=== PATIENT | male | born 1950 | race Caucasian/White ===

== ENCOUNTER → 2020-10-16 11:58 | Outpatient (BNVA) | payer OTHER, MEDICARE, SELFPAY | PROVIDERS: Visit Provider Surgery | DX: Z20.822 Contact with and (suspected) exposure to COVID-19 (principal) | CPT/HCPCS: 87635 ==

== ENCOUNTER 2020-10-21 16:47 | Observation (INO) | payer OTHER, MEDICARE, SELFPAY ==
[2020-10-20 09:45] VITALS: BMI 26.5
[2020-10-21] VITALS (13 sets, daily range): BP systolic 125–149; BP diastolic 86–98; PULSE 49–80; RESP 15–19; TEMP 36.6–36.7; O2SAT 2–100
--- NOTE | 2020-10-21 11:08 | W.PM.OPSUD ---
Surgery/Procedure H&P Update DATE OF PROCEDURE: October 21, 2020 DATE H&P PERFORMED: 10/09/20 H&P UPDATE INFORMATION: I have reviewed H&P completed within last 30 days, I have examined patient prior to procedure and No changes to prior documentation PREOP DIAGNOSIS: Incisional hernia PLANNED PROCEDURE: Operation Date: 10/21/20 12:05 Proposed Procedures p Laparoscopic possible open Incisional Hernia Repair w/mesh 08607 k43.2(Not Applicable) - Dewey Wan MD
[2020-10-21] MEDS: sodium chloride 0.9% 1,000 ML 30 ML IV (11:18)
--- NOTE | 2020-10-21 11:20 | P.ANESASSM_ITS ---
Pre-Anesthetic Assessment Pre-Anesthetic Assessment: Height/Weight: Height 1.78 m Weight 83.915 kg Temp Pulse Resp BP Pulse Ox 98 F 78 16 125/86 95 10/21/20 11:01 10/21/20 11:01 10/21/20 11:01 10/21/20 11:01 10/21/20 11:01 Preop Diagnosis: Incisional hernia Proposed Procedure: Operation Date: 10/21/20 12:05 Proposed Procedures p Laparoscopic possible open Incisional Hernia Repair w/mesh 74287 k43.2(Not Applicable) - Dewey Wan MD Was Beta Dinora taken within 24 hours: Yes Was Clonidine taken within 24 hours: N/A Last intake: Intake Last Liquid Date 10/20/20 Last Liquid Time 22:30 Last Solid Date 10/20/20 Last Solid Time 20:00 Social: Social History: Tobacco (h/o smoking quit 2 months ago) and No alcohol Exam: Pre-Anes Outpt Exam: alert and oriented x 3 Additional Exam Findings (including area of procedure): BBS decreased, irreg Airway: Submandibular: WNL Cervical ROM: WNL MP: 2 Dentition: Full Additional comments: [place] [facility]: Pulmonary: COPD and Sleep apnea CV/HEM: CV/HEM: Afib and HTN Neuropsych: Neuropsych: Seizure Anesthetic Plan: ASA status: 3 Anesthesia: General Risk of > 500 ml b lood loss (7ml/kg in children): No Meds/Allergies Current Medications: Current Medications Generic Name Dose Route Start Last Admin Trade Name Freq PRN Reason Stop Dose Admin Sodium Chloride 1,000 mls @ 30 ml s/hr 10/21/20 11:00 10/21/20 11:18 Sodium Chloride 0.9% IV 10/22/20 10:59 30 mls/hr .Q24H JANE Administration PFSH Anesthesia PFSH: Medical History (Updated 10/09/20 @ 11:55 by Dewey Wan MD) A-fib COPD (chronic obstructive pulmonary disease) Hypertension Sleep apnea in adult Surgical History (Updated 10/09/20 @ 11:55 by Dewey Wan MD) History of AAA (abdominal aortic aneurysm) repair 2009 History of colonoscopy with polypectomy 2018 History of left inguinal hernia repair 2016 History of vascular surgery rt and left leg 2019 Family History (Updated 10/09/20 @ 11:01 by Ananya Mishra RN) Denies family history of Anesthesia complication Bleeding disorder Social History (Updated 10/09/20 @ 11:01 by Ananya Mishra RN) Smoking and tobacco status: current every day smoker cigarettes and cigars Data Anesthesia Cardiac Studies: No Data to Display
--- NOTE | 2020-10-21 12:26 | PM.OP ---
Operative Report Date of procedure: October 21, 2020 Pre-op Diagnosis: Incisional hernia Post-op Diagnosis: Reducible incisional hernia Procedure Done: Laparoscopic repair of incisional hernia with Proceed mesh measuring 20 x 20 cm Pathology: none sent Surgeon: Dewey Wan Anesthesia: General Condition: stable Disposition: PACU Procedure: The patient was taken to the Operating Room and was intubated under general anesthesia after the antibiotic had been administered. The abdomen was prepped and draped in a sterile manner. Using a 15 blade, a 2-cm incision was made in the right upper quadrant in the anterior axillary line and pneumoperitoneum was created using Verres needle. A 10 mm Ricky port was placed and 15 mm of pneumoperitoneum was created after a 10 mm 30? scope had been introduced. 5 mm ports were placed in the left lower quadrant under direct visualization. A spinal needle was introduced through the abdominal wall and the edges of the hernial defect were marked and measured 10 x 10 cm. A 5 cm margin was marked on the abdominal wall on the outer edge of the hernial defect. 20 x 20 cm Proceed mesh was then cut and 4 separate 2-0 [place]Julian sutures were placed at the 4 corners of the mesh. Grannie needle was passed through the stab incisions and used to grasp the free ends of the [place]Jul[place] sutures which were then used to pull the mesh up against the abdominal wall; 5 mm SecurStraps were placed 1 cm apart along the edge of the mesh to hold it against the abdominal wall. At the end of this, it was noted that the mesh was well positioned over the hernial defect. 40 cc of saline, Exparel and 0.5% Marcaine was infiltrated under laparoscopic visualization bilaterally for a TAP block. All ports were removed under direct visualization and there was no bleeding noted from the port sites. The external oblique aponeurosis was approximated at this port site using figure of eight 0 Vicryl suture. The subcutaneous tissue was approximated using 3-0 Vicryl sutures. The skin at port sites was closed using subcuticular 4-0 Monocryl suture. The stab incisions and the port sites were covered with Dermabond. Abdominal binder was placed at the end of the procedure. The patient was extubated and transferred to recovery room in stable condition.
--- NOTE | 2020-10-21 12:42 | SUR.PHASEI ---
1240- ORAL AIRWAY OUT, SIMPLE MASK AT 6LPM. SAT 100%
[2020-10-21] MEDS: HYDROcodone-acetaminophen 5-325 mg Tablet 1 TAB PO ×2 (12:59→15:50)
--- NOTE | 2020-10-21 13:48 | ANE.PACU2 ---
Inpatient post-anesthesia follow up: Airway intact: Yes Vital signs: Temperature 98 F Pulse Rate 53 Respiratory Rate 16 Blood Pressure 142/92 Pulse Oximetry 95 Oxygen Delivery Me thod Room Air Oxygen Flow Rate 6 Fraction of Inspir ed Oxygen Hydration adequate: Yes Nausea and vomiting: No Pain level: 2 Mental status: Baseline
[2020-10-21] MEDS: morphine 4 mg/mL SDV 1 mL IVP (14:21)
--- NOTE | 2020-10-21 15:53 | SUR.PHASEII ---
1545 dr canchola here and new orders noted,order for another pain rx and incentive spirometer to go home with this,respiratory here and instructed on this and demonstrated understanding
--- NOTE | 2020-10-21 16:18 | SUR.PHASEII ---
1600 pt sitting up on side of bed and stood up for about 1 minute and stated he wants back to bed to lie down,informed dr canchola about this and will call for ops bed,pt and daughter informed of this
--- NOTE | 2020-10-21 16:47 | SUR.PHASEII ---
1635 report to Judith Ludwig LPN on 2nd floor and brought pt via stretcher with daughter Johana at bedside
[2020-10-21] MEDS: ketorolac 30 mg/mL INJ 15 MG IVP ×2 (17:22→23:06)
[2020-10-21] MEDS: levETIRAcetam 500 mg Tablet PO (17:41)
[2020-10-21] MEDS: sennosides-docusate Tablet 1 TAB PO (17:41)
[2020-10-21] MEDS: D5-NS 0.45% + KCL 20 mEq 20 MEQ/1,000 ML BAG 50 MEQ IV (17:41)
[2020-10-21] MEDS: metoprolol tartrate 25 mg Tablet PO (17:41)
[2020-10-22] VITALS (9 sets, daily range): BP systolic 133–148; BP diastolic 75–93; PULSE 57–67; RESP 16–18; TEMP 36.4–36.9; O2SAT 88–100
[2020-10-22] MEDS: ketorolac 30 mg/mL INJ 15 MG IVP ×2 (05:21→10:24)
[2020-10-22] MEDS: albuterol 8 gm MDI 1 PUFF INHALATION ×2 (08:05→11:24)
--- NOTE | 2020-10-22 08:33 | PC.NURSE ---
Abdominal wounds inspected. No drainage noted three stabs dermabond intact. Patient wearing abdominal binder and only complaints of bloated feeling. Has burped but not passed any gas or had any bowel movements thus far in the shift. Will continue to monitor.
[2020-10-22] MEDS: sennosides-docusate Tablet 1 TAB PO (08:34)
[2020-10-22] MEDS: metoprolol tartrate 25 mg Tablet PO (08:34)
[2020-10-22] MEDS: levETIRAcetam 500 mg Tablet PO (08:34)
--- NOTE | 2020-10-22 11:25 | PC.CHAP ---
Pastoral Care Encounter/Spiritual Assessment Type of Contact [] Declined senior clerk visit [] Patient/Family/Request visit [] Outpatient visit [] Follow-up visit [] Physician referral [] Code/Alert [x] Routine visit [] Staff referral [] Actively dying [] Patient sleeping [] Family support [] [] Out of room [] Palliative care [] [x] Receiving care in room [] Pre-surgical visit [] Trauma [] Long length of stay [] ICU visit [] Other: Relational/Emotional Strength [x] Patient feels connected with others/family/visitors/staff [] Distress [] Loneliness/isolation [] Abandonment Spirituality of Patient [x] Person of Jessie [] Attends Anabaptist of their Jessie [x] Believes in Prayer [] Reads Bible or Worship materials [] There are Spiritual issues to be addressed Pharmacy Teacher Interventions [x] Prayer [x] Active listening [x] Non-anxious presence [x] Spiritual/emotional support [] Crisis/trauma care [x] Spiritual counseling [] Bereavement support [] Provided bereavement packet [] Provided Bible/devotional materials [] Provided toy/stuffed animal, coloring book to patient or family member [] Provided Communion [] Anointing/[place] [] Salvation [x] Completed spiritual assessment [] Other: Impact on Illness or Injury [] Angry [] Fearful [x] Anxious [] Often cries [] Exhaustion [] Unable to work [] Unable to attend methodist [] Unable to walk/stand [] Unable to read [] Unable to drive [] Unable to eat/drink [] Unable to sleep [] Unable to be with family [] Patient intubated [] Other: Summary has had surgery on herna feels good going home. Time spent with patient 10 mins
--- NOTE | 2020-10-22 12:33 | PM.DCS ---
Discharge Providers Date of Admission: 10/21/20 16:47 Date of Discharge: October 22, 2020 Attending Provider at Admission: Dewey Wan MD Attending Provider at Discharge: Dewey Wan MD Reason for Visit Reason for Visit: lap poss open incisional hernia Hospital Course Hospital Course This is a 70-year-old male who underwent laparoscopic repair of incisional hernia on 10/21/2020. Patient had issues with pain control and hypoxia postop and was admitted overnight for observation. At time of discharge he was tolerating a regular diet, ambulating and his pain was well controlled with oral pain medications. His vital signs were stable. Physical Exam Narrative: EXAM NARRATIVE: Abdomen: Soft, tender, Aftab distended Discharge Data Data Completed and Pending: Pending at discharge Category Date Time Status ES surgery / GI i mages Routine Exams 10/21/20 11:01 Taken Vitals: Last Vital Signs Temp 97.9 F 10/22/20 12:00 Pulse 62 10/22/20 12:00 Resp 18 10/22/20 12:00 BP 133/75 10/22/20 12:00 Pulse Ox 88 L 10/22/20 12:00 Discharge Plan Discharge Patient Disposition: Home Condition: Stable Prescriptions: New hydrocodone-acetaminophen 5-325 mg tablet 1 tab PO Q6H PRN (Reason: pain) Qty: 20 RF: 0 Zofran 4 mg tablet 4 mg PO Q6H PRN (Reason: nausea and vomiting) Qty: 20 RF: 0 Colace 100 mg capsule 100 mg PO BID Qty: 30 RF: 0 Continued apixaban 5 mg tablet 5 mg PO BID RF: 0 dofetilide 500 mcg capsule 500 mcg PO Q12H RF: 0 levalbuterol tartrate 45 mcg/actuation HFA aerosol inhaler 2 inh inhalation Q6H RF: 0 levetiracetam 500 mg tablet 500 mg PO BID RF: 0 tiotropium bromide 18 mcg capsule, w/inhalation device 1 cap inhalation DAILY RF: 0 metoprolol tartrate 25 mg tablet 25 mg PO BID RF: 0 albuterol sulfate [ProAir HFA] 90 mcg/actuation HFA aerosol inhaler 1 inh inhalation QID RF: 0 Discharge Orders: Discharge Order (Routine); Ordered 10/22/20 Ordered By: Dewey Wan Referrals: Dewey Wan MD [Physician] - 11/06/20 10:15 am Patient Instructions: Hydrocodone/Acetaminophen (By mouth), Laxative, Stool Softeners (By mouth), Ondansetron (By mouth), Ventral Hernia (GEN), Post Anesthesia Care Activity Restrictions/Additional Instructions: Diet Advance to normal diet as tolerated, increase fluid intake as much as possible. Activity Avoid strenuous activity for 2 weeks but continue with daily activities including walking as tolerated. Do not lift more than 10 pounds for 2 weeks Return to work/school You can return to work/ school whenever you feel ready as long as you don?t have to lift more than 10 pounds at work. If you have paperwork that needs to be completed for time off from work, please contact my office Driving You can resume driving once you stop using narcotic pain medications, and transition to non-opioid pain medications like Tylenol, Motrin, Aleve, etc. Medications Pain Take opioid pain medications as prescribed and transition to non-opioid pain medications like Tylenol, Motrin, Aleve etc. over the next few days. The goal of the pain medications is to make the pain bearable and not to be pain free since you recently had surgery. Resume all home medications after surgery as per the medication reconciliation list Nausea Nausea is common after surgery, take nausea medications as needed and stay on a liquid bland diet until nausea resolves. Constipation The combination of surgery, anesthesia and pain medications can result in constipation. Take stool softeners as prescribed. If you do not have a bowel movement in 3 days, please take an pypv-eom-kufkigy laxative like MiraLAX to address the constipation. Shower It is ok to shower but avoid getting the wound wet for 48 hours after surgery. Do not soak in bathtub, swimming pool or hot tub for 2 weeks. Wound care Wear abdominal binder at all times while ambulating, you to can take it off when you are in bed The glue applied to the incision will peel slowly over the next two weeks. The stitches used are dissolvable and will not need to be removed. Do not apply antibiotics or other medications on the incision Problems with the wound You can develop some redness around the incision from bruising after surgery. If there is increasing pain, redness, tenderness around the incision with or without drainage, please contact my office to rule out an infection. Sometimes the skin at the incisions can separate, resulting in reopening of the wound. Cover the wound with antibiotic cream and sterile dressings and contact my office. Contact physician Call the office at [phone] during office hours or go the Emergency Room after hours for - ?Fever to 100.4 or greater ?Shaking chills ?Pain that increases over time ?Redness, warmth, or pus draining from incision sites ?Persistent nausea or inability to take in liquids Discharge Attestations Time Spent in Discharge Care*: less than 30 min Quality Metrics Clinical Quality Measures During this hospital stay, did patient experience: None Coding Level of Care Code [facility] VITOR note
--- NOTE | 2020-10-23 11:22 | PC.RESP ---
Smoking Cessation and Pulmonary Rehab information sent to patient
== END 2020-10-22 16:15 | disposition home or self-care (01) ==
LOC: MEDSURG 16:48
PROVIDERS: Admitting Provider Surgery; Visit Provider Surgery
PROC: 0WQF4ZZ Repair Abdominal Wall, Percutaneous Endoscopic Approach (ICD-10-PCS; CPT 49654; principal; 2020-10-21 11:55)
DX: K43.2 Incisional hernia without obstruction or gangrene (principal); I48.91 Unspecified atrial fibrillation; J44.9 Chronic obstructive pulmonary disease, unspecified; I10 Essential (primary) hypertension; G47.30 Sleep apnea, unspecified; F17.210 Nicotine dependence, cigarettes, uncomplicated
CPT/HCPCS: 49654; 94640; 96374; C9290; G0378; J0690; J1100; J1885; J2250; J2270; J2405; J2704; J2710; J3010; J3490; J3535; J7030

== ENCOUNTER 2020-10-26 16:47 | Inpatient (IN) | payer OTHER, MEDICARE, SELFPAY ==
[2020-10-26] VITALS (10 sets, daily range): BP systolic 109–131; BP diastolic 77–98; PULSE 60–100; RESP 16–24; TEMP 36.7–37.2; O2SAT 93–100; BMI 26.1
--- NOTE | 2020-10-26 | XRR_ITS ---
[facility] Final Radiology Report Call: [phone] Name: CHICHO FIGUEREDO Age: 70Years U Date: 10/26/2020 SSN: -- : 1950 Study: XR ABDOMEN COMPLETE W A SNGL VIEW CXR Requesting Physician: FRIEDA WALDRON PROCEDURE INFORMATION: Exam: XR Complete Acute Abdomen Series Exam date and time: 10/26/2020 6:24 PM Age: 70 years old Clinical indication: Bloating and other: Cough; Prior surgery; Surgery type: Hernia, aaa TECHNIQUE: Imaging protocol: XR complete acute abdomen series, including 2 or more views of the abdomen and a single view chest. COMPARISON: ES surgery / GI images 10/21/2020 8:01 AM FINDINGS: Lungs: Normal. No consolidation. Pleural spaces: Normal. No pleural effusions. No pneumothorax. Heart/Mediastinum: Normal. No cardiomegaly. Gastrointestinal tract: Dilated small bowel loops with air-fluid levels. Moderate fecal volume. Intraperitoneal space: No free air. Surgical clips in the left abdomen and the left groin. Vasculature: Scattered atherosclerosis. Bones/joints: Normal. No acute fracture. Soft tissues: Normal. Other findings: EVAR noted in the abdomen and pelvis. IMPRESSION: 1. Dilated bowel loops with air-fluid levels suspicious for small bowel obstruction. 2. Negative chest. Thank you for allowing us to participate in the care of your patient. Dictated and Authenticated by: Grzegorz Goddard MD 10/26/2020 7:15 PM Central Time ([place] & [place]) MARY
[2020-10-26 17:34] LABS: Basophils % 0.3 %; Eosinophils # 0.2 10^3/uL (0.0-0.8); Eosinophils % 1.6 %; Hematocrit 45.5 % (42.0-52.0); Hemoglobin 15.1 g/dL (11.7-16.6); Lymphocytes # 0.9 10^3/uL (0.8-4.8); Lymphocytes % 6.9 %; Mean Corpuscular HGB Conc 33.2 g/dL (30.0-36.0); Mean Corpuscular Hemoglobin 29.4 pg (28.0-34.0); Mean Corpuscular Volume 88.5 fL (80-94); Mean Platelet Volume 10.2 fL (7.4-10.4); Monocytes # 1.5 10^3/uL (0.2-0.9); Monocytes % 12.2 %; Neutrophils # 9.77 10^3/uL (1.8-7.7); Neutrophils % 78.7 %; Nucleated Red Blood Cells % 0 %; Platelet Count 251 10^3/cmm (130-400); Red Blood Count 5.14 10^6/uL (4.1-5.3); Red Cell Distribution Width 13.4 % (12.1-15.1); White Blood Count 12.4 10^3/uL (4.0-10.0)
--- NOTE | 2020-10-26 17:37 | ECG_ITS ---
[facility] Test Date: 2020-10-26 Pat Name: Kimo Hernandez Department: Room: Gender: Male Tobacco Educator: : 1950 Requested By: Rosey Cooper Order Number: [id number] Ben MD: Samina Brewster M.D. Measurements Intervals [place] Rate: 92 P: NV: QRS: 58 QRSD: 110 T: 29 QT: 383 QTc: 476 Interpretive Statements ATRIAL FIBRILLATION NONSPECIFIC T-WAVE ABNORMALITY ABNORMAL RHYTHM ECG No previous ECG available for comparison Electronically Signed On 10-27-2020 12:11:06 CDT by Samina Brewster M.D. [email or web address]
[2020-10-26] MEDS: sodium chloride 0.9% 1,000 ML 999 ML IV (17:47)
[2020-10-26 17:52] LABS: Lactate (Lactic Acid level) 1.4 mmol/L (0.5-2.2)
[2020-10-26 17:53] LABS: Alanine Aminotransferase 16 U/L (0-41); Albumin Level 3.6 g/dL (3.5-5.2); Alkaline Phosphatase 51 IU/L (40-130); Anion Gap 13.3 (5-19); Aspartate Amino Transferase 18 U/L (0-40); Blood Urea Nitrogen 26 mg/dL (8-23); Calcium 8.6 mg/dL (8.5-10.5); Carbon Dioxide 28 mmol/L (22-29); Chloride 99 mmol/L (98-107); Globulin 2.5 g/dL (1.3-4.6); Glomerular Filtration Rate 133.2 mL/min (90-130); Glucose 115 mg/dL (65-115); Lipase 23 U/L (13-60); Osmolality Calculated 288 mOsm/kg (285-295); Potassium 4.3 mmol/L (3.5-5.1); Sodium 136 mmol/L (136-145); Total Bilirubin 1.2 mg/dL (0.15-1.2); Total Protein 6.1 g/dL (6.6-8.7)
--- NOTE | 2020-10-26 17:53 | W.ED.ABDPA2 ---
HPI - Abdominal Pain General: Chief Complaint: Abdominal Pain Stated Complaint: bloating, post surgery () Time Seen by Provider: 10/26/20 17:13 Source: patient and family (daughter) Mode of arrival: ambulatory Limitations: no limitations History of Present Illness: HPI narrative: Pleasant 70-year-old male patient presents to the emergency department with his daughter who is at bedside. He reports hernia surgery by Dr. Wan on Wednesday, October 21, 2020. He states did not feel well after surgery and was kept overnight. He reports was discharged the following day, states was still not feeling well, describes not feeling well as nausea vomiting and weakness. He states went home. His daughter reports he continued to decline over the weekend. She took him to [place] to the MA who then referred him to [facility] last night. CT scan of the chest abdomen pelvis completed, patient states he was negative for blood clot, denies bowel obstruction, received fleets enema with passage of gas and bowel movement. He states was feeling better after receiving IV fluids and went home. His daughter states today, he is continued to decline again. He was sent to the ED for evaluation by Dr. Wan. I have inquired from [place] CT scans and serology results from yesterday's visit. He reports increased shortness of breath, history of atrial fibrillation, resumed his Eliquis last night. He reports thickened sputum, has history of COPD. Oxygen was initiated last night for home use while at [place]. He denies chest pain. He states his shortness of breath is due to progressive weakness from the surgery. He reports is not passing gas nor has he had a bowel movement today. He reports not able to drink very much as he his belly feels full. He denies nausea vomiting fever or chills. Quality: other (Complains of bloating, denies abdominal pain) Context: recent surgery/procedure Associated Symptoms: Reports anorexia, bloating, change in bowel habits and constipation; Denies chills, dysuria and fever(s) Review of Systems General: Reports: 10 or more systems reviewed and unremarkable except in HPI and below Const: Denies: fever(s), chills or diaphoresis Eyes: Denies: blurry vision or eye redness ENMT: Denies: throat pain, dental pain or disequilibrium Card: Denies: chest pain, palpitations or irregular heart rhythm Resp: Denies: dyspnea, productive cough, non-productive cough or wheezing GI: Reports: constipation, bloating and change in bowel habits : Denies: dysuria Musc: Denies: neck pain, back pain, joint pain or joint warmth Skin/Breast: Denies: rash or pruritus Neuro: Denies: headache(s), weakness in extremities or behavioral changes Psych: Denies: anxiety, depression, sleeping more or change in appetite Alpesh/Lymph: Denies: easy bruising PFSH ED PFSH: Medical History A-fib COPD (chronic obstructive pulmonary disease) Hypertension Sleep apnea in adult Surgical History History of AAA (abdominal aortic aneurysm) repair 2009 History of colonoscopy with polypectomy 2018 History of left inguinal hernia repair 2016 History of vascular surgery rt and left leg 2019 S/P hernia repair incisional Family History Denies family history of Anesthesia complication Bleeding disorder Social History Smoking and tobacco status: current every day smoker cigarettes and cigars Physical Exam Const: COMMON NORMALS: no acute distress, patient oriented x3 and alert GENERAL APPEARANCE: cooperative, well kempt, well developed and frail appearing; not anxious and not ill appearing NUTRITIONAL APPEARANCE: overweight ORIENTATION/CONSCIOUSNESS: Yes awake, Yes oriented to person, Yes oriented to place and Yes oriented to time HENMT: COMMON NORMALS: normocephalic, atraumatic, EAC's normal, Normal external nose present and moist oral mucous membranes HEAD & SCALP: normal to inspection, normocephalic and atraumatic FACE & SINUS: normal facial exam and face symmetric NOSE: Normal external nose present and Normal nares present EXTERNAL AUDITORY CANAL: EAC's normal MOUTH: lip normal, tongue normal and moist mucous membranes abnormal (dry) Eye: COMMON NORMALS: Equal, round and reactive pupils present and EOMs intact bilaterally GENERAL EYE: appearance normal, both eyes and all related structures PUPIL: Yes Equal, round and reactive pupils present Neck/C-Spine: COMMON NORMALS: full ROM and no lymphadenopathy GENERAL: Yes normal visual inspection and Yes trachea midline CERVICAL SPINE: Yes cervical ROM normal Lymph: LYMPHATIC: no lymphadenopathy noted Chest: COMMONS NORMALS: normal inspection of the chest, normal palpation of entire chest wall and normal palpation of the breasts BREAST/AXILLA PALPATION: Yes normal palpation of the breasts Resp: COMMON NORMALS: normal respiratory effort, No retractions, No use of accessory muscles and clear to auscultation bilaterally EFFORT & INSPECTION: Yes able to speak in complete sentences AUSCULTATION: clear to auscultation bilaterally Cardio: COMMON NORMALS: regular rate, regular rhythm, S1 normal heart sound present, S2 normal heart sound present and Peripheral pulses 2+ throughout RATE: regular rate RHYTHM: regular rhythm HEART SOUNDS: S1 normal heart sound present and S2 normal heart sound present PERIPHERAL PULSES: Peripheral pulses 2+ throughout GI: COMMON NORMALS: Soft to palpation INSPECTION: Yes abdominal wall ecchymosis (From surgery), No Abdominal wall edema, Yes abdominal distension, Yes incision Inspection of incision: healing well, Yes central obesity and Yes scar AUSCULTATION: Yes Hypoactive bowel sounds present PALPATION: Yes Soft to palpation : COMMON NORMALS: Yes no CVA tenderness BLADDER/KIDNEY EXAM: Yes no CVA tenderness Back/Pelvis: COMMON NORMALS: no CVA tenderness and thoracic and lumbar spine normal to inspection Extremity: COMMON NORMALS: normal to inspection, full ROM, capillary refill normal, no clubbing, cyanosis or edema, no calf tenderness and no pedal edema GENERAL: Yes normal exam except as noted Neuro: COMMON NORMALS: patient oriented x3 and no focal motor deficits SENSORIUM/ORIENTATION: Yes alert, Yes oriented to person, Yes oriented to place and Yes oriented to time Psych: COMMON NORMALS: mental status grossly normal, Normal thought process present, cooperative, normal affect, speech normal and activity/motor behavior normal APPEARANCE: Yes well kempt ACTIVITY/MOTOR BEHAVIOR: Yes appropriate eye contact SPEECH: Yes normal speech THOUGHT PROCESS: Normal thought process present Skin: COMMON NORMALS: no rashes or lesions noted and turgor normal GENERAL SKIN EXAM: no rashes or lesions noted and turgor normal Course Consultations: Consultation #1: Dr Wan, discussed with Dr. Wan history of present illness along with patient's visit to [place] yesterday. CT scan from today, x-ray abdominal series and serology findings discussed. Advised to admit under his services with consulting hospitalist in regards to atrial fibrillation and elevated troponin. Advised NG tube at this time with Pepcid 20 mg twice daily, advised CBC and BMP in the morning. Consultation #2: Dr. Martines, hospitalist, history of present illness, clinical findings as well as radiology and serological findings discussed. Also discussed my conversation with Dr. Wan. Advised Lovenox 1 mg/kg subcu twice daily, advised to admit to telemetry on MedSurg. Time: 20:15 Vital Signs: Vital signs: Vital Signs Temperature 98.0 F 10/26/20 22:32 Pulse Rate 81 10/26/20 23:11 Respiratory Rate 17 10/26/20 23:05 Blood Pressure 131/77 10/26/20 22:32 Pulse Oximetry 93 10/26/20 23:05 MDM - Abdominal Pain MDM Narrative: Medical decision making narrative: 70-year-old male patient presents to the emergency department with continued weakness and abdominal distention following hernia surgery approximately 1 week ago. Lactic acid 1.4, CBC with slight elevation 12.4 thousand. He is not anemic. Platelets normal. Creatinine 0.6. Heart rhythm noted to be atrial fibrillation upon exam. He has complained of shortness of breath, was provided oxygen for home use by [facility] last night. Cardizem administered here in the ED due to rate increasing to 110-115. He converted to sinus rhythm with occasional supraventricular premature complexes. Ventricular rate 70-80. Blood pressure has remained normal. Serial troponins with negative delta -1.02. Acute abdominal series findings with normal chest but presumed small bowel obstruction, CT abdomen pelvis with IV contrast revealed nonspecific dilated loops of the small bowel with scattered air-filled levels most likely representing ileus pattern. Spoke with Dr. Wan regarding findings, advised to consult hospitalist in regards to atrial fibrillation and elevated troponin. Oxygen saturation remained 92 to 98% during his stay on 2 L nasal cannula. I have requested CT scans from [place], scan results are still pending at this time. Daughter informed me he did not have a blood clot, CTA of chest abdomen pelvis remain requested from [place]. They are not available for my review. I discussed this with hospitalist Dr. Martines. Differential Diagnosis: Differential diagnosis abdominal pain: Likely abdominal pain, acute appendicitis, constipation and small bowel obstruction Lab Data: Labs: Lab Results 10/26/20 10/26/20 10/26/20 Range/Units 17:25 17:25 17:25 WBC 12.4 H (4.0-10.0) 10^3/ uL RBC 5.14 (4.1-5.3) 10^6/u L Hgb 15.1 (11.7-16.6) g/dL Hct 45.5 (42.0-52.0) % MCV 88.5 (80-94) fL MCH 29.4 (28.0-34.0) pg MCHC 33.2 (30.0-36.0) g/dL RDW 13.4 (12.1-15.1) % Plt Count 251 (130-400) 10^3/c mm MPV 10.2 (7.4-10.4) fL Neut % (Auto) 78.7 % Lymph % (Auto) 6.9 % [place] % (Auto) 12.2 % Eos % (Auto) 1.6 % Baso % (Auto) 0.3 % Neut # (Auto) 9.77 H (1.8-7.7) 10^3/u L Lymph # (Auto) 0.9 (0.8-4.8) 10^3/u L [place] # (Auto) 1.5 H (0.2-0.9) 10^3/u L Eos # (Auto) 0.2 (0.0-0.8) 10^3/u L Baso # (Auto) 0.0 (0.0-0.1) 10^3/u L Nucleated RBC % (a uto) 0 % Nucleated RBCs # 0.0 /100WBC Sodium 136 (136-145) mmol/L Potassium 4.3 (3.5-5.1) mmol/L Chloride 99 (98-107) mmol/L Carbon Dioxide 28 (22-29) mmol/L Anion Gap 13.3 (5-19) BUN 26 H (8-23) mg/dL Creatinine 0.6 L (0.7-1.2) mg/dL GFR Calculation 133.2 H (90-130) mL/min Glucose 115 (65-115) mg/dL Calculated Osmolal ity 288 (285-295) mOsm/k g Lactate 1.4 (0.5-2.2) mmol/L Calcium 8.6 (8.5-10.5) mg/dL Total Bilirubin 1.2 (0.15-1.2) mg/dL AST 18 (0-40) U/L ALT 16 (0-41) U/L Alkaline Phosphata se 51 (40-130) IU/L Troponin T Baselin e (0-15) ng/L Troponin T 120 Min kosta (0-15) ng/L Delta Troponin T (0-10) ABS# NT-Pro-B Natriuret Pep (0-125) pg/mL Total Protein 6.1 L (6.6-8.7) g/dL Albumin 3.6 (3.5-5.2) g/dL Globulin 2.5 (1.3-4.6) g/dL Lipase 23 (13-60) U/L 10/26/20 10/26/20 10/26/20 Range/Units 17:25 17:25 19:38 WBC (4.0-10.0) 10^3/ uL RBC (4.1-5.3) 10^6/u L Hgb (11.7-16.6) g/dL Hct (42.0-52.0) % MCV (80-94) fL MCH (28.0-34.0) pg MCHC (30.0-36.0) g/dL RDW (12.1-15.1) % Plt Count (130-400) 10^3/c mm MPV (7.4-10.4) fL Neut % (Auto) % Lymph % (Auto) % [place] % (Auto) % Eos % (Auto) % Baso % (Auto) % Neut # (Auto) (1.8-7.7) 10^3/u L Lymph # (Auto) (0.8-4.8) 10^3/u L [place] # (Auto) (0.2-0.9) 10^3/u L Eos # (Auto) (0.0-0.8) 10^3/u L Baso # (Auto) (0.0-0.1) 10^3/u L Nucleated RBC % (a uto) % Nucleated RBCs # /100WBC Sodium (136-145) mmol/L Potassium (3.5-5.1) mmol/L Chloride (98-107) mmol/L Carbon Dioxide (22-29) mmol/L Anion Gap (5-19) BUN (8-23) mg/dL Creatinine (0.7-1.2) mg/dL GFR Calculation (90-130) mL/min Glucose (65-115) mg/dL Calculated Osmolal ity (285-295) mOsm/k g Lactate (0.5-2.2) mmol/L Calcium (8.5-10.5) mg/dL Total Bilirubin (0.15-1.2) mg/dL AST (0-40) U/L ALT (0-41) U/L Alkaline Phosphata se (40-130) IU/L Troponin T Baselin e 17 H (0-15) ng/L Troponin T 120 Min kosta 15.98 H (0-15) ng/L Delta Troponin T -1.02 L (0-10) ABS# NT-Pro-B Natriuret Pep 1209 H (0-125) pg/mL Total Protein (6.6-8.7) g/dL Albumin (3.5-5.2) g/dL Globulin (1.3-4.6) g/dL Lipase (13-60) U/L Imaging Data ^: KUB: Radiologist's impression: Acute abdomen series; Impression; dilated bowel loops with air-filled level suspicious for small bowel obstruction. Negative chest CT Abd/Pel: Radiologist's impression: [address] [address] [address] Scan Report Signed Patient: Lora Hernandez #: [id number] : 1950Acct#:[id number] Age/Sex: 70 / MADM Date: 10/26/20 Loc: ERRoom/Bed: Attending Dr: Ordering Provider/Ordering MD: Rosey Raygoza Date of Service: 10/26/20 Procedure(s): CT abdomen pelvis w con* [id number] Accession Number(s): [id number] Report Number: [id number] PROCEDURE INFORMATION: Exam: CT Abdomen And Pelvis With Contrast Exam date and time: 10/26/2020 7:10 PM Age: 70 years old Clinical indication: Bloating; Abdominal pain; Localized; Upper; Prior surgery; Surgery type: Aaa, hernia SX on Monday; Additional info: Hernia surgery, abd bloating TECHNIQUE: Imaging protocol: Computed tomography of the abdomen and pelvis with contrast. Radiation optimization: All CT scans at this facility use at least one of these dose optimization techniques: automated exposure control; mA and/or kV adjustment per patient size (includes targeted exams where dose is matched to clinical indication); or iterative reconstruction. Contrast material: OMNI 300; Contrast volume: 95 ml; Contrast route: INTRAVENOUS (IV); COMPARISON: ES surgery / GI images 10/21/2020 8:01 AM RADIATION DOSE METRICS: Total DLP (mGy-cm): 1697.96 FINDINGS: Lungs: Emphysematous lung change. Pleural spaces: Small bilateral pleural effusions. Liver: Normal. No mass. Gallbladder and bile ducts: Normal. No calcified stones. No ductal dilation. Pancreas: Normal. No ductal dilation. Spleen: Normal. No splenomegaly. Adrenal glands: Normal. No mass. Kidneys and ureters: Normal. No hydronephrosis. Stomach and bowel: Moderately dilated small bowel loops with scattered air-fluid levels. No focal inflammatory wall thickening of the bowel. Scattered diverticulosis coli. Large bowel decompressed. No focal transition point is identified. Appendix: No evidence of appendicitis. Intraperitoneal space: No free air. Trace ascites. Retroperitoneal space: No retroperitoneal soft tissue hematoma. Vasculature: Abdominal aortic aneurysm treated with EVAR. Decompressed aneurysm sac. The proximal right internal iliac artery is stented, but occluded. 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 Fusiform aneurysmal dilation of the proximal right deep femoral artery. Surgical clips around the left common femoral artery with mildly ectatic appearance. Lymph nodes: Unremarkable. No enlarged lymph nodes. Urinary bladder: Unremarkable as visualized. Reproductive: Unremarkable as visualized. Bones/joints: Exaggerated lordosis of the lumbar spine. The lumbar spine demonstrates moderate discogenic and apophyseal joint degenerative changes at multiple levels. Anterior vertebral body wedge compression deformities of T9 and T10. Schmorl's nodes along the superior vertebral end plates of T11 and T12 with mild superior endplate concavity. Soft tissues: Small fluid collection in the left lower quadrant ventral abdominal wall. Scattered small foci of gas in the ventral abdominal wall. CT/CT abdomen pelvis w con* [id number] IMPRESSION: Nonspecific dilated small bowel loops with scattered air-fluid levels most likely representing ileus pattern. Radiation Dose CTDIVOL = (mGy): DLP = 1697.96 (mGy-cm) EKG Data ^: EKG 1: EKG interpretation date: 10/26/20 EKG interpretation time: 18:15 Computer generated interpretation: Atrial fibrillation, nonspecific T wave abnormality, atrial fibrillation with ventricular rate 92 EKG 2: EKG interpretation date: 10/26/20 EKG interpretation time: 21:00 Prior EKG tracings: available for review Computer generated interpretation: Sinus rhythm with occasional supraventricular premature complexes, prolonged QT interval, ventricular rate 70 atrial fibrillation no longer present Discharge Plan Discharge Patient Disposition: Admitted As Inpatient Admit Provider: Dewey Wan Clinical Impression: SBO (small bowel obstruction) Condition: Stable Coding Level of Care Code ED Salesforce Developer for Chg Fwd Exam Comprehensive
[2020-10-26 17:57] LABS: Creatinine Clr Calc Pharmacy 93.3596
[2020-10-26 18:11] LABS: Troponin(5th) Baseline 17 ng/L (0-15)
--- NOTE | 2020-10-26 18:57 | CTR_ITS ---
PROCEDURE INFORMATION: Exam: CT Abdomen And Pelvis With Contrast Exam date and time: 10/26/2020 7:10 PM Age: 70 years old Clinical indication: Bloating; Abdominal pain; Localized; Upper; Prior surgery; Surgery type: Aaa, hernia SX on Monday; Additional info: Hernia surgery, abd bloating TECHNIQUE: Imaging protocol: Computed tomography of the abdomen and pelvis with contrast. Radiation optimization: All CT scans at this facility use at least one of these dose optimization techniques: automated exposure control; mA and/or kV adjustment per patient size (includes targeted exams where dose is matched to clinical indication); or iterative reconstruction. Contrast material: OMNI 300; Contrast volume: 95 ml; Contrast route: INTRAVENOUS (IV); COMPARISON: ES surgery / GI images 10/21/2020 8:01 AM RADIATION DOSE METRICS: Total DLP (mGy-cm): 1697.96 FINDINGS: Lungs: Emphysematous lung change. Pleural spaces: Small bilateral pleural effusions. Liver: Normal. No mass. Gallbladder and bile ducts: Normal. No calcified stones. No ductal dilation. Pancreas: Normal. No ductal dilation. Spleen: Normal. No splenomegaly. Adrenal glands: Normal. No mass. Kidneys and ureters: Normal. No hydronephrosis. Stomach and bowel: Moderately dilated small bowel loops with scattered air-fluid levels. No focal inflammatory wall thickening of the bowel. Scattered diverticulosis coli. Large bowel decompressed. No focal transition point is identified. Appendix: No evidence of appendicitis. Intraperitoneal space: No free air. Trace ascites. Retroperitoneal space: No retroperitoneal soft tissue hematoma. Vasculature: Abdominal aortic aneurysm treated with EVAR. Decompressed aneurysm sac. The proximal right internal iliac artery is stented, but occluded. 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 Fusiform aneurysmal dilation of the proximal right deep femoral artery. Surgical clips around the left common femoral artery with mildly ectatic appearance. Lymph nodes: Unremarkable. No enlarged lymph nodes. Urinary bladder: Unremarkable as visualized. Reproductive: Unremarkable as visualized. Bones/joints: Exaggerated lordosis of the lumbar spine. The lumbar spine demonstrates moderate discogenic and apophyseal joint degenerative changes at multiple levels. Anterior vertebral body wedge compression deformities of T9 and T10. Schmorl's nodes along the superior vertebral end plates of T11 and T12 with mild superior endplate concavity. Soft tissues: Small fluid collection in the left lower quadrant ventral abdominal wall. Scattered small foci of gas in the ventral abdominal wall. CT/CT abdomen pelvis w con* [id number] IMPRESSION: Nonspecific dilated small bowel loops with scattered air-fluid levels most likely representing ileus pattern. Radiation Dose CTDIVOL = (mGy): DLP = 1697.96 (mGy-cm)
[2020-10-26 19:14] LABS: NT Pro B Type Natriuretic Pept 1209 pg/mL (0-125)
[2020-10-26] MEDS: iohexol 300 mg/mL 100 mL Btl IV (19:26)
--- NOTE | 2020-10-26 19:37 | ECG_ITS ---
[facility] Test Date: 2020-10-26 Pat Name: Kimo Hernandez Department: Room: 252 Gender: Male Assistive Technology Specialist: : 1950 Requested By: Rosey Cooper Order Number: [id number] Ben MD: Samina Brewster M.D. Measurements Intervals Emerson Rate: 70 P: 62 UT: 184 QRS: 56 QRSD: 101 T: 54 QT: 443 QTc: 480 Interpretive Statements SINUS RHYTHM WITH OCCASIONAL SUPRAVENTRICULAR PREMATURE COMPLEXES PROLONGED QT INTERVAL Compared to ECG 10/26/2020 18:11:30 Prolonged QT interval now present Atrial fibrillation no longer present T-wave abnormality no longer present Electronically Signed On 10-27-2020 12:34:24 CDT by Samina Brewster M.D. [id number]
[2020-10-26 20:05] LABS: Troponin 5 2HR 15.98 ng/L (0-15)
[2020-10-26 20:06] LABS: Troponin 5 2HR Delta -1.02 ABS# (0-10)
[2020-10-26] MEDS: famotidine 20 mg/2 mL INJ IVP ×2 (20:11→23:13)
[2020-10-26] MEDS: ipratropium-albuterol 3 mL Neb INHALATION (20:25)
--- NOTE | 2020-10-26 21:13 | PM.CONSULT ---
Providers/Reason For Consult Consulting Physican/Specialty*: Dr. Wan Reason for Consult*: Based on my assessment of his current condition I expect that the patient will spend more than 2 midnights in the hospital. Attending Physician: Dewey Wan MD History of Present Illness History of Present Illness Kimo Hernandez is a 70 year old male with past medical history of COPD, atrial fibrillation, seizure disorder, hypertension, laparoscopic hernia repair last week by Dr. Wan who presents to emergency room due to generalized weakness, abdominal distention, nausea and not being able to eat or drink. This started 2 to 3 days ago and progressively got worse. He denies any associated abdominal pain. He did not require a lot of pain medications after the surgery. No vomiting but he reports dry heaving. He had 1 bowel movement without blood. In the emergency room he was found to have ileus. The patient reports some shortness of breath. Telemetry revealed atrial fibrillation with RVR. He was given 10 mg of diltiazem and his heart rate normalized in mid 60s to mid 70s. THe shortness of breath is currently better. His troponin was slightly elevated. BNP was elevated as well. He denies any chest pain or palpitations. No dizziness or lightheadedness. He feels that his generalized weakness is better after treatments provided to the emergency room. He denies similar episodes in the past Review of Systems General: Reports: 10 or more systems reviewed and unremarkable except in HPI and below Meds/Allergies Home Medications and Allergies Home Medications Medication Instructions Recorded Confirmed Last Taken Type albuterol sulfate 90 mcg/actuation 1 inh INHALATION QID 10/09/20 10/26/20 10/25/20 History aerosol inhaler apixaban 5 mg tablet 5 mg PO BID@0800,199910/09/20 10/26/20 10/26/20 History dofetilide 500 mcg capsule 500 mcg PO Q12H 10/09/20 10/26/20 10/26/20 History levetiracetam 500 mg tablet 500 mg PO BID@0800,199910/09/20 10/26/20 10/26/20 History metoprolol tartrate 25 mg tablet 25 mg PO BID@0800,199910/09/20 10/26/20 10/26/20 History tiotropium bromide 18 mcg capsule 1 cap INHALATION DAILY@0800 10/09/20 10/26/2010/26/21 History with inhalation device hydrocodone-acetaminophen 1 tab PO Q6H PRN #20 tab 10/21/20 10/26/20 Unknown Rx ondansetron HCl [Zofran] 4 mg PO Q6H PRN #20 tab 10/21/20 10/26/20 Unknown Rx Vitamin D3 1 tab PO DAILY@0800 10/26/20 10/26/20 10/25/20 History budesonide-formoterol [Symbicort] 2 puff INHALATION Q12H 10/26/20 10/26/20 10/26/20 History docusate sodium [Colace] 100 mg PO BID@0800,2000 10/26/20 10/26/20 10/26/20 History Allergies Allergy/AdvReac Type Severity Reaction Status Date / Time No Known Allergies Allergy Verified 10/26/20 15:52 PFSH Acute PFSH: Medical History A-fib COPD (chronic obstructive pulmonary disease) Hypertension Sleep apnea in adult Surgical History History of AAA (abdominal aortic aneurysm) repair 2009 History of colonoscopy with polypectomy 2018 History of left inguinal hernia repair 2016 History of vascular surgery rt and left leg 2019 S/P hernia repair incisional Family History Denies family history of Anesthesia complication Bleeding disorder Social History Smoking and tobacco status: current every day smoker cigarettes and cigars Vitals/I&O/Wt Last Vital Signs Temp 98.9 F 10/26/20 16:51 Pulse 66 10/26/20 20:31 Resp 18 10/26/20 20:25 BP 109/81 10/26/20 17:30 Pulse Ox 98 10/26/20 20:25 10/26/20 10/26/20 10/26/20 06:59 14:59 22:59 Intake Total 1000 / 1000 Balance 1000 / 1000 Weight last 48 hrs Weight 82.554 kg Physical Exam Narrative: EXAM NARRATIVE: The patient is awake alert oriented. No acute distress. Mood and affect are appropriate. Responses are adequate. Normal speech Skin is warm and dry. Dry mucous membranes Neck supple. No JVD Lungs clear. No wheezes or crackles. Abdomen is distended, soft, nontender, bowel sounds are very weak. No rebound or guarding. Extremities trace edema. No cyanosis or calf tenderness bilaterally Neuro examination is nonfocal. Eyes PERRL, extraocular muscles are intact. Data Labs: Other Labs: Laboratory Results WBC 12.4 10^3/uL (4.0 -10.0) H 10/26/20 17:25 RBC 5.14 10^6/uL (4.1 -5.3) 10/26/20 17:25 Hgb 15.1 g/dL (11.7-1 6.6) 10/26/20 17:25 Hct 45.5 % (42.0-52.0 ) 10/26/20 17:25 MCV 88.5 fL (80-94) 10/26/20 17:25 MCH 29.4 pg (28.0-34. 0) 10/26/20 17:25 MCHC 33.2 g/dL (30.0-3 6.0) 10/26/20 17:25 RDW 13.4 % (12.1-15.1 ) 10/26/20 17:25 Plt Count 251 10^3/cmm (130 -400) 10/26/20 17:25 MPV 10.2 fL (7.4-10.4 ) 10/26/20 17:25 Neut % (Auto) 78.7 % 10/26/20 17:25 Lymph % (Auto) 6.9 % 10/26/20 17:25 Pierce % (Auto) 12.2 % 10/26/20 17:25 Eos % (Auto) 1.6 % 10/26/20 17:25 Baso % (Auto) 0.3 % 10/26/20 17:25 Neut # (Auto) 9.77 10^3/uL (1.8 -7.7) H 10/26/20 17:25 Lymph # (Auto) 0.9 10^3/uL (0.8- 4.8) 10/26/20 17:25 Pierce # (Auto) 1.5 10^3/uL (0.2- 0.9) H 10/26/20 17:25 Eos # (Auto) 0.2 10^3/uL (0.0- 0.8) 10/26/20 17:25 Baso # (Auto) 0.0 10^3/uL (0.0- 0.1) 10/26/20 17:25 Nucleated RBC % (a uto) 0 % 10/26/20 17:25 Nucleated RBCs # 0.0 /100WBC 10/26/20 17:25 Sodium 136 mmol/L (136-1 45) 10/26/20 17:25 Potassium 4.3 mmol/L (3.5-5 .1) 10/26/20 17:25 Chloride 99 mmol/L (98-107 ) 10/26/20 17:25 Carbon Dioxide 28 mmol/L (22-29) 10/26/20 17:25 Anion Gap 13.3 (5-19) 10/26/20 17:25 BUN 26 mg/dL (8-23) H 10/26/20 17:25 Creatinine 0.6 mg/dL (0.7-1. 2) L 10/26/20 17:25 GFR Calculation 133.2 mL/min (90- 130) H 10/26/20 17:25 Glucose 115 mg/dL (65-115 ) 10/26/20 17:25 Calculated Osmolal ity 288 mOsm/kg (285- 295) 10/26/20 17:25 Lactate 1.4 mmol/L (0.5-2 .2) 10/26/20 17:25 Calcium 8.6 mg/dL (8.5-10 .5) 10/26/20 17:25 Total Bilirubin 1.2 mg/dL (0.15-1 .2) 10/26/20 17:25 AST 18 U/L (0-40) 10/26/20 17:25 ALT 16 U/L (0-41) 10/26/20 17:25 Alkaline Phosphata se 51 IU/L (40-130) 10/26/20 17:25 Troponin T Baselin e 17 ng/L (0-15) H 10/26/20 17:25 Troponin T 120 Min [place] 15.98 ng/L (0-15) H 10/26/20 19:38 Delta Troponin T -1.02 ABS# (0-10) L 10/26/20 19:38 NT-Pro-B Natriuret Pep 1209 pg/mL (0-125 ) H 10/26/20 17:25 Total Protein 6.1 g/dL (6.6-8.7 ) L 10/26/20 17:25 Albumin 3.6 g/dL (3.5-5.2 ) 10/26/20 17:25 Globulin 2.5 g/dL (1.3-4.6 ) 10/26/20 17:25 Lipase 23 U/L (13-60) 10/26/20 17:25 Impressions Abdomen/Pelvis CT 10/26/20 18:57 IMPRESSION: Nonspecific dilated small bowel loops with scattered air-fluid levels most likely representing ileus pattern. Radiation Dose CTDIVOL = (mGy): DLP = 1697.96 (mGy-cm) A&P Additional A&P Information 70-year-old male with past medical history of atrial fibrillation, hypertension, seizures, COPD, and recent laparoscopic hernia repair who is presenting with complaints of generalized weakness, nausea, decreased oral intake, abdominal distention. The patient has ileus. He is also found to have A. fib with RVR which responded quickly to IV fluids and IV diltiazem. BNP is elevated. Troponin is mildly elevated. No chest pain. Hospitalist service was kindly asked by Dr. Wan to manage medical conditions during this hospitalization. Ileus. Management per Dr. Wna. Bowel rest and hydration. We will monitor and replace electrolytes. A. fib with RVR. Responded well to IV fluids and IV diltiazem. Currently rate controlled. Will hold Eliquis and start him on Lovenox full dose subcu. Last dose of Eliquis was this morning. Also will give him metoprolol IV while he is n.p.o. We will monitor him on telemetry. Mildly abnormal troponin probably due to A. fib with RVR. No evidence of acute coronary syndrome. We will recheck his troponin in the morning. Elevated BNP probably due to RVR. No evidence of CHF at this time. We will closely monitor hydration status and try to avoid fluid overload. COPD. No evidence of bronchospasm at this time. We will continue his home medications. Hypertension. Well-controlled. DVT prophylaxis. He is on full anticoagulation. CODE STATUS. He wants to be full code. The plan of care was discussed with the patient and his family at the bedside. They verbalized understanding and agreement Thank you very much for allowing us to participate in treatment of this patient. 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
[2020-10-26 21:19] LABS: Add Urine Microscopic? NO; Charge for UA Resulting for Rev
--- NOTE | 2020-10-26 21:34 | XRR_ITS ---
PROCEDURE INFORMATION: Exam: XR Chest Exam date and time: 10/26/2020 9:37 PM Age: 70 years old Clinical indication: Device placement; Ng tube; Additional info: Ngt placement TECHNIQUE: Imaging protocol: XR of the chest. Views: 1 view. COMPARISON: No relevant prior studies available. FINDINGS: Tubes, catheters and devices: NG tube in the proximal stomach. Lungs: Unremarkable. No consolidation. Pleural spaces: Unremarkable. No pleural effusion. No pneumothorax. Heart/Mediastinum: Unremarkable. No cardiomegaly. Bones/joints: Unremarkable. XR/XR chest 1V portable [id number] IMPRESSION: NG tube in the gastric fundus. Distal side hole near GE junction. Recommend advancement of additional 10 cm.
[2020-10-26 21:44] LABS: Specific Gravity, Urine 1.005 (1.005-1.030); Urine Appearance Clear (CLEAR); Urine Color Dark Yellow (Yellow); pH Urine 6.5 (5-7)
[2020-10-26 21:45] LABS: Bilirubin Urine Neg (Negative); Blood Urine Neg (Negative); Glucose Urine UA Norm (Normal); Ketones Urine Negative (Negative); Leukocyte Esterase Urine Negative (Negative); Nitrate Urine Negative (Negative); Protein Urine Neg (Negative); Urobilinogen Urine 1 mg/dL (Negative)
[2020-10-26] MEDS: albuterol 8 gm MDI 1 PUFF INHALATION (23:06)
[2020-10-26] MEDS: metoprolol tartrate 1 mg/1 mL SDV 5 mL 2.5 MG IV (23:12)
[2020-10-26] MEDS: sodium chloride 0.9% 1,000 ML 75 ML IV (23:14)
[2020-10-26] MEDS: enoxaparin 80 mg/0.8 mL Syringe SUBCUT (23:14)
[2020-10-26 23:29] LABS: Troponin 5 6HR 13.17 ng/L (0-15)
[2020-10-26 23:31] LABS: Troponin 5 6HR Delta -3.83 ng/L (0-12)
--- NOTE | 2020-10-26 23:37 | ECG_ITS ---
[facility] ED Test Date: 2020-10-26 Pat Name: Kimo Hernandez Department: Room: 252 Gender: Male Data Entry Specialist: : 1950 Requested By: Rosey Cooper Order Number: [id number] Ben MD: Samina Brewster M.D. Measurements Intervals [place] Rate: 74 P: 60 [place]: 186 QRS: 57 QRSD: 104 T: 61 QT: 443 QTc: 494 Interpretive Statements SINUS RHYTHM WITH FREQUENT VENTRICULAR PREMATURE COMPLEXES WITH OCCASIONAL SUPRAVENTRICULAR PREMATURE COMPLEXES PROLONGED QT INTERVAL Compared to ECG 10/26/2020 20:51:42 Ventricular premature complex(es) now present Electronically Signed On 11-03-2020 21:35:06 CDT by Samina Brewster M.D. [id number]
[2020-10-27] VITALS (15 sets, daily range): BP systolic 120–144; BP diastolic 63–94; PULSE 78–118; RESP 16–20; TEMP 36.4–36.9; O2SAT 94–98
[2020-10-27] MEDS: metoprolol tartrate 1 mg/1 mL SDV 5 mL 2.5 MG IV ×2 (05:23→11:11)
[2020-10-27 06:19] LABS: Basophils % 0.4 %; Eosinophils # 0.4 10^3/uL (0.0-0.8); Eosinophils % 4.3 %; Hematocrit 41.8 % (42.0-52.0); Hemoglobin 13.4 g/dL (11.7-16.6); Lymphocytes # 0.8 10^3/uL (0.8-4.8); Lymphocytes % 7.9 %; Mean Corpuscular HGB Conc 32.1 g/dL (30.0-36.0); Mean Corpuscular Hemoglobin 29.6 pg (28.0-34.0); Mean Corpuscular Volume 92.5 fL (80-94); Mean Platelet Volume 10.2 fL (7.4-10.4); Monocytes # 1.3 10^3/uL (0.2-0.9); Monocytes % 12.9 %; Neutrophils # 7.17 10^3/uL (1.8-7.7); Nucleated Red Blood Cells % 0 %; Platelet Count 217 10^3/cmm (130-400); Red Blood Count 4.52 10^6/uL (4.1-5.3); Red Cell Distribution Width 13.9 % (12.1-15.1); White Blood Count 9.7 10^3/uL (4.0-10.0)
[2020-10-27 06:43] LABS: Alanine Aminotransferase 16 U/L (0-41); Alkaline Phosphatase 44 IU/L (40-130); Anion Gap 9.1 (5-19); Aspartate Amino Transferase 17 U/L (0-40); Blood Urea Nitrogen 23 mg/dL (8-23); Calcium 7.8 mg/dL (8.5-10.5); Carbon Dioxide 31 mmol/L (22-29); Chloride 100 mmol/L (98-107); Creatinine Clr Calc Pharmacy 93.3596; Globulin 2.1 g/dL (1.3-4.6); Glomerular Filtration Rate 111.5 mL/min (90-130); Glucose 90 mg/dL (65-115); Osmolality Calculated 285 mOsm/kg (285-295); Potassium 4.1 mmol/L (3.5-5.1); Sodium 136 mmol/L (136-145); Total Bilirubin 1.4 mg/dL (0.15-1.2); Total Protein 5.1 g/dL (6.6-8.7)
[2020-10-27 06:46] LABS: Troponin T (5th) Once 14 ng/L (0-15)
[2020-10-27 06:48] LABS: NT Pro B Type Natriuretic Pept 803 pg/mL (0-125)
[2020-10-27] MEDS: albuterol 8 gm MDI 1 PUFF INHALATION ×4 (07:49→20:20)
[2020-10-27] MEDS: levETIRAcetam 500 mg Tablet PO ×2 (09:23→20:21)
--- NOTE | 2020-10-27 10:11 | PC.CHAP ---
Pastoral Care Encounter/Spiritual Assessment Type of Contact [] Declined process engineering technician visit [] Patient/Family/Request visit [] Outpatient visit [] Follow-up visit [] Physician referral [] Code/Alert [x] Routine visit [] Staff referral [] Actively dying [] Patient sleeping [] Family support [] [] Out of room [] Palliative care [] [] Receiving care in room [] Pre-surgical visit [] Trauma [] Long length of stay [] ICU visit [] Other: Relational/Emotional Strength [x] Patient feels connected with others/family/visitors/staff [] Distress [] Loneliness/isolation [] Abandonment Spirituality of Patient [x] Person of Jessie [x] Attends Anglican of their Jessie [x] Believes in Prayer [x] Reads Bible or Islam materials [] There are Spiritual issues to be addressed Flight Operations Coordinator Interventions [x] Prayer [x] Active listening [x] Non-anxious presence [x] Spiritual/emotional support [] Crisis/trauma care [] Spiritual counseling [] Bereavement support [] Provided bereavement packet [] Provided Bible/devotional materials [] Provided toy/stuffed animal, coloring book to patient or family member [] Provided Communion [] Anointing/[place] [] Salvation [x] Completed spiritual assessment [] Other: Impact on Illness or Injury [] Angry [] Fearful [] Anxious [] Often cries [] Exhaustion [] Unable to work [] Unable to attend anabaptist [] Unable to walk/stand [] Unable to read [] Unable to drive [] Unable to eat/drink [] Unable to sleep [] Unable to be with family [] Patient intubated [] Other: Summary patient feeling much better Time spent with patient 15 min
[2020-10-27] MEDS: sodium chloride 0.9% 1,000 ML 75 ML IV (11:11)
--- NOTE | 2020-10-27 15:03 | PM.HP ---
Providers/Chief Complaint Admitting Physician: Dewey Wan MD Chief Complaint: bloating, post surgery () History of Present Illness Kimo Hernandez is a 70 year old male who had undergone laparoscopic repair of incisional hernia with mesh on 10/21/2020. Patient subsequently discharged on 10/22/2020 since he was admitted overnight for pain control and hypoxia. Patient was seen at the [facility] on 10/25/2020 due to abdominal distention and an episode of emesis. Patient was given a laxative and subsequently discharged home. Yesterday patient presented to the ER with persistent abdominal distention, nausea. He denies any significant pain. He has been passing flatus but no significant BMs. He has not been able to eat for the last 4 to 5 days and has been weak. Denies any fevers or chills. Review of Systems General: Reports: 10 or more systems reviewed and unremarkable except in HPI and below Medications/Allergies Home Medications Medication Instructions Recorded Confirmed Last Taken Type albuterol sulfate 90 mcg/actuation 1 inh INHALATION QID 10/09/20 10/26/20 10/25/20 History aerosol inhaler apixaban 5 mg tablet 5 mg PO BID@0800,199910/09/20 10/26/20 10/26/20 History dofetilide 500 mcg capsule 500 mcg PO Q12H 10/09/20 10/26/20 10/26/20 History levetiracetam 500 mg tablet 500 mg PO BID@0800,199910/09/20 10/26/20 10/26/20 History metoprolol tartrate 25 mg tablet 25 mg PO BID@0800,199910/09/20 10/26/20 10/26/20 History tiotropium bromide 18 mcg capsule 1 cap INHALATION DAILY@0800 10/09/20 10/26/20 10/26/20 History with inhalation device hydrocodone-acetaminophen 1 tab PO Q6H PRN #20 tab 10/21/20 10/26/20 Unknown Rx ondansetron HCl [Zofran] 4 mg PO Q6H PRN #20 tab 10/21/20 10/26/20 Unknown Rx Vitamin D3 1 tab PO DAILY@0800 10/26/20 10/26/20 10/25/20 History budesonide-formoterol [Symbicort] 2 puff INHALATION Q12H 10/26/20 10/26/20 10/26/20 History docusate sodium [Colace] 100 mg PO BID@0800,199910/26/20 10/26/20 10/26/20 History Allergies Allergy/AdvReac Type Severity Reaction Status Date / Time No Known Allergies Allergy Verified 10/26/20 15:52 PFSH Acute PFSH: Medical History A-fib COPD (chronic obstructive pulmonary disease) Hypertension Sleep apnea in adult Surgical History History of AAA (abdominal aortic aneurysm) repair 2009 History of colonoscopy with polypectomy 2018 History of left inguinal hernia repair 2016 History of vascular surgery rt and left leg 2019 S/P hernia repair incisional Family History Denies family history of Anesthesia complication Bleeding disorder Social History Smoking and tobacco status: current every day smoker cigarettes and cigars Vitals/I&O/Wt Last Vital Signs Temp 98.2 F 10/27/20 11:32 Pulse 99 10/27/20 11:32 Resp 18 10/27/20 11:32 BP 124/63 10/27/20 11:32 Pulse Ox 98 10/27/20 11:32 10/27/20 10/27/20 10/27/20 06:59 14:59 22:59 Intake Total 250 / 1250 896.25 / 896.25 Balance 250 / 1250 896.25 / 896.25 Weight last 48 hrs Weight 182 lb Physical Exam Narrative: EXAM NARRATIVE: HEENT: Normocephalic, NG to LIS Eye: Sclera /conjunctiva normal Respiratory and chest: Bilateral clear breath sounds on auscultation Cardiovascular: Normal S1 and S2 heart sounds Abdomen: Soft to palpation, distended, incisions healing well, mildly tender Neurological: Oriented to place person and time Skin: Intact, no lesions appreciated on gross exam Data : 10/27/20 05:35 10/27/20 05:35 A&P Assessment and plan (1) Postoperative ileus: 70-year-old male who presents 5 days after laparoscopic incisional hernia repair with abdominal distention. Patient is hemodynamically stable with no evidence of peritonitis. His WBC was 9.[address] abdomen pelvis showed distended small bowel loops with moderate amount of stools within the right colon. Patient was noted to have elevated troponin and is undergoing cardiac work-up NG tube to low insertion Lovenox at therapeutic dose for atrial fibrillation, hold Eliquis Pepcid for GI prophylaxis Abdominal series in the morning IV fluids Appreciate input from Dr. Victor Daily CBC and BMP Okay to have ice chips Status: Acute Attestations Medical Necessity Statement*: Patient related in 2 nights of inpatient stay to ensure resolution of obstruction/ileus Coding Level of Care Code Acute Radiocommunications Technician for [facility] Diagnoses Postoperative ileus K91.89; K56.7
--- NOTE | 2020-10-27 17:27 | PM.PN ---
Subjective Subjective: Interval history: Overnight labs and H&P reviewed. Heart rate 96-111 this morning. Patient reports feeling asymptomatic. Medications: Reviewed: Yes Vitals/I&O/Wt Last Vital Signs Temp 97.7 F 10/27/20 16:00 Pulse 104 H 10/27/20 16:00 Resp 18 10/27/20 16:00 BP 130/86 10/27/20 16:00 Pulse Ox 98 10/27/20 16:00 10/27/20 10/27/20 10/27/20 06:59 14:59 22:59 Intake Total 250 / 1250 896.25 / 896.25 Balance 250 / 1250 896.25 / 896.25 Weight last 48 hrs Weight 82.554 kg Physical Exam Narrative: EXAM NARRATIVE: GEN: Awake, alert and oriented, no acute distress HEENT: NGT in place to suction CVS: S1S2 N RS: CTA B/L Abd: Soft, nt/nd , bs+ DATA WAREHOUSING SPECIALIST: no focal neuro deficits Data : 10/27/20 05:35 10/27/20 05:35 A&P Additional A&P Information 70-year-old male with past medical history of atrial fibrillation, hypertension, seizures, COPD, and recent laparoscopic hernia repair who is presenting with complaints of generalized weakness, nausea, decreased oral intake, abdominal distention. The patient has ileus. Ileus. Management per Dr. Wan. Bowel rest and hydration. We will monitor and replace electrolytes.NGT to suction. A. fib with RVR. HR ranging 90--10. Increase metoprolol to 5mg iv q4h a/c changed from eliquis to full dose lovenox in case any surgical procedures are needed Mildly abnormal troponin probably due to A. fib with RVR. No evidence of acute coronary syndrome. Elevated BNP probably due to RVR. No evidence of CHF at this time. Clinically euvolemic. No recent echo on chart COPD. No evidence of bronchospasm at this time. We will continue his home medications. Hypertension. Well-controlled. DVT prophylaxis. He is on full anticoagulation. CODE STATUS. full code. 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
[2020-10-27] MEDS: metoprolol tartrate 1 mg/1 mL SDV 5 mL 5 MG IV ×2 (18:10→23:57)
[2020-10-27] MEDS: enoxaparin 80 mg/0.8 mL Syringe SUBCUT (18:10)
[2020-10-27] MEDS: magnesium citrate Btl 296 mL PO (20:21)
[2020-10-28] VITALS (15 sets, daily range): BP systolic 103–135; BP diastolic 52–92; PULSE 68–102; RESP 15–18; TEMP 36.4–36.8; O2SAT 91–98
[2020-10-28] MEDS: sodium chloride 0.9% 1,000 ML 75 ML IV ×2 (00:02→14:21)
[2020-10-28] MEDS: metoprolol tartrate 1 mg/1 mL SDV 5 mL 5 MG IV ×5 (05:00→21:29)
--- NOTE | 2020-10-28 06:00 | XR_ITS ---
WS: [id number] Abdomen series, Flat and upright 10/28/2020 Clinical Data: sbo Comparison: Acute abdomen series, 10/26/2020. Findings: No free air is seen beneath the diaphragms. There are multiple air-fluid levels throughout the small bowel unchanged. The small bowel loops are dilated. There is a nasogastric tube which appea rs to be curled in the fundus. There is an endovascular stent graft extending from the mid abdominal aorta into the iliac arteries. There are clips in the left inguinal region from surgery. XR/XR abdomen min 2V [id number] Impression: 1. Multiple air-fluid levels and dilated small bowel consistent with small ty l obstruction. 2. Endovascular stent graft unchanged.
[2020-10-28 06:17] LABS: Basophils % 0.4 %; Eosinophils # 0.2 10^3/uL (0.0-0.8); Eosinophils % 2.4 %; Hematocrit 42.8 % (42.0-52.0); Hemoglobin 13.7 g/dL (11.7-16.6); Lymphocytes # 0.7 10^3/uL (0.8-4.8); Lymphocytes % 8.6 %; Mean Corpuscular Volume 90.7 fL (80-94); Mean Platelet Volume 10.6 fL (7.4-10.4); Monocytes % 13.1 %; Neutrophils # 5.97 10^3/uL (1.8-7.7); Neutrophils % 75.2 %; Nucleated Red Blood Cells % 0 %; Platelet Count 234 10^3/cmm (130-400); Red Blood Count 4.72 10^6/uL (4.1-5.3); Red Cell Distribution Width 13.5 % (12.1-15.1); White Blood Count 7.9 10^3/uL (4.0-10.0)
[2020-10-28 06:37] LABS: Anion Gap 13.1 (5-19); Blood Urea Nitrogen 23 mg/dL (8-23); Calcium 7.7 mg/dL (8.5-10.5); Carbon Dioxide 25 mmol/L (22-29); Chloride 100 mmol/L (98-107); Glomerular Filtration Rate 133.2 mL/min (90-130); Glucose 81 mg/dL (65-115); Osmolality Calculated 281 mOsm/kg (285-295); Potassium 4.1 mmol/L (3.5-5.1); Sodium 134 mmol/L (136-145)
[2020-10-28 06:38] LABS: Creatinine Clr Calc Pharmacy 93.3596
[2020-10-28] MEDS: enoxaparin 80 mg/0.8 mL Syringe SUBCUT ×2 (07:27→18:34)
[2020-10-28] MEDS: albuterol 8 gm MDI 1 PUFF INHALATION ×3 (07:41→19:48)
--- NOTE | 2020-10-28 09:56 | PM.PN ---
Subjective Subjective: Interval history: He has had 4 bowel movements so far all loose, denies any nausea or vomiting. No abdominal pain Vitals/I&O/Wt Last Vital Signs Temp 97.5 F L 10/28/20 08:00 Pulse 98 10/28/20 08:00 Resp 18 10/28/20 08:00 BP 119/80 10/28/20 08:00 Pulse Ox 96 10/28/20 08:00 10/27/20 10/28/20 10/28/20 22:59 06:59 14:59 Intake Total 300 / 2160.00 963.75 / 2160.00 240 / 240 Output Total 300 / 1000 650 / 1000 Balance 0 / 1160.00 313.75 / 1160.00 240 / 240 Weight last 48 hrs Weight 182 lb Physical Exam Narrative: EXAM NARRATIVE: Abdomen: Soft, nondistended, minimally tender incisions healing well Data : 10/28/20 05:40 10/28/20 05:40 A&P Assessment and plan (1) Postoperative ileus: 70-year-old male who presents 5 days after laparoscopic incisional hernia repair with abdominal distention. Patient is hemodynamically stable with no evidence of peritonitis. His WBC was 9.[address] abdomen pelvis showed distended small bowel loops with moderate amount of stools within the right colon. Patient was noted to have elevated troponin and is undergoing cardiac work-up Clamp NG tube, start clear liquid diet Lovenox at therapeutic dose for atrial fibrillation, hold Eliquis Pepcid for GI prophylaxis Abdominal series in the morning IV fluids Appreciate input from Dr. Victor Daily CBC and BMP Status: Acute Attestations Medical Necessity Statement*: Postop ileus requiring continued inpatient stay to ensure resolution Coding Level of Care Code Acute Dispatcher Service for [facility] Diagnoses Postoperative ileus K91.89; K56.7
[2020-10-28] MEDS: levETIRAcetam 500 mg Tablet PO (10:17)
--- NOTE | 2020-10-28 10:22 | PC.CHAP ---
Pastoral Care Encounter/Spiritual Assessment Type of Contact [] Declined coke still cleaner visit [] Patient/Family/Request visit [] Outpatient visit [] Follow-up visit [] Physician referral [] Code/Alert [x] Routine visit [] Staff referral [] Actively dying [] Patient sleeping [] Family support [] [] Out of room [] Palliative care [] [] Receiving care in room [] Pre-surgical visit [] Trauma [] Long length of stay [] ICU visit [] Other: Relational/Emotional Strength [x] Patient feels connected with others/family/visitors/staff [] Distress [] Loneliness/isolation [] Abandonment Spirituality of Patient xx[x] Person of Jessie [x] Attends Adventism of their Jessie [x] Believes in Prayer [] Reads Bible or Alevism materials [] There are Spiritual issues to be addressed Staffing Specialist Interventions [x] Prayer [x] Active listening [x] Non-anxious presence [x] Spiritual/emotional support [] Crisis/trauma care [] Spiritual counseling [] Bereavement support [] Provided bereavement packet [] Provided Bible/devotional materials [] Provided toy/stuffed animal, coloring book to patient or family member [] Provided Communion [] Anointing/[place] [] Salvation [] Completed spiritual assessment [] Other: Impact on Illness or Injury [] Angry [] Fearful [] Anxious [] Often cries [] Exhaustion [] Unable to work [] Unable to attend restorationist [] Unable to walk/stand [] Unable to read [] Unable to drive [] Unable to eat/drink [] Unable to sleep [] Unable to be with family [] Patient intubated [] Other: Summary Time spent with patient 20 min
--- NOTE | 2020-10-28 18:09 | PM.PN ---
Subjective Subjective: Interval history: No new complaints today. Intermittent heart rate up to 150s, patient reports shortness of breath during episodes of high heart rate. Denies any chest pain. Has had multiple bowel movements at this time, no vomiting, currently on trial of clear liquid diet with possibility of removing NGT later today Medications: Reviewed: Yes Vitals/I&O/Wt Last Vital Signs Temp 97.7 F 10/28/20 16:00 Pulse 100 10/28/20 16:00 Resp 18 10/28/20 16:00 BP 135/92 10/28/20 16:00 Pulse Ox 91 10/28/20 16:00 10/28/20 10/28/20 10/28/20 06:59 14:59 22:59 Intake Total 963.75 / 2160.00 1600 / 1600 Output Total 650 / 1000 850 / 850 Balance 313.75 / 1160.00 750 / 750 Physical Exam Narrative: EXAM NARRATIVE: GEN: Awake, alert and oriented, no acute distress HEENT: NGT in place to suction CVS: S1S2 N RS: CTA B/L Abd: Soft, nt/nd , bs+ REJECTED ITEMS CLERK: no focal neuro deficits Data : 10/28/20 05:40 10/28/20 05:40 A&P Additional A&P Information 70-year-old male with past medical history of atrial fibrillation, hypertension, seizures, COPD, and recent laparoscopic hernia repair who is presenting with complaints of generalized weakness, nausea, decreased oral intake, abdominal distention. The patient has ileus. Ileus. Management per Dr. Wan. Bowel rest and hydration. We will monitor and replace electrolytes.NGT to suction. A. fib with RVR. HR ranging 90--110. Intermittent increase to 150-160. Resume home dose ofpo metoprolol at 25BID, continue iv overlap a/c changed from Eliquis to full dose lovenox in case any surgical procedures are needed Mildly abnormal troponin probably due to A. fib with RVR. No evidence of acute coronary syndrome. Elevated BNP probably due to RVR. No evidence of CHF at this time. Clinically euvolemic. No recent echo on chart COPD. No evidence of bronchospasm at this time. We will continue his home medications. Hypertension. Well-controlled. DVT prophylaxis. He is on full anticoagulation. CODE STATUS. full code. 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
[2020-10-28] MEDS: metoprolol tartrate 25 mg Tablet PO (21:28)
[2020-10-29] VITALS (10 sets, daily range): BP systolic 111–122; BP diastolic 74–84; PULSE 90–107; RESP 17–18; TEMP 36.4–37; O2SAT 92–96
[2020-10-29] MEDS: metoprolol tartrate 1 mg/1 mL SDV 5 mL 5 MG IV ×4 (01:15→13:18)
[2020-10-29] MEDS: sodium chloride 0.9% 1,000 ML 75 ML IV (01:50)
[2020-10-29 05:08] LABS: Basophils % 0.3 %; Eosinophils # 0.3 10^3/uL (0.0-0.8); Eosinophils % 3.7 %; Hemoglobin 13.2 g/dL (11.7-16.6); Lymphocytes # 0.6 10^3/uL (0.8-4.8); Mean Corpuscular Hemoglobin 29.5 pg (28.0-34.0); Mean Corpuscular Volume 89.5 fL (80-94); Mean Platelet Volume 10.4 fL (7.4-10.4); Monocytes # 1.1 10^3/uL (0.2-0.9); Monocytes % 12.2 %; Neutrophils # 6.61 10^3/uL (1.8-7.7); Neutrophils % 76.6 %; Nucleated Red Blood Cells % 0 %; Platelet Count 227 10^3/cmm (130-400); Red Blood Count 4.47 10^6/uL (4.1-5.3); Red Cell Distribution Width 13.4 % (12.1-15.1); White Blood Count 8.6 10^3/uL (4.0-10.0)
[2020-10-29 05:27] LABS: Anion Gap 12.8 (5-19); Blood Urea Nitrogen 17 mg/dL (8-23); Calcium 7.5 mg/dL (8.5-10.5); Carbon Dioxide 25 mmol/L (22-29); Chloride 98 mmol/L (98-107); Glomerular Filtration Rate 212.7 mL/min (90-130); Glucose 78 mg/dL (65-115); Osmolality Calculated 274 mOsm/kg (285-295); Potassium 3.8 mmol/L (3.5-5.1); Sodium 132 mmol/L (136-145)
[2020-10-29 05:33] LABS: Magnesium 1.9 mg/dL (1.7-2.3)
[2020-10-29 05:34] LABS: Creatinine Clr Calc Pharmacy 93.3596
[2020-10-29] MEDS: enoxaparin 80 mg/0.8 mL Syringe SUBCUT (06:10)
[2020-10-29] MEDS: albuterol 8 gm MDI 1 PUFF INHALATION ×2 (07:50→11:27)
[2020-10-29] MEDS: metoprolol tartrate 25 mg Tablet PO (08:59)
[2020-10-29] MEDS: levETIRAcetam 500 mg Tablet PO (08:59)
--- NOTE | 2020-10-29 09:25 | PC.SOCIAL ---
Pg 2 IMM. Explained to pt Pg 2 IMM. No questions voiced. Signed, dated, & timed a copy & placed in chart.
--- NOTE | 2020-10-29 10:02 | P.PN_ITS ---
Subjective Subjective: Interval history: Patient denies any abdominal pain, nausea or vomiting with NG tube clamped yesterday, tolerating clear liquid diet Vitals/I&O/Wt Last Vital Signs Temp 97.7 F 10/29/20 07:54 Pulse 90 10/29/20 07:54 Resp 18 10/29/20 07:54 BP 122/84 10/29/20 07:54 Pulse Ox 95 10/29/20 07:54 10/28/20 10/29/20 10/29/20 22:59 06:59 14:59 Intake Total 240 / 2701.25 861.25 / 2701.25 300 / 300 Output Total 0 / 850 Balance 240 / 1851.25 861.25 / 1851.25 300 / 300 Physical Exam Narrative: EXAM NARRATIVE: Abdomen: Soft, nondistended, nontender Data : 10/29/20 04:34 10/29/20 04:34 A&P Assessment and plan (1) Postoperative ileus: 70-year-old male who presents 5 days after laparoscopic incisional hernia repair with abdominal distention. Patient is hemodynamically stable with no evidence of peritonitis. His WBC was 9.[address] abdomen pelvis showed distended small bowel loops with moderate amount of stools within the right colon. Patient was noted to have elevated troponin and is undergoing cardiac work-up Lovenox at therapeutic dose for atrial fibrillation Pepcid for GI prophylaxis Abdominal series in the morning IV fluids Appreciate input from Dr. Victor Advance to full liquid diet, if tolerating he could potentially go home later today. He can restart his Eliquis. 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
--- NOTE | 2020-10-29 10:06 | P.DS_ITS ---
Discharge Providers Date of Admission: 10/26/20 20:25 Date of Discharge: October 29, 2020 Attending Provider at Admission: Dewey Wan MD Attending Provider at Discharge: Dewey Wan MD Diagnoses at Discharge Discharge Diagnosis (1) Postoperative ileus: Status: Acute Reason for Visit Reason for Visit: bloating, post surgery () Hospital Course Hospital Course Kimo Hernandez is a 70 year old male who had undergone laparoscopic repair of incisional hernia with mesh on 10/21/2020. Patient subsequently discharged on 10/22/2020 since he was admitted overnight for pain control and hypoxia. Patient was seen at the [facility] on 10/25/2020 due to abdominal distention and an episode of emesis. Patient was given a laxative and subsequently discharged home. Yesterday patient presented to the ER with persistent abdominal distention, nausea. He denies any significant pain. He has been passing flatus but no significant BMs. He has not been able to eat for the last 4 to 5 days and has been weak. Denies any fevers or chills. Patient had an NG tube placed and put on bowel rest for postoperative ileus. The following day patient was given a bottle of magnesium citrate and he had multiple loose bowel movement and his abdominal distention resolved. His NG tube was removed and at time of discharge he was tolerating full liquid diet, his abdominal distention had resolved, his vital signs are stable and he is having multiple bowel movements. T Discharge Data Data Completed and Pending: Completed Studies During Hospitalization Category Date Time Status CT abdomen pelvis w con* [id number] Urge nt Cat Scan 10/26/20 18:57 Completed XR abdomen min 2V [id number] Routine Exams 10/28/20 06:00 Completed XR acute abdomen series [id number] Stat Exams 10/26/20 17:36 Completed XR chest 1V reese ble [id number] Routine Exams 10/26/20 21:34 Completed Pending at discharge Category Date Time Status Basic Metabolic P christy AM LABS Lab 10/30/20 04:00 Ordered Complete Blood Co unt w/Auto AM LABS Lab 10/30/20 04:00 Ordered Labs from last 24 hours 10/29/20 10/29/20 10/29/20 04:34 04:34 04:34 WBC 8.6 RBC 4.47 Hgb 13.2 Hct 40.0 L MCV 89.5 MCH 29.5 MCHC 33.0 RDW 13.4 Plt Count 227 MPV 10.4 Neut % (Auto) 76.6 Lymph % (Auto) 7.0 Mcpherson % (Auto) 12.2 Eos % (Auto) 3.7 Baso % (Auto) 0.3 Neut # (Auto) 6.61 Lymph # (Auto) 0.6 L Mcpherson # (Auto) 1.1 H Eos # (Auto) 0.3 Baso # (Auto) 0.0 Nucleated RBC % (a uto) 0 Nucleated RBCs # 0.0 Sodium 132 L Potassium 3.8 Chloride 98 Carbon Dioxide 25 Anion Gap 12.8 BUN 17 Creatinine 0.4 L GFR Calculation 212.7 H Glucose 78 Calculated Osmolal ity 274 L Calcium 7.5 L Magnesium 1.9 Vitals: Last Vital Signs Temp 97.7 F 10/29/20 07:54 Pulse 90 10/29/20 07:54 Resp 18 10/29/20 07:54 BP 122/84 10/29/20 07:54 Pulse Ox 95 10/29/20 07:54 Discharge Plan Discharge Patient Disposition: Home Condition: Stable Prescriptions: New Senna with Docusate Sodium 8.6-50 mg tablet 1 tab-cap PO BID Qty: 30 RF: 0 lactulose 10 gram/15 mL solution 15 ml PO BID Qty: 237 RF: 2 Continued apixaban 5 mg tablet 5 mg PO BID@799,1999 RF: 0 dofetilide 500 mcg capsule 500 mcg PO Q12H RF: 0 levetiracetam 500 mg tablet 500 mg PO BID@ RF: 0 tiotropium bromide 18 mcg capsule, w/inhalation device 1 cap inhalation DAILY@799 RF: 0 metoprolol tartrate 25 mg tablet 25 mg PO BID@ RF: 0 albuterol sulfate [ProAir HFA] 90 mcg/actuation HFA aerosol inhaler 1 inh inhalation QID RF: 0 Symbicort 160-4.5 mcg/actuation Hfa Aerosol Inhaler 2 puff INHALATION Q12H RF: 0 Vitamin D3 1 tab PO DAILY@0800 RF: 0 hydrocodone-acetaminophen 5-325 mg tablet 1 tab PO Q6H PRN (Reason: pain) Qty: 20 RF: 0 ondansetron HCl [Zofran] 4 mg tablet 4 mg PO Q6H PRN (Reason: nausea and vomiting) Qty: 20 RF: 0 Discontinued docusate sodium [Colace] 100 mg capsule 100 mg PO BID@0800,2000 RF: 0 Discharge Orders: Discharge Order (Routine); Ordered 10/29/20 Ordered By: Dewey Wan Referrals: Dewey Wan MD [Physician] - 11/13/20 10:50 am (change to the new date from previous appt) Patient Instructions: Laxative, Stool Softeners (By mouth), Lactulose (By mouth), Ileus (GEN), Opioid Safety Activity Restrictions/Additional Instructions: Diet Advance to normal diet as tolerated, increase fluid intake as much as possible. Activity Avoid strenuous activity for 2 weeks but continue with daily activities including walking as tolerated. Do not lift more than 10 pounds for 2 weeks Return to work/school You can return to work/ school whenever you feel ready as long as you don?t have to lift more than 10 pounds at work. If you have paperwork that needs to be completed for time off from work, please contact my office Driving You can resume driving once you stop using narcotic pain medications, and transition to non-opioid pain medications like Tylenol, Motrin, Aleve, etc. Medications Pain Take opioid pain medications as prescribed and transition to non-opioid pain medications like Tylenol, Motrin, Aleve etc. over the next few days. The goal of the pain medications is to make the pain bearable and not to be pain free since you recently had surgery. Resume all home medications after surgery as per the medication reconciliation list Nausea Nausea is common after surgery, take nausea medications as needed and stay on a liquid bland diet until nausea resolves. Constipation Adjust the dose of stool softener and laxative that I have prescribed to have couple of soft to loose bowel movements a day. Shower It is ok to shower. Do not soak in bathtub, swimming pool or hot tub for 2 weeks. Wound care The glue applied to the incision will peel slowly over the next two weeks. The stitches used are dissolvable and will not need to be removed. Do not apply antibiotics or other medications on the incision Problems with the wound You can develop some redness around the incision from bruising after surgery. If there is increasing pain, redness, tenderness around the incision with or without drainage, please contact my office to rule out an infection. Sometimes the skin at the incisions can separate, resulting in reopening of the wound. Cover the wound with antibiotic cream and sterile dressings and contact my office. Contact physician Call the office at [phone] during office hours or go the Emergency Room after hours for - ?Fever to 100.4 or greater ?Shaking chills ?Pain that increases over time ?Redness, warmth, or pus draining from incision sites ?Persistent nausea or inability to take in liquids Discharge Attestations Time Spent in Discharge Care*: less than 30 min Quality Metrics Clinical Quality Measures During this hospital stay, did patient experience: None Coding Level of Care Code Acute g [facility] note Diagnoses Postoperative ileus K91.89; K56.7
--- NOTE | 2020-10-29 17:14 | PM.PN ---
Subjective Subjective: Interval history: Clinically improved today, NGT removed, tolerating oral intake at this present time. Heart rate ranging between 96-1 02, patient's dofetilide has been on hold during course of admission Medications: Reviewed: Yes Vitals/I&O/Wt Last Vital Signs Temp 97.6 F 10/29/20 15:07 Pulse 107 H 10/29/20 15:07 Resp 17 10/29/20 15:07 BP 111/77 10/29/20 15:07 Pulse Ox 92 10/29/20 15:07 10/29/20 10/29/20 10/29/20 06:59 14:59 22:59 Intake Total 861.25 / 2701.25 800 / 800 Output Total 0 / 850 Balance 861.25 / 1851.25 800 / 800 Data : 10/29/20 04:34 10/29/20 04:34 A&P Additional A&P Information 70-year-old male with past medical history of atrial fibrillation, hypertension, seizures, COPD, and recent laparoscopic hernia repair who is presenting with complaints of generalized weakness, nausea, decreased oral intake, abdominal distention. The patient has ileus. Ileus. Resolved plan for discharge today. Tolerating A. fib with RVR. HR ranging 90--110. From medicine standpoint. Resume dofetilide and home doses of metoprolol upon discharge. Back to [facility] once home. Mildly abnormal troponin probably due to A. fib with RVR. No evidence of acute coronary syndrome. Elevated BNP probably due to RVR. No evidence of CHF at this time. Clinically euvolemic. No recent echo on chart COPD. No evidence of bronchospasm at this time. We will continue his home medications. Hypertension. Well-controlled. 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
--- NOTE | 2020-10-30 16:47 | PC.RESP ---
Smoking Cessation and Pulmonary Rehab information sent to patient.
== END 2020-10-29 14:50 | disposition home or self-care (01) | DRG 389 ==
LOC: ER 19:45 → MEDSURG 21:02
PROVIDERS: Internal Medicine; Student in an Organized Health Care Education/Training Program; Admitting Provider Surgery; Emergency Provider Nurse Practitioner Family; Visit Provider Surgery
DX: K56.7 Ileus, unspecified (principal); J90 Pleural effusion, not elsewhere classified; J44.9 Chronic obstructive pulmonary disease, unspecified; I48.91 Unspecified atrial fibrillation; G40.909 Epilepsy, unspecified, not intractable, without status epilepticus; I10 Essential (primary) hypertension; Z98.890 Other specified postprocedural states; G47.30 Sleep apnea, unspecified; F17.210 Nicotine dependence, cigarettes, uncomplicated; Z79.51 Long term (current) use of inhaled steroids; Z79.891 Long term (current) use of opiate analgesic
CPT/HCPCS: 36415; 71045; 74019; 74022; 74177; 80048; 80053; 81003; 83605; 83690; 83735; 83880; 84484; 85025; 93005; 94640; 96361; 96372; 96374; 96375; 99285; J1650; J3490; J3535; J7030; Q9967

== ENCOUNTER 2020-11-26 12:14 | Outpatient (CLI) | payer OTHER, SELFPAY ==
--- NOTE | 2020-11-26 12:24 | USCV_ITS ---
Kimo Hernandez Age: 70 Gender: M : 1950 Exam Date: 11/26/2020 13:09 Ordering Phys: Jackie Kulkarni MD Technologist: Exam Location: [facility] [place]_ Indication: recent fem/pop surg Risk Factors: Previous Vascular Surgery: MULTIPLE VASCULAR SURGERIES RIGHT LEFT BP: 135.0 / 70.00 BP: 130.0/ 70.00 0 0 Waveform Velocity (cm/s) Velocity (cm/s) Waveform Biphasic 18.7 Iliac Prox 22.9 Biphasic Biphasic 13.9 Iliac Mid 19.6 Biphasic Biphasic 15.7 Iliac Distal 34.5 Biphasic Biphasic 23.2 BEAD PICKER 21.2 Biphasic Biphasic 28.6 SFA Prox 43.2 Biphasic Biphasic 28.6 SFA Mid 78.9 Biphasic Biphasic 68.9 SFA Dist 65.2 Biphasic Biphasic 34.4 POP Biphasic Biphasic 43.5 EDGER AUTOMATIC 34.3 Biphasic Biphasic 43.0 DPA 20.6 Biphasic LUCRECIA 0.8 1.0 FINDINGS RT IL ANUERYSM NO FLOW IN THE LT POP GOOD COLLATERAL FLOW IN LT LOWER LEG Aneurysmal dilatation of the mid iliac artery on the right side measuring 3.15 x 4.9 cm. Moderate diffuse plaque in the femoral and popliteal arteries. This arterial segments were found to be diffusely ectatic. Moderate diffuse plaques in the left iliac and femoral arteries. These arterial segments were found to be diffusely ectatic. The left distal superficial femoral artery was found to have mild aneurysmal 1.7 cm in diameter. The left popliteal artery appeared to be dilated with no flow. Slightly echogenic material were found to be filling of the lumen of the popliteal artery. CONCLUSIONS 1. 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 The aneurysm appears to be 4.9 cm in length 2. Diffusely ectatic external iliac ,femoral and popliteal artery on the right side with moderate diffuse plaques. The infrapopliteal vessels were found to be patent. Resting LUCRECIA of 1.0 3. Moderate diffuse plaques in the left iliac and femoral arteries with diffuse ectasia. 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 Sluggish flow was detected in the posterior tibial and dorsalis pedis arteries on the left side. Resting LUCRECIA of 0.8 on the left side. No previous studies available for comparison Dr Andrew Petersen MD [facility] (Electronically Signed) Final Date: 26 Nov 2020 19:25 S
== END 2020-11-26 12:15 | disposition home or self-care (01) ==
LOC: RAD 12:19
PROVIDERS: PCP Family Medicine; Visit Provider Family Medicine
DX: Z01.89 Encounter for other specified special examinations (principal); I72.3 Aneurysm of iliac artery
CPT/HCPCS: 93925

== ENCOUNTER 2021-02-08 07:48 | Outpatient (CLI) | payer OTHER, SELFPAY ==
--- NOTE | 2021-02-08 08:00 | CT_ITS ---
WS: [id number] CT scan of the abdominal aorta and distal runoff into the lower extremities. Additional two-dimension al coronal and sagittal reconstruction was performed. MIP images were also performed. 02/08/2021 Clinical Data: I72.3 - Aneurysm of iliac artery Comparison: CT abdomen and pelvis, 10/26/2020. DLP: 3590.[address] scans at [facility] use at least one of these dose optimization techniques: automat ed exposure control; mA and/or kV adjustment per patient size (includes targeted exams where dose is matched to clinical indication); or iterative reconstruction. Findings: Vascular findings: There is an aortic stent graft extending into the common iliac arteries. The graft is intact without any leakage. The right internal iliac artery stent is occluded. The left internal iliac artery is андрей nted. The left internal iliac artery shows a 3.3 cm aneurysm. There is a 3.7 cm right common femoral artery aneurysm which extends into the right deep femoral artery with partial occlusion. There is a l eft common femoral artery aneurysm measuring 3.3 cm with adjacent surgical clips. There are aneurysms of the distal left superficial femoral artery and distal right superficial femoral artery each measu ring 2.3 cm. The blood flow in the arteries of the thighs is extremely poor. The arteries of the trif urcation show minimal flow into the ankles. Abdominal findings: The distal thoracic aorta is tortuous. No nodules, masses or effusions are seen. There is coronary ar shaka calcification. Liver, gallbladder, spleen, pancreas and adrenal glands are normal. The kidneys s how excellent bilateral contrast excretion with no cysts, masses, hydronephrosis or renal calculi. Th e stomach, small bowel and colon are not remarkable. No abscess, adenopathy, ascites, mass, obstructi on or free air is seen. No appendicitis or diverticulitis is seen. The bladder is unremarkable. The p rostate is minimally enlarged. Osteoarthritis of the lower thoracic and lumbar vertebral bodies is no stef. The minimal compression fractures of T10-T12 again are seen. CT/CT angio abd aorta runof [id number] Impression: 1. Aortic stent graft with no leakage or occlusion. 2. Multiple aneurysms including the iliac arteries, common femoral arteries and distal superficial femoral arteries. 3. Poor circulation in the arteries of the thighs and legs.
[2021-02-08 08:38] LABS: Blood Urea Nitrogen 26 mg/dL (8-23); Glomerular Filtration Rate 83.4 mL/min (90-130)
[2021-02-08] MEDS: iohexol 350 mg/mL 100 mL Btl IV (08:58)
== END 2021-02-08 07:49 | disposition home or self-care (01) ==
PROVIDERS: PCP Family Medicine; Visit Provider Internal Medicine Cardiovascular Disease
DX: Z01.812 Encounter for preprocedural laboratory examination (principal); I72.3 Aneurysm of iliac artery
CPT/HCPCS: 75635; 82565; 84520; Q9967

== ENCOUNTER 2021-02-25 07:56 | Outpatient (CLI) | payer OTHER, MEDICARE, SELFPAY ==
--- NOTE | 2021-02-25 08:00 | USCV_ITS ---
Kimo Hernandez Age: 70 Gender: M : 1950 Exam Date: 02/25/2021 08:15 Ordering Phys: Andrew Petersen MD ([email or web address]) Technologist: [place] [facility] [place]: SOB COPD CHEST PAIN BP: 118 / 70 HR: 55 Rhythm: Sinus Technical Quality: Adequate MEASUREMENTS (Male / Female) Normal Values 2D ECHO LV Diastolic Diameter PLAX 4.2 cm 4.2 - 5.9 / 3.9 - 5.3 cm LV Systolic Diameter PLAX 2.9 cm IVS Diastolic Thickness 1.1 cm 0.6 - 1.0 / 0.6 - 0.9 cm IVS Systolic Thickness 1.4 cm LVPW Diastolic Thickness 1.3 cm 0.6 - 1.0 / 0.6 - 0.9 cm LVPW Systolic Thickness 1.7 cm LVOT Diameter 2.1 cm LV Ejection Fraction 2D Teich 58.0 % LV Ejection Fraction MOD 2C 74.4 % LV Ejection Fraction 2C AL 74.3 % LA Diameter 4.2 cm LA Width 4.4 cm LA Height 5.6 cm RA Width 4.2 cm RA Height 6.3 cm M-MODE LV Diastolic Diameter MM 5.2 cm 4.2 - 5.9 / 3.9 - 5.3 cm LV Systolic Diameter MM 3.5 cm LV Ejection Fraction MM Teich 62.3 % IVS Diastolic Thickness MM 1.3 cm 0.6 - 1.0 / 0.6 - 0.9 cm IVS Systolic Thickness MM 1.5 cm LVPW Diastolic Thickness MM 1.4 cm 0.6 - 1.0 / 0.6 - 0.9 cm LVPW Systolic Thickness MM 2.2 cm RV Diastolic Diameter MM 2.9 cm Aortic Annulus Diameter 3.6 cm LA Ao Ratio MM 1.3 MV E Point Septal Separation 0.6 cm DOPPLER MV Area PHT 5.1 cm squared Mitral E to A Ratio 1.3 MV E' Velocity 33.5 cm/s Mitral E to MV E' Ratio 4.9 Mitral E to LV E' Lateral Ratio 3.6 Mitral E to LV E' Septal Ratio 7.6 TR Peak Velocity 271.0 cm/s TR Peak Gradient 29.4 mmHg TV Peak E Velocity 58.0 cm/s Right Atrial Pressure 3.0 mmHg Pulmonary Artery Systolic Pressu 32.4 mmHg FINDINGS Left Ventricle Normal left ventricular size and systolic function, EF 76 %. Mild diffuse hypokinesia of the septum. Right Ventricle The right auricle appears to be mildly dilated. Mild diffuse hypokinesia of the right ventricle was noted. Right Atrium The right atrium is normal in size. Left Atrium The left atrium is normal in size. Mitral Valve Thickened mitral valve. Aortic Valve Thickened aortic valve. Tricuspid Valve Mild tricuspid valve regurgitation. Pulmonic Valve Mild pulmonary valve regurgitation. Pericardium Normal pericardium without effusion. Aorta Normal ascending aorta dimension. CONCLUSIONS Normal left ventricular size and systolic function, EF 76 %. Mild diffuse hypokinesia of the septum. Thickened mitral valve. Thickened aortic valve. Mild tricuspid valve regurgitation. Mild pulmonary valve regurgitation. The PA pressure could not be calculated because of the poor Doppler signals. No similar previous studies are available for comparison Dr Andrew Petersen MD [facility] (Electronically Signed) Final Date: 25 February 2021 13:42 S
[2021-02-25 08:32] VITALS: BMI 25.8
--- NOTE | 2021-02-25 08:33 | ECG_ITS ---
[facility] Test Date: 2021-02-25 Pat Name: Kimo Hernandez Department: Room: Gender: Male Assistant Principal: : 1950 Requested By: Andrew Petersen Order Number: [id number] Ben MD: Andrew Petersen M.D. Interpretive Statements NAME OF STUDY: LEXISCAN SESTAMIBI STRESS TEST INDICATION: LV DYSFUNCTION PROCEDURE: At the baseline, the EKG revealed normal sinus rhythm with a normal ST Ts. The baseline blood pressure was 121/76 mm Hg with a heart rate of 52 beats/min. Lexiscan was infused over a period of 20 seconds. A total of 0.4 milligrams of Lexiscan was infused. The stress phase was continued for a total of 5 minutes. Heart rate at the end of the stress phase was 70 with a blood pressure 116/75. The EKG at the peak infusion revealed no significant changes. Sestamibi was injected 20 seconds after the Lexiscan infusion. Blood pressure at the end of the recovery phase was 121/83 with a heart rate of 68 per minute. CONCLUSION: 1. No significant EKG changes with the LexiScan infusion 2. No LexiScan induced chest pain or cardiac arrhythmia 3. Normal blood pressure and heart rate response 4. Sestamibi/sestamibi perfusion scan pending; see separate report. Electronically Signed On 02-26-2021 19:03:27 CDT by Andrew Petersen M.D. [email or web address]
--- NOTE | 2021-02-25 08:33 | NMCV_ITS ---
NM shun perf SPECT r/s* [id number] Kimo Hernandez Age: 70 Gender: M : 1950 Exam Date: 02/25/2021 09:46 Ordering Phys: Andrew Petersen MD ([email or web address]) Technologist: LILLIE Ricketts Exam Location: [facility] Indications: SHORTNESS OF BREATH STRESS TEST Please see separate stress [facility] for full findings IMAGE PROTOCOL Rest/Stress 1 Lexiscan Day Radiopharmaceutical Dose (mCi) Administration Site Administered by Rest: Tc-99m 10.7 IV LILLIE Ricketts Sestamibi Stress:Tc-99m 32.3 IV Slime Alston, LILLIE Sestamibi Rest: 25-Feb-2021 60 Discovery 630 Stress: 25-Feb-2021 30 Discovery 630 0.4mg Lexiscan. Images obtained in supine and prone position. SPECT RESULTS Technical Quality: Excellent Raw Data Analysis: Normal Image Corrections: No attenuation or motion correction applied Summed Stress Score: 2 Summed Rest Score: 3 Summed Difference Score: 1 PERFUSION FINDINGS Small to moderate area of decreased aseptic in the mid and apical inferior and LV apical region. Some reversibility was noted in the mid inferior region with the supine imaging. However the prone imaging, no significant reversibility was noted FUNCTIONAL RESULTS (calculated via Gated SPECT) Stress Image LV EF (%): 63 Stress EDV (mL):131 TID: 1.21 Stress ESV (mL):49 FUNCTIONAL FINDINGS: Segmental wall motion analysis revealed mild diffuse hypokinesia of the septum IMPRESSIONS 1. Myocardial perfusion imaging revealing small to moderate area of persistent decreased tracer uptake in the mid and apical inferior and LV apical regions with some reversibility in the mid inferior region, suggestive of myocardial scarring with ischemia in distribution of the right coronary artery. Elevated transient ischemic dilatation ratio of 1.21 also may suggest endocardial ischemia. However in view of the inconsistency with the prone imaging, the reliability is somewhat questionable. 2. Normal LV ejection fraction of 63%. 3. LV wall motion analysis revealing mild diffuse hypokinesia of the septum. 4. LV volume, upper limit of normal. No similar previous studies are available for comparison Dr Andrew Petersen MD [facility] (Electronically Signed) Final Date: 25 February 2021 18:21 S
[2021-02-25] MEDS: regadenoson 0.4 Mg/5 ml Syringe IVP (11:03)
[2021-02-25 11:28] VITALS: BP 146/73; PULSE 63
== END 2021-02-25 07:57 | disposition home or self-care (01) ==
LOC: CDL 08:03
PROVIDERS: PCP Family Medicine; Visit Provider Internal Medicine Cardiovascular Disease
DX: R06.02 Shortness of breath (principal); J44.9 Chronic obstructive pulmonary disease, unspecified; R07.9 Chest pain, unspecified; I08.3 Combined rheumatic disorders of mitral, aortic and tricuspid valves
CPT/HCPCS: 78452; 93017; 93306; A9500; J2785

== ENCOUNTER 2021-06-02 11:16 | Emergency (ER) | payer OTHER, MEDICARE, SELFPAY ==
[2021-06-02 11:23] VITALS: BP 131/82; PULSE 79; RESP 16; TEMP 36.3; O2SAT 100
--- NOTE | 2021-06-02 11:28 | XRR_ITS ---
PROCEDURE INFORMATION: Exam: XR Chest Exam date and time: 06/02/2021 11:28 AM Age: 70 years old Clinical indication: Dyspnea and shortness of breath; Patient HX: RT leg artery x 1 wk ago; Additional info: Dyspnea post op TECHNIQUE: Imaging protocol: XR of the chest. Views: 1 view. COMPARISON: CR XR chest 1V portable [id number] 10/26/2020 9:35 PM FINDINGS: Lungs: Emphysema. Lungs are well aerated without a focal area of consolidation. Pleural spaces: Unremarkable. No pleural effusion. No pneumothorax. Heart/Mediastinum: Unremarkable. No cardiomegaly. Bones/joints: Unremarkable. XR/XR chest 1V portable [id number] IMPRESSION: Lungs are well aerated without a focal area of consolidation. Radiation Dose CTDIVOL = (mGy): DLP = (mGy-cm)
--- NOTE | 2021-06-02 11:28 | CT_ITS ---
WS: [id number] CT CHEST ANGIOGRAPHY WITH REFORMATS HISTORY: Short of breath. Recent surgery. TECHNIQUE: Contiguous axial images are obtained through the chest during arterial injection of intrav enous contrast. Images are reconstructed to evaluate the pulmonary arteries. MIP imaging also reviewe d. All CT scans at [facility] use at least one of these dose optimization techniques: automat ed exposure control; mA and/or kV adjustment per patient size (includes targeted exams where dose is matched to clinical indication); or iterative reconstruction. CONTRAST: Omnipaque 350; 76 mL IV. DLP: 614.15 mGy.cm COMPARISON: None available. Very good opacification of the pulmonary arteries. No filling defects are identified. Mildly enlarged pulmonary artery. Mild atherosclerosis aorta. No aneurysm. Mild enlargement of the RIGHT heart chamb ers. There is very slight RIGHT heart strain. Minimal tricuspid regurgitation into hepatic veins. Increasing opacifications at the lung bases but greatest at the RIGHT lung base. Focal nodular opacif ications. This probably an endobronchial pneumonia or aspiration pneumonia. Atelectasis more likely a t the RIGHT lung base. There is an additional 6 mm nodule in the LEFT upper lobe, image 22 of series 3 which will need further evaluation and follow-up. Small mediastinal and hilar lymph nodes. Mildly e ctatic thoracic aorta. In the upper abdomen the origin of an aortoiliac bypass graft is noted. No adrenal mass. Increase in the thoracic kyphosis. Multiple anterior compression fractures in the thoracic spine incl uding T3, T7, T8, T9, T10, and T12. Similar to the prior study. CT/CT angio chest PE protcl [id number] IMPRESSION: 1. No pulmonary embolism. 2. There is mild RIGHT heart strain. 3. RIGHT basilar opacification is likely pneumonia/pneumonitis. Opacification at the LEFT lung base is more likely atelectasis. 4. LEFT upper lobe nodule measures 6 mm. Recommend follow-up chest CT with IV contrast in 6 months.
[2021-06-02 11:56] VITALS: BP 140/87; PULSE 91; RESP 24; O2SAT 94
[2021-06-02 11:57] LABS: Basophils # 0.1 10^3/uL (0.0-0.1); Basophils % 0.5 %; Eosinophils # 0.1 10^3/uL (0.0-0.8); Hematocrit 34.5 % (42.0-52.0); Hemoglobin 11.1 g/dL (11.7-16.6); Lymphocytes % 8.6 %; Mean Corpuscular HGB Conc 32.2 g/dL (30.0-36.0); Mean Corpuscular Hemoglobin 29.2 pg (28.0-34.0); Mean Corpuscular Volume 90.8 fl (80-94); Monocytes # 0.8 10^3/uL (0.2-0.9); Monocytes % 6.6 %; Neutrophils # 9.85 10^3/uL (1.8-7.7); Neutrophils % 82.5 %; Nucleated Red Blood Cells % 0 %; Platelet Count 390 10^3/cmm (130-400); Red Cell Distribution Width 13.7 % (12.1-15.1)
[2021-06-02 12:22] LABS: Anion Gap 14.7 (5-19); Blood Urea Nitrogen 13 mg/dL (8-23); Calcium 9.3 mg/dL (8.5-10.5); Carbon Dioxide 28 mmol/L (22-29); Chloride 93 mmol/L (98-107); Creatinine Clr Calc Pharmacy 97.3282; Glomerular Filtration Rate 111.5 mL/min (90-130); Glucose 102 mg/dL (65-115); Osmolality Calculated 272 mOsm/kg (285-295); Potassium 4.7 mmol/L (3.5-5.1); Sodium 131 mmol/L (136-145)
--- NOTE | 2021-06-02 12:45 | W.ED.GENADLT ---
HPI - General Adult General: Chief complaint: Shortness of Breath/Dyspnea Stated complaint: SURGERY 21:SOB NOW/[facility] Time Seen by Provider: 06/02/21 11:28 History of Present Illness: HPI narrative: Patient is a 70-year-old female with history of COPD, recent right sided femoral bypass from 8 days ago presenting to the emergency room with new onset of dyspnea since surgery. Patient was told to come to the emergency room from the [facility] for evaluation of blood clots. Patient denies any fever/chills, chest pain, palpitation or lightheadedness. Patient has no nausea/vomiting, diarrhea, melena hematochezia or abdominal complaints. Patient says that he has been using his albuterol for the cough and shortness of breath. Onset: 8 days ago Duration:8 days Location:home Severity:moderate Review of Systems Narrative: Constitutional: No fever, no chills. HEENT: No vision changes CV: No chest pain, no palpitations PULM: +cough, +dyspnea. GI: No abdominal pain, no N/V/D. : No dysuria MSKEL: No muscle pain SKIN: No new rashes, no lesions. NEURO: No headache, no focal weakness. HEME: No visible bruises PSYCH: Normal mood PFSH ED PFSH: Medical History A-fib COPD (chronic obstructive pulmonary disease) Depression Dyspnea on exertion Hx of seizure disorder Hypertension Iliac artery aneurysm, bilateral DA (obstructive sleep apnea) Popliteal artery aneurysm Sleep apnea in adult Spinal stenosis Tinnitus Surgical History History of AAA (abdominal aortic aneurysm) repair 2010 History of colonoscopy with polypectomy 2018 History of left inguinal hernia repair 2016 History of PTCA History of vascular surgery rt and left leg 2019 S/P hernia repair incisional Family History Mother Cancer Diabetes Father CAD (coronary artery disease) Cancer Chronic kidney disease (CKD) Diabetes Brother No problems noted. Sister No problems noted. Grandfather Lung disease Denies family history of Clotting disorder Dementia Suicide Anesthesia complication Bleeding disorder Stroke Social History Alcohol intake: never Physical Exam Narrative: EXAM NARRATIVE: Head: Atraumatic Eyes: PERRL, conjunctiva without injection ENT: Mucous membrane moist NECK: Supple, ROM intact LUNGS: LCTAB, no crackles/rhonchi CV: RRR ABDOMEN: Soft, nontender in all quadrants EXTREMITY: Normal ROM SKIN: No rash or erythema NEURO: Awake and alert, no focal motor deficits PSYCH: Normal mood and affect Course Vital Signs: Vital signs: Vital Signs Temperature 97.4 F L 06/02/21 11:23 Pulse Rate 78 06/02/21 14:36 Respiratory Rate 16 06/02/21 14:36 Blood Pressure 104/78 06/02/21 14:36 Pulse Oximetry 93 06/02/21 14:36 MDM - General Adult MDM Narrative: Medical decision making narrative: Patient is a 7-year-old male with a history of recent right-sided femoral bypass presenting to the emergency room with dyspnea and cough x8 days since procedure. On exam, patient is hemodynamically stable with no signs of increased work of breathing. Patient continues to be satting greater than 95% on room air. Patient has no wheezing on lung exam. Lab work-up showed white count 12.0 likely reactive. H&H appears to be stable. Sodium is noted to be 131. XR chest not show any signs of pneumonia. CTA chest negative for PE. Mild heart strain likely secondary to chronic COPD. At the present time, I have offered patient breathing treatment, at this time, patient declined offer for breathing treatment. Incidental findings of pulmonary nodule discussed extensively with patient. Patient received a copy of the CT report with the documented findings. Patient is instructed to follow up urgently with specialists. Doubt ACS/PE or other emergent causes of chest pain. No suspicion for aortic dissection given no widened mediastinum, 2+ upper extremity pulses, or tearing pain. No suspicion for PE given no pleuritic chest pain, recent immobilization or surgery hemoptysis, or other VTE risk factors. EKG is non-ischemic. XR normal. Given WBC of 12 and possible PNA, will treat as outpatient PNA. Patient is in no respiratory distress, tolerating p.o., no signs of hypoxemia, patient is a candidate for outpatient treatment. Rx doxycycline BID x 14 days and augmentin BID x 10 days Disposition: Discharge. Patient counseled regarding diagnostic impression, treatment plan. Patient given ED strict return precautions to return for continuation, worsening, or development of new symptoms. Instructed to f/u w/ PCP regarding symptoms today. Patient verbalized understanding. Lab Data: Labs: Lab Results 06/02/21 06/02/21 11:48 11:48 WBC 12.0 10^3/uL H 10 ^3/uL (4.0-10.0) RBC 3.80 10^6/uL L 10 ^6/uL (4.1-5.3) Hgb 11.1 g/dL L g/dL (11.7-16.6) Hct 34.5 % L % (42.0-52.0) MCV 90.8 fl fl (80-94) MCH 29.2 pg pg (28.0-34.0) MCHC 32.2 g/dL g/dL (30.0-36.0) RDW 13.7 % % (12.1-15.1) Plt Count 390 10^3/cmm 10^3 /cmm (130-400) MPV 10.0 fL fL (7.4-10.4) Neut % (Auto) 82.5 % % Lymph % (Auto) 8.6 % % [place] % (Auto) 6.6 % % Eos % (Auto) 1.0 % % Baso % (Auto) 0.5 % % Neut # (Auto) 9.85 10^3/uL H 10 ^3/uL (1.8-7.7) Lymph # (Auto) 1.0 10^3/uL 10^3/ uL (0.8-4.8) [place] # (Auto) 0.8 10^3/uL 10^3/ uL (0.2-0.9) Eos # (Auto) 0.1 10^3/uL 10^3/ uL (0.0-0.8) Baso # (Auto) 0.1 10^3/uL 10^3/ uL (0.0-0.1) Nucleated RBC % (a uto) 0 % % Nucleated RBCs # 0.0 /100WBC /100W BC Sodium 131 mmol/L L mmol /L (136-145) Potassium 4.7 mmol/L mmol/L (3.5-5.1) Chloride 93 mmol/L L mmol/ L (98-107) Carbon Dioxide 28 mmol/L mmol/L (22-29) Anion Gap 14.7 (5-19) BUN 13 mg/dL mg/dL (8-23) Creatinine 0.7 mg/dL mg/dL (0.7-1.2) GFR Calculation 111.5 mL/min mL/m in (90-130) Glucose 102 mg/dL mg/dL (65-115) Calculated Osmolal ity 272 mOsm/kg L mOs m/kg (285-295) Calcium 9.3 mg/dL mg/dL (8.5-10.5) Imaging Data^: Other Imaging: Radiologist's impression: [facility] [place] [id number] ReportSigned Patient: Lora Hernandez #: [id number]: 1950Acct#:[id number]/Sex: 70 / MADM Date: 06/02/21Loc: ERRoom/Bed:Attending Dr: Ordering Provider/Ordering MD: Mark Parra MD Date of Service: 06/02/21 Procedure(s): XR chest 1V portable [id number] Accession Number(s): [id number] Report Number: [id number] PROCEDURE INFORMATION: Exam: XR Chest Exam date and time: 06/02/2021 11:28 AM Age: 70 years old Clinical indication: Dyspnea and shortness of breath; Patient HX: RT leg artery x 1 wk ago; Additional info: Dyspnea post op TECHNIQUE: Imaging protocol: XR of the chest. Views: 1 view. COMPARISON: CR XR chest 1V portable [id number] 10/26/2020 9:35 PM FINDINGS: Lungs: Emphysema. Lungs are well aerated without a focal area of consolidation. Pleural spaces: Unremarkable. No pleural effusion. No pneumothorax. Heart/Mediastinum: Unremarkable. No cardiomegaly. Bones/joints: Unremarkable. XR/XR chest 1V portable [id number] IMPRESSION: Lungs are well aerated without a focal area of consolidation. Radiation Dose CTDIVOL = (mGy): DLP = (mGy-cm) Dictated By:Grzegorz Schaeffer MDSigned By:Grzegorz Schaeffer MDSigned Date/Time:06/02/21 1213DD/ [address] [facility], [place] [address]RE Scan ReportSigned Patient: Lora Hernandez #: [id number]: 1950Acct#:[id number]/Sex: 70 / MADM Date: 06/02/21Loc: ERRoom/Bed:Attending Dr: Ordering Provider/Ordering MD: Mark Parar MD Date of Service: 06/02/21 Procedure(s): CT angio chest PE protcl [id number] Accession Number(s): [id number] Report Number: [id number] WS: [id number] CT CHEST ANGIOGRAPHY WITH REFORMATS HISTORY: Short of breath. Recent surgery. TECHNIQUE: Contiguous axial images are obtained through the chest during arterial injection of intravenous contrast. Images are reconstructed to evaluate the pulmonary arteries. MIP imaging also reviewed. All CT scans at [facility] use at least one of these dose optimization techniques: automated exposure control; mA and/or kV adjustment per patient size (includes targeted exams where dose is matched to clinical indication); or iterative reconstruction. CONTRAST: Omnipaque 350; 76 mL IV. DLP: 614.15 mGy.cm COMPARISON: None available. Very good opacification of the pulmonary arteries. No filling defects are identified. Mildly enlarged pulmonary artery. Mild atherosclerosis aorta. No aneurysm. Mild enlargement of the RIGHT heart chambers. There is very slight RIGHT heart strain. Minimal tricuspid regurgitation into hepatic veins. Increasing opacifications at the lung bases but greatest at the RIGHT lung base. Focal nodular opacifications. This probably an endobronchial pneumonia or aspiration pneumonia. Atelectasis more likely at the RIGHT lung base. There is an additional 6 mm nodule in the LEFT upper lobe, image 22 of series 3 which will need further evaluation and follow-up. Small mediastinal and hilar lymph nodes. Mildly ectatic thoracic aorta. In the upper abdomen the origin of an aortoiliac bypass graft is noted. No adrenal mass. Increase in the thoracic kyphosis. Multiple anterior compression fractures in the thoracic spine including T3, T7, T8, T9, T10, and T12. Similar to the prior study. CT/CT angio chest PE protcl [id number] IMPRESSION: 1. No pulmonary embolism. 2. There is mild RIGHT heart strain. 3. RIGHT basilar opacification is likely pneumonia/pneumonitis. Opacification at the LEFT lung base is more likely atelectasis. 4. LEFT upper lobe nodule measures 6 mm. Recommend follow-up chest CT with IV contrast in 6 months. Dictated By:Ingrid Ca DOSigned By:Ingrid Ca DOSigned Date/Time:06/02/21 1315DD/ 1300 Discharge Plan Discharge Patient Disposition: Home Clinical Impression: Dyspnea, Pneumonia Condition: Stable Prescriptions: New doxycycline hyclate 100 mg capsule 100 mg PO Q12H 10 Days Qty: 20 RF: 0 Augmentin 875-125 mg tablet 1 tab PO Q12H 10 Days Qty: 20 RF: 0 No Action apixaban 5 mg tablet 5 mg PO BID@0800,1999 RF: 0 dofetilide 500 mcg capsule 500 mcg PO Q12H RF: 0 levetiracetam 500 mg tablet 500 mg PO BID@0800,1999 RF: 0 tiotropium bromide 18 mcg capsule, w/inhalation device 1 cap inhalation DAILY@0800 RF: 0 metoprolol tartrate 25 mg tablet 25 mg PO BID@0800,1999 RF: 0 albuterol sulfate [ProAir HFA] 90 mcg/actuation HFA aerosol inhaler 1 inh inhalation QID RF: 0 lisinopril 2.5 mg tablet 2.5 mg PO DAILY Qty: 90 RF: 3 Symbicort 160-4.5 mcg/actuation Hfa Aerosol Inhaler 2 puff INHALATION Q12H RF: 0 Vitamin D3 1 tab PO DAILY@0800 RF: 0 Discharge Orders: Discharge ED (Routine); Ordered 06/02/21 Ordered By: Mark Parra Referrals: Jackie Kulkarni MD [Primary Care Provider] - Discharge Diet: Advance as tolerated Discharge Activity: Resume usual activity Patient Instructions: Pulmonary Nodules (ED), Pneumonia (ED) Activity Restrictions/Additional Instructions: Please follow up with your PCP for the following lung nodule: [employer] [facility] [place] [id number] [place], [place] [address]YI Scan ReportSigned Patient: Lora Hernandez #: [id number]: 1950Acct#:[id number]/Sex: 70 / MADM Date: 06/02/21Loc: ERRoom/Bed:Attending Dr: Ordering Provider/Ordering MD: Mark Parra MD Date of Service: 06/02/21 Procedure(s): CT angio chest PE protcl [id number] Accession Number(s): [id number] Report Number: [id number] WS: [id number] CT CHEST ANGIOGRAPHY WITH REFORMATS HISTORY: Short of breath. Recent surgery. TECHNIQUE: Contiguous axial images are obtained through the chest during arterial injection of intravenous contrast. Images are reconstructed to evaluate the pulmonary arteries. MIP imaging also reviewed. All CT scans at [facility] use at least one of these dose optimization techniques: automated exposure control; mA and/or kV adjustment per patient size (includes targeted exams where dose is matched to clinical indication); or iterative reconstruction. CONTRAST: Omnipaque 350; 76 mL IV. DLP: 614.15 mGy.cm COMPARISON: None available. Very good opacification of the pulmonary arteries. No filling defects are identified. Mildly enlarged pulmonary artery. Mild atherosclerosis aorta. No aneurysm. Mild enlargement of the RIGHT heart chambers. There is very slight RIGHT heart strain. Minimal tricuspid regurgitation into hepatic veins. Increasing opacifications at the lung bases but greatest at the RIGHT lung base. Focal nodular opacifications. This probably an endobronchial pneumonia or aspiration pneumonia. Atelectasis more likely at the RIGHT lung base. There is an additional 6 mm nodule in the LEFT upper lobe, image 22 of series 3 which will need further evaluation and follow-up. Small mediastinal and hilar lymph nodes. Mildly ectatic thoracic aorta. In the upper abdomen the origin of an aortoiliac bypass graft is noted. No adrenal mass. Increase in the thoracic kyphosis. Multiple anterior compression fractures in the thoracic spine including T3, T7, T8, T9, T10, and T12. Similar to the prior study. CT/CT angio chest PE protcl [id number] IMPRESSION: 1. No pulmonary embolism. 2. There is mild RIGHT heart strain. 3. RIGHT basilar opacification is likely pneumonia/pneumonitis. Opacification at the LEFT lung base is more likely atelectasis. 4. LEFT upper lobe nodule measures 6 mm. Recommend follow-up chest CT with IV contrast in 6 months. Dictated By:Ingrid Ca DOSigned By:Ingrid Ca DOSigned Date/Time:06/02/21 1315DD/ 1300 Coding Level of Care Code ED Investigator Internal Affairs for [facility]
[2021-06-02] MEDS: iohexol 350 mg/mL 100 mL Btl IV (12:52)
[2021-06-02 13:28] VITALS: PULSE 77; RESP 20; O2SAT 94
[2021-06-02] MEDS: ipratropium-albuterol 3 mL Neb INHALATION ×3 (13:28→13:36)
[2021-06-02 13:39] VITALS: PULSE 74; RESP 20; O2SAT 94
[2021-06-02 14:36] VITALS: BP 104/78; PULSE 78; RESP 16; O2SAT 93
== END 2021-06-02 14:27 | disposition home or self-care (01) ==
PROVIDERS: Emergency Provider Emergency Medicine; PCP Family Medicine
DX: R06.00 Dyspnea, unspecified (principal); I11.9 Hypertensive heart disease without heart failure; R91.1 Solitary pulmonary nodule; Z79.01 Long term (current) use of anticoagulants
CPT/HCPCS: 71045; 71275; 80048; 85025; 94640; 99284; Q9967

== ENCOUNTER 2021-09-21 13:05 | Outpatient (CLI) | payer OTHER, SELFPAY ==
--- NOTE | 2021-09-21 13:00 | CTR_ITS ---
PROCEDURE INFORMATION: Exam: CT Chest Without Contrast; Diagnostic Exam date and time: 09/21/2021 1:00 PM Age: 71 years old Clinical indication: Condition or disease; Lung condition and disease; Other: Lung nodule; Additional info: F/u lung nodule TECHNIQUE: Imaging protocol: Diagnostic computed tomography of the chest without contrast. Radiation optimization: All CT scans at this facility use at least one of these dose optimization techniques: automated exposure control; mA and/or kV adjustment per patient size (includes targeted exams where dose is matched to clinical indication); or iterative reconstruction. COMPARISON: CT angio chest PE protcl [id number] 06/02/2021 12:48 PM RADIATION DOSE METRICS: Total DLP (mGy-cm): 749.56 FINDINGS: Lungs: 2 mm nodule in the right upper lobe which is new (series 3, image 30). 6 mm nodule at the right lung base. 4 mm nodule at the left lung base is new (series 3, image 32). Atelectasis at the bilateral lung bases. Stable 7 mm nodule in the left upper lobe (series 3, image 23). Pleural spaces: Unremarkable. No pneumothorax. No pleural effusion. Heart: Coronary vasculature calcifications. Aorta: Atherosclerotic calcification of the aortic arch. Lymph nodes: Unremarkable. No enlarged lymph nodes. Bones/joints: Multilevel chronic compression fractures of the thoracic spine. Soft tissues: Unremarkable. CT/CT chest [facility] [id number] IMPRESSION: Multiple nodules in bilateral lungs with the largest measuring 7 mm in the left upper lobe.For patients at low risk (minimal or absent history of smoking and of other known risk factors), recommend CT Chest at 3-6 months, then consider CT Chest at 18-24 months. For patients at high risk (history of smoking or of other known risk factors), recommend CT Chest at 3-6 months, then CT Chest at 18-24 months. (Reference: [place]) References: [place] Vergara et al. Guidelines for Management of Incidental Pulmonary Nodules Detected on CT Images: From the Fleischner Society 2017. Radiology. 2017;284(1):228-243.
== END 2021-09-21 13:06 | disposition home or self-care (01) ==
LOC: RAD 13:06
PROVIDERS: PCP Family Medicine; Visit Provider Internal Medicine Pulmonary Disease
DX: R91.8 Other nonspecific abnormal finding of lung field (principal)
CPT/HCPCS: 71250

== ENCOUNTER → 2021-10-06 12:20 | Outpatient (BNVA) | payer OTHER, SELFPAY | PROVIDERS: PCP Family Medicine; Visit Provider Internal Medicine Cardiovascular Disease | DX: R06.02 Shortness of breath (principal); I71.2 Thoracic aortic aneurysm, without rupture; I48.19 Other persistent atrial fibrillation; F17.210 Nicotine dependence, cigarettes, uncomplicated | CPT/HCPCS: 99214 ==

== ENCOUNTER 2021-10-19 09:09 | Outpatient (CLI) | payer OTHER, SELFPAY ==
--- NOTE | 2021-10-19 13:25 | PFTS_ITS ---
Date of Study:10/19/21 Date of Dictation: MECHANICS: Forced vital capacity (FVC) is reduced. Forced expiratory volume in one second (FEV1) is reduced. FEV1/FVC is reduced. FLOW VOLUME LOOP: Reduced flow at all lung volumes with significant scooping. LUNG VOLUMES: Total lung capacity (TLC) is normal. Residual volume (RV) is increased. DIFFUSING CAPACITY FOR CARBON MONOXIDE: Moderately reduced. INTERPRETATION: The postbronchodilator spirometry is consistent with severe obstruction. There is no significant postbronchodilator response. The lung volumes are consistent with air trapping. Gas exchange (DLCO) is moderately reduced. MTDD
== END 2021-10-19 09:10 | disposition home or self-care (01) ==
LOC: RT 09:10
PROVIDERS: PCP Family Medicine; Visit Provider Internal Medicine Pulmonary Disease
DX: J43.2 Centrilobular emphysema (principal)
CPT/HCPCS: 94060; 94618; 94726; 94729; J7611

== ENCOUNTER 2021-11-09 10:58 | Emergency (ER) | payer OTHER, MEDICARE, SELFPAY ==
[2021-11-09 11:23] VITALS: BP 145/79; PULSE 96; RESP 18; TEMP 36.5; O2SAT 95; BMI 31.6
[2021-11-09 11:37] VITALS: BP 120/83; PULSE 91; RESP 17; O2SAT 94
--- NOTE | 2021-11-09 12:10 | W.ED.EXTPRO ---
HPI - Extremity Problem General: Chief complaint: Extremity Problem,Nontraumatic Stated complaint: Swelling and pain in Rt Leg Time Seen by Provider: 11/09/21 12:10 History of Present Illness: Mr. Hernandez is a 71-year-old gentleman with complex past medical history including multiple vascular surgeries secondary to aneurysms left lower extremity approximately 2 and half years ago and right lower extremity 6 months ago now presenting with concern over increased pain and sensory changes. He reports being at his baseline health the past few days and no associated trauma or known provoking events. Last night he experienced profound itchy in the calf and foot without clear explanation or skin changes. This resolved and he subsequently developed a severe pain in the right anterior tinoco laterally. At worst intensity was 9/10 and currently improved spontaneously to be about 2-3 out of 10. Quality is burning/aching. He reports compliance with his medication regimen including apixaban, it does sound like previous events requiring intervention for acute thrombotic in combination with known vascular disease. Care is primarily been at [facility]. No other specific changes in health, exacerbating, or alleviating factors identified. Onset (ago): hour(s) Pain Consistency: constant Location: right and lower extremity Severity scale (1-10): 2 Quality: burning and aching Relieving factors: nothing Exacerbating factors: nothing Review of Systems General: Reports: 10 or more systems reviewed and unremarkable except in HPI and below PFSH ED PFSH: Medical History A-fib Benign essential HTN COPD (chronic obstructive pulmonary disease) Depression Dyspnea on exertion Hx of seizure disorder Iliac artery aneurysm, bilateral DA (obstructive sleep apnea) Popliteal artery aneurysm Sleep apnea in adult Spinal stenosis Tinnitus Surgical History History of AAA (abdominal aortic aneurysm) repair 2010 History of colonoscopy with polypectomy 2018 History of left inguinal hernia repair 2016 History of PTCA History of vascular surgery rt and left leg 2019 S/P hernia repair incisional Family History Mother Cancer Diabetes Father CAD (coronary artery disease) Cancer Chronic kidney disease (CKD) Diabetes Brother No problems noted. Sister No problems noted. Grandfather Lung disease Denies family history of Clotting disorder Dementia Suicide Anesthesia complication Bleeding disorder Stroke Social History Smoking and tobacco status: current some day smoker cigarettes and cigars Alcohol intake: never Physical Exam Const: COMMON NORMALS: alert GENERAL APPEARANCE: cooperative and well developed HENMT: COMMON NORMALS: normocephalic and atraumatic HEAD & SCALP: normocephalic and atraumatic Eye: COMMON NORMALS: conjunctivae normal CONJUNCTIVA: Yes conjunctivae normal SCLERA: sclerae normal Neck/C-Spine: COMMON NORMALS: supple GENERAL: Yes trachea midline Resp: COMMON NORMALS: normal respiratory effort EFFORT & INSPECTION: Yes able to speak in complete sentences Cardio: COMMON NORMALS: regular rate and regular rhythm RATE: regular rate RHYTHM: regular rhythm OTHER: Mild asymmetry in warmth level of lower extremities. Doppler monophasic/biphasic waveforms PT/DP on left and unobtainable on right. GI: COMMON NORMALS: Soft to palpation PALPATION: Yes Soft to palpation and No Tenderness to palpation present (GI) PERCUSSION: normal to percussion Extremity: GENERAL: Yes normal exam except as noted and No edema Neuro: COMMON NORMALS: moves all extremities SENSORIUM/ORIENTATION: Yes alert and No Orientation impaired OTHER: Motor intact/sensory intact right lower extremity Psych: COMMON NORMALS: mental status grossly normal and Normal thought process present THOUGHT PROCESS: Normal thought process present Course ED course: - Patient was seen and evaluated by me at bedside - Patient placed on cardiac monitors, IV access obtained - Initial evaluation notable for exam as above - Ultrasound ordered stat - Labs notable for no leukocytosis, lactate normal. - Imaging notable for total occlusion of graft and ak chin vessels resulting in limb ischemia. Unfortunately there was a delay in me receiving this result as apparently space and [employer] spacelift told the ED physician however he could not tell me and I did not learn the results until I follow-up for formal read and was subsequently contacted by Dr. Petersen. - Upon serial reexamination after treatment the patient was similar - Based on patient history, evaluation, and testing as interpreted the most likely cause of the patient's condition is limb ischemia secondary to graft occlusion - The results of ED evaluation were discussed with the patient including plan for transfer for vascular surgery. - I discussed the case with Dr. Hyman at [facility] in [place], who performed his original surgery, who accepted the patient as a transfer for vascular intervention. The patient took his Eliquis this morning and Dr. Hyman did not wish for me to initiate heparin at this time. - Patient was transferred from the emergency department by EMS without further deterioration or significant events. Note: Click bubbles or prepopulated anderson in note writing are used for assistance with data collection and billing and are inherently more limited than narrative and other text portions of this note. Please use narrative for additional clinical history and defer to narrative/free test for any case of contradictory information. If information appears in only free text or click bubble it should be considered present or absent as reported. Please contact note script writer for clarifications of clinical information or contradictory information. MDM is a brief summary, contradictory or erroneous seeming information should be clarified and full note should be reviewed. Vital Signs: Vital signs: Vital Signs Temperature 98.1 F 11/09/21 13:07 Pulse Rate 88 11/09/21 17:29 Respiratory Rate 16 11/09/21 17:29 Blood Pressure 151/76 11/09/21 17:29 Pulse Oximetry 92 11/09/21 17:29 MDM - Extremity (Nontraumatic) Medical Decision Making 71-year-old gentleman with history femoropopliteal bypass presenting with onset of symptoms starting last night including paresthesias and initially severe pain though this is subsequently improved. Motor function intact on exam though no dopplerable signals unified and is subtle warmth difference noted on physical exam. Ultrasound notable for limb ischemia. Transferred emergently for further evaluation and treatment by vascular surgery at performing facility. Medical Records I reviewed the patient's medical records. Lab Data I reviewed the patient's lab results. : 11/09/21 12:50 11/09/21 12:50 Laboratory Results WBC 8.8 10^3/uL (4.0-10.0) 11/09/21 12:50 RBC 4.36 10^6/uL (4.1-5.3) 11/09/21 12:50 Hgb 12.7 g/dL (11.7-16.6) 11/09/21 12:50 Hct 39.2 % (42.0-52.0) L 11/09/21 12:50 MCV 89.9 fl (80-94) 11/09/21 12:50 MCH 29.1 pg (28.0-34.0) 11/09/21 12:50 MCHC 32.4 g/dL (30.0-36.0) 11/09/21 12:50 RDW 15.3 % (12.1-15.1) H 11/09/21 12:50 Plt Count 162 10^3/cmm (130-400) 11/09/21 12:50 MPV 10.2 fL (7.4-10.4) 11/09/21 12:50 Neut % (Auto) 79.2 % 11/09/21 12:50 Lymph % (Auto) 9.9 % 11/09/21 12:50 [place] % (Auto) 8.3 % 11/09/21 12:50 Eos % (Auto) 1.8 % 11/09/21 12:50 Baso % (Auto) 0.3 % 11/09/21 12:50 Neut # (Auto) 6.99 10^3/uL (1.8-7.7) 11/09/21 12:50 Lymph # (Auto) 0.9 10^3/uL (0.8-4.8) 11/09/21 12:50 [place] # (Auto) 0.7 10^3/uL (0.2-0.9) 11/09/21 12:50 Eos # (Auto) 0.2 10^3/uL (0.0-0.8) 11/09/21 12:50 Baso # (Auto) 0.0 10^3/uL (0.0-0.1) 11/09/21 12:50 Nucleated RBC % (auto) 0 % 11/09/21 12:50 Nucleated RBCs # 0.0 /100WBC 11/09/21 12:50 PT 15.70 SECONDS (12.1-14.9) H 11/09/21 12:50 INR 1.21 (0.8-1.2) H 11/09/21 12:50 APTT 29.5 SECONDS (23.9-36.7) 11/09/21 12:50 Sodium 139 mmol/L (136-145) 11/09/21 12:50 Potassium 4.4 mmol/L (3.5-5.1) 11/09/21 12:50 Chloride 104 mmol/L (98-107) 11/09/21 12:50 Carbon Dioxide 28 mmol/L (22-29) 11/09/21 12:50 Anion Gap 11.4 (5-19) 11/09/21 12:50 BUN 18 mg/dL (8-23) 11/09/21 12:50 Creatinine 0.9 mg/dL (0.7-1.2) 11/09/21 12:50 GFR Calculation Not Reportable 11/09/21 12:50 Glucose 98 mg/dL (65-115) 11/09/21 12:50 Calculated Osmolality 290 mOsm/kg (285-295) 11/09/21 12:50 Lactic Acid 1.2 mmol/L (0.5-2.2) 11/09/21 12:50 Calcium 8.4 mg/dL (8.5-10.5) L 11/09/21 12:50 Total Bilirubin 0.7 mg/dL (0.15-1.2) 11/09/21 12:50 AST 14 U/L (0-40) 11/09/21 12:50 ALT 9 U/L (0-41) 11/09/21 12:50 Alkaline Phosphatase 72 IU/L (40-130) 11/09/21 12:50 Total Protein 6.6 g/dL (6.6-8.7) 11/09/21 12:50 Albumin 4.2 g/dL (3.5-5.2) 11/09/21 12:50 Globulin 2.4 g/dL (1.3-4.6) 11/09/21 12:50 Critical Care Time Critical Care Time: Critical Care Time: Yes Total Critical Care Time: 40 Attestation: Due to a high probability of clinically significant, possibly life threatening deterioration, the patient required my highest level of attention and preparedness to intervene emergently and I personally spent this critical care time directly and personally managing the patient. This critical care time included obtaining a history; examining the patient; pulse oximetry; ordering and review of laboratory and imaging studies; arranging urgent treatment with development of a management plan; evaluation of patient's response to treatment; frequent reassessment; and, discussions with other providers as applicable. It was exclusive of separately billable procedures. Primary system involved is vascular Discharge Plan Discharge Patient Disposition: Xfer Short-Term Hosp Clinical Impression: Critical limb ischemia of right lower extremity with bypass graft Condition: Stable Prescriptions: No Action apixaban 5 mg tablet 5 mg PO BID@0800,2000 0RF levetiracetam 500 mg tablet 500 mg PO BID@ 0RF albuterol sulfate [ProAir HFA] 90 mcg/actuation HFA aerosol inhaler 1 inh inhalation QID PRN (Reason: Shortness Of Breath) 0RF diltiazem HCl 120 mg capsule,extended release 12 hr 120 mg PO Q12H 0RF Breztri Aerosphere 160-9-4.8 mcg/actuation HFA aerosol inhaler 2 inh inhalation BID Qty: 10.7 3RF cholecalciferol (vitamin D3) [Vitamin D3] 25 mcg (1,000 unit) Capsule 25 mcg PO DAILY Qty: 0 0RF Referrals: Jackie Kulkarni MD [Primary Care Provider] - Coding Level of Care Code ED Dust Control Engineer for Chg Fwd Exam Comprehensive
--- NOTE | 2021-11-09 12:35 | USCV_ITS ---
Kimo Hernandez Age: 71 Gender: M : 1950 Exam Date: 11/09/2021 12:52 Ordering Phys: Ant Gutierrez MD Technologist: TOMMIE [place] [facility] [place] Indication: RLE PAIN AND SWELLING H/O RIGHT BYPASS GRAFT [id number] AGO Risk Factors: Previous Vascular Surgery: RIGHT LEFT BP: 120.0 / BP: / 0 Waveform Velocity (cm/s) Velocity (cm/s) Waveform Monophasic 37.5 Iliac Prox Monophasic 29.4 Iliac Mid Monophasic 24.4 Iliac Distal Monophasic 26.9 LEATHER REPAIRER N/A SFA Prox N/A SFA Mid N/A SFA Dist N/A POP N/A LEATHER SEASONER N/A DPA FINDINGS NO FLOW SEEN FROM SPA PROX-DPA. NO FLOW SEEN IN FEM-POP GRAFT Low velocity monophasic Doppler waveform in the iliac and common femoral artery on the right side Normal Doppler flow signals in the superficial femoral, popliteal and infrapopliteal vessels on the right side Low velocity monophasic Doppler waveform at the proximal end of the femoral-popliteal bypass graft No Doppler flow signals in the body of the bypass graft CONCLUSIONS 1. Features of total occlusion at the level of the proximal superficial femoral artery on the right side with a no flow signals distally in the femoral, popliteal or infrapopliteal vessels. 2. Features of sluggish flow at the proximal anastomotic site of the femoropopliteal bypass graft on the right side with no flow signals in the rest of the bypass graft. Compared to the study from 11/26/2020, occlusion of the superficial femoral artery appears to be new. The bypass graft also appears to be new. No aneurysm is noted in the iliac artery at this time. Dr Andrew Petersen MD [facility] (Electronically Signed) Final Date: 09 Nov 2021 15:07 S
[2021-11-09 13:04] LABS: Basophils % 0.3 %; Eosinophils # 0.2 10^3/uL (0.0-0.8); Eosinophils % 1.8 %; Hematocrit 39.2 % (42.0-52.0); Hemoglobin 12.7 g/dL (11.7-16.6); Lymphocytes # 0.9 10^3/uL (0.8-4.8); Lymphocytes % 9.9 %; Mean Corpuscular HGB Conc 32.4 g/dL (30.0-36.0); Mean Corpuscular Hemoglobin 29.1 pg (28.0-34.0); Mean Corpuscular Volume 89.9 fl (80-94); Mean Platelet Volume 10.2 fL (7.4-10.4); Monocytes # 0.7 10^3/uL (0.2-0.9); Monocytes % 8.3 %; Neutrophils # 6.99 10^3/uL (1.8-7.7); Neutrophils % 79.2 %; Nucleated Red Blood Cells % 0 %; Platelet Count 162 10^3/cmm (130-400); Red Blood Count 4.36 10^6/uL (4.1-5.3); Red Cell Distribution Width 15.3 % (12.1-15.1); White Blood Count 8.8 10^3/uL (4.0-10.0)
[2021-11-09 13:07] VITALS: BP 136/81; PULSE 68; RESP 18; TEMP 36.7; O2SAT 94
[2021-11-09 13:18] LABS: INR 1.21 (0.8-1.2)
[2021-11-09 13:19] LABS: Partial Thromboplastin Time 29.5 SECONDS (23.9-36.7)
[2021-11-09 13:25] LABS: Alanine Aminotransferase 9 U/L (0-41); Albumin Level 4.2 g/dL (3.5-5.2); Alkaline Phosphatase 72 IU/L (40-130); Anion Gap 11.4 (5-19); Aspartate Amino Transferase 14 U/L (0-40); Blood Urea Nitrogen 18 mg/dL (8-23); Calcium 8.4 mg/dL (8.5-10.5); Carbon Dioxide 28 mmol/L (22-29); Chloride 104 mmol/L (98-107); Globulin 2.4 g/dL (1.3-4.6); Glucose 98 mg/dL (65-115); Osmolality Calculated 290 mOsm/kg (285-295); Potassium 4.4 mmol/L (3.5-5.1); Sodium 139 mmol/L (136-145); Total Bilirubin 0.7 mg/dL (0.15-1.2); Total Protein 6.6 g/dL (6.6-8.7)
[2021-11-09 13:26] LABS: Lactic Sepsis W/Reflex 1.2 mmol/L (0.5-2.2)
[2021-11-09 15:37] VITALS: BP 161/59; PULSE 88; RESP 16; O2SAT 92
--- NOTE | 2021-11-09 16:01 | PC.NURSE ---
Report called to Radha Olsen in [place].
[2021-11-09] MEDS: morphine 4 mg/mL SDV 1 mL IVP (17:23)
[2021-11-09 17:29] VITALS: BP 151/76; PULSE 88; RESP 16; O2SAT 92
== END 2021-11-09 17:30 | disposition short-term general hospital (02) ==
PROVIDERS: Emergency Provider Emergency Medicine; PCP Family Medicine
DX: I70.321 Atherosclerosis of unspecified type of bypass graft(s) of the extremities with rest pain, right leg (principal); F17.210 Nicotine dependence, cigarettes, uncomplicated; Z98.890 Other specified postprocedural states
CPT/HCPCS: 80053; 83605; 85025; 85610; 85730; 93926; 96374; 99284; J2270

== ENCOUNTER → 2022-01-06 09:31 | Outpatient (BNVA) | payer OTHER, SELFPAY | PROVIDERS: PCP Family Medicine; Visit Provider Internal Medicine Pulmonary Disease | DX: R91.1 Solitary pulmonary nodule (principal); J43.2 Centrilobular emphysema; R06.02 Shortness of breath; G47.33 Obstructive sleep apnea (adult) (pediatric); Z71.6 Tobacco abuse counseling; Z78.9 Other specified health status; I10 Essential (primary) hypertension | CPT/HCPCS: 99214 ==

== ENCOUNTER 2022-01-07 08:00 | Outpatient (RCR) | payer OTHER, SELFPAY | END 2022-02-06 23:59 | disposition home or self-care (01) | LOC: PULRHB 08:00 | PROVIDERS: PCP Family Medicine; Visit Provider Internal Medicine Pulmonary Disease | DX: J44.9 Chronic obstructive pulmonary disease, unspecified (principal) | CPT/HCPCS: 94626 ==

== ENCOUNTER 2022-01-19 15:47 | Outpatient (CLI) | payer OTHER, SELFPAY ==
--- NOTE | 2022-01-19 16:00 | CT_ITS ---
WS: [id number] CT CHEST WITHOUT INTRAVENOUS CONTRAST HISTORY: f/u lung nodule TECHNIQUE: Contiguous 5 mm axial imaging performed on the thorax. Coronal and sagittal reformats are submitted. All CT scans at [facility] use at least one of these dose optimization techniques: automated exposure control; mA and/or kV adjustment per patient size (includes targeted exams where dose is matched to clinical indication); or iterative reconstruction. CONTRAST: None DLP: 816.32 mGy.cm COMPARISON: 06/02/2021 and 09/21/2021 Lungs and central airway: Chronic centrilobular emphysema. Mild pulmonary hyperexpansion. 7 mm nodule previously described in the LEFT upper lobe centrally is reidentified measuring approximately 8 mm. No change since 06/02/2021. There are a few additional scattered nodules were some 1 to 2 mm. The LEF T lower lobe nodules seen on the prior study is no longer present. No new nodule. No mass. There is s ignificant motion artifact from breathing identified. Pleura: Normal. No pleural effusion. Heart and pericardium: Mild cardiomegaly with moderate coronary artery atherosclerosis. Mediastinum and jesus: No new or enlarging lymph nodes are identified. Hilar regions are prominent but this is probably due to enlarged pulmonary arteries. Without IV contrast subtle changes in lymphaden opathy would be difficult to visualize. Vessels: Moderate atherosclerotic change within the thoracic aorta. Pulmonary artery is dilated to 3. 9 cm. Chest wall and lower neck: No soft tissue masses. Upper abdomen: Fluid and food distended stomach. No adrenal mass identified. Superior aspect of the e ndovascular graft is identified. Osseous structures: Moderate increase in the thoracic kyphosis. Multiple anterior osteoporotic type w edge shaped compression fractures are identified including T3, T4, T7, T8, T9, T10, T11 and T12. CT/CT chest wo con [id number] IMPRESSION: 1. No change in the largest nodule in the LEFT upper lobe measuring 8 mm. Stab le since 06/02/2021. Recommend continued 6-12 month follow-up for stability. Th e remaining very small nodules have either remained stable or resolved. 2. Pulmonary hypertension. 3. Chronic emphysema. 4. Moderate atherosclerosis aorta with moderate coronary artery calcifications . 5. Numerous thoracic spine compression fractures.
== END 2022-01-19 15:48 | disposition home or self-care (01) ==
LOC: RAD 15:49
PROVIDERS: PCP Family Medicine; Visit Provider Internal Medicine Pulmonary Disease
DX: R91.1 Solitary pulmonary nodule (principal)
CPT/HCPCS: 71250

== ENCOUNTER 2022-02-07 06:00 | Outpatient (RCR) | payer OTHER, SELFPAY | END 2022-03-09 23:59 | disposition home or self-care (01) | LOC: PULRHB 06:00 | PROVIDERS: PCP Family Medicine; Visit Provider Internal Medicine Pulmonary Disease | DX: J44.9 Chronic obstructive pulmonary disease, unspecified (principal) | CPT/HCPCS: 94626 ==

== ENCOUNTER 2022-03-10 06:00 | Outpatient (RCR) | payer OTHER, SELFPAY | END 2022-04-08 23:59 | disposition home or self-care (01) | LOC: PULRHB 06:00 | PROVIDERS: PCP Family Medicine; Visit Provider Internal Medicine Pulmonary Disease | DX: J44.9 Chronic obstructive pulmonary disease, unspecified (principal) | CPT/HCPCS: 94626 ==

== ENCOUNTER → 2022-04-04 10:38 | Outpatient (BNVA) | payer OTHER, SELFPAY | PROVIDERS: PCP Family Medicine; Visit Provider Nurse Practitioner Family | DX: I72.4 Aneurysm of artery of lower extremity (principal); I10 Essential (primary) hypertension; I48.19 Other persistent atrial fibrillation; Z87.891 Personal history of nicotine dependence; Z95.828 Presence of other vascular implants and grafts | CPT/HCPCS: 99214 ==

== ENCOUNTER → 2022-04-06 08:09 | Outpatient (BNVA) | payer OTHER, SELFPAY | PROVIDERS: PCP Family Medicine; Visit Provider Internal Medicine Pulmonary Disease | DX: R06.02 Shortness of breath (principal); R91.1 Solitary pulmonary nodule; J43.2 Centrilobular emphysema; G47.33 Obstructive sleep apnea (adult) (pediatric); Z87.891 Personal history of nicotine dependence; I48.91 Unspecified atrial fibrillation; I10 Essential (primary) hypertension; I73.9 Peripheral vascular disease, unspecified; E66.3 Overweight; Z68.31 Body mass index [BMI] 31.0-31.9, adult; Z87.898 Personal history of other specified conditions | CPT/HCPCS: 99214 ==

== ENCOUNTER 2022-04-09 06:00 | Outpatient (RCR) | payer OTHER, SELFPAY | END 2022-05-09 23:59 | disposition home or self-care (01) | LOC: PULRHB 06:00 | PROVIDERS: PCP Family Medicine; Visit Provider Internal Medicine Pulmonary Disease | DX: J44.9 Chronic obstructive pulmonary disease, unspecified (principal) | CPT/HCPCS: 94626 ==

== ENCOUNTER 2022-04-18 12:02 | Outpatient (CLI) | payer OTHER, SELFPAY ==
--- NOTE | 2022-04-18 12:15 | USCV_ITS ---
David Kimo Age: 71 Gender: M : 1950 Exam Date: 04/18/2022 12:25 Ordering Phys: Catherine Hurley Technologist: Lilibeth Pruett [place] [facility] [place]: slow capillary refill, mottling of legs Risk Factors: diabetes, smoker Previous Vascular Surgery: multiple arterial flow procedures- type and extremity unknown by patient RIGHT LEFT BP: 140.0 / 98.00 BP: 141.0/ 100.00 0 0 Waveform Velocity (cm/s) Velocity (cm/s) Waveform Biphasic 36.2 Iliac Prox 25.2 Biphasic Biphasic 32.6 Iliac Mid 24.4 Biphasic Monophasic 29.4 Iliac Distal 28.2 Biphasic Biphasic 28.8 HAMMER RUNNER 22.1 Biphasic Biphasic 47.5 SFA Prox 23.7 Monophasic Monophasic SFA Mid Monophasic 15.8 18.3 Monophasic 22.3 SFA Dist 66.5 N/A POP 35.7 Monophasic 20.4 SEARCH MANAGER 40.4 Monophasic 28.3 DPA 0.6 LUCRECIA FINDINGS Low flow state from right iliac to distal femoral artery. Right popliteal artery appears occluded with collateral flow in calf and weak pulses in right DPA and SEARCH MANAGER Left side sluggish flow with thrombus noted in popliteal artery. No flow found in left DPA. RT DPA- 148 RT SEARCH MANAGER- 100 Left SEARCH MANAGER > 220 - No LUCRECIA reported due to high pressure SEE TECH NOTES IN CV SYNAPSE Moderate diffuse plaques in the iliac and femoral arteries bilaterally Possible occluded femoropopliteal bypass graft on the left side CONCLUSIONS Abnormal resting LUCRECIA of 0.6 on the right side. Low velocity waveforms bilaterally in the iliac and femoral arteries, suggesting sluggish flow in these vessels The popliteal artery appears to be occluded on the right side with collateral filling of the infrapopliteal vessels Sluggish flow in the left popliteal artery with a possible thrombus. Features of total occlusion of the dorsalis pedis artery on the left side. Noncompressible vessels at the left ankle Possible proximal stump of a femoropopliteal bypass graft was visualized on the left side. The study is technically very limited. Consider peripheral angiogram /CTA of the peripheral arteries to better evaluate the arteries and possible bypass grafts. Comparison with the previous study is difficult because of the differences in technical quality. Dr Andrew Petersen MD [facility] (Electronically Signed) Final Date: 18 April 2022 20:07 S
== END 2022-04-18 12:03 | disposition home or self-care (01) ==
LOC: RAD 12:02
PROVIDERS: PCP Family Medicine; Visit Provider Nurse Practitioner Family
DX: I72.4 Aneurysm of artery of lower extremity (principal); Z95.828 Presence of other vascular implants and grafts
CPT/HCPCS: 93925

== ENCOUNTER → 2022-05-02 10:20 | Outpatient (BNVA) | payer OTHER, SELFPAY | PROVIDERS: PCP Family Medicine; Visit Provider Nurse Practitioner Family | DX: I73.9 Peripheral vascular disease, unspecified (principal) | CPT/HCPCS: 99213 ==

== ENCOUNTER 2022-05-12 11:35 | Outpatient (CLI) | payer OTHER, SELFPAY ==
--- NOTE | 2022-05-12 12:00 | CTR_ITS ---
PROCEDURE INFORMATION: Exam: CTA Abdominal Aorta and Bilateral Lower Extremities (Run-off) With Contrast Exam date and time: 05/12/2022 12:35 PM Age: 71 years old Clinical indication: Condition or disease; Other: Aneurysms; Prior surgery; Surgery type: Surgery--lt ing hernia repair, aneurysm filters; Additional info: Aneurysms. History-- aneurysms in iliacs * contrast stoppped in pelvis- did second delayed scan approx 13 sec later by the time the scanner caught up and repositioned TECHNIQUE: Imaging protocol: Computed tomographic angiography of the of the abdominal aorta, pelvis and bilateral lower extremities with contrast. 3D rendering (Not supervised by radiologist): MIP and/or 3D reconstructed images were created by the technologist. Radiation optimization: All CT scans at this facility use at least one of these dose optimization techniques: automated exposure control; mA and/or kV adjustment per patient size (includes targeted exams where dose is matched to clinical indication); or iterative reconstruction. Contrast material: OMNI 350; Contrast volume: 95 ml; Contrast route: INTRAVENOUS (IV); COMPARISON: CT angio abd aorta runof [id number] 02/08/2021 8:42 AM RADIATION DOSE METRICS: Total DLP (mGy-cm): 2030.52 FINDINGS: Aorta: Continued moderate to marked right convexity of the distal descending thoracic aorta. Continued extensive aortic atherosclerosis. Aortobi-iliac endograft still present. Apparent slow flow within the right limb of the endograft. No interval aortic aneurysm. Celiac trunk and mesenteric arteries: Continued mild stenosis in the proximal celiac artery. Still no significant stenosis in the SMA. Proximal SHANNON still not evident. Renal arteries: 2 left renal arteries again evident. No significant stenosis in the larger left renal artery. Continued [id number] stenosis of the proximal right renal artery. Right iliac arteries: Incomplete opacification of the stents in the right external iliac artery suspected to be technical in nature. Occlusion of the right internal iliac artery stent again apparent. Right femoral/popliteal arteries: Interval repair of the prominent aneurysm of the right common femoral artery and its bifurcation evidenced by interval scarring in the subcutaneous fat in the anterior right inguinal region and appearance of surgical clips along the vessels. Interval appearance of the stent extending from the distal right external iliac artery through the right common femoral artery and into the proximal right profunda femoral artery in addition to branching posterior to the stent previously seen to be patent in the proximal aspect of the [place] right superficial femoral artery. No opacification in the stents in the right inguinal region, most likely due to technical factors. No contrast in the stent in the proximal aspect of the [place] right superficial femoral artery or in the distal aspect of this artery. No contrast in the 2 cm popliteal artery aneurysm and apparent interval minimal decrease in its depth. Opacification of the right bypass graft positioned posterior to the [place] right superficial femoral artery extending from the proximal right thigh on image 1 of the delayed series down to its junction with a shorter patent stent extending to the distal right popliteal artery. Right infrapopliteal arteries: Opacification of the right anterior tibial artery into the distal right lower leg. At least moderate stenoses in the right tibioperoneal trunk. Suspicion of origin of the right posterior tibial artery from the distal right popliteal artery and opacification of this artery into the foot. Calcific plaque in the right peroneal artery, but apparent opacification of this artery into the ankle area. Left iliac arteries: Continued ectasia of the left limb of the endograft in the left common iliac artery. No significant change in the 3.1 cm aneurysm of the bifurcation of the left common iliac artery. Suspicion of synthetic tubes in the proximal left internal and external iliac arteries considering the atherosclerotic [place] parts of these vessels posterior to the patent parts of these arteries. No stenosis in the proximal left internal iliac artery or change in the 2.6 cm aneurysm of the distal left internal iliac artery. Continued surgical clips around the arteries in the left inguinal region. No apparent significant change in the approximately 2.6 cm aneurysm of the left common femoral artery. Patency of the left common femoral and profundal femoral arteries. No contrast in much of the proximal left superficial femoral artery, most likely technical in nature considering the opacification of the proximal aspect of this artery in the upper left thigh on image 1 of the delayed series. Left femoral/popliteal arteries: Continued extension of the bypass graft from the left superficial femoral artery in the mid thigh to the distal left popliteal artery. Patency of this graft evident on the delayed images. No contrast within much of the distal aspect of the [place] left superficial femoral artery, with areas of dilatation of this [place] artery still present. Continued backflow of contrast into the area of a 1.6 cm aneurysm of the distal left popliteal artery having no significant change in diameter. Continued backflow of contrast into the relatively long trilobar aneurysm of the distal left superficial femoral artery still having a depth of 2.3 cm in its proximal aspect and currently measuring 3.4 x 3.3 cm in its midportion representing interval minimal enlargement. No significant change in the distal part of the trilobar aneurysm measuring 2.9 x 2.8 cm. Left infrapopliteal arteries: Opacification of the left anterior tibial artery into the distal lower leg. Mild stenosis in the proximal aspect of the left tibioperoneal trunk. Possible occlusion of the left peroneal artery in the middle to distal left lower leg. Calcific plaque in the left posterior tibial artery with questionable extension of contrast through it into the foot. Lungs: Interval increase in the dependent stranding in the lung bases, likely due to atelectasis. Interval subsegmental atelectasis in each posterior sulcus as well. Liver: No interval liver disease. Gallbladder and bile ducts: Still no calcified gallstones or biliary ductal dilatation. Pancreas: Pancreas still unremarkable. Spleen: Still no splenomegaly. Adrenal glands: Still no adrenal mass. Kidneys and ureters: Still no hydronephrosis or apparent renal mass. Stomach and bowel: Nondistended stomach. Still no obstruction. Elongation of the sigmoid colon into the mid abdomen representing interval slight worsening. Continued moderate to marked sigmoid and distal descending diverticulosis. Appendix: Normal appendix. Tip of the appendix along the anterior margin of the gallbladder. Urinary bladder: No apparent mass. Reproductive: Continued prostatic prominence. Intraperitoneal space: Still no free air. Lymph nodes: No lymphadenopathy. Bones/joints: Developmental variant of 6 lumbar vertebral bodies still present. Old compression fractures again evident. Continued degeneration of multiple discs. No change in the minimal retrolisthesis at L2-L3 and L4-L5. Continued slight retrolisthesis at L5-6. Old right rib fracture again evident. Soft tissues: Continued slight scar in the lower anterior abdominal wall. Other findings detailed above. CT/CT angio abd aorta runof [id number] IMPRESSION: 1. Technically limited study. Numerous abnormalities of and prior interventions on the vascular system detailed above. Interval repair of the right common femoral artery aneurysm and placement of a bypass graft in the right thigh the most significant changes in the vascular system. Suspicion of interval minimal enlargement of the midportion of the trilobar aneurysm of the distal left superficial femoral artery; backflow contrast noted in 2 parts of the bypassed left superficial femoral artery. No significant change in the other aneurysms. 2. Multiple chronic abdominal and pelvic abnormalities and other findings detailed above.
[2022-05-12] MEDS: iohexol 350 mg/mL 100 mL Btl IV (16:44)
[2022-05-12 16:46] LABS: Blood Urea Nitrogen 18 mg/dL (8-23)
== END 2022-05-12 11:36 | disposition home or self-care (01) ==
LOC: RAD 11:36
PROVIDERS: PCP Family Medicine; Visit Provider Internal Medicine Cardiovascular Disease
DX: I72.3 Aneurysm of iliac artery (principal); I72.4 Aneurysm of artery of lower extremity; I71.20 Thoracic aortic aneurysm, without rupture, unspecified; M79.606 Pain in leg, unspecified; Z95.828 Presence of other vascular implants and grafts
CPT/HCPCS: 75635; 82565; 84520

== ENCOUNTER 2022-07-04 06:46 | Outpatient (CLI) | payer OTHER, SELFPAY ==
--- NOTE | 2022-07-04 07:00 | USCV_ITS ---
Kimo Hernandez Age: 72 Gender: M : 1950 Exam Date: 07/04/2022 07:08 Ordering Phys: Alex Moreau MD Technologist: TOMMIE Exam Location: [facility] [place] Indication: BILAT LEG EDEMA BP: 140 / 67 HR: 82 Rhythm: Sinus Technical Quality: Poor secondary to COPD MEASUREMENTS (Male / Female) Normal Values 2D ECHO LVOT Diameter 2.0 cm LV Ejection Fraction MOD 2C 65.9 % LV Ejection Fraction 2C AL 65.6 % LA Diameter 2.6 cm LA Width 3.2 cm LA Height 5.3 cm RA Width 3.0 cm RA Height 4.8 cm Aorta at Sinotubular Diameter 2.9 cm IVC Diameter 1.4 cm M-MODE Aortic Annulus Diameter 3.6 cm LA Ao Ratio MM 0.7 MV E Point Septal Separation 0.6 cm DOPPLER AV Peak Velocity 120.0 cm/s LVOT Peak Velocity 55.0 cm/s AV Area Cont Eq vti 1.4 cm squared AV Area Cont Eq pk 1.5 cm squared MV Peak Velocity 56.0 cm/s MV Area PHT 3.9 cm squared MV E' Velocity 46.0 cm/s Mitral E to MV E' Ratio 5.0 Mitral E to LV E' Lateral Ratio 4.6 Mitral E to LV E' Septal Ratio 5.5 TR Peak Velocity 342.0 cm/s TR Peak Gradient 46.8 mmHg TR Mean Velocity 259.4 cm/s TR Mean Gradient 27.3 mmHg TR Velocity Time Integral 87.5 cm TV Peak E Velocity 51.0 cm/s Right Atrial Pressure 3.0 mmHg Pulmonary Artery Systolic Pressu 49.8 mmHg FINDINGS Left Ventricle Flattened septum in systole consistent with right ventricle pressure overload. Normal left ventricular size and systolic function, EF 62 %. Right Ventricle Mildly increased right ventricular size. Normal right ventricular systolic function. Right Atrium Mildly increased right atrial size. Left Atrium Mildly increased left atrial size. Mitral Valve Thickened mitral valve. Aortic Valve Thickened aortic valve. Tricuspid Valve Mild tricuspid regurgitation. Estimated pulmonary artery peak systolic pressure of 50 mmHg and a mean gradient of 30 mmHg Pulmonic Valve Pulmonic valve not well visualized. Pericardium No pericardial effusion. Aorta Normal aortic annulus size. IVC Normal inferior vena cava. CONCLUSIONS Normal left ventricular size and systolic function, EF 62 %. Wall motion abnormality as mentioned above Mildly dilated right atrium and right ventricle. Mildly dilated left atrium Pulmonary hypertension by TR jet, estimated pulmonary artery peak systolic pressure 50 mmHg with a mean pressure of 30 mmHg. This could be an underestimation because of the poor Doppler signals MiMild tricuspid regurgitation. Minimally thickened aortic and mitral valves.. There is no pericardial effusion. There are no intracardiac masses. Comparison with the previous study is difficult because of the difference in the technical quality. Dr Andrew Petersen MD [facility] (Electronically Signed) Final Date: 05 July 2022 17:51 S
== END 2022-07-04 06:47 | disposition home or self-care (01) ==
PROVIDERS: PCP Family Medicine; Visit Provider Internal Medicine Pulmonary Disease
DX: R60.0 Localized edema (principal); I27.20 Pulmonary hypertension, unspecified; I08.3 Combined rheumatic disorders of mitral, aortic and tricuspid valves
CPT/HCPCS: 93306

== ENCOUNTER 2022-07-21 15:21 | Outpatient (CLI) | payer OTHER, SELFPAY ==
[2022-07-21 16:50] LABS: Anion Gap 14.3 (5-19); Blood Urea Nitrogen 22 mg/dL (8-23); Calcium 10.6 mg/dL (8.5-10.5); Carbon Dioxide 31 mmol/L (22-29); Chloride 101 mmol/L (98-107); Glucose 90 mg/dL (65-115); NT Pro B Type Natriuretic Pept 654 pg/mL (0-125); Osmolality Calculated 297 mOsm/kg (285-295); Potassium 4.3 mmol/L (3.5-5.1); Sodium 142 mmol/L (136-145)
== END 2022-07-21 15:22 | disposition home or self-care (01) ==
LOC: LAB 15:23
PROVIDERS: PCP Family Medicine; Visit Provider Internal Medicine Pulmonary Disease
DX: T88.7XXA Unspecified adverse effect of drug or medicament, initial encounter (principal); T50.2X5A Adverse effect of carbonic-anhydrase inhibitors, benzothiadiazides and other diuretics, initial encounter
CPT/HCPCS: 36415; 80048; 83735; 83880

== ENCOUNTER 2022-08-17 14:08 | Outpatient (CLI) | payer OTHER, SELFPAY ==
--- NOTE | 2022-08-17 14:30 | CT_ITS ---
WS: [id number] CT CHEST TECHNIQUE: Noncontrast CT of the chest with coronal and sagittal reformatted images. CLINICAL INFORMATION: 6 month f/u lung nodules COMPARISON: CT January 19, 2022 DLP: 480.[address] scans at [facility] use at least one of these dose optimization techniques: automated e xposure control; mA and/or kV adjustment per patient size (includes targeted exams where dose is matc hed to clinical indication); or iterative reconstruction. FINDINGS: Previously described 8 mm nodule LEFT upper lobe along the hilum is unchanged in appearance . Additional tiny subcentimeter nodules unchanged. Moderate chronic emphysematous changes. No acute pulmonary infiltrates. Prominent pulmonary arteries can be seen with pulmonary arterial hypertension. Aortic calcification. Normal caliber thoracic aorta. Coronary calcification. No mediastinal or hilar lymphadenopathy. No axillary lymphadenopathy. Multiple chronic compression fractures in the mid and l ower thoracic spine similar in appearance to previous. Small esophageal hiatal hernia. Adrenal glands are normal. CT/CT chest wo con [id number] IMPRESSION: 1. Stable 8 mm LEFT upper lobe pulmonary nodule along the LEFT hilum. Recommen d 12 month follow-up. 2. Scattered tiny subcentimeter nodules are unchanged. 3. Moderate chronic emphysematous changes. 4. Enlarged pulmonary arteries can be seen with pulmonary arterial hypertensio n unchanged. 5. Chronic emphysematous changes. 6. Stable thoracic spine compression fractures in the mid and lower thoracic s pine.
== END 2022-08-17 14:09 | disposition home or self-care (01) ==
LOC: RAD 14:09
PROVIDERS: PCP Family Medicine; Visit Provider Internal Medicine Pulmonary Disease
DX: I48.19 Other persistent atrial fibrillation (principal); R06.02 Shortness of breath; Z95.828 Presence of other vascular implants and grafts; I72.3 Aneurysm of iliac artery; G47.33 Obstructive sleep apnea (adult) (pediatric); Z87.891 Personal history of nicotine dependence
CPT/HCPCS: 71250; 99214

== ENCOUNTER → 2022-09-05 13:15 | Outpatient (BNVA) | payer OTHER, SELFPAY | PROVIDERS: PCP Family Medicine; Visit Provider Internal Medicine Pulmonary Disease | DX: R06.02 Shortness of breath (principal); J43.2 Centrilobular emphysema; G47.33 Obstructive sleep apnea (adult) (pediatric); B37.0 Candidal stomatitis; R91.8 Other nonspecific abnormal finding of lung field; I73.9 Peripheral vascular disease, unspecified; Z87.891 Personal history of nicotine dependence; R06.09 Other forms of dyspnea; I48.91 Unspecified atrial fibrillation; Z79.01 Long term (current) use of anticoagulants; Z87.898 Personal history of other specified conditions; Z99.81 Dependence on supplemental oxygen; Z98.890 Other specified postprocedural states | CPT/HCPCS: 99214 ==

== ENCOUNTER 2022-09-07 02:44 | Emergency (ER) | payer OTHER, SELFPAY ==
[2022-09-07 02:48] VITALS: BP 149/80; PULSE 96; RESP 16; TEMP 36.4; O2SAT 89; BMI 32.5
--- NOTE | 2022-09-07 03:02 | USR_ITS ---
PROCEDURE INFORMATION: Exam: US Duplex Right Lower Extremity Arteries Or Arterial Bypass Grafts Exam date and time: 09/07/2022 3:16 AM Age: 72 years old Clinical indication: Leg, lower; Prior surgery; Surgery date: 6+ months; Surgery type: 2009 inferior aorta + bilateral cias probable graft. Patient is unsure. Calls it aaa repair. 2021 stenting, revascularization at RT hip and RT knee levels. Patient HX: Right leg pain x 2 days TECHNIQUE: Imaging protocol: Right Real-time duplex scan of the arteries or arterial bypass grafts of the right lower extremity with 2-D munguia scale, color Doppler flow and spectral waveform analysis. Images documented and saved. COMPARISON: CT angio abd aorta runof [id number] 05/12/2022 12:35 PM FINDINGS: Right external iliac artery: There is no flow seen in the right external iliac artery. A right common iliac artery graft is present and appears occluded. Right common femoral artery: No flow identified. Right superficial femoral artery: No flow identified. Right popliteal artery: No flow identified. Right calf/foot arteries: No flow identified. Other arteries: Flow is present in the abdominal aorta. The left common iliac artery is patent/stented with dampened monophasic flow. Soft tissues: No hematoma or collection. US/[place] [id number] IMPRESSION: 1. Severe, diffuse right leg arterial occlusions are seen, including the right common and external iliac arteries. Advise emergent vascular consultation. 2. Right common/internal iliac artery stent extensive occlusion. THIS REPORT CONTAINS FINDINGS THAT MAY BE CRITICAL TO PATIENT CARE. The findings were verbally communicated via telephone conference at 5:03 AM [employer] [facility] on 09/07/2022 with ANTIONETTE SPRINGER. The findings were acknowledged and understood.
--- NOTE | 2022-09-07 03:03 | ED_ITS ---
HPI - Extremity Problem General: Chief complaint: Extremity Problem,Nontraumatic Stated complaint: Right leg pain Time Seen by Provider: 09/07/22 02:46 Source: patient Mode of arrival: ambulatory Limitations: no limitations History of Present Illness: 72-year-old male has a history of peripheral vascular disease he has had a bypass graft and stent placed to his right leg in the past. States yesterday he is noticing some calf pain with walking he states he woke up melanite with worsening acute pain and noticed his foot was cold to touch. He rates his pain a 5 out of 10 denies any injury denies any fever denies any improving factors Associated symptoms: Deny chest pain, fever(s) or rash Review of Systems Const: Denies: fever(s), chills, body aches or change in appetite Eyes: Denies: blurry vision or eye discomfort ENMT: Denies: throat pain or dental pain Card: Denies: chest pain Resp: Denies: dyspnea GI: Denies: abdominal pain, nausea, vomiting or diarrhea : Denies: dysuria Musc: Reports: extremity pain Skin/Breast: Denies: rash Neuro: Denies: headache(s) Psych: Denies: depression Alpesh/Lymph: Denies: easy bruising All/Imm: Denies: urticaria PFSH ED PFSH: Medical History A-fib Benign essential HTN COPD (chronic obstructive pulmonary disease) Depression Dyspnea on exertion Hx of seizure disorder Iliac artery aneurysm, bilateral DA (obstructive sleep apnea) Peripheral arterial disease Popliteal artery aneurysm Sleep apnea in adult Spinal stenosis Tinnitus Surgical History History of AAA (abdominal aortic aneurysm) repair 2010 History of colonoscopy with polypectomy 2018 History of left inguinal hernia repair 2016 History of PTCA History of vascular surgery rt and left leg 2019 S/P hernia repair incisional Family History Mother Cancer Diabetes Father CAD (coronary artery disease) Cancer Chronic kidney disease (CKD) Diabetes Brother No problems noted. Sister No problems noted. Grandfather Lung disease Denies family history of Clotting disorder Dementia Suicide Anesthesia complication Bleeding disorder Stroke Social History Smoking and tobacco status: former smoker Alcohol intake: never Physical Exam Const: COMMON NORMALS: patient oriented x3 HENMT: COMMON NORMALS: normocephalic and atraumatic HEAD & SCALP: normocephalic and atraumatic Eye: COMMON NORMALS: Equal, round and reactive pupils present and EOMs intact bilaterally PUPIL: Yes Equal, round and reactive pupils present Neck/C-Spine: COMMON NORMALS: full ROM and supple Chest: COMMONS NORMALS: normal inspection of the chest and normal palpation of entire chest wall Resp: COMMON NORMALS: normal respiratory effort, No retractions, No use of accessory muscles and clear to auscultation bilaterally AUSCULTATION: clear t o auscultation bilaterally Cardio: COMMON NORMALS: regular rate, regular rhythm and No murmurs present (Cardio) RATE: regular rate RHYTHM: regular rhythm GI: COMMON NORMALS: Normal to inspection, nondistended, normoactive bowel sounds present, Soft to palpation, non-tender and no masses PALPATION: Yes Soft to palpation Extremity: NARRATIVE EXTREMITY EXAM: Right foot is cold to touch pulses are not palpable at this time Neuro: COMMON NORMALS: patient oriented x3, moves all extremities and no focal motor deficits Psych: COMMON NORMALS: mental status grossly normal, Normal thought process present and cooperative THOUGHT PROCESS: Normal thought process present Skin: COMMON NORMALS: no rashes or lesions noted and no wounds GENERAL SKIN EXAM: no rashes or lesions noted Course Vital Signs: Vital signs: Vital Signs Temperature 97.6 F 09/07/22 02:48 Pulse Rate 68 09/07/22 04:20 Respiratory Rate 16 09/07/22 04:20 Blood Pressure 111/86 09/07/22 04:20 Pulse Oximetry 98 09/07/22 04:20 Oxygen Delivery Me thod 09/07/22 04:20 Oxygen Flow Rate 2 09/07/22 04:20 MDM - Extremity (Nontraumatic) Medical Decision Making Patient presents here with acute right leg pain his leg is cold to touch ultrasound showed no flow past the common femoral consistent with an ischemic limb I spoke to vascular surgeon at [facility] actually done his graft a year ago and he is excepting patient patient started on heparin we will transfer there for higher level of care with vascular surgery. Lab Data 09/07/22 03:07 09/07/22 03:07 Laboratory Results WBC 8.8 10^3/uL (4.0-10.0) 09/07/22 03:07 RBC 4.89 10^6/uL (4.1-5.3) 09/07/22 03:07 Hgb 14.2 g/dL (11.7-16.6) 09/07/22 03:07 Hct 44.7 % (42.0-52.0) 09/07/22 03:07 MCV 91.4 fl (80-94) 09/07/22 03:07 MCH 29.0 pg (28.0-34.0) 09/07/22 03:07 MCHC 31.8 g/dL (30.0-36.0) 09/07/22 03:07 RDW 14.0 % (12.1-15.1) 09/07/22 03:07 Plt Count 201 10^3/cmm (130-400) 09/07/22 03:07 MPV 10.4 fL (7.4-10.4) 09/07/22 03:07 Neut % (Auto) 67.5 % 09/07/22 03:07 Lymph % (Auto) 19.8 % 09/07/22 03:07 Loving % (Auto) 8.7 % 09/07/22 03:07 Eos % (Auto) 2.7 % 09/07/22 03:07 Baso % (Auto) 0.8 % 09/07/22 03:07 Neut # (Auto) 5.91 10^3/uL (1.8-7.7) 09/07/22 03:07 Lymph # (Auto) 1.7 10^3/uL (0.8-4.8) 09/07/22 03:07 Loving # (Auto) 0.8 10^3/uL (0.2-0.9) 09/07/22 03:07 Eos # (Auto) 0.2 10^3/uL (0.0-0.8) 09/07/22 03:07 Baso # (Auto) 0.1 10^3/uL (0.0-0.1) 09/07/22 03:07 Nucleated RBC % (auto) 0 % 09/07/22 03:07 Nucleated RBCs # 0.0 /100WBC 09/07/22 03:07 PT 17.30 SECONDS (12.1-14.9) H 09/07/22 03:07 INR 1.37 (0.8-1.2) H 09/07/22 03:07 Sodium 139 mmol/L (136-145) 09/07/22 03:07 Potassium 4.1 mmol/L (3.5-5.1) 09/07/22 03:07 Chloride 100 mmol/L (98-107) 09/07/22 03:07 Carbon Dioxide 31 mmol/L (22-29) H 09/07/22 03:07 Anion Gap 12.1 (5-19) 09/07/22 03:07 BUN 15 mg/dL (8-23) 09/07/22 03:07 Creatinine 0.8 mg/dL (0.7-1.2) 09/07/22 03:07 GFR Calculation Not Reportable 09/07/22 03:07 Glucose 102 mg/dL (65-115) 09/07/22 03:07 Calculated Osmolality 289 mOsm/kg (285-295) 09/07/22 03:07 Calcium 9.5 mg/dL (8.5-10.5) 09/07/22 03:07 Total Bilirubin 0.7 mg/dL (0.15-1.2) 09/07/22 03:07 AST 14 U/L (0-40) 09/07/22 03:07 ALT 9 U/L (0-41) 09/07/22 03:07 Alkaline Phosphatase 68 U/L (40-130) 09/07/22 03:07 Total Protein 7.3 g/dL (6.6-8.7) 09/07/22 03:07 Albumin 4.1 g/dL (3.5-5.2) 09/07/22 03:07 Globulin 3.2 g/dL (1.3-4.6) 09/07/22 03:07 Critical Care Time Critical Care Time: Critical Care Time: Yes Total Critical Care Time: 40 Attestation: The high probability of a clinically significant, sudden or life threatening deterioration of the patient's vascular system(s) required my full and direct attention, intervention and personal management. The critical care time is as shown. This time is in addition to time spent performing any reported procedures but includes the following: [x] Data and vital sign review and interpretation [x] Patient assessment, examination and intervention [x] Documentation [x] Medication orders and management Discharge Plan Discharge Patient Disposition: Xfer Short-Term Hosp Clinical Impression: Ischemia of right lower extremity Condition: Stable Referrals: Jackie Kulkarni MD [Primary Care Provider] - Coding Level of Care Code ED Straight Cutter Machine for [facility]
[2022-09-07] MEDS: morphine 4 mg/mL SDV 1 mL IVP (03:15)
[2022-09-07] MEDS: ondansetron 2 mg/ML SDV 2 mL 4 MG IVP (03:15)
[2022-09-07 03:17] LABS: Basophils # 0.1 10^3/uL (0.0-0.1); Basophils % 0.8 %; Eosinophils # 0.2 10^3/uL (0.0-0.8); Eosinophils % 2.7 %; Hematocrit 44.7 % (42.0-52.0); Hemoglobin 14.2 g/dL (11.7-16.6); Lymphocytes # 1.7 10^3/uL (0.8-4.8); Lymphocytes % 19.8 %; Mean Corpuscular HGB Conc 31.8 g/dL (30.0-36.0); Mean Corpuscular Volume 91.4 fl (80-94); Mean Platelet Volume 10.4 fL (7.4-10.4); Monocytes # 0.8 10^3/uL (0.2-0.9); Monocytes % 8.7 %; Neutrophils # 5.91 10^3/uL (1.8-7.7); Neutrophils % 67.5 %; Nucleated Red Blood Cells % 0 %; Platelet Count 201 10^3/cmm (130-400); Red Blood Count 4.89 10^6/uL (4.1-5.3); White Blood Count 8.8 10^3/uL (4.0-10.0)
[2022-09-07 03:32] LABS: INR 1.37 (0.8-1.2)
[2022-09-07 03:44] LABS: Alanine Aminotransferase 9 U/L (0-41); Albumin Level 4.1 g/dL (3.5-5.2); Alkaline Phosphatase 68 U/L (40-130); Anion Gap 12.1 (5-19); Aspartate Amino Transferase 14 U/L (0-40); Blood Urea Nitrogen 15 mg/dL (8-23); Calcium 9.5 mg/dL (8.5-10.5); Carbon Dioxide 31 mmol/L (22-29); Chloride 100 mmol/L (98-107); Globulin 3.2 g/dL (1.3-4.6); Glucose 102 mg/dL (65-115); Osmolality Calculated 289 mOsm/kg (285-295); Potassium 4.1 mmol/L (3.5-5.1); Sodium 139 mmol/L (136-145); Total Bilirubin 0.7 mg/dL (0.15-1.2); Total Protein 7.3 g/dL (6.6-8.7)
[2022-09-07] MEDS: heparin 5,000 unit/mL INJ 1 mL 4000 UNIT IVP (04:11)
[2022-09-07 04:20] VITALS: BP 111/86; PULSE 68; RESP 16; O2SAT 98
[2022-09-07] MEDS: heparin drip 25,000 UNIT/500 ML PREMIX 23.95 UNIT IV (04:37)
[2022-09-07 05:01] VITALS: BP 125/86; PULSE 74; RESP 21; O2SAT 95
== END 2022-09-07 05:26 | disposition short-term general hospital (02) ==
PROVIDERS: Emergency Provider Emergency Medicine; PCP Family Medicine
DX: I70.221 Atherosclerosis of native arteries of extremities with rest pain, right leg (principal)
CPT/HCPCS: 80053; 85025; 85610; 93926; 96374; 96375; 99285; J1644; J2270; J2405

== ENCOUNTER 2022-09-29 06:43 | Outpatient (CLI) | payer OTHER, SELFPAY ==
--- NOTE | 2022-09-29 | ECG_ITS ---
[facility] Test Date: 2022-09-29 Pat Name: Kimo Hernandez Department: Room: Gender: Male Tallow Maker: Destinee Francisco : 1950 Requested By: Alex Frances Order Number: [id number] Ben MD: Casa Baig M.D. Interpretive Statements NAME OF STUDY: LEXISCAN SESTAMIBI STRESS TEST INDICATION: [PAD, AAA, ] Procedure: At the baseline, the blood pressure was 111/88 mmHg with a heart rate of 114 bpm. The electrocardiogram showed atrial fibrillation with RVR, normal axis with normal ST and T's. The Lexiscan was infused over a period of 20 seconds. A total of 0.4 mg of Lexiscan was infused. The stress phase was continued for a total of 5 minutes. Heart rate was at the end of stress phase was 123 bpm and a blood pressure of 123/88 mmHg. The EKG at the peak infusion revealed atrial fibrillation with RVR. Sestamibi was injected 20 seconds after the Lexiscan infusion. Blood pressure at the end of recovery phase was 123/87mmHg with a heart rate of 120 bpm. Conclusion: 1. Normal EKG response to Lexiscan infusion 2. No Lexiscan induced chest pain or cardiac arrhythmia. 3. Normal blood pressure and heart rate response. 4. Sestamibi/sestamibi perfusion scan pending; see separate report Electronically Signed On 10-13-2022 12:13:38 CDT by Casa Baig M.D. [email or web address]
[2022-09-29 07:28] VITALS: BMI 31.0
--- NOTE | 2022-09-29 07:31 | NMCV_ITS ---
NM shun perf SPECT r/s* [id number] DavidKimo Age: 72 Gender: M : 1950 Exam Date: 09/29/2022 07:31 Ordering Phys: Alex Moreau MD Technologist: LILLIE Ricketts Exam Location: [facility] Indications: SHORTNESS OF BREATH, PERIPHERAL VASCULAR DISEASE; NICOTINE DEPENDENCE STRESS TEST Please see [facility] for full findings IMAGE PROTOCOL Rest/Stress 1 Lexiscan Day Radiopharmaceutical Dose (mCi) Administration Site Administered by Rest: Tc-99m 10.6 IV LILLIE Ferris Sestamibi Stress:Tc-99m 32.9 IV LILLIE Ferris Sestamibi Rest: 29-Sep-2022 60 Discovery 630 Stress: 29-Sep-2022 30 Discovery 630 0.4mg Lexiscan. Supine position only as patient was unable to lay prone. SPECT RESULTS Technical Quality: Excellent Raw Data Analysis: Normal Image Corrections: No attenuation or motion correction applied Summed Stress Score: 0 Summed Rest Score: 0 Summed Difference Score: 0 PERFUSION FINDINGS SPECT images demonstrate homogeneous tracer distribution throughout the myocardium. FUNCTIONAL RESULTS (calculated via Gated SPECT) Stress Image LV EF (%): 64 Stress EDV (mL):101 TID: 1.12 Stress ESV (mL):36 FUNCTIONAL FINDINGS: There is normal left ventricular systolic function. IMPRESSIONS 1. Normal myocardial perfusion imaging with no evidence of ischemia 2. LV systolic fucntion is normal Casa Baig MD (Electronically Signed) Final Date: 02 October 2022 08:26 S
[2022-09-29] MEDS: regadenoson 0.4 Mg/5 ml Syringe IVP (08:47)
--- NOTE | 2022-09-29 08:52 | PC.NURSE ---
Stress test note Lexiscan stress completed. Pt has Afib, after adminof lexiscan HR is consistent with 115-128. Pt reports not taking cardizem this am. Dr. Baig notified and received verbal orders for 5mg IV metoprolol. BP 125/69.
[2022-09-29] MEDS: metoprolol tartrate 1 mg/1 mL SDV 5 mL 5 MG IVP (08:59)
[2022-09-29 09:01] VITALS: BP 123/87; PULSE 96
== END 2022-09-29 06:44 | disposition home or self-care (01) ==
LOC: CDL 06:45
PROVIDERS: PCP Family Medicine; Visit Provider Internal Medicine Pulmonary Disease
DX: R06.02 Shortness of breath (principal); I73.9 Peripheral vascular disease, unspecified; F17.210 Nicotine dependence, cigarettes, uncomplicated
CPT/HCPCS: 36415; 78452; 93017; 96374; 96375; A9500; J2785; J3490

== ENCOUNTER 2022-10-04 14:24 | Emergency (ER) | payer OTHER, SELFPAY ==
[2022-10-04 14:39] VITALS: BP 139/91; PULSE 62; RESP 17; TEMP 36.4; O2SAT 96; BMI 31.1
--- NOTE | 2022-10-04 15:50 | XRR_ITS ---
PROCEDURE INFORMATION: Exam: XR Chest Exam date and time: 10/04/2022 4:08 PM Age: 72 years old Clinical indication: Shortness of breath; Additional info: SOB TECHNIQUE: Imaging protocol: Radiologic exam of the chest. Views: 1 view. COMPARISON: CT chest con [id number] 08/17/2022 2:19 PM FINDINGS: Lungs: Unremarkable. No consolidation. Pleural spaces: Unremarkable. No pleural effusion. No pneumothorax. Heart/Mediastinum: Unremarkable. No cardiomegaly. Bones/joints: Unremarkable for age. XR/XR chest 1V portable [id number] IMPRESSION: Negative chest
[2022-10-04 16:23] VITALS: BP 120/84; PULSE 98; TEMP 37.3; O2SAT 94
[2022-10-04 16:54] LABS: Basophils # 0.1 10^3/uL (0.0-0.1); Basophils % 0.6 %; Eosinophils # 0.3 10^3/uL (0.0-0.8); Eosinophils % 2.6 %; Hemoglobin 13.2 g/dL (11.7-16.6); Lymphocytes % 10.1 %; Mean Corpuscular HGB Conc 30.7 g/dL (30.0-36.0); Mean Corpuscular Hemoglobin 29.1 pg (28.0-34.0); Mean Corpuscular Volume 94.7 fl (80-94); Mean Platelet Volume 10.5 fL (7.4-10.4); Monocytes # 0.7 10^3/uL (0.2-0.9); Monocytes % 7.4 %; Neutrophils # 7.68 10^3/uL (1.8-7.7); Nucleated Red Blood Cells % 0 %; Platelet Count 209 10^3/cmm (130-400); Red Blood Count 4.54 10^6/uL (4.1-5.3); Red Cell Distribution Width 16.4 % (12.1-15.1); White Blood Count 9.7 10^3/uL (4.0-10.0)
[2022-10-04 17:26] LABS: INR 1.35 (0.8-1.2)
[2022-10-04 17:27] LABS: Partial Thromboplastin Time 28.4 SECONDS (23.9-36.7)
[2022-10-04 17:42] LABS: Alanine Aminotransferase 9 U/L (0-41); Albumin Level 4.5 g/dL (3.5-5.2); Alkaline Phosphatase 74 U/L (40-130); Anion Gap 15.5 (5-19); Aspartate Amino Transferase 14 U/L (0-40); Blood Urea Nitrogen 14 mg/dL (8-23); Calcium 9.4 mg/dL (8.5-10.5); Carbon Dioxide 34 mmol/L (22-29); Chloride 96 mmol/L (98-107); Globulin 2.9 g/dL (1.3-4.6); Glucose 112 mg/dL (65-115); NT Pro B Type Natriuretic Pept 640 pg/mL (0-125); Osmolality Calculated 293 mOsm/kg (285-295); Potassium 4.5 mmol/L (3.5-5.1); Sodium 141 mmol/L (136-145); Total Bilirubin 0.8 mg/dL (0.15-1.2); Total Protein 7.4 g/dL (6.6-8.7)
--- NOTE | 2022-10-04 20:40 | ED_ITS ---
HPI - GI Bleed General: Chief complaint: GI Bleed Stated complaint: Black Stool Time Seen by Provider: 10/04/22 19:50 Source: patient and family Mode of arrival: ambulatory Limitations: no limitations History of Present Illness: This patient presented to the emergency department because he is concerned about having black stools and whether that represents gastrointestinal hemorrhage or what it might represent. He states he was told a couple weeks ago at the [facility] that he had low iron and was started on iron pills. He states that he had a black stool today and that concerned him and therefore he made his way to the emergency department. He denies any other associated symptoms such as presyncope chest pain etc. He states that he takes Eliquis because of atrial fibrillation. He has not had any bright red blood in his stool, blood in his urine, other bleeding related issues. He has had a long standing history of cardiovascular disease. He has had a prior aortic aneurysmal repair, femoral bypass. He denies any history of heart attack or heart failure but does have a history of atrial fibrillation. Associated symptoms: Reports no associated symptoms and easy bruising; Denies abdominal pain, chills, fever(s), headache(s), nausea, rash, syncope or vomiting Review of Systems Const: Denies: fever(s) or chills Eyes: Denies: change in vision ENMT: Denies: throat pain or odynophagia Card: Reports: irregular heart rhythm; Denies: chest pain, palpitations, edema, syncope or pre-syncope Resp: Reports: wheezing (Chronically); Denies: dyspnea, productive cough or non-productive cough GI: Reports: change in bowel habits and melena; Denies: abdominal pain, nausea, vomiting or hematemesis : Denies: flank pain, difficulty urinating or dysuria Musc: Denies: neck pain, back pain, extremity pain or extremity swelling Skin/Breast: Denies: rash or pruritus Neuro: Denies: headache(s), numbness in extremities or weakness in extremities Psych: Denies: anxiety Alpesh/Lymph: Reports: easy bruising; Denies: easy bleeding, petechiae or purpura [facility] ED PFSH: Medical History A-fib Benign essential HTN COPD (chronic obstructive pulmonary disease) Depression Dyspnea on exertion Hx of seizure disorder Iliac artery aneurysm, bilateral DA (obstructive sleep apnea) Peripheral arterial disease Popliteal artery aneurysm Sleep apnea in adult Spinal stenosis Tinnitus Surgical History History of AAA (abdominal aortic aneurysm) repair 2009 History of colonoscopy with polypectomy 2018 History of left inguinal hernia repair 2016 History of PTCA History of vascular surgery rt and left leg 2019 S/P hernia repair incisional Family History Mother Cancer Diabetes Father CAD (coronary artery disease) Cancer Chronic kidney disease (CKD) Diabetes Brother No problems noted. Sister No problems noted. Grandfather Lung disease Denies family history of Clotting disorder Dementia Suicide Anesthesia complication Bleeding disorder Stroke Social History Smoking and tobacco status: former smoker Alcohol intake: never Physical Exam Narrative: EXAM NARRATIVE: The patient appears to be comfortable in no acute distress answers questions in a goal-directed fashion. Const: COMMON NORMALS: no acute distress, patient oriented x3 and alert GENERAL APPEARANCE: cooperative and comfortable NUTRITIONAL APPEARANCE: overweight HENMT: COMMON NORMALS: normocephalic, Normal nasal mucous membranes and turbinates present and moist oral mucous membranes HEAD & SCALP: normocephalic NOSE: Normal nasal mucous membranes and turbinates present Eye: COMMON NORMALS: Equal, round and reactive pupils present, EOMs intact bilaterally and conjunctivae normal CONJUNCTIVA: Yes conjunctivae normal PUPIL: Yes Equal, round and reactive pupils present Neck/C-Spine: COMMON NORMALS: full ROM, no JVD and No carotid bruits Chest: COMMONS NORMALS: normal inspection of the chest Resp: COMMON NORMALS: normal respiratory effort, No retractions and No use of accessory muscles AUSCULTATION: wheezes (Scattered expiratory wheezes) Cardio: COMMON NORMALS: no JVD, regular rate, regular rhythm, No murmurs present (Cardio) and Peripheral pulses 2+ throughout RATE: regular rate RHYTHM: regular rhythm PERIPHERAL PULSES: Peripheral pulses 2+ throughout GI: COMMON NORMALS: Normal to inspection, nondistended, normoactive bowel sounds present, Soft to palpation, non-tender and no masses PALPATION: Yes Soft to palpation RECTAL EXAM: Yes normal sphincter tone and Yes heme negative stool (Control positive) : COMMON NORMALS: Yes no CVA tenderness BLADDER/KIDNEY EXAM: Yes no CVA tenderness Back/Pelvis: COMMON NORMALS: no CVA tenderness, thoracic and lumbar spine normal to inspection, no thoracic nor lumbar tenderness and thoraco-lumbar ROM normal Extremity: COMMON NORMALS: normal to inspection, full ROM, capillary refill normal, no calf tenderness and no pedal edema Neuro: COMMON NORMALS: patient oriented x3, moves all extremities and no focal motor deficits SENSORIUM/ORIENTATION: Yes alert CRANIAL NERVES: Yes CN normal except as noted SPEECH: speech normal Psych: COMMON NORMALS: mental status grossly normal Skin: COMMON NORMALS: no rashes or lesions noted, no wounds and turgor normal GENERAL SKIN EXAM: no rashes or lesions noted and turgor normal Course Reevaluation(s): Reevaluation #1: Patient remains at his baseline with normal vital signs, oxygen saturation 94 to 96% on his usual 2 L of oxygen per nasal cannula. No subsequent stools since his single stool earlier today. Discussed current findings and lack of evidence at this time of any ongoing gastrointestinal bleeding. Recommend reasonable to be discharged for close follow-up. He voiced understanding and was appreciative of care. Time: 21:27 Vital Signs: Vital signs: Vital Signs Temperature 99.2 F 10/04/22 16:23 Pulse Rate 97 10/04/22 21:14 Respiratory Rate 18 10/04/22 21:14 Blood Pressure 150/88 10/04/22 21:14 Pulse Oximetry 100 10/04/22 21:14 Oxygen Delivery Me thod 10/04/22 16:23 Oxygen Flow Rate 4 10/04/22 16:23 MDM - GI Bleed Medical Decision Making This gentleman with history of prior smoking history, systemic vascular disease, atrial fibrillation on Eliquis presented to our emergency department because he was concerned he might be having a change in his stools that may represent some pathologic issue. He states he had an episode of a single dark stool that was painless earlier today. There is no evidence of bleeding or bright blood blood in his stools. He states that he was told he had a low iron at the [facility] some days ago and begun on iron which she has been taking approximately 1 week. His clinical examination is reassuring and that his findings did not suggest a perturbation from his baseline according to the patient and his family. A rectal examination revealed guaiac negative dark stool. Ancillary studies to include hemoglobin and hematocrit were reassuring and essentially unchanged from prior values available within our system. Also notable that his BUN was in the normal range also mitigating against ongoing blood loss. His current clinical picture does not suggest ongoing gastrointestinal bleeding but likely darkening of his stools due to the iron supplementation. This was reviewed with patient and he was admonished to continue all his usual medications and follow his stooling and other clinical parameters closely. He acknowledged our discussion and was stable for discharge at this time. Differential Diagnosis Unlikely hemorrhoids, hematochezia or melena Lab Data I reviewed the patient's lab results. 10/04/22 16:35 10/04/22 16:35 Radiology Impressions Chest X-Ray 10/04/22 15:50 IMPRESSION: Negative chest Laboratory Results WBC 9.7 10^3/uL (4.0-10.0) 10/04/22 16:35 RBC 4.54 10^6/uL (4.1-5.3) 10/04/22 16:35 Hgb 13.2 g/dL (11.7-16.6) 10/04/22 16:35 Hct 43.0 % (42.0-52.0) 10/04/22 16:35 MCV 94.7 fl (80-94) H 10/04/22 16:35 MCH 29.1 pg (28.0-34.0) 10/04/22 16:35 MCHC 30.7 g/dL (30.0-36.0) 10/04/22 16:35 RDW 16.4 % (12.1-15.1) H 10/04/22 16:35 Plt Count 209 10^3/cmm (130-400) 10/04/22 16:35 MPV 10.5 fL (7.4-10.4) H 10/04/22 16:35 Neut % (Auto) 79.0 % 10/04/22 16:35 Lymph % (Auto) 10.1 % 10/04/22 16:35 Lake % (Auto) 7.4 % 10/04/22 16:35 Eos % (Auto) 2.6 % 10/04/22 16:35 Baso % (Auto) 0.6 % 10/04/22 16:35 Neut # (Auto) 7.68 10^3/uL (1.8-7.7) 10/04/22 16:35 Lymph # (Auto) 1.0 10^3/uL (0.8-4.8) 10/04/22 16:35 Lake # (Auto) 0.7 10^3/uL (0.2-0.9) 10/04/22 16:35 Eos # (Auto) 0.3 10^3/uL (0.0-0.8) 10/04/22 16:35 Baso # (Auto) 0.1 10^3/uL (0.0-0.1) 10/04/22 16:35 Nucleated RBC % (auto) 0 % 10/04/22 16:35 Nucleated RBCs # 0.0 /100WBC 10/04/22 16:35 PT 17.20 SECONDS (12.1-14.9) H 10/04/22 16:35 INR 1.35 (0.8-1.2) H 10/04/22 16:35 APTT 28.4 SECONDS (23.9-36.7) 10/04/22 16:35 Sodium 141 mmol/L (136-145) 10/04/22 16:35 Potassium 4.5 mmol/L (3.5-5.1) 10/04/22 16:35 Chloride 96 mmol/L (98-107) L 10/04/22 16:35 Carbon Dioxide 34 mmol/L (22-29) H 10/04/22 16:35 Anion Gap 15.5 (5-19) 10/04/22 16:35 BUN 14 mg/dL (8-23) 10/04/22 16:35 Creatinine 0.7 mg/dL (0.7-1.2) 10/04/22 16:35 GFR Calculation Not Reportable 10/04/22 16:35 Glucose 112 mg/dL (65-115) 10/04/22 16:35 Calculated Osmolality 293 mOsm/kg (285-295) 10/04/22 16:35 Calcium 9.4 mg/dL (8.5-10.5) 10/04/22 16:35 Total Bilirubin 0.8 mg/dL (0.15-1.2) 10/04/22 16:35 AST 14 U/L (0-40) 10/04/22 16:35 ALT 9 U/L (0-41) 10/04/22 16:35 Alkaline Phosphatase 74 U/L (40-130) 10/04/22 16:35 NT-Pro-B Natriuret Pep 640 pg/mL (0-125) H 10/04/22 16:35 Total Protein 7.4 g/dL (6.6-8.7) 10/04/22 16:35 Albumin 4.5 g/dL (3.5-5.2) 10/04/22 16:35 Globulin 2.9 g/dL (1.3-4.6) 10/04/22 16:35 Discharge Plan Discharge Patient Disposition: Home Clinical Impression: COPD (chronic obstructive pulmonary disease), Iron deficiency, Medication side effect Condition: Stable Prescriptions: No Action apixaban 5 mg tablet 5 mg PO BID@0800,1999 levetiracetam 500 mg tablet 500 mg PO BID@0800,1999 albuterol sulfate [ProAir HFA] 90 mcg/actuation HFA aerosol inhaler 1 inh inhalation QID PRN (Reason: Shortness Of Breath) diltiazem HCl 120 mg capsule,extended release 12 hr 120 mg PO Q12H nystatin 100,000 unit/mL suspension 1 ml PO TID PRN (Reason: Oral thrush) Qty: 200 1RF Rx Instructions: swish and swallow guaifenesin [Mucinex] 600 mg tablet extended release 12hr 600 mg PO BID Qty: 60 3RF Breztri Aerosphere 160-9-4.8 mcg/actuation HFA aerosol inhaler 2 inh inhalation BID Qty: 10.7 3RF furosemide [Lasix] 20 mg tablet 20 mg PO DAILY Qty: 30 3RF potassium chloride 10 mEq tablet extended release 10 meq PO DAILY Qty: 30 3RF prednisone 20 mg tablet 20 mg PO DAILY Qty: 5 0RF levofloxacin 500 mg tablet 500 mg PO DAILY Qty: 5 0RF cholecalciferol (vitamin D3) [Vitamin D3] 25 mcg (1,000 unit) Capsule 25 mcg PO DAILY Qty: 0 Discharge Orders: Discharge ED (Routine); Ordered 10/04/22 Ordered By: Bharathi Hernandez Referrals: Jackie Kulkarni MD [Primary Care Provider] - Discharge Diet: Usual diet Discharge Activity: Increase activity as tolerated and Oxygen as instructed Patient Instructions: Opioid Safety, Pain Management Activity Restrictions/Additional Instructions: As we discussed while you are in the emergency department your dark stools appear to be from your iron supplements. Your blood count and other findings tonight did not suggest any ongoing gastrointestinal bleeding. Continue all usual medications and watch for signs of weakness, which change in your usual constitutional shortness of breath etc. or appearance of bright red blood in your stools or urine etc. 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
[2022-10-04 21:14] VITALS: BP 150/88; PULSE 97; RESP 18; O2SAT 100
== END 2022-10-04 21:37 | disposition home or self-care (01) ==
PROVIDERS: Physician Assistant; Emergency Provider Emergency Medicine; PCP Family Medicine
DX: J44.9 Chronic obstructive pulmonary disease, unspecified (principal); E61.1 Iron deficiency; T45.4X5A Adverse effect of iron and its compounds, initial encounter; Z87.891 Personal history of nicotine dependence; I10 Essential (primary) hypertension
CPT/HCPCS: 36415; 71045; 80053; 83880; 85025; 85610; 85730; 99284

== ENCOUNTER → 2023-01-05 12:49 | Outpatient (BNVA) | payer OTHER, SELFPAY | PROVIDERS: PCP Family Medicine; Visit Provider Internal Medicine Pulmonary Disease | DX: J44.9 Chronic obstructive pulmonary disease, unspecified (principal); R06.02 Shortness of breath; R91.1 Solitary pulmonary nodule; G47.33 Obstructive sleep apnea (adult) (pediatric); Z71.6 Tobacco abuse counseling; B37.0 Candidal stomatitis; Z87.891 Personal history of nicotine dependence; Z79.51 Long term (current) use of inhaled steroids; R49.0 Dysphonia; I48.91 Unspecified atrial fibrillation; Z79.01 Long term (current) use of anticoagulants; I73.9 Peripheral vascular disease, unspecified; I10 Essential (primary) hypertension; R91.8 Other nonspecific abnormal finding of lung field; Z87.898 Personal history of other specified conditions | CPT/HCPCS: 99214 ==

== ENCOUNTER 2023-01-25 19:28 | Emergency (ER) | payer OTHER, SELFPAY ==
[2023-01-25] VITALS (8 sets, daily range): BP systolic 119–152; BP diastolic 80–101; PULSE 79–106; RESP 22–28; O2SAT 91–96; BMI 31.0
--- NOTE | 2023-01-25 19:47 | XRR_ITS ---
PROCEDURE INFORMATION: Exam: XR Chest Exam date and time: 01/25/2023 8:04 PM Age: 72 years old Clinical indication: Pain; On breathing; Prior surgery; Surgery date: 6+ months; Surgery type: Triple a; Additional info: SOB TECHNIQUE: Imaging protocol: Radiologic exam of the chest. Views: 1 view. COMPARISON: CR XR chest 1V portable [id number] 10/04/2022 4:08 PM FINDINGS: Lungs: Unremarkable. No consolidation. Pleural spaces: Unremarkable. No pleural effusion. No pneumothorax. Heart/Mediastinum: Unremarkable. No cardiomegaly. Bones/joints: Old posterior right rib fractures. No acute fracture visualized. XR/XR chest 1V portable [id number] IMPRESSION: No acute findings.
--- NOTE | 2023-01-25 19:49 | ED_ITS ---
HPI - SOB/Dyspnea General: Chief Complaint: Shortness of Breath/Dyspnea Stated Complaint: SOB Time Seen by Provider: 01/25/23 19:42 Source: patient Mode of arrival: EMS Limitations: no limitations History of Present Illness: HPI Narrative: Patient is a nice 72-year-old male with a known history of COPD on chronic oxygen here for complaints of dyspnea. Patient states he normally wears 4 L of oxygen continuously although states sometimes at rest he can remove it. He states he was seated in his recliner a few hours ago when he began feeling short of breath. No known provoking factor. He is not having any chest discomfort. Patient has a history of atrial fibrillation anticoagulated with Eliquis. Chief Transfer And Pumphouse Operator is Dr. Templeton. Patient has not been running fevers. Denies lower extremity swelling or calf pain. No recent surgeries. No prolonged periods of inactivity. Upon arrival patient is on 4 L of oxygen and satting at roughly 92%. He states at home his oxygen runs anywhere from 88 to 96%. MD elicited complaint: shortness of breath Pertinent past history: COPD Onset (ago): hour(s) Severity: moderate Relieving factors: nothing Known history of: COPD Associated symptoms: Deny abdominal pain, chest congestion, chest pain, dizziness, extremity pain, fever(s), hemoptysis, lightheadedness, nausea, orthopnea, palpitations, syncope or vomiting Treatment prior to arrival: oxygen Related Data: Home oxygen amount: 4 liters Review of Systems Const: Denies: fever(s), chills, body aches, fatigue or malaise Card: Reports: irregular heart rhythm (hx of a fib ) and dyspnea on exertion (chronic); Denies: chest pain, palpitations, edema, swelling of feet/ankles, lightheadedness, syncope, pre-syncope, orthopnea, leg pain with exertion or acrocyanosis Resp: Reports: dyspnea (acute on chronic) and wheezing; Denies: productive cough, non-productive cough, stridor, pain on inspiration, change in phlegm color, hemoptysis or chest congestion GI: Denies: abdominal pain, nausea, vomiting, diarrhea or change in bowel habits Musc: Denies: neck pain, back pain, extremity pain, extremity swelling, joint pain, joint swelling, joint redness or joint warmth Skin/Breast: Denies: rash Neuro: Denies: headache(s), numbness in extremities, weakness in extremities, sensory changes or dizziness PFSH ED PFSH: Medical History A-fib Benign essential HTN COPD (chronic obstructive pulmonary disease) Depression Dyspnea on exertion Hx of seizure disorder Iliac artery aneurysm, bilateral DA (obstructive sleep apnea) Peripheral arterial disease Popliteal artery aneurysm Sleep apnea in adult Spinal stenosis Tinnitus Surgical History History of AAA (abdominal aortic aneurysm) repair 2009 History of colonoscopy with polypectomy 2018 History of left inguinal hernia repair 2016 History of PTCA History of vascular surgery rt and left leg 2019 S/P hernia repair incisional Family History Mother Cancer Diabetes Father CAD (coronary artery disease) Cancer Chronic kidney disease (CKD) Diabetes Brother No problems noted. Sister No problems noted. Grandfather Lung disease Denies family history of Clotting disorder Dementia Suicide Anesthesia complication Bleeding disorder Stroke Social History Smoking and tobacco status: former smoker Alcohol intake: never Substance/Drug Use: never Physical Exam Const: COMMON NORMALS: patient oriented x3, no limitations, alert and well nourished GENERAL APPEARANCE: cooperative and in distress (appears in respiratory distress with accessory muscle use and tachypnea) NUTRITIONAL APPEARANCE: overweight ORIENTATION/CONSCIOUSNESS: Yes awake, Yes oriented to person, Yes oriented to place and Yes oriented to time HENMT: COMMON NORMALS: normocephalic and atraumatic HEAD & SCALP: normal to inspection, normocephalic and atraumatic Neck/C-Spine: COMMON NORMALS: no JVD Chest: COMMONS NORMALS: normal inspection of the chest and normal palpation of entire chest wall Resp: EFFORT & INSPECTION: Yes able to speak in complete sentences, Yes tachypneic, No pursed lip breathing, Yes labored, No grunting, No stridor, No Actively coughing, No retractions and Yes uses accessory muscles AUSCULTATION: wheezes Cardio: COMMON NORMALS: no JVD and regular rate RATE: regular rate RHYTHM: abnormal rhythm irregularly irregular (hx of atrial fib) GI: COMMON NORMALS: Normal to inspection, nondistended, normoactive bowel sounds present, Soft to palpation and non-tender PALPATION: Yes Soft to palpation Extremity: COMMON NORMALS: full ROM, capillary refill normal, no calf tenderness and no pedal edema NARRATIVE EXTREMITY EXAM: bilateral palpable DP/PT pulses GENERAL: Yes normal exam except as noted Neuro: PARAG COMA SCALE: document GCS findings [place] coma scale eye opening: Spontaneous Par[place] coma scale verbal response: Orientated [place] coma scale motor response: Obey commands Parag coma scale total score: 15 COMMON NORMALS: patient oriented x3, moves all extremities, no focal motor deficits and no sensory deficits noted SENSORIUM/ORIENTATION: Yes alert, Yes oriented to person, Yes oriented to place and Yes oriented to time Skin: COMMON NORMALS: no rashes or lesions noted GENERAL SKIN EXAM: no rashes or lesions noted Course Vital Signs: Vital signs: Vital Signs Pulse Rate 95 01/25/23 20:50 Respiratory Rate 22 H 01/25/23 20:50 Blood Pressure 140/101 01/25/23 20:00 Pulse Oximetry 95 01/25/23 20:50 Oxygen Delivery Me thod Nasal Cannula 01/25/23 20:48 Oxygen Flow Rate 4 01/25/23 20:50 MDM - SOB/Dyspnea Medical Decision Making Patient is a nice 72-year-old male with a known history of COPD here for complaints of dyspnea that began at rest a few hours ago. Upon arrival patient appeared in respiratory distress with accessory muscle use, tachypnea, and diffuse wheezes. Vital signs upon arrival showing tachycardia and tachypnea. O2 sat was 95% on his normal 4L. Patient was given IV Dexamethasone and DuoNeb respiratory treatment. Re-examination reveals a much more comfortable appearing patient. He states he no longer feels short of breath. Tachycardia/tachypnea have resolved. O2 sats are still at 95%. Wheezing is gone. Blood work is non- actionable. His baseline trop is 16 with a non-significant delta. He has no chest pain. EKG showing rate controlled atrial fib. He has been compliant on his anticoagulation. ABG showing compensated hypercapnia-most likely chronic. Patient feels comfortable to go home. Will be treated for COPD exacerbation. Return to ED precautions given. Lab Data 01/25/23 18:50 01/25/23 18:50 Labs/Radiology: Radiology Impressions Chest X-Ray 01/25/23 19:47 IMPRESSION: No acute findings. Laboratory Results WBC 11.5 10^3/uL (4.0-10.0) H 01/25/23 18:50 RBC 5.26 10^6/uL (4.1-5.3) 01/25/23 18:50 Hgb 14.9 g/dL (11.7-16.6) 01/25/23 18:50 Hct 48.8 % (42.0-52.0) 01/25/23 18:50 MCV 92.8 fl (80-94) 01/25/23 18:50 MCH 28.3 pg (28.0-34.0) 01/25/23 18:50 MCHC 30.5 g/dL (30.0-36.0) 01/25/23 18:50 RDW 14.8 % (12.1-15.1) 01/25/23 18:50 Plt Count 181 10^3/cmm (130-400) 01/25/23 18:50 MPV 11.1 fL (7.4-10.4) H 01/25/23 18:50 Neut % (Auto) 75.6 % 01/25/23 18:50 Lymph % (Auto) 12.5 % 01/25/23 18:50 [place] % (Auto) 8.4 % 01/25/23 18:50 Eos % (Auto) 2.6 % 01/25/23 18:50 Baso % (Auto) 0.6 % 01/25/23 18:50 Neut # (Auto) 8.69 10^3/uL (1.8-7.7) H 01/25/23 18:50 Lymph # (Auto) 1.4 10^3/uL (0.8-4.8) 01/25/23 18:50 [place] # (Auto) 1.0 10^3/uL (0.2-0.9) H 01/25/23 18:50 Eos # (Auto) 0.3 10^3/uL (0.0-0.8) 01/25/23 18:50 Baso # (Auto) 0.1 10^3/uL (0.0-0.1) 01/25/23 18:50 Nucleated RBC % (auto) 0 % 01/25/23 18:50 Nucleated RBCs # 0.0 /100WBC 01/25/23 18:50 Specimen Type Arterial 01/25/23 20:50 Sample Site Brachial, right 01/25/23 20:50 ABG pH 7.38 (7.35-7.45) 01/25/23 20:50 ABG pCO2 61.4 mmHg (35-45) H* 01/25/23 20:50 ABG pO2 79.0 mmHg (80.0-100.0) L 01/25/23 20:50 ABG HCO3 36.5 mmol/L (22-26) H 01/25/23 20:50 ABG O2 Saturation 96.5 01/25/23 20:50 ABG Base Excess 9.0 mmol/L (-2.0-2.0) H 01/25/23 20:50 Geremias Test Pos 01/25/23 20:50 A-a O2 Gradient 13.4 mmHg (5-10) H 01/25/23 20:50 Hematocrit 43.8 % (42-52) 01/25/23 20:50 Hgb O2 Saturation 94.3 % (95-100) L 01/25/23 20:50 Carboxyhemoglobin 1.9 %THgb (0.4-20.1) 01/25/23 20:50 Methemoglobin 0.4 % (0.4-1.5) 01/25/23 20:50 Total Hemoglobin 14.3 g/dL (14-18) 01/25/23 20:50 Sodium 143.0 mmol/L (131-143) 01/25/23 20:50 Potassium 4.5 mmol/L (3.5-5.0) 01/25/23 20:50 Glucose 124.0 mg/dL (70-115) H 01/25/23 20:50 Ionized Calcium 1.2 mmol/L (1.1-1.4) 01/25/23 20:50 O2 Delivery Device Nc 01/25/23 20:50 O2 Liters/Min 4.0 % 01/25/23 20:50 FiO2 36.0 % 01/25/23 20:50 Paper Guillotine Operator ID Bd 01/25/23 20:50 Sodium 143 mmol/L (136-145) 01/25/23 18:50 Potassium 4.2 mmol/L (3.5-5.1) 01/25/23 18:50 Chloride 96 mmol/L (98-107) L 01/25/23 18:50 Carbon Dioxide 35 mmol/L (22-29) H 01/25/23 18:50 Anion Gap 16.2 (5-19) 01/25/23 18:50 BUN 16 mg/dL (8-23) 01/25/23 18:50 Creatinine 0.8 mg/dL (0.7-1.2) 01/25/23 18:50 GFR Calculation Not Reportable 01/25/23 18:50 Glucose 108 mg/dL (65-115) 01/25/23 18:50 Calculated Osmolality 298 mOsm/kg (285-295) H 01/25/23 18:50 Calcium 10.0 mg/dL (8.5-10.5) 01/25/23 18:50 Total Bilirubin 0.8 mg/dL (0.15-1.2) 01/25/23 18:50 AST 18 U/L (0-40) 01/25/23 18:50 ALT 12 U/L (0-41) 01/25/23 18:50 Alkaline Phosphatase 75 U/L (40-130) 01/25/23 18:50 Troponin T Baseline 16 ng/L (0-15) H 01/25/23 18:50 Troponin T 120 Minute 19.13 ng/L (0-15) H 01/25/23 20:38 Delta Troponin T 3.13 ABS# (0-10) 01/25/23 20:38 NT-Pro-B Natriuret Pep 744 pg/mL (0-125) H 01/25/23 18:50 Total Protein 7.6 g/dL (6.6-8.7) 01/25/23 18:50 Albumin 4.3 g/dL (3.5-5.2) 01/25/23 18:50 Globulin 3.3 g/dL (1.3-4.6) 01/25/23 18:50 Procalcitonin 0.04 ng/mL (0-0.5) 01/25/23 18:50 Discharge Plan Discharge Patient Disposition: Home Clinical Impression: Acute exacerbation of chronic obstructive pulmonary disease Condition: Stable Prescriptions: New prednisone 10 mg tablet 10 mg PO DAILY 10 Days Qty: 27 0RF Rx Instructions: 6 tabs on days 1-2, 5 tabs on days 3, 4 tabs on day 4, 3 tabs on day 5, 2 tabs on day 6, 1 tab on day 7 doxycycline monohydrate 100 mg capsule 100 mg PO Q12H 10 Days Qty: 20 0RF No Action apixaban 5 mg tablet 5 mg PO BID@0800,2000 levetiracetam 500 mg tablet 500 mg PO BID@0800,2000 albuterol sulfate [ProAir HFA] 90 mcg/actuation HFA aerosol inhaler 1 inh inhalation QID PRN (Reason: Shortness Of Breath) diltiazem HCl 120 mg capsule,extended release 12 hr 120 mg PO Q12H nystatin 100,000 unit/mL suspension 1 ml PO TID PRN (Reason: Oral thrush) Qty: 200 1RF Rx Instructions: swish and swallow guaifenesin [Mucinex] 600 mg tablet extended release 12hr 600 mg PO BID Qty: 60 3RF budesonide 0.5 mg/2 mL suspension for nebulization 0.5 mg inhalation BID Qty: 120 6RF Breztri Aerosphere 160-9-4.8 mcg/actuation HFA aerosol inhaler 2 inh inhalation BID Qty: 10.7 3RF levofloxacin 500 mg tablet 500 mg PO DAILY Qty: 5 0RF prednisone 20 mg tablet 20 mg PO DAILY Qty: 5 0RF prednisone 10 mg tablet 10 mg PO DAILY Qty: 5 0RF furosemide [Lasix] 20 mg tablet 20 mg PO DAILY Qty: 60 3RF potassium chloride 10 mEq tablet extended release 10 meq PO DAILY Qty: 30 3RF arformoterol 15 mcg/2 mL solution for nebulization 2 ml inhalation BID Qty: 120 6RF Spiriva Respimat 1.25 mcg/actuation mist 2 puff inhalation DAILY Qty: 4 6RF cholecalciferol (vitamin D3) [Vitamin D3] 25 mcg (1,000 unit) Capsule 25 mcg PO DAILY Qty: 0 Discharge Orders: Discharge ED (Routine); Ordered 01/25/23 Ordered By: Laury Hunter Referrals: Jackie Kulkarni MD [Primary Care Provider] - Patient Instructions: COPD (Chronic Obstructive Pulmonary Disease) (DC) Coding Level of Care Code ED Pacs Administrator for Love Owusu
--- NOTE | 2023-01-25 19:53 | ECG_ITS ---
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 Measurements Intervals [place] Rate: 86 P: 0 [place]: 0 QRS: 70 QRSD: 96 T: 58 QT: 344 QTc: 412 Interpretive Statements ATRIAL FIBRILLATION SEPTAL MYOCARDIAL INFARCTION , OF INDETERMINATE AGE [40+ ms Q WAVE IN V1/V2] Compared to ECG 10/26/2020 23:15:30 Myocardial infarct finding now present Sinus rhythm no longer present Ventricular premature complex(es) no longer present Prolonged QT interval no longer present Electronically Signed On 01-26-2023 12:30:02 CDT by Samina Brewster M.D. [id number]
[2023-01-25] MEDS: dexamethasone 4 mg/mL INJ 8 MG IVP (19:56)
[2023-01-25 20:03] LABS: Basophils # 0.1 10^3/uL (0.0-0.1); Basophils % 0.6 %; Eosinophils # 0.3 10^3/uL (0.0-0.8); Eosinophils % 2.6 %; Hematocrit 48.8 % (42.0-52.0); Hemoglobin 14.9 g/dL (11.7-16.6); Lymphocytes # 1.4 10^3/uL (0.8-4.8); Lymphocytes % 12.5 %; Mean Corpuscular HGB Conc 30.5 g/dL (30.0-36.0); Mean Corpuscular Hemoglobin 28.3 pg (28.0-34.0); Mean Corpuscular Volume 92.8 fl (80-94); Mean Platelet Volume 11.1 fL (7.4-10.4); Monocytes % 8.4 %; Neutrophils # 8.69 10^3/uL (1.8-7.7); Neutrophils % 75.6 %; Nucleated Red Blood Cells % 0 %; Platelet Count 181 10^3/cmm (130-400); Red Blood Count 5.26 10^6/uL (4.1-5.3); Red Cell Distribution Width 14.8 % (12.1-15.1); White Blood Count 11.5 10^3/uL (4.0-10.0)
[2023-01-25 20:27] LABS: Troponin(5th) Baseline 16 ng/L (0-15)
[2023-01-25 20:34] LABS: NT Pro B Type Natriuretic Pept 744 pg/mL (0-125); Procalcitonin 0.04 ng/mL (0-0.5)
[2023-01-25 20:47] LABS: Alanine Aminotransferase 12 U/L (0-41); Albumin Level 4.3 g/dL (3.5-5.2); Alkaline Phosphatase 75 U/L (40-130); Anion Gap 16.2 (5-19); Aspartate Amino Transferase 18 U/L (0-40); Blood Urea Nitrogen 16 mg/dL (8-23); Carbon Dioxide 35 mmol/L (22-29); Chloride 96 mmol/L (98-107); Globulin 3.3 g/dL (1.3-4.6); Glucose 108 mg/dL (65-115); Osmolality Calculated 298 mOsm/kg (285-295); Potassium 4.2 mmol/L (3.5-5.1); Sodium 143 mmol/L (136-145); Total Bilirubin 0.8 mg/dL (0.15-1.2); Total Protein 7.6 g/dL (6.6-8.7)
[2023-01-25] MEDS: ipratropium-albuterol 3 mL Neb INHALATION (20:47)
[2023-01-25 21:06] LABS: ABG PCO2 61.4 mmHg (35-45); ABG PH Result 7.38 (7.35-7.45); Alveolar-Arterial Oxygen Gradi 13.4 mmHg (5-10); Arterial Blood Gas Hematocrit 43.8 % (42-52); Blood Gas Allen Test Pos; Blood Gas Operator Identificat BD; Blood Gas Sample Site Brachial, right; Blood Gas Sample Type Arterial; Carboxyhemoglobin 1.9 %THgb (0.4-20.1); HCO3 ABG 36.5 mmol/L (22-26); HGB O2 Sat 94.3 % (95-100); Ionized Calcium Level - ABG 1.2 mmol/L (1.1-1.4); Methemoglobin 0.4 % (0.4-1.5); Oxygen Device NC; Oxygen Saturation ABG 96.5; Potassium Level - ABG 4.5 mmol/L (3.5-5.0); Total Hemoglobin 14.3 g/dL (14-18)
[2023-01-25 21:07] LABS: Troponin 5 2HR 19.13 ng/L (0-15)
[2023-01-25 21:08] LABS: Troponin 5 2HR Delta 3.13 ABS# (0-10)
== END 2023-01-25 22:12 | disposition home or self-care (01) ==
PROVIDERS: Emergency Provider Physician Assistant; PCP Family Medicine
DX: J44.1 Chronic obstructive pulmonary disease with (acute) exacerbation (principal); Z87.891 Personal history of nicotine dependence; I10 Essential (primary) hypertension
CPT/HCPCS: 36415; 36600; 71045; 80051; 80053; 82330; 82805; 83880; 84145; 84484; 85025; 93005; 94640; 96374; 99285; J1100

== ENCOUNTER → 2023-02-06 10:05 | Outpatient (BNVA) | payer OTHER, SELFPAY | PROVIDERS: PCP Family Medicine; Referring Provider Family Medicine; Visit Provider Nurse Practitioner Family | DX: D22.5 Melanocytic nevi of trunk (principal); L82.1 Other seborrheic keratosis; D23.4 Other benign neoplasm of skin of scalp and neck; L21.8 Other seborrheic dermatitis; L57.0 Actinic keratosis; L82.0 Inflamed seborrheic keratosis; L81.4 Other melanin hyperpigmentation; L57.8 Other skin changes due to chronic exposure to nonionizing radiation | CPT/HCPCS: 11102; 17000; 17003; 17110; 99203 ==

== ENCOUNTER → 2023-02-15 16:42 | Outpatient (BNVA) | payer OTHER, SELFPAY | PROVIDERS: PCP Family Medicine; Visit Provider Internal Medicine Cardiovascular Disease | DX: R06.02 Shortness of breath (principal); I10 Essential (primary) hypertension | CPT/HCPCS: 80048; 83880; 99214 ==

== ENCOUNTER 2023-02-21 03:52 | Inpatient (IN) | payer OTHER, SELFPAY ==
[2023-02-21] VITALS (59 sets, daily range): BP systolic 95–121; BP diastolic 70–90; PULSE 66–138; RESP 13–35; TEMP 37.1; O2SAT 86–98; BMI 31.0
--- NOTE | 2023-02-21 04:11 | ECG_ITS ---
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 Measurements Intervals [place] Rate: 121 P: 0 [place]: 0 QRS: 73 QRSD: 104 T: -73 QT: 271 QTc: 385 Interpretive Statements ATRIAL FIBRILLATION WITH RAPID VENTRICULAR RESPONSE ST DEVIATION AND MODERATE T-WAVE ABNORMALITY, CONSIDER INFERIOR ISCHEMIA [-0.1+ mV T-WAVE IN II/aVF] Compared to ECG 01/25/2023 19:53:49 T-wave abnormality now present Possible ischemia now present Myocardial infarct finding no longer present Electronically Signed On 02-21-2023 12:00:53 CDT by Samina Brewster M.D. [id number]
--- NOTE | 2023-02-21 04:11 | XRR_ITS ---
PROCEDURE INFORMATION: Exam: XR Chest Exam date and time: 02/21/2023 4:14 AM Age: 72 years old Clinical indication: Shortness of breath; Patient HX: C/O SOB. TECHNIQUE: Imaging protocol: Radiologic exam of the chest. Views: 1 view. COMPARISON: CR (CHEST, ) 01/25/2023 8:04 PM FINDINGS: Lungs: Mild lung base atelectasis or scarring. No consolidation. Pleural spaces: Unremarkable. No pleural effusion. No pneumothorax. Heart/Mediastinum: Mild cardiomegaly. Midline chest monitoring electrode type device. Advise correlation. Bones/joints: Unremarkable. XR/XR chest 1V portable [id number] IMPRESSION: No acute findings.
--- NOTE | 2023-02-21 04:13 | W.ED.SOB ---
HPI - SOB/Dyspnea General: Chief Complaint: Shortness of Breath/Dyspnea Stated Complaint: SOB Time Seen by Provider: 02/21/23 03:56 Source: patient History of Present Illness: HPI Narrative: 72-year-old gentleman with heart failure history and COPD history. He also has a history of atrial fibrillation. He states that his woke him up this morning. He was evidently struggling to breathe with his CPAP. EMS found him to have saturations in the 70s on his CPAP machine. He usually uses 4 L of oxygen at home. He was given Solu-Medrol, DuoNeb and albuterol treatments in route, with improvement in his breathing status. He says that he felt pretty well yesterday, but was really struggling to breathe this morning when waking. He has had some cough, not overly increased, with some yellow sputum production. No fever. He has had some chronic leg swelling that does not appear worse lately. He was placed on a Holter monitor last week by cardiology. He is not having chest pain. MD elicited complaint: shortness of breath and cough Pertinent past history: COPD and congestive heart failure Onset (ago): minute(s) Context: other Timing: constant Exacerbating factors: lying flat and exertion Relieving factors: oxygen, bronchodilators and medication Known history of: COPD and congestive heart failure Associated symptoms: Reports cough and orthopnea; Deny abdominal pain, chest pain, diaphoresis, dizziness, fever(s), syncope or vomiting Treatment prior to arrival: oxygen, bronchodilator and other Related Data: Home oxygen amount: 4 liters Review of Systems Const: Denies: fever(s) or diaphoresis ENMT: Denies: throat pain Card: Reports: orthopnea; Denies: chest pain or syncope Resp: Reports: dyspnea, productive cough and wheezing GI: Denies: abdominal pain or vomiting Skin/Breast: Denies: rash Neuro: Denies: dizziness PFSH ED PFSH: Medical History A-fib Benign essential HTN COPD (chronic obstructive pulmonary disease) Depression Dyspnea on exertion Hx of seizure disorder Iliac artery aneurysm, bilateral DA (obstructive sleep apnea) Peripheral arterial disease Popliteal artery aneurysm Sleep apnea in adult Spinal stenosis Tinnitus Surgical History History of AAA (abdominal aortic aneurysm) repair 2010 History of colonoscopy with polypectomy 2018 History of left inguinal hernia repair 2016 History of PTCA History of vascular surgery rt and left leg 2019 S/P hernia repair incisional Family History Mother Cancer Diabetes Father CAD (coronary artery disease) Cancer Chronic kidney disease (CKD) Diabetes Brother No problems noted. Sister No problems noted. Grandfather Lung disease Denies family history of Clotting disorder Dementia Suicide Anesthesia complication Bleeding disorder Stroke Social History Smoking and tobacco status: former smoker Alcohol intake: never Substance/Drug Use: never Physical Exam HENMT: COMMON NORMALS: normocephalic and atraumatic HEAD & SCALP: normocephalic and atraumatic FACE & SINUS: normal facial exam Eye: COMMON NORMALS: Equal, round and reactive pupils present and EOMs intact bilaterally PUPIL: Yes Equal, round and reactive pupils present Neck/C-Spine: COMMON NORMALS: full ROM Chest: CHEST: Yes Symmetrical chest wall rise Resp: COMMON NORMALS: normal respiratory effort and No use of accessory muscles Cardio: RATE: tachycardic RHYTHM: abnormal rhythm irregularly irregular GI: COMMON NORMALS: Normal to inspection, nondistended, normoactive bowel sounds present Extremity: GENERAL: Yes edema (1-2+) Neuro: PARAG COMA SCALE: document GCS findings [place] coma scale eye opening: Spontaneous Parag coma scale verbal response: Orientated [place] coma scale motor response: Obey commands Parag coma scale total score: 15 Psych: COMMON NORMALS: cooperative Course Vital Signs: Vital signs: Vital Signs Temperature 98.7 F 02/21/23 03:52 Pulse Rate 113 H 02/21/23 05:32 Respiratory Rate 16 02/21/23 05:32 Blood Pressure 100/75 02/21/23 05:32 Pulse Oximetry 97 02/21/23 05:32 Oxygen Delivery Me thod BiPAP 02/21/23 05:32 Oxygen Flow Rate 6 02/21/23 04:45 Fraction of Inspir ed Oxygen 45 02/21/23 04:45 MDM - SOB/Dyspnea Medical Decision Making 72-year-old gentleman with significant shortness of breath. On arrival, he was significantly improved from presentation to EMS at home. White blood cell count is 14. Heart rate is down to 113 from 138. Respirations are down to 16 from 24. Blood gas shows a pH of 7.3, PCO2 of 71, and PO2 of 62 on 48% oxygen/6 L nasal cannula. He was placed on BiPAP. Saturations now 98%. Blood pressure is 102/77. He will require admission. Chest x-ray does not show a definite infiltrate. He is covered with antibiotics regardless. CMP, lactic, and BNP are pending. He will need to go to the ICU. Repeat blood gas testing in an hour or so. Lab Data 02/21/23 05:07 02/21/23 05:07 Labs/Radiology: Laboratory Results WBC 14.2 10^3/uL (4.0-10.0) H 02/21/23 05:07 RBC 5.15 10^6/uL (4.1-5.3) 02/21/23 05:07 Hgb 15.0 g/dL (11.7-16.6) 02/21/23 05:07 Hct 47.8 % (42.0-52.0) 02/21/23 05:07 MCV 92.8 fl (80-94) 02/21/23 05:07 MCH 29.1 pg (28.0-34.0) 02/21/23 05:07 MCHC 31.4 g/dL (30.0-36.0) 02/21/23 05:07 RDW 14.0 % (12.1-15.1) 02/21/23 05:07 Plt Count 191 10^3/cmm (130-400) 02/21/23 05:07 MPV 10.3 fL (7.4-10.4) 02/21/23 05:07 Neut % (Auto) 93.5 % 02/21/23 05:07 Lymph % (Auto) 2.4 % 02/21/23 05:07 [place] % (Auto) 2.7 % 02/21/23 05:07 Eos % (Auto) 0.7 % 02/21/23 05:07 Baso % (Auto) 0.3 % 02/21/23 05:07 Neut # (Auto) 13.27 10^3/uL (1.8-7.7) H 02/21/23 05:07 Lymph # (Auto) 0.3 10^3/uL (0.8-4.8) L 02/21/23 05:07 [place] # (Auto) 0.4 10^3/uL (0.2-0.9) 02/21/23 05:07 Eos # (Auto) 0.1 10^3/uL (0.0-0.8) 02/21/23 05:07 Baso # (Auto) 0.0 10^3/uL (0.0-0.1) 02/21/23 05:07 Nucleated RBC % (auto) 0 % 02/21/23 05:07 Nucleated RBCs # 0.0 /100WBC 02/21/23 05:07 Specimen Type Arterial 02/21/23 04:17 Sample Site Radial, right 02/21/23 04:17 ABG pH 7.30 (7.35-7.45) L 02/21/23 04:17 ABG pCO2 70.6 mmHg (35-45) H* 02/21/23 04:17 ABG pO2 62.0 mmHg (80.0-100.0) L 02/21/23 04:17 ABG HCO3 34.4 mmol/L (22-26) H 02/21/23 04:17 ABG Base Excess 5.3 mmol/L (-2.0-2.0) H 02/21/23 04:17 Geremias Test Pos 02/21/23 04:17 Hematocrit 43.9 % (42-52) 02/21/23 04:17 Hgb O2 Saturation 87.5 % (95-100) L 02/21/23 04:17 Carboxyhemoglobin 1.8 %THgb (0.4-20.1) 02/21/23 04:17 Methemoglobin 0.4 % (0.4-1.5) 02/21/23 04:17 Total Hemoglobin 14.3 g/dL (14-18) 02/21/23 04:17 O2 Delivery Device Nc 02/21/23 04:17 O2 Liters/Min 6.0 % 02/21/23 04:17 FiO2 48.0 % 02/21/23 04:17 Passenger Service Supervisor ID [id number] 02/21/23 04:17 Critical Care Time Critical Care Time: Critical Care Time: Yes Total Critical Care Time: 35 Attestation: This case had a high probability of a clinically significant, sudden, or life threatening deterioration of this patient's condition which required my full and direct attention, intervention and personal management. Discharge Plan Discharge Patient Disposition: Admitted As Inpatient Clinical Impression: Respiratory failure, Acute exacerbation of chronic obstructive pulmonary disease, Atrial fibrillation with RVR Condition: Serious Prescriptions: No Action apixaban 5 mg tablet 5 mg PO BID@0800,2000 levetiracetam 500 mg tablet 500 mg PO BID@0800,2000 albuterol sulfate [ProAir HFA] 90 mcg/actuation HFA aerosol inhaler 1 inh inhalation QID PRN (Reason: Shortness Of Breath) diltiazem HCl 120 mg capsule,extended release 12 hr 120 mg PO Q12H budesonide 0.5 mg/2 mL suspension for nebulization 0.5 mg inhalation BID Qty: 120 6RF levofloxacin 500 mg tablet 500 mg PO DAILY Qty: 5 0RF furosemide [Lasix] 20 mg tablet 20 mg PO DAILY Qty: 60 3RF potassium chloride 10 mEq tablet extended release 10 meq PO DAILY Qty: 30 3RF arformoterol 15 mcg/2 mL solution for nebulization 2 ml inhalation BID Qty: 120 6RF Spiriva Respimat 1.25 mcg/actuation mist 2 puff inhalation DAILY Qty: 4 6RF guaifenesin [Mucinex] 600 mg tablet extended release 12hr 600 mg PO BID Qty: 90 3RF cholecalciferol (vitamin D3) [Vitamin D3] 25 mcg (1,000 unit) Capsule 25 mcg PO DAILY Qty: 0 furosemide 20 mg tablet ferrous sulfate 325 mg PO 1XD levetiracetam 500 mg Tablet 500 mg PO BID rosuvastatin 40 mg Tablet Referrals: Jackie Kulkarni MD [Primary Care Provider] - Coding Level of Care Code ED [place] Supervisor for Love Owusu
[2023-02-21] MEDS: FUROsemide 10 mg/mL SDV 10mL 60 MG IVP (04:16)
[2023-02-21 04:29] LABS: Arterial Blood Gas Hematocrit 43.9 % (42-52); Base Excess ABG 5.3 mmol/L (-2.0-2.0); Blood Gas Allen Test Pos; Blood Gas Operator Identificat glc; Blood Gas Sample Site Radial, right; Blood Gas Sample Type Arterial; Carboxyhemoglobin 1.8 %THgb (0.4-20.1); HCO3 ABG 34.4 mmol/L (22-26); HGB O2 Sat 87.5 % (95-100); Methemoglobin 0.4 % (0.4-1.5); Oxygen Device NC; Total Hemoglobin 14.3 g/dL (14-18)
[2023-02-21 04:31] LABS: ABG PCO2 70.6 mmHg (35-45)
[2023-02-21] MEDS: albuterol 2.5 mg/3 mL Neb INHALATION (04:42)
[2023-02-21 05:15] LABS: Basophils % 0.3 %; Eosinophils # 0.1 10^3/uL (0.0-0.8); Eosinophils % 0.7 %; Hematocrit 47.8 % (42.0-52.0); Lymphocytes # 0.3 10^3/uL (0.8-4.8); Lymphocytes % 2.4 %; Mean Corpuscular HGB Conc 31.4 g/dL (30.0-36.0); Mean Corpuscular Hemoglobin 29.1 pg (28.0-34.0); Mean Corpuscular Volume 92.8 fl (80-94); Mean Platelet Volume 10.3 fL (7.4-10.4); Monocytes # 0.4 10^3/uL (0.2-0.9); Monocytes % 2.7 %; Neutrophils # 13.27 10^3/uL (1.8-7.7); Neutrophils % 93.5 %; Nucleated Red Blood Cells % 0 %; Platelet Count 191 10^3/cmm (130-400); Red Blood Count 5.15 10^6/uL (4.1-5.3); White Blood Count 14.2 10^3/uL (4.0-10.0)
[2023-02-21 05:48] LABS: Lactic Sepsis W/Reflex 3.4 mmol/L (0.5-2.2)
[2023-02-21 05:58] LABS: Alanine Aminotransferase 14 U/L (0-41); Albumin Level 4.1 g/dL (3.5-5.2); Alkaline Phosphatase 79 U/L (40-130); Aspartate Amino Transferase 20 U/L (0-40); Blood Urea Nitrogen 16 mg/dL (8-23); Calcium 9.6 mg/dL (8.5-10.5); Carbon Dioxide 36 mmol/L (22-29); Chloride 96 mmol/L (98-107); Globulin 3.4 g/dL (1.3-4.6); Glucose 164 mg/dL (65-115); NT Pro B Type Natriuretic Pept 802 pg/mL (0-125); Osmolality Calculated 299 mOsm/kg (285-295); Sodium 142 mmol/L (136-145); Total Bilirubin 0.8 mg/dL (0.15-1.2); Total Protein 7.5 g/dL (6.6-8.7)
[2023-02-21] MEDS: piperacillin-tazobactam 4.5 GM in sodium chloride 0.9% (plus) 50 ML IV (05:59)
[2023-02-21 06:03] LABS: Anion Gap 13.9 (5-19); Potassium 3.9 mmol/L (3.5-5.1)
--- NOTE | 2023-02-21 06:52 | P.HP_ITS ---
Providers/Chief Complaint Admitting Physician: Elliot Lorenzo MD Primary Care Provider: Jackie Kulkarni MD Chief Complaint: SOB History of Present Illness Kimo Hernandez is a 72 year old male with history of peripheral arterial disease status post bypass in September at [facility], A-fib, chronic anticoagulation, , diastolic CHF, pulm hypertension, severe COPD, uses inhalers breztri, also has sleep apnea, ex-smoker presented to the hospital for worsening of shortness of breath. At baseline patient is on 4 L of oxygen, patient has been experiencing productive cough with white sputum production without any change of color or increased quantity, fever nausea, vomiting, chest pain. His leg swelling is chronic, he was experiencing shortness of breath on exertion. Patient is sta ting that he was in his usual state of health until this week when he started noticing shortness of breath on exertion with wheezing which was not getting better with his inhaler Patient was saturating in 70s that was found by the EMS, he was put on CPAP, EMS also gave him albuterol and DuoNeb treatment In the ER he was diagnosed with hypoxic hypercapnic acute respiratory failure he was put on BiPAP, he was given dose of Lasix for lower extremity edema, BNP is around 800, blood pressure is slightly dropping, he will be transferred to ICU He was given Zosyn and albuterol however chest x-ray does not show any active consolidation, Review of Systems Const: Denies: chills Eyes: Denies: change in vision ENMT: Denies: throat pain Card: Denies: chest pain Resp: Reports: dyspnea and wheezing GI: Denies: abdominal pain Musc: Reports: extremity pain Skin/Breast: Reports: rash Neuro: Denies: headache(s) Psych: Reports: anxiety Endo: Denies: polyuria Alpesh/Lymph: Denies: easy bruising Medications/Allergies Home Medications Medication Instructions Recorded Confirmed Last Taken Type albuterol sulfate 90 mcg/actuation 1 inh inhalation QID PRN Shortness 10/09/20 01/05/23 10/25/20 History aerosol inhaler (ProAir HFA) Of Breath apixaban 5 mg tablet 5 mg PO BID@0800,199910/09/20 01/05/23 11/09/21 History levetiracetam 500 mg tablet 500 mg PO BID@0800,2000 10/09/20 01/05/23 11/09/21 History cholecalciferol (vitamin D3) 25 25 mcg PO DAILY ##0 10/26/20 01/05/23 11/09/21 History mcg (1,000 unit) capsule (Vitamin D3) diltiazem HCl 120 mg 120 mg PO Q12H 10/06/21 01/05/23 11/09/21 History capsule,extended release 12 hr levofloxacin 500 mg tablet 500 mg PO DAILY #5 tabs 10/03/22 Unknown Rx furosemide 20 mg tablet (Lasix) 20 mg PO DAILY #60 tabs 11/24/22 01/05/23 Unknown Rx potassium chloride 10 mEq 10 meq PO DAILY #30 tabs 12/02/22 01/05/23 Unknown Rx tablet,extended release budesonide 0.5 mg/2 mL suspension 0.5 mg (2 mL) inhalation BID #120 01/05/23 01/05/23 Unknown Rx for nebulization mL arformoterol 15 mcg/2 mL solution 2 ml inhalation BID #120 mL 01/06/23 Unknown Rx for nebulization tiotropium bromide 1.25 2 puff inhalation DAILY #4 grams 01/12/23 Unknown Rx mcg/actuation mist for inhalation (Spiriva Respimat) guaifenesin 600 mg tablet, 600 mg PO BID #90 tabs 02/13/23 Unknown Rx extended release 12 hr (Mucinex) ferrous sulfate 325 mg PO 1XD 02/21/23 02/21/23 Unknown History furosemide 20 mg tablet mg 02/21/23 02/21/23 Unknown History levetiracetam 500 mg tablet 500 mg PO BID 02/21/23 02/21/23 Unknown History rosuvastatin 40 mg tablet mg 02/21/23 Unknown History Allergies Allergy/AdvReac Type Severity Reaction Status Date / Time No Known Allergies Allergy Verified 02/15/23 12:34 PFSH Acute PFSH: Medical History A-fib Benign essential HTN COPD (chronic obstructive pulmonary disease) Depression Dyspnea on exertion Hx of seizure disorder Iliac artery aneurysm, bilateral DA (obstructive sleep apnea) Peripheral arterial disease Popliteal artery aneurysm Sleep apnea in adult Spinal stenosis Tinnitus Surgical History History of AAA (abdominal aortic aneurysm) repair 2009 History of colonoscopy with polypectomy 2018 History of left inguinal hernia repair 2016 History of PTCA History of vascular surgery rt and left leg 2019 S/P hernia repair incisional Family History Mother Cancer Diabetes Father CAD (coronary artery disease) Cancer Chronic kidney disease (CKD) Diabetes Brother No problems noted. Sister No problems noted. Grandfather Lung disease Denies family history of Clotting disorder Dementia Suicide Anesthesia complication Bleeding disorder Stroke Social History Smoking and tobacco status: former smoker Alcohol intake: never Substance/Drug Use: never Vitals/I&O/Wt Last Vital Signs Temp 98.7 F 02/21/23 03:52 Pulse 112 H 02/21/23 06:49 Resp 18 02/21/23 06:49 BP 95/70 02/21/23 06:49 Pulse Ox 96 02/21/23 06:49 O2 Del Method BiPAP 02/21/23 06:49 O2 Flow Rate 6 02/21/23 04:45 FiO2 45 02/21/23 06:17 Weight last 48 hrs Weight 95.254 kg Physical Exam Narrative: Patient is on BiPAP Appears stated age Lower extremity edema No signs of active vascular ischemia S1, S2 variable A-fib RVR Nonfocal neuro exam Pleasant and cooperative Active wheezing identified Anxious appearing Data 02/21/23 05:07 02/21/23 05:07 Micro: Microbiology 02/21/23 05:19 Blood Culture - Preliminary Blood SPECIMEN COLLECTED 02/21/23 05:07 Blood Culture - Preliminary Blood SPECIMEN COLLECTED A&P Assessment and plan (1) Respiratory failure: Qualifiers: Chronicity: acute Respiratory failure complication: hypoxia and hypercapnia Qualified Code(s): J96.01 - Acute respiratory failure with hypoxia; J96.02 - Acute respiratory failure with hypercapnia (2) Atrial fibrillation with RVR: (3) Acute exacerbation of chronic obstructive pulmonary disease: (4) Cough: (5) Oral candidiasis: (6) Peripheral arterial disease: (7) Benign essential HTN: (8) Solitary pulmonary nodule on lung CT: (9) DA (obstructive sleep apnea): (10) Acute on chronic respiratory failure with hypoxia and hypercapnia: (11) CHF exacerbation: (12) Pulmonary hypertension: Plan Acute hypoxic hypercapnic respiratory failure Acute COPD exacerbation: He carries history of severe COPD, 4 L of oxygen at baseline Chest x-ray does not show any active consolidation Patient is not septic Patient has been getting Solu-Medrol by the EMS that would explain leukocytosis Continue BiPAP admit to ICU I will start patient on ceftriaxone considering COPD exacerbation High lactic acid seems to be due to increased work of breathing and hypoxia A-fib RVR Patient is on anticoagulating agent and takes diltiazem Watch blood pressure closely Requested D-dimer Diastolic CHF exacerbation Pulmonary hypertension Follows up with cardiology outpatient Judicious use of diuretics, patient has received IV Lasix 60 mg in the ER, blood pressure is 95/70 mmHg, Peripheral arterial disease status post bypass right leg in September at [place] No active signs of vascular ischemia I will switch patient to Xopenex and ipratropium Put him on steroids for active wheezing Full code Cardiac diet DVT prophylaxis covered due to chronic use of Eliquis Hypokalemia: Continue potassium supplementation Attestations Medical Necessity Statement*: More than 2 midnights anticipated Diagnoses Respiratory failure J96.01; J96.02 Chronicity: acute Respiratory failure complication: hypoxia and hypercapnia Atrial fibrillation with RVR I48.91 Acute exacerbation of chronic obstructive pulmonary disease J44.1 Cough R05.9 Oral candidiasis B37.0 Peripheral arterial disease I73.9 Benign essential HTN I10 Solitary pulmonary nodule on lung CT R91.1 DA (obstructive sleep apnea) G47.33 Acute on chronic respiratory failure with hypoxia and hypercapnia J96.21; J96.2 2 CHF exacerbation I50.9 Pulmonary hypertension I27.20
[2023-02-21 06:58] LABS: Reflex Lactate Order REFLEX LACTIC ORDERD
[2023-02-21 07:28] LABS: Procalcitonin 0.05 ng/mL (0-0.5)
--- NOTE | 2023-02-21 07:43 | USCV_ITS ---
Kimo Hernandez Age: 72 Gender: M : 1950 Exam Date: 02/21/2023 09:20 Ordering Phys: Elliot Lorenzo MD Technologist: William Bradshaw [place] [facility] [place]: chf BP: / HR: Rhythm: Sinus Technical Quality: Very technically difficult study MEASUREMENTS (Male / Female) Normal Values FINDINGS Left Ventricle Right Ventricle Right Atrium Left Atrium Mitral Valve Aortic Valve Tricuspid Valve Pulmonic Valve Pericardium Aorta IVC CONCLUSIONS The examination is uninterpretable Dr. Grzegorz Jean-Baptiste MD (Electronically Signed) Final Date: 22 February 2023 10:04 S
[2023-02-21 07:47] LABS: D Dimer 7.13 ug/mIFEU (0-0.59)
--- NOTE | 2023-02-21 08:12 | USCV_ITS ---
Kimo Hernandez Age: 72 Gender: M : 1950 Exam Date: 02/21/2023 09:24 Ordering Phys: Clay Coleman MD Technologist: William Bradshaw Exam Location: [facility] [place] Indication: ? pe PROCEDURES: The venous duplex Doppler examination of both lower extremities was performed in the standard fashion. The following venous structures were evaluated: common femoral vein, profunda vein, proximal portion of the greater saphenous vein, superficial femoral vein, and the popliteal vein. In addition, the posterior tibial and peroneal trunk were evaluated. FINDINGS: Normal 2-D Doppler and augmentation and compressibility throughout the lower extremity venous structures. Additional imaging through the proximal calf veins also reveals no thrombus. Limited evaluation of the greater saphenous vein is patent with no thrombus. CONCLUSIONS No DVT bilateral lower extremities. Dr. Ingrid Ca DO (Electronically Signed) Final Date: 21 February 2023 10:47 S
[2023-02-21 08:25] LABS: Lactic Acid level (Lactate) 2.3 mmol/L (0.5-2.2); Troponin(5th) Baseline 38 ng/L (0-15)
[2023-02-21] MEDS: apixaban 5 mg Tablet PO (08:29)
[2023-02-21] MEDS: cefTRIAXone 1,000 MG in sodium chloride 0.9% (plus) 50 ML 100 MG IV (08:29)
[2023-02-21] MEDS: levETIRAcetam 500 mg Tablet PO ×2 (08:29→20:08)
[2023-02-21] MEDS: methylPREDNISolone sod succ 60 MG in water for injection-sterile 0.96 ML 11.52 MG IVP ×2 (08:30→20:08)
[2023-02-21] MEDS: dilTIAZem 60 mg Tablet PO ×3 (08:30→20:07)
[2023-02-21] MEDS: potassium chloride ER 10 mEq Tablet PO (08:30)
[2023-02-21] MEDS: ipratropium 0.5 mg/2.5 mL Neb INHALATION ×2 (08:38→19:13)
[2023-02-21] MEDS: levalbuterol 0.63 mg/3 mL Neb INHALATION ×2 (08:38→19:13)
[2023-02-21 08:48] LABS: Thyroid Stimulating Hormone 1.25 uIU/mL (0.27-4.20)
--- NOTE | 2023-02-21 09:39 | ECG_ITS ---
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 Measurements Intervals [place] Rate: 110 P: 0 VT: 0 QRS: 71 QRSD: 108 T: 17 QT: 357 QTc: 485 Interpretive Statements ATRIAL FIBRILLATION WITH RAPID VENTRICULAR RESPONSE LOW QRS VOLTAGE IN EXTREMITY LEADS [QRS DEFLECTION < 0.5 mV IN LIMB LEADS] MINIMAL ST DEPRESSION [0.025+ mV ST DEPRESSION] ABNORMAL RHYTHM ECG Compared to ECG 02/21/2023 04:03:24 Low QRS voltage now present ST (T wave) deviation now present T-wave abnormality no longer present Possible ischemia no longer present Electronically Signed On 02-21-2023 12:03:35 CDT by Samina Brewster M.D. [id number]
[2023-02-21 10:29] LABS: INR 1.27 (0.8-1.2); Partial Thromboplastin Time 27.9 SECONDS (23.9-36.7)
[2023-02-21 10:30] LABS: Fibrinogen 378 mg/dL (174-498)
[2023-02-21 10:38] LABS: Troponin 5 2HR 35.32 ng/L (0-15)
[2023-02-21 10:39] LABS: D Dimer 5.31 ug/mIFEU (0-0.59); Troponin 5 2HR Delta -2.68 ABS# (0-10)
--- NOTE | 2023-02-21 13:14 | ECG_ITS ---
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
[2023-02-21 13:21] LABS: Adenovirus Not Detected (NOT DETECT); Chlamydia Pneumoniae Not Detected (NOT DETECT); Coronavirus 229E,HKU1,NL63,OC4 Not Detected (NOT DETECT); Human Metapneumovirus Not Detected (NOT DETECT); Human Rhinovirus/Enterovirus Not Detected (NOT DETECT); Influenza A Not Detected (NOT DETECT); Influenza A H1 Not Detected (NOT DETECT); Influenza A H1-2009 Not Detected (NOT DETECT); Influenza A H3 Not Detected (NOT DETECT); Influenza B Not Detected (NOT DETECT); Mycoplasma Pneumoniae Not Detected (NOT DETECT); Parainfluenza Virus Type 1 Not Detected (NOT DETECT); Parainfluenza Virus Type 2 Not Detected (NOT DETECT); Parainfluenza Virus Type 3 Not Detected (NOT DETECT); Parainfluenza Virus Type 4 Not Detected (NOT DETECT); Respiratory Syncytial Virus A Not Detected (NOT DETECT); Respiratory Syncytial Virus B Not Detected (NOT DETECT); SARS-COV-2 Not Detected (NOT DETECT)
[2023-02-21 14:52] LABS: Troponin 5 6HR 27.28 ng/L (0-15)
--- NOTE | 2023-02-21 14:52 | P.PN_ITS ---
Subjective Subjective: He reports he is doing slightly better compared to yesterday. He is more alert, yesterday his states he was getting quite lethargic. He denies chest pain or pressure. Vitals/I&O/Wt Last Vital Signs Temp 98.7 F 02/21/23 03:52 Pulse 110 H 02/21/23 08:52 Resp 16 02/21/23 08:00 BP 95/70 02/21/23 06:49 Pulse Ox 93 02/21/23 08:00 O2 Del Method Nasal Cannula 02/21/23 08:00 O2 Flow Rate 3 02/21/23 08:00 FiO2 45 02/21/23 06:17 02/20/23 02/21/23 02/21/23 22:59 06:59 14:59 Intake Total 50 / 50 Balance 50 / 50 Weight last 48 hrs Weight 95.254 kg Physical Exam Narrative: Accompanied by family. Const: COMMON NORMALS: patient oriented x3 and alert GENERAL APPEARANCE: c ooperative ORIENTATION/CONSCIOUSNESS: Yes awake HENMT: COMMON NORMALS: oropharynx normal Neck/C-Spine: COMMON NORMALS: no JVD Resp: COMMON NORMALS: normal respiratory effort AUSCULTATION: diminished lung sounds Cardio: COMMON NORMALS: no JVD, regular rhythm, S1 normal heart sound present, S2 normal heart sound present and No murmurs present (Cardio) RHYTHM: regular rhythm HEART SOUNDS: S1 normal heart sound present and S2 normal heart sound present GI: COMMON NORMALS: Normal to inspection, nondistended, normoactive bowel sounds present, Soft to palpation and non-tender PALPATION: Yes Soft to palpation Extremity: COMMON NORMALS: no joint enlargement and no pedal edema Neuro: COMMON NORMALS: patient oriented x3 and moves all extremities SENSORIUM/ORIENTATION: Yes alert Skin: COMMON NORMALS: no rashes or lesions noted GENERAL SKIN EXAM: no rashes or lesions noted Urinary Catheter Management: Hurd: Cath Placed During This Visit: yes Urinary Catheter Date of Insertion: 02/21/23 Urinary Catheter Time of Insertion: 09:13 Data 02/21/23 05:07 02/21/23 05:07 Micro: Microbiology 02/21/23 05:19 Blood Culture - Preliminary Blood SPECIMEN COLLECTED 02/21/23 05:07 Blood Culture - Preliminary Blood SPECIMEN COLLECTED A&P Assessment and plan (1) Respiratory failure: Qualifiers: Chronicity: acute Respiratory failure complication: hypoxia and hypercapnia Qualified Code(s): J96.01 - Acute respiratory failure with hypoxia; J96.02 - Acute respiratory failure with hypercapnia (2) Atrial fibrillation with RVR: (3) Acute exacerbation of chronic obstructive pulmonary disease: (4) Cough: (5) Oral candidiasis: (6) Peripheral arterial disease: (7) Benign essential HTN: (8) Solitary pulmonary nodule on lung CT: (9) DA (obstructive sleep apnea): (10) Acute on chronic respiratory failure with hypoxia and hypercapnia: (11) CHF exacerbation: (12) Pulmonary hypertension: Plan Acute hypoxic hypercapnic respiratory failure Semiformed, wean down on BiPAP. Down to nasal cannula. Discussed with him and family, entered parameters to target saturation 88-92%. Avoid hyperoxia as he is at risk of weight gain reaccumulating CO2, hypercapnic /respiratory acidosis. He appears to be diuresing well, and negative balance, -980 mL. Continue Lasix. Monitor ALEK, weights, reassess renal function. Continue treatment of COPD exacerbation, CHF exacerbation. With underlying pulmonary hypertension. Currently on 4 L oxygen at home. Add oxygen humidifier. Obtained respiratory viral panel, noted negative. Discussed with him and his consideration of possible PE, although less likely given he has been on anticoagulation. Discussed with them switch anticoa gulation with Lovenox while here. Check lower extremity duplex. lactic acid noted with improvement down from 3.4-2.3. Acute COPD exacerbation: severe exacerbation of COPD, with respiratory failur e,continue ceftriaxone, methylprednisolone. Sputum culture if able to collect. Breathing treatments. He carries history of severe COPD, 4 L of oxygen at baseline Chest x-ray Noted and discussed leukocytosis noted 14.2. Afebrile. Follow-up blood culture. Procalcitonin noted 0.05. Elevated D-dimer: He reported having some bluish/purplish discoloration of kneecaps, feet in ER. Currently with improvement. I do not appreciate any blue discoloration of his LE. Appear perfused, warm To touch. does not appear to have livedo reticularis. Discussed with them obtaining DIC panel. Noted. INR 1.27. D- dimer better at 5.31. Fibrinogen normal at 378. Follow-up DIC panel. States it was quite cold in the ER room, consideration of possible Raynaud's. we will request vascular checks given PVD. Suspected likely secondary to atrial fibrillation. Soft blood pressure: 95/70. Admitting documentation reviewed, noted lower probability of sepsis. WBC noted, afebrile. Chest x-ray clear. Procalcitonin noted 0.05. TSH 1.25. Obtained a random cortisol, 23.5. He is on diltiazem. For now maintain blood pressure, but if worsening, stop diltiazem, consider alternative agent. TTE noted obtained, pending read. He is chest pain-free. discussed with him and his consideration of possible cardiac ischemia.Obtained troponin series, so far with mild elevation of suspected demand ischemia, So far not suggestive of acute OK. Complete series. A-fib RVR Potassium noted to 3.9. Check magnesium. Continue Cardizem for now, so far tolerating switch to 60 mg every 6. Anticipate that atrial fibrillation should improve with improvement in respiratory failure, COPD exacerbation. Continue treatment of underlying problem as above. Patient is on anticoagulating agent and takes diltiazem Switch to Lovenox. Diastolic CHF exacerbation: Continue Lasix. Monitor ALEK. Reassess renal function. Monitor blood pressures. TTE obtained, pending read. Complete troponin series. Pulmonary hypertension Follows up with cardiology outpatient Peripheral arterial disease status post bypass right leg in September at [place] No active signs of vascular ischemia Full code Cardiac diet DVT prophylaxis covered due to chronic use of Eliquis Hypokalemia: Continue potassium supplementation Attestations Medical Necessity Statement*: Continue admission for assessment and management of respiratory failure, serious impression of COPD, CHF decompensation, with soft blood pressure. Coding Level of Care Code Critical Care >/= 30 minutes Critical care time (in minutes): 35 The high probability of a clinically significant, sudden or life threatening deterioration, as referenced in this documentation, required my full and direct attention, intervention and personal management. The critical care time shown is in addition to time spent performing any reported separately billable procedures and includes the following: [x] Data and vital sign review and interpretation [x ] Patient assessment, examination and intervention [x] Medication orders and management [x] Patient/Family updates as able [x] Care Coordination and Docume ntation. Diagnoses Respiratory failure J96.01; J96.02 Chronicity: acute Respiratory failure complication: hypoxia and hypercapnia Atrial fibrillation with RVR I48.91 Acute exacerbation of chronic obstructive pulmonary disease J44.1 Cough R05.9 Oral candidiasis B37.0 Peripheral arterial disease I73.9 Benign essential HTN I10 Solitary pulmonary nodule on lung CT R91.1 DA (obstructive sleep apnea) G47.33 Acute on chronic respiratory failure with hypoxia and hypercapnia J96.21; J96.22 CHF exacerbation I50.9 Pulmonary hypertension I27.20
[2023-02-21] MEDS: enoxaparin 100 mg/mL Syringe SUBCUT (21:05)
[2023-02-22] VITALS (151 sets, daily range): BP systolic 95–132; BP diastolic 65–89; PULSE 54–151; RESP 0–37; TEMP 36.1–37.2; O2SAT 83–97
[2023-02-22] MEDS: dilTIAZem 60 mg Tablet PO ×4 (01:42→18:56)
[2023-02-22 03:10] LABS: ABG PH Result 7.36 (7.35-7.45); Arterial Blood Gas Hematocrit 41.1 % (42-52); Base Excess ABG 10.2 mmol/L (-2.0-2.0); Blood Gas Allen Test Pos; Blood Gas Sample Site Radial, right; Blood Gas Sample Type Arterial; HCO3 ABG 38.5 mmol/L (22-26); Oxygen Device NC
[2023-02-22 04:44] LABS: Basophils % 0.1 %; Hematocrit 41.9 % (42.0-52.0); Hemoglobin 13.1 g/dL (11.7-16.6); Lymphocytes # 0.4 10^3/uL (0.8-4.8); Lymphocytes % 2.8 %; Mean Corpuscular HGB Conc 31.3 g/dL (30.0-36.0); Mean Corpuscular Hemoglobin 29.3 pg (28.0-34.0); Mean Corpuscular Volume 93.7 fl (80-94); Mean Platelet Volume 10.9 fL (7.4-10.4); Monocytes # 0.3 10^3/uL (0.2-0.9); Monocytes % 2.7 %; Neutrophils # 11.61 10^3/uL (1.8-7.7); Neutrophils % 93.9 %; Nucleated Red Blood Cells % 0 %; Platelet Count 181 10^3/cmm (130-400); Red Blood Count 4.47 10^6/uL (4.1-5.3); Red Cell Distribution Width 14.2 % (12.1-15.1); White Blood Count 12.4 10^3/uL (4.0-10.0)
[2023-02-22 05:08] LABS: Anion Gap 10.8 (5-19); Blood Urea Nitrogen 22 mg/dL (8-23); C Reactive Protein 6.6 mg/L (0.0-4.9); Calcium 9.3 mg/dL (8.5-10.5); Carbon Dioxide 37 mmol/L (22-29); Chloride 96 mmol/L (98-107); Glucose 167 mg/dL (65-115); Osmolality Calculated 295 mOsm/kg (285-295); Phosphorus 3.8 mg/dL (2.5-4.5); Potassium 4.8 mmol/L (3.5-5.1); Sodium 139 mmol/L (136-145)
[2023-02-22] MEDS: potassium chloride ER 10 mEq Tablet PO (08:24)
[2023-02-22] MEDS: cefTRIAXone 1,000 MG in sodium chloride 0.9% (plus) 50 ML 100 MG IV (08:25)
[2023-02-22] MEDS: enoxaparin 100 mg/mL Syringe SUBCUT ×2 (08:25→20:10)
[2023-02-22] MEDS: methylPREDNISolone sod succ 60 MG in water for injection-sterile 0.96 ML 11.52 MG IVP ×2 (08:27→18:55)
[2023-02-22] MEDS: FUROsemide 10 mg/mL SDV 4mL 40 MG IVP (08:27)
[2023-02-22] MEDS: levalbuterol 0.63 mg/3 mL Neb INHALATION (08:39)
[2023-02-22] MEDS: ipratropium 0.5 mg/2.5 mL Neb INHALATION (08:39)
[2023-02-22] MEDS: levETIRAcetam 500 mg Tablet PO ×2 (08:51→20:10)
[2023-02-22] MEDS: guaiFENesin 600 mg Tablet 1200 MG PO ×2 (10:52→17:47)
--- NOTE | 2023-02-22 20:13 | PM.PN ---
Subjective Subjective: He feels that he has been improving. He has been coughing. Sometimes cough is productive, but bring up sputum with some difficulty. Vitals/I&O/Wt Last Vital Signs Temp 98.9 F 02/22/23 20:02 Pulse 83 02/22/23 20:02 Resp 17 02/22/23 20:02 BP 125/87 02/22/23 20:02 Pulse Ox 93 02/22/23 20:02 O2 Del Method Nasal Cannula 02/22/23 13:49 O2 Flow Rate 5 02/22/23 13:49 FiO2 45 02/21/23 06:17 02/22/23 02/22/23 02/22/23 06:59 14:59 22:59 Intake Total 0 / 861.92 50.96 / 50.96 0.96 / 51.92 Output Total 250 / 1400 1075 / 1075 Balance -250 / -538.08 -1024.04 / -1024.04 0.96 / -1023.08 Weight last 48 hrs Weight 95.254 kg Physical Exam Narrative: Accompanied by family. Const: COMMON NORMALS: patient oriented x3 and alert GENERAL APPEARANCE: cooperative ORIENTATION/CONSCIOUSNESS: Yes awake HENMT: COMMON NORMALS: oropharynx normal Neck/C-Spine: COMMON NORMALS: no JVD Resp: COMMON NORMALS: normal respiratory effort and clear to auscultation bilaterally AUSCULTATION: clear to auscultation bilaterally and diminished lung sounds Cardio: COMMON NORMALS: no JVD, regular rhythm, S1 normal heart sound present, S2 normal heart sound present and No murmurs present (Cardio) RHYTHM: regular rhythm HEART SOUNDS: S1 normal heart sound present and S2 normal heart sound present GI: COMMON NORMALS: Normal to inspection, nondistended, normoactive bowel sounds present, Soft to palpation and non-tender PALPATION: Yes Soft to palpation Extremity: COMMON NORMALS: no joint enlargement and no pedal edema Neuro: COMMON NORMALS: patient oriented x3 and moves all extremities SENSORIUM/ORIENTATION: Yes alert Skin: COMMON NORMALS: no rashes or lesions noted GENERAL SKIN EXAM: no rashes or lesions noted Urinary Catheter Management: Hurd: Cath Placed During This Visit: yes Reason for Continuing Indwelling Catheter: Accurate Measurement of Urinary Output in Critically Ill Patients Urinary Catheter Date of Insertion: 02/21/23 Urinary Catheter Time of Insertion: 09:13 Data 02/22/23 03:46 02/22/23 03:46 Micro: Microbiology 02/22/23 10:50 Gram Stain - Final Sputum - Expectorated Sputum 02/21/23 05:19 Blood Culture - Preliminary Blood NEGATIVE TO DATE 02/21/23 05:07 Blood Culture - Preliminary Blood NEGATIVE TO DATE A&P Assessment and plan (1) Respiratory failure: Qualifiers: Chronicity: acute Respiratory failure complication: hypoxia and hypercapnia Qualified Code(s): J96.01 - Acute respiratory failure with hypoxia; J96.02 - Acute respiratory failure with hypercapnia (2) Atrial fibrillation with RVR: (3) Acute exacerbation of chronic obstructive pulmonary disease: (4) Cough: (5) Oral candidiasis: (6) Peripheral arterial disease: (7) Benign essential HTN: (8) Solitary pulmonary nodule on lung CT: (9) DA (obstructive sleep apnea): (10) Acute on chronic respiratory failure with hypoxia and hypercapnia: (11) CHF exacerbation: (12) Pulmonary hypertension: Plan Acute hypoxic hypercapnic respiratory failure Improving respiratory failure, weaned off BiPAP. Continues on nasal cannula. Cough, but difficult to bring up phlegm. Added Mucinex. flutter valve. Cough also bothersome Add Tessalon Perles. WBC count down today 12.4. Still primarily neutrophilic, 11.61. Afebrile. No sign of sepsis today. Blood pressure improved. Move out of ICU. Discussed with case management. Continue Lasix, - 870 mL. Continue treatment of COPD exacerbation, CHF exacerbation. With underlying pulmonary hypertension. Currently on 4 L oxygen at home. Noted negative lower extremity duplex, discussed with him. lactic acid noted with improvement down from 3.4-2.3. Acute COPD exacerbation: Weaned off BiPAP. Continue nightly CPAP for DA. Discussed with RT. severe exacerbation of COPD, with respiratory failure,continue ceftriaxone, Continuemethylprednisolone. Sputum culture requested. Breathing treatments. He carries history of severe COPD, 4 L of oxygen at baseline blood culture noted negative to date. Respiratory culture pending. Noted moderate white blood cells. No organisms. Elevated D-dimer: No evidence of DIC. No recurrence of bluish discoloration of his lower extremities. No complaints about his feet. Warm and appear perfused. Continue Lovenox. Soft blood pressure: Resolved. Transfer out of ICU.A TTE noted unfortunately uninterpretable. Troponin withmild elevation of suspected demand ischemia, A-fib RVR Potassium noted to 4.8. Check magnesium. Continue Cardizem. Monitor on telemetry. Anticipate that atrial fibrillation should improve with improvement in respiratory failure, COPD exacerbation. Continue treatment of underlying problem as above. Patient is on anticoagulating agent and takes diltiazem Lovenox. Diastolic CHF exacerbation: Continue Lasix. Monitor ALEK. Noted BUN 22, creatinine 0.7. Potassium 4.8. Reassess chemistry. Magnesium noted normal. Reassess renal function. Monitor blood pressures. TTE obtained, pending read. Complete troponin series. Pulmonary hypertension Follows up with cardiology outpatient Peripheral arterial disease status post bypass right leg in September at [place] No active signs of vascular ischemia Full code Cardiac diet DVT prophylaxis covered due to chronic use of Eliquis Hypokalemia: Continue potassium supplementation Attestations Medical Necessity Statement*: Continue admission for assessment management of severe exacerbation of COPD, improving respiratory failure. Diagnoses Respiratory failure J96.01; J96.02 Chronicity: acute Respiratory failure complication: hypoxia and hypercapnia Atrial fibrillation with RVR I48.91 Acute exacerbation of chronic obstructive pulmonary disease J44.1 Cough R05.9 Oral candidiasis B37.0 Peripheral arterial disease I73.9 Benign essential HTN I10 Solitary pulmonary nodule on lung CT R91.1 DA (obstructive sleep apnea) G47.33 Acute on chronic respiratory failure with hypoxia and hypercapnia J96.21; J96.22 CHF exacerbation I50.9 Pulmonary hypertension I27.20
[2023-02-23] VITALS (19 sets, daily range): BP systolic 115–130; BP diastolic 76–86; PULSE 52–112; RESP 16–24; TEMP 36.3–37.1; O2SAT 84–98
[2023-02-23] MEDS: dilTIAZem 60 mg Tablet PO ×4 (00:58→20:16)
[2023-02-23 05:53] LABS: Basophils % 0.1 %; Hematocrit 41.8 % (42.0-52.0); Hemoglobin 12.8 g/dL (11.7-16.6); Lymphocytes # 0.4 10^3/uL (0.8-4.8); Lymphocytes % 2.8 %; Mean Corpuscular HGB Conc 30.6 g/dL (30.0-36.0); Mean Corpuscular Hemoglobin 28.6 pg (28.0-34.0); Mean Corpuscular Volume 93.5 fl (80-94); Mean Platelet Volume 11.1 fL (7.4-10.4); Monocytes # 0.5 10^3/uL (0.2-0.9); Monocytes % 3.1 %; Neutrophils # 14.62 10^3/uL (1.8-7.7); Neutrophils % 93.6 %; Nucleated Red Blood Cells % 0 %; Platelet Count 216 10^3/cmm (130-400); Red Blood Count 4.47 10^6/uL (4.1-5.3); Red Cell Distribution Width 14.2 % (12.1-15.1); White Blood Count 15.6 10^3/uL (4.0-10.0)
[2023-02-23 06:11] LABS: Alanine Aminotransferase 16 U/L (0-41); Albumin Level 3.8 g/dL (3.5-5.2); Alkaline Phosphatase 61 U/L (40-130); Anion Gap 10.9 (5-19); Aspartate Amino Transferase 17 U/L (0-40); Blood Urea Nitrogen 27 mg/dL (8-23); Calcium 9.4 mg/dL (8.5-10.5); Carbon Dioxide 38 mmol/L (22-29); Chloride 95 mmol/L (98-107); Globulin 2.6 g/dL (1.3-4.6); Glucose 143 mg/dL (65-115); Osmolality Calculated 296 mOsm/kg (285-295); Potassium 4.9 mmol/L (3.5-5.1); Sodium 139 mmol/L (136-145); Total Bilirubin 0.5 mg/dL (0.15-1.2); Total Protein 6.4 g/dL (6.6-8.7)
[2023-02-23] MEDS: methylPREDNISolone sod succ 60 MG in water for injection-sterile 0.96 ML 11.52 MG IVP ×3 (07:38→20:55)
[2023-02-23] MEDS: levETIRAcetam 500 mg Tablet PO ×2 (07:39→20:16)
[2023-02-23] MEDS: guaiFENesin 600 mg Tablet 1200 MG PO ×2 (08:37→17:32)
[2023-02-23] MEDS: benzonatate 100 mg Capsule 200 MG PO (08:37)
[2023-02-23] MEDS: cefTRIAXone 1,000 MG in sodium chloride 0.9% (plus) 50 ML 100 MG IV (08:37)
[2023-02-23] MEDS: levalbuterol 0.63 mg/3 mL Neb INHALATION ×3 (09:18→22:23)
[2023-02-23] MEDS: ipratropium 0.5 mg/2.5 mL Neb INHALATION ×3 (09:18→22:22)
[2023-02-23] MEDS: enoxaparin 100 mg/mL Syringe SUBCUT ×2 (09:46→20:16)
[2023-02-23] MEDS: FUROsemide 10 mg/mL SDV 4mL 40 MG IVP (09:47)
[2023-02-23] MEDS: sennosides-docusate Tablet 1 TAB PO (09:48)
[2023-02-23] MEDS: potassium chloride ER 10 mEq Tablet PO (09:48)
[2023-02-23] MEDS: sodium chloride 3.5% neb 4 mL Neb INHALATION ×2 (10:34→20:05)
--- NOTE | 2023-02-23 10:41 | P.PN_ITS ---
Subjective Subjective: This morning he is coughing more and having somewhat increased work of breathing, bringing up phlegm although with some difficulty. Vitals/I&O/Wt Last Vital Signs Temp 97.4 F L 02/23/23 07:34 Pulse 112 H 02/23/23 09:26 Resp 16 02/23/23 09:26 BP 120/82 02/23/23 07:34 Pulse Ox 91 02/23/23 09:26 O2 Del Method Nasal Cannula 02/23/23 09:26 O2 Flow Rate 5 02/23/23 09:26 FiO2 4 02/23/23 07:47 02/22/23 02/23/23 02/23/23 22:59 06:59 14:59 Intake Total 120.96 / 171.92 290.96 / 290.96 Output Total 300 / 1375 Balance 120.96 / -903.08 -300 / -1203.08 290.96 / 290.96 Physical Exam Const: COMMON NORMALS: patient oriented x3 and alert GENERAL APPEARANCE: cooperative ORIENTATION/CONSCIOUSNESS: Yes awake HENMT: COMMON NORMALS: oropharynx normal Neck/C-Spine: COMMON NORMALS: no JVD Resp: COMMON NORMALS: normal respiratory effort and clear to auscultation bilaterally AUSCULTATION: clear to auscultation bilaterally and diminished lung sounds Cardio: COMMON NORMALS: no JVD, regular rhythm, S1 normal heart sound present, S2 normal heart sound present and No murmurs present (Cardio) RHYTHM: regular rhythm HEART SOUNDS: S1 normal heart sound present and S2 normal heart sound present GI: COMMON NORMALS: Normal to inspection, nondistended, normoactive bowel sounds present, Soft to palpation and non-tender PALPATION: Yes Soft to palpation Extremity: COMMON NORMALS: no joint enlargement and no pedal edema OTHER: Lower extremities are warm and perfused. Neuro: COMMON NORMALS: patient oriented x3 and moves all extremities SEN SORIUM/ORIENTATION: Yes alert Skin: COMMON NORMALS: no rashes or lesions noted GENERAL SKIN EXAM: no rashes or lesions noted Urinary Catheter Management: Hurd: Cath Placed During This Visit: yes Reason for Continuing Indwelling Catheter: Acute Urinary Retention or Obstruction Urinary Catheter Date of Insertion: 02/21/23 Urinary Catheter Time of Insertion: 09:13 Data 02/23/23 05:02 02/23/23 05:02 Micro: Microbiology 02/22/23 10:50 Gram Stain - Final Sputum - Expectorated Sputum A&P Assessment and plan (1) Respiratory failure: Qualifiers: Chronicity: acute Respiratory failure complication: hypoxia and hypercapnia Qualified Code(s): J96.01 - Acute respiratory failure with hypoxia; J96.02 - Acute respiratory failure with hypercapnia (2) Atrial fibrillation with RVR: (3) Acute exacerbation of chronic obstructive pulmonary disease: (4) Cough: (5) Oral candidiasis: (6) Peripheral arterial disease: (7) Benign essential HTN: (8) Solitary pulmonary nodule on lung CT: (9) DA (obstructive sleep apnea): (10) Acute on chronic respiratory failure with hypoxia and hypercapnia: (11) CHF exacerbation: (12) Pulmonary hypertension: Plan Acute hypoxic hypercapnic respiratory failure Somewhat more increased work of breathing today. Producing phlegm and is able to get it up slightly better, feels mucinex and flutter valve are working, but still tenacious secretions and wheezing. Will add hypertonic saline nebs. Hold further Lasix for now. Volume status also appears much better. As he is still wheezing, with diminished air entry, will increase steroid frequency to Q6h. WBC noted 15.6, neutrophilic 14.62. Mild lymphopenia 0.4. He is afebrile. Sputum culture pending, noted no organisms so far. Will empirically broaden antibiotics for now with meropenem and vancomycin empirically. Check MRSA pcr. With all of the above overall with some worsening today, worsening hypoxia, had to go up to 5 L nasal cannula oxygen. Wean down as tolerating Continue CPAP nightly for DA. Continue treatment of COPD exacerbation, CHF exacerbation now diuresed. With underlying pulmonary hypertension. Noted negative lower extremity duplex lactic acid noted with improvement down from 3.4-2.3. Acute COPD exacerbation: As above. Elevated D-dimer: Mild purplish discoloration of kneecaps. LE warm and perfused. No evidence of DIC. No DVT. Continue Lovenox. Soft blood pressure: Resolved. TTE noted unfortunately uninterpretable. Troponin withmild elevation of suspected demand ischemia. A-fib RVR more tachycardic on last vitals check but overall controlled. Potassium noted 4.9. Continue Cardizem. Monitor on telemetry. Anticipate that atrial fibrillation should improve with improvement in respiratory failure, COPD exacerbation. Continue treatment of underlying problem as above. Patient is on anticoagulating agent and takes diltiazem Therapeutic Lovenox. Diastolic CHF exacerbation: Now appears more euvolemic. Hold further Lasix. Reassess volume status, renal function. Noted some elevation of BUN to 27. Creatinine 0.8. With reassessment we will consider whether to hold Lasix further or resume oral diuretic. Reassess renal function. Monitor blood pressures. TTE obtained, unfortunately not a useful study. Pulmonary hypertension Follows up with cardiology outpatient Peripheral arterial disease status post bypass right leg in September at [place]. Monitor extremities. Continue follow-up. Hypokalemia: Continue potassium supplementation Discussed with case management. Attestations Medical Necessity Statement*: Continue admission for assessment management of severe exacerbation of COPD, slow to improve respiratory failure. Diagnoses Respiratory failure J96.01; J96.02 Chronicity: acute Respiratory failure complication: hypoxia and hypercapnia Atrial fibrillation with RVR I48.91 Acute exacerbation of chronic obstructive pulmonary disease J44.1 Cough R05.9 Oral candidiasis B37.0 Peripheral arterial disease I73.9 Benign essential HTN I10 Solitary pulmonary nodule on lung CT R91.1 DA (obstructive sleep apnea) G47.33 Acute on chronic respiratory failure with hypoxia and hypercapnia J96.21; J96.22 CHF exacerbation I50.9 Pulmonary hypertension I27.20
--- NOTE | 2023-02-23 10:43 | PC.CHAP ---
Pastoral Care Encounter/Spiritual Assessment Type of Contact [] Declined head of music visit [] Patient/Family/Request visit [] Outpatient visit [] Follow-up visit [] Physician referral [] Code/Alert [x] Routine visit [] Staff referral [] Actively dying [] Patient sleeping [] Family support [] [] Out of room [] Palliative care [] [x] Receiving care in room [] Pre-surgical visit [] Trauma [] Long length of stay [] ICU visit [] Other: Relational/Emotional Strength [x] Patient feels connected with others/family/visitors/staff [] Distress [] Loneliness/isolation [] Abandonment Spirituality of Patient [x] Person of Jessie [] Attends Pentecostal of their Jessie [x] Believes in Prayer [] Reads Bible or Orthodoxy materials [] There are Spiritual issues to be addressed Greenskeeper Supervisor Interventions [x] Prayer [x] Active listening [x] Non-anxious presence [x] Spiritual/emotional support [] Crisis/trauma care [x] Spiritual counseling [] Bereavement support [] Provided bereavement packet [] Provided Bible/devotional materials [] Provided toy/stuffed animal, coloring book to patient or family member [] Provided Communion [] Anointing/[place] [] Salvation [x] Completed spiritual assessment [] Other: Impact on Illness or Injury [] Angry [] Fearful [] Anxious [] Often cries [] Exhaustion [] Unable to work [] Unable to attend sabianist [] Unable to walk/stand [] Unable to read [] Unable to drive [] Unable to eat/drink [] Unable to sleep [] Unable to be with family [] Patient intubated [] Other: Summary neck in some pain well need some reovery has a good attitude well go home Time spent with patient 10 mins
[2023-02-23] MEDS: meropenem 1,000 MG in sodium chloride 0.9% (plus) 50 ML 100 MG IV ×2 (11:13→17:32)
[2023-02-23] MEDS: vancomycin 1,500 MG/300 ML PIGGYBACK 200 MG IV ×2 (12:02→22:21)
[2023-02-24] VITALS (13 sets, daily range): BP systolic 114–156; BP diastolic 74–86; PULSE 55–114; RESP 16–24; TEMP 36.4–36.9; O2SAT 88–97
[2023-02-24] MEDS: dilTIAZem 60 mg Tablet PO ×4 (01:34→20:58)
[2023-02-24] MEDS: meropenem 1,000 MG in sodium chloride 0.9% (plus) 50 ML 100 MG IV ×3 (01:35→18:04)
[2023-02-24] MEDS: methylPREDNISolone sod succ 60 MG in water for injection-sterile 0.96 ML 11.52 MG IVP ×4 (02:58→21:57)
[2023-02-24 05:49] LABS: Basophils % 0.1 %; Hematocrit 40.9 % (42.0-52.0); Hemoglobin 12.8 g/dL (11.7-16.6); Lymphocytes # 0.3 10^3/uL (0.8-4.8); Lymphocytes % 2.6 %; Mean Corpuscular HGB Conc 31.3 g/dL (30.0-36.0); Mean Corpuscular Hemoglobin 29.2 pg (28.0-34.0); Mean Corpuscular Volume 93.4 fl (80-94); Mean Platelet Volume 10.8 fL (7.4-10.4); Monocytes # 0.3 10^3/uL (0.2-0.9); Monocytes % 2.5 %; Neutrophils # 11.52 10^3/uL (1.8-7.7); Neutrophils % 94.1 %; Nucleated Red Blood Cells % 0 %; Platelet Count 217 10^3/cmm (130-400); Red Blood Count 4.38 10^6/uL (4.1-5.3); Red Cell Distribution Width 14.3 % (12.1-15.1); White Blood Count 12.2 10^3/uL (4.0-10.0)
[2023-02-24 06:06] LABS: Alanine Aminotransferase 58 U/L (0-41); Albumin Level 3.6 g/dL (3.5-5.2); Alkaline Phosphatase 65 U/L (40-130); Anion Gap 10.6 (5-19); Aspartate Amino Transferase 34 U/L (0-40); Blood Urea Nitrogen 25 mg/dL (8-23); Calcium 9.3 mg/dL (8.5-10.5); Carbon Dioxide 39 mmol/L (22-29); Chloride 94 mmol/L (98-107); Globulin 2.6 g/dL (1.3-4.6); Glucose 148 mg/dL (65-115); Osmolality Calculated 295 mOsm/kg (285-295); Potassium 4.6 mmol/L (3.5-5.1); Sodium 139 mmol/L (136-145); Total Bilirubin 0.6 mg/dL (0.15-1.2); Total Protein 6.2 g/dL (6.6-8.7)
[2023-02-24] MEDS: levalbuterol 0.63 mg/3 mL Neb INHALATION ×3 (08:35→20:46)
[2023-02-24] MEDS: ipratropium 0.5 mg/2.5 mL Neb INHALATION ×3 (08:35→20:46)
[2023-02-24] MEDS: sodium chloride 3.5% neb 4 mL Neb INHALATION ×2 (08:35→20:46)
[2023-02-24] MEDS: potassium chloride ER 10 mEq Tablet PO (09:37)
[2023-02-24] MEDS: sennosides-docusate Tablet 1 TAB PO (09:37)
[2023-02-24] MEDS: guaiFENesin 600 mg Tablet 1200 MG PO ×2 (09:37→18:04)
[2023-02-24] MEDS: enoxaparin 100 mg/mL Syringe SUBCUT ×2 (09:40→20:58)
[2023-02-24] MEDS: levETIRAcetam 500 mg Tablet PO ×2 (09:41→21:02)
--- NOTE | 2023-02-24 11:31 | PC.SOCIAL ---
IMM Update: IMM Update. Page 2 of IMM updated/reviewed with pt at 0943. Copy provided and placed in pt file.
[2023-02-24] MEDS: vancomycin 1,500 MG/300 ML PIGGYBACK 200 MG IV ×2 (11:45→22:49)
--- NOTE | 2023-02-24 20:20 | P.PN_ITS ---
Subjective Subjective: Today breathing is slightly better. Sputum subsided somewhat, although he feels it still there, and still difficult to bring up. Still gets short of breath. Flutter valve is helping. Vitals/I&O/Wt Last Vital Signs Temp 97.7 F 02/24/23 19:00 Pulse 80 02/24/23 19:00 Resp 17 02/24/23 19:00 BP 132/86 02/24/23 19:00 Pulse Ox 90 02/24/23 19:00 O2 Del Method Nasal Cannula 02/24/23 19:00 O2 Flow Rate 4 02/24/23 14:00 FiO2 45 02/23/23 22:26 02/24/23 02/24/23 02/24/23 06:59 14:59 22:59 Intake Total 350.96 / 1283.84 890.96 / 890.96 810.96 / 1701.92 Output Total 800 / 800 Balance 350.96 / -141.16 890.96 / 890.96 10.96 / 901.92 Physical Exam Const: COMMON NORMALS: patient oriented x3 and alert GENERAL APPEARANCE: cooperative ORIENTATION/CONSCIOUSNESS: Yes awake HENMT: COMMON NORMALS: oropharynx normal Neck/C-Spine: COMMON NORMALS: no JVD Resp: COMMON NORMALS: normal respiratory effort and clear to auscultation bilaterally AUSCULTATION: clear to auscultation bilaterally and diminished lung sounds Cardio: COMMON NORMALS: no JVD, regular rhythm, S1 normal heart sound present, S2 normal heart sound present and No murmurs present (Cardio) RHYTHM: regular rhythm HEART SOUNDS: S1 normal heart sound present and S2 normal heart sound present GI: COMMON NORMALS: Normal to inspection, nondistended, normoactive bowel soun ds present, Soft to palpation and non-tender PALPATION: Yes Soft to palpation Extremity: COMMON NORMALS: no joint enlargement and no pedal edema OTHER: Lower extremities are warm and perfused. Some chronic purplish discoloration/fluid on kneecaps, he states has been there mostly ever since he had his bypass surgery. Sometimes it gets worse, although he did not pay attention to see if it is related to cold temperature. Neuro: COMMON NORMALS: patient oriented x3 and moves all extremities SENSOR IUM/ORIENTATION: Yes alert Skin: COMMON NORMALS: no rashes or lesions noted GENERAL SKIN EXAM: no rashes or lesions noted Urinary Catheter Management: Hurd: Cath Placed During This Visit: yes Reason for Continuing Indwelling Catheter: Acute Urinary Retention or Obstruction Urinary Catheter Date of Insertion: 02/21/23 Urinary Catheter Time of Insertion: 09:13 Data 02/24/23 05:16 02/24/23 05:16 Micro: Microbiology 02/23/23 11:14 MRSA Culture - Final Nose A&P Assessment and plan (1) Respiratory failure: Qualifiers: Chronicity: acute Respiratory failure complication: hypoxia and hypercapnia Qualified Code(s): J96.01 - Acute respiratory failure with hypoxia; J96.02 - Acute respiratory failure with hypercapnia (2) Atrial fibrillation with RVR: (3) Acute exacerbation of chronic obstructive pulmonary disease: (4) Cough: (5) Oral candidiasis: (6) Peripheral arterial disease: (7) Benign essential HTN: (8) Solitary pulmonary nodule on lung CT: (9) DA (obstructive sleep apnea): (10) Acute on chronic respiratory failure with hypoxia and hypercapnia: (11) CHF exacerbation: (12) Pulmonary hypertension: Plan Acute hypoxic hypercapnic respiratory failure Continued respiratory failure, continues to require 4 L nasal cannula oxygen. Still significant bronchospastic response, severe COPD exacerbation, will add budesonide nebs. Continue hypertonic saline nebs. Continue pulmonary toilet, Mucinex, flutter valve, humidifier added to oxygen. Continue systemic steroids. Discussed with him broaden antibiotic coverage with meropenem, vancomycin. Reviewed sputum culture, mixed ermelinda so far. WBC noted 12.2, mostly neutrophilic 11.52. Noted negative MRSA PCR. Discussed with RT. Discussed with case management. Continue CPAP nightly for DA. Continue treatment of COPD exacerbation, CHF exacerbation now diuresed. With underlying pulmonary hypertension. Noted negative lower extremity duplex lactic acid noted with improvement down from 3.4-2.3. Acute COPD exacerbation: As above. Elevated D-dimer: Mild purplish discoloration of kneecaps. LE warm and perfused. No evidence of DIC. No DVT. Continue Lovenox. Soft blood pressure: Resolved. TTE noted unfortunately uninterpretable. Troponin withmild elevation of suspected demand ischemia. A-fib RVR more tachycardic on last vitals check but overall controlled. Potassium noted 4.9. Continue Cardizem. Monitor on telemetry. Anticipate that atrial fibrillation should improve with improvement in respiratory failure, COPD exacerbation. Continue treatment of underlying problem as above. Patient is on anticoagulating agent and takes diltiazem Therapeutic Lovenox. Diastolic CHF exacerbation: Now appears more euvolemic. Hold further Lasix. Reassess volume status, renal function. Noted some elevation of BUN to 27. Creatinine 0.8. With reassessment we will consider whether to hold Lasix further or resume oral diuretic. Reassess renal function. Monitor blood pressures. TTE obtained, unfortunately not a useful study. Pulmonary hypertension Follows up with cardiology outpatient Peripheral arterial disease status post bypass right leg in September at [place]. Monitor extremities. Continue follow-up. Hypokalemia: Continue potassium supplementation Discussed with case management. Attestations Medical Necessity Statement*: Continue admission for assessment management of respiratory failure. Diagnoses Respiratory failure J96.01; J96.02 Chronicity: acute Respiratory failure complication: hypoxia and hypercapnia Atrial fibrillation with RVR I48.91 Acute exacerbation of chronic obstructive pulmonary disease J44.1 Cough R05.9 Oral candidiasis B37.0 Peripheral arterial disease I73.9 Benign essential HTN I10 Solitary pulmonary nodule on lung CT R91.1 DA (obstructive sleep apnea) G47.33 Acute on chronic respiratory failure with hypoxia and hypercapnia J96.21; J96.22 CHF exacerbation I50.9 Pulmonary hypertension I27.20
[2023-02-24 22:29] LABS: Vancomycin Trough 13.3 ug/mL (10-15)
[2023-02-25] VITALS (12 sets, daily range): BP systolic 107–145; BP diastolic 72–87; PULSE 57–104; RESP 15–20; TEMP 36.3–36.8; O2SAT 89–98
[2023-02-25] MEDS: dilTIAZem 60 mg Tablet PO ×4 (01:43→20:33)
[2023-02-25] MEDS: meropenem 1,000 MG in sodium chloride 0.9% (plus) 50 ML 100 MG IV ×3 (01:43→17:37)
[2023-02-25] MEDS: methylPREDNISolone sod succ 60 MG in water for injection-sterile 0.96 ML 11.52 MG IVP ×4 (01:50→20:08)
[2023-02-25 06:50] LABS: Basophils % 0.1 %; Hematocrit 39.8 % (42.0-52.0); Hemoglobin 12.7 g/dL (11.7-16.6); Lymphocytes # 0.3 10^3/uL (0.8-4.8); Lymphocytes % 2.5 %; Mean Corpuscular HGB Conc 31.9 g/dL (30.0-36.0); Mean Corpuscular Hemoglobin 29.2 pg (28.0-34.0); Mean Corpuscular Volume 91.5 fl (80-94); Mean Platelet Volume 10.6 fL (7.4-10.4); Monocytes # 0.3 10^3/uL (0.2-0.9); Monocytes % 2.4 %; Neutrophils # 10.38 10^3/uL (1.8-7.7); Neutrophils % 94.2 %; Nucleated Red Blood Cells % 0 %; Platelet Count 205 10^3/cmm (130-400); Red Blood Count 4.35 10^6/uL (4.1-5.3); Red Cell Distribution Width 14.1 % (12.1-15.1)
[2023-02-25 07:03] LABS: Alanine Aminotransferase 83 U/L (0-41); Albumin Level 3.4 g/dL (3.5-5.2); Alkaline Phosphatase 53 U/L (40-130); Anion Gap 9.2 (5-19); Aspartate Amino Transferase 29 U/L (0-40); Blood Urea Nitrogen 26 mg/dL (8-23); Carbon Dioxide 39 mmol/L (22-29); Chloride 96 mmol/L (98-107); Globulin 2.3 g/dL (1.3-4.6); Glucose 122 mg/dL (65-115); Osmolality Calculated 296 mOsm/kg (285-295); Potassium 4.2 mmol/L (3.5-5.1); Sodium 140 mmol/L (136-145); Total Bilirubin 0.8 mg/dL (0.15-1.2); Total Protein 5.7 g/dL (6.6-8.7)
[2023-02-25] MEDS: guaiFENesin 600 mg Tablet 1200 MG PO ×2 (08:22→17:36)
[2023-02-25] MEDS: potassium chloride ER 10 mEq Tablet PO (08:22)
[2023-02-25] MEDS: levETIRAcetam 500 mg Tablet PO ×2 (08:25→20:33)
[2023-02-25] MEDS: sennosides-docusate Tablet 1 TAB PO (08:25)
[2023-02-25] MEDS: levalbuterol 0.63 mg/3 mL Neb INHALATION ×3 (08:31→19:45)
[2023-02-25] MEDS: sodium chloride 3.5% neb 4 mL Neb INHALATION ×2 (08:31→19:45)
[2023-02-25] MEDS: enoxaparin 100 mg/mL Syringe SUBCUT ×2 (08:54→20:33)
[2023-02-25] MEDS: vancomycin 1,500 MG/300 ML PIGGYBACK 200 MG IV (11:22)
[2023-02-25] MEDS: benzonatate 100 mg Capsule 200 MG PO (13:17)
[2023-02-25] MEDS: ipratropium 0.5 mg/2.5 mL Neb INHALATION ×2 (14:26→19:45)
--- NOTE | 2023-02-25 21:14 | P.PN_ITS ---
Subjective Subjective: He is doing slightly better today. Still having some wheezing, cough, but with some gradual though slow improvement. Vitals/I&O/Wt Last Vital Signs Temp 97.4 F L 02/25/23 19:00 Pulse 94 02/25/23 19:45 Resp 20 H 02/25/23 19:45 BP 145/76 02/25/23 19:00 Pulse Ox 90 02/25/23 19:45 O2 Del Method Nasal Cannula 02/25/23 19:45 O2 Flow Rate 5 02/25/23 20:37 FiO2 45 02/23/23 22:26 02/25/23 02/25/23 02/25/23 06:59 14:59 22:59 Intake Total 350.96 / 2053.84 591.92 / 591.92 50.96 / 642.88 Output Total 500 / 1800 650 / 650 250 / 900 Balance -149.04 / 253.84 -58.08 / -58.08 -199.04 / -257.12 Physical Exam Const: COMMON NORMALS: patient oriented x3 and alert GENERAL APPEARANCE: cooperative ORIENTATION/CONSCIOUSNESS: Yes awake HENMT: COMMON NORMALS: oropharynx normal Neck/C-Spine: COMMON NORMALS: no JVD Resp: COMMON NORMALS: normal respiratory effort and clear to auscultation bilaterally AUSCULTATION: clear to auscultation bilaterally and diminished lung sounds Cardio: COMMON NORMALS: no JVD, regular rhythm, S1 normal heart sound present, S2 normal heart sound present and No murmurs present (Cardio) RHYTHM: regular rhythm HEART SOUNDS: S1 normal heart sound present and S2 normal heart sound present GI: COMMON NORMALS: Normal to inspection, nondistended, normoactive bowel sounds present, Soft to palpation and non-tender PALPATION: Yes Soft to palpation Extremity: COMMON NORMALS: no joint enlargement and no pedal edema OTHER: Lower extremities are warm and perfused. Some chronic purplish discoloration/fluid on kneecaps, he states has been there mostly ever since he had his bypass surgery. Sometimes it gets worse, although he did not pay attention to see if it is related to cold temperature. Neuro: COMMON NORMALS: patient oriented x3 and moves all extremities SENSORIUM/ORIENTATION: Yes alert Skin: COMMON NORMALS: no rashes or lesions noted GENERAL SKIN EXAM: no rashes or lesions noted Urinary Catheter Management: Hurd: Cath Placed During This Visit: yes Reason for Continuing Indwelling Catheter: Accurate Measurement of Urinary Out put in Critically Ill Patients Urinary Catheter Date of Insertion: 02/21/23 Urinary Catheter Time of Insertion: 09:13 Data 02/25/23 06:00 02/25/23 06:00 Micro: Microbiology 02/22/23 10:50 Gram Stain - Final Sputum - Expectorated Sputum Sputum Culture - Final Strep agalactiae - (group b) A&P Assessment and plan (1) Respiratory failure: Qualifiers: Chronicity: acute Respiratory failure complication: hypoxia and hypercapnia Qualified Code(s): J96.01 - Acute respiratory failure with hypoxia; J96.02 - Acute respiratory failure with hypercapnia (2) Atrial fibrillation with RVR: (3) Acute exacerbation of chronic obstructive pulmonary disease: (4) Cough: (5) Oral candidiasis: (6) Peripheral arterial disease: (7) Benign essential HTN: (8) Solitary pulmonary nodule on lung CT: (9) DA (obstructive sleep apnea): (10) Acute on chronic respiratory failure with hypoxia and hypercapnia: (11) CHF exacerbation: (12) Pulmonary hypertension: Plan Acute hypoxic hypercapnic respiratory failure Still wheezing, although with some slow gradual improvement. Discussed with him, as improvement has been slow, we discussed obtaining a plain CT scan for additional assessment. Requested. Does appear to have improvement in leukocytosis today down to 11,000. Afebrile. Improvement in tachypnea. Overall anticipate should continue to gradually improve. Continue treatment currently with antibiotics, IV steroids, breathing treatments, inhaled steroid, pulmonary toilet. Discussed with case management. Continued respiratory failure, continues to require 4 L nasal cannula oxygen. Still significant bronchospastic response, severe COPD exacerbation, will add budesonide nebs. Continue hypertonic saline nebs. Continue pulmonary toilet, Mucinex, flutter valve, humidifier added to oxygen. Continue systemic steroids. Discussed with him broaden antibiotic coverage with meropenem, vancomycin. Reviewed sputum culture, mixed ermelinda so far. WBC noted 11, mostly neutrophilic Noted negative MRSA PCR. Continue CPAP nightly for DA. Continue treatment of COPD exacerbation, CHF exacerbation now diuresed. With underlying pulmonary hypertension. Noted negative lower extremity duplex lactic acid noted with improvement Acute COPD exacerbation: As above. Elevated D-dimer. Mild purplish discoloration of kneecaps. LE warm and perfused. Reports chronic. No evidence of DIC. No DVT. Continue Lovenox. Soft blood pressure: Resolved. TTE noted unfortunately uninterpretable. Troponin withmild elevation of suspected demand ischemia. A-fib RVR more tachycardic on last vitals check but overall controlled. Potassium noted 4.2. Continue Cardizem. Monitor on telemetry. Anticipate that atrial fibrillation should improve with improvement in respiratory failure, COPD exacerbation. Continue treatment of underlying problem as above. Patient is on anticoagulating agent and takes diltiazem Therapeutic Lovenox. Diastolic CHF exacerbation: Now appears more euvolemic. Hold further Lasix. Reassess volume status, renal function. Noted some elevation of BUN to 26. Creatinine 0.4. Monitor for any worsening renal function. Recheck chemistry. With reassessment we will consider whether to hold Lasix further or resume oral diuretic. Reassess renal function. Monitor blood pressures. TTE obtained, unfortunately not a useful study. Pulmonary hypertension Follows up with cardiology outpatient Peripheral arterial disease status post bypass right leg in September at [place]. Monitor extremities. Continue follow-up. Hypokalemia: Continue potassium supplementation Discussed with discharge planning. Attestations Medical Necessity Statement*: Continue admission for assessment management of respiratory failure. Diagnoses Respiratory failure J96.01; J96.02 Chronicity: acute Respiratory failure complication: hypoxia and hypercapnia Atrial fibrillation with RVR I48.91 Acute exacerbation of chronic obstructive pulmonary disease J44.1 Cough R05.9 Oral candidiasis B37.0 Peripheral arterial disease I73.9 Benign essential HTN I10 Solitary pulmonary nodule on lung CT R91.1 DA (obstructive sleep apnea) G47.33 Acute on chronic respiratory failure with hypoxia and hypercapnia J96.21; J96.22 CHF exacerbation I50.9 Pulmonary hypertension I27.20
[2023-02-26] VITALS (15 sets, daily range): BP systolic 113–127; BP diastolic 73–85; PULSE 34–122; RESP 14–22; TEMP 36.4–36.8; O2SAT 88–100
[2023-02-26] MEDS: vancomycin 1,500 MG/300 ML PIGGYBACK 200 MG IV ×2 (00:03→11:30)
[2023-02-26] MEDS: meropenem 1,000 MG in sodium chloride 0.9% (plus) 50 ML 100 MG IV ×3 (02:02→17:58)
[2023-02-26] MEDS: methylPREDNISolone sod succ 60 MG in water for injection-sterile 0.96 ML 11.52 MG IVP ×3 (02:56→14:41)
[2023-02-26 06:21] LABS: Basophils % 0.2 %; Hematocrit 41.7 % (42.0-52.0); Hemoglobin 12.7 g/dL (11.7-16.6); Lymphocytes # 0.3 10^3/uL (0.8-4.8); Mean Corpuscular HGB Conc 30.5 g/dL (30.0-36.0); Mean Corpuscular Hemoglobin 29.3 pg (28.0-34.0); Mean Corpuscular Volume 96.3 fl (80-94); Mean Platelet Volume 10.8 fL (7.4-10.4); Monocytes # 0.4 10^3/uL (0.2-0.9); Monocytes % 3.3 %; Neutrophils # 9.66 10^3/uL (1.8-7.7); Neutrophils % 92.2 %; Nucleated Red Blood Cells % 0 %; Platelet Count 200 10^3/cmm (130-400); Red Blood Count 4.33 10^6/uL (4.1-5.3); Red Cell Distribution Width 14.1 % (12.1-15.1); White Blood Count 10.5 10^3/uL (4.0-10.0)
[2023-02-26 06:43] LABS: Alanine Aminotransferase 92 U/L (0-41); Alkaline Phosphatase 43 U/L (40-130); Blood Urea Nitrogen 26 mg/dL (8-23); Calcium 8.4 mg/dL (8.5-10.5); Carbon Dioxide 34 mmol/L (22-29); Chloride 97 mmol/L (98-107); Globulin 2.3 g/dL (1.3-4.6); Glucose 115 mg/dL (65-115); Osmolality Calculated 288 mOsm/kg (285-295); Sodium 136 mmol/L (136-145); Total Bilirubin 0.8 mg/dL (0.15-1.2); Total Protein 5.3 g/dL (6.6-8.7)
[2023-02-26 07:05] LABS: Anion Gap 9.6 (5-19); Potassium 4.6 mmol/L (3.5-5.1)
[2023-02-26 07:06] LABS: Aspartate Amino Transferase 30 U/L (0-40)
[2023-02-26] MEDS: ipratropium 0.5 mg/2.5 mL Neb INHALATION ×3 (08:32→19:31)
[2023-02-26] MEDS: levalbuterol 0.63 mg/3 mL Neb INHALATION ×3 (08:32→19:31)
[2023-02-26] MEDS: budesonide 0.5 mg/2 mL Neb 0.25 MG INHALATION ×2 (08:32→19:31)
[2023-02-26] MEDS: levETIRAcetam 500 mg Tablet PO ×2 (09:00→20:51)
[2023-02-26] MEDS: potassium chloride ER 10 mEq Tablet PO (09:00)
[2023-02-26] MEDS: guaiFENesin 600 mg Tablet 1200 MG PO ×2 (09:00→17:57)
[2023-02-26] MEDS: enoxaparin 100 mg/mL Syringe SUBCUT ×2 (09:01→20:52)
[2023-02-26] MEDS: dilTIAZem 60 mg Tablet PO ×2 (10:49→17:58)
--- NOTE | 2023-02-26 13:31 | PC.SOCIAL ---
IMM Update pg 2 of IMM updated and reviewed w/ patient. Copy provided and Copy in chart dated and initialed.
--- NOTE | 2023-02-26 16:36 | P.PN_ITS ---
Subjective Subjective: He reports he is finally improving today. Feels less congested. [place] good getting up to the chair. Vitals/I&O/Wt Last Vital Signs Temp 98.2 F 02/26/23 15:00 Pulse 66 02/26/23 15:00 Resp 17 02/26/23 15:00 BP 120/73 02/26/23 15:00 Pulse Ox 95 02/26/23 15:00 O2 Del Method Nasal Cannula 02/26/23 15:00 O2 Flow Rate 4 02/26/23 14:10 FiO2 45 02/26/23 01:16 02/26/23 02/26/23 02/26/23 06:59 14:59 22:59 Intake Total 350.96 / 993.84 830.96 / 830.96 0.96 / 831.92 Output Total 350 / 1450 200 / 200 Balance 0.96 / -456.16 630.96 / 630.96 0.96 / 631.92 Physical Exam Narrative: Accompanied by family. Const: COMMON NORMALS: patient oriented x3 and alert GENERAL APPEARANCE: cooperative ORIENTATION/CONSCIOUSNESS: Yes awake HENMT: COMMON NORMALS: oropharynx normal Neck/C-Spine: COMMON NORMALS: no JVD Resp: COMMON NORMALS: normal respiratory effort and clear to auscultation bilaterally AUSCULTATION: clear to auscultation bilaterally and diminished lung sounds Cardio: COMMON NORMALS: no JVD, regular rhythm, S1 normal heart sound present, S2 normal heart sound present and No murmurs present (Cardio) RHYTHM: regular rhythm HEART SOUNDS: S1 normal heart sound present and S2 normal heart sound present GI: COMMON NORMALS: Normal to inspection, nondistended, normoactive bowel sounds present, Soft to palpation and non-tender PALPATION: Yes Soft to palpation Extremity: COMMON NORMALS: no joint enlargement and no pedal edema OTHER: Lower extremities are warm and perfused. Some chronic purplish discoloration/fluid on kneecaps, he states has been there mostly ever since he had his bypass surgery. Sometimes it gets worse, although he did not pay attention to see if it is related to cold temperature. Neuro: COMMON NORMALS: patient oriented x3 and moves all extremities SENSORIUM/ORIENTATION: Yes alert Skin: COMMON NORMALS: no rashes or lesions noted GENERAL SKIN EXAM: no juice hes or lesions noted Urinary Catheter Management: Hurd: Cath Placed During This Visit: yes Reason for Continuing Indwelling Catheter: Accurate Measurement of Urinary Output in Critically Ill Patients Urinary Catheter Date of Insertion: 02/21/23 Urinary Catheter Time of Insertion: 09:13 Data 02/26/23 05:58 02/26/23 05:58 Micro: Microbiology 02/21/23 05:19 Blood Culture - Final Blood NO GROWTH AFTER 5 DAYS 02/21/23 05:07 Blood Culture - Final Blood NO GROWTH AFTER 5 DAYS A&P Assessment and plan (1) Respiratory failure: Qualifiers: Chronicity: acute Respiratory failure complication: hypoxia and hypercapnia Qualified Code(s): J96.01 - Acute respiratory failure with hypoxia; J96.02 - Acute respiratory failure with hypercapnia (2) Atrial fibrillation with RVR: (3) Acute exacerbation of chronic obstructive pulmonary disease: (4) Cough: (5) Oral candidiasis: (6) Peripheral arterial disease: (7) Benign essential HTN: (8) Solitary pulmonary nodule on lung CT: (9) DA (obstructive sleep apnea): (10) Acute on chronic respiratory failure with hypoxia and hypercapnia: (11) CHF exacerbation: (12) Pulmonary hypertension: Plan Acute hypoxic hypercapnic respiratory failure He feels he now is finally starting to improve. Feels less congested. Earlier this morning condition worse, requiring 6 L, but now seems to be starting to improve. Wheezing on exam is improving. We will try to de-escalate Solu-Medrol down to 40 mg every 6 hours. Reassess condition. In case of worsening consider pulmonary consultation tomorrow, but anticipate hopefully should continue to improve. CT scan shows no interval lobar consolidation, some chronic air trapping and po stinflammatory appearing scarring. Some nodular areas do appear slightly increased although could also represent some postinflammatory granulomatous or mucoid impacted related changes. As he now showing improvement, MRSA PCR was negative, will stop vancomycin. Check procalcitonin. When returning home, discussed with case management he already has oxygen. Now improving respiratory failure, This morning up to 6 L nasal cannula oxygen requirement. Bronchospastic response, severe COPD exacerbation. budesonide nebs. Continue hypertonic saline nebs. Continue pulmonary toilet, Mucinex, flutter valve, humidifier added to oxygen. Continue systemic steroids. meropenem Reviewed sputum culture, mixed ermelinda so far. WBC noted 11, mostly neutrophilic Noted negative MRSA PCR. Continue CPAP nightly for DA. Continue treatment of COPD exacerbation, CHF exacerbation now diuresed. With underlying pulmonary hypertension. Noted negative lower extremity duplex lactic acid noted with improvement Acute COPD exacerbation, Severe: As above. Elevated D-dimer. Mild purplish discoloration of kneecaps. LE warm and perfused. Reports chronic. No evidence of DIC. No DVT. Continue Lovenox. Follow-up with vascular surgery. Soft blood pressure: Resolved. TTE noted unfortunately uninterpretable. Troponin withmild elevation of suspected demand ischemia. A-fib RVR more tachycardic on last vitals check but overall controlled. Potassium noted 4.2. Continue Cardizem. Monitor on telemetry. Anticipate that atrial fibrillation should improve with improvement in respiratory failure, COPD exacerbation. Continue treatment of underlying problem as above. Patient is on anticoagulating agent and takes diltiazem Therapeutic Lovenox. Diastolic CHF exacerbation: Now appears more euvolemic. Hold further Lasix. Reassess volume status, renal function. Noted some elevation of BUN to 26. Creatinine 0.4. Monitor for any worsening renal function. Recheck chemistry. With reassessment we will consider whether to hold Lasix further or resume oral diuretic. Reassess renal function. Monitor blood pressures. TTE obtained, unfortunately not a useful study. Pulmonary hypertension Follows up with cardiology outpatient Peripheral arterial disease status post bypass right leg in September at [place]. Monitor extremities. Continue follow-up. Hypokalemia: Continue potassium supplementation Discussed with discharge planning. Attestations Medical Necessity Statement*: Continue admission for assessment management of slow to improve respiratory failure, severe exacerbation of COPD. Diagnoses Respiratory failure J96.01; J96.02 Chronicity: acute Respiratory failure complication: hypoxia and hypercapnia Atrial fibrillation with RVR I48.91 Acute exacerbation of chronic obstructive pulmonary disease J44.1 Cough R05.9 Oral candidiasis B37.0 Peripheral arterial disease I73.9 Benign essential HTN I10 Solitary pulmonary nodule on lung CT R91.1 DA (obstructive sleep apnea) G47.33 Acute on chronic respiratory failure with hypoxia and hypercapnia J96.21; J96.22 CHF exacerbation I50.9 Pulmonary hypertension I27.20
--- NOTE | 2023-02-26 21:16 | CTR_ITS ---
PROCEDURE INFORMATION: Exam: CT Chest Without Contrast; Diagnostic Exam date and time: 02/26/2023 8:18 AM Age: 72 years old Clinical indication: Shortness of breath; Prior surgery; Surgery date: 6+ months; Surgery type: Aaa; Additional info: Resp fail, slow improvement.No history of trauma or recent surgery is provided. TECHNIQUE: Imaging protocol: Diagnostic computed tomography of the chest without contrast. 281image(s) are provided. Radiation optimization: All CT scans at this facility use at least one of these dose optimization techniques: automated exposure control; mA and/or kV adjustment per patient size (includes targeted exams where dose is matched to clinical indication); or iterative reconstruction. Other technique: Axial images are available with sagittal and coronal reconstruction views. Automated dose exposure control is utilized. The DLP is 561.91. REPORTING DATA: Count of CT and Cardiac NM exams in prior 12 months: This patient has received 4 known CTs and 0 known cardiac nuclear medicine studies in the 12 months prior to the current study. COMPARISON: 1. CT chest wo con [id number] 08/17/2022 2:19 PM 2. CR (CHEST, ) 02/21/2023 4:14 AM 3. CR (CHEST, ) 01/25/2023 8:04 PM RADIATION DOSE METRICS: Total DLP (mGy-cm): 561.91 FINDINGS: Trachea: The central airways are patent. Lungs: There is some subsegmental atelectasis versus post inflammatory reticulonodular scarring demonstrated. There is some chronic air trapping appearance similar overall. No lobar consolidation is appreciated. There is a right upper lobe calcified granuloma similar overall. There is some ground-glass nodularity present of the parenchyma although could also represent some associated mucoid impaction. Some areas appears somewhat increased in the interval for example including at the posterior basal segment right lower lobe measuring approximately 5 mm series 5, image 49 as well as left medial apex at approximally 3 x 4 mm image 13. There is some lung fissure thickening. There is some increased bandlike scarring type appearance for example at the inferior segment of the lingula. There is some patchy postinflammatory appearing extrapleural proliferation of the left lung base. The previously described ground-glass nodular area about the left hilar lateral margin is similar overall image 23 measuring approximately 5 x 8 mm. For patients at low risk (minimal or absent history of smoking and of other known risk factors), no routine follow-up is indicated. For patients at high risk (history of smoking or of other known risk factors), consider optional CT Chest at 12 months. (Reference: [place]) References: [place] Vergara et al. Guidelines for Management of Incidental Pulmonary Nodules Detected on CT Images: From the Fleischner Society 2017. Radiology. 2017;284(1):228-243. Pleural spaces: No interval pneumothorax or pleural effusion is appreciated. Heart: No significant pericardial fluid collection is appreciated. Coronary arteries: There are coronary arterial calcifications present. Lymph nodes: There are subcentimeter predominant mediastinal and hilar lymph nodes overall present. There are mediastinal and hilar granulomatous hollis calcifications present. Vasculature: There is atherosclerotic and tortuous appearance overall of the thoracic aorta with no interval thoracic level saccular aneurysmal dilatation appreciated. There are post interventional related changes of the abdominal aorta demonstrated. Kidneys and ureters: There appears to be some chronic superior level renal scarring left more so than right although motion obscured. Intraperitoneal space: There is a similar otherwise interval appearance of the included intraperitoneal space, upper abdominal structures. Bones/joints: Osseous alignment is maintained.No interval displaced fracture or dislocation is appreciated. There are chronic multilevel degenerative changes of the spine as well as some multilevel chronic appearing decreased vertebral height with lower and thoracolumbar junctional predominance. Soft tissues: No radiopaque foreign body or subcutaneous emphysema is appreciated. Other findings: There is some motion artifact present. No other significant interval changes are appreciated. CT/CT chest wo con [id number] IMPRESSION: No interval lobar consolidation or cardiac decompensation is appreciated with some chronic air trapping and postinflammatory appearing scarring appearance. Some nodular areas do appears subtly increased although could also represent some postinflammatory granulomatous or mucoid impacted related changes.
[2023-02-27] VITALS (15 sets, daily range): BP systolic 106–117; BP diastolic 73–83; PULSE 50–85; RESP 16–20; TEMP 36.3–36.8; O2SAT 93–100
[2023-02-27] MEDS: levalbuterol 0.63 mg/3 mL Neb INHALATION ×4 (01:13→20:03)
[2023-02-27] MEDS: ipratropium 0.5 mg/2.5 mL Neb INHALATION ×4 (01:13→20:04)
[2023-02-27] MEDS: dilTIAZem 60 mg Tablet PO ×3 (03:04→18:16)
[2023-02-27] MEDS: meropenem 1,000 MG in sodium chloride 0.9% (plus) 50 ML 100 MG IV ×2 (03:04→09:56)
[2023-02-27 05:38] LABS: Basophils % 0.1 %; Hematocrit 41.2 % (42.0-52.0); Hemoglobin 12.8 g/dL (11.7-16.6); Lymphocytes # 0.2 10^3/uL (0.8-4.8); Lymphocytes % 1.6 %; Mean Corpuscular HGB Conc 31.1 g/dL (30.0-36.0); Mean Corpuscular Hemoglobin 29.2 pg (28.0-34.0); Mean Corpuscular Volume 93.8 fl (80-94); Mean Platelet Volume 10.7 fL (7.4-10.4); Monocytes # 0.4 10^3/uL (0.2-0.9); Monocytes % 3.4 %; Neutrophils # 10.65 10^3/uL (1.8-7.7); Neutrophils % 93.6 %; Nucleated Red Blood Cells % 0 %; Platelet Count 190 10^3/cmm (130-400); Red Blood Count 4.39 10^6/uL (4.1-5.3); Red Cell Distribution Width 14.1 % (12.1-15.1); White Blood Count 11.4 10^3/uL (4.0-10.0)
[2023-02-27 06:02] LABS: Alanine Aminotransferase 96 U/L (0-41); Albumin Level 3.1 g/dL (3.5-5.2); Alkaline Phosphatase 40 U/L (40-130); Anion Gap 8.5 (5-19); Aspartate Amino Transferase 23 U/L (0-40); Blood Urea Nitrogen 24 mg/dL (8-23); Calcium 8.4 mg/dL (8.5-10.5); Carbon Dioxide 38 mmol/L (22-29); Chloride 98 mmol/L (98-107); Globulin 1.8 g/dL (1.3-4.6); Glucose 114 mg/dL (65-115); Osmolality Calculated 295 mOsm/kg (285-295); Potassium 4.5 mmol/L (3.5-5.1); Sodium 140 mmol/L (136-145); Total Bilirubin 0.8 mg/dL (0.15-1.2); Total Protein 4.9 g/dL (6.6-8.7)
[2023-02-27 06:04] LABS: Procalcitonin 0.03 ng/mL (0-0.5)
[2023-02-27] MEDS: levETIRAcetam 500 mg Tablet PO ×2 (08:01→21:14)
[2023-02-27] MEDS: potassium chloride ER 10 mEq Tablet PO (08:01)
[2023-02-27] MEDS: enoxaparin 100 mg/mL Syringe SUBCUT ×2 (08:02→21:14)
[2023-02-27] MEDS: guaiFENesin 600 mg Tablet 1200 MG PO ×2 (08:02→18:16)
[2023-02-27] MEDS: budesonide 0.5 mg/2 mL Neb 0.25 MG INHALATION (09:12)
--- NOTE | 2023-02-27 15:06 | P.PN_ITS ---
Subjective Subjective: Continues to have right-sided wheezing. States that he feels a catching his breath when he attempts to take a deep breath. Oxygen requirement is stable at 4 L/min today. Medications: Reviewed: Yes Vitals/I&O/Wt Last Vital Signs Temp 97.5 F L 02/27/23 11:59 Pulse 72 02/27/23 14:16 Resp 18 02/27/23 14:05 BP 106/73 02/27/23 11:59 Pulse Ox 95 02/27/23 14:05 O2 Del Method Nasal Cannula 02/27/23 14:05 O2 Flow Rate 4 02/27/23 14:05 FiO2 45 02/27/23 01:14 02/27/23 02/27/23 02/27/23 06:59 14:59 22:59 Intake Total 51 / 1653.92 530.5 / 530.5 Output Total 850 / 1950 300 / 300 Balance -799 / -296.08 230.5 / 230.5 Physical Exam Narrative: General: No acute distress, AO x3 HEENT: PERRLA, pupils bilaterally equal and reactive, pallors not present Chest: Normal vesicular breath sounds, no added sounds, equal good air entry bilaterally CVS: S1-S2 regular, no murmurs, no tachycardia, no gallops, no rubs Abdomen: Soft, nontender, no organomegaly, bowel sounds present Neuro: No focal deficits, no facial deformity, AO x3, power 5/5 in all limbs Urinary Catheter Management: Hurd: Cath Placed During This Visit: yes Reason for Continuing Indwelling Catheter: Accurate Measurement of Urinary Ou tput in Critically Ill Patients Urinary Catheter Date of Insertion: 02/21/23 Urinary Catheter Time of Insertion: 09:13 Data 02/27/23 04:57 02/27/23 04:57 A&P Assessment and plan (1) Respiratory failure: Qualifiers: Chronicity: acute Respiratory failure complication: hypoxia and hypercapnia Qualified Code(s): J96.01 - Acute respiratory failure with hypoxia; J96.02 - Acute respiratory failure with hypercapnia (2) Atrial fibrillation with RVR: (3) Acute exacerbation of chronic obstructive pulmonary disease: (4) Cough: (5) Oral candidiasis: (6) Peripheral arterial disease: (7) Benign essential HTN: (8) Solitary pulmonary nodule on lung CT: (9) DA (obstructive sleep apnea): (10) Acute on chronic respiratory failure with hypoxia and hypercapnia: (11) CHF exacerbation: (12) Pulmonary hypertension: Plan Acute hypoxic hypercapnic respiratory failure Suspect secondary to acute on chronic COPD exacerbation Wheezing on exam is improving but still present on the right side. Increase budesonide inhalation 2.5 mg twice daily from 0.25 mg twice daily DuoNebs standing every 6 hours instead of as needed, as needed levalbuterol additionally as needed if needed. Trial of magnesium 1 g IV today to assess for improvement Add azithromycin 500 mg p.o. daily for 3 days Resume Lasix 40 mg IV daily for known pulmonary hypertension. Unable to get an echocardiogram due to poor ultrasonic windows. CT scan shows no interval lobar consolidation; DC meropenem Negative COVID PCR Continue CPAP nightly for DA. Continue treatment of COPD exacerbation, CHF exacerbation now diuresed. With underlying pulmonary hypertension. Noted negative lower extremity duplex lactic acid noted with improvement Elevated D-dimer, but unlikely PE as patient is on Eliquis. Currently full dose anticoagulation with Lovenox ongoing Troponin with mild elevation of suspected demand ischemia. Attestations Medical Necessity Statement*: Optimize inhaled medications, still with wheezing, trial of magnesium and azithromycin, change IV steroids to oral and monitor for any change Coding Level of Care Code Acute Code for Chg Fwd Moderate MDM includes number and complexity of problems actively addressed during encounter, amount and/or complexity of data reviewed/ordered and desc ribed risk of complication, morbidity or mortality of management as documented Diagnoses Respiratory failure J96.01; J96.02 Chronicity: acute Respiratory failure complication: hypoxia and hypercapnia Atrial fibrillation with RVR I48.91 Acute exacerbation of chronic obstructive pulmonary disease J44.1 Cough R05.9 Oral candidiasis B37.0 Peripheral arterial disease I73.9 Benign essential HTN I10 Solitary pulmonary nodule on lung CT R91.1 DA (obstructive sleep apnea) G47.33 Acute on chronic respiratory failure with hypoxia and hypercapnia J96.21; J96.22 CHF exacerbation I50.9 Pulmonary hypertension I27.20
[2023-02-27] MEDS: predniSONE 20 mg Tablet 40 MG PO (18:16)
[2023-02-27] MEDS: budesonide 0.5 mg/2 mL Neb INHALATION (20:03)
[2023-02-28] VITALS (15 sets, daily range): BP systolic 107–126; BP diastolic 64–79; PULSE 61–99; RESP 16–20; TEMP 36.3–37; O2SAT 92–99
[2023-02-28] MEDS: levalbuterol 0.63 mg/3 mL Neb INHALATION ×4 (01:36→19:24)
[2023-02-28] MEDS: ipratropium 0.5 mg/2.5 mL Neb INHALATION ×4 (01:36→19:24)
[2023-02-28 05:29] LABS: Basophils % 0.1 %; Hematocrit 40.3 % (42.0-52.0); Hemoglobin 12.8 g/dL (11.7-16.6); Lymphocytes # 0.3 10^3/uL (0.8-4.8); Lymphocytes % 1.9 %; Mean Corpuscular HGB Conc 31.8 g/dL (30.0-36.0); Mean Corpuscular Hemoglobin 29.4 pg (28.0-34.0); Mean Corpuscular Volume 92.6 fl (80-94); Monocytes # 0.6 10^3/uL (0.2-0.9); Monocytes % 4.5 %; Nucleated Red Blood Cells % 0 %; Platelet Count 197 10^3/cmm (130-400); Red Blood Count 4.35 10^6/uL (4.1-5.3); White Blood Count 13.8 10^3/uL (4.0-10.0)
[2023-02-28 05:47] LABS: Alanine Aminotransferase 86 U/L (0-41); Albumin Level 3.1 g/dL (3.5-5.2); Alkaline Phosphatase 38 U/L (40-130); Anion Gap 5.9 (5-19); Aspartate Amino Transferase 21 U/L (0-40); Blood Urea Nitrogen 27 mg/dL (8-23); Calcium 8.4 mg/dL (8.5-10.5); Carbon Dioxide 39 mmol/L (22-29); Chloride 100 mmol/L (98-107); Glucose 111 mg/dL (65-115); Osmolality Calculated 296 mOsm/kg (285-295); Potassium 4.9 mmol/L (3.5-5.1); Sodium 140 mmol/L (136-145); Total Bilirubin 0.7 mg/dL (0.15-1.2); Total Protein 5.1 g/dL (6.6-8.7)
[2023-02-28] MEDS: budesonide 0.5 mg/2 mL Neb INHALATION ×2 (08:00→19:24)
[2023-02-28] MEDS: enoxaparin 100 mg/mL Syringe SUBCUT ×2 (08:42→20:21)
[2023-02-28] MEDS: guaiFENesin 600 mg Tablet 1200 MG PO ×2 (08:43→17:54)
[2023-02-28] MEDS: sennosides-docusate Tablet 1 TAB PO (08:43)
[2023-02-28] MEDS: predniSONE 20 mg Tablet 40 MG PO ×2 (08:43→17:54)
[2023-02-28] MEDS: levETIRAcetam 500 mg Tablet PO ×2 (08:43→20:21)
[2023-02-28] MEDS: potassium chloride ER 10 mEq Tablet PO (08:43)
[2023-02-28] MEDS: azithromycin 250 mg Tablet 500 MG PO (08:43)
[2023-02-28] MEDS: FUROsemide 10 mg/mL SDV 4mL 40 MG IVP (08:51)
[2023-02-28] MEDS: dilTIAZem 60 mg Tablet PO ×2 (10:49→18:13)
--- NOTE | 2023-02-28 11:11 | PC.SOCIAL ---
IMM Update pg 2 of IMM updated and reviewed w/ patient. Copy provided and Copy in chart dated, and initialed.
--- NOTE | 2023-02-28 18:10 | P.PN_ITS ---
Subjective Subjective: Continues to feel subjectively short of breath. Resume Lasix this morning. On 4 L/min supplemental O2 Medications: Reviewed: Yes Vitals/I&O/Wt Last Vital Signs Temp 97.5 F L 02/28/23 16:16 Pulse 82 02/28/23 16:16 Resp 18 02/28/23 16:16 BP 121/73 02/28/23 16:16 Pulse Ox 94 02/28/23 16:16 O2 Del Method Nasal Cannula 02/28/23 16:16 O2 Flow Rate 4 02/28/23 13:07 FiO2 45 02/28/23 01:36 02/28/23 02/28/23 02/28/23 06:59 14:59 22:59 Intake Total 940 / 940 480 / 1420 Output Total 500 / 1100 1550 / 1550 600 / 2150 Balance -500 / 203.0 -610 / -610 -120 / -730 Physical Exam Narrative: General: No acute distress, AO x3 HEENT: PERRLA, pupils bilaterally equal and reactive, pallors not present Chest: Normal vesicular breath sounds, no added sounds, equal good air entry bilaterally CVS: S1-S2 regular, no murmurs, no tachycardia, no gallops, no rubs Abdomen: Soft, nontender, no organomegaly, bowel sounds present Neuro: No focal deficits, no facial deformity, AO x3, power 5/5 in all limbs Urinary Catheter Management: Hurd: Cath Placed During This Visit: yes Reason for Continuing Indwelling Catheter: Accurate Measurement of Urinary Output in Critically Ill Patients Urinary Catheter Date of Insertion: 02/21/23 Urinary Catheter Time of Insertion: 09:13 Data 02/28/23 05:00 02/28/23 05:00 A&P Assessment and plan (1) Respiratory failure: Qualifiers: Chronicity: acute Respiratory failure complication: hypoxia and hypercapnia Qualified Code(s): J96.01 - Acute respiratory failure with hypoxia; J96.02 - Acute respiratory failure with hypercapnia (2) Atrial fibrillation with RVR: (3) Acute exacerbation of chronic obstructive pulmonary disease: (4) Cough: (5) Oral candidiasis: (6) Peripheral arterial disease: (7) Benign essential HTN: (8) Solitary pulmonary nodule on lung CT: (9) AD (obstructive sleep apnea): (10) Acute on chronic respiratory failure with hypoxia and hypercapnia: (11) CHF exacerbation: (12) Pulmonary hypertension: Plan Acute hypoxic hypercapnic respiratory failure Suspect secondary to acute on chronic COPD exacerbation Wheezing on exam continues to improved Patient continues to feel subjectively short of breath and spite of optimizing nebulization with DuoNebs and budesonide. Trial of magnesium 1 g IV yesterday did not appear to have made a significant difference Continue azithromycin 500 mg p.o. daily for 3 days Resumed Lasix 40 mg IV daily for known pulmonary hypertension today. Currently with robust diuresis. Will await for improvement Unable to get an echocardiogram due to poor ultrasonic windows, unable to get heart windows due to hyperinflated chest. CT scan shows no interval lobar consolidation Negative COVID PCR Continue CPAP nightly for DA. Continue prednisone 40 mg twice daily Pulmonology consulted today since patient continues to be subjectively dyspneic in spite of optimization of other care. Cardiac stress test done earlier this year in September 2022 showed normal myocardial perfusion with no evidence of ischemia. LV function was grossly normal. Unlikely that cardiac cause contributing currently. EKG does not show any acute ST-T wave changes. Attestations Medical Necessity Statement*: Pulmonology consult today to assess for any further optimization strategies Coding Level of Care Code Acute Code for Chg Fwd Moderate MDM includes number and complexity of problems actively addressed du darrel encounter, amount and/or complexity of data reviewed/ordered and described risk of complication, morbidity or mortality of management as documented Diagnoses Respiratory failure J96.01; J96.02 Chronicity: acute Respiratory failure complication: hypoxia and hypercapnia Atrial fibrillation with RVR I48.91 Acute exacerbation of chronic obstructive pulmonary disease J44.1 Cough R05.9 Oral candidiasis B37.0 Peripheral arterial disease I73.9 Benign essential HTN I10 Solitary pulmonary nodule on lung CT R91.1 DA (obstructive sleep apnea) G47.33 Acute on chronic respiratory failure with hypoxia and hypercapnia J96.21; J96 .22 CHF exacerbation I50.9 Pulmonary hypertension I27.20
--- NOTE | 2023-02-28 20:58 | P.CONIM_ITS ---
Providers/Reason For Consult Consulting Physician/Specialty*: Alex Moreau MD, [facility] Reason for Consult*: COPD exacerbation Requesting Physician: Ce Victor MD Attending Physician: Ce Victor MD Primary Care Provider: Jackie Kulkarni MD History of Present Illness History of Present Illness Kimo Hernandez is a 72 year old male with a past medical history of A-fib on chronic anticoagulation, diastolic CHF, pulmonary hypertension, severe COPD on home oxygen, sleep apnea who presented to the hospital on February 21, 2023 with worsening shortness of breath.? He was found to be saturating in the 70s upon EMS arrival, needed to be placed on BiPAP.? In the ER he was diagnosed with hypoxic hypercapnic acute respiratory failure failure requiring BiPAP ventilation.? He was also started on diuresis with Lasix for pulmonary hypertension. An echocardiogram was attempted to obtain right-sided pressures, however heart windows were not good enough for interpretation due to hyperinflated chest.? Low suspicion for ischemic cardiac disease given recent stress test back in September 2022 which was negative for any signs of reversible ischemia.? LVEF was grossly normal on ventriculogram. Lower extremity Doppler was negative for DVT.? Low suspicion for PE given that patient is on anticoagulation with Eliquis at a baseline.? During the course of admission he received treatment with high-dose IV steroids, now transition to oral steroids.? Nebulizations were optimized with [id number] DuoNeb and budesonide inhalation.? With the above treatment patient returned to his baseline oxygen requirement of 4 L/min but continued to report subjective dyspnea.? Pulmonology consult was sought. I have known Kimo Hernandez as outpatient in pulmonary clinic.he had PFTs October 2021 which showed severe airflow obstruction with FEV1 32% predicted 1 L, lung volumes showing air trapping hyperinflation and DLCO moderately reduced at 43%. He was using Breztri-I have switched to triple nebulization and Xopenex for as needed during December 2022 clinic visit. His previous echocardiogram June 2022 showed LVEF 62% mildly dilated right atrium, RV, estimated PASP 50. His cardiac stress test in September 2022 did not show any evidence of ischemia. CT chest August 2022 showed stable 8 mm left upper lobe pulmonary nodule along left hilum. There is no significant change on 02/26/2023 CT chest. Patient is back to his baseline and currently on 4 L supplemental oxygen. Patient is currently in a chronically ill but best optimized state with regards to his COPD. Review of Systems General: Reports: 10 or more systems reviewed and unremarkable except in HPI and below Medications/Allergies Home Medications Medication Instructions Recorded Confirmed Last Taken Type albuterol sulfate 90 mcg/actuation 1 inh inhalation QID PRN Shortness 10/09/20 02/21/23 02/20/23 History aerosol inhaler (ProAir HFA) Of Breath apixaban 5 mg tablet 5 mg PO BID@0800,199910/09/20 02/21/23 02/20/23 History cholecalciferol (vitamin D3) 25 25 mcg PO DAILY ##0 10/26/20 02/21/23 02/20/23 History mcg (1,000 unit) capsule (Vitamin D3) furosemide 20 mg tablet (Lasix) 20 mg PO DAILY #60 tabs 11/24/22 02/21/23 02/20/23 Rx potassium chloride 10 mEq 10 meq PO DAILY #30 tabs 12/02/22 02/21/23 02/20/23 Rx tablet,extended release budesonide 0.5 mg/2 mL suspension 0.5 mg (2 mL) inhalation BID #120 01/05/23 02/21/23 Unknown Rx for nebulization mL arformoterol 15 mcg/2 mL solution 2 ml inhalation BID #120 mL 01/06/23 02/21/23 Unknown Rx for nebulization tiotropium bromide 1.25 2 puff inhalation DAILY #4 grams 01/12/23 02/21/23 02/20/23 Rx mcg/actuation mist for inhalation (Spiriva Respimat) ferrous sulfate 325 mg PO BID 02/21/23 02/21/23 02/20/23 History guaifenesin 600 mg tablet, 600 mg PO BID PRN Congestion 02/21/23 02/21/23 02/20/23 History extended release 12 hr (Mucinex) levetiracetam 500 mg tablet 500 mg PO BID 02/21/23 02/21/23 02/20/23 History rosuvastatin 40 mg tablet 40 mg PO .EVENING 02/21/23 02/21/23 02/20/23 History dextromethorphan HBr 5 mg/5 mL 10 mg (10 mL) PO Q8H PRN cough 03/01/23 Unknown Rx oral syrup #354 mL diltiazem HCl 180 mg 180 mg PO Q24H 30 days #30 caps 03/01/23 Unknown Rx capsule,extended release 24 hr pantoprazole 40 mg tablet,delayed 40 mg PO DAILY 4 weeks #30 tabs 03/01/23 Unknown Rx release (Protonix) prednisone 10 mg tablets in a dose See Taper PO DAILY #21 ea 03/01/23 Unknown Rx pack prednisone 5 mg tablet 5 mg PO DAILY 30 days #30 tabs 03/01/23 Unknown Rx Allergies Allergy/AdvReac Type Severity Reaction Status Date / Time No Known Allergies Allergy Verified 02/15/23 12:34 Current Medications Generic Name Dose Route Start Last Admin Trade Name Freq PRN Reason Stop Dose Admin Azithromycin 500 mg 02/28/23 09:00 02/28/23 08:43 Azithromycin 250 Mg Tablet PO 500 mg DAILY JANE Administration Protocol Benzonatate 200 mg 02/22/23 10:34 02/25/23 13:17 Benzonatate 100 Mg Capsule PO 200 mg TID PRN Administration COUGH Budesonide 0.5 mg 02/27/23 20:00 02/28/23 19:24 Budesonide 0.5 Mg/2 Ml Neb INHALATION 0.5 mg BID.RESPIRATORY JANE Administration Diltiazem HCl 60 mg 02/26/23 03:31 02/28/23 18:13 Diltiazem 60 Mg Tablet PO 60 mg Q8H JANE Administration Enoxaparin Sodium 100 mg 02/21/23 21:00 02/28/23 20:21 Enoxaparin 100 Mg/Ml Syringe SUBCUT 100 mg Q12H JANE Administration Furosemide 40 mg 02/22/23 09:00 02/28/23 08:51 Furosemide 10 Mg/Ml Sdv 4ml IVP 40 mg Q24H JANE Administration Guaifenesin 1,200 mg 02/22/23 10:34 02/28/23 17:54 Guaifenesin 600 Mg Tablet PO 1,200 mg BID JANE Administration Ipratropium [place] 0.5 mg 02/27/23 20:00 02/28/23 19:24 Ipratropium 0.5 Mg/2.5 Ml Neb INHALATION 0.5 mg Q6H.RESP JANE Administration Levalbuterol HCl 0.63 mg 02/21/23 07:43 02/28/23 19:24 Levalbuterol 0.63 Mg/3 Ml Neb INHALATION 0.63 mg Q6H.RESP PRN Administration sob Levetiracetam 500 mg 02/21/23 08:00 02/28/23 20:21 Levetiracetam 500 Mg Tablet PO 500 mg BID@0800,2000 JANE Administration Potassium Chloride 10 meq 02/21/23 09:00 02/28/23 08:43 Potassium Chloride Er 10 Meq Tablet PO 10 meq DAILY JANE Administration Prednisone 40 mg 02/27/23 18:00 02/28/23 17:54 Prednisone 20 Mg Tablet PO 40 mg BID JANE Administration Senna/Docusate Sodium 1 tab 02/21/23 09:00 02/28/23 08:43 Sennosides-Docusate Tablet PO 1 tab DAILY JANE Administration PFSH Acute PFSH: Medical History A-fib Benign essential HTN COPD (chronic obstructive pulmonary disease) Depression Dyspnea on exertion Hx of seizure disorder Iliac artery aneurysm, bilateral DA (obstructive sleep apnea) Peripheral arterial disease Popliteal artery aneurysm Sleep apnea in adult Spinal stenosis Tinnitus Surgical History History of AAA (abdominal aortic aneurysm) repair 2009 History of colonoscopy with polypectomy 2018 History of left inguinal hernia repair 2016 History of PTCA History of vascular surgery rt and left leg 2019 S/P hernia repair incisional Family History Mother Cancer Diabetes Father CAD (coronary artery disease) Cancer Chronic kidney disease (CKD) Diabetes Brother No problems noted. Sister No problems noted. Grandfather Lung disease Denies family history of Clotting disorder Dementia Suicide Anesthesia complication Bleeding disorder Stroke Social History Smoking and tobacco status: former smoker Alcohol intake: never Substance/Drug Use: never Vitals/I&O/Wt Last Vital Signs Temp 97.5 F L 02/28/23 16:16 Pulse 84 02/28/23 19:26 Resp 20 H 02/28/23 19:26 BP 121/73 02/28/23 16:16 Pulse Ox 94 02/28/23 19:26 O2 Del Method Nasal Cannula 02/28/23 19:26 O2 Flow Rate 4 02/28/23 19:26 FiO2 45 02/28/23 01:36 02/28/23 02/28/23 02/28/23 06:59 14:59 22:59 Intake Total 940 / 940 480 / 1420 Output Total 500 / 1100 1550 / 1550 600 / 2150 Balance -500 / 203.0 -610 / -610 -120 / -730 Physical Exam Narrative: EXAM NARRATIVE: General: alert, NAD HEENT: conj clear, EOMI, PERRL,, NO oral thrush on pharynx Neck: supple, no meningismus Heme: no cervical LAP Pulmonary: Mild expiratory diffuse mild end expiratory wheeze Cardiovascular: rrr, nl s1s2, no mrg Abdomen: soft, nt, nd, no r/g, bs+ Extremities: pulses +, no edema, noted bilateral mottling of bilateral lower extremities. Skin: intact, no rash MSK: no back or neck pain Neurologic: grossly intact Urinary Catheter Management: Hurd: Cath Placed During This Visit: yes Reason for Continuing Indwelling Catheter: Accurate Measurement of Urinary Output in Critically Ill Patients Urinary Catheter Date of Insertion: 02/21/23 Urinary Catheter Time of Insertion: 09:13 Data 02/28/23 05:00 02/28/23 05:00 Other Labs: Radiology Impressions Chest X-Ray 02/21/23 04:11 IMPRESSION: No acute findings. Chest CT 02/26/23 21:16 IMPRESSION: No interval lobar consolidation or cardiac decompensation is appreciated with some chronic air trapping and postinflammatory appearing scarring appearance. Some nodular areas do appears subtly increased although could also represent some postinflammatory granulomatous or mucoid impacted related changes. Laboratory Results WBC 13.8 10^3/uL (4.0-10.0) H 02/28/23 05:00 RBC 4.35 10^6/uL (4.1-5.3) 02/28/23 05:00 Hgb 12.8 g/dL (11.7-16.6) 02/28/23 05:00 Hct 40.3 % (42.0-52.0) L 02/28/23 05:00 MCV 92.6 fl (80-94) 02/28/23 05:00 MCH 29.4 pg (28.0-34.0) 02/28/23 05:00 MCHC 31.8 g/dL (30.0-36.0) 02/28/23 05:00 RDW 14.0 % (12.1-15.1) 02/28/23 05:00 Plt Count 197 10^3/cmm (130-400) 02/28/23 05:00 MPV 11.0 fL (7.4-10.4) H 02/28/23 05:00 Neut % (Auto) 92.0 % 02/28/23 05:00 Lymph % (Auto) 1.9 % 02/28/23 05:00 [place] % (Auto) 4.5 % 02/28/23 05:00 Eos % (Auto) 0.0 % 02/28/23 05:00 Baso % (Auto) 0.1 % 02/28/23 05:00 Neut # (Auto) 12.70 10^3/uL (1.8-7.7) H 02/28/23 05:00 Lymph # (Auto) 0.3 10^3/uL (0.8-4.8) L 02/28/23 05:00 [place] # (Auto) 0.6 10^3/uL (0.2-0.9) 02/28/23 05:00 Eos # (Auto) 0.0 10^3/uL (0.0-0.8) 02/28/23 05:00 Baso # (Auto) 0.0 10^3/uL (0.0-0.1) 02/28/23 05:00 Nucleated RBC % (auto) 0 % 02/28/23 05:00 Nucleated RBCs # 0.0 /100WBC 02/28/23 05:00 PT 16.30 SECONDS (12.1-14.9) H 02/21/23 10:00 INR 1.27 (0.8-1.2) H 02/21/23 10:00 APTT 27.9 SECONDS (23.9-36.7) 02/21/23 10:00 Fibrinogen 378 mg/dL (174-498) 02/21/23 10:00 Fibrin Degrad Products 5 mcg/mL (LESS THAN 5) H 02/21/23 10:00 Fibrin Degrad Products Not Reportable 02/21/23 10:00 D-Dimer 5.31 ug/mIFEU (0-0.59) H 02/21/23 10:00 Specimen Type Arterial 02/22/23 04:00 Sample Site Radial, right 02/22/23 04:00 ABG pH 7.36 (7.35-7.45) 02/22/23 04:00 ABG pCO2 68.8 mmHg (35-45) H* 02/22/23 04:00 ABG pO2 78.0 mmHg (80.0-100.0) L 02/22/23 04:00 ABG HCO3 38.5 mmol/L (22-26) H 02/22/23 04:00 ABG Base Excess 10.2 mmol/L (-2.0-2.0) H 02/22/23 04:00 Geremias Test Pos 02/22/23 04:00 Hematocrit 41.1 % (42-52) L 02/22/23 04:00 Hgb O2 Saturation 87.5 % (95-100) L 02/21/23 04:17 Carboxyhemoglobin 1.8 %THgb (0.4-20.1) 02/21/23 04:17 Methemoglobin 0.4 % (0.4-1.5) 02/21/23 04:17 Total Hemoglobin 14.3 g/dL (14-18) 02/21/23 04:17 O2 Delivery Device Nc 02/22/23 04:00 O2 Liters/Min 5.0 % 02/22/23 04:00 FiO2 48.0 % 02/21/23 04:17 Ice Cream Freezer Assistant ID [email or web address] 02/22/23 04:00 Sodium 140 mmol/L (136-145) 02/28/23 05:00 Potassium 4.9 mmol/L (3.5-5.1) 02/28/23 05:00 Chloride 100 mmol/L (98-107) 02/28/23 05:00 Carbon Dioxide 39 mmol/L (22-29) H 02/28/23 05:00 Anion Gap 5.9 (5-19) 02/28/23 05:00 BUN 27 mg/dL (8-23) H 02/28/23 05:00 Creatinine 0.4 mg/dL (0.7-1.2) L 02/28/23 05:00 GFR Calculation Not Reportable 02/28/23 05:00 Glucose 111 mg/dL (65-115) 02/28/23 05:00 Calculated Osmolality 296 mOsm/kg (285-295) H 02/28/23 05:00 Lactic Acid 3.4 mmol/L (0.5-2.2) H 02/21/23 05:07 Lactic Acid (Sepsis) 2.3 mmol/L (0.5-2.2) H 02/21/23 07:53 Calcium 8.4 mg/dL (8.5-10.5) L 02/28/23 05:00 Phosphorus 3.8 mg/dL (2.5-4.5) 02/22/23 03:46 Magnesium 2.0 mg/dL (1.7-2.3) 02/22/23 03:46 Total Bilirubin 0.7 mg/dL (0.15-1.2) 02/28/23 05:00 AST 21 U/L (0-40) 02/28/23 05:00 ALT 86 U/L (0-41) H 02/28/23 05:00 Alkaline Phosphatase 38 U/L (40-130) L 02/28/23 05:00 Troponin T Baseline 38 ng/L (0-15) H 02/21/23 07:53 Troponin T 120 Minute 35.32 ng/L (0-15) H 02/21/23 10:00 Delta Troponin T -2.68 ABS# (0-10) L 02/21/23 10:00 Troponin T Hi Sens 6Hr 27.28 ng/L (0-15) H 02/21/23 14:18 Troponin T Hi Sens 6Hr Delta -10.72 ng/L (0-12) L 02/21/23 14:18 C-Reactive Protein 6.6 mg/L (0.0-4.9) H 02/22/23 03:46 NT-Pro-B Natriuret Pep 802 pg/mL (0-125) H 02/21/23 05:07 Total Protein 5.1 g/dL (6.6-8.7) L 02/28/23 05:00 Albumin 3.1 g/dL (3.5-5.2) L 02/28/23 05:00 Globulin 2.0 g/dL (1.3-4.6) 02/28/23 05:00 Procalcitonin 0.03 ng/mL (0-0.5) 02/27/23 04:57 TSH 1.25 uIU/mL (0.27-4.20) 02/21/23 07:53 Random Cortisol 23.50 ug/dL (2.47-19.5) H 02/21/23 10:00 Nasal Influ A H1 2009 PCR Not detected (NOT DETECT) 02/21/23 09:00 Vancomycin Trough 13.3 ug/mL (10-15) 02/24/23 21:58 Adenovirus (PCR) Not detected (NOT DETECT) 02/21/23 09:00 C. pneumoniae DNA (PCR) Not detected (NOT DETECT) 02/21/23 09:00 Coronavirus 229E (PCR) Not detected (NOT DETECT) 02/21/23 09:00 Human Metapneumovir PCR Not detected (NOT DETECT) 02/21/23 09:00 Influenza A (H1) PCR Not detected (NOT DETECT) 02/21/23 09:00 Influenza A (H3) PCR Not detected (NOT DETECT) 02/21/23 09:00 Influenza Type A (PCR) Not detected (NOT DETECT) 02/21/23 09:00 Influenza Type B (PCR) Not detected (NOT DETECT) 02/21/23 09:00 M. pneumoniae (PCR) Not detected (NOT DETECT) 02/21/23 09:00 Parainfluenza 1 (PCR) Not detected (NOT DETECT) 02/21/23 09:00 Parainfluenza 2 (PCR) Not detected (NOT DETECT) 02/21/23 09:00 Parainfluenza 3 (PCR) Not detected (NOT DETECT) 02/21/23 09:00 Parainfluenza 4 (PCR) Not detected (NOT DETECT) 02/21/23 09:00 RSV Type A (PCR) Not detected (NOT DETECT) 02/21/23 09:00 RSV Type B (PCR) Not detected (NOT DETECT) 02/21/23 09:00 Entero/Rhino (PCR) Not detected (NOT DETECT) 02/21/23 09:00 SARS-CoV-2 (PCR) Not detected (NOT DETECT) 02/21/23 09:00 A&P Assessment and plan (1) Acute on chronic respiratory failure with hypoxia and hypercapnia: Patient with severe COPD emphysema During his hospitalization he received scheduled nebulizations, IV steroids-and is back to his baseline 4 L supplemental oxygen he had PFTs October 2021 which showed severe airflow obstruction with FEV1 32% predicted 1 L, lung volumes showing air trapping hyperinflation and DLCO moderately reduced at 43%. He was using Breztri previously-I have switched to triple nebulization and Xope nex for as needed during December 2022 clinic visit. I recommended him to continue triple nebulization at home I have recommended to add p.o. prednisone 5 mg to his daily regimen once completes treatment for the acute exacerbation. Patient is currently in a chronically ill but best optimized state with regards to his COPD. Patient baseline PCO2 is > 60 which is a relative contraindication for endo bronchial valve placement; we will repeat PFTs (2) Acute exacerbation of chronic obstructive pulmonary disease: Currently appears to be back to baseline He received treatments with scheduled nebulizations and IV antibiotics (3) Pulmonary hypertension: Most likely group 3 from severe COPD His previous echocardiogram June 2022 showed LVEF 62% mildly dilated right atrium, RV, estimated PASP 50. His cardiac stress test in September 2022 did not show any evidence of ischemia. continue Lasix 20 Mg daily to reduce RV load Consult Attestations Medical Necessity Statement: Patient can be discharged home from pulmonary standpoint Coding Level of Care Code Acute Code for Chg Fwd Diagnoses Acute on chronic respiratory failure with hypoxia and hypercapnia J96.21; J96.22 Acute exacerbation of chronic obstructive pulmonary disease J44.1 Pulmonary hypertension I27.20 Time Spent (min) 32
[2023-03-01] VITALS (8 sets, daily range): BP systolic 113–123; BP diastolic 77–84; PULSE 63–100; RESP 16–18; TEMP 36.4–36.9; O2SAT 91–98
[2023-03-01] MEDS: ipratropium 0.5 mg/2.5 mL Neb INHALATION ×2 (07:53→13:18)
[2023-03-01] MEDS: budesonide 0.5 mg/2 mL Neb INHALATION (07:53)
[2023-03-01] MEDS: predniSONE 20 mg Tablet 40 MG PO (09:43)
[2023-03-01] MEDS: azithromycin 250 mg Tablet 500 MG PO (09:43)
[2023-03-01] MEDS: guaiFENesin 600 mg Tablet 1200 MG PO (09:43)
[2023-03-01] MEDS: enoxaparin 100 mg/mL Syringe SUBCUT (09:43)
[2023-03-01] MEDS: FUROsemide 10 mg/mL SDV 4mL 40 MG IVP (09:44)
[2023-03-01] MEDS: potassium chloride ER 10 mEq Tablet PO (09:44)
[2023-03-01] MEDS: levETIRAcetam 500 mg Tablet PO (09:54)
--- NOTE | 2023-03-01 10:03 | P.DS_ITS ---
Discharge Providers Date of Admission: 02/21/23 06:35 Date of Discharge: March 01, 2023 Attending Provider at Admission: Elliot Lorenzo MD Attending Provider at Discharge: Ce Victor MD Primary Care Provider: Jackie Kulkarin MD Diagnoses at Discharge Discharge Diagnosis (1) Respiratory failure: Status: Acute Qualifiers: Chronicity: acute Respiratory failure complication: hypoxia and hypercapnia Qualified Code(s): J96.01 - Acute respiratory failure with hypoxia; J96.02 - Acute respiratory failure with hypercapnia (2) Atrial fibrillation with RVR: Status: Acute (3) Acute exacerbation of chronic obstructive pulmonary disease: Status: Acute (4) Cough: Status: Acute (5) Oral candidiasis: Status: Acute (6) Peripheral arterial disease: Status: Acute (7) Benign essential HTN: Status: Acute (8) Solitary pulmonary nodule on lung CT: Status: Acute (9) DA (obstructive sleep apnea): Status: Acute (10) Acute on chronic respiratory failure with hypoxia and hypercapnia: Status: Acute (11) CHF exacerbation: Status: Acute (12) Pulmonary hypertension: Status: Acute Reason for Visit Reason for Visit: SOB Hospital Course Hospital Course Mr. Hernandez is a 72-year-old male with a past medical history of A-fib on chronic anticoagulation, diastolic CHF, pulmonary hypertension, severe COPD on home oxygen, sleep apnea who presented to the hospital on February 21, 2023 with worsening shortness of breath. He was found to be saturating in the 70s upon EMS arrival, needed to be placed on BiPAP. In the ER he was diagnosed with hypoxic hypercapnic acute respiratory failure failure requiring BiPAP ventilation. He was also started on diuresis with Lasix for pulmonary hypertension. During the course of admission he received treatment with high- dose IV steroids, now transition to oral steroids. Nebulizations were optimized with [id number] DuoNeb and budesonide inhalation. He also received diuresis with Lasix for pulmonary hypertension. An echocardiogram was attempted to obtain right-sided pressures, however heart windows were not good enough for interpretation due to hyperinflated chest. Low suspicion for ischemic cardiac disease given recent stress test back in September 2022 which was negative for any signs of reversible ischemia. LVEF was grossly normal on ventriculogram. Lower extremity Doppler was negative for DVT. Low suspicion for PE given that patient is on anticoagulation with Eliquis at a baseline. With the above treatment patient returned to his baseline oxygen requirement of 4 L/min but continued to report subjective dyspnea. Pulmonology consult was sought and patient was seen by Dr. Moreau on February 28, 2023. Recommendation to add p.o. prednisone 5 mg to his daily regimen once completes treatment for the acute exacerbation. There may be consideration of bronchial valve down the line, however further diagnostics in this regard deferred to outpatient follow up. Patient is currently in a chronically ill but best optimized state with regards to his COPD. Physical Exam Narrative: General: No acute distress, AO x3 HEENT: PERRLA, pupils bilaterally equal and reactive, pallors not present Chest: Normal vesicular breath sounds, no added sounds, equal good air entry bilaterally CVS: S1-S2 regular, no murmurs, no tachycardia, no gallops, no rubs Abdomen: Soft, nontender, no organomegaly, bowel sounds present Neuro: No focal deficits, no facial deformity, AO x3, power 5/5 in all limbs Extremities: no edema, clubbing or cyanosis Urinary Catheter Management: Hurd: Cath Placed During This Visit: yes Reason for Continuing Indwelling Catheter: Accurate Measurement of Urinary Output in Critically Ill Patients Urinary Catheter Date of Insertion: 02/21/23 Urinary Catheter Time of Insertion: 09:13 Discharge Data Studies Completed and Pending Completed Studies During Hospitalization Category Date Time Status CT chest wo con [id number] Routine Cat Scan 02/26/23 21:16 Completed XR chest 1V portable [id number] Stat Exams 02/21/23 04:11 [place] [id number] Routine Ultrasound 02/21/23 08:12 Completed CV. echo complete* [id number] Routine Ultrasound 02/21/23 07:43 Completed Pending at discharge Category Date Time Status Fibrinogen Degradation Product Routine Lab 02/21/23 10:00 Received Radiology Impressions Chest X-Ray 02/21/23 04:11 IMPRESSION: No acute findings. Chest CT 02/26/23 21:16 IMPRESSION: No interval lobar consolidation or cardiac decompensation is appreciated with some chronic air trapping and postinflammatory appearing scarring appearance. Some nodular areas do appears subtly increased although could also represent some postinflammatory granulomatous or mucoid impacted related changes. Laboratory Results WBC 13.8 10^3/uL (4.0-10.0) H 02/28/23 05:00 RBC 4.35 10^6/uL (4.1-5.3) 02/28/23 05:00 Hgb 12.8 g/dL (11.7-16.6) 02/28/23 05:00 Hct 40.3 % (42.0-52.0) L 02/28/23 05:00 MCV 92.6 fl (80-94) 02/28/23 05:00 MCH 29.4 pg (28.0-34.0) 02/28/23 05:00 MCHC 31.8 g/dL (30.0-36.0) 02/28/23 05:00 RDW 14.0 % (12.1-15.1) 02/28/23 05:00 Plt Count 197 10^3/cmm (130-400) 02/28/23 05:00 MPV 11.0 fL (7.4-10.4) H 02/28/23 05:00 Neut % (Auto) 92.0 % 02/28/23 05:00 Lymph % (Auto) 1.9 % 02/28/23 05:00 [place] % (Auto) 4.5 % 02/28/23 05:00 Eos % (Auto) 0.0 % 02/28/23 05:00 Baso % (Auto) 0.1 % 02/28/23 05:00 Neut # (Auto) 12.70 10^3/uL (1.8-7.7) H 02/28/23 05:00 Lymph # (Auto) 0.3 10^3/uL (0.8-4.8) L 02/28/23 05:00 [place] # (Auto) 0.6 10^3/uL (0.2-0.9) 02/28/23 05:00 Eos # (Auto) 0.0 10^3/uL (0.0-0.8) 02/28/23 05:00 Baso # (Auto) 0.0 10^3/uL (0.0-0.1) 02/28/23 05:00 Nucleated RBC % (auto) 0 % 02/28/23 05:00 Nucleated RBCs # 0.0 /100WBC 02/28/23 05:00 PT 16.30 SECONDS (12.1-14.9) H 02/21/23 10:00 INR 1.27 (0.8-1.2) H 02/21/23 10:00 APTT 27.9 SECONDS (23.9-36.7) 02/21/23 10:00 Fibrinogen 378 mg/dL (174-498) 02/21/23 10:00 Fibrin Degrad Products Not Reportable 02/21/23 10:00 D-Dimer 5.31 ug/mIFEU (0-0.59) H 02/21/23 10:00 Specimen Type Arterial 02/22/23 04:00 Sample Site Radial, right 02/22/23 04:00 ABG pH 7.36 (7.35-7.45) 02/22/23 04:00 ABG pCO2 68.8 mmHg (35-45) H* 02/22/23 04:00 ABG pO2 78.0 mmHg (80.0-100.0) L 02/22/23 04:00 ABG HCO3 38.5 mmol/L (22-26) H 02/22/23 04:00 ABG Base Excess 10.2 mmol/L (-2.0-2.0) H 02/22/23 04:00 Geremias Test Pos 02/22/23 04:00 Hematocrit 41.1 % (42-52) L 02/22/23 04:00 Hgb O2 Saturation 87.5 % (95-100) L 02/21/23 04:17 Carboxyhemoglobin 1.8 %THgb (0.4-20.1) 02/21/23 04:17 Methemoglobin 0.4 % (0.4-1.5) 02/21/23 04:17 Total Hemoglobin 14.3 g/dL (14-18) 02/21/23 04:17 O2 Delivery Device Nc 02/22/23 04:00 O2 Liters/Min 5.0 % 02/22/23 04:00 FiO2 48.0 % 02/21/23 04:17 Supervisor Rough End ID adriennepe 02/22/23 04:00 Sodium 140 mmol/L (136-145) 02/28/23 05:00 Potassium 4.9 mmol/L (3.5-5.1) 02/28/23 05:00 Chloride 100 mmol/L (98-107) 02/28/23 05:00 Carbon Dioxide 39 mmol/L (22-29) H 02/28/23 05:00 Anion Gap 5.9 (5-19) 02/28/23 05:00 BUN 27 mg/dL (8-23) H 02/28/23 05:00 Creatinine 0.4 mg/dL (0.7-1.2) L 02/28/23 05:00 GFR Calculation Not Reportable 02/28/23 05:00 Glucose 111 mg/dL (65-115) 02/28/23 05:00 Calculated Osmolality 296 mOsm/kg (285-295) H 02/28/23 05:00 Lactic Acid 3.4 mmol/L (0.5-2.2) H 02/21/23 05:07 Lactic Acid (Sepsis) 2.3 mmol/L (0.5-2.2) H 02/21/23 07:53 Calcium 8.4 mg/dL (8.5-10.5) L 02/28/23 05:00 Phosphorus 3.8 mg/dL (2.5-4.5) 02/22/23 03:46 Magnesium 2.0 mg/dL (1.7-2.3) 02/22/23 03:46 Total Bilirubin 0.7 mg/dL (0.15-1.2) 02/28/23 05:00 AST 21 U/L (0-40) 02/28/23 05:00 ALT 86 U/L (0-41) H 02/28/23 05:00 Alkaline Phosphatase 38 U/L (40-130) L 02/28/23 05:00 Troponin T Baseline 38 ng/L (0-15) H 02/21/23 07:53 Troponin T 120 Minute 35.32 ng/L (0-15) H 02/21/23 10:00 Delta Troponin T -2.68 ABS# (0-10) L 02/21/23 10:00 Troponin T Hi Sens 6Hr 27.28 ng/L (0-15) H 02/21/23 14:18 Troponin T Hi Sens 6Hr Delta -10.72 ng/L (0-12) L 02/21/23 14:18 C-Reactive Protein 6.6 mg/L (0.0-4.9) H 02/22/23 03:46 NT-Pro-B Natriuret Pep 802 pg/mL (0-125) H 02/21/23 05:07 Total Protein 5.1 g/dL (6.6-8.7) L 02/28/23 05:00 Albumin 3.1 g/dL (3.5-5.2) L 02/28/23 05:00 Globulin 2.0 g/dL (1.3-4.6) 02/28/23 05:00 Procalcitonin 0.03 ng/mL (0-0.5) 02/27/23 04:57 TSH 1.25 uIU/mL (0.27-4.20) 02/21/23 07:53 Random Cortisol 23.50 ug/dL (2.47-19.5) H 02/21/23 10:00 Nasal Influ A H1 2009 PCR Not detected (NOT DETECT) 02/21/23 09:00 Vancomycin Trough 13.3 ug/mL (10-15) 02/24/23 21:58 Adenovirus (PCR) Not detected (NOT DETECT) 02/21/23 09:00 C. pneumoniae DNA (PCR) Not detected (NOT DETECT) 02/21/23 09:00 Coronavirus 229E (PCR) Not detected (NOT DETECT) 02/21/23 09:00 Human Metapneumovir PCR Not detected (NOT DETECT) 02/21/23 09:00 Influenza A (H1) PCR Not detected (NOT DETECT) 02/21/23 09:00 Influenza A (H3) PCR Not detected (NOT DETECT) 02/21/23 09:00 Influenza Type A (PCR) Not detected (NOT DETECT) 02/21/23 09:00 Influenza Type B (PCR) Not detected (NOT DETECT) 02/21/23 09:00 M. pneumoniae (PCR) Not detected (NOT DETECT) 02/21/23 09:00 Parainfluenza 1 (PCR) Not detected (NOT DETECT) 02/21/23 09:00 Parainfluenza 2 (PCR) Not detected (NOT DETECT) 02/21/23 09:00 Parainfluenza 3 (PCR) Not detected (NOT DETECT) 02/21/23 09:00 Parainfluenza 4 (PCR) Not detected (NOT DETECT) 02/21/23 09:00 RSV Type A (PCR) Not detected (NOT DETECT) 02/21/23 09:00 RSV Type B (PCR) Not detected (NOT DETECT) 02/21/23 09:00 Entero/Rhino (PCR) Not detected (NOT DETECT) 02/21/23 09:00 SARS-CoV-2 (PCR) Not detected (NOT DETECT) 02/21/23 09:00 Vitals Last Vital Signs Temp 97.5 F L 03/01/23 08:10 Pulse 89 03/01/23 08:10 Resp 16 03/01/23 08:10 BP 117/84 03/01/23 08:10 Pulse Ox 91 03/01/23 08:10 O2 Del Method Nasal Cannula 03/01/23 08:10 O2 Flow Rate 4 03/01/23 08:00 FiO2 45 03/01/23 02:00 Discharge Plan Discharge Patient Disposition: Home Condition: Stable Prescriptions: New diltiazem HCl 180 mg capsule,extended release 24hr 180 mg PO Q24H 30 Days Qty: 30 0RF prednisone 5 mg tablet 5 mg PO DAILY 30 Days Qty: 30 0RF Rx Instructions: start after you are finished with taper pantoprazole [Protonix] 40 mg tablet,delayed release (DR/EC) 40 mg PO DAILY 28 Days Qty: 30 1RF prednisone 10 mg tablets,dose pack See Taper PO DAILY Qty: 21 0RF Taper: predniSONE 60-10 60 mg Daily for 2 Days and 0 Hour 50 mg Daily for 2 Days and 0 Hour 40 mg Daily for 2 Days and 0 Hour 30 mg Daily for 2 Days and 0 Hour 20 mg Daily for 2 Days and 0 Hour 10 mg Daily for 2 Days and 0 Hour Continued apixaban 5 mg tablet 5 mg PO BID@0800,2000 albuterol sulfate [ProAir HFA] 90 mcg/actuation HFA aerosol inhaler 1 inh inhalation QID PRN (Reason: Shortness Of Breath) budesonide 0.5 mg/2 mL suspension for nebulization 0.5 mg inhalation BID Qty: 120 6RF furosemide [Lasix] 20 mg tablet 20 mg PO DAILY Qty: 60 3RF potassium chloride 10 mEq tablet extended release 10 meq PO DAILY Qty: 30 3RF arformoterol 15 mcg/2 mL solution for nebulization 2 ml inhalation BID Qty: 120 6RF Spiriva Respimat 1.25 mcg/actuation mist 2 puff inhalation DAILY Qty: 4 6RF cholecalciferol (vitamin D3) [Vitamin D3] 25 mcg (1,000 unit) Capsule 25 mcg PO DAILY Qty: 0 ferrous sulfate 325 mg PO BID levetiracetam 500 mg Tablet 500 mg PO BID rosuvastatin 40 mg Tablet 40 mg PO .EVENING Mucinex 600 mg tablet extended release 12hr 600 mg PO BID PRN (Reason: Congestion) Discontinued diltiazem HCl 120 mg capsule,extended release 12 hr 120 mg PO Q12H Discharge Orders: Discharge Order (Routine); Ordered 03/01/23 Ordered By: Ce Victor Referrals: Jackie Kulkarni MD [Primary Care Provider] - Datar,Alex Frances MD [Physician] - 3 weeks Everett Killian MD [Physician] - (per request of Kimo /cancelled February appointment .Kimo in hospital at this time;have rescheduled this appointment to: Monday ,February at check in time of 08:30 for appointment at 09:00 am) Discharge Diet: Usual diet Discharge Activity: Resume usual activity Patient Instructions: Opioid Safety Discharge Attestations Time Spent in Discharge Care*: greater than 30 min Quality Metrics Clinical Quality Measures [ No reported AMI, CVA or VTE this stay] Coding Level of Care Code Acute Code for Chg Fwd Diagnoses Respiratory failure J96.01; J96.02 Chronicity: acute Respiratory failure complication: hypoxia and hypercapnia Atrial fibrillation with RVR I48.91 Acute exacerbation of chronic obstructive pulmonary disease J44.1 Cough R05.9 Oral candidiasis B37.0 Peripheral arterial disease I73.9 Benign essential HTN I10 Solitary pulmonary nodule on lung CT R91.1 DA (obstructive sleep apnea) G47.33 Acute on chronic respiratory failure with hypoxia and hypercapnia J96.21; J96.22 CHF exacerbation I50.9 Pulmonary hypertension I27.20
[2023-03-01] MEDS: dilTIAZem 60 mg Tablet PO (10:48)
--- NOTE | 2023-03-01 11:02 | PC.NURSE ---
Discharge pending transportation. Ride should be here after 1400.
[2023-03-02 02:40] LABS: Fibrinogen Degradation Product 5 mcg/mL (LESS THAN 5)
[2023-03-22 12:38] LABS: ABG PCO2 68.8 mmHg (35-45)
== END 2023-03-01 15:16 | disposition home or self-care (01) | DRG 189 ==
LOC: ER 05:52 → ICU 06:35 → MEDSURG 02-22 13:25
PROVIDERS: Internal Medicine; Admitting Provider Internal Medicine; Emergency Provider Emergency Medicine; PCP Family Medicine; Visit Provider Student in an Organized Health Care Education/Training Program
DX: J96.22 Acute and chronic respiratory failure with hypercapnia (principal); I50.33 Acute on chronic diastolic (congestive) heart failure; J44.1 Chronic obstructive pulmonary disease with (acute) exacerbation; B37.0 Candidal stomatitis; J96.21 Acute and chronic respiratory failure with hypoxia; I48.91 Unspecified atrial fibrillation; I11.0 Hypertensive heart disease with heart failure; I27.20 Pulmonary hypertension, unspecified; Z99.81 Dependence on supplemental oxygen; G47.33 Obstructive sleep apnea (adult) (pediatric); Z79.51 Long term (current) use of inhaled steroids; Z87.891 Personal history of nicotine dependence; F32.A Depression, unspecified; R91.8 Other nonspecific abnormal finding of lung field; I73.9 Peripheral vascular disease, unspecified; Z98.890 Other specified postprocedural states; E87.6 Hypokalemia
CPT/HCPCS: 36415; 36600; 51702; 71045; 71250; 80048; 80053; 80202; 82533; 82803; 82805; 83605; 83735; 83880; 84100; 84145; 84443; 84484; 85025; 85362; 85378; 85384; 85610; 85730; 86140; 87040; 87070; 87205; 87486; 87581; 87633; 87641; 93005; 93306; 93970; 94640; 94660; 96365; 96372; 96375; 96376; 99291; J0696; J1650; J1940; J2185; J2543; J2920; J2930; J3370; J3475; J7512; J7613; J7614; J7626; J7644; Q0144

== ENCOUNTER → 2023-03-15 10:45 | Outpatient (BNVA) | payer OTHER, SELFPAY | PROVIDERS: PCP Family Medicine; Visit Provider Dermatology | DX: D03.9 Melanoma in situ, unspecified (principal) | CPT/HCPCS: 11624; 12042 ==

== ENCOUNTER → 2023-03-31 11:14 | Outpatient (BNVA) | payer OTHER, SELFPAY | PROVIDERS: PCP Family Medicine; Visit Provider Internal Medicine Pulmonary Disease | DX: Z09 Encounter for follow-up examination after completed treatment for conditions other than malignant neoplasm (principal); G47.33 Obstructive sleep apnea (adult) (pediatric); Z71.6 Tobacco abuse counseling; J44.9 Chronic obstructive pulmonary disease, unspecified; R91.8 Other nonspecific abnormal finding of lung field; Z87.891 Personal history of nicotine dependence; I10 Essential (primary) hypertension; I48.91 Unspecified atrial fibrillation; Z99.89 Dependence on other enabling machines and devices; Z91.199 Patient's noncompliance with other medical treatment and regimen due to unspecified reason | CPT/HCPCS: 99214 ==

== ENCOUNTER 2023-05-12 21:35 | Emergency (ER) | payer OTHER, SELFPAY ==
[2023-05-12 21:38] VITALS: BP 156/84; PULSE 119; RESP 22; TEMP 36.6; O2SAT 88
[2023-05-12 21:57] VITALS: BP 152/96; PULSE 110; RESP 20; TEMP 36.1; O2SAT 95
--- NOTE | 2023-05-12 22:02 | ED_ITS ---
Documented by User: BERKLEY Silverio 05/12/23 23:51 HPI - Epistaxis General: Chief complaint: Epistaxis Stated complaint: nose bleed Time Seen by Provider: 05/12/23 21:57 Source: patient and family Mode of arrival: wheelchair Limitations: no limitations History of Present Illness: Patient presents emergency department today accompanied by his for evaluation treatment of nosebleed. Patient reports spontaneous bleeding out of his left nostril around 7 PM. Patient takes Eliquis twice a day. He admits that even after his no started bleeding he took his nightly dose of Eliquis. Patient has not been successful in getting the bleeding to stop. He states he is also spitting it out of his mouth but has not had any upset stomach or vomiting due to swallowing of blood. Patient has chronic COPD and is typically on 4 L by nasal cannula. Review of Systems General: Reports: 10 or more systems reviewed and unremarkable except in HPI and below PFSH ED PFSH: Medical History A-fib Benign essential HTN COPD (chronic obstructive pulmonary disease) Depression Dyspnea on exertion Hx of seizure disorder Iliac artery aneurysm, bilateral DA (obstructive sleep apnea) Peripheral arterial disease Popliteal artery aneurysm Sleep apnea in adult Spinal stenosis Tinnitus Surgical History History of AAA (abdominal aortic aneurysm) repair 2010 History of colonoscopy with polypectomy 2018 History of left inguinal hernia repair 2016 History of PTCA History of vascular surgery rt and left leg 2019 S/P hernia repair incisional Family History Mother Cancer Diabetes Father CAD (coronary artery disease) Cancer Chronic kidney disease (CKD) Diabetes Brother No problems noted. Sister No problems noted. Grandfather Lung disease Denies family history of Clotting disorder Dementia Suicide Anesthesia complication Bleeding disorder Stroke Social History Smoking and tobacco/nicotine status: former use of tobacco/nicotine Alcohol intake: never Substance/Drug Use: never Physical Exam Const: COMMON NORMALS: no acute distress, patient oriented x3 and alert HENMT: OTHER: Patient currently has nasal clamp in place so nasal passage evaluation is deferred at this time however, there is obvious fresh blood at the opening of the left nasal passage and still a drip of blood every so often. Pharynx with fresh blood present as well. Pharynx is patent. Eye: COMMON NORMALS: Equal, round and reactive pupils present, EOMs intact bilaterally and conjunctivae normal CONJUNCTIVA: Yes conjunctivae normal PUPIL: Yes Equal, round and reactive pupils present Neck/C-Spine: COMMON NORMALS: no JVD Lymph: LYMPHATIC: no lymphadenopathy noted Resp: COMMON NORMALS: normal respiratory effort, No retractions and No use of accessory muscles OTHER: Patient has nasal cannula in his mouth due to nasal clamp in place. Cardio: COMMON NORMALS: no JVD and regular rate RATE: regular rate : COMMON NORMALS: Yes no CVA tenderness BLADDER/KIDNEY EXAM: Yes no CVA tenderness Back/Pelvis: COMMON NORMALS: no CVA tenderness, thoracic and lumbar spine normal to inspection and thoraco-lumbar ROM normal Extremity: COMMON NORMALS: normal to inspection, full ROM and no pedal edema Neuro: COMMON NORMALS: patient oriented x3 SENSORIUM/ORIENTATION: Yes alert Skin: COMMON NORMALS: no rashes or lesions noted and turgor normal GENERAL SKIN EXAM: no rashes or lesions noted and turgor normal Course Vital Signs: Vital signs: Vital Signs Temperature 97.0 F L 05/12/23 21:57 Pulse Rate 111 H 05/12/23 22:38 Respiratory Rate 22 H 05/12/23 23:56 Blood Pressure 152/96 05/12/23 23:56 Pulse Oximetry 96 05/12/23 22:38 Oxygen Delivery Me thod Nasal Cannula 05/12/23 22:38 Oxygen Flow Rate 4 05/12/23 22:38 MDM - Epistaxis Medical Decision Making Initial attempt at nasal clamping for approximately 30 minutes revealed no acute improvement of bleeding. I did recruit the help of Dr. Landa who at bedside attempted cautery. Silver nitrate did not significantly improve the bleeding though it was noted to have slowed some. We have tried gauze packing and reclamping but, oozing of blood still present. Dr. Landa then took Gelfoam and coated it in tranexamic acid after first applying 2 sprays of Afrin and placed packing up beyond the nasal turbinates. After approximately 15 to 20 minutes of monitoring, patient had no obvious return of the oozing of blood either from the nasal passage or down the pharynx. At this point, patient was encouraged to hold his Eliquis for 48 hours. A referral to ENT for follow-up and packing removal was placed on his behalf. Patient was told to be seen and reevaluated again in the emergency department if bleeding reoccurs. Patient verbalized understanding and agreement to treatment plan. Differential Diagnosis Likely posterior epistaxis (On blood thinner); Unlikely nasal bone fracture or anterior epistaxis No radiology studies performed this visit Discharge Plan Discharge Patient Disposition: Home Clinical Impression: Epistaxis, COPD (chronic obstructive pulmonary disease), Chronic anticoagulation Condition: Stable Prescriptions: No Action apixaban 5 mg tablet 5 mg PO BID@0800,2000 albuterol sulfate [ProAir HFA] 90 mcg/actuation HFA aerosol inhaler 1 inh inhalation QID PRN (Reason: Shortness Of Breath) budesonide 0.5 mg/2 mL suspension for nebulization 0.5 mg inhalation BID Qty: 120 6RF prednisolone 5 mg tablet 5 mg PO DAILY Qty: 30 3RF furosemide [Lasix] 20 mg tablet 20 mg PO DAILY Qty: 60 3RF potassium chloride 10 mEq tablet extended release 10 meq PO DAILY Qty: 30 3RF arformoterol 15 mcg/2 mL solution for nebulization 2 ml inhalation BID Qty: 120 6RF Spiriva Respimat 1.25 mcg/actuation mist 2 puff inhalation DAILY Qty: 4 6RF cholecalciferol (vitamin D3) [Vitamin D3] 25 mcg (1,000 unit) Capsule 25 mcg PO DAILY Qty: 0 ferrous sulfate 325 mg PO BID levetiracetam 500 mg Tablet 500 mg PO BID rosuvastatin 40 mg Tablet 40 mg PO .EVENING Mucinex 600 mg tablet extended release 12hr 600 mg PO BID PRN (Reason: Congestion) Protonix 40 mg tablet,delayed release (DR/EC) 40 mg PO DAILY 28 Days Qty: 30 1RF Discharge Orders: Discharge ED (Routine); Ordered 05/12/23 Ordered By: Savanna Jarquin Referrals: Jackie Kulkarni MD [Primary Care Provider] - Discharge Diet: Usual diet Discharge Activity: Increase activity as tolerated Patient Instructions: Epistaxis - Adult Activity Restrictions/Additional Instructions: Examination today was concerning for a posterior nosebleed. These bleeds that occur in the furthest portion inside your nose often are accompanied by bleeding down the back of the throat. These can be extremely difficult to control- especially being on a blood thinner. Unfortunately, after several attempts to clamp and cauterize, we did wind up having to pack the left side of your nasal passage. I have requested a follow-up appointment with her hearing healthcare practitioner at the beginning of the week to have them remove your packing and to get a recheck. Given that you typically use a nasal cannula, we do recommend switching over to a facemask to allow for better oxygen delivery for chronic COPD. Carefully watch for any return of bleeding including bleeding from the front nasal passage or, recurrence of bleeding down the back of your throat. If these agree need to be seen and reevaluated. Please hold your Eliquis for the next 48 hours. Attempt not to sneeze or blow your nose until you are seen and evaluated by ENT. We would like packing to stay in place until you are seen by ENT however, a solid 72 hours would be best. Coding Level of Care Code ED Disability Rater for Chg Fwd Documented by User: Estevan Landa DO 05/13/23 16:00 HPI - Epistaxis General: Chief complaint: Epistaxis Stated complaint: nose bleed Time Seen by Provider: 05/12/23 21:57 PFS ED PFSH: Medical History A-fib Benign essential HTN COPD (chronic obstructive pulmonary disease) Depression Dyspnea on exertion Hx of seizure disorder Iliac artery aneurysm, bilateral DA (obstructive sleep apnea) Peripheral arterial disease Popliteal artery aneurysm Sleep apnea in adult Spinal stenosis Tinnitus Surgical History History of AAA (abdominal aortic aneurysm) repair 2009 History of colonoscopy with polypectomy 2018 History of left inguinal hernia repair 2016 History of PTCA History of vascular surgery rt and left leg 2019 S/P hernia repair incisional Family History Mother Cancer Diabetes Father CAD (coronary artery disease) Cancer Chronic kidney disease (CKD) Diabetes Brother No problems noted. Sister No problems noted. Grandfather Lung disease Denies family history of Clotting disorder Dementia Suicide Anesthesia complication Bleeding disorder Stroke Social History Smoking and tobacco/nicotine status: former use of tobacco/nicotine Alcohol intake: never Substance/Drug Use: never Procedures Epistaxis Control Time Out Performed: No Nostril: left Nose Prepped With: other (cetacaine ) Direct Inspection: yes Clots Removed by: blowing nose and suction Cautery Used: silver nitrate Device Inserted: hemostatic dressing (TXA soaked gelfoam) Patient Tolerated Procedure: well and no complications Course Vital Signs: Vital signs: Vital Signs Temperature 97.0 F L 05/12/23 21:57 Pulse Rate 111 H 05/12/23 22:38 Respiratory Rate 22 H 05/12/23 23:56 Blood Pressure 152/96 05/12/23 23:56 Pulse Oximetry 96 05/12/23 22:38 Oxygen Delivery Me thod Nasal Cannula 05/12/23 22:38 Oxygen Flow Rate 4 05/12/23 22:38 MDM - Epistaxis Medical Decision Making Initial attempt at nasal clamping for approximately 30 minutes revealed no acute improvement of bleeding. I did recruit the help of Dr. Landa who at bedside attempted cautery. Silver nitrate did not significantly improve the bleeding though it was noted to have slowed some. We have tried gauze packing and reclamping but, oozing of blood still present. Dr. Landa then took Gelfoam and coated it in tranexamic acid after first applying 2 sprays of Afrin and placed packing up beyond the nasal turbinates. After approximately 15 to 20 minutes of monitoring, patient had no obvious return of the oozing of blood either from the nasal passage or down the pharynx. At this point, patient was encouraged to hold his Eliquis for 48 hours. A referral to ENT for follow-up and packing removal was placed on his behalf. Patient was told to be seen and reevaluated again in the emergency department if bleeding reoccurs. Patient verbalized understanding and agreement to treatment plan. This patient was originally seen by Reina Jarquin PA-C. I agree with her history, evaluation, and management. I performed jones portions of exam as well, and managed the epistaxis as above. Discharge Plan Discharge Patient Disposition: Home Clinical Impression: Epistaxis, COPD (chronic obstructive pulmonary disease), Chronic anticoagulation Condition: Stable Prescriptions: No Action apixaban 5 mg tablet 5 mg PO BID@0800,2000 albuterol sulfate [ProAir HFA] 90 mcg/actuation HFA aerosol inhaler 1 inh inhalation QID PRN (Reason: Shortness Of Breath) budesonide 0.5 mg/2 mL suspension for nebulization 0.5 mg inhalation BID Qty: 120 6RF prednisolone 5 mg tablet 5 mg PO DAILY Qty: 30 3RF furosemide [Lasix] 20 mg tablet 20 mg PO DAILY Qty: 60 3RF potassium chloride 10 mEq tablet extended release 10 meq PO DAILY Qty: 30 3RF arformoterol 15 mcg/2 mL solution for nebulization 2 ml inhalation BID Qty: 120 6RF Spiriva Respimat 1.25 mcg/actuation mist 2 puff inhalation DAILY Qty: 4 6RF cholecalciferol (vitamin D3) [Vitamin D3] 25 mcg (1,000 unit) Capsule 25 mcg PO DAILY Qty: 0 ferrous sulfate 325 mg PO BID levetiracetam 500 mg Tablet 500 mg PO BID rosuvastatin 40 mg Tablet 40 mg PO .EVENING Mucinex 600 mg tablet extended release 12hr 600 mg PO BID PRN (Reason: Congestion) Protonix 40 mg tablet,delayed release (DR/EC) 40 mg PO DAILY 28 Days Qty: 30 1RF Discharge Orders: Discharge ED (Routine); Ordered 05/12/23 Ordered By: Savanna Jarquin Referrals: Jackie Kulkarni MD [Primary Care Provider] - Discharge Diet: Usual diet Discharge Activity: Increase activity as tolerated Patient Instructions: Epistaxis - Adult Activity Restrictions/Additional Instructions: Examination today was concerning for a posterior nosebleed. These bleeds that occur in the furthest portion inside your nose often are accompanied by bleeding down the back of the throat. These can be extremely difficult to control- especially being on a blood thinner. Unfortunately, after several attempts to clamp and cauterize, we did wind up having to pack the left side of your nasal passage. I have requested a follow-up appointment with her hearing healthcare practitioner at the beginning of the week to have them remove your packing and to get a recheck. Given that you typically use a nasal cannula, we do recommend switching over to a facemask to allow for better oxygen delivery for chronic COPD. Carefully watch for any return of bleeding including bleeding from the front nasal passage or, recurrence of bleeding down the back of your throat. If these agree need to be seen and reevaluated. Please hold your Eliquis for the next 48 hours. Attempt not to sneeze or blow your nose until you are seen and evaluated by ENT. We would like packing to stay in place until you are seen by ENT however, a solid 72 hours would be best. Coding Level of Care Code ED Disability Rater for Love Owusu
[2023-05-12 22:38] VITALS: BP 152/96; PULSE 111; O2SAT 96
[2023-05-12] MEDS: cetacaine Spray 5 gm Can 1 SPRAY TOPICAL (22:46)
[2023-05-12] MEDS: silver nitrate applicator 1 EACH TOPICAL (22:46)
[2023-05-12] MEDS: gelatin 12-7 mm Sponge 1 EACH TOPICAL (23:01)
[2023-05-12] MEDS: oxymetazoline 0.05% Nasal Spray 15 mL 2 SPRAY NOSTRIL-L (23:01)
[2023-05-12] MEDS: tranexamic acid 1,000 mg/10mL SDV 1000 MG IRRIGATION (23:02)
[2023-05-12 23:56] VITALS: BP 152/96; RESP 22
--- NOTE | 2023-05-15 09:00 | DCPLANNER ---
Referral was sent to ENT on 05/15/23 at 0900. Clinic to contact patient
== END 2023-05-13 00:04 | disposition home or self-care (01) ==
PROVIDERS: Emergency Provider Physician Assistant; PCP Family Medicine
DX: R04.0 Epistaxis (principal); J44.9 Chronic obstructive pulmonary disease, unspecified; Z79.01 Long term (current) use of anticoagulants; D68.318 Other hemorrhagic disorder due to intrinsic circulating anticoagulants, antibodies, or inhibitors; I10 Essential (primary) hypertension; Z87.891 Personal history of nicotine dependence
CPT/HCPCS: 30905; 99283; 99291

== ENCOUNTER 2023-05-17 16:05 | Emergency (ER) | payer OTHER, SELFPAY ==
[2023-05-17 16:18] VITALS: BP 124/88; PULSE 85; RESP 17; TEMP 36.5; O2SAT 88; BMI 26.6
--- NOTE | 2023-05-17 16:27 | ED_ITS ---
HPI - Medical Clearance General: Chief complaint: Medical Clearance Stated complaint: plug in nose Time Seen by Provider: 05/17/23 16:17 Source: patient Mode of arrival: ambulatory Limitations: no limitations History of Present Illness: 72-year-old male seen here 2 days ago with a nosebleed had a Gelfoam packing placed in his left nostril he states been try to get an ENT came here to have it removed. He denies any more bleeding he denies any worsening improving factors he has held his Eliquis. Review of Systems Const: Denies: fever(s) or chills ENMT: Reports: epistaxis; Denies: throat pain or dental pain Card: Denies: chest pain Resp: Denies: dyspnea GI: Denies: abdominal pain, nausea, vomiting or diarrhea : Denies: dysuria Musc: Denies: neck pain or back pain Skin/Breast: Denies: rash Neuro: Denies: headache(s) PFSH ED PFSH: Medical History A-fib Benign essential HTN COPD (chronic obstructive pulmonary disease) Depression Dyspnea on exertion Hx of seizure disorder Iliac artery aneurysm, bilateral DA (obstructive sleep apnea) Peripheral arterial disease Popliteal artery aneurysm Sleep apnea in adult Spinal stenosis Tinnitus Surgical History History of AAA (abdominal aortic aneurysm) repair 2010 History of colonoscopy with polypectomy 2018 History of left inguinal hernia repair 2016 History of PTCA History of vascular surgery rt and left leg 2019 S/P hernia repair incisional Family History Mother Cancer Diabetes Father CAD (coronary artery disease) Cancer Chronic kidney disease (CKD) Diabetes Brother No problems noted. Sister No problems noted. Grandfather Lung disease Denies family history of Clotting disorder Dementia Suicide Anesthesia complication Bleeding disorder Stroke Social History Smoking and tobacco/nicotine status: former use of tobacco/nicotine Alcohol intake: never Substance/Drug Use: never Physical Exam Const: COMMON NORMALS: no acute distress and patient oriented x3 HENMT: COMMON NORMALS: normocephalic and atraumatic HEAD & SCALP: normocephalic and atraumatic OTHER: Did not see any packing in his left nare no bleeding at this time Eye: COMMON NORMALS: conjunctivae normal CONJUNCTIVA: Yes conjunctivae normal Chest: COMMONS NORMALS: normal inspection of the chest Resp: COMMON NORMALS: normal respiratory effort Extremity: COMMON NORMALS: normal to inspection Neuro: COMMON NORMALS: patient oriented x3 Psych: COMMON NORMALS: mental status grossly normal Course Vital Signs: Vital signs: Vital Signs Temperature 97.7 F 05/17/23 16:18 Pulse Rate 85 05/17/23 16:18 Respiratory Rate 17 05/17/23 16:18 Blood Pressure 124/88 05/17/23 16:18 Pulse Oximetry 88 L 05/17/23 16:18 Oxygen Delivery Me thod Nasal Cannula 05/17/23 16:18 MDM - Medical Clearance Medical Decision Making Patient presents here wanting a packing removed from his left nose I examined his nare examined with otoscope blood did not see any Gelfoam and there likely is already fallen out he is stable for discharge we will get him follow-up with ENT return if worsening. Medical Records I reviewed the patient's medical records. No radiology studies performed this visit Discharge Plan Discharge Patient Disposition: Home Clinical Impression: Epistaxis Condition: Stable Prescriptions: No Action apixaban 5 mg tablet 5 mg PO BID@0800,2000 albuterol sulfate [ProAir HFA] 90 mcg/actuation HFA aerosol inhaler 1 inh inhalation QID PRN (Reason: Shortness Of Breath) budesonide 0.5 mg/2 mL suspension for nebulization 0.5 mg inhalation BID Qty: 120 6RF prednisolone 5 mg tablet 5 mg PO DAILY Qty: 30 3RF furosemide [Lasix] 20 mg tablet 20 mg PO DAILY Qty: 60 3RF potassium chloride 10 mEq tablet extended release 10 meq PO DAILY Qty: 30 3RF arformoterol 15 mcg/2 mL solution for nebulization 2 ml inhalation BID Qty: 120 6RF Spiriva Respimat 1.25 mcg/actuation mist 2 puff inhalation DAILY Qty: 4 6RF cholecalciferol (vitamin D3) [Vitamin D3] 25 mcg (1,000 unit) Capsule 25 mcg PO DAILY Qty: 0 ferrous sulfate 325 mg PO BID levetiracetam 500 mg Tablet 500 mg PO BID rosuvastatin 40 mg Tablet 40 mg PO .EVENING Mucinex 600 mg tablet extended release 12hr 600 mg PO BID PRN (Reason: Congestion) Protonix 40 mg tablet,delayed release (DR/EC) 40 mg PO DAILY 28 Days Qty: 30 1RF Discharge Orders: Discharge ED (Routine); Ordered 05/17/23 Ordered By: Yuliya Zavala Referrals: Jackie Kulkarni MD [Primary Care Provider] - Gerardo Gomez MD [Physician] - 1-3 days Discharge Diet: Advance as tolerated Discharge Activity: Resume usual activity Patient Instructions: Epistaxis - Adult Coding Level of Care Code ED Industrial Health Engineer for Henrryg Umer
--- NOTE | 2023-05-18 08:09 | DCPLANNER ---
Referral was sent to [facility] ENT on 05/18/23 at 0809. Clinic to contact patient
== END 2023-05-17 16:38 | disposition home or self-care (01) ==
PROVIDERS: Emergency Provider Emergency Medicine; PCP Family Medicine
DX: Z46.89 Encounter for fitting and adjustment of other specified devices (principal); Z87.891 Personal history of nicotine dependence; J44.9 Chronic obstructive pulmonary disease, unspecified; I10 Essential (primary) hypertension
CPT/HCPCS: 99282

== ENCOUNTER 2023-06-04 13:57 | Emergency (ER) | payer OTHER, SELFPAY ==
[2023-06-04 14:02] VITALS: PULSE 102; RESP 20; TEMP 36.8; O2SAT 96; BMI 31.0
--- NOTE | 2023-06-04 14:03 | ECG_ITS ---
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 Measurements Intervals Spearman Rate: 92 P: 0 CT: 0 QRS: 68 QRSD: 100 T: 22 QT: 350 QTc: 435 Interpretive Statements ATRIAL FIBRILLATION ST DEPRESSION [0.05+ mV ST DEPRESSION] Compared to ECG 02/21/2023 13:14:16 No significant changes Electronically Signed On 06-05-2023 9:17:01 HEAD WAITER by Wilbert Porter M.D. [email or web address]
--- NOTE | 2023-06-04 14:03 | XRR_ITS ---
PROCEDURE INFORMATION: Exam: XR Chest Exam date and time: 06/04/2023 2:19 PM Age: 72 years old Clinical indication: Dyspnea; Prior surgery; Surgery date: 6+ months; Surgery type: Aaa.No history of trauma or recent surgery is provided. TECHNIQUE: Imaging protocol: Radiologic exam of the chest. 1image(s) are provided. Views: 1 view. COMPARISON: 1. CT chest wo con [id number] 02/26/2023 8:18 AM 2. CR XR chest 1V portable [id number] 02/21/2023 4:14 AM 3. CR (CHEST, ) 01/25/2023 8:04 PM FINDINGS: Lungs: There are some granulomatous calcific related changes present. There is minimal subsegmental atelectasis versus post inflammatory scarring demonstrated of the lung bases.No interval lobar consolidation is appreciated. Pleural spaces: No pneumothorax or pleural effusion is appreciated. Heart/Mediastinum: The cardiomediastinal silhouette is upper normal in size.This can be seen with central averaging as well as hollis enlargement.No cardiac decompensation is appreciated. Diaphragm: The hemidiaphragms are symmetric. Bones/joints: Osseous alignment is maintained.No interval displaced fracture or dislocation is appreciated. Soft tissues: No radiopaque foreign body or subcutaneous emphysema is appreciated. Other findings: There is some mild chronic air trapping appearance overall. XR/XR chest 1V portable [id number] IMPRESSION: No lobar consolidation is appreciated.No interval acute cardiopulmonary changes are appreciated.
--- NOTE | 2023-06-04 14:04 | ED_ITS ---
HPI - SOB/Dyspnea General: Chief Complaint: Arrhythmia/Palpitations Stated Complaint: TACHYCARDIA/SOB Time Seen by Provider: 06/04/23 14:03 History of Present Illness: HPI Narrative: 72-year-old male presents to the emergency department via EMS personnel after calling EMS for feeling like he is extremely short of breath and feeling like his heart is racing. The patient states that he was having trouble catching his breath per EMS report the patient had an oxygen saturation of 80% on room air upon their arrival. EMS placed the patient on supplemental oxygen and improved his oxygen saturation to approximately 95%. Currently here in the emergency department he is on 4 L nasal cannula and having an oxygen saturation of 96%. He does have a history of atrial fibrillation and is currently taking anticoagulation and diltiazem. 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 daily. Associated symptoms: Reports palpitations Review of Systems General: Reports: 10 or more systems reviewed and unremarkable except in HPI and below Const: Reports: fatigue and malaise Card: Reports: palpitations and irregular heart rhythm Resp: Reports: dyspnea, non-productive cough and wheezing [facility] PFSH: Medical History A-fib Benign essential HTN COPD (chronic obstructive pulmonary disease) Depression Dyspnea on exertion Hx of seizure disorder Iliac artery aneurysm, bilateral DA (obstructive sleep apnea) Peripheral arterial disease Popliteal artery aneurysm Sleep apnea in adult Spinal stenosis Tinnitus Surgical History History of AAA (abdominal aortic aneurysm) repair 2009 History of colonoscopy with polypectomy 2018 History of left inguinal hernia repair 2016 History of PTCA History of vascular surgery rt and left leg 2019 S/P hernia repair incisional Family History Mother Cancer Diabetes Father CAD (coronary artery disease) Cancer Chronic kidney disease (CKD) Diabetes Brother No problems noted. Sister No problems noted. Grandfather Lung disease Denies family history of Clotting disorder Dementia Suicide Anesthesia complication Bleeding disorder Stroke Social History Smoking and tobacco/nicotine status: former use of tobacco/nicotine Alcohol intake: never Substance/Drug Use: never Physical Exam Narrative: EXAM NARRATIVE: Constitutional: the patient appears well nourished and with normal development. Vital signs reviewed as documented. Ill-appearing, obvious respiratory distress HENMT: Normocephalic, atraumatic. Extermal ears with normal appearance without drainage. Nose without drainage, normal appearance. Mucus membranes moist. Neck is supple, No jugular venous distension, trachea is midline, no appreciable carotid bruits. No lymphadenopathy. No meningeal signs. Flexion, extension and lateral rotation is without pain. Eyes: Pupils are equal, round, reactive to light and accommodation. No scleral icterus. Extra-ocular movement are intact. Thorax is symmetrical and with equal rise and fall with respirations. Resp: Intermittent expiratory wheezes decreased bilaterally in the bases. Mild respiratory distress Cardio: Irregularly irregular cardiac rhythm consistent with atrial fibrillation at present he is moderately rate controlled.. Positive S1, S2. No appreciable murmurs, rubs or gallops. GI: Abdominal exam reveals normal bowel sounds to all quadrants. No organomegaly. No obvious palpable masses noted. No hepatomegally appreciated. Soft, nontender to palpation. Extremity: Extremities are non-edematous and both femoral and pedal pulses are 2+ and equal bilaterally. Moves all extremities well, sensation in all extr emities. Neuro: Alert and oriented x4, person, place, time and situation. Cranial nerves II through XII are grossly intact, there is no focal neurological deficits that I can appreciate at present. Motor strength in the upper and lower extremities are equal and bilateral 5/5. Psych: Cooperative, calm, normal thought process, appropriate judgment. Skin: No lesions, rashes. No gross abnormalities noted. Back: Symmetrical, no obvious deformity, No CVA tenderness Course Vital Signs: Vital signs: Vital Signs Temperature 98.3 F 06/04/23 14:02 Pulse Rate 102 H 06/04/23 14:02 Respiratory Rate 20 H 06/04/23 14:02 Pulse Oximetry 96 06/04/23 14:02 Oxygen Delivery Me thod Nasal Cannula 06/04/23 14:02 Oxygen Flow Rate 4 06/04/23 14:02 MDM - SOB/Dyspnea Medical Decision Making Physical exam completed and documented, I will obtain a CBC, CMP, cardiac enzymes, twelve-lead EKG, COVID swab and influenza swab as well as a chest x-ray to evaluate. Will obtain a BNP to evaluate fluid status. Medical Records I reviewed the patient's medical records. Lab Data I reviewed the patient's lab results. 06/04/23 14:32 06/04/23 14:32 Labs/Radiology: Radiology Impressions Chest X-Ray 06/04/23 14:03 IMPRESSION: No lobar consolidation is appreciated.No interval acute cardiopulmonary changes are appreciated. Laboratory Results WBC 12.53 10^3/uL (3.29-11.43) H 06/04/23 14:32 RBC 4.76 10^6/uL (3.85-5.65) 06/04/23 14:32 Hgb 13.80 g/dL (11.27-16.99) 06/04/23 14:32 Hct 43.7 % (37-53) 06/04/23 14:32 MCV 91.8 fl (82-101) 06/04/23 14:32 MCH 29.0 pg (27-33) 06/04/23 14:32 MCHC 31.6 g/dL (30-55) 06/04/23 14:32 RDW 14.2 % (12.1-15.1) 06/04/23 14:32 Plt Count 206 10^3/cmm (157-399) 06/04/23 14:32 MPV 10.5 fL (7.4-10.4) H 06/04/23 14:32 Neut % (Auto) 90.9 % 06/04/23 14:32 Lymph % (Auto) 3.1 % 06/04/23 14:32 Randall % (Auto) 4.7 % 06/04/23 14:32 Eos % (Auto) 0.3 % 06/04/23 14:32 Baso % (Auto) 0.3 % 06/04/23 14:32 Neut # (Auto) 11.38 10^3/uL (1.8-7.7) H 06/04/23 14:32 Lymph # (Auto) 0.4 10^3/uL (0.8-4.8) L 06/04/23 14:32 Randall # (Auto) 0.6 10^3/uL (0.2-0.9) 06/04/23 14:32 Eos # (Auto) 0.0 10^3/uL (0.0-0.8) 06/04/23 14:32 Baso # (Auto) 0.0 10^3/uL (0.0-0.1) 06/04/23 14:32 Nucleated RBC % (auto) 0 % 06/04/23 14:32 Nucleated RBCs # 0.0 /100WBC 06/04/23 14:32 PT 17.00 SECONDS (12.1-14.9) H 06/04/23 14:32 INR 1.33 (0.8-1.2) H 06/04/23 14:32 Sodium 139 mmol/L (136-145) 06/04/23 14:32 Potassium 4.5 mmol/L (3.5-5.1) 06/04/23 14:32 Chloride 98 mmol/L (98-107) 06/04/23 14:32 Carbon Dioxide 26 mmol/L (22-29) 06/04/23 14:32 Anion Gap 19.5 (5-19) H 06/04/23 14:32 BUN 21 mg/dL (8-23) 06/04/23 14:32 Creatinine 0.9 mg/dL (0.7-1.2) 06/04/23 14:32 GFR Calculation Not Reportable 06/04/23 14:32 Glucose 146 mg/dL (65-115) H 06/04/23 14:32 Calculated Osmolality 294 mOsm/kg (285-295) 06/04/23 14:32 Calcium 9.4 mg/dL (8.5-10.5) 06/04/23 14:32 Total Bilirubin 0.8 mg/dL (0.15-1.2) 06/04/23 14:32 AST 15 U/L (0-40) 06/04/23 14:32 ALT 11 U/L (0-41) 06/04/23 14:32 Alkaline Phosphatase 94 U/L (40-130) 06/04/23 14:32 Troponin T Baseline 28 ng/L (0-15) H 06/04/23 14:32 NT-Pro-B Natriuret Pep 555 pg/mL (0-125) H 06/04/23 14:32 Total Protein 6.9 g/dL (6.6-8.7) 06/04/23 14:32 Albumin 4.2 g/dL (3.5-5.2) 06/04/23 14:32 Globulin 2.7 g/dL (1.3-4.6) 06/04/23 14:32 Influenza Type A Ag negative (Negative) 06/04/23 14:53 Influenza Type B Ag negative (Negative) 06/04/23 14:53 SARS-CoV-2 Ag (Rapid) negative (Negative) 06/04/23 14:53 All radiology interpretation(s) finalized by discharge ED provider radiology interpretation(s): FINDINGS: Lungs: There are some granulomatous calcific related changes present. There is minimal subsegmental atelectasis versus post inflammatory scarring demonstrated of the lung bases.No interval lobar consolidation is appreciated. Pleural spaces: No pneumothorax or pleural effusion is appreciated. Heart/Mediastinum: The cardiomediastinal silhouette is upper normal in size.This can be seen with central averaging as well as hollis enlargement.No cardiac decompensation is appreciated. Diaphragm: The hemidiaphragms are symmetric. Bones/joints: Osseous alignment is maintained.No interval displaced fracture or dislocation is appreciated. Soft tissues: No radiopaque foreign body or subcutaneous emphysema is appreciated. Other findings: There is some mild chronic air trapping appearance overall. XR/XR chest 1V portable [id number] IMPRESSION: No lobar consolidation is appreciated.No interval acute cardiopulmonary changes are appreciated. Discharge Plan Discharge Patient Disposition: Home Clinical Impression: Hypoxemia, Acute exacerbation of chronic obstructive pulmonary disease (COPD) Condition: Stable Prescriptions: No Action apixaban 5 mg tablet 5 mg PO BID@0800,2000 albuterol sulfate [ProAir HFA] 90 mcg/actuation HFA aerosol inhaler 1 inh inhalation QID PRN (Reason: Shortness Of Breath) budesonide 0.5 mg/2 mL suspension for nebulization 0.5 mg inhalation BID Qty: 120 6RF prednisolone 5 mg tablet 5 mg PO DAILY Qty: 30 3RF furosemide [Lasix] 20 mg tablet 20 mg PO DAILY Qty: 60 3RF arformoterol 15 mcg/2 mL solution for nebulization 2 ml inhalation BID Qty: 120 6RF Spiriva Respimat 1.25 mcg/actuation mist 2 puff inhalation DAILY Qty: 4 6RF cholecalciferol (vitamin D3) [Vitamin D3] 25 mcg (1,000 unit) Capsule 25 mcg PO DAILY Qty: 0 potassium chloride 20 mEq Tablet Extended Release 10 meq PO DAILY diltiazem HCl 180 mg capsule,extended release 24hr 180 mg PO DAILY levetiracetam 500 mg Tablet 500 mg PO BID rosuvastatin 40 mg Tablet 40 mg PO .EVENING guaifenesin [Mucinex] 600 mg tablet extended release 12hr 600 mg PO BID PRN (Reason: Congestion) Discharge Orders: Discharge ED (Routine); Ordered 06/04/23 Ordered By: Darren Miller Referrals: Jackie Kulkarni MD [Primary Care Provider] - Discharge Diet: Advance as tolerated Discharge Activity: Resume usual activity Patient Instructions: Opioid Safety, Pain Management Activity Restrictions/Additional Instructions: Activity Restrictions/Additional Instructions: Thank you for choosing [facility] for your healthcare needs today. Please realize that you were seen in the Emergency Department and that we are providing you with an emergency medical screening exam and this may not be complete and all inclusive of all the testing and or medical work-up that you may need to determine your ailment or severity of your illness. It is very important that you follow-up as instructed with your Primary care provider or Specialist for additional evaluation and to discuss your medical treatment plan. You may return to the Emergency Department should you have concerns or if your condition changes or worsens in any way. 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
[2023-06-04 14:11] VITALS: BP 168/78; PULSE 91; O2SAT 96
[2023-06-04 14:41] VITALS: PULSE 98; O2SAT 97
[2023-06-04 15:03] LABS: Basophils % 0.3 %; Eosinophils % 0.3 %; Hematocrit 43.7 % (37-53); Lymphocytes # 0.4 10^3/uL (0.8-4.8); Lymphocytes % 3.1 %; Mean Corpuscular HGB Conc 31.6 g/dL (30-55); Mean Corpuscular Volume 91.8 fl (82-101); Mean Platelet Volume 10.5 fL (7.4-10.4); Monocytes # 0.6 10^3/uL (0.2-0.9); Monocytes % 4.7 %; Neutrophils # 11.38 10^3/uL (1.8-7.7); Neutrophils % 90.9 %; Nucleated Red Blood Cells % 0 %; Platelet Count 206 10^3/cmm (157-399); Red Blood Count 4.76 10^6/uL (3.85-5.65); Red Cell Distribution Width 14.2 % (12.1-15.1); White Blood Count 12.53 10^3/uL (3.29-11.43)
[2023-06-04] MEDS: methylPREDNISolone sod succ 125 mg/2 mL INJ 60 MG IVP (15:10)
[2023-06-04 15:11] LABS: INR 1.33 (0.8-1.2)
[2023-06-04 15:15] LABS: SARS Covid-2 Antigen negative (Negative)
[2023-06-04 15:17] LABS: Influenza A by IFA negative (Negative); Influenza B by IFA negative (Negative)
[2023-06-04 15:21] LABS: Troponin(5th) Baseline 28 ng/L (0-15)
[2023-06-04 15:27] LABS: Alanine Aminotransferase 11 U/L (0-41); Albumin Level 4.2 g/dL (3.5-5.2); Alkaline Phosphatase 94 U/L (40-130); Anion Gap 19.5 (5-19); Aspartate Amino Transferase 15 U/L (0-40); Blood Urea Nitrogen 21 mg/dL (8-23); Calcium 9.4 mg/dL (8.5-10.5); Carbon Dioxide 26 mmol/L (22-29); Chloride 98 mmol/L (98-107); Globulin 2.7 g/dL (1.3-4.6); Glucose 146 mg/dL (65-115); Osmolality Calculated 294 mOsm/kg (285-295); Potassium 4.5 mmol/L (3.5-5.1); Sodium 139 mmol/L (136-145); Total Bilirubin 0.8 mg/dL (0.15-1.2); Total Protein 6.9 g/dL (6.6-8.7)
[2023-06-04 15:30] LABS: NT Pro B Type Natriuretic Pept 555 pg/mL (0-125)
== END 2023-06-04 16:15 | disposition home or self-care (01) ==
PROVIDERS: Emergency Provider Internal Medicine; PCP Family Medicine
DX: J44.1 Chronic obstructive pulmonary disease with (acute) exacerbation (principal); R09.02 Hypoxemia; Z11.52 Encounter for screening for COVID-19; Z87.891 Personal history of nicotine dependence; I10 Essential (primary) hypertension
CPT/HCPCS: 36415; 71045; 80053; 83880; 84484; 85025; 85610; 87426; 87804; 93005; 93010; 96374; 99285; J2930

== ENCOUNTER → 2023-08-02 10:55 | Outpatient (BNVA) | payer OTHER, SELFPAY | PROVIDERS: PCP Family Medicine; Visit Provider Internal Medicine Pulmonary Disease | DX: R91.1 Solitary pulmonary nodule (principal); G47.33 Obstructive sleep apnea (adult) (pediatric); Z87.891 Personal history of nicotine dependence; I10 Essential (primary) hypertension; I48.91 Unspecified atrial fibrillation; Z79.01 Long term (current) use of anticoagulants; I73.9 Peripheral vascular disease, unspecified; Z99.81 Dependence on supplemental oxygen; Z99.89 Dependence on other enabling machines and devices; J44.9 Chronic obstructive pulmonary disease, unspecified | CPT/HCPCS: 99214 ==

== ENCOUNTER 2023-08-15 14:56 | Emergency (ER) | payer OTHER, SELFPAY ==
--- NOTE | 2023-08-15 14:59 | XRR_ITS ---
PROCEDURE INFORMATION: Exam: XR Left Foot Exam date and time: 08/15/2023 3:16 PM Age: 73 years old Clinical indication: Pain; Foot; Left TECHNIQUE: Imaging protocol: Radiologic exam of the left foot. Views: 3 or more views. COMPARISON: [place] [id number] 09/07/2022 1:08 PM FINDINGS: Bones/joints: Mild bunion deformity. Healed fracture deformity of the distal shaft of the left 5th metatarsal. Slight chronic flattening of the distal articular surface of the left 2nd metatarsal head degenerative changes of the dorsum of the midfoot and minimal degenerative changes in the tibiotalar joint. No acute appearing fracture or dislocation is evident. Soft tissues: No radiodense foreign body identified in the soft tissues. XR/XR foot LT min 3V* [id number] IMPRESSION: 1. No definite acute fracture or dislocation identified. 2. Deformity of the 2nd metatarsal head suggesting Freiberg's infraction, favored chronic, but please correlate with clinical findings. 3. Healed fracture deformity of the left 5th metatarsal.
[2023-08-15 15:04] VITALS: BP 117/82; PULSE 72; RESP 16; TEMP 36.8; O2SAT 90; BMI 31.0
--- NOTE | 2023-08-15 15:27 | USR_ITS ---
PROCEDURE INFORMATION: Exam: US Duplex Left Lower Extremity Arteries Or Arterial Bypass Grafts Exam date and time: 08/15/2023 4:34 PM Age: 73 years old Clinical indication: Pain; Leg, lower; Left; Prior surgery; Surgery date: 6+ months; Surgery type: Arterial graft; Additional info: Delay cap refill, discoloration great toe; Diminished pulses TECHNIQUE: Imaging protocol: Left Real-time duplex scan of the arteries or arterial bypass grafts of the left lower extremity with 2-D munguia scale, color Doppler flow and spectral waveform analysis. Images documented and saved. COMPARISON: [place] [id number] 08/15/2023 4:10 PM FINDINGS: Left common femoral artery: No occlusion or significant stenosis. Normal waveform. Left superficial femoral artery: No occlusion or significant stenosis. Normal waveform. Left popliteal artery: No occlusion or significant stenosis. Normal waveform. Left calf/foot arteries: No occlusion or significant stenosis in the visualized arteries. Normal waveforms. Dorsalis pedis artery is patent. Other findings: The common femoral artery is patent but is aneurysmal measuring 3.4 cm in diameter. The bypass graft arising from the superficial femoral artery demonstrates normal arterial [place]. US/[place] [id number] IMPRESSION: Patent arterial graft of the left leg Aneurysmal [employer]PER[employer]OR [employer]
--- NOTE | 2023-08-15 15:27 | USR_ITS ---
PROCEDURE INFORMATION: Exam: US Duplex Left Lower Extremity Veins, Limited Exam date and time: 08/15/2023 4:10 PM Age: 73 years old Clinical indication: Pain; Leg, lower; Left; Prior surgery; Surgery date: 6+ months; Surgery type: Arterial grafts; Additional info: Edema/swelling TECHNIQUE: Imaging protocol: Real-time duplex ultrasound of the left extremity with 2-D munguia scale, color Doppler flow and spectral waveform analysis including responses to compression and other maneuvers (when performed) with image documentation. Limited exam focused on the left lower extremity veins. COMPARISON: CT angio [facility] [id number] 09/07/2022 1:08 PM FINDINGS: Left deep veins: Unremarkable. The common femoral, femoral, proximal profunda femoral and popliteal veins are patent without thrombus. Normal Doppler waveforms. Normal compressibility and/or augmentation response. Superficial veins: Unremarkable. Saphenofemoral junction is patent without thrombus. Soft tissues: Unremarkable. Other findings: There is evidence of thrombosis involving the popliteal vein and the thrombus extends into the calf veins. US/CV venous duplex [facility] [id number] IMPRESSION: Popliteal DVT of the left leg
[2023-08-15 15:28] VITALS: BP 120/85; PULSE 91; RESP 13; O2SAT 93
--- NOTE | 2023-08-15 15:28 | ED_ITS ---
Documented by User: BERKLEY Martinez 08/15/23 16:36 HPI - Extremity Problem 2 General: Chief complaint: Extremity Injury, Lower Stated complaint[facility] Time Seen by Provider: 08/15/23 15:16 Source: patient Mode of arrival: ambulatory Limitations: no limitations History of Present Illness: Patient is a 73-year-old male who presents to ED today with a complaint of swelling to the left foot as well as discoloration to the left great toe that he has noticed over the past 2 to 3 days. Patient states he has an extensive history of peripheral arterial disease and is reporting multiple lower extremity stents. States his right leg was stented by vascular in [place] 4-5 years ago and the left leg stented 2-3 years ago. History of chronic/heavy smoking but quit 2-3 yeas ago after left leg was stented. No other complaints at this time. No calf pain. Dyspnea but this is chronic due to COPD/on his normal amounts of oxygen. Associated symptoms: Deny chest pain or fever(s) Review of Systems 2 Const: Denies: fever(s), chills, body aches, fatigue or malaise Card: Denies: chest pain Resp: Reports: dyspnea (chronic-at baseline) GI: Denies: abdominal pain Musc: Reports: extremity swelling (L foot swelling); Denies: neck pain, back pain, joint pain, joint swelling, joint redness or joint warmth Skin/Breast: Reports: other (reporting discoloration to L great toe) Neuro: Denies: numbness in extremities, weakness in extremities, sensory changes or difficulty walking PFSH ED 2 PFSH: Medical History Peripheral arterial disease Benign essential HTN Iliac artery aneurysm, bilateral DA (obstructive sleep apnea) Hx of seizure disorder Depression Dyspnea on exertion Popliteal artery aneurysm Spinal stenosis Tinnitus Sleep apnea in adult A-fib COPD (chronic obstructive pulmonary disease) Surgical History History of PTCA S/P hernia repair incisional History of vascular surgery rt and left leg 2019 History of colonoscopy with polypectomy 2018 History of AAA (abdominal aortic aneurysm) repair 2010 History of left inguinal hernia repair 2016 Family History Mother Cancer Diabetes Father CAD (coronary artery disease) Cancer Chronic kidney disease (CKD) Diabetes Brother No problems noted. Sister No problems noted. Grandfather Lung disease Denies family history of Clotting disorder Dementia Suicide Anesthesia complication Bleeding disorder Stroke Social History Smoking and tobacco/nicotine status: former use of tobacco/nicotine Quit status (tobacco/nicotine): has quit using Year quit tobacco: May 2021 Former quit date comment: 2ppd X 50 Alcohol intake: never Substance/Drug Use: never Physical Exam 2 Const: COMMON NORMALS: no acute distress, average body habitus, patient oriented x3, no limitations, alert and well nourished GENERAL APPEARANCE: c ooperative OTHER: chronically ill appearing Resp: OTHER: satting normal on his normal 4L O2 Cardio: COMMON NORMALS: regular rate and regular rhythm RATE: regular rate RHYTHM: regular rhythm Extremity: NARRATIVE EXTREMITY EXAM: bilateral LE with changes consistent with severe PAD; cap refill is delayed bilaterally but worse on L; bilateral lower extremities are cool to the touch; pulses palpable on R and less so on the L; he does have some scant duskiness to the L great toe present; no calf pain/swelling; has some mild edema to dorsum of L foot GENERAL: Yes normal exam except as noted Neuro: COMMON NORMALS: patient oriented x3, moves all extremities, no focal motor deficits and no sensory deficits noted SENSORIUM/ORIENTATION: Yes alert Course 2 Vital Signs: Vital signs: Vital Signs Temperature 98.2 F 08/15/23 15:04 Pulse Rate 88 08/15/23 18:50 Respiratory Rate 13 08/15/23 15:28 Blood Pressure 140/95 08/15/23 22:06 Pulse Oximetry 98 08/15/23 22:06 Oxygen Delivery Me thod Nasal Cannula 08/15/23 22:06 Oxygen Flow Rate 4 08/15/23 22:06 MDM - Extremity (Nontraumatic) Lab Data 08/15/23 17:03 08/15/23 17:03 Radiology Impressions Foot X-Ray 08/15/23 14:59 IMPRESSION: 1. No definite acute fracture or dislocation identified. 2. Deformity of the 2nd metatarsal head suggesting Freiberg's infraction, favored chronic, but please correlate with clinical findings. 3. Healed fracture deformity of the left 5th metatarsal. 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 The exam findings were verbally communicated by me to Laury Hunter via telephone conference at 5:26 PM MANAGER OF FINANCE on 08/15/2023. The findings were acknowledged and understood. Aorta w/Runoff CTA 08/15/23 16:31 IMPRESSION: 1. Widely patent bilateral femoropopliteal bypass grafts 2. Intact abdominal aortic stent graft 3. Good flow to both feet Laboratory Results WBC 10.79 10^3/uL (3.29-11.43) 08/15/23 17:03 RBC 4.76 10^6/uL (3.85-5.65) 08/15/23 17:03 Hgb 13.50 g/dL (11.27-16.99) 08/15/23 17:03 Hct 43.0 % (37-53) 08/15/23 17:03 MCV 90.3 fl (82-101) 08/15/23 17:03 MCH 28.4 pg (27-33) 08/15/23 17:03 MCHC 31.4 g/dL (30-55) 08/15/23 17:03 RDW 15.1 % (12.1-15.1) 08/15/23 17:03 Plt Count 178 10^3/cmm (157-399) 08/15/23 17:03 MPV 9.3 fL (7.4-10.4) 08/15/23 17:03 Neut % (Auto) 80.7 % 08/15/23 17:03 Lymph % (Auto) 10.7 % 08/15/23 17:03 Mclennan % (Auto) 6.6 % 08/15/23 17:03 Eos % (Auto) 0.9 % 08/15/23 17:03 Baso % (Auto) 0.6 % 08/15/23 17:03 Neut # (Auto) 8.71 10^3/uL (1.8-7.7) H 08/15/23 17:03 Lymph # (Auto) 1.2 10^3/uL (0.8-4.8) 08/15/23 17:03 Mclennan # (Auto) 0.7 10^3/uL (0.2-0.9) 08/15/23 17:03 Eos # (Auto) 0.1 10^3/uL (0.0-0.8) 08/15/23 17:03 Baso # (Auto) 0.1 10^3/uL (0.0-0.1) 08/15/23 17:03 Nucleated RBC % (auto) 0 % 08/15/23 17:03 Nucleated RBCs # 0.0 /100WBC 08/15/23 17:03 Sodium 140 mmol/L (136-145) 08/15/23 17:03 Potassium 4.1 mmol/L (3.5-5.1) 08/15/23 17:03 Chloride 99 mmol/L (98-107) 08/15/23 17:03 Carbon Dioxide 32 mmol/L (22-29) H 08/15/23 17:03 Anion Gap 13.1 (5-19) 08/15/23 17:03 BUN 14 mg/dL (8-23) 08/15/23 17:03 Creatinine 0.7 mg/dL (0.7-1.2) 08/15/23 17:03 GFR Calculation Not Reportable 08/15/23 17:03 Glucose 109 mg/dL (65-115) 08/15/23 17:03 Calculated Osmolality 291 mOsm/kg (285-295) 08/15/23 17:03 Calcium 9.5 mg/dL (8.5-10.5) 08/15/23 17:03 Total Bilirubin 1.1 mg/dL (0.15-1.2) 08/15/23 17:03 AST 14 U/L (0-40) 08/15/23 17:03 ALT 11 U/L (0-41) 08/15/23 17:03 Alkaline Phosphatase 63 U/L (40-130) 08/15/23 17:03 Total Protein 7.2 g/dL (6.6-8.7) 08/15/23 17:03 Albumin 4.3 g/dL (3.5-5.2) 08/15/23 17:03 Globulin 2.9 g/dL (1.3-4.6) 08/15/23 17:03 Discharge Plan Discharge Patient Disposition: Home Clinical Impression: Peripheral arterial disease Acute deep vein thrombosis (DVT) of popliteal vein Qualifiers: Laterality: left Qualified Code(s): I82.432 - Acute embolism and thrombosis of left popliteal vein Condition: Stable Prescriptions: New hydrocodone-acetaminophen 5-325 mg tablet 1 tab PO Q6H PRN (Reason: pain) Qty: 14 0RF No Action apixaban 5 mg tablet 5 mg PO BID@0800,2000 albuterol sulfate [ProAir HFA] 90 mcg/actuation HFA aerosol inhaler 1 inh inhalation QID PRN (Reason: Shortness Of Breath) arformoterol 15 mcg/2 mL solution for nebulization 2 ml inhalation BID Qty: 120 6RF budesonide 0.5 mg/2 mL suspension for nebulization 0.5 mg inhalation BID Qty: 120 6RF Spiriva Respimat 1.25 mcg/actuation mist 2 puff inhalation DAILY Qty: 4 6RF guaifenesin [Mucinex] 600 mg tablet extended release 12hr 600 mg PO BID PRN (Reason: congestion) Qty: 60 6RF prednisolone 5 mg tablet 5 mg PO DAILY Qty: 30 3RF furosemide [Lasix] 20 mg tablet 20 mg PO DAILY Qty: 60 3RF cholecalciferol (vitamin D3) [Vitamin D3] 25 mcg (1,000 unit) Capsule 25 mcg PO DAILY Qty: 0 potassium chloride 20 mEq Tablet Extended Release 10 meq PO DAILY diltiazem HCl 180 mg capsule,extended release 24hr 180 mg PO DAILY levetiracetam 500 mg Tablet 500 mg PO BID rosuvastatin 40 mg Tablet 40 mg PO .EVENING Discharge Orders: Discharge ED (Routine); Ordered 08/16/23 Ordered By: Savanna Jarquin Referrals: Jackie Kulkarni MD [Primary Care Provider] - Discharge Diet: Usual diet Discharge Activity: Increase activity as tolerated Patient Instructions: Peripheral Vascular Disease (ED) Activity Restrictions/Additional Instructions: Overall, your lab work was stable. The ultrasound of the veins revealed a new blood clot behind your left knee. Ultrasound of the arteries revealed what appeared to be a stable aneurysm already noted in previous examinations of your common femoral artery. Based off of radiology recommendations we proceeded with a CTA to further evaluate the more specifics of the blood flow through your arteries into your lower extremities. It does appear that all of your grafting is still patent allowing for blood flow however, flow through the arteries is extremely slowed and was difficult to catch on the exam. Given your most recent surgery was performed by Dr. Hiram Verduzco, I called up to [facility] in [place] and was able to speak with him directly regarding your presentation here in the emergency department today. We discussed your lab work and both your ultrasound and CTA imaging from today. He indicated that with the grafts being patent, he did not think surgically there was anything he could do to intervene to improve your symptoms today. He indicated that there is progression of your severe peripheral vascular disease and that unfortunately, even your evaluation a year or so ago prior to your last surgery, he indicated they would be very little surgically that could be done in the future due to the progression already in motion. He mentioned an appointment you have with his office however, I am not sure how far out that is. It may be beneficial to move your appointment up to have a more in-depth conversation with him regarding the expected clinical course from this point. In the meantime, he does asked that you have a follow-up appointment with [facility] to continue monitoring your feet and to continue to evaluate the skin of your lower extremities. We need to be cognizant to look for signs of ulceration of the skin which may develop. He also encourages you to be sure to keep your toes and distal extremities warm to help encourage opening of the distal arteries and encourage continued perfusion. Dr. Mancera-the emergency room physician here [facility] has prescribed you some medication to help with pain. Unfortunately, decreased blood flow and decreased oxygen to structures such as muscles can cause increasing pain. Dr. Hyman also encourages you to continue taking your Eliquis as prescribed to both help keep grafts patent and open and to treat this new finding of left popliteal vein DVT. If you have sudden swelling of the lower leg, significant white/munguia/black discoloration of the foot, fever, develop ulcerations of the skin, develop fevers, or have any chest pain you need to return to the emergency department. Sign Out Sign Out Data: Patient Sign Out occurred on 08/15/23 at 17:21. Patient's care was discussed, and care was transferred from BERKLEY Martinez to BERKLEY Silverio. 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[employer] Documented by User: BERKLEY Silverio 08/16/23 00:52 HPI - Extremity Problem 2 General: Chief complaint: Extremity Injury, Lower Stated complaint: [facility], [facility] foot pain Time Seen by Provider: 08/15/23 15:16 PFSH ED 2 PFSH: Medical History Peripheral arterial disease Benign essential HTN Iliac artery aneurysm, bilateral DA (obstructive sleep apnea) Hx of seizure disorder Depression Dyspnea on exertion Popliteal artery aneurysm Spinal stenosis Tinnitus Sleep apnea in adult A-fib COPD (chronic obstructive pulmonary disease) Surgical History History of PTCA S/P hernia repair incisional History of vascular surgery rt and left leg 2019 History of colonoscopy with polypectomy 2018 History of AAA (abdominal aortic aneurysm) repair 2010 History of left inguinal hernia repair 2016 Family History Mother Cancer Diabetes Father CAD (coronary artery disease) Cancer Chronic kidney disease (CKD) Diabetes Brother No problems noted. Sister No problems noted. Grandfather Lung disease Denies family history of Clotting disorder Dementia Suicide Anesthesia complication Bleeding disorder Stroke Social History Smoking and tobacco/nicotine status: former use of tobacco/nicotine Quit status (tobacco/nicotine): has quit using Year quit tobacco: May 2021 Former quit date comment: 2ppd X 50 Alcohol intake: never Substance/Drug Use: never Course 2 Vital Signs: Vital signs: Vital Signs Temperature 98.2 F 08/15/23 15:04 Pulse Rate 88 08/15/23 18:50 Respiratory Rate 13 08/15/23 15:28 Blood Pressure 140/95 08/15/23 22:06 Pulse Oximetry 98 08/15/23 22:06 Oxygen Delivery Me thod Nasal Cannula 08/15/23 22:06 Oxygen Flow Rate 4 08/15/23 22:06 MDM - Extremity (Nontraumatic) Medical Decision Making Savanna Jarquin PA-C: Transfer of care from Laury Hunter PA-C at 1700. Laury discussed the patient's presenting symptoms and known history of vascular disease. Patient had ultrasound ordered and was still waiting for final results on the arterial read. At the time of handoff, I was called by Dr. Connors, the reading radiologist to make me aware of the positive findings for DVT in the left popliteal vein extending into the calf veins. 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 Chart review shows mention of a femoral aneurysm as far back as 2020. I did speak with the patient at bedside who further indicated that approximately 3 years ago he had grafting on his left leg at the [facility] in [place]. He is unsure of the doctor. However, he used Dr Joseph at [facility] 2 years ago for stenting on his right leg. He confirms he is still taking Eliquis twice a day. Dr. Mancera has been consulted for second opinion regarding this case. 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 Given that the patient has had extensive surgery and has a significant chronic history of peripheral vascular disease I did page out to Dr. Hyman with [facility] to discuss the case. I was able to speak with him regarding the patient's presenting symptoms and imaging from today. Unfortunately, has the grafts are patent, he indicated there is nothing surgical which she would be able to do for the patient. He indicated that this is most likely all progression of the patient's chronic peripheral vascular disease. He mentioned that the patient should have a follow-up appointment with his office at some point already scheduled as he believes he is keeping up with this patient still. Otherwise, he recommended patient be seen and evaluated back at the [facility] for continued monitoring. Patient was given a short course of pain medication as patient may begin developing more pain and discomfort. He is to continue taking his Eliquis as prescribed. I did discuss all this with the patient and his . Had very long discussion about following up with vascular either at his previously scheduled appointment or, calling to move the appointment up to discuss the likely progression of his peripheral vascular disease from this point and to discuss how to proceed. However, patient was given return precautions to the emergency department for signs of developing necrosis or gangrene, new onset fever, chest pains or acute shortness of breath. Differential Diagnosis Likely lower extremity edema and deep vein thrombosis of lower extremity; Unlikely herpes zoster, gout, cellulitis or superficial thrombophlebitis Lab Data 08/15/23 17:03 08/15/23 17:03 Radiology Impressions Foot X-Ray 08/15/23 14:59 IMPRESSION: 1. No definite acute fracture or dislocation identified. 2. Deformity of the 2nd metatarsal head suggesting Freiberg's infraction, favored chronic, but please correlate with clinical findings. 3. Healed fracture deformity of the left 5th metatarsal. 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 The exam findings were verbally communicated by me to Laury Hunter via telephone conference at 5:26 PM MANAGER OF FINANCE on 08/15/2023. The findings were acknowledged and understood. Aorta w/Runoff CTA 08/15/23 16:31 IMPRESSION: 1. Widely patent bilateral femoropopliteal bypass grafts 2. Intact abdominal aortic stent graft 3. Good flow to both feet Laboratory Results WBC 10.79 10^3/uL (3.29-11.43) 08/15/23 17:03 RBC 4.76 10^6/uL (3.85-5.65) 08/15/23 17:03 Hgb 13.50 g/dL (11.27-16.99) 08/15/23 17:03 Hct 43.0 % (37-53) 08/15/23 17:03 MCV 90.3 fl (82-101) 08/15/23 17:03 MCH 28.4 pg (27-33) 08/15/23 17:03 MCHC 31.4 g/dL (30-55) 08/15/23 17:03 RDW 15.1 % (12.1-15.1) 08/15/23 17:03 Plt Count 178 10^3/cmm (157-399) 08/15/23 17:03 MPV 9.3 fL (7.4-10.4) 08/15/23 17:03 Neut % (Auto) 80.7 % 08/15/23 17:03 Lymph % (Auto) 10.7 % 08/15/23 17:03 Mclennan % (Auto) 6.6 % 08/15/23 17:03 Eos % (Auto) 0.9 % 08/15/23 17:03 Baso % (Auto) 0.6 % 08/15/23 17:03 Neut # (Auto) 8.71 10^3/uL (1.8-7.7) H 08/15/23 17:03 Lymph # (Auto) 1.2 10^3/uL (0.8-4.8) 08/15/23 17:03 Mclennan # (Auto) 0.7 10^3/uL (0.2-0.9) 08/15/23 17:03 Eos # (Auto) 0.1 10^3/uL (0.0-0.8) 08/15/23 17:03 Baso # (Auto) 0.1 10^3/uL (0.0-0.1) 08/15/23 17:03 Nucleated RBC % (auto) 0 % 08/15/23 17:03 Nucleated RBCs # 0.0 /100WBC 08/15/23 17:03 Sodium 140 mmol/L (136-145) 08/15/23 17:03 Potassium 4.1 mmol/L (3.5-5.1) 08/15/23 17:03 Chloride 99 mmol/L (98-107) 08/15/23 17:03 Carbon Dioxide 32 mmol/L (22-29) H 08/15/23 17:03 Anion Gap 13.1 (5-19) 08/15/23 17:03 BUN 14 mg/dL (8-23) 08/15/23 17:03 Creatinine 0.7 mg/dL (0.7-1.2) 08/15/23 17:03 GFR Calculation Not Reportable 08/15/23 17:03 Glucose 109 mg/dL (65-115) 08/15/23 17:03 Calculated Osmolality 291 mOsm/kg (285-295) 08/15/23 17:03 Calcium 9.5 mg/dL (8.5-10.5) 08/15/23 17:03 Total Bilirubin 1.1 mg/dL (0.15-1.2) 08/15/23 17:03 AST 14 U/L (0-40) 08/15/23 17:03 ALT 11 U/L (0-41) 08/15/23 17:03 Alkaline Phosphatase 63 U/L (40-130) 08/15/23 17:03 Total Protein 7.2 g/dL (6.6-8.7) 08/15/23 17:03 Albumin 4.3 g/dL (3.5-5.2) 08/15/23 17:03 Globulin 2.9 g/dL (1.3-4.6) 08/15/23 17:03 All radiology interpretation(s) finalized by discharge Discharge Plan Discharge Patient Disposition: Home Clinical Impression: Peripheral arterial disease Acute deep vein thrombosis (DVT) of popliteal vein Qualifiers: Laterality: left Qualified Code(s): I82.432 - Acute embolism and thrombosis of left popliteal vein Condition: Stable Prescriptions: New hydrocodone-acetaminophen 5-325 mg tablet 1 tab PO Q6H PRN (Reason: pain) Qty: 14 0RF No Action apixaban 5 mg tablet 5 mg PO BID@0800,2000 albuterol sulfate [ProAir HFA] 90 mcg/actuation HFA aerosol inhaler 1 inh inhalation QID PRN (Reason: Shortness Of Breath) arformoterol 15 mcg/2 mL solution for nebulization 2 ml inhalation BID Qty: 120 6RF budesonide 0.5 mg/2 mL suspension for nebulization 0.5 mg inhalation BID Qty: 120 6RF Spiriva Respimat 1.25 mcg/actuation mist 2 puff inhalation DAILY Qty: 4 6RF guaifenesin [Mucinex] 600 mg tablet extended release 12hr 600 mg PO BID PRN (Reason: congestion) Qty: 60 6RF prednisolone 5 mg tablet 5 mg PO DAILY Qty: 30 3RF furosemide [Lasix] 20 mg tablet 20 mg PO DAILY Qty: 60 3RF cholecalciferol (vitamin D3) [Vitamin D3] 25 mcg (1,000 unit) Capsule 25 mcg PO DAILY Qty: 0 potassium chloride 20 mEq Tablet Extended Release 10 meq PO DAILY diltiazem HCl 180 mg capsule,extended release 24hr 180 mg PO DAILY levetiracetam 500 mg Tablet 500 mg PO BID rosuvastatin 40 mg Tablet 40 mg PO .EVENING Discharge Orders: Discharge ED (Routine); Ordered 08/16/23 Ordered By: Savanna Jarquin Referrals: Jackie Kulkarni MD [Primary Care Provider] - Discharge Diet: Usual diet Discharge Activity: Increase activity as tolerated Patient Instructions: Peripheral Vascular Disease (ED) Activity Restrictions/Additional Instructions: Overall, your lab work was stable. The ultrasound of the veins revealed a new blood clot behind your left knee. Ultrasound of the arteries revealed what appeared to be a stable aneurysm already noted in previous examinations of your common femoral artery. Based off of radiology recommendations we proceeded with a CTA to further evaluate the more specifics of the blood flow through your arteries into your lower extremities. It does appear that all of your grafting is still patent allowing for blood flow however, flow through the arteries is extremely slowed and was difficult to catch on the exam. Given your most recent surgery was performed by Dr. Hiram Verduzco, I called up to [facility] in [place] and was able to speak with him directly regarding your presentation here in the emergency department today. We discussed your lab work and both your ultrasound and CTA imaging from today. He indicated that with the grafts being patent, he did not think surgically there was anything he could do to intervene to improve your symptoms today. He indicated that there is progression of your severe peripheral vascular disease and that unfortunately, even your evaluation a year or so ago prior to your last surgery, he indicated they would be very little surgically that could be done in the future due to the progression already in motion. He mentioned an appointment you have with his office however, I am not sure how far out that is. It may be beneficial to move your appointment up to have a more in-depth conversation with him regarding the expected clinical course from this point. In the meantime, he does asked that you have a follow-up appointment with [facility] to continue monitoring your feet and to continue to evaluate the skin of your lower extremities. We need to be cognizant to look for signs of ulceration of the skin which may develop. He also encourages you to be sure to keep your toes and distal extremities warm to help encourage opening of the distal arteries and encourage continued perfusion. Dr. Mancera-the emergency room physician here [facility] has prescribed you some medication to help with pain. Unfortunately, decreased blood flow and decreased oxygen to structures such as muscles can cause increasing pain. Dr. Hyman also encourages you to continue taking your Eliquis as prescribed to both help keep grafts patent and open and to treat this new finding of left popliteal vein DVT. If you have sudden swelling of the lower leg, significant white/munguia/black discoloration of the foot, fever, develop ulcerations of the skin, develop fevers, or have any chest pain you need to return to the emergency department. Sign Out Sign Out Data: Patient Sign Out occurred on 08/15/23 at 17:21. Patient's care was discussed, and care was transferred from BERKLEY Martinez to BERKLEY Silverio. 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
--- NOTE | 2023-08-15 16:31 | CTR_ITS ---
PROCEDURE INFORMATION: Exam: CTA Abdominal Aorta and Bilateral Lower Extremities (Run-off) With Contrast Exam date and time: 08/15/2023 6:38 PM Age: 73 years old Clinical indication: Foot pain; Left; Prior surgery; Surgery date: 6+ months; Surgery type: Multi stent placements; Additional info: US showing poss common fem aneurysm? Dec cap refill/pulses, HX of arterial stents/grafting? TECHNIQUE: Imaging protocol: Computed tomographic angiography of the of the abdominal aorta, pelvis and bilateral lower extremities with contrast. 3D rendering (Not supervised by radiologist): MIP and/or 3D reconstructed images were created by the technologist. Radiation optimization: All CT scans at this facility use at least one of these dose optimization techniques: automated exposure control; mA and/or kV adjustment per patient size (includes targeted exams where dose is matched to clinical indication); or iterative reconstruction. Contrast material: OMNI 350; Contrast volume: 150 ml; Contrast route: INTRAVENOUS (IV); COMPARISON: [place] [id number] 09/07/2022 1:08 PM RADIATION DOSE METRICS: Total DLP (mGy-cm): 1079 FINDINGS: Aorta: There is a widely patent aortic stent graft in good position. No evidence of aortic endoleak. There is a patent bypass graft extending from the left common iliac artery to the left internal iliac artery. There are patent right iliac artery stents. Celiac trunk and mesenteric arteries: No occlusion or significant stenosis. Renal arteries: No occlusion or significant stenosis. Right iliac arteries: See Aorta finding. Right femoral/popliteal arteries: No occlusion or significant stenosis. Right infrapopliteal arteries: No occlusion or significant stenosis. Left iliac arteries: See Aorta finding. Left femoral/popliteal arteries: Thrombosed aneurysms involve the left SFA and popliteal artery. The left METAL SANDER is mildly prominent with a diameter of 2.2 cm. Left infrapopliteal arteries: No occlusion or significant stenosis. Other arteries: The right leg demonstrates a widely patent femoropopliteal bypass graft. The left leg demonstrates a widely patent femoropopliteal bypass graft. Liver: No mass. Gallbladder and bile ducts: Unremarkable. No calcified stones. No ductal dilation. Pancreas: Unremarkable. No mass. No ductal dilation. Spleen: Normal. No splenomegaly. Adrenal glands: Normal. No mass. Kidneys and ureters: Normal. No mass. Stomach and bowel: Unremarkable. No obstruction. No mucosal thickening. Appendix: No evidence of appendicitis. Urinary bladder: Unremarkable. No mass. Reproductive: Unremarkable as visualized. Intraperitoneal space: Unremarkable. No free air. No significant fluid collection. Lymph nodes: No lymphadenopathy. Bones/joints: No acute fracture. No dislocation. Soft tissues: Unremarkable. CT/CT angio abd aorta runof [id number] IMPRESSION: 1. Widely patent bilateral femoropopliteal bypass grafts 2. Intact abdominal aortic stent graft 3. Good flow to both feet
[2023-08-15 17:08] LABS: Basophils # 0.1 10^3/uL (0.0-0.1); Basophils % 0.6 %; Eosinophils # 0.1 10^3/uL (0.0-0.8); Eosinophils % 0.9 %; Lymphocytes # 1.2 10^3/uL (0.8-4.8); Lymphocytes % 10.7 %; Mean Corpuscular HGB Conc 31.4 g/dL (30-55); Mean Corpuscular Hemoglobin 28.4 pg (27-33); Mean Corpuscular Volume 90.3 fl (82-101); Mean Platelet Volume 9.3 fL (7.4-10.4); Monocytes # 0.7 10^3/uL (0.2-0.9); Monocytes % 6.6 %; Neutrophils # 8.71 10^3/uL (1.8-7.7); Neutrophils % 80.7 %; Nucleated Red Blood Cells % 0 %; Platelet Count 178 10^3/cmm (157-399); Red Blood Count 4.76 10^6/uL (3.85-5.65); Red Cell Distribution Width 15.1 % (12.1-15.1); White Blood Count 10.79 10^3/uL (3.29-11.43)
[2023-08-15 17:25] LABS: Alanine Aminotransferase 11 U/L (0-41); Albumin Level 4.3 g/dL (3.5-5.2); Alkaline Phosphatase 63 U/L (40-130); Anion Gap 13.1 (5-19); Aspartate Amino Transferase 14 U/L (0-40); Blood Urea Nitrogen 14 mg/dL (8-23); Calcium 9.5 mg/dL (8.5-10.5); Carbon Dioxide 32 mmol/L (22-29); Chloride 99 mmol/L (98-107); Creatinine Clr Calc Pharmacy 93.6623; Globulin 2.9 g/dL (1.3-4.6); Glucose 109 mg/dL (65-115); Osmolality Calculated 291 mOsm/kg (285-295); Potassium 4.1 mmol/L (3.5-5.1); Sodium 140 mmol/L (136-145); Total Bilirubin 1.1 mg/dL (0.15-1.2); Total Protein 7.2 g/dL (6.6-8.7)
[2023-08-15] MEDS: iohexol 350 mg/mL 500 mL Btl (per mL) IV (18:44)
[2023-08-15 18:50] VITALS: BP 155/90; PULSE 88; O2SAT 99
--- NOTE | 2023-08-15 18:58 | PC.NURSE ---
sports writer assumed care of pt at 1858, report from Ly BOSE
[2023-08-15 21:12] VITALS: O2SAT 99
[2023-08-15 21:15] VITALS: BP 129/96
[2023-08-15 22:06] VITALS: BP 140/95; O2SAT 98
[2023-08-16 01:06] VITALS: BP 109/83; RESP 18
== END 2023-08-16 01:19 | disposition home or self-care (01) ==
PROVIDERS: Physician Assistant; Emergency Provider Physician Assistant; PCP Family Medicine
DX: I82.432 Acute embolism and thrombosis of left popliteal vein (principal); I73.9 Peripheral vascular disease, unspecified; Z87.891 Personal history of nicotine dependence; I10 Essential (primary) hypertension; J44.9 Chronic obstructive pulmonary disease, unspecified
CPT/HCPCS: 73630; 75635; 80053; 85025; 93926; 93971; 99285; Q9967

== ENCOUNTER → 2023-08-30 09:57 | Outpatient (BNVA) | payer OTHER, SELFPAY | PROVIDERS: PCP Family Medicine; Visit Provider Internal Medicine Cardiovascular Disease | DX: I82.432 Acute embolism and thrombosis of left popliteal vein (principal); I48.19 Other persistent atrial fibrillation; I74.2 Embolism and thrombosis of arteries of the upper extremities; I72.3 Aneurysm of iliac artery; I71.21 Aneurysm of the ascending aorta, without rupture; J42 Unspecified chronic bronchitis; I27.20 Pulmonary hypertension, unspecified; Z87.891 Personal history of nicotine dependence; Z79.01 Long term (current) use of anticoagulants | CPT/HCPCS: 36415; 80048; 83880; 99214 ==

== ENCOUNTER → 2023-10-17 11:09 | Outpatient (BNVA) | payer OTHER, SELFPAY | PROVIDERS: PCP Family Medicine; Visit Provider Nurse Practitioner Family | DX: I50.9 Heart failure, unspecified (principal); R06.00 Dyspnea, unspecified; I48.19 Other persistent atrial fibrillation; I10 Essential (primary) hypertension; R06.02 Shortness of breath; I48.91 Unspecified atrial fibrillation; R94.31 Abnormal electrocardiogram [ECG] [EKG] | CPT/HCPCS: 36415; 71046; 80048; 83880; 93005; 99214 ==

== ENCOUNTER → 2023-10-20 09:26 | Outpatient (BNVA) | payer OTHER, SELFPAY | PROVIDERS: PCP Family Medicine; Visit Provider Internal Medicine Pulmonary Disease | DX: I48.91 Unspecified atrial fibrillation (principal) | CPT/HCPCS: 93005 ==

== ENCOUNTER 2023-10-20 09:48 | Inpatient (IN) | payer OTHER, MEDICARE, SELFPAY ==
[2023-10-20] VITALS (16 sets, daily range): BP systolic 108–144; BP diastolic 75–91; PULSE 70–112; RESP 16–30; TEMP 36.6–37; O2SAT 90–97; BMI 28.6
--- NOTE | 2023-10-20 09:59 | XR_ITS ---
WS: [id number] Portable AP upright chest, 10/20/2023 Clinical Data: chest pain Comparison: Two-view chest, 10/17/2023 Findings: No nodules, masses or effusions are seen. The heart is normal. The pulmonary vascularity is not increased. No pneumonia or pneumothorax is seen. The aortic arch and descending thoracic aorta s how mild tortuosity and calcification. There are old right rib fractures. Monitor leads are on the ch est wall. Impression: Atherosclerosis.
--- NOTE | 2023-10-20 10:04 | ECG_ITS ---
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 Measurements Intervals [place] Rate: 110 P: 0 CA: 0 QRS: 69 QRSD: 97 T: 18 QT: 310 QTc: 420 Interpretive Statements ATRIAL FIBRILLATION WITH RAPID VENTRICULAR RESPONSE NONSPECIFIC ST & T-WAVE ABNORMALITY Compared to ECG 10/17/2023 11:21:52 T-wave abnormality now present Atrial abnormality no longer present Electronically Signed On 10-20-2023 17:00:36 CDT by Casa Baig M.D. [id number]
[2023-10-20 10:09] LABS: Basophils # 0.1 10^3/uL (0.0-0.1); Basophils % 0.4 %; Eosinophils # 0.2 10^3/uL (0.0-0.8); Eosinophils % 1.7 %; Hematocrit 44.7 % (37-53); Lymphocytes # 0.6 10^3/uL (0.8-4.8); Lymphocytes % 4.5 %; Mean Corpuscular HGB Conc 30.9 g/dL (30-55); Mean Corpuscular Hemoglobin 29.5 pg (27-33); Mean Corpuscular Volume 95.5 fl (82-101); Mean Platelet Volume 10.1 fL (7.4-10.4); Monocytes # 0.8 10^3/uL (0.2-0.9); Monocytes % 5.5 %; Neutrophils # 12.16 10^3/uL (1.8-7.7); Neutrophils % 87.3 %; Nucleated Red Blood Cells % 0 %; Platelet Count 214 10^3/cmm (157-399); Red Blood Count 4.68 10^6/uL (3.85-5.65); Red Cell Distribution Width 15.3 % (12.1-15.1); White Blood Count 13.93 10^3/uL (3.29-11.43)
--- NOTE | 2023-10-20 10:09 | ED_ITS ---
Documented by User: BERKLEY Martinez 10/20/23 12:50 HPI - SOB/Dyspnea 2 General: Chief Complaint: Shortness of Breath/Dyspnea Stated Complaint: SOB, sent by heart care Time Seen by Provider: 10/20/23 09:58 Source: patient Mode of arrival: ambulatory Limitations: no limitations History of Present Illness: HPI Narrative: Patient is a 73-year-old male with a history of atrial fibrillation on apixaban, COPD with extensive past smoking history normally on 4 L O2, seizure disorder, hypertension, iliac artery aneurysm/PAD, DA, lung nodule here after he was sent from cardiology/pulmonology for A-fib with RVR and COPD exacerbation. Patient recently saw cardiology on 10/16 and was found to be in A-fib with RVR. They added metoprolol however patient was unaware of this medication change and had not been taking it. He saw Dr. Templeton today and was found to be satting 85% on his normal 4 L and in A-fib with RVR thus sent to the emergency department. Patient is on many meds/nebs for his COPD at home. Reports green sputum/increased cough recently. MD elicited complaint: shortness of breath Pertinent past history: COPD Onset (ago): day(s) Timing: constant Severity: moderate Exacerbating factors: exertion Relieving factors: nothing Known history of: COPD Associated symptoms: Deny abdominal pain, chest pain, extremity pain, fever(s), lightheadedness, nausea, palpitations, syncope or vomiting Related Data: Home oxygen amount: 4 liters Review of Systems 2 Const: Denies: fever(s), chills, body aches, fatigue or malaise Card: Reports: irregular heart rhythm and dyspnea on exertion; Denies: chest pain, palpitations, edema, swelling of feet/ankles, lightheadedness, syncope or pre-syncope Resp: Reports: dyspnea and wheezing GI: Denies: abdominal pain, nausea, vomiting or diarrhea : Denies: flank pain, difficulty urinating, dysuria, urinary frequency or urinary urgency Musc: Denies: neck pain, back pain, extremity pain or joint pain Skin/Breast: Denies: rash Neuro: Denies: headache(s), numbness in extremities, weakness in extremities or sensory changes PFSH ED 2 PFSH: Medical History Peripheral arterial disease Benign essential HTN Iliac artery aneurysm, bilateral DA (obstructive sleep apnea) Hx of seizure disorder Depression Dyspnea on exertion Popliteal artery aneurysm Spinal stenosis Tinnitus Sleep apnea in adult A-fib COPD (chronic obstructive pulmonary disease) Surgical History History of PTCA S/P hernia repair incisional History of vascular surgery rt and left leg 2019 History of colonoscopy with polypectomy 2018 History of AAA (abdominal aortic aneurysm) repair 2010 History of left inguinal hernia repair 2016 Family History Mother Cancer Diabetes Father CAD (coronary artery disease) Cancer Chronic kidney disease (CKD) Diabetes Brother No problems noted. Sister No problems noted. Grandfather Lung disease Denies family history of Clotting disorder Dementia Suicide Anesthesia complication Bleeding disorder Stroke Social History Smoking and tobacco/nicotine status: former use of tobacco/nicotine Quit status (tobacco/nicotine): has quit using Year quit tobacco: May 2021 Former quit date comment: 2ppd X 50 Alcohol intake: never Substance/Drug Use: never Physical Exam 2 Const: COMMON NORMALS: average body habitus, patient oriented x3, no limitations, healthy appearing, alert and well nourished GENERAL APPEARANCE: cooperative and in distress (respiratory distress) ORIENTATION/CONSCIOUSNESS: Yes awake, Yes oriented to person, Yes oriented to place and Yes oriented to time HENMT: COMMON NORMALS: normocephalic and atraumatic HEAD & SCALP: normal to inspection, normocephalic and atraumatic Neck/C-Spine: COMMON NORMALS: full ROM, no lymphadenopathy, no meningeal signs, no JVD and No carotid bruits Chest: COMMONS NORMALS: normal inspection of the chest and normal palpation of entire chest wall Resp: EFFORT & INSPECTION: Yes tachypneic, Yes respiratory distress, Yes labored and Yes uses accessory muscles AUSCULTATION: wheezes throughout Cardio: COMMON NORMALS: no JVD RATE: tachycardic RHYTHM: abnormal rhythm irregularly irregular GI: COMMON NORMALS: Normal to inspection, nondistended, normoactive bowel sounds present, Soft to palpation and non-tender PALPATION: Yes Soft to palpation : COMMON NORMALS: Yes no CVA tenderness BLADDER/KIDNEY EXAM: Yes no CVA tenderness Back/Pelvis: COMMON NORMALS: no CVA tenderness and thoracic and lumbar spine normal to inspection Extremity: COMMON NORMALS: capillary refill normal, no joint enlargement, no clubbing, cyanosis or edema, no calf tenderness and no pedal edema GENERAL: Y es normal exam except as noted Neuro: PARAG COMA SCALE: document GCS findings Parag coma scale eye opening: Spontaneous Arpin coma scale verbal response: Orientated Parag coma scale motor response: Obey commands Parag coma scale total score: 15 COMMON NORMALS: patient oriented x3, moves all extremities, no focal motor deficits, no sensory deficits noted and gait normal SENSORIUM/ORIENTATION: Yes alert, Yes oriented to person, Yes oriented to place and Yes oriented to time MENINGEAL SIGNS: Yes no meningeal signs Skin: COMMON NORMALS: no rashes or lesions noted GENERAL SKIN EXAM: no rashes or lesions noted Course 2 Vital Signs: Vital signs: Vital Signs Temperature 98.4 F 10/20/23 09:54 Pulse Rate 87 10/20/23 11:22 Respiratory Rate 18 10/20/23 10:53 Blood Pressure 108/75 10/20/23 10:21 Pulse Oximetry 94 10/20/23 10:53 Oxygen Delivery Me thod Nasal Cannula 10/20/23 10:53 Oxygen Flow Rate 4 10/20/23 10:53 MDM - SOB/Dyspnea Medical Decision Making Patient arrives to the ED today in an acute COPD exacerbation as well as A-fib with RVR. Rate currently controlled with IV Cardizem. Patient required multiple/stacked RT treatments for his diffuse wheezing, accessory muscle use, and tachypnea. He seems to be doing better now. Patient will require admission from COPD exacerbation and optimized A-fib rate drugs. I spoken to hospitalist Dr. Stubbs who will admit patient. Dr. Sánchez aware of patient and will place admit orders. Differential Diagnosis Likely acute exacerbation of chronic obstructive airways disease, congestive heart failure and community acquired pneumonia Medical Records I reviewed the patient's medical records. Lab Data I reviewed the patient's lab results. 10/20/23 10:03 10/20/23 10:03 Labs/Radiology: Laboratory Results WBC 13.93 10^3/uL (3.29-11.43) H 10/20/23 10:03 RBC 4.68 10^6/uL (3.85-5.65) 10/20/23 10:03 Hgb 13.80 g/dL (11.27-16.99) 10/20/23 10:03 Hct 44.7 % (37-53) 10/20/23 10:03 MCV 95.5 fl (82-101) 10/20/23 10:03 MCH 29.5 pg (27-33) 10/20/23 10:03 MCHC 30.9 g/dL (30-55) 10/20/23 10:03 RDW 15.3 % (12.1-15.1) H 10/20/23 10:03 Plt Count 214 10^3/cmm (157-399) 10/20/23 10:03 MPV 10.1 fL (7.4-10.4) 10/20/23 10:03 Neut % (Auto) 87.3 % 10/20/23 10:03 Lymph % (Auto) 4.5 % 10/20/23 10:03 [place] % (Auto) 5.5 % 10/20/23 10:03 Eos % (Auto) 1.7 % 10/20/23 10:03 Baso % (Auto) 0.4 % 10/20/23 10:03 Neut # (Auto) 12.16 10^3/uL (1.8-7.7) H 10/20/23 10:03 Lymph # (Auto) 0.6 10^3/uL (0.8-4.8) L 10/20/23 10:03 [place] # (Auto) 0.8 10^3/uL (0.2-0.9) 10/20/23 10:03 Eos # (Auto) 0.2 10^3/uL (0.0-0.8) 10/20/23 10:03 Baso # (Auto) 0.1 10^3/uL (0.0-0.1) 10/20/23 10:03 Nucleated RBC % (auto) 0 % 10/20/23 10:03 Nucleated RBCs # 0.0 /100WBC 10/20/23 10:03 Sodium 142 mmol/L (136-145) 10/20/23 10:03 Potassium 4.8 mmol/L (3.5-5.1) 10/20/23 10:03 Chloride 100 mmol/L (98-107) 10/20/23 10:03 Carbon Dioxide 34 mmol/L (22-29) H 10/20/23 10:03 Anion Gap 12.8 (5-19) 10/20/23 10:03 BUN 20 mg/dL (8-23) 10/20/23 10:03 Creatinine 0.6 mg/dL (0.7-1.2) L 10/20/23 10:03 GFR Calculation Not Reportable 10/20/23 10:03 Glucose 130 mg/dL (65-115) H 10/20/23 10:03 Calculated Osmolality 298 mOsm/kg (285-295) H 10/20/23 10:03 Calcium 9.6 mg/dL (8.5-10.5) 10/20/23 10:03 Total Bilirubin 1.0 mg/dL (0.15-1.2) 10/20/23 10:03 AST 17 U/L (0-40) 10/20/23 10:03 ALT 17 U/L (0-41) 10/20/23 10:03 Alkaline Phosphatase 66 U/L (40-130) 10/20/23 10:03 Troponin T Baseline 24 ng/L (0-15) H 10/20/23 10:03 NT-Pro-B Natriuret Pep 501 pg/mL (0-125) H 10/20/23 10:03 Total Protein 6.9 g/dL (6.6-8.7) 10/20/23 10:03 Albumin 4.4 g/dL (3.5-5.2) 10/20/23 10:03 Globulin 2.5 g/dL (1.3-4.6) 10/20/23 10:03 Procalcitonin 0.07 ng/mL (0-0.5) 10/20/23 10:03 All radiology interpretation(s) finalized by discharge Discharge Plan Discharge Patient Disposition: Placed in Observation Clinical Impression: Atrial fibrillation with RVR, Acute exacerbation of chronic obstructive pulmonary disease Coding Level of Care Code 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 Documented by User: Howard Sánchez DO 10/20/23 12:55 HPI - SOB/Dyspnea 2 General: Chief Complaint: Shortness of Breath/Dyspnea Stated Complaint: SOB, sent by heart care Time Seen by Provider: 10/20/23 09:58 PFSH ED 2 PFSH: Medical History Peripheral arterial disease Benign essential HTN Iliac artery aneurysm, bilateral DA (obstructive sleep apnea) Hx of seizure disorder Depression Dyspnea on exertion Popliteal artery aneurysm Spinal stenosis Tinnitus Sleep apnea in adult A-fib COPD (chronic obstructive pulmonary disease) Surgical History History of PTCA S/P hernia repair incisional History of vascular surgery rt and left leg 2019 History of colonoscopy with polypectomy 2018 History of AAA (abdominal aortic aneurysm) repair 2010 History of left inguinal hernia repair 2016 Family History Mother Cancer Diabetes Father CAD (coronary artery disease) Cancer Chronic kidney disease (CKD) Diabetes Brother No problems noted. Sister No problems noted. Grandfather Lung disease Denies family history of Clotting disorder Dementia Suicide Anesthesia complication Bleeding disorder Stroke Social History Smoking and tobacco/nicotine status: former use of tobacco/nicotine Quit status (tobacco/nicotine): has quit using Year quit tobacco: May 2021 Former quit date comment: 2ppd X 50 Alcohol intake: never Substance/Drug Use: never Physical Exam 2 Neuro: PARAG COMA SCALE: document GCS findings Parag coma scale total score: 15 Course 2 Vital Signs: Vital signs: Vital Signs Temperature 98.4 F 10/20/23 09:54 Pulse Rate 87 10/20/23 11:22 Respiratory Rate 18 10/20/23 10:53 Blood Pressure 108/75 10/20/23 10:21 Pulse Oximetry 94 10/20/23 10:53 Oxygen Delivery Me thod Nasal Cannula 10/20/23 10:53 Oxygen Flow Rate 4 10/20/23 10:53 MDM - SOB/Dyspnea Medical Decision Making Patient arrives to the ED today in an acute COPD exacerbation as well as A-fib with RVR. Rate currently controlled with IV Cardizem. Patient required multiple/stacked RT treatments for his diffuse wheezing, accessory muscle use, and tachypnea. He seems to be doing better now. Patient will require admission from COPD exacerbation and optimized A-fib rate drugs. I spoken to hospitalist Dr. Stubbs who will admit patient. Dr. Sánchez aware of patient and will place admit orders. Chart reviewed and patient discussed with midlevel. Agree with assessment and plan. Lab Data 10/20/23 10:03 10/20/23 10:03 Labs/Radiology: Laboratory Results WBC 13.93 10^3/uL (3.29-11.43) H 10/20/23 10:03 RBC 4.68 10^6/uL (3.85-5.65) 10/20/23 10:03 Hgb 13.80 g/dL (11.27-16.99) 10/20/23 10:03 Hct 44.7 % (37-53) 10/20/23 10:03 MCV 95.5 fl (82-101) 10/20/23 10:03 MCH 29.5 pg (27-33) 10/20/23 10:03 MCHC 30.9 g/dL (30-55) 10/20/23 10:03 RDW 15.3 % (12.1-15.1) H 10/20/23 10:03 Plt Count 214 10^3/cmm (157-399) 10/20/23 10:03 MPV 10.1 fL (7.4-10.4) 10/20/23 10:03 Neut % (Auto) 87.3 % 10/20/23 10:03 Lymph % (Auto) 4.5 % 10/20/23 10:03 [place] % (Auto) 5.5 % 10/20/23 10:03 Eos % (Auto) 1.7 % 10/20/23 10:03 Baso % (Auto) 0.4 % 10/20/23 10:03 Neut # (Auto) 12.16 10^3/uL (1.8-7.7) H 10/20/23 10:03 Lymph # (Auto) 0.6 10^3/uL (0.8-4.8) L 10/20/23 10:03 [place] # (Auto) 0.8 10^3/uL (0.2-0.9) 10/20/23 10:03 Eos # (Auto) 0.2 10^3/uL (0.0-0.8) 10/20/23 10:03 Baso # (Auto) 0.1 10^3/uL (0.0-0.1) 10/20/23 10:03 Nucleated RBC % (auto) 0 % 10/20/23 10:03 Nucleated RBCs # 0.0 /100WBC 10/20/23 10:03 Sodium 142 mmol/L (136-145) 10/20/23 10:03 Potassium 4.8 mmol/L (3.5-5.1) 10/20/23 10:03 Chloride 100 mmol/L (98-107) 10/20/23 10:03 Carbon Dioxide 34 mmol/L (22-29) H 10/20/23 10:03 Anion Gap 12.8 (5-19) 10/20/23 10:03 BUN 20 mg/dL (8-23) 10/20/23 10:03 Creatinine 0.6 mg/dL (0.7-1.2) L 10/20/23 10:03 GFR Calculation Not Reportable 10/20/23 10:03 Glucose 130 mg/dL (65-115) H 10/20/23 10:03 Calculated Osmolality 298 mOsm/kg (285-295) H 10/20/23 10:03 Calcium 9.6 mg/dL (8.5-10.5) 10/20/23 10:03 Total Bilirubin 1.0 mg/dL (0.15-1.2) 10/20/23 10:03 AST 17 U/L (0-40) 10/20/23 10:03 ALT 17 U/L (0-41) 10/20/23 10:03 Alkaline Phosphatase 66 U/L (40-130) 10/20/23 10:03 Troponin T Baseline 24 ng/L (0-15) H 10/20/23 10:03 NT-Pro-B Natriuret Pep 501 pg/mL (0-125) H 10/20/23 10:03 Total Protein 6.9 g/dL (6.6-8.7) 10/20/23 10:03 Albumin 4.4 g/dL (3.5-5.2) 10/20/23 10:03 Globulin 2.5 g/dL (1.3-4.6) 10/20/23 10:03 Procalcitonin 0.07 ng/mL (0-0.5) 10/20/23 10:03 Discharge Plan Discharge Patient Disposition: Placed in Observation Clinical Impression: Atrial fibrillation with RVR, Acute exacerbation of chronic obstructive pulmonary disease Coding Level of Care Code 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
[2023-10-20] MEDS: ipratropium-albuterol 3 mL Neb INHALATION ×3 (10:11→19:52)
[2023-10-20] MEDS: dilTIAZem 5 mg/mL SDV 5 mL 10 MG IVP (10:17)
[2023-10-20] MEDS: methylPREDNISolone sod succ 125 mg/2 mL INJ IVP (10:20)
[2023-10-20 10:28] LABS: Troponin(5th) Baseline 24 ng/L (0-15)
[2023-10-20 10:37] LABS: Alanine Aminotransferase 17 U/L (0-41); Albumin Level 4.4 g/dL (3.5-5.2); Alkaline Phosphatase 66 U/L (40-130); Aspartate Amino Transferase 17 U/L (0-40); Blood Urea Nitrogen 20 mg/dL (8-23); Calcium 9.6 mg/dL (8.5-10.5); Carbon Dioxide 34 mmol/L (22-29); Chloride 100 mmol/L (98-107); Globulin 2.5 g/dL (1.3-4.6); Glucose 130 mg/dL (65-115); NT Pro B Type Natriuretic Pept 501 pg/mL (0-125); Osmolality Calculated 298 mOsm/kg (285-295); Sodium 142 mmol/L (136-145); Total Protein 6.9 g/dL (6.6-8.7)
[2023-10-20 10:45] LABS: Anion Gap 12.8 (5-19); Creatinine Clr Calc Pharmacy 93.6623; Potassium 4.8 mmol/L (3.5-5.1)
[2023-10-20] MEDS: ipratropium-albuterol 3 mL Neb 9 ML INHALATION (10:54)
--- NOTE | 2023-10-20 11:59 | ECG_ITS ---
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 Measurements Intervals [place] Rate: 97 P: 0 HI: 0 QRS: 61 QRSD: 97 T: 44 QT: 350 QTc: 446 Interpretive Statements ATRIAL FIBRILLATION Compared to ECG 10/20/2023 10:04:28 T-wave abnormality no longer present Electronically Signed On 10-20-2023 17:06:53 CDT by Casa Baig M.D. [id number]
[2023-10-20 12:21] LABS: Procalcitonin 0.07 ng/mL (0-0.5)
--- NOTE | 2023-10-20 12:46 | USCV_ITS ---
Kimo Hernandez Age: 73 Gender: M : 1950 Exam Date: 10/20/2023 16:12 Ordering Phys: Timmy Stubbs MD Technologist: Regino Reid Exam Location: [facility] [place]_ Indication: afib BP: 144 / 85 HR: 73 Rhythm: Sinus Technical Quality: Technically difficult study MEASUREMENTS (Male / Female) Normal Values 2D ECHO LVOT Diameter 3.3 cm LA Diameter 4.1 cm RA Systolic Volume 4C AL 70.6 ml RA Systolic Volume 4C MOD 68.0 ml LA Sys Volume AL 94.0 cm cubed LA Sys Volume Index AL 43.1 cm cubed/m squared Aorta at Sinotubular Diameter 3.4 cm M-MODE LA Ao Ratio MM 1.1 AV Cusp Separation MM 2.1 cm DOPPLER AV Peak Velocity 83.0 cm/s LVOT Peak Velocity 50.0 cm/s AV Area Cont Eq vti 8.2 cm squared AV Area Cont Eq pk 5.1 cm squared TV Peak Velocity 359.0 cm/s TR Peak Velocity 415.0 cm/s TR Peak Gradient 68.9 mmHg TR Mean Velocity 313.0 cm/s TR Mean Gradient 43.5 mmHg TR Velocity Time Integral 101.1 cm RV Ejection Time 0.3 s FINDINGS Left Ventricle Normal left ventricular size and systolic function, EF 65%. No regional wall motion abnormalities. Right Ventricle Possibly normal RV size and ejection fraction Right Atrium Moderately increased right atrial size. Left Atrium Moderately increased left atrial size. Mitral Valve No gross abnormalities noted Aortic Valve No gross abnormalities noted Tricuspid Valve Trace to mild tricuspid valve regurgitation. Pulmonic Valve Pulmonic valve not well visualized. Pericardium No pericardial effusion. Aorta Normal aortic annulus size. IVC Inferior vena cava not visualized. CONCLUSIONS Normal left ventricular size and systolic function, EF 65%. No regional wall motion abnormalities. Moderate biatrial enlargement. Trace to mild tricuspid valve regurgitation. There is no pericardial effusion. Technically difficult study because of the poor ultrasonic window. Compared to the study from 07/04/2022, there may be a significant change in the 2D findings Dr Andrew Petersen MD [facility] (Electronically Signed) Final Date: 20 October 2023 19:58 S
--- NOTE | 2023-10-20 12:47 | P.HP_ITS ---
Providers/Chief Complaint 2 Primary Care Provider: Jackie Kulkarni MD Chief Complaint: SOB, sent by heart care History of Present Illness Kimo Hernandez is a 73 year old male with a past medical history of COPD, prior history of smoking, atrial fibrillation on Eliquis, hypertension, hyperlipidemia, history of with endovascular stent, and femoral artery aneurysm, who presents to [facility] due to increasing shortness of breath, shortness of breath with exertion, chest palpitations. Patient tells me for the last few days, he has had increased shortness of breath increased shortness of breath with exertion, with cough, he is also experienced chest palpitations, he was recently found to have A-fib with RVR, was placed on metoprolol, but there was some confusion about if he was taking or not, he denies taking metoprolol,. Patient saw Dr. De La Torre this morning, was found to have increased shortness of breath, concerns for A-fib with RVR was sent to the emergency room for evaluation. Currently on 4 L, currently in A-fib heart rates are well- controlled in the 90s, he is normotensive, he has been given a dose of p.o. metoprolol, he is short of breath with a few words, nasal flaring intercostal retractions diffuse wheezing in all lung anderson, airway sound tight, has active coughing, nonproductive, Review of Systems 2 Const: Denies: fever(s) or chills Eyes: Denies: change in vision Card: Reports: palpitations and swelling of feet/ankles; Denies: chest pain Resp: Reports: dyspnea, non-productive cough and wheezing GI: Denies: abdominal pain Medications/Allergies Home Medications Medication Instructions Recorded Confirmed Last Taken Type albuterol sulfate 90 mcg/actuation 1 inh inhalation QID PRN Shortness 10/09/20 10/20/23 02/20/23 History aerosol inhaler (ProAir HFA) Of Breath apixaban 5 mg tablet 5 mg PO BID 10/09/20 10/20/23 10/20/23 History cholecalciferol (vitamin D3) 25 25 mcg PO DAILY ##0 10/26/20 10/20/23 10/20/23 History mcg (1,000 unit) capsule (Vitamin D3) levetiracetam 500 mg tablet 500 mg PO BID 02/21/23 10/20/2324 History rosuvastatin 40 mg tablet 40 mg PO QPM 02/21/23 10/20/23 10/19/23 History diltiazem HCl 180 mg 180 mg PO DAILY 06/04/23 10/20/23 10/20/23 History capsule,extended release 24 hr prednisolone 5 mg tablet 5 mg PO DAILY #30 tabs 06/30/23 10/20/23 10/20/23 Rx arformoterol 15 mcg/2 mL solution 2 ml inhalation BID #120 mL 08/02/23 10/20/23 10/20/23 Rx for nebulization budesonide 0.5 mg/2 mL suspension 0.5 mg (2 mL) inhalation BID #120 08/02/23 10/20/23 10/20/23 Rx for nebulization mL guaifenesin 600 mg tablet, 600 mg PO BID PRN congestion #60 08/02/23 10/20/23 10/20/23 Rx extended release 12 hr (Mucinex) tabs tiotropium bromide 1.25 2 puff inhalation DAILY #4 grams 08/02/23 10/20/23 10/20/23 Rx mcg/actuation mist for inhalation (Spiriva Respimat) furosemide 20 mg tablet (Lasix) 20 mg PO DAILY #60 tabs 09/08/23 10/20/23 10/20/23 Rx potassium chloride 20 mEq 10 meq (1/2 x 20 mEq) PO DAILY #90 09/08/23 10/20/23 10/20/23 Rx tablet,extended release tabs albuterol sulfate 0.63 mg/3 mL 0.63 mg (3 mL) inhalation Q6H #90 10/20/23 10/20/23 10/20/23 Rx solution for nebulization mL doxycycline hyclate 100 mg tablet 100 mg PO BID #10 tabs 10/20/23 10/20/23 Unknown Rx Allergies Allergy/AdvReac Type Severity Reaction Status Date / Time No Known Allergies Allergy Verified 10/20/23 10:01 PFSH Acute 2 PFSH: Medical History Peripheral arterial disease Benign essential HTN Iliac artery aneurysm, bilateral DA (obstructive sleep apnea) Hx of seizure disorder Depression Dyspnea on exertion Popliteal artery aneurysm Spinal stenosis Tinnitus Sleep apnea in adult A-fib COPD (chronic obstructive pulmonary disease) Surgical History History of PTCA S/P hernia repair incisional History of vascular surgery rt and left leg 2019 History of colonoscopy with polypectomy 2018 History of AAA (abdominal aortic aneurysm) repair 2010 History of left inguinal hernia repair 2016 Family History Mother Cancer Diabetes Father CAD (coronary artery disease) Cancer Chronic kidney disease (CKD) Diabetes Brother No problems noted. Sister No problems noted. Grandfather Lung disease Denies family history of Clotting disorder Dementia Suicide Anesthesia complication Bleeding disorder Stroke Social History Smoking and tobacco/nicotine status: former use of tobacco/nicotine Quit status (tobacco/nicotine): has quit using Year quit tobacco: May 2021 Former quit date comment: 2ppd X 50 Alcohol intake: never Substance/Drug Use: never Vitals/I&O/Wt Last Vital Signs Temp 98.4 F 10/20/23 09:54 Pulse 87 10/20/23 11:22 Resp 18 10/20/23 10:53 BP 108/75 10/20/23 10:21 Pulse Ox 94 10/20/23 10:53 O2 Del Method Nasal Cannula 10/20/23 10:53 O2 Flow Rate 4 10/20/23 10:53 Weight last 48 hrs Weight 95.254 kg Physical Exam 2 Const: COMMON NORMALS: no acute distress and patient oriented x3 HENMT: COMMON NORMALS: normocephalic HEAD & SCALP: normocephalic Eye: COMMON NORMALS: Equal, round and reactive pupils present and EOMs intact bilaterally Neck/C-Spine: COMMON NORMALS: no JVD Lymph: LYMPHATIC: no lymphadenopathy noted Resp: COMMON NORMALS: normal respiratory effort, No retractions and No use of accessory muscles OTHER: Patient Tachypnea, nasal flaring, diffuse wheezing, short of breath with a few words Cardio: COMMON NORMALS: S1 normal heart sound present and S2 normal heart sound present RATE: regular rate RHYTHM: abnormal rhythm irregularly irregular HEART SOUNDS: S1 normal heart sound present and S2 normal heart sound present GI: COMMON NORMALS: Normal to inspection, nondistended, normoactive bowel sounds present, Soft to palpation and non-tender Extremity: COMMON NORMALS: no calf tenderness NARRATIVE EXTREMITY EXAM: 1+ nonpitting edema Neuro: COMMON NORMALS: patient oriented x3, CN's II-XII intact bilaterally and moves all extremities Psych: COMMON NORMALS: mental status grossly normal Data 10/20/23 10:03 10/20/23 10:03 A&P Assessment and plan (1) Acute exacerbation of chronic obstructive pulmonary disease: (2) Atrial fibrillation with RVR: (3) Peripheral arterial disease: (4) Femoral artery aneurysm, bilateral: (5) DA (obstructive sleep apnea): (6) CHF exacerbation: (7) Acute hypoxic respiratory failure: Plan Acute hypoxic respiratory failure ? Secondary to COPD exacerbation, ? Secondary to CHF fluid overload, A-fib with RVR ? Plan ? Solu-Medrol 125 followed by 40 mg IV every 8 hours ? Continue Rocephin, azithromycin ? Budesonide, ? DuoNeb ? Will consider Lasix based on clinical progress ? Continue p.o. Cardizem ?continue p.o. metoprolol 5 daily next ?continue Eliquis ? Follow sputum culture, respiratory viral panel, blood culture ? Full code ? Eliquis for DVT prophylaxis Attestations 2 Medical Necessity Statement*: Patient requires hospitalization, inpatient, greater than 2 midnights, for acute hypoxic respiratory failure, COPD exacerbation CHF, A-fib with RVR Coding Level of Care Code Acute Code for Chg Fwd Diagnoses Acute exacerbation of chronic obstructive pulmonary disease J44.1 Atrial fibrillation with RVR I48.91 Peripheral arterial disease I73.9 Femoral artery aneurysm, bilateral I72.4 DA (obstructive sleep apnea) G47.33 CHF exacerbation I50.9 Acute hypoxic respiratory failure J96.01
[2023-10-20 13:03] LABS: Troponin 5 2HR 17.29 ng/L (0-15)
[2023-10-20 13:06] LABS: Troponin 5 2HR Delta -6.71 ABS# (0-10)
[2023-10-20] MEDS: cefTRIAXone 1,000 MG in sodium chloride 0.9% (plus) 50 ML 100 MG IV (13:18)
[2023-10-20 13:35] LABS: C Reactive Protein 4.2 mg/L (0.0-4.9); NT Pro B Type Natriuretic Pept 516 pg/mL (0-125)
[2023-10-20 13:45] LABS: Adenovirus Not Detected (NOT DETECT); Chlamydia Pneumoniae Not Detected (NOT DETECT); Coronavirus 229E,HKU1,NL63,OC4 Not Detected (NOT DETECT); Human Metapneumovirus Not Detected (NOT DETECT); Human Rhinovirus/Enterovirus Not Detected (NOT DETECT); Influenza A Not Detected (NOT DETECT); Influenza A H1 Not Detected (NOT DETECT); Influenza A H1-2009 Not Detected (NOT DETECT); Influenza A H3 Not Detected (NOT DETECT); Influenza B Not Detected (NOT DETECT); Mycoplasma Pneumoniae Not Detected (NOT DETECT); Parainfluenza Virus Type 1 Not Detected (NOT DETECT); Parainfluenza Virus Type 2 Not Detected (NOT DETECT); Parainfluenza Virus Type 3 Not Detected (NOT DETECT); Parainfluenza Virus Type 4 Not Detected (NOT DETECT); Respiratory Syncytial Virus A Not Detected (NOT DETECT); Respiratory Syncytial Virus B Not Detected (NOT DETECT); SARS-COV-2 Not Detected (NOT DETECT)
[2023-10-20 13:55] LABS: Thyroid Stimulating Hormone 1.82 uIU/mL (0.27-4.20)
[2023-10-20 15:13] LABS: Chol HDL Ratio 4.44 mg/dL (1.0-5.00); Cholesterol 213 mg/dL (0-200); HDL Cholesterol 48 mg/dL (60-100); LDL Cholesterol Calculated 146 mg/dL (50-129); LDL HDL Ratio 3.04 RATIO (0.00-3.22); Triglycerides 93 mg/dL (0-150)
[2023-10-20 15:16] LABS: Estmated Average Glucose 103; Hemoglobin A1C 5.2 % (4.0-6.0)
[2023-10-20] MEDS: azithromycin 500 MG in sodium chloride 0.9% 250 ML 250 MG IV (15:30)
--- NOTE | 2023-10-20 15:59 | ECG_ITS ---
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 Measurements Intervals [place] Rate: 83 P: 0 MI: 0 QRS: 73 QRSD: 100 T: 66 QT: 378 QTc: 445 Interpretive Statements ATRIAL FIBRILLATION Compared to ECG 10/20/2023 12:01:12 No significant changes Electronically Signed On 10-20-2023 17:04:19 CDT by Casa Baig M.D. [id number]
[2023-10-20 16:30] LABS: Troponin 5 6HR 13.78 ng/L (0-15); Troponin 5 6HR Delta -10.22 ng/L (0-12)
[2023-10-20] MEDS: apixaban 5 mg Tablet PO (18:34)
[2023-10-20] MEDS: pantoprazole 40 mg SDV IVP (18:34)
[2023-10-20] MEDS: levETIRAcetam 500 mg Tablet PO (18:34)
[2023-10-20] MEDS: atorvastatin 40 mg Tablet 80 MG PO (18:34)
[2023-10-20] MEDS: budesonide 0.5 mg/2 mL Neb INHALATION (19:52)
[2023-10-20] MEDS: metoprolol tartrate 25 mg Tablet PO (21:47)
[2023-10-21] VITALS (18 sets, daily range): BP systolic 100–129; BP diastolic 74–89; PULSE 80–94; RESP 18–28; TEMP 36.3–37.1; O2SAT 91–95
[2023-10-21] MEDS: methylPREDNISolone sod succ 40 mg/mL INJ IVP ×3 (05:12→21:32)
[2023-10-21 05:21] LABS: Basophils % 0.1 %; Hematocrit 39.5 % (37-53); Lymphocytes # 0.3 10^3/uL (0.8-4.8); Lymphocytes % 4.2 %; Mean Corpuscular HGB Conc 30.9 g/dL (30-55); Mean Corpuscular Hemoglobin 29.4 pg (27-33); Mean Corpuscular Volume 95.2 fl (82-101); Mean Platelet Volume 10.6 fL (7.4-10.4); Monocytes # 0.2 10^3/uL (0.2-0.9); Monocytes % 2.6 %; Neutrophils # 6.98 10^3/uL (1.8-7.7); Neutrophils % 92.6 %; Nucleated Red Blood Cells % 0 %; Platelet Count 194 10^3/cmm (157-399); Red Blood Count 4.15 10^6/uL (3.85-5.65); Red Cell Distribution Width 15.1 % (12.1-15.1); White Blood Count 7.55 10^3/uL (3.29-11.43)
[2023-10-21 05:46] LABS: Anion Gap 9.5 (5-19); Blood Urea Nitrogen 18 mg/dL (8-23); Calcium 9.4 mg/dL (8.5-10.5); Carbon Dioxide 32 mmol/L (22-29); Chloride 102 mmol/L (98-107); Creatinine Clr Calc Pharmacy 90.2858; Glucose 130 mg/dL (65-115); Osmolality Calculated 292 mOsm/kg (285-295); Potassium 4.5 mmol/L (3.5-5.1); Sodium 139 mmol/L (136-145)
[2023-10-21] MEDS: budesonide 0.5 mg/2 mL Neb INHALATION ×2 (08:40→19:54)
[2023-10-21] MEDS: ipratropium-albuterol 3 mL Neb INHALATION ×4 (08:40→19:54)
[2023-10-21] MEDS: metoprolol tartrate 25 mg Tablet PO ×2 (08:56→20:30)
[2023-10-21] MEDS: dilTIAZem ER (24HR) 180 mg Capsule PO (08:56)
[2023-10-21] MEDS: levETIRAcetam 500 mg Tablet PO ×2 (08:56→17:48)
[2023-10-21] MEDS: apixaban 5 mg Tablet PO ×2 (08:57→17:49)
[2023-10-21] MEDS: FUROsemide 10 mg/mL SDV 4mL 40 MG IVP (10:33)
--- NOTE | 2023-10-21 13:36 | P.PN_ITS ---
Subjective 2 Subjective: Patient was seen this morning continues to complain of shortness of breath, nonproductive cough, no fevers, chills, no chest pain, no palpitations, heart rates are more well-controlled Vitals/I&O/Wt Last Vital Signs Temp 97.5 F L 10/21/23 11:24 Pulse 88 10/21/23 12:00 Resp 20 H 10/21/23 11:26 BP 107/78 10/21/23 11:24 Pulse Ox 94 10/21/23 11:26 O2 Del Method Nasal Cannula 10/21/23 11:26 O2 Flow Rate 4 10/21/23 11:26 10/20/23 10/21/23 10/21/23 22:59 06:59 14:59 Intake Total 250 / 300 240 / 240 Output Total 100 / 100 200 / 300 1305 / 1305 Balance 150 / 200 -200 / 0 -1065 / -1065 Weight last 48 hrs Weight 87.498 kg Weight 87.997 kg Weight 95.254 kg Physical Exam 2 Const: COMMON NORMALS: no acute distress and patient oriented x3 Resp: COMMON NORMALS: normal respiratory effort, No retractions and No use of accessory muscles AUSCULTATION: crackles and wheezes Cardio: COMMON NORMALS: regular rate, S1 normal heart sound present and S2 normal heart sound present RATE: regular rate RHYTHM: abnormal rhythm irregularly irregular HEART SOUNDS: S1 normal heart sound present and S2 normal heart sound present GI: COMMON NORMALS: Normal to inspection, nondistended, normoactive bowel sounds present and non-tender Extremity: OTHER: 1+ pitting edema Neuro: COMMON NORMALS: patient oriented x3 Psych: COMMON NORMALS: mental status grossly normal Data 10/21/23 04:42 10/21/23 04:42 Micro: Microbiology 10/20/23 12:56 Blood Culture - Preliminary Blood NEGATIVE TO DATE 10/20/23 12:50 Blood Culture - Preliminary Blood NEGATIVE TO DATE A&P Assessment and plan (1) Acute exacerbation of chronic obstructive pulmonary disease: (2) Atrial fibrillation with RVR: (3) Peripheral arterial disease: (4) Femoral artery aneurysm, bilateral: (5) DA (obstructive sleep apnea): (6) CHF exacerbation: (7) Acute hypoxic respiratory failure: Plan Acute hypoxic respiratory failure ? Secondary to COPD exacerbation, ? Secondary to CHF fluid overload, A-fib with RVR ? Plan ? Solu-Medrol 125 followed by 40 mg IV every 8 hours ? Continue Rocephin, azithromycin ? Budesonide, ? DuoNeb ? Will consider Lasix based on clinical progress ? Continue p.o. Cardizem ?continue p.o. metoprolol 5 daily next ?continue Eliquis ? Follow sputum culture, respiratory viral panel, blood culture ? Full code ? Eliquis for DVT prophylaxis Plan for today continue steroids, continue IV antibiotics, monitor respiratory status monitor heart rates, does appear fluid overloaded, 1 dose IV Lasix, spoke to patient spoke to nursing staff reviewed prior blood work ordered blood work for tomorrow, followed blood cultures Attestations 2 Medical Necessity Statement*: Patient requires hospitalization for acute hypoxic respiratory failure secondary to COPD CHF A-fib, Diagnoses Acute exacerbation of chronic obstructive pulmonary disease J44.1 Atrial fibrillation with RVR I48.91 Peripheral arterial disease I73.9 Femoral artery aneurysm, bilateral I72.4 DA (obstructive sleep apnea) G47.33 CHF exacerbation I50.9 Acute hypoxic respiratory failure J96.01
[2023-10-21] MEDS: cefTRIAXone 1,000 MG in sodium chloride 0.9% (plus) 50 ML 100 MG IV (13:43)
[2023-10-21] MEDS: azithromycin 500 MG in sodium chloride 0.9% 250 ML 250 MG IV (13:44)
[2023-10-21] MEDS: pantoprazole 40 mg SDV IVP (14:19)
[2023-10-21] MEDS: atorvastatin 40 mg Tablet 80 MG PO (17:49)
[2023-10-22] VITALS (14 sets, daily range): BP systolic 97–129; BP diastolic 75–78; PULSE 66–92; RESP 17–28; TEMP 36.3–36.9; O2SAT 90–97
[2023-10-22 04:49] LABS: Hematocrit 38.6 % (37-53); Lymphocytes # 0.3 10^3/uL (0.8-4.8); Lymphocytes % 2.2 %; Mean Corpuscular HGB Conc 31.1 g/dL (30-55); Mean Corpuscular Hemoglobin 29.4 pg (27-33); Mean Corpuscular Volume 94.6 fl (82-101); Mean Platelet Volume 10.6 fL (7.4-10.4); Monocytes # 0.3 10^3/uL (0.2-0.9); Monocytes % 2.4 %; Neutrophils # 12.87 10^3/uL (1.8-7.7); Neutrophils % 94.9 %; Nucleated Red Blood Cells % 0 %; Platelet Count 177 10^3/cmm (157-399); Red Blood Count 4.08 10^6/uL (3.85-5.65); Red Cell Distribution Width 15.2 % (12.1-15.1); White Blood Count 13.56 10^3/uL (3.29-11.43)
[2023-10-22 05:08] LABS: Anion Gap 10.5 (5-19); Blood Urea Nitrogen 23 mg/dL (8-23); Calcium 9.4 mg/dL (8.5-10.5); Carbon Dioxide 36 mmol/L (22-29); Chloride 99 mmol/L (98-107); Creatinine Clr Calc Pharmacy 90.0536; Glucose 167 mg/dL (65-115); Osmolality Calculated 299 mOsm/kg (285-295); Potassium 4.5 mmol/L (3.5-5.1); Sodium 141 mmol/L (136-145)
[2023-10-22] MEDS: methylPREDNISolone sod succ 40 mg/mL INJ IVP ×3 (05:12→20:49)
[2023-10-22] MEDS: ipratropium-albuterol 3 mL Neb INHALATION ×4 (07:49→20:55)
[2023-10-22] MEDS: budesonide 0.5 mg/2 mL Neb INHALATION ×2 (07:51→20:55)
--- NOTE | 2023-10-22 08:43 | XRR_ITS ---
PROCEDURE INFORMATION: Exam: XR Chest Exam date and time: 10/22/2023 8:15 AM Age: 73 years old Clinical indication: Shortness of breath; Patient HX: SOB x 1 day , copd, emphysema TECHNIQUE: Imaging protocol: Radiologic exam of the chest. Views: 1 view. COMPARISON: CR XR chest 2V* [id number] 10/17/2023 11:42 AM FINDINGS: Lungs: Unchanged bilateral bullous emphysema with slight hyperexpansion of the lungs. No obvious superimposed acute pulmonary abnormality. Pleural spaces: Unremarkable. No pleural effusion. No pneumothorax. Heart/Mediastinum: Unremarkable. No cardiomegaly. Bones/joints: Unchanged mild scoliosis. Compression deformities of thoracic vertebral bodies are probably unchanged. Old healed right rib fractures. XR/XR chest 1V portable [id number] IMPRESSION: Unchanged bilateral bullous emphysema with slight hyperexpansion of the lungs. No superimposed acute findings.
[2023-10-22] MEDS: dilTIAZem ER (24HR) 180 mg Capsule PO (09:12)
[2023-10-22] MEDS: FUROsemide 10 mg/mL SDV 4mL 40 MG IVP ×2 (09:12→16:54)
[2023-10-22] MEDS: metoprolol tartrate 25 mg Tablet PO ×2 (09:13→20:06)
[2023-10-22] MEDS: levETIRAcetam 500 mg Tablet PO ×2 (09:13→18:05)
[2023-10-22] MEDS: apixaban 5 mg Tablet PO ×2 (09:13→18:05)
[2023-10-22 09:41] LABS: NT Pro B Type Natriuretic Pept 480 pg/mL (0-125)
[2023-10-22] MEDS: azithromycin 500 MG in sodium chloride 0.9% 250 ML 250 MG IV (11:48)
[2023-10-22] MEDS: cefTRIAXone 1,000 MG in sodium chloride 0.9% (plus) 50 ML 100 MG IV (11:48)
[2023-10-22] MEDS: pantoprazole 40 mg SDV IVP (14:25)
--- NOTE | 2023-10-22 15:17 | P.PN_ITS ---
Subjective 2 Subjective: Patient was seen this morning, he has received steroids antibiotics his breathing treatment however he continues to complain of shortness of breath and wheezing, with bilateral extremity edema, no fevers overnight, no chills, continues to have a cough Vitals/I&O/Wt Last Vital Signs Temp 98.5 F 10/22/23 11:40 Pulse 82 10/22/23 12:00 Resp 20 H 10/22/23 12:00 BP 97/76 10/22/23 11:40 Pulse Ox 92 10/22/23 12:00 O2 Del Method Nasal Cannula 10/22/23 12:00 O2 Flow Rate 4 10/22/23 12:00 10/22/23 10/22/23 10/22/23 06:59 14:59 22:59 Intake Total 480 / 1260 660 / 660 Output Total 250 / 1655 1350 / 1350 Balance 230 / -395 -690 / -690 Weight last 48 hrs Weight 87.997 kg Weight 87.498 kg Physical Exam 2 Const: COMMON NORMALS: no acute distress and patient oriented x3 Resp: COMMON NORMALS: normal respiratory effort, No retractions and No use of accessory muscles AUSCULTATION: crackles and wheezes Cardio: COMMON NORMALS: regular rate, regular rhythm, S1 normal heart sound present and S2 normal heart sound present RATE: regular rate RHYTHM: r egular rhythm HEART SOUNDS: S1 normal heart sound present and S2 normal heart sound present GI: COMMON NORMALS: Normal to inspection, nondistended, normoactive bowel sounds present and non-tender Extremity: NARRATIVE EXTREMITY EXAM: 2+ pitting edema Neuro: COMMON NORMALS: patient oriented x3 Psych: COMMON NORMALS: mental status grossly normal Data 10/22/23 04:18 10/22/23 04:18 Micro: Microbiology 10/20/23 17:03 Gram Stain - Final Sputum - Expectorated Sputum Sputum Culture - Final 10/20/23 12:56 Blood Culture - Preliminary Blood NEGATIVE TO DATE 10/20/23 12:50 Blood Culture - Preliminary Blood NEGATIVE TO DATE A&P Assessment and plan (1) Acute exacerbation of chronic obstructive pulmonary disease: (2) Atrial fibrillation with RVR: (3) Peripheral arterial disease: (4) Femoral artery aneurysm, bilateral: (5) DA (obstructive sleep apnea): (6) CHF exacerbation: (7) Acute hypoxic respiratory failure: Plan Acute hypoxic respiratory failure ? Secondary to COPD exacerbation, ? Secondary to CHF fluid overload, A-fib with RVR ? Plan ? Solu-Medrol 40 mg IV every 8 hours ? Continue Rocephin, azithromycin ? Budesonide, ? DuoNeb ? Fluid overloaded with crackles on exam the 2 doses of IV Lasix 40 mg IV today ? Continue p.o. Cardizem ?continue p.o. metoprolol 25 mg daily ?continue Eliquis ? Follow sputum culture, respiratory viral panel, blood culture ? Full code ? Eliquis for DVT prophylaxis Plan for today patient is fluid overloaded with crackles on exam 2 doses of IV Lasix, fluid restriction is 1000 cc BMP ordered chest x-ray ordered, continue to monitor respiratory status closely continue IV antibiotics continue steroids monitor heart rates monitor electrolytes Attestations 2 Medical Necessity Statement*: Patient requires hospitalization for acute respiratory failure concerning for CHF exacerbation requiring IV diuresis, COPD, Diagnoses Acute exacerbation of chronic obstructive pulmonary disease J44.1 Atrial fibrillation with RVR I48.91 Peripheral arterial disease I73.9 Femoral artery aneurysm, bilateral I72.4 DA (obstructive sleep apnea) G47.33 CHF exacerbation I50.9 Acute hypoxic respiratory failure J96.01
[2023-10-22] MEDS: atorvastatin 40 mg Tablet 80 MG PO (18:05)
[2023-10-23] VITALS (21 sets, daily range): BP systolic 118–149; BP diastolic 75–106; PULSE 82–135; RESP 18–27; TEMP 36.6–36.9; O2SAT 89–97
[2023-10-23 03:27] LABS: Basophils % 0.1 %; Lymphocytes # 0.2 10^3/uL (0.8-4.8); Lymphocytes % 1.5 %; Mean Corpuscular HGB Conc 31.2 g/dL (30-55); Mean Corpuscular Hemoglobin 29.2 pg (27-33); Mean Corpuscular Volume 93.4 fl (82-101); Monocytes # 0.4 10^3/uL (0.2-0.9); Neutrophils # 13.66 10^3/uL (1.8-7.7); Neutrophils % 94.6 %; Nucleated Red Blood Cells % 0 %; Platelet Count 186 10^3/cmm (157-399); Red Blood Count 4.39 10^6/uL (3.85-5.65); Red Cell Distribution Width 15.4 % (12.1-15.1); White Blood Count 14.42 10^3/uL (3.29-11.43)
[2023-10-23 03:48] LABS: Anion Gap 12.1 (5-19); Blood Urea Nitrogen 26 mg/dL (8-23); Calcium 9.7 mg/dL (8.5-10.5); Carbon Dioxide 38 mmol/L (22-29); Chloride 95 mmol/L (98-107); Creatinine Clr Calc Pharmacy 90.2858; Glucose 139 mg/dL (65-115); Osmolality Calculated 299 mOsm/kg (285-295); Potassium 4.1 mmol/L (3.5-5.1); Sodium 141 mmol/L (136-145)
[2023-10-23 03:55] LABS: Magnesium 2.1 mg/dL (1.7-2.3); NT Pro B Type Natriuretic Pept 502 pg/mL (0-125)
[2023-10-23] MEDS: metoprolol tartrate 25 mg Tablet PO (05:54)
[2023-10-23] MEDS: dilTIAZem ER (24HR) 180 mg Capsule PO (05:54)
[2023-10-23] MEDS: methylPREDNISolone sod succ 40 mg/mL INJ IVP ×3 (05:55→22:54)
[2023-10-23] MEDS: budesonide 0.5 mg/2 mL Neb INHALATION ×2 (08:29→20:12)
[2023-10-23] MEDS: ipratropium-albuterol 3 mL Neb INHALATION ×4 (08:29→20:12)
[2023-10-23] MEDS: apixaban 5 mg Tablet PO ×2 (09:16→17:11)
[2023-10-23] MEDS: levETIRAcetam 500 mg Tablet PO ×2 (09:16→17:11)
[2023-10-23] MEDS: FUROsemide 10 mg/mL SDV 4mL 40 MG IVP ×2 (09:16→15:35)
--- NOTE | 2023-10-23 10:51 | PC.CHAP ---
Pastoral Care Encounter/Spiritual Assessment Type of Contact [] Declined electrical appliance preparer visit [] Patient/Family/Request visit [] Outpatient visit [] Follow-up visit [] Physician referral [] Code/Alert [x] Routine visit [] Staff referral [] Actively dying [] Patient sleeping [] Family support [] [] Out of room [] Palliative care [] [] Receiving care in room [] Pre-surgical visit [] Trauma [] Long length of stay [] ICU visit [] Other: Relational/Emotional Strength [] Patient feels connected with others/family/visitors/staff [] Distress [] Loneliness/isolation [] Abandonment Spirituality of Patient [x] Person of Jessie [] Attends Advent of their Jessie [x] Believes in Prayer [] Reads Bible or Yarsanism materials [] There are Spiritual issues to be addressed Machine Bookkeeper Interventions [x] Prayer [x] Active listening [] Non-anxious presence [] Spiritual/emotional support [] Crisis/trauma care [] Spiritual counseling [] Bereavement support [] Provided bereavement packet [] Provided Bible/devotional materials [] Provided toy/stuffed animal, coloring book to patient or family member [] Provided Communion [] Anointing/[place] [] Salvation [x] Completed spiritual assessment [] Other: Impact on Illness or Injury [] Angry [] Fearful [] Anxious [] Often cries [] Exhaustion [] Unable to work [] Unable to attend advent [] Unable to walk/stand [] Unable to read [] Unable to drive [] Unable to eat/drink [] Unable to sleep [] Unable to be with family [] Patient intubated [] Other: Summary Time spent with patient 5 min
[2023-10-23] MEDS: azithromycin 250 mg Tablet PO (12:50)
[2023-10-23] MEDS: cefTRIAXone 1,000 MG in sodium chloride 0.9% (plus) 50 ML 100 MG IV (12:50)
--- NOTE | 2023-10-23 15:21 | P.PN_ITS ---
Subjective 2 Subjective: Patient was seen this morning, he continues to have wheezing, he reports lower extremity edema, he did diurese yesterday over 2 L, we discussed continuing IV diuresis today, potentially performing CAT scan of the chest today, he is agreeable, does report shortness of breath with exertion, Vitals/I&O/Wt Last Vital Signs Temp 98.0 F 10/23/23 04:00 Pulse 116 H 10/23/23 12:58 Resp 21 H 10/23/23 12:58 BP 137/75 10/23/23 12:58 Pulse Ox 89 L 10/23/23 12:58 O2 Del Method Nasal Cannula 10/23/23 11:30 O2 Flow Rate 4 10/23/23 11:30 10/23/23 10/23/23 10/23/23 06:59 14:59 22:59 Intake Total 480 / 480 50 / 530 Output Total 0 / 2655 900 / 900 Balance 0 / -1755 -420 / -420 50 / -370 Weight last 48 hrs Weight 86.636 kg Weight 87.997 kg Physical Exam 2 Const: COMMON NORMALS: no acute distress and patient oriented x3 Resp: COMMON NORMALS: normal respiratory effort, No retractions and No use of accessory muscles AUSCULTATION: crackles Cardio: COMMON NORMALS: S1 normal heart sound present and S2 normal heart sound present RATE: tachycardic HEART SOUNDS: S1 normal heart sound present and S2 normal heart sound present GI: COMMON NORMALS: Normal to inspection, nondistended, normoactive bowel sounds present and non-tender Extremity: COMMON NORMALS: no pedal edema Neuro: COMMON NORMALS: patient oriented x3 Psych: COMMON NORMALS: mental status grossly normal Data 10/23/23 02:50 10/23/23 02:50 Micro: Microbiology 10/20/23 17:03 Gram Stain - Final Sputum - Expectorated Sputum Sputum Culture - Final A&P Assessment and plan (1) Acute exacerbation of chronic obstructive pulmonary disease: (2) Atrial fibrillation with RVR: (3) Peripheral arterial disease: (4) Femoral artery aneurysm, bilateral: (5) DA (obstructive sleep apnea): (6) CHF exacerbation: (7) Acute hypoxic respiratory failure: Plan Acute hypoxic respiratory failure ? Secondary to COPD exacerbation, ? Secondary to CHF fluid overload, A-fib with RVR ? Plan ? Solu-Medrol 40 mg IV every 8 hours ? Continue Rocephin, azithromycin ? Budesonide, ? DuoNeb ? Fluid overloaded with crackles on exam the 2 doses of IV Lasix 40 mg IV today ? Continue p.o. Cardizem ?continue p.o. metoprolol 25 mg daily ?continue Eliquis ? Follow sputum culture, respiratory viral panel, blood culture ? Full code ? Eliquis for DVT prophylaxis Plan for today Continues to have wheezing and crackles and 2+ pitting edema bilateral extremity, has diuresed over 2 L yesterday, to do more doses of IV Lasix today continue to monitor respiratory status closely, continue Rocephin, continue steroids, CT of the chest, up out of bed, heart rates are elevated into the 116s, increased metoprolol to 37.5 twice daily, monitoring electrolytes monitor potassium monitor mag, Attestations 2 Medical Necessity Statement*: Patient requires hospitalization for fluid overload CHF exacerbation requiring IV diuresis, Diagnoses Acute exacerbation of chronic obstructive pulmonary disease J44.1 Atrial fibrillation with RVR I48.91 Peripheral arterial disease I73.9 Femoral artery aneurysm, bilateral I72.4 DA (obstructive sleep apnea) G47.33 CHF exacerbation I50.9 Acute hypoxic respiratory failure J96.01
[2023-10-23] MEDS: pantoprazole 40 mg SDV IVP (15:34)
[2023-10-23 16:36] LABS: ABG PCO2 56.2 mmHg (35-45); ABG PH Result 7.48 (7.35-7.45); Alveolar-Arterial Oxygen Gradi 36.8 mmHg (5-10); Arterial Blood Gas Hematocrit 46.5 % (42-52); Base Excess ABG 15.5 mmol/L (-2.0-2.0); Blood Gas Allen Test Pos; Blood Gas Operator Identificat GD; Blood Gas Sample Site Radial, right; Blood Gas Sample Type Arterial; Carboxyhemoglobin 0.7 %THgb (0.4-20.1); HCO3 ABG 42.1 mmol/L (22-26); HGB O2 Sat 98.1 % (95-100); Ionized Calcium Level - ABG 1.2 mmol/L (1.1-1.4); Methemoglobin 0.2 % (0.4-1.5); Oxygen Device BIPAP; PO2 FiO2 Ratio Arterial Blood 0; Potassium Level - ABG 4.1 mmol/L (3.5-5.0); Total Hemoglobin 15.2 g/dL (14-18)
--- NOTE | 2023-10-23 16:52 | PM.CCNAC ---
Critical Care Event Note The high probability of a clinically significant, sudden or life threatening deterioration of the patient's [] system(s) required my full and direct attention, intervention and personal management. The critical care time is as shown. This time is in addition to time spent performing any reported procedures but includes the following: [x] Data and vital sign review and interpretation [x] Patient assessment, examination and intervention [x] Documentation [x] Medication orders and management Critical Care Time Code activated: No Critical Care Time (min): 35 Additional information about critical care time: Patient developed acute respiratory failure this evening, respiratory therapy spoke to, plan to place on BiPAP placed on BiPAP, with A-fib with RVR heart rates in the 140s ? Patient was examined, on 65% BiPAP, he is alert oriented x 3, following all commands tachypneic intercostal retractions nasal flaring, suprasternal retractions patient is mild to moderate respiratory failure, acute hypoxic hypercarbic respiratory failure with mild respiratory distress has crackles in all lung anderson, urine output has been 500 cc, with A-fib with RVR heart rates in the 140s I had a detailed discussion with patient and at bedside likely patient has severe COPD with likely pulm hypertension, predisposing him to develop A-fib with RVR, which is difficult to control ? I will stop Cardizem, continue metoprolol, will start him on an amiodarone bolus with an amiodarone drip ? Continue Eliquis continue metoprolol ? Monitor respiratory status closely ABG ordered ? Will broaden antibiotic coverage to Zosyn CT angiogram the chest ordered, ? Continue Solu-Medrol 40 IV every 8 hours, continue breathing treatments, Toprol increased to 37.5 mg twice daily ? Received 1 dose of metolazone this evening, with Lasix will consider further diuresis, excess Hurd catheter placed, -repeat troponin series ? Currently patient status is critical, prognosis guarded,'s for severe respiratory failure, spoke to patient spoke to at bedside spoke to nursing staff spoke to respiratory therapy Coding Level of Care Code Acute Code for Chg Fwd
--- NOTE | 2023-10-23 17:01 | ECG_ITS ---
[facility] Test Date: 2023-10-23 Pat Name: Kimo Hernandez Department: Room: 108 Gender: Male Program Research Specialist: : 1950 Requested By: Timmy Stubbs Order Number: [id number] Ben MD: Andrew Petersen M.D. Measurements Intervals [place] Rate: 140 P: 0 AL: 0 QRS: 68 QRSD: 107 T: -82 QT: 260 QTc: 397 Interpretive Statements ATRIAL FIBRILLATION WITH RAPID VENTRICULAR RESPONSE ST DEVIATION AND MODERATE T-WAVE ABNORMALITY, CONSIDER INFERIOR ISCHEMIA [-0.1+ mV T-WAVE IN II/aVF] Compared to ECG 10/22/2023 18:34:45 T-wave abnormality now present Possible ischemia now present Sinus rhythm no longer present Myocardial infarct finding no longer present Electronically Signed On 10-23-2023 19:29:20 CDT by Andrew Petersen M.D. [id number]
[2023-10-23] MEDS: potassium chloride ER 20 mEq Tablet 40 MEQ PO (17:05)
[2023-10-23] MEDS: metOLazone 5 MG Tablet PO (17:05)
[2023-10-23] MEDS: ALPRAZolam 0.5 mg Tablet 0.25 MG PO (17:11)
[2023-10-23] MEDS: atorvastatin 40 mg Tablet 80 MG PO (17:11)
[2023-10-23] MEDS: piperacillin-tazobactam 3.375 GM in sodium chloride 0.9% (plus) 50 ML IV (17:11)
[2023-10-23] MEDS: amiodarone 150 MG/100 ML PREMIX 400 MG IV (17:13)
[2023-10-23 17:34] LABS: Troponin(5th) Baseline 20 ng/L (0-15)
--- NOTE | 2023-10-23 18:51 | ECG_ITS ---
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 Measurements Intervals [place] Rate: 111 P: 0 [place]: 0 QRS: 68 QRSD: 113 T: -43 QT: 329 QTc: 448 Interpretive Statements ATRIAL FIBRILLATION WITH RAPID VENTRICULAR RESPONSE MODERATE INTRAVENTRICULAR CONDUCTION DELAY [110+ ms QRS DURATION] NONSPECIFIC ST & T-WAVE ABNORMALITY Compared to ECG 10/23/2023 17:01:35 Intraventricular conduction delay now present Possible ischemia no longer present T-wave abnormality still present Electronically Signed On 10-23-2023 19:38:51 CDT by Andrew Petersen M.D. [id number]
[2023-10-23] MEDS: metoprolol tartrate 25 mg Tablet 37.5 MG PO (20:27)
[2023-10-23 21:18] LABS: Troponin 5 2HR 19.85 ng/L (0-15)
[2023-10-23 21:21] LABS: Troponin 5 2HR Delta -0.15 ABS# (0-10)
--- NOTE | 2023-10-23 22:51 | ECG_ITS ---
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 Measurements Intervals [place] Rate: 93 P: 0 [place]: 0 QRS: 65 QRSD: 116 T: 13 QT: 368 QTc: 458 Interpretive Statements ATRIAL FIBRILLATION MODERATE INTRAVENTRICULAR CONDUCTION DELAY [110+ ms QRS DURATION] NONSPECIFIC ST & T-WAVE ABNORMALITY Compared to ECG 10/23/2023 18:24:21 No significant changes Electronically Signed On 10-24-2023 12:31:19 CDT by Casa Baig M.D. [email or web address] [id number]
[2023-10-24] VITALS (45 sets, daily range): BP systolic 107–145; BP diastolic 76–109; PULSE 66–118; RESP 15–30; TEMP 36.5–36.9; O2SAT 83–99; BMI 28.2
[2023-10-24 00:08] LABS: Troponin 5 6HR 17.16 ng/L (0-15)
[2023-10-24 00:09] LABS: Troponin 5 6HR Delta -2.84 ng/L (0-12)
[2023-10-24] MEDS: piperacillin-tazobactam 3.375 GM in sodium chloride 0.9% (plus) 50 ML IV ×3 (01:56→18:20)
[2023-10-24 04:14] LABS: Basophils % 0.1 %; Hematocrit 43.2 % (37-53); Lymphocytes # 0.2 10^3/uL (0.8-4.8); Lymphocytes % 1.1 %; Mean Corpuscular HGB Conc 32.4 g/dL (30-55); Mean Corpuscular Hemoglobin 29.7 pg (27-33); Mean Corpuscular Volume 91.5 fl (82-101); Mean Platelet Volume 10.5 fL (7.4-10.4); Monocytes # 0.7 10^3/uL (0.2-0.9); Monocytes % 4.6 %; Neutrophils # 14.56 10^3/uL (1.8-7.7); Neutrophils % 93.5 %; Nucleated Red Blood Cells % 0 %; Platelet Count 188 10^3/cmm (157-399); Red Blood Count 4.72 10^6/uL (3.85-5.65); Red Cell Distribution Width 15.5 % (12.1-15.1); White Blood Count 15.56 10^3/uL (3.29-11.43)
[2023-10-24 04:19] LABS: Alanine Aminotransferase 52 U/L (0-41); Alkaline Phosphatase 58 U/L (40-130); Anion Gap 14.9 (5-19); Aspartate Amino Transferase 30 U/L (0-40); Blood Urea Nitrogen 34 mg/dL (8-23); Calcium 9.6 mg/dL (8.5-10.5); Carbon Dioxide 38 mmol/L (22-29); Chloride 92 mmol/L (98-107); Creatinine Clr Calc Pharmacy 89.6525; Globulin 2.5 g/dL (1.3-4.6); Glucose 151 mg/dL (65-115); Osmolality Calculated 303 mOsm/kg (285-295); Phosphorus 4.9 mg/dL (2.5-4.5); Potassium 3.9 mmol/L (3.5-5.1); Sodium 141 mmol/L (136-145); Total Bilirubin 1.2 mg/dL (0.15-1.2); Total Protein 6.5 g/dL (6.6-8.7)
[2023-10-24 04:20] LABS: Magnesium 2.1 mg/dL (1.7-2.3)
[2023-10-24 04:26] LABS: ABG PH Result 7.45 (7.35-7.45); Arterial Blood Gas Hematocrit 43.7 % (42-52); Base Excess ABG 16.1 mmol/L (-2.0-2.0); Blood Gas Sample Site Brachial, right; Blood Gas Sample Type Arterial; HCO3 ABG 43.4 mmol/L (22-26); Oxygen Device NC; PO2 ABG 85.6 mmHg (80.0-100.0); PO2 FiO2 Ratio Arterial Blood 0
[2023-10-24 04:32] LABS: NT Pro B Type Natriuretic Pept 578 pg/mL (0-125); Procalcitonin 0.05 ng/mL (0-0.5)
[2023-10-24] MEDS: methylPREDNISolone sod succ 40 mg/mL INJ IVP ×3 (05:34→21:16)
--- NOTE | 2023-10-24 07:00 | XR_ITS ---
WS: [id number] Exam: XR chest 1V portable [id number] Date/Time of Exam: 10/24/2023 7:00 AM Reason For Exam: sob Comparison 10/22/2023. The lungs are fully expanded and clear. Normal cardiomediastinal silhouette. Bony structures are inta ct. No pleural effusion. IMPRESSION: 1. Negative chest. No change.
[2023-10-24] MEDS: budesonide 0.5 mg/2 mL Neb INHALATION ×2 (08:12→20:34)
[2023-10-24] MEDS: ipratropium-albuterol 3 mL Neb INHALATION ×4 (08:12→20:34)
[2023-10-24] MEDS: levETIRAcetam 500 mg Tablet PO ×2 (09:04→18:17)
[2023-10-24] MEDS: metOLazone 5 MG Tablet PO (09:04)
[2023-10-24] MEDS: apixaban 5 mg Tablet PO (09:04)
[2023-10-24] MEDS: amiodarone 200 mg Tablet 400 MG PO ×2 (09:04→18:17)
[2023-10-24] MEDS: FUROsemide 10 mg/mL SDV 4mL 40 MG IVP ×2 (09:05→18:17)
[2023-10-24] MEDS: metoprolol tartrate 25 mg Tablet 37.5 MG PO ×2 (09:06→21:16)
--- NOTE | 2023-10-24 09:30 | CT_ITS ---
WS: [id number] CTA OF THE CHEST WITH PULMONARY EMBOLISM PROTOCOL TECHNIQUE: High-resolution contrast enhanced CTA of the chest with coronal and sagittal reformatted i mages with pulmonary embolism protocol. MIP images are also reviewed. CLINICAL INFORMATION: sob COMPARISON: None. DLP: 437.[address] scans at [facility] use at least one of these dose optimization techniques: automated e xposure control; mA and/or kV adjustment per patient size (includes targeted exams where dose is matc hed to clinical indication); or iterative reconstruction. FINDINGS: Filling defects compatible with pulmonary embolus in the RIGHT lower lobe distal segmental and subsegmental pulmonary arteries. Poor filling of the RIGHT lower lobe branches. Additional filling defects in the RIGHT middle lobe pulmonary artery. Additional suspected distal emboli with poor filling of the distal LEFT lower subsegmental pulmonary arteries posteriorly. Suspected RIGHT heart strain with reflux into the hepatic veins. Paradoxical bowing of the LEFT ventr icle. Normal caliber thoracic aorta. Aortic calcification. No mediastinal or hilar lymphadenopathy. N o axillary lymphadenopathy. Air-fluid level in the stomach. Normal GE junction. Tortuous descending thoracic aorta. Adrenal gland s are normal. Chronic appearing compression deformities in the midthoracic spine similar in appearanc e to the prior chest CT. Subsegmental atelectasis in the lung bases. No focal consolidation or pleural fluid. Few inflammatory opacities in both lower lobes. Partially visualized abdominal endograft. IMPRESSION: 1. Acute pulmonary embolus described above. 2. Evidence of RIGHT heart strain. Notified Timmy Stubbs MD at 10/24/2023 2:15 PM.
[2023-10-24] MEDS: azithromycin 250 mg Tablet PO (12:14)
[2023-10-24] MEDS: iohexol 350 mg/mL 500 mL Btl (per mL) IV (13:20)
--- NOTE | 2023-10-24 14:04 | P.PN_ITS ---
Subjective 2 Subjective: Patient was seen this morning, his A-fib with RVR has improved, currently heart rates in the 70s, atrial fibrillation, he tolerated BiPAP throughout the night, currently on 4-5 L, no evidence of respiratory distress he feels better, very to yesterday afternoon, Vitals/I&O/Wt Last Vital Signs Temp 97.8 F 10/24/23 11:38 Pulse 72 10/24/23 11:38 Resp 24 H 10/24/23 11:38 BP 122/91 10/24/23 11:38 Pulse Ox 93 10/24/23 11:38 O2 Del Method Nasal Cannula 10/24/23 11:38 O2 Flow Rate 6 10/24/23 11:25 FiO2 60 10/24/23 08:00 10/23/23 10/24/23 10/24/23 22:59 06:59 14:59 Intake Total 200 / 680 250 / 930 410 / 410 Output Total 400 / 1300 550 / 1850 Balance -200 / -620 -300 / -920 410 / 410 Weight last 48 hrs Weight 86.636 kg Weight 86.636 kg Physical Exam 2 Const: COMMON NORMALS: no acute distress and patient oriented x3 Resp: COMMON NORMALS: normal respiratory effort, No retractions and No use of accessory muscles AUSCULTATION: crackles and wheezes Cardio: COMMON NORMALS: regular rate, regular rhythm, S1 normal heart sound present and S2 normal heart sound present RATE: regular rate RHYTHM: r egular rhythm HEART SOUNDS: S1 normal heart sound present and S2 normal heart sound present GI: COMMON NORMALS: Normal to inspection, nondistended, normoactive bowel sounds present and non-tender Extremity: NARRATIVE EXTREMITY EXAM: 1+ pitting edema Neuro: COMMON NORMALS: patient oriented x3 Psych: COMMON NORMALS: mental status grossly normal Urinary Catheter Management: Hurd: Cath Placed During This Visit: yes Reason for Continuing Indwelling Catheter: Accurate Measurement of Urinary Output in Critically Ill Patients Urinary Catheter Date of Insertion: 10/23/23 Urinary Catheter Time of Insertion: 17:28 Data 10/24/23 03:24 10/24/23 03:24 A&P Assessment and plan (1) Acute exacerbation of chronic obstructive pulmonary disease: (2) Atrial fibrillation with RVR: (3) Peripheral arterial disease: (4) Femoral artery aneurysm, bilateral: (5) DA (obstructive sleep apnea): (6) CHF exacerbation: (7) Acute hypoxic respiratory failure: Plan Acute hypoxic hypercarbic respiratory failure ? Episode of respiratory distress yesterday secondary to acute flash pulm edema, CHF, fluid overload ? Secondary to COPD exacerbation, ? Secondary to CHF fluid overload, A-fib with RVR ? Plan ? BiPAP as needed during the day, scheduled during the night ? Solu-Medrol 40 mg IV every 8 hours ? Antibiotic coverage broadened to Zosyn ? Budesonide, ? DuoNeb ? Fluid overloaded with crackles on exam the 2 doses of IV Lasix 40 mg IV today, with metolazone ? On amiodarone drip, transition to p.o. amiodarone ?continue p.o. metoprolol 25 mg daily ?continue Eliquis ? Follow sputum culture, respiratory viral panel, blood culture, so far no growth ? CT angiogram of the chest ordered ? Full code ? Eliquis for DVT prophylaxis Plan for today for acute hypoxic respiratory failure with evidence of acute respiratory distress yesterday significantly improved, continue BiPAP as needed during the day scheduled during the night, continue Solu-Medrol and Zosyn, continue IV diuresis IV, CT angiogram the chest Attestations 2 Medical Necessity Statement*: Patient requires hospitalization for acute hypoxic hypercarbic respiratory failure secondary to A-fib with RVR, acute flash pulm edema, CHF, COPD, pneumonia Diagnoses Acute exacerbation of chronic obstructive pulmonary disease J44.1 Atrial fibrillation with RVR I48.91 Peripheral arterial disease I73.9 Femoral artery aneurysm, bilateral I72.4 DA (obstructive sleep apnea) G47.33 CHF exacerbation I50.9 Acute hypoxic respiratory failure J96.01
[2023-10-24] MEDS: pantoprazole 40 mg SDV IVP (14:51)
[2023-10-24 16:08] LABS: Anion Gap 11.7 (5-19); Blood Urea Nitrogen 36 mg/dL (8-23); Calcium 9.8 mg/dL (8.5-10.5); Chloride 86 mmol/L (98-107); Creatinine Clr Calc Pharmacy 89.6525; Glucose 140 mg/dL (65-115); Osmolality Calculated 299 mOsm/kg (285-295); Potassium 3.7 mmol/L (3.5-5.1); Sodium 139 mmol/L (136-145)
[2023-10-24 16:11] LABS: Carbon Dioxide 45 mmol/L (22-29)
[2023-10-24] MEDS: heparin drip 25,000 UNIT/500 ML PREMIX 24.2600000000000016 UNIT IV (18:16)
[2023-10-24] MEDS: atorvastatin 40 mg Tablet 80 MG PO (18:17)
[2023-10-24] MEDS: ALPRAZolam 0.5 mg Tablet 0.25 MG PO (21:16)
[2023-10-25] VITALS (26 sets, daily range): BP systolic 94–129; BP diastolic 51–88; PULSE 72–99; RESP 12–30; TEMP 36.4–36.7; O2SAT 92–96; BMI 28.2
[2023-10-25] MEDS: piperacillin-tazobactam 3.375 GM in sodium chloride 0.9% (plus) 50 ML IV ×3 (01:32→18:19)
[2023-10-25 03:55] LABS: Basophils % 0.1 %; Hematocrit 42.8 % (37-53); Lymphocytes # 0.2 10^3/uL (0.8-4.8); Lymphocytes % 1.2 %; Mean Corpuscular HGB Conc 32.7 g/dL (30-55); Mean Corpuscular Hemoglobin 29.1 pg (27-33); Monocytes # 0.8 10^3/uL (0.2-0.9); Monocytes % 5.1 %; Neutrophils # 13.52 10^3/uL (1.8-7.7); Neutrophils % 92.8 %; Nucleated Red Blood Cells % 0 %; Platelet Count 194 10^3/cmm (157-399); Red Blood Count 4.81 10^6/uL (3.85-5.65); Red Cell Distribution Width 15.1 % (12.1-15.1); White Blood Count 14.58 10^3/uL (3.29-11.43)
[2023-10-25 04:34] LABS: Partial Thromboplastin Time > 250.0 SECONDS (23.9-36.7)
[2023-10-25] MEDS: methylPREDNISolone sod succ 40 mg/mL INJ IVP (05:40)
[2023-10-25] MEDS: budesonide 0.5 mg/2 mL Neb INHALATION ×2 (07:44→20:49)
[2023-10-25] MEDS: ipratropium-albuterol 3 mL Neb INHALATION ×4 (07:44→20:49)
[2023-10-25 07:52] LABS: Partial Thromboplastin Time 74.3 SECONDS (23.9-36.7)
[2023-10-25] MEDS: amiodarone 200 mg Tablet 400 MG PO ×2 (08:26→18:19)
[2023-10-25] MEDS: metoprolol tartrate 25 mg Tablet 37.5 MG PO ×2 (08:26→20:33)
[2023-10-25] MEDS: levETIRAcetam 500 mg Tablet PO ×2 (08:26→18:20)
[2023-10-25] MEDS: potassium chloride ER 20 mEq Tablet PO (09:38)
[2023-10-25] MEDS: FUROsemide 10 mg/mL SDV 4mL 40 MG IVP (09:38)
--- NOTE | 2023-10-25 09:42 | PC.SOCIAL ---
IMM Update Pg. 2 of [facility] updated and reviewed with patient who verbalized understanding, copy provided.
[2023-10-25] MEDS: azithromycin 250 mg Tablet PO (11:50)
--- NOTE | 2023-10-25 13:18 | P.PN_ITS ---
Subjective 2 Subjective: Patient was seen this morning, denies any fevers, no chills, he is on nasal cannula, we discussed his pulmonary embolism, unfortunately this happened hold anticoagulation, on discharge we will switch him over to potentially Xarelto or Pradaxa he is not very keen on being on Coumadin, but I would think that this was a failure of anticoagulation, he continues to diurese well he has been -5 L, afebrile he tells me that at home he ambulates from the bed to a chair, will continue to have PT OT work with him, family members at bedside spoke to them in detail Vitals/I&O/Wt Last Vital Signs Temp 97.9 F 10/25/23 12:00 Pulse 76 10/25/23 12:00 Resp 13 10/25/23 12:00 BP 101/77 10/25/23 12:00 Pulse Ox 95 10/25/23 12:00 O2 Del Method Nasal Cannula 10/25/23 12:00 O2 Flow Rate 5 10/25/23 11:14 FiO2 60 10/24/23 08:00 10/24/23 10/25/23 10/25/23 22:59 06:59 14:59 Intake Total 50 / 460 50 / 510 240 / 240 Output Total 2000 / 4000 375 / 4375 800 / 800 Balance -1950 / -3540 -325 / -3865 -560 / -560 Weight last 48 hrs Weight 86.636 kg Weight 86.636 kg Physical Exam 2 Const: COMMON NORMALS: no acute distress and patient oriented x3 Resp: COMMON NORMALS: normal respiratory effort, No retractions and No use of accessory muscles AUSCULTATION: crackles and wheezes Cardio: COMMON NORMALS: regular rate, regular rhythm, S1 normal heart sound present and S2 normal heart sound present RATE: regular rate RHYTHM: r egular rhythm HEART SOUNDS: S1 normal heart sound present and S2 normal heart sound present GI: COMMON NORMALS: Normal to inspection, nondistended, normoactive bowel sounds present and non-tender Extremity: COMMON NORMALS: no pedal edema Neuro: COMMON NORMALS: patient oriented x3 Psych: COMMON NORMALS: mental status grossly normal Urinary Catheter Management: Hurd: Cath Placed During This Visit: yes Reason for Continuing Indwelling Catheter: Accurate Measurement of Urinary Output in Critically Ill Patients Urinary Catheter Date of Insertion: 10/23/23 Urinary Catheter Time of Insertion: 17:28 Data 10/25/23 03:12 10/24/23 15:27 Micro: Microbiology 10/20/23 12:56 Blood Culture - Final Blood NO GROWTH AFTER 5 DAYS 10/20/23 12:50 Blood Culture - Final Blood NO GROWTH AFTER 5 DAYS A&P Assessment and plan (1) Acute exacerbation of chronic obstructive pulmonary disease: (2) Atrial fibrillation with RVR: (3) Peripheral arterial disease: (4) Femoral artery aneurysm, bilateral: (5) DA (obstructive sleep apnea): (6) CHF exacerbation: (7) Acute hypoxic respiratory failure: (8) Bilateral pulmonary embolism: Plan Acute hypoxic hypercarbic respiratory failure ? Episode of respiratory distress yesterday secondary to acute flash pulm edema, CHF, fluid overload ? Secondary to COPD exacerbation, ? Secondary to CHF fluid overload, A-fib with RVR -Now with bilateral pulmonary embolism, with right heart strain, failure of Eliquis therapy FINDINGS: Filling defects compatible with pulmonary embolus in the RIGHT lower lobe distal segmental and subsegmental pulmonary arteries. Poor filling of the RIGHT lower lobe branches. Additional filling defects in the RIGHT middle lobe pulmonary artery. Additional suspected distal emboli with poor filling of the distal LEFT lower subsegmental pulmonary arteries posteriorly. Suspected RIGHT heart strain with reflux into the hepatic veins. Paradoxical bowing of the LEFT ventricle. Normal caliber thoracic aorta. Aortic calcification. No mediastinal or hilar lymphadenopathy. No axillary lymphadenopathy. ? Plan ? BiPAP as needed during the day, scheduled during the night ? Solu-Medrol 40 mg IV every 8 hours, will de-escalate to prednisone 40 mg daily ? Antibiotic coverage broadened to Zosyn ? Budesonide, ? DuoNeb ? Fluid overloaded, CHF exacerbation, -7 L so far 1 dose IV Lasix today ? transition to p.o. amiodarone ?continue p.o. metoprolol 25 mg daily ?Bilateral PEs on Eliquis, failure of anticoagulant therapy, switch to heparin drip, will need anticoagulant therapy for at least 48 hours as inpatient ? Follow sputum culture, respiratory viral panel, blood culture, so far no growth ? Full code ?Heparin drip for DVT prophylaxis Plan for today for up out of bed, PT OT, de-escalate prednisone 40 mg daily, continue heparin drip for bilateral PEs with failure of anticoagulant therapy, continue antibiotics continue IV diuresis -7 L so far monitor creatinine monitor potassium monitor hemodynamics Attestations 2 Medical Necessity Statement*: Patient requires hospitalization for failure of anticoagulant therapy, now with bilateral PEs, right heart strain, requiring IV heparin inpatient monitoring CHF exacerbation fluid overload requiring IV diuresis -7 L so far, and High MDM includes number and complexity of problems actively addressed during encounter, amount and/or complexity of data reviewed/ordered and described risk of complication, morbidity or mortality of management as documented Diagnoses Acute exacerbation of chronic obstructive pulmonary disease J44.1 Atrial fibrillation with RVR I48.91 Peripheral arterial disease I73.9 Femoral artery aneurysm, bilateral I72.4 DA (obstructive sleep apnea) G47.33 CHF exacerbation I50.9 Acute hypoxic respiratory failure J96.01 Bilateral pulmonary embolism I26.99
[2023-10-25 15:17] LABS: Partial Thromboplastin Time 199.7 SECONDS (23.9-36.7)
[2023-10-25] MEDS: atorvastatin 40 mg Tablet 80 MG PO (18:19)
[2023-10-25] MEDS: pantoprazole 40 mg SDV IVP (18:20)
[2023-10-25 18:54] LABS: Partial Thromboplastin Time 59.8 SECONDS (23.9-36.7)
[2023-10-25] MEDS: heparin drip 25,000 UNIT/500 ML PREMIX 24.2600000000000016 UNIT IV (22:17)
[2023-10-26] VITALS (15 sets, daily range): BP systolic 101–113; BP diastolic 77–89; PULSE 74–100; RESP 15–20; TEMP 36.4–36.8; O2SAT 86–94
[2023-10-26] MEDS: piperacillin-tazobactam 3.375 GM in sodium chloride 0.9% (plus) 50 ML IV ×3 (01:38→16:56)
[2023-10-26 01:44] LABS: Basophils % 0.1 %; Eosinophils % 0.1 %; Hematocrit 45.1 % (37-53); Lymphocytes # 0.4 10^3/uL (0.8-4.8); Lymphocytes % 2.1 %; Mean Corpuscular HGB Conc 33.3 g/dL (30-55); Mean Corpuscular Hemoglobin 29.6 pg (27-33); Mean Corpuscular Volume 89.1 fl (82-101); Mean Platelet Volume 10.9 fL (7.4-10.4); Monocytes # 1.6 10^3/uL (0.2-0.9); Monocytes % 8.7 %; Neutrophils # 16.15 10^3/uL (1.8-7.7); Neutrophils % 88.3 %; Nucleated Red Blood Cells % 0 %; Platelet Count 183 10^3/cmm (157-399); Red Blood Count 5.06 10^6/uL (3.85-5.65); Red Cell Distribution Width 14.8 % (12.1-15.1); White Blood Count 18.29 10^3/uL (3.29-11.43)
[2023-10-26 02:16] LABS: Partial Thromboplastin Time 157.8 SECONDS (23.9-36.7)
[2023-10-26 04:19] LABS: Partial Thromboplastin Time 86.7 SECONDS (23.9-36.7)
[2023-10-26] MEDS: ipratropium-albuterol 3 mL Neb INHALATION ×4 (08:44→20:46)
[2023-10-26] MEDS: budesonide 0.5 mg/2 mL Neb INHALATION ×2 (08:44→20:46)
[2023-10-26] MEDS: rivaroxaban 10 mg Tablet 15 MG PO (09:15)
[2023-10-26] MEDS: predniSONE 20 mg Tablet 40 MG PO (09:15)
[2023-10-26] MEDS: potassium chloride ER 20 mEq Tablet PO ×2 (09:16→15:57)
[2023-10-26] MEDS: levETIRAcetam 500 mg Tablet PO ×2 (09:16→16:59)
--- NOTE | 2023-10-26 09:44 | USCV_ITS ---
Kimo Hernandez Age: 73 Gender: M : 1950 Exam Date: 10/26/2023 10:34 Ordering Phys: Timmy Stubbs MD Technologist: Exam Location: [facility] [place]_ Indication: cold extremity hx of bilat stents and bi pass Risk Factors: Previous Vascular Surgery: RIGHT LEFT BP: 100.0 / 78.00 BP: 100.0/ 75.00 0 0 Waveform Velocity (cm/s) Velocity (cm/s) Waveform Biphasic 20.0 Iliac Prox 22.0 Biphasic Biphasic 18.0 Iliac Mid 20.0 Biphasic Biphasic Iliac Distal Biphasic 18.0 22.0 N/A PLUMBER SUPERVISOR 21.0 Biphasic N/A SFA Prox 14.0 Biphasic Triphasic SFA Mid 21.0 Biphasic Triphasic SFA Dist 20.0 Biphasic N/A POP N/A Biphasic 36.0 SPEECH LANGUAGE PATHOLOGY ASSISTANT 53.0 Biphasic Biphasic 29.0 DPA 53.0 Biphasic 0.8 LUCRECIA 1.0 FINDINGS Rt upper thigh bi pass is normal and lt lower leg bypass is normal Mild to moderate diffuse plaques in the iliac and femoral arteries bilaterally. No flow was detected in the [place] popliteal artery. Patent femoral-popliteal ?bypass Patent infrapopliteal vessels Resting LUCRECIA 0.8 on the right side and 1.0 on the left side CONCLUSIONS 1. Abnormal resting LUCRECIA on the right side, suggestive of mild to moderate peripheral artery disease. Features of total occlusion of the popliteal artery with patent femoral-popliteal? Bypass. 2. Normal resting LUCRECIA on the left side. Features of total occlusion of the popliteal artery with patent femoral-popliteal? bypass. Comparison with the previous study from 08/15/2023 is difficult because of the difference in the technical quality Dr Andrew Petersen MD [facility] (Electronically Signed) Final Date: 26 October 2023 12:21 S
[2023-10-26 09:58] LABS: Anion Gap 10.9 (5-19); Blood Urea Nitrogen 49 mg/dL (8-23); Calcium 9.1 mg/dL (8.5-10.5); Chloride 81 mmol/L (98-107); Creatinine Clr Calc Pharmacy 87.6686; Glucose 102 mg/dL (65-115); Osmolality Calculated 289 mOsm/kg (285-295); Sodium 133 mmol/L (136-145)
[2023-10-26] MEDS: amiodarone 200 mg Tablet 400 MG PO ×2 (10:03→17:00)
[2023-10-26 10:12] LABS: Potassium 2.9 mmol/L (3.5-5.1)
[2023-10-26 10:14] LABS: Carbon Dioxide 44 mmol/L (22-29)
[2023-10-26 10:51] LABS: Partial Thromboplastin Time 90.8 SECONDS (23.9-36.7)
[2023-10-26] MEDS: azithromycin 250 mg Tablet PO (11:35)
--- NOTE | 2023-10-26 15:30 | P.PN_ITS ---
Subjective 2 Subjective: Patient was seen this morning, patient's is at bedside, he alert oriented x 4, following all commands, resting comfortably on 4 L, denies any chest pain, shortness of breath is appropriate was able to sit in the chair yesterday, we had a detailed discussion today throughout the last few days he has developed more mottling in bilateral lower extremities, his left blue toe looks more blue over the last few days a bit more dusky today, he has a extensive history of peripheral vascular disease, has required bilateral bypasses in bilateral extremities, has required multiple stents in the bilateral extremities, he tells me that intermittently at times his legs do become mottled, his toe intermittently does become more blue, he has been told in the past that he might lose lose that toe at some point in due to limb ischemia, the last time he saw his vascular surgeon he was pretty stable, currently denies any pain in his lower extremities, bilateral DP PT pulses have been present for the last few days continue to be present, my concern today is that the blue toe looks more dusky today, and specifically on the left continues to have more mottling on the left, both extremities appear to be cool, will perform arterial ultrasound, -Spoke to nursing staff, wrapped bilater al extremities, keep them warm, continue to monitor closely is on anticoagulant therapy, continue Doppler pulses FINDINGS Rt upper thigh bi pass is normal and lt lower leg bypass is normal Mild to moderate diffuse plaques in the iliac and femoral arteries bilaterally. No flow was detected in the samish popliteal artery. Patent femoral-popliteal ?bypass Patent infrapopliteal vessels Resting LUCRECIA 0.8 on the right side and 1.0 on the left side CONCLUSIONS 1. Abnormal resting LUCRECIA on the right side, suggestive of mild to moderate peripheral artery disease. Features of total occlusion of the popliteal artery with patent femoral-popliteal? Bypass. 2. Normal resting LUCRECIA on the left side. Features of total occlusion of the popliteal artery with patent femoral-popliteal? bypass. Comparison with the previous study from 08/15/2023 is difficult because of the difference in the technical quality -Dr. 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, patent right ROD STRAIGHTENER to trunk bypass, patent left as they tip trunk bypass, patent right TP trunk stent, chronic occlusion of the right SFA to popliteal, left SFA to popliteal, RBI elevated due to medial calcinosis, on the left she has aneurysmal dilatation it extends into SFA measuring 4 x 4 cm, sluggish diminished flow throughout, moderate arthrosclerosis throughout patent vessels accessible to study -I went back and spoke to patient this a fternoon, he examined his left lower extremity, continues to have palpable pulses bilaterally, although diminished, continues to have mottling bilateral extremities more pronounced on the left, up to the level of bilateral knees, more pronounced on the left, with bluish great toe on the left blue toe syndrome discussed with patient, -I was honest with the patient and his w vimal that patient might need to be transferred to tertiary level center given his complicated case, and that he is at increased risk of developing hypercoagulable event, as he developed a PE while he was on Eliquis, failure of anticoagulation, initially he was very hesitant about being put on Coumadin and Lovenox, wanted to try another anticoagulant like Xarelto or Pradaxa at full dose however after detailed discussion and my worries about further hypercoagulable events, agreed to Lovenox full dose, after discussing risk and benefits, he voiced understanding all questions answered, agreed to proceed -Will continue medical management for no w, continue following pulses closely wrapped bilateral extremities continue anticoagulant antiplatelet therapy, statin, will consult cardiology, however I did tell family that given his complicated nature he might need to be transferred if acutely needed ? Spoke to Dr. Jean-Baptiste, about the case, will consult Vitals/I&O/Wt Last Vital Signs Temp 98.3 F 10/26/23 11:21 Pulse 91 10/26/23 12:00 Resp 18 10/26/23 12:00 BP 113/89 10/26/23 11:21 Pulse Ox 92 10/26/23 12:00 O2 Del Method Nasal Cannula 10/26/23 12:00 O2 Flow Rate 5 10/26/23 12:00 FiO2 60 10/24/23 08:00 10/26/23 10/26/23 10/26/23 06:59 14:59 22:59 Intake Total 590 / 1550.000 410 / 410 Output Total 300 / 2300 450 / 450 Balance 290 / -750.000 -40 / -40 Weight last 48 hrs Weight 82.372 kg Weight 86.636 kg Physical Exam 2 Const: COMMON NORMALS: no acute distress and patient oriented x3 Resp: COMMON NORMALS: normal respiratory effort, No retractions, No use of accessory muscles and clear to auscultation bilaterally AUSCULTATION: clear to auscultation bilaterally Cardio: COMMON NORMALS: regular rate, regular rhythm, S1 normal heart sound present and S2 normal heart sound present RATE: regular rate RHYTHM: r egular rhythm HEART SOUNDS: S1 normal heart sound present and S2 normal heart sound present GI: COMMON NORMALS: Normal to inspection, nondistended, normoactive bowel sounds present and non-tender Extremity: COMMON NORMALS: no pedal edema Neuro: COMMON NORMALS: patient oriented x3 Psych: COMMON NORMALS: mental status grossly normal Urinary Catheter Management: Hurd: Cath Placed During This Visit: yes Reason for Continuing Indwelling Catheter: Accurate Measurement of Urinary Output in Critically Ill Patients Urinary Catheter Date of Insertion: 10/23/23 Urinary Catheter Time of Insertion: 17:28 Data 10/26/23 01:21 10/26/23 03:44 Micro: Microbiology 10/20/23 12:56 Blood Culture - Final Blood NO GROWTH AFTER 5 DAYS 10/20/23 12:50 Blood Culture - Final Blood NO GROWTH AFTER 5 DAYS A&P Assessment and plan (1) Acute exacerbation of chronic obstructive pulmonary disease: (2) Atrial fibrillation with RVR: (3) Peripheral arterial disease: (4) Femoral artery aneurysm, bilateral: (5) DA (obstructive sleep apnea): (6) CHF exacerbation: (7) Acute hypoxic respiratory failure: (8) Bilateral pulmonary embolism: (9) Critical limb ischemia of both lower extremities: (10) Blue toe syndrome of left lower extremity: Plan Acute hypoxic hypercarbic respiratory failure ? Episode of respiratory distress yesterday secondary to acute flash pulm edema, CHF, fluid overload ? Secondary to COPD exacerbation, ? Secondary to CHF fluid overload, A-fib with RVR -Now with bilateral pulmonary embolism, with right heart strain, failure of Eliquis therapy FINDINGS: Filling defects compatible with pulmonary embolus in the RIGHT lower lobe distal segmental and subsegmental pulmonary arteries. Poor filling of the RIGHT lower lobe branches. Additional filling defects in the RIGHT middle lobe pulmonary artery. Additional suspected distal emboli with poor filling of the distal LEFT lower subsegmental pulmonary arteries posteriorly. Suspected RIGHT heart strain with reflux into the hepatic veins. Paradoxical bowing of the LEFT ventricle. Normal caliber thoracic aorta. Aortic calcification. No mediastinal or hilar lymphadenopathy. No axillary lymphadenopathy. ? Plan ? BiPAP as needed during the day, scheduled during the night ? prednisone 40 mg daily ? Antibiotic coverage broadened to Zosyn ? Budesonide, ? DuoNeb ? Fluid overloaded, CHF exacerbation, -7 L ? transition to p.o. amiodarone ?continue p.o. metoprolol 25 mg daily ?Bilateral PEs on Eliquis, failure of anticoagulant therapy, switch to heparin drip, will need anticoagulant therapy for at least 48 hours as inpatient, completed, switch to Lovenox therapeutic ? Follow sputum culture, respiratory viral panel, blood culture, so far no growth ? Full code ?lovenox for DVT prophylaxis Acute on chronic limb ischemia, blue toe synsrome FINDINGS Rt upper thigh bi pass is normal and lt lower leg bypass is normal Mild to moderate diffuse plaques in the iliac and femoral arteries bilaterally. No flow was detected in the samish popliteal artery. Patent femoral-popliteal ?bypass Patent infrapopliteal vessels Resting LUCRECIA 0.8 on the right side and 1.0 on the left side CONCLUSIONS 1. Abnormal resting LUCRECIA on the right side, suggestive of mild to moderate peripheral artery disease. Features of total occlusion of the popliteal artery with patent femoral-popliteal? Bypass. 2. Normal resting LUCRECIA on the left side. Features of total occlusion of the popliteal artery with patent femoral-popliteal? bypass. Comparison with the previous study from 08/15/2023 is difficult because of the difference in the technical quality -Dr. 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, patent right ROD STRAIGHTENER to trunk bypass, patent left as they tip trunk bypass, patent right TP trunk stent, chronic occlusion of the right SFA to popliteal, left SFA to popliteal, RBI elevated due to medial calcinosis, on the left she has aneurysmal dilatation it extends into SFA measuring 4 x 4 cm, sluggish diminished flow throughout, moderate arthrosclerosis throughout patent vessels accessible to study -Patient is in hypercoagulable state, given that he developed a PE on anticoagulant therapy -Continue aspirin, statin, Lovenox Plan for today for up out of bed, PT OT, de-escalate prednisone 40 mg daily, continue heparin drip for bilateral PEs with failure of anticoagulant therapy, continue antibiotics continue IV diuresis -7 L so far monitor creatinine monitor potassium monitor hemodynamics Attestations 2 Medical Necessity Statement*: Patient requires hospitalization due to bilateral PEs, failure of anticoagulant therapy requiring anticoagulant therapy as inpatient, with respiratory failure with pneumonia with A-fib, with fluid overload, now with concerns with acute on chronic limb ischemia, blue toe syndrome Diagnoses Acute exacerbation of chronic obstructive pulmonary disease J44.1 Atrial fibrillation with RVR I48.91 Peripheral arterial disease I73.9 Femoral artery aneurysm, bilateral I72.4 DA (obstructive sleep apnea) G47.33 CHF exacerbation I50.9 Acute hypoxic respiratory failure J96.01 Bilateral pulmonary embolism I26.99 Critical limb ischemia of both lower extremities I70.223 Blue toe syndrome of left lower extremity I75.022
[2023-10-26] MEDS: aspirin 81 mg EC Tablet PO (15:57)
--- NOTE | 2023-10-26 16:45 | P.CONIM_ITS ---
Providers/Reason For Consult 2 Consulting Physician/Specialty*: Cardiovascular medicine Reason for Consult*: Peripheral arterial disease Requesting Physician: Hospitalist Attending Physician: Timmy Stubbs MD Primary Care Provider: Jackie Kulkarni MD History of Present Illness History of Present Illness Kimo Hernandez is a 73 year old male who hails from [place]. He moved down here a while back in order to be closer to his daughter who is an employee here in the hospital. He is a chronically ill man with a number of quite serious medical problems. Since he has been here he has been in and out of the emergency room and in and out of the hospital on multiple occasions. His complex history includes peripheral arterial disease. He has had lower extremity aneurysms in multiple locations in the iliacs, superficial femoral and popliteal arteries. He has apparently had multiple interventions with stents. The information in the chart is confusing as they do not specifically delineate everything that he has had done. Some records indicate multiple stents and others indicate bypasses. I am not certain exactly what has been done nor is he. He had some kind of peripheral arterial procedure done by a surgeon at the [facility] several years ago. More recently a couple years ago he had what sounds like a right femoral-popliteal bypass done by vascular surgeon at [facility] in [place]. He has chronic mottling of his skin especially in the anterior aspect of his knees. His legs are always cool. His legs do not hurt however when he is at rest. His other complex illnesses include hypertension, sleep apnea, seizure disorder, history of atrial fibrillation, COPD, AAA status post endovascular repair, tobacco abuse history and an anticoagulant. He is chronically on Eliquis. He came into the hospital nearly a week ago with shortness of breath, cough, palpitations and was found to be in respiratory failure, atrial fibrillation and was suspicious of having pneumonia and heart failure. He was placed on empirical therapy of steroids, antibiotics and intravenous diuresis. He was still struggling over the first 3 days of the hospitalization. On the , 3 days ago he was still tachycardic with atrial fibrillation. Cardizem was stopped and amiodarone was added. A CT scan of his chest was done and showed bilateral pulmonary emboli. This was thought to be a failure of Eliquis and so it was held and he was started on intravenous heparin. Over the last 2 or 3 days he is feet have become slightly mottled at the surface of the skin. There is a purpleish discoloration of the inner aspect of his feet worse a little on the left and worse at the left great toe. He tells me that prior to the procedure being done in [place] several years ago his left great toe was black and he thought that he might lose it. As a result of the duskiness of his feet hospitalist ordered an ultrasound of his lower extremities. This revealed normal resting ankle-brachial indices bilaterally. The duplex portion of the scan was not very good due to his previous severe peripheral arterial disease.. He had an abdominal aortogram with runoff in August of this year on the sixth. It reveals patency of the stent graft and his abdominal aorta. It suggests that there is a left common iliac artery graft to the left internal iliac artery. I have not ever seen a graft constructed in this fashion but it says it is patent. He has thrombosed aneurysms in the left superficial femoral artery and popliteal arteries. It also said that both bilateral femoral-popliteal grafts are patent. No comment was made about previously placed stents or patency. I do not know where the stents are. The patient told me that he has stents in his legs but does not know any details. He had an echo done which shows an ejection fraction of 65%. Interestingly, he does not complain of any pain in his legs. He tells me that the mottling that is present on the anterior aspect of his legs at the level of the knees is chronic. He says that his feet are not typically this purple but on occasion he may notice purple discoloration of his feet. The nurses were able to get pulses with the Doppler. He also said that at the time he had critical limb ischemia and his toe turned black that he had significant pain in the toe and in his foot. He does not have that at this time. His legs are cold however but he says that that is not anything unusual. Review of Systems 2 Narrative: Review of systems include shortness of breath which is chronic and seems to be worse now. Medications/Allergies Home Medications Medication Instructions Recorded Confirmed Last Taken Type albuterol sulfate 90 mcg/actuation 1 inh inhalation QID PRN Shortness 10/09/20 10/20/23 02/20/23 History aerosol inhaler (ProAir HFA) Of Breath apixaban 5 mg tablet 5 mg PO BID 10/09/20 10/20/23 10/20/23 History cholecalciferol (vitamin D3) 25 25 mcg PO DAILY ##0 10/26/20 10/20/23 10/20/23 History mcg (1,000 unit) capsule (Vitamin D3) levetiracetam 500 mg tablet 500 mg PO BID 02/21/23 10/20/23 10/20/23 History rosuvastatin 40 mg tablet 40 mg PO QPM 02/21/23 10/20/23 10/19/23 History diltiazem HCl 180 mg 180 mg PO DAILY 06/04/23 10/20/23 10/20/23 History capsule,extended release 24 hr prednisolone 5 mg tablet 5 mg PO DAILY #30 tabs 06/30/23 10/20/23 10/20/23 Rx arformoterol 15 mcg/2 mL solution 2 ml inhalation BID #120 mL 08/02/23 10/20/23 10/20/23 Rx for nebulization budesonide 0.5 mg/2 mL suspension 0.5 mg (2 mL) inhalation BID #120 08/02/23 10/20/23 10/20/23 Rx for nebulization mL guaifenesin 600 mg tablet, 600 mg PO BID PRN congestion #60 08/02/23 10/20/23 10/20/23 Rx extended release 12 hr (Mucinex) tabs tiotropium bromide 1.25 2 puff inhalation DAILY #4 grams 08/02/23 10/20/23 10/20/23 Rx mcg/actuation mist for inhalation (Spiriva Respimat) furosemide 20 mg tablet (Lasix) 20 mg PO DAILY #60 tabs 09/08/23 10/20/23 10/20/23 Rx potassium chloride 20 mEq 10 meq (1/2 x 20 mEq) PO DAILY #90 09/08/23 10/20/23 10/20/23 Rx tablet,extended release tabs albuterol sulfate 0.63 mg/3 mL 0.63 mg (3 mL) inhalation Q6H #90 10/20/23 10/20/23 10/20/23 Rx solution for nebulization mL doxycycline hyclate 100 mg tablet 100 mg PO BID #10 tabs 10/20/23 10/20/23 Unknown Rx Allergies Allergy/AdvReac Type Severity Reaction Status Date / Time No Known Allergies Allergy Verified 10/20/23 10:01 Current Medications Generic Name Dose Route Start Last Admin Trade Name Ricardoq PRN Reason Stop Dose Admin Albuterol/Ipratropium 3 ml 10/20/23 16:00 10/26/23 16:41 Ipratropium-Albuterol 3 Ml Neb INHALATION 3 ml QID.RESPIRATORY JANE Administration Alprazolam 0.25 mg 10/23/23 16:55 10/24/23 21:16 Alprazolam 0.5 Mg Tablet PO 0.25 mg TID PRN Administration ANXIETY Amiodarone HCl 400 mg 10/24/23 09:00 10/26/23 10:03 Amiodarone 200 Mg Tablet PO 400 mg BID JANE Administration Aspirin 81 mg 10/26/23 15:40 10/26/23 15:57 Aspirin 81 Mg Ec Tablet PO 81 mg DAILY JANE Administration Atorvastatin Calcium 80 mg 10/20/23 18:00 10/25/23 18:19 Atorvastatin 40 Mg Tablet PO 80 mg QPM JANE Administration Budesonide 0.5 mg 10/20/23 20:00 10/26/23 08:44 Budesonide 0.5 Mg/2 Ml Neb INHALATION 0.5 mg BID.RESPIRATORY JANE Administration Piperacillin Sod/Tazobactam 50 mls @ 12.5 mls/hr 10/23/23 17:00 10/26/23 13:20 Sod 3.375 gm/ Sodium Chloride IV Infused Q8H JANE Infusion Protocol As Directed Levetiracetam 500 mg 10/20/23 18:00 10/26/23 09:16 Levetiracetam 500 Mg Tablet PO 500 mg BID JANE Administration Metoprolol Tartrate 37.5 mg 10/23/23 21:00 10/26/23 10:29 Metoprolol Tartrate 25 Mg Tablet PO Not Given BID@0900,2100 JANE Pantoprazole Sodium 40 mg 10/20/23 14:46 10/25/23 18:20 Pantoprazole 40 Mg Sdv IVP 40 mg Q24H JANE Administration Potassium Chloride 20 meq 10/25/23 09:00 10/26/23 09:16 Potassium Chloride Er 20 Meq Tablet PO 20 meq DAILY JAEN Administration Prednisone 40 mg 10/26/23 09:00 10/26/23 09:15 Prednisone 20 Mg Tablet PO 40 mg DAILY JANE Administration PFSH Acute 2 PFSH: Medical History Peripheral arterial disease Benign essential HTN Iliac artery aneurysm, bilateral DA (obstructive sleep apnea) Hx of seizure disorder Depression Dyspnea on exertion Popliteal artery aneurysm Spinal stenosis Tinnitus Sleep apnea in adult A-fib COPD (chronic obstructive pulmonary disease) Surgical History History of PTCA S/P hernia repair incisional History of vascular surgery rt and left leg 2019 History of colonoscopy with polypectomy 2018 History of AAA (abdominal aortic aneurysm) repair 2010 History of left inguinal hernia repair 2016 Family History Mother Cancer Diabetes Father CAD (coronary artery disease) Cancer Chronic kidney disease (CKD) Diabetes Brother No problems noted. Sister No problems noted. Grandfather Lung disease Denies family history of Clotting disorder Dementia Suicide Anesthesia complication Bleeding disorder Stroke Social History Smoking and tobacco/nicotine status: former use of tobacco/nicotine Quit status (tobacco/nicotine): has quit using Year quit tobacco: May 2021 Former quit date comment: 2ppd X 50 Alcohol intake: never Substance/Drug Use: never Vitals/I&O/Wt Last Vital Signs Temp 98.1 F 10/26/23 16:00 Pulse 83 10/26/23 16:00 Resp 15 10/26/23 16:00 BP 101/82 10/26/23 16:00 Pulse Ox 90 10/26/23 15:46 O2 Del Method Nasal Cannula 10/26/23 15:46 O2 Flow Rate 5 10/26/23 15:46 FiO2 60 10/24/23 08:00 10/26/23 10/26/23 10/26/23 06:59 14:59 22:59 Intake Total 590 / 1550.000 410 / 410 Output Total 300 / 2300 450 / 450 Balance 290 / -750.000 -40 / -40 Weight last 48 hrs Weight 181 lb 9.6 oz Weight 191 lb Physical Exam 2 Narrative: GENERAL: In general he is awake alert and talkative and is in no distress. He is mildly short of breath at rest HEENT: Exam within normal limits. NECK: Supple without jugular vein distention. The carotid upstroke is normal without bruits. BACK: Exam normal. LUNGS: Clear. HEART: Regular rate and rhythm. ABDOMEN: Benign without organomegaly or tenderness. EXTREMITIES: No edema. Both legs are very cool to the touch from the mid thighs down to his feet. There is mottling type discoloration on the anterior aspect of his legs at the level of the knees. There is also a purpleish discoloration of the inner aspect of his feet near the insteps that is slightly worse on the left that also includes the left great toe. There is capillary refill in the toes. I can barely get a pulse in the dorsalis pedis and posterior tibial. NEUROLOGIC: Exam normal. SKIN: Unremarkable. Urinary Catheter Management: Hurd: Cath Placed During This Visit: yes Reason for Continuing Indwelling Catheter: Accurate Measurement of Urinary Output in Critically Ill Patients Urinary Catheter Date of Insertion: 10/23/23 Urinary Catheter Time of Insertion: 17:28 Data 10/26/23 01:21 10/26/23 03:44 Micro: Microbiology 10/20/23 12:56 Blood Culture - Final Blood NO GROWTH AFTER 5 DAYS 10/20/23 12:50 Blood Culture - Final Blood NO GROWTH AFTER 5 DAYS A&P Assessment and plan (1) Popliteal artery aneurysm: (2) Dyspnea on exertion: (3) Iliac artery aneurysm, bilateral: (4) Benign essential HTN: (5) H/O endovascular stent graft for abdominal aortic aneurysm: (6) Persistent atrial fibrillation: (7) Ascending aortic aneurysm: Qualifiers: Presence of rupture: without rupture Qualified Code(s): I71.21 - Aneurysm of the ascending aorta, without rupture (8) Femoral artery aneurysm, bilateral: (9) Peripheral arterial disease: (10) Bilateral pulmonary embolism: (11) Pulmonary hypertension: (12) COPD (chronic obstructive pulmonary disease): Qualifiers: COPD type: chronic bronchitis Chronic bronchitis type: unspecified Qualified Code(s): J42 - Unspecified chronic bronchitis (13) Respiratory failure: Qualifiers: Chronicity: acute Respiratory failure complication: hypoxia and hypercapnia Qualified Code(s): J96.01 - Acute respiratory failure with hypoxia; J96.02 - Acute respiratory failure with hypercapnia Plan He is rather ill and has been transitioned over to Xarelto from heparin just now. It is important to keep him anticoagulated. As it pertains to his lower extremity vasculature I do not think this is critical limb ischemia. I think he generally has decreased flow to his legs as a result of his underlying peripheral arterial disease however it appears to me based on his physical exam and the previous aortogram with runoff in August that the grafts are still patent and that he still has flow below his knees. By physical exam I do not detect any embolic phenomenon since the discoloration of his foot especially on the left is generalized. Additionally, he does not have any pain. Patients who have distal embolization are usually in a great deal of pain. My recommendation is to watch this, transition him over to a p.o. antibiotic and see how he does. I would not think he needs to be transferred at this point. I did speak with his daughter who works here in administration. She was in the room when I met with him. Consult Attestations 2 Medical Necessity Statement: Admission for pneumonia, bilateral pulmonary emboli, peripheral arterial disease among others. and High Time for a total of 75 minutes, includes reviewing past or interval history, examining/interviewing patient, counseling patient/family/other support, updating patient/family/other support, discussing plan of care with staff, communicating with other healthcare providers and documenting encounter Diagnoses Popliteal artery aneurysm I72.4 Dyspnea on exertion R06.00 Iliac artery aneurysm, bilateral I72.3 Benign essential HTN I10 H/O endovascular stent graft for abdominal aortic aneurysm Z95.828 Persistent atrial fibrillation I48.19 Aneurysm of ascending aorta without rupture I71.21 Presence of rupture: without rupture Femoral artery aneurysm, bilateral I72.4 Peripheral arterial disease I73.9 Bilateral pulmonary embolism I26.99 Pulmonary hypertension I27.20 Chronic bronchitis, unspecified chronic bronchitis type J42 COPD type: chronic bronchitis Chronic bronchitis type: unspecified Respiratory failure J96.01; J96.02 Chronicity: acute Respiratory failure complication: hypoxia and hypercapnia
[2023-10-26] MEDS: enoxaparin 80 mg/0.8 mL Syringe SUBCUT (16:56)
[2023-10-26] MEDS: atorvastatin 40 mg Tablet 80 MG PO (16:59)
[2023-10-26] MEDS: pantoprazole 40 mg SDV IVP (17:35)
[2023-10-26] MEDS: metoprolol tartrate 25 mg Tablet 37.5 MG PO (20:37)
[2023-10-27] VITALS (15 sets, daily range): BP systolic 94–126; BP diastolic 66–83; PULSE 67–87; RESP 18–26; TEMP 36.6–36.8; O2SAT 90–95
[2023-10-27] MEDS: piperacillin-tazobactam 3.375 GM in sodium chloride 0.9% (plus) 50 ML IV ×3 (00:12→16:53)
[2023-10-27 03:37] LABS: Basophils % 0.1 %; Eosinophils % 0.1 %; Hematocrit 41.5 % (37-53); Lymphocytes # 0.4 10^3/uL (0.8-4.8); Lymphocytes % 2.2 %; Mean Corpuscular HGB Conc 33.5 g/dL (30-55); Mean Corpuscular Hemoglobin 29.4 pg (27-33); Mean Corpuscular Volume 87.7 fl (82-101); Mean Platelet Volume 11.2 fL (7.4-10.4); Monocytes # 1.6 10^3/uL (0.2-0.9); Monocytes % 9.3 %; Neutrophils # 14.98 10^3/uL (1.8-7.7); Neutrophils % 87.4 %; Nucleated Red Blood Cells % 0 %; Platelet Count 175 10^3/cmm (157-399); Red Blood Count 4.73 10^6/uL (3.85-5.65); Red Cell Distribution Width 14.8 % (12.1-15.1); White Blood Count 17.13 10^3/uL (3.29-11.43)
[2023-10-27 03:58] LABS: Anion Gap 9.7 (5-19); Blood Urea Nitrogen 40 mg/dL (8-23); Calcium 8.8 mg/dL (8.5-10.5); Chloride 85 mmol/L (98-107); Creatinine Clr Calc Pharmacy 87.6686; Glucose 140 mg/dL (65-115); Osmolality Calculated 290 mOsm/kg (285-295); Potassium 3.7 mmol/L (3.5-5.1); Sodium 134 mmol/L (136-145)
[2023-10-27 04:15] LABS: Carbon Dioxide 43 mmol/L (22-29)
[2023-10-27] MEDS: enoxaparin 80 mg/0.8 mL Syringe SUBCUT ×2 (04:36→16:53)
--- NOTE | 2023-10-27 07:22 | P.PN_ITS ---
Subjective 2 Subjective: Kimo had a relatively uneventful night. His biggest complaint is shortness of breath. He states he cannot move very much at all without being short of breath. He feels like the discoloration in his legs has improved slightly. He remains without any pain in his legs, feet or toes. No chest pain. Vitals/I&O/Wt Last Vital Signs Temp 97.9 F 10/27/23 03:39 Pulse 67 10/27/23 05:34 Resp 20 H 10/27/23 03:39 BP 108/66 10/27/23 03:39 Pulse Ox 95 10/27/23 03:39 O2 Del Method Nasal Cannula 10/27/23 03:39 O2 Flow Rate 5 10/27/23 03:39 FiO2 60 10/24/23 08:00 10/26/23 10/27/23 10/27/23 22:59 06:59 14:59 Intake Total 177.017 / 587.017 50 / 637.017 Output Total 325 / 775 125 / 900 Balance -147.983 / -187.983 -75 / -262.983 Weight last 48 hrs Weight 181 lb 9.6 oz Physical Exam 2 Narrative: GENERAL: In general he looks comfortable lying flat in bed HEENT: Exam within normal limits. NECK: Supple without jugular vein distention. The carotid upstroke is normal without bruits. BACK: Exam normal. LUNGS: Decreased breath sounds bilaterally. Occasional rales. HEART: Regular rate and rhythm. ABDOMEN: Benign without organomegaly or tenderness. EXTREMITIES: No edema. Some mottling discoloration on the anterior aspects of the legs at the knees which is less than yesterday. Also some dusky discoloration of the feet but less so than yesterday. NEUROLOGIC: Exam normal. SKIN: Unremarkable. Urinary Catheter Management: Hurd: Cath Placed During This Visit: yes Reason for Continuing Indwelling Catheter: Accurate Measurement of Urinary Output in Critically Ill Patients Urinary Catheter Date of Insertion: 10/23/23 Urinary Catheter Time of Insertion: 17:28 Data 10/27/23 03:00 10/27/23 03:00 A&P Assessment and plan (1) Popliteal artery aneurysm: (2) Dyspnea on exertion: (3) Iliac artery aneurysm, bilateral: (4) Benign essential HTN: (5) H/O endovascular stent graft for abdominal aortic aneurysm: (6) Persistent atrial fibrillation: (7) Ascending aortic aneurysm: Qualifiers: Presence of rupture: without rupture Qualified Code(s): I71.21 - Aneurysm of the ascending aorta, without rupture (8) Femoral artery aneurysm, bilateral: (9) Peripheral arterial disease: (10) Popliteal thrombosis: (11) Bilateral pulmonary embolism: (12) Pulmonary hypertension: (13) COPD (chronic obstructive pulmonary disease): Qualifiers: COPD type: chronic bronchitis Chronic bronchitis type: unspecified Qualified Code(s): J42 - Unspecified chronic bronchitis (14) SOB (shortness of breath): (15) Respiratory failure: Qualifiers: Chronicity: acute Respiratory failure complication: hypoxia and hypercapnia Qualified Code(s): J96.01 - Acute respiratory failure with hypoxia; J96.02 - Acute respiratory failure with hypercapnia (16) Acute hypoxic respiratory failure: Plan I believe the lower extremity mottling, blanching and discoloration is related to global hypoxemia from the pulmonary emboli, underlying COPD complicated by generalized peripheral arterial disease. I do not think he has any critical limb ischemia and I do not think there is any new lesions or significant lower extremity vascular disease contributing to this. This seems to be a global phenomenon. It is slightly improved today. I am hopeful that as his pulmonary status improves his lower extremity discoloration will improve. He has significant underlying baseline lung disease which has been significantly complicated and worsened by these acute pulmonary emboli. His blood pressure and heart rate are stable. Attestations 2 Medical Necessity Statement*: Admission for pneumonia, pulmonary emboli, peripheral arterial disease and Moderate Time for a total of 40 minutes, includes reviewing past or interval history, examining/interviewing patient, counseling patient/family/other support, updating patient/family/other support, discussing plan of care with staff, communicating with other healthcare providers and documenting encounter Diagnoses Popliteal artery aneurysm I72.4 Dyspnea on exertion R06.00 Iliac artery aneurysm, bilateral I72.3 Benign essential HTN I10 H/O endovascular stent graft for abdominal aortic aneurysm Z95.828 Persistent atrial fibrillation I48.19 Aneurysm of ascending aorta without rupture I71.21 Presence of rupture: without rupture Femoral artery aneurysm, bilateral I72.4 Peripheral arterial disease I73.9 Popliteal thrombosis I74.3 Bilateral pulmonary embolism I26.99 Pulmonary hypertension I27.20 Chronic bronchitis, unspecified chronic bronchitis type J42 COPD type: chronic bronchitis Chronic bronchitis type: unspecified SOB (shortness of breath) R06.02 Respiratory failure J96.01; J96.02 Chronicity: acute Respiratory failure complication: hypoxia and hypercapnia Acute hypoxic respiratory failure J96.01
[2023-10-27] MEDS: ipratropium-albuterol 3 mL Neb INHALATION ×4 (07:34→20:30)
[2023-10-27] MEDS: budesonide 0.5 mg/2 mL Neb INHALATION ×2 (07:34→20:30)
[2023-10-27] MEDS: FUROsemide 10 mg/mL SDV 4mL 40 MG IVP (08:37)
[2023-10-27] MEDS: predniSONE 20 mg Tablet 40 MG PO (08:38)
[2023-10-27] MEDS: aspirin 81 mg EC Tablet PO (08:39)
[2023-10-27] MEDS: amiodarone 200 mg Tablet 400 MG PO ×2 (08:39→17:00)
[2023-10-27] MEDS: levETIRAcetam 500 mg Tablet PO ×2 (08:39→17:00)
[2023-10-27] MEDS: metoprolol tartrate 25 mg Tablet 37.5 MG PO (08:39)
[2023-10-27] MEDS: potassium chloride ER 20 mEq Tablet PO (08:40)
--- NOTE | 2023-10-27 09:13 | PC.SOCIAL ---
IMM Update Pg. 2 of IMM updated and reviewed with patient, who verbalized understanding. Copy provided.
[2023-10-27] MEDS: ALPRAZolam 0.5 mg Tablet 0.25 MG PO ×2 (10:46→20:16)
--- NOTE | 2023-10-27 13:29 | P.PN_ITS ---
Subjective 2 Subjective: Patient was seen this morning, his shortness of breath is improving, no fevers, no chills, no cough his mottling persists but improved compared to yesterday, denies any bloody or black stools, no chest pain, no palpitations Vitals/I&O/Wt Last Vital Signs Temp 97.8 F 10/27/23 12:00 Pulse 77 10/27/23 12:00 Resp 25 H 10/27/23 12:00 BP 101/71 10/27/23 12:00 Pulse Ox 92 10/27/23 12:00 O2 Del Method Nasal Cannula 10/27/23 12:00 O2 Flow Rate 5 10/27/23 11:24 FiO2 60 10/24/23 08:00 10/26/23 10/27/23 10/27/23 22:59 06:59 14:59 Intake Total 177.017 / 587.017 50 / 637.017 50 / 50 Output Total 325 / 775 125 / 900 450 / 450 Balance -147.983 / -187.983 -75 / -262.983 -400 / -400 Weight last 48 hrs Weight 82.372 kg Physical Exam 2 Const: COMMON NORMALS: no acute distress and patient oriented x3 Resp: COMMON NORMALS: normal respiratory effort, No retractions, No use of accessory muscles and clear to auscultation bilaterally AUSCULTATION: clear to auscultation bilaterally Cardio: COMMON NORMALS: regular rate, regular rhythm, S1 normal heart sound present and S2 normal heart sound present RATE: regular rate RHYTHM: r egular rhythm HEART SOUNDS: S1 normal heart sound present and S2 normal heart sound present GI: COMMON NORMALS: Normal to inspection, nondistended, normoactive bowel sounds present and non-tender Extremity: COMMON NORMALS: no pedal edema Neuro: COMMON NORMALS: patient oriented x3 Psych: COMMON NORMALS: mental status grossly normal Skin: NARRATIVE SKIN EXAM: Left foot, blue toe, mild mottling bilateral extremities improved compared to yesterday OTHER: DP PT pulses palpable Urinary Catheter Management: Hurd: Cath Placed During This Visit: yes Reason for Continuing Indwelling Catheter: Accurate Measurement of Urinary Output in Critically Ill Patients Urinary Catheter Date of Insertion: 10/23/23 Urinary Catheter Time of Insertion: 17:28 Data 10/27/23 03:00 10/27/23 03:00 A&P Assessment and plan (1) Acute exacerbation of chronic obstructive pulmonary disease: (2) Atrial fibrillation with RVR: (3) Peripheral arterial disease: (4) Femoral artery aneurysm, bilateral: (5) DA (obstructive sleep apnea): (6) CHF exacerbation: (7) Acute hypoxic respiratory failure: (8) Bilateral pulmonary embolism: (9) Critical limb ischemia of both lower extremities: (10) Blue toe syndrome of left lower extremity: Plan Acute hypoxic hypercarbic respiratory failure ? Episode of respiratory distress yesterday secondary to acute flash pulm edema, CHF, fluid overload ? Secondary to COPD exacerbation, ? Secondary to CHF fluid overload, A-fib with RVR -Now with bilateral pulmonary embolism, with right heart strain, failure of Eliquis therapy FINDINGS: Filling defects compatible with pulmonary embolus in the RIGHT lower lobe distal segmental and subsegmental pulmonary arteries. Poor filling of the RIGHT lower lobe branches. Additional filling defects in the RIGHT middle lobe pulmonary artery. Additional suspected distal emboli with poor filling of the distal LEFT lower subsegmental pulmonary arteries posteriorly. Suspected RIGHT heart strain with reflux into the hepatic veins. Paradoxical bowing of the LEFT ventricle. Normal caliber thoracic aorta. Aortic calcification. No mediastinal or hilar lymphadenopathy. No axillary lymphadenopathy. ? Plan ? BiPAP as needed during the day, scheduled during the night ? prednisone 40 mg daily ? Antibiotic coverage broadened to Zosyn ? Budesonide, ? DuoNeb ? Fluid overloaded, CHF exacerbation, -7 L ? transition to p.o. amiodarone ?continue p.o. metoprolol 25 mg daily ?Bilateral PEs on Eliquis, failure of anticoagulant therapy, switch to heparin drip, switch to Lovenox therapeutic ? Follow sputum culture, respiratory viral panel, blood culture, so far no growth ? Full code ?lovenox for DVT prophylaxis Acute on chronic limb ischemia, blue toe synsrome FINDINGS Rt upper thigh bi pass is normal and lt lower leg bypass is normal Mild to moderate diffuse plaques in the iliac and femoral arteries bilaterally. No flow was detected in the [place] popliteal artery. Patent femoral-popliteal ?bypass Patent infrapopliteal vessels Resting LUCRECIA 0.8 on the right side and 1.0 on the left side CONCLUSIONS 1. Abnormal resting LUCRECIA on the right side, suggestive of mild to moderate peripheral artery disease. Features of total occlusion of the popliteal artery with patent femoral-popliteal? Bypass. 2. Normal resting LUCRECIA on the left side. Features of total occlusion of the popliteal artery with patent femoral-popliteal? bypass. Comparison with the previous study from 08/15/2023 is difficult because of the difference in the technical quality -Dr. 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 stent, patent right STAGE HAND to trunk bypass, patent left as they tip trunk bypass, patent right TP trunk stent, chronic occlusion of the right SFA to popliteal, left SFA to popliteal, RBI elevated due to medial calcinosis, on the left she has aneurysmal dilatation it extends into SFA measuring 4 x 4 cm, sluggish diminished flow throughout, moderate arthrosclerosis throughout patent vessels accessible to study -Patient is in hypercoagulable state, given that he developed a PE on anticoagulant therapy -Continue aspirin, statin, Lovenox -Cardiology, recommended medical management Plan for today continue therapeutic Lovenox continue to monitor extremities, continue antibiotics, continue IV diuresis, continue BiPAP during the night will order an overnight pulse ox Attestations 2 Medical Necessity Statement*: Patient requires hospitalization for acute on chronic limb ischemia, fluid overload, pneumonia, A-fib, requiring IV diuresis, Diagnoses Acute exacerbation of chronic obstructive pulmonary disease J44.1 Atrial fibrillation with RVR I48.91 Peripheral arterial disease I73.9 Femoral artery aneurysm, bilateral I72.4 DA (obstructive sleep apnea) G47.33 CHF exacerbation I50.9 Acute hypoxic respiratory failure J96.01 Bilateral pulmonary embolism I26.99 Critical limb ischemia of both lower extremities I70.223 Blue toe syndrome of left lower extremity I75.022
--- NOTE | 2023-10-27 16:27 | PC.NURSE ---
notified physician pt's BP is 94/72, asymptomatic. HR-70s to 80s, afib. Received tel order to hold Metoptrolol this dedrick and continue Amiodarone as ordered.
[2023-10-27] MEDS: atorvastatin 40 mg Tablet 80 MG PO (17:00)
[2023-10-27] MEDS: pantoprazole 40 mg SDV IVP (17:01)
[2023-10-27 20:52] LABS: SARS Covid-2 Antigen negative (Negative)
[2023-10-28] VITALS (19 sets, daily range): BP systolic 103–117; BP diastolic 69–80; PULSE 62–90; RESP 14–26; TEMP 36.4–36.8; O2SAT 90–96
[2023-10-28] MEDS: piperacillin-tazobactam 3.375 GM in sodium chloride 0.9% (plus) 50 ML IV ×2 (00:45→08:44)
[2023-10-28 04:18] LABS: Basophils % 0.1 %; Eosinophils % 0.1 %; Hematocrit 40.6 % (37-53); Lymphocytes # 0.4 10^3/uL (0.8-4.8); Lymphocytes % 2.3 %; Mean Corpuscular HGB Conc 33.3 g/dL (30-55); Mean Corpuscular Hemoglobin 29.5 pg (27-33); Mean Corpuscular Volume 88.6 fl (82-101); Mean Platelet Volume 11.5 fL (7.4-10.4); Monocytes # 1.1 10^3/uL (0.2-0.9); Neutrophils # 14.33 10^3/uL (1.8-7.7); Neutrophils % 89.1 %; Nucleated Red Blood Cells % 0 %; Platelet Count 182 10^3/cmm (157-399); Red Blood Count 4.58 10^6/uL (3.85-5.65); Red Cell Distribution Width 14.8 % (12.1-15.1); White Blood Count 16.08 10^3/uL (3.29-11.43)
[2023-10-28] MEDS: enoxaparin 80 mg/0.8 mL Syringe SUBCUT ×2 (04:33→17:38)
[2023-10-28 04:44] LABS: Blood Urea Nitrogen 39 mg/dL (8-23); Calcium 9.1 mg/dL (8.5-10.5); Chloride 84 mmol/L (98-107); Creatinine Clr Calc Pharmacy 87.6686; Glucose 139 mg/dL (65-115); Osmolality Calculated 288 mOsm/kg (285-295); Sodium 133 mmol/L (136-145)
[2023-10-28 04:46] LABS: Anion Gap 9.5 (5-19); Potassium 3.5 mmol/L (3.5-5.1)
[2023-10-28 04:52] LABS: Carbon Dioxide 43 mmol/L (22-29)
[2023-10-28] MEDS: ipratropium-albuterol 3 mL Neb INHALATION ×4 (07:29→20:50)
[2023-10-28] MEDS: budesonide 0.5 mg/2 mL Neb INHALATION ×2 (07:29→20:50)
--- NOTE | 2023-10-28 08:13 | P.PN_ITS ---
Subjective 2 Subjective: Kimo is slowly improving. He is less short of breath today. His legs are less mottled and his feet are less discolored. He still has no pain in his legs. He gets short of breath with minimal exercise. Vitals/I&O/Wt Last Vital Signs Temp 98.2 F 10/28/23 04:00 Pulse 70 10/28/23 07:33 Resp 16 10/28/23 07:29 BP 115/79 10/28/23 07:21 Pulse Ox 94 10/28/23 07:29 O2 Del Method Nasal Cannula 10/28/23 07:29 O2 Flow Rate 4 10/28/23 07:29 FiO2 60 10/24/23 08:00 10/27/23 10/28/23 10/28/23 22:59 06:59 14:59 Intake Total 170 / 220 230 / 450 Output Total 180 / 1150 Balance -10 / -930 230 / -700 Physical Exam 2 Narrative: GENERAL: In general he is comfortable at rest. HEENT: Exam within normal limits. NECK: Supple without jugular vein distention. The carotid upstroke is normal without bruits. BACK: Exam normal. LUNGS: Clear. HEART: Regular rate and rhythm. ABDOMEN: Benign without organomegaly or tenderness. EXTREMITIES: No edema. NEUROLOGIC: Exam normal. The feet are are less discolored and there is less purplish discoloration of the anterior and medial aspects of both feet. The left great toe is less dusky than it was. SKIN: Unremarkable. Skin of the anterior aspect of his legs at the knees is mottled but much less so than the last 2 days. Urinary Catheter Management: Hurd: Cath Placed During This Visit: yes Reason for Continuing Indwelling Catheter: Accurate Measurement of Urinary Output in Critically Ill Patients Urinary Catheter Date of Insertion: 10/23/23 Urinary Catheter Time of Insertion: 17:28 Data 10/28/23 04:00 10/28/23 04:00 A&P Assessment and plan (1) Popliteal artery aneurysm: (2) Dyspnea on exertion: (3) Iliac artery aneurysm, bilateral: (4) Benign essential HTN: (5) H/O endovascular stent graft for abdominal aortic aneurysm: (6) Ascending aortic aneurysm: Qualifiers: Presence of rupture: without rupture Qualified Code(s): I71.21 - Aneurysm of the ascending aorta, without rupture (7) Persistent atrial fibrillation: (8) Femoral artery aneurysm, bilateral: (9) Peripheral arterial disease: (10) CHF exacerbation: (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 I still believe that this is global hypoxemia causing global ischemia of the lower extremities. This is multifactorial related to his underlying lung disease, large volume pulmonary emboli and lower extremity peripheral arterial disease. I think as his pulmonary status improves from the pulmonary emboli he will improve overall. Attestations 2 Medical Necessity Statement*: He should be able to transfer to an extended care facility , High MDM includes number and complexity of problems actively addressed during encounter, amount and/or complexity of data reviewed/ordered and described risk of complication, morbidity or mortality of management as documented and Moderate Time for a total of 35 minutes, includes reviewing past or interval history, examining/interviewing patient, counseling patient/family/other support, updating patient/family/other support, discussing plan of care with staff, communicating with other healthcare providers and documenting encounter Diagnoses Popliteal artery aneurysm I72.4 Dyspnea on exertion R06.00 Iliac artery aneurysm, bilateral I72.3 Benign essential HTN I10 H/O endovascular stent graft for abdominal aortic aneurysm Z95.828 Aneurysm of ascending aorta without rupture I71.21 Presence of rupture: without rupture Persistent atrial fibrillation I48.19 Femoral artery aneurysm, bilateral I72.4 Peripheral arterial disease I73.9 CHF exacerbation I50.9 Popliteal thrombosis I74.3 Bilateral pulmonary embolism I26.99
[2023-10-28] MEDS: predniSONE 20 mg Tablet 40 MG PO (08:44)
[2023-10-28] MEDS: aspirin 81 mg EC Tablet PO (08:44)
[2023-10-28] MEDS: amiodarone 200 mg Tablet 400 MG PO ×2 (08:44→17:36)
[2023-10-28] MEDS: levETIRAcetam 500 mg Tablet PO ×2 (08:44→17:37)
[2023-10-28] MEDS: metoprolol tartrate 25 mg Tablet 37.5 MG PO ×2 (08:44→20:51)
[2023-10-28] MEDS: potassium chloride ER 20 mEq Tablet PO (08:44)
[2023-10-28] MEDS: ALPRAZolam 0.5 mg Tablet 0.25 MG PO ×2 (10:55→20:50)
--- NOTE | 2023-10-28 13:32 | PM.PN ---
Subjective Subjective: Patient was seen this morning, alert to person, to place, to time he can follow commands he does report shortness of breath with minimal exertion, generalized weakness, fatigue, malaise no fevers, no chills, does have a nonproductive cough, Vitals/I&O/Wt Last Vital Signs Temp 98.2 F 10/28/23 04:00 Pulse 84 10/28/23 13:28 Resp 14 10/28/23 13:28 BP 115/79 10/28/23 13:28 Pulse Ox 90 10/28/23 13:28 O2 Del Method Nasal Cannula 10/28/23 11:15 O2 Flow Rate 4 10/28/23 11:15 FiO2 60 10/24/23 08:00 10/27/23 10/28/23 10/28/23 22:59 06:59 14:59 Intake Total 170 / 220 230 / 450 290 / 290 Output Total 180 / 1150 150 / 150 Balance -10 / -930 230 / -700 140 / 140 Physical Exam Const: COMMON NORMALS: no acute distress and patient oriented x3 Resp: COMMON NORMALS: normal respiratory effort, No retractions, No use of accessory muscles and clear to auscultation bilaterally AUSCULTATION: clear to auscultation bilaterally Cardio: COMMON NORMALS: regular rate, regular rhythm, S1 normal heart sound present and S2 normal heart sound present RATE: regular rate RHYTHM: regular rhythm HEART SOUNDS: S1 normal heart sound present and S2 normal heart sound present GI: COMMON NORMALS: Normal to inspection, nondistended, normoactive bowel sounds present, non-tender and no masses Extremity: COMMON NORMALS: no pedal edema Neuro: COMMON NORMALS: patient oriented x3 Psych: COMMON NORMALS: mental status grossly normal Skin: NARRATIVE SKIN EXAM: Mottling bilateral extremities, improved continues to have blue toe syndrome, left great toe no pain DP PT pulses palpable bilaterally OTHER: Has evidence of protein calorie malnutrition, physical deconditioning muscle loss, bilateral temporal muscle wasting, bilateral thighs, bilateral calves, bilateral shoulders, loss of fat layer across ribs making ribs more exposed Urinary Catheter Management: Hurd: Cath Placed During This Visit: yes Reason for Continuing Indwelling Catheter: Accurate Measurement of Urinary Output in Critically Ill Patients Urinary Catheter Date of Insertion: 10/23/23 Urinary Catheter Time of Insertion: 17:28 Data 10/28/23 04:00 04/20/24 04:00 A&P Assessment and plan (1) Acute exacerbation of chronic obstructive pulmonary disease: (2) Atrial fibrillation with RVR: (3) Peripheral arterial disease: (4) Femoral artery aneurysm, bilateral: (5) DA (obstructive sleep apnea): (6) CHF exacerbation: (7) Acute hypoxic respiratory failure: (8) Bilateral pulmonary embolism: (9) Critical limb ischemia of both lower extremities: (10) Blue toe syndrome of left lower extremity: (11) Protein-calorie malnutrition, mild: (12) Muscle wasting: (13) Physical deconditioning: Plan Acute hypoxic hypercarbic respiratory failure ? Episode of respiratory distress yesterday secondary to acute flash pulm edema, CHF, fluid overload ? Secondary to COPD exacerbation, ? Secondary to CHF fluid overload, A-fib with RVR -Now with bilateral pulmonary embolism, with right heart strain, failure of Eliquis therapy FINDINGS: Filling defects compatible with pulmonary embolus in the RIGHT lower lobe distal segmental and subsegmental pulmonary arteries. Poor filling of the RIGHT lower lobe branches. Additional filling defects in the RIGHT middle lobe pulmonary artery. Additional suspected distal emboli with poor filling of the distal LEFT lower subsegmental pulmonary arteries posteriorly. Suspected RIGHT heart strain with reflux into the hepatic veins. Paradoxical bowing of the LEFT ventricle. Normal caliber thoracic aorta. Aortic calcification. No mediastinal or hilar lymphadenopathy. No axillary lymphadenopathy. ? Plan ? BiPAP as needed during the day, scheduled during the night ? prednisone 40 mg daily ? Antibiotic coverage broadened to Zosyn, de-escalate to Zosyn ? Budesonide, ? DuoNeb ? Fluid overloaded, CHF exacerbation, -8 L ? transition to p.o. amiodarone ?continue p.o. metoprolol 25 mg daily ?Bilateral PEs on Eliquis, failure of anticoagulant therapy, switch to heparin drip, switch to Lovenox therapeutic ? Follow sputum culture, respiratory viral panel, blood culture, so far no growth ? Full code ?lovenox for DVT prophylaxis Acute on chronic limb ischemia, blue toe synsrome FINDINGS Rt upper thigh bi pass is normal and lt lower leg bypass is normal Mild to moderate diffuse plaques in the iliac and femoral arteries bilaterally. No flow was detected in the [place] popliteal artery. Patent femoral-popliteal ?bypass Patent infrapopliteal vessels Resting LUCRECIA 0.8 on the right side and 1.0 on the left side CONCLUSIONS 1. Abnormal resting LUCRECIA on the right side, suggestive of mild to moderate peripheral artery disease. Features of total occlusion of the popliteal artery with patent femoral-popliteal? Bypass. 2. Normal resting LUCRECIA on the left side. Features of total occlusion of the popliteal artery with patent femoral-popliteal? bypass. 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 stent, patent right HYDROMETEOROLOGY TEACHER to trunk bypass, patent left as they tip trunk bypass, patent right TP trunk stent, chronic occlusion of the right SFA to popliteal, left SFA to popliteal, RBI elevated due to medial calcinosis, on the left she has aneurysmal dilatation it extends into SFA measuring 4 x 4 cm, sluggish diminished flow throughout, moderate arthrosclerosis throughout patent vessels accessible to study -Patient is in hypercoagulable state, given that he developed a PE on anticoagulant therapy -Continue aspirin, statin, Lovenox -Cardiology, recommended medical management Protein calorie malnutrition physical deconditioning, muscle wasting likely secondary advanced COPD, prolonged hospitalization Plan for today continue to monitor, PT OT, dietary eval, up out of bed, continue antibiotics continue Lovenox, hold off on diuresis for today Attestations Medical Necessity Statement*: Patient requires hospitalization for pulmonary embolism, acute worsening of peripheral vascular disease, respiratory failure fluid overload pneumonia COPD Diagnoses Acute exacerbation of chronic obstructive pulmonary disease J44.1 Atrial fibrillation with RVR I48.91 Peripheral arterial disease I73.9 Femoral artery aneurysm, bilateral I72.4 DA (obstructive sleep apnea) G47.33 CHF exacerbation I50.9 Acute hypoxic respiratory failure J96.01 Bilateral pulmonary embolism I26.99 Critical limb ischemia of both lower extremities I70.223 Blue toe syndrome of left lower extremity I75.022 Protein-calorie malnutrition, mild E44.1 Muscle wasting M62.50 Physical deconditioning R53.81
[2023-10-28] MEDS: amoxicillin-clav 875-125 mg Tablet 1 TAB PO (17:37)
[2023-10-28] MEDS: atorvastatin 40 mg Tablet 80 MG PO (17:37)
[2023-10-28] MEDS: pantoprazole 40 mg SDV IVP (17:40)
[2023-10-29] VITALS (17 sets, daily range): BP systolic 95–115; BP diastolic 67–77; PULSE 62–81; RESP 16–27; TEMP 36.3–36.6; O2SAT 93–99
[2023-10-29] MEDS: enoxaparin 80 mg/0.8 mL Syringe SUBCUT ×2 (04:28→18:20)
[2023-10-29 05:03] LABS: Basophils % 0.2 %; Eosinophils # 0.1 10^3/uL (0.0-0.8); Eosinophils % 0.4 %; Hematocrit 37.6 % (37-53); Lymphocytes # 0.7 10^3/uL (0.8-4.8); Lymphocytes % 4.1 %; Mean Corpuscular HGB Conc 32.7 g/dL (30-55); Mean Corpuscular Hemoglobin 29.1 pg (27-33); Mean Corpuscular Volume 88.9 fl (82-101); Mean Platelet Volume 11.3 fL (7.4-10.4); Monocytes # 1.5 10^3/uL (0.2-0.9); Monocytes % 8.8 %; Neutrophils # 14.91 10^3/uL (1.8-7.7); Neutrophils % 84.9 %; Nucleated Red Blood Cells % 0 %; Platelet Count 182 10^3/cmm (157-399); Red Blood Count 4.23 10^6/uL (3.85-5.65); Red Cell Distribution Width 14.6 % (12.1-15.1); White Blood Count 17.55 10^3/uL (3.29-11.43)
[2023-10-29 05:13] LABS: Anion Gap 6.4 (5-19); Blood Urea Nitrogen 31 mg/dL (8-23); Chloride 88 mmol/L (98-107); Creatinine Clr Calc Pharmacy 87.6686; Glucose 100 mg/dL (65-115); Osmolality Calculated 287 mOsm/kg (285-295); Potassium 3.4 mmol/L (3.5-5.1); Sodium 135 mmol/L (136-145)
[2023-10-29 05:16] LABS: Carbon Dioxide 44 mmol/L (22-29)
--- NOTE | 2023-10-29 07:27 | P.PN_ITS ---
Subjective 2 Subjective: No real changes yesterday and overnight. He was fast asleep this morning so I did not awaken him. He appears to be resting comfortably. The discoloration and mottling of the lower extremities is unchanged. Extremities remain cool. Vitals/I&O/Wt Last Vital Signs Temp 97.4 F L 10/29/23 04:00 Pulse 63 10/29/23 06:00 Resp 18 10/29/23 04:00 BP 104/67 10/29/23 04:00 Pulse Ox 99 10/29/23 04:00 O2 Del Method Nasal Cannula 10/29/23 04:00 O2 Flow Rate 4 10/29/23 04:00 FiO2 60 10/24/23 08:00 10/28/23 10/29/23 10/29/23 22:59 06:59 14:59 Intake Total 520 / 810 0 / 810 Output Total 330 / 480 Balance 190 / 330 0 / 330 Physical Exam 2 Narrative: GENERAL: Sleeping comfortably HEENT: Exam within normal limits. NECK: Supple without jugular vein distention. The carotid upstroke is normal without bruits. BACK: Exam normal. LUNGS: Clear. HEART: Irregular ABDOMEN: Benign without organomegaly or tenderness. EXTREMITIES: No edema. NEUROLOGIC: Exam normal. SKIN: Unremarkable. Mottling essentially unchanged in the knees and mild discoloration unchanged in the feet. Urinary Catheter Management: Hurd: Cath Placed During This Visit: yes Reason for Continuing Indwelling Catheter: Accurate Measurement of Urinary Output in Critically Ill Patients Urinary Catheter Date of Insertion: 10/23/23 Urinary Catheter Time of Insertion: 17:28 Data 10/29/23 04:01 10/29/23 04:01 A&P Assessment and plan (1) Popliteal artery aneurysm: (2) Dyspnea on exertion: (3) Iliac artery aneurysm, bilateral: (4) Benign essential HTN: (5) H/O endovascular stent graft for abdominal aortic aneurysm: (6) Persistent atrial fibrillation: (7) Femoral artery aneurysm, bilateral: (8) Peripheral arterial disease: (9) CHF exacerbation: (10) Bilateral pulmonary embolism: (11) Pulmonary hypertension: (12) COPD (chronic obstructive pulmonary disease): Qualifiers: COPD type: chronic bronchitis Chronic bronchitis type: unspecified Qualified Code(s): J42 - Unspecified chronic bronchitis (13) DA (obstructive sleep apnea): Plan No changes. Continue present care. Attestations 2 Medical Necessity Statement*: Hospitalization for management of multiple chronic serious medical problems and Moderate Time for a total of 30 minutes, includes reviewing past or interval history, examining/interviewing patient, placing orders, counseling patient/family/other support, updating patient/family/other support, discussing plan of care with staff, communicating with other healthcare providers and documenting encounter Diagnoses Popliteal artery aneurysm I72.4 Dyspnea on exertion R06.00 Iliac artery aneurysm, bilateral I72.3 Benign essential HTN I10 H/O endovascular stent graft for abdominal aortic aneurysm Z95.828 Persistent atrial fibrillation I48.19 Femoral artery aneurysm, bilateral I72.4 Peripheral arterial disease I73.9 CHF exacerbation I50.9 Bilateral pulmonary embolism I26.99 Pulmonary hypertension I27.20 Chronic bronchitis, unspecified chronic bronchitis type J42 COPD type: chronic bronchitis Chronic bronchitis type: unspecified DA (obstructive sleep apnea) G47.33
[2023-10-29] MEDS: budesonide 0.5 mg/2 mL Neb INHALATION ×2 (07:35→20:19)
[2023-10-29] MEDS: ipratropium-albuterol 3 mL Neb INHALATION ×4 (07:35→20:19)
[2023-10-29] MEDS: levETIRAcetam 500 mg Tablet PO ×2 (09:16→18:21)
[2023-10-29] MEDS: amiodarone 200 mg Tablet 400 MG PO ×2 (09:16→18:20)
[2023-10-29] MEDS: potassium chloride ER 20 mEq Tablet PO (09:16)
[2023-10-29] MEDS: predniSONE 20 mg Tablet 40 MG PO (09:16)
[2023-10-29] MEDS: amoxicillin-clav 875-125 mg Tablet 1 TAB PO ×2 (09:16→18:21)
[2023-10-29] MEDS: aspirin 81 mg EC Tablet PO (09:16)
[2023-10-29] MEDS: ALPRAZolam 0.5 mg Tablet 0.25 MG PO ×2 (09:20→18:29)
--- NOTE | 2023-10-29 13:34 | P.PN_ITS ---
Subjective 2 Subjective: Patient was seen this morning, denies any fevers, no chills, family members at bedside, Vitals/I&O/Wt Last Vital Signs Temp 97.8 F 10/29/23 11:28 Pulse 62 10/29/23 11:28 Resp 20 H 10/29/23 11:28 BP 101/69 10/29/23 11:28 Pulse Ox 97 10/29/23 11:28 O2 Del Method Nasal Cannula 10/29/23 11:28 O2 Flow Rate 4 10/29/23 11:20 FiO2 60 10/24/23 08:00 10/28/23 10/29/23 10/29/23 22:59 06:59 14:59 Intake Total 520 / 810 0 / 810 Output Total 330 / 480 Balance 190 / 330 0 / 330 Physical Exam 2 Const: COMMON NORMALS: no acute distress and patient oriented x3 Resp: COMMON NORMALS: normal respiratory effort, No retractions, No use of accessory muscles and clear to auscultation bilaterally AUSCULTATION: clear to auscultation bilaterally Cardio: COMMON NORMALS: regular rate, regular rhythm, S1 normal heart sound present and S2 normal heart sound present RATE: regular rate RHYTHM: r egular rhythm HEART SOUNDS: S1 normal heart sound present and S2 normal heart sound present GI: COMMON NORMALS: Normal to inspection, nondistended, normoactive bowel sounds present, Soft to palpation and non-tender PALPATION: Yes Soft to palpation Extremity: NARRATIVE EXTREMITY EXAM: 1+ pitting edema, mottling of bilateral lower extremities, significantly improved, left big toe blue toe syndrome significantly improved, DP PT pulses palpable Neuro: COMMON NORMALS: patient oriented x3 Psych: COMMON NORMALS: mental status grossly normal Urinary Catheter Management: Hurd: Cath Placed During This Visit: yes Reason for Continuing Indwelling Catheter: Accurate Measurement of Urinary Output in Critically Ill Patients Urinary Catheter Date of Insertion: 10/23/23 Urinary Catheter Time of Insertion: 17:28 Data 10/29/23 04:01 10/29/23 04:01 A&P Assessment and plan (1) Acute exacerbation of chronic obstructive pulmonary disease: (2) Atrial fibrillation with RVR: (3) Peripheral arterial disease: (4) Femoral artery aneurysm, bilateral: (5) DA (obstructive sleep apnea): (6) CHF exacerbation: (7) Acute hypoxic respiratory failure: (8) Bilateral pulmonary embolism: (9) Critical limb ischemia of both lower extremities: (10) Blue toe syndrome of left lower extremity: (11) Protein-calorie malnutrition, mild: (12) Muscle wasting: (13) Physical deconditioning: Plan Acute hypoxic hypercarbic respiratory failure ? Episode of respiratory distress yesterday secondary to acute flash pulm edema, CHF, fluid overload ? Secondary to COPD exacerbation, ? Secondary to CHF fluid overload, A-fib with RVR -Now with bilateral pulmonary embolism, with right heart strain, failure of Eliquis therapy FINDINGS: Filling defects compatible with pulmonary embolus in the RIGHT lower lobe distal segmental and subsegmental pulmonary arteries. Poor filling of the RIGHT lower lobe branches. Additional filling defects in the RIGHT middle lobe pulmonary artery. Additional suspected distal emboli with poor filling of the distal LEFT lower subsegmental pulmonary arteries posteriorly. Suspected RIGHT heart strain with reflux into the hepatic veins. Paradoxical bowing of the LEFT ventricle. Normal caliber thoracic aorta. Aortic calcification. No mediastinal or hilar lymphadenopathy. No axillary lymphadenopathy. ? Plan ? BiPAP as needed during the day, scheduled during the night ? prednisone 40 mg daily ? Antibiotic coverage broadened to Zosyn, de-escalated to Augmentin ? Budesonide, ? DuoNeb ? Fluid overloaded, CHF exacerbation, -8 L, does have evidence of fluid overload today, 1 dose IV Lasix ? transition to p.o. amiodarone ?continue p.o. metoprolol 25 mg daily ?Bilateral PEs on Eliquis, failure of anticoagulant therapy, switch to heparin drip, switch to Lovenox therapeutic ? Follow sputum culture, respiratory viral panel, blood culture, so far no growth ? Full code ?lovenox for DVT prophylaxis Acute on chronic limb ischemia, blue toe synsrome FINDINGS Rt upper thigh bi pass is normal and lt lower leg bypass is normal Mild to moderate diffuse plaques in the iliac and femoral arteries bilaterally. No flow was detected in the [place] popliteal artery. Patent femoral-popliteal ?bypass Patent infrapopliteal vessels Resting LUCRECIA 0.8 on the right side and 1.0 on the left side CONCLUSIONS 1. Abnormal resting LUCRECIA on the right side, suggestive of mild to moderate peripheral artery disease. Features of total occlusion of the popliteal artery with patent femoral-popliteal? Bypass. 2. Normal resting LUCRECIA on the left side. Features of total occlusion of the popliteal artery with patent femoral-popliteal? bypass. Comparison with the previous study from 08/15/2023 is difficult because of the difference in the technical quality - Nursing -Reviewed bio diagram of bilateral lower extremities, from [facility], on the right side patient has a patent right INSIDE SALES ASSISTANT stent, patent right APPLICATION MANAGER to trunk bypass, patent left as they tip trunk bypass, patent right TP trunk stent, chronic occlusion of the right SFA to popliteal, left SFA to popliteal, RBI elevated due to medial calcinosis, on the left she has aneurysmal dilatation it extends into SFA measuring 4 x 4 cm, sluggish diminished flow throughout, moderate arthrosclerosis throughout patent vessels accessible to study -Patient is in hypercoagulable state, given that he developed a PE on anticoagulant therapy -Continue aspirin, statin, Lovenox -Cardiology, recommended medical management Protein calorie malnutrition physical deconditioning, muscle wasting likely secondary advanced COPD, prolonged hospitalization Plan for today continue to monitor, PT OT, dietary eval, up out of bed, continue antibiotics continue Lovenox, 1 dose of IV Lasix today Attestations 2 Medical Necessity Statement*: Patient requires hospitalization for bilateral PEs, requiring therapeutic Lovenox, failure of anticoagulation Eliquis, fluid overload requiring Lasix therapy, acute on chronic limb ischemia requiring Lovenox Diagnoses Acute exacerbation of chronic obstructive pulmonary disease J44.1 Atrial fibrillation with RVR I48.91 Peripheral arterial disease I73.9 Femoral artery aneurysm, bilateral I72.4 DA (obstructive sleep apnea) G47.33 CHF exacerbation I50.9 Acute hypoxic respiratory failure J96.01 Bilateral pulmonary embolism I26.99 Critical limb ischemia of both lower extremities I70.223 Blue toe syndrome of left lower extremity I75.022 Protein-calorie malnutrition, mild E44.1 Muscle wasting M62.50 Physical deconditioning R53.81
[2023-10-29] MEDS: FUROsemide 10 mg/mL SDV 4mL 40 MG IVP (13:52)
[2023-10-29 14:15] LABS: Basophils % 0.2 %; Eosinophils % 0.2 %; Lymphocytes # 0.4 10^3/uL (0.8-4.8); Lymphocytes % 1.8 %; Mean Corpuscular HGB Conc 32.7 g/dL (30-55); Mean Corpuscular Hemoglobin 29.5 pg (27-33); Mean Corpuscular Volume 90.1 fl (82-101); Mean Platelet Volume 10.8 fL (7.4-10.4); Monocytes # 0.5 10^3/uL (0.2-0.9); Monocytes % 2.4 %; Neutrophils # 18.13 10^3/uL (1.8-7.7); Neutrophils % 92.9 %; Nucleated Red Blood Cells % 0 %; Platelet Count 218 10^3/cmm (157-399); Red Blood Count 4.55 10^6/uL (3.85-5.65); Red Cell Distribution Width 14.7 % (12.1-15.1); White Blood Count 19.52 10^3/uL (3.29-11.43)
[2023-10-29 14:28] LABS: Partial Thromboplastin Time 28.5 SECONDS (23.9-36.7)
[2023-10-29] MEDS: atorvastatin 40 mg Tablet 80 MG PO (18:20)
[2023-10-29] MEDS: pantoprazole 40 mg SDV IVP (18:21)
[2023-10-29] MEDS: benzonatate 100 mg Capsule 200 MG PO (20:46)
[2023-10-29] MEDS: metoprolol tartrate 25 mg Tablet PO (20:46)
[2023-10-30] VITALS (8 sets, daily range): BP systolic 104–111; BP diastolic 70–80; PULSE 54–72; RESP 18–22; TEMP 36.3–36.4; O2SAT 93–96
[2023-10-30 04:23] LABS: Basophils % 0.2 %; Eosinophils % 0.2 %; Hematocrit 36.6 % (37-53); Lymphocytes # 0.8 10^3/uL (0.8-4.8); Lymphocytes % 4.5 %; Mean Corpuscular HGB Conc 33.3 g/dL (30-55); Mean Corpuscular Hemoglobin 29.5 pg (27-33); Mean Corpuscular Volume 88.4 fl (82-101); Mean Platelet Volume 11.2 fL (7.4-10.4); Monocytes # 1.5 10^3/uL (0.2-0.9); Monocytes % 8.2 %; Neutrophils # 15.17 10^3/uL (1.8-7.7); Neutrophils % 84.3 %; Nucleated Red Blood Cells % 0 %; Platelet Count 202 10^3/cmm (157-399); Red Blood Count 4.14 10^6/uL (3.85-5.65); Red Cell Distribution Width 14.8 % (12.1-15.1); White Blood Count 17.97 10^3/uL (3.29-11.43)
[2023-10-30 04:52] LABS: Blood Urea Nitrogen 35 mg/dL (8-23); Calcium 9.2 mg/dL (8.5-10.5); Carbon Dioxide 37 mmol/L (22-29); Chloride 90 mmol/L (98-107); Creatinine Clr Calc Pharmacy 87.6686; Glucose 93 mg/dL (65-115); NT Pro B Type Natriuretic Pept 408 pg/mL (0-125); Osmolality Calculated 288 mOsm/kg (285-295); Sodium 135 mmol/L (136-145)
[2023-10-30 04:55] LABS: Anion Gap 11.9 (5-19); Potassium 3.9 mmol/L (3.5-5.1)
[2023-10-30] MEDS: enoxaparin 80 mg/0.8 mL Syringe SUBCUT (05:35)
[2023-10-30] MEDS: benzonatate 100 mg Capsule 200 MG PO (05:35)
--- NOTE | 2023-10-30 07:00 | XR_ITS ---
WS: [id number] PORTABLE CHEST HISTORY: sob COMPARISON: 10/24/2023 Lungs are clear and well expanded. No pleural effusion or pneumothorax. Cardiac size: Normal. Mediastinum/Aorta: Mild atherosclerosis aorta. No osseous abnormality seen. IMPRESSION: Atherosclerosis thoracic aorta. No pulmonary edema or pneumonia.
[2023-10-30] MEDS: predniSONE 20 mg Tablet 40 MG PO (07:17)
[2023-10-30] MEDS: amiodarone 200 mg Tablet 400 MG PO (07:17)
[2023-10-30] MEDS: ALPRAZolam 0.5 mg Tablet 0.25 MG PO (07:17)
[2023-10-30] MEDS: potassium chloride ER 20 mEq Tablet PO (07:17)
[2023-10-30] MEDS: amoxicillin-clav 875-125 mg Tablet 1 TAB PO (07:17)
[2023-10-30] MEDS: aspirin 81 mg EC Tablet PO (07:18)
[2023-10-30] MEDS: levETIRAcetam 500 mg Tablet PO (07:18)
[2023-10-30] MEDS: metoprolol tartrate 25 mg Tablet PO (07:18)
[2023-10-30] MEDS: budesonide 0.5 mg/2 mL Neb INHALATION (08:06)
[2023-10-30] MEDS: ipratropium-albuterol 3 mL Neb INHALATION (08:06)
--- NOTE | 2023-10-30 08:06 | P.PN_ITS ---
Subjective 2 Subjective: Kimo remained stable. No real changes overnight. He is weak. No real changes in the appearance and temperature of his legs. Vitals/I&O/Wt Last Vital Signs Temp 97.3 F L 10/30/23 03:58 Pulse 54 L 10/30/23 06:00 Resp 22 H 10/30/23 03:58 BP 104/73 10/30/23 03:58 Pulse Ox 96 10/30/23 03:58 O2 Del Method Nasal Cannula 10/30/23 03:58 O2 Flow Rate 4 10/29/23 20:19 FiO2 60 10/24/23 08:00 10/29/23 10/30/23 10/30/23 22:59 06:59 14:59 Intake Total 120 / 240 Output Total 200 / 300 0 / 300 Balance -80 / -60 0 / -60 Physical Exam 2 Narrative: GENERAL: In general he is comfortable but looks chronically ill HEENT: Exam within normal limits. NECK: Supple without jugular vein distention. The carotid upstroke is normal without bruits. BACK: Exam normal. LUNGS: Clear. HEART: Regular rate and rhythm. ABDOMEN: Benign without organomegaly or tenderness. EXTREMITIES: No edema. NEUROLOGIC: Exam normal. SKIN: Unremarkable. There is still the same mottling of his skin on the anterior aspect of his legs at the knees and similar discoloration of his feet. The skin is cool to the touch Urinary Catheter Management: Hurd: Cath Placed During This Visit: yes Reason for Continuing Indwelling Catheter: Accurate Measurement of Urinary Output in Critically Ill Patients Urinary Catheter Date of Insertion: 10/23/23 Urinary Catheter Time of Insertion: 17:28 Data 10/30/23 03:46 10/30/23 03:46 A&P Assessment and plan (1) Popliteal artery aneurysm: (2) Dyspnea on exertion: (3) Iliac artery aneurysm, bilateral: (4) Benign essential HTN: (5) H/O endovascular stent graft for abdominal aortic aneurysm: (6) Persistent atrial fibrillation: (7) Ascending aortic aneurysm: Qualifiers: Presence of rupture: without rupture Qualified Code(s): I71.21 - Aneurysm of the ascending aorta, without rupture (8) Femoral artery aneurysm, bilateral: (9) Peripheral arterial disease: (10) Bilateral pulmonary embolism: (11) Pulmonary hypertension: (12) Protein-calorie malnutrition, mild: (13) COPD (chronic obstructive pulmonary disease): Qualifiers: COPD type: chronic bronchitis Chronic bronchitis type: unspecified Qualified Code(s): J42 - Unspecified chronic bronchitis (14) DA (obstructive sleep apnea): Plan He remains chronically seriously ill. No changes today. Attestations 2 Medical Necessity Statement*: Hospitalization for management of multiple acute serious medical problems and chronic illnesses. and Moderate Time for a total of 35 minutes, includes coordinating care Diagnoses Popliteal artery aneurysm I72.4 Dyspnea on exertion R06.00 Iliac artery aneurysm, bilateral I72.3 Benign essential HTN I10 H/O endovascular stent graft for abdominal aortic aneurysm Z95.828 Persistent atrial fibrillation I48.19 Aneurysm of ascending aorta without rupture I71.21 Presence of rupture: without rupture Femoral artery aneurysm, bilateral I72.4 Peripheral arterial disease I73.9 Bilateral pulmonary embolism I26.99 Pulmonary hypertension I27.20 Protein-calorie malnutrition, mild E44.1 Chronic bronchitis, unspecified chronic bronchitis type J42 COPD type: chronic bronchitis Chronic bronchitis type: unspecified DA (obstructive sleep apnea) G47.33
--- NOTE | 2023-10-30 10:16 | PC.SOCIAL ---
IMM Updated Updated pt on IMM. No questions voiced. Provided pt a copy. Initialed, dated, & timed copy in chart.
--- NOTE | 2023-10-30 11:56 | P.DS_ITS ---
Discharge Providers Date of Admission: 10/20/23 12:44 Date of Discharge: October 30, 2023 Attending Provider at Admission: Timmy Stubbs MD Attending Provider at Discharge: Timmy Stubbs MD Primary Care Provider: Jackie Kulkarni MD Diagnoses at Discharge Discharge Diagnosis (1) Popliteal artery aneurysm: Status: Acute (2) Dyspnea on exertion: Status: Acute (3) Iliac artery aneurysm, bilateral: Status: Acute (4) Benign essential HTN: Status: Acute (5) H/O endovascular stent graft for abdominal aortic aneurysm: Status: Acute (6) Persistent atrial fibrillation: Status: Acute (7) Ascending aortic aneurysm: Status: Acute Qualifiers: Presence of rupture: without rupture Qualified Code(s): I71.21 - Aneurysm of the ascending aorta, without rupture (8) Femoral artery aneurysm, bilateral: Status: Acute (9) Peripheral arterial disease: Status: Acute (10) Bilateral pulmonary embolism: Status: Acute (11) Pulmonary hypertension: Status: Acute (12) Protein-calorie malnutrition, mild: Status: Acute (13) COPD (chronic obstructive pulmonary disease): Status: Acute Qualifiers: COPD type: chronic bronchitis Chronic bronchitis type: unspecified Qualified Code(s): J42 - Unspecified chronic bronchitis (14) DA (obstructive sleep apnea): Status: Acute Reason for Visit Reason for Visit: SOB, sent by heart [facility] Hospital Course Kimo Hernandez is a 73 year old male with a past medical history of COPD, prior history of smoking, atrial fibrillation on Eliquis, hypertension, hyperlipidemia, history of with endovascular stent, and femoral artery aneurysm, who presents to [facility] due to increasing shortness of breath, shortness of breath with exertion, chest palpitations. Patient tells me for the last few days, he has had increased shortness of breath increased shortness of breath with exertion, with cough, he is also experienced chest palpitations, he was recently found to have A-fib with RVR, was placed on metoprolol, but there was some confusion about if he was taking or not, he denies taking metoprolol,. Patient saw Dr. De La Torre this morning, was found to have increased shortness of breath, concerns for A-fib with RVR was sent to the emergency room for evaluation. Currently on 4 L, currently in A-fib heart rates are well- controlled in the 90s, he is normotensive, he has been given a dose of p.o. metoprolol, he is short of breath with a few words, nasal flaring intercostal retractions diffuse wheezing in all lung anderson, airway sound tight, has active coughing, nonproductive, Please look at my last progress note for detail, patient had a complicated hospitalization Patient was admitted to [facility] for acute hypoxic hypercarbic respiratory failure, secondary to acute flash pulm edema, CHF, fluid overload COPD exacerbation CHF, A-fib with RVR, new bilateral PEs with right heart strain, on Eliquis therapy, failure of anticoagulant therapy. For patient's CHF exacerbation, acute flash pulmonary edema, patient was diuresed, over 9 L negative, discharged on Lasix 40 mg daily, with potassium replacement therapy. For patient's advanced COPD, chronic hypercarbic respiratory failure, received inpatient therapy, received inpatient BiPAP therapy, discharged with BiPAP therapy, discharged to [facility] facility. For his A-fib with RVR, he was managed on an amiodarone drip, overall clinically improved, discharged on amiodarone tapering dose, with therapeutic Lovenox. During his hospitalization, patient developed bilateral PEs, on Eliquis therapy, failure of anticoagulant therapy, switch to therapeutic Lovenox, will be discharged on therapeutic Loven ox with close follow-up with Dr. Koenig as outpatient for decision if and when to switch to either Pradaxa or Coumadin therapy. Also had pneumonia during his hospitalization monitor with broad-spectrum antibiotic therapy, discharged on Augmentin. During his hospitalization patient developed acute on chronic limb ischemia with history of severe peripheral vascular disease, history of bypass, history of angioplasty, with blue toe syndrome, cardiology was consulted, recommended medical management. Managed on aspirin, statin, therapeutic Lovenox, no pain, had Doppler pulses, his blue toe syndrome has improved, bilateral lower extremity his mottling has improved, continue conservative interventions, ambulation, exertion, rewarming, medical management, with a close follow-up with vascular surgery as outpatient. I had a detailed discussion with patient, given his advanced COPD, he has multiple comorbidities, he has a high risk of rehospitalization, high risk of morbidity and mortality. Physical Exam Const: COMMON NORMALS: no acute distress and patient oriented x3 Resp: COMMON NORMALS: normal respiratory effort, No retractions, No use of accessory muscles and clear to auscultation bilaterally AUSCULTATION: clear to auscultation bilaterally Cardio: COMMON NORMALS: regular rate, regular rhythm, S1 normal heart sound present and S2 normal heart sound present RATE: regular rate RHYTHM: regular rhythm HEART SOUNDS: S1 normal heart sound present and S2 normal hea rt sound present GI: COMMON NORMALS: Normal to inspection, nondistended, normoactive bowel sounds present and non-tender Extremity: COMMON NORMALS: no pedal edema NARRATIVE EXTREMITY EXAM: Mottling bilateral lower extremities, improved, DP PT pulses palpable blue toe syndrome on the left improved Neuro: COMMON NORMALS: patient oriented x3 Psych: COMMON NORMALS: mental status grossly normal Urinary Catheter Management: Hurd: Cath Placed During This Visit: yes Reason for Continuing Indwelling Catheter: Accurate Measurement of Urinary Output in Critically Ill Patients Urinary Catheter Date of Insertion: 10/23/23 Urinary Catheter Time of Insertion: 17:28 Discharge Data Studies Completed and Pending Completed Studies During Hospitalization Category Date Time Status CT angio chest PE protcl [id number] Routine Cat Scan 10/24/23 09:30 Completed XR chest 1V portable [id number] Routine Exams 10/22/23 08:43 Completed XR chest 1V portable [id number] Routine Exams 10/24/23 07:00 Completed XR chest 1V portable [id number] Routine Exams 10/30/23 07:00 Completed XR chest 1V portable [id number] Urgent Exams 10/20/23 09:59 [place] [id number] Stat Ultrasound 10/26/23 09:44 Completed CV. echo complete* [id number] Stat Ultrasound 10/20/23 12:46 Completed Pending at discharge Category Date Time Status Basic Metabolic Panel AM LABS Lab 10/31/23 04:00 Ordered Basic Metabolic Panel AM LABS Lab 11/01/23 04:00 Ordered C Reactive Protein AM LABS Lab 10/31/23 04:00 Ordered C Reactive Protein AM LABS Lab 11/01/23 04:00 Ordered Complete Blood Count w/Auto AM LABS Lab 10/31/23 04:00 Ordered Complete Blood Count w/Auto AM LABS Lab 11/01/23 04:00 Ordered NT Pro B Type Natriuretic Pept QAM Lab 10/31/23 06:00 Ordered NT Pro B Type Natriuretic Pept QAM Lab 11/01/23 06:00 Ordered Laboratory Results WBC 17.97 10^3/uL (3.29-11.43) H 10/30/23 03:46 RBC 4.14 10^6/uL (3.85-5.65) 10/30/23 03:46 Hgb 12.20 g/dL (11.27-16.99) 10/30/23 03:46 Hct 36.6 % (37-53) L 10/30/23 03:46 MCV 88.4 fl (82-101) 10/30/23 03:46 MCH 29.5 pg (27-33) 10/30/23 03:46 MCHC 33.3 g/dL (30-55) 10/30/23 03:46 RDW 14.8 % (12.1-15.1) 10/30/23 03:46 Plt Count 202 10^3/cmm (157-399) 10/30/23 03:46 MPV 11.2 fL (7.4-10.4) H 10/30/23 03:46 Neut % (Auto) 84.3 % 10/30/23 03:46 Lymph % (Auto) 4.5 % 10/30/23 03:46 Ross % (Auto) 8.2 % 10/30/23 03:46 Eos % (Auto) 0.2 % 10/30/23 03:46 Baso % (Auto) 0.2 % 10/30/23 03:46 Neut # (Auto) 15.17 10^3/uL (1.8-7.7) H 10/30/23 03:46 Lymph # (Auto) 0.8 10^3/uL (0.8-4.8) 10/30/23 03:46 Ross # (Auto) 1.5 10^3/uL (0.2-0.9) H 10/30/23 03:46 Eos # (Auto) 0.0 10^3/uL (0.0-0.8) 10/30/23 03:46 Baso # (Auto) 0.0 10^3/uL (0.0-0.1) 10/30/23 03:46 Nucleated RBC % (auto) 0 % 10/30/23 03:46 Nucleated RBCs # 0.0 /100WBC 10/30/23 03:46 PT 14.60 SECONDS (12.1-14.9) 10/29/23 14:08 INR 1.10 (0.8-1.2) 10/29/23 14:08 APTT 28.5 SECONDS (23.9-36.7) 10/29/23 14:08 Specimen Type Arterial 10/24/23 04:15 Sample Site Brachial, right 10/24/23 04:15 ABG pH 7.45 (7.35-7.45) 10/24/23 04:15 ABG pCO2 62.0 mmHg (35-45) H* 10/24/23 04:15 ABG pO2 85.6 mmHg (80.0-100.0) 10/24/23 04:15 ABG PO2/FiO2 Ratio 0 10/24/23 04:15 ABG HCO3 43.4 mmol/L (22-26) H 10/24/23 04:15 ABG O2 Saturation 99.0 10/23/23 16:20 ABG Base Excess 16.1 mmol/L (-2.0-2.0) H 10/24/23 04:15 Geremias Test N/a 10/24/23 04:15 A-a O2 Gradient 36.8 mmHg (5-10) H 10/23/23 16:20 Hematocrit 43.7 % (42-52) 10/24/23 04:15 Hgb O2 Saturation 98.1 % (95-100) 10/23/23 16:20 Carboxyhemoglobin 0.7 %THgb (0.4-20.1) 10/23/23 16:20 Methemoglobin 0.2 % (0.4-1.5) L 10/23/23 16:20 Total Hemoglobin 15.2 g/dL (14-18) 10/23/23 16:20 Sodium 141.0 mmol/L (131-143) 10/23/23 16:20 Potassium 4.1 mmol/L (3.5-5.0) 10/23/23 16:20 Glucose 138.0 mg/dL (70-115) H 10/23/23 16:20 Ionized Calcium 1.2 mmol/L (1.1-1.4) 10/23/23 16:20 O2 Delivery Device Nc 10/24/23 04:15 O2 Liters/Min 5.0 % 10/24/23 04:15 FiO2 40.0 % 10/24/23 04:15 Clinical Laboratory Service Teacher ID Alewe 10/24/23 04:15 Sodium 135 mmol/L (136-145) L 10/30/23 03:46 Potassium 3.9 mmol/L (3.5-5.1) 10/30/23 03:46 Chloride 90 mmol/L (98-107) L 10/30/23 03:46 Carbon Dioxide 37 mmol/L (22-29) H 10/30/23 03:46 Anion Gap 11.9 (5-19) 10/30/23 03:46 BUN 35 mg/dL (8-23) H 10/30/23 03:46 Creatinine 0.6 mg/dL (0.7-1.2) L 10/30/23 03:46 GFR Calculation Not Reportable 10/30/23 03:46 Glucose 93 mg/dL (65-115) 10/30/23 03:46 Estimat Average Glucose 103 10/20/23 10:03 Hemoglobin A1c 5.2 % (4.0-6.0) 10/20/23 10:03 Calculated Osmolality 288 mOsm/kg (285-295) 10/30/23 03:46 Calcium 9.2 mg/dL (8.5-10.5) 10/30/23 03:46 Phosphorus 4.9 mg/dL (2.5-4.5) H 10/24/23 03:24 Magnesium 2.1 mg/dL (1.7-2.3) 10/24/23 03:24 Total Bilirubin 1.2 mg/dL (0.15-1.2) 10/24/23 03:24 AST 30 U/L (0-40) 10/24/23 03:24 ALT 52 U/L (0-41) H 10/24/23 03:24 Alkaline Phosphatase 58 U/L (40-130) 10/24/23 03:24 Troponin T Baseline 20 ng/L (0-15) H 10/23/23 17:11 Troponin T 120 Minute 19.85 ng/L (0-15) H 10/23/23 20:35 Delta Troponin T -0.15 ABS# (0-10) L 10/23/23 20:35 Troponin T Hi Sens 6Hr 17.16 ng/L (0-15) H 10/23/23 23:11 Troponin T Hi Sens 6Hr Delta -2.84 ng/L (0-12) L 10/23/23 23:11 C-Reactive Protein 3.0 mg/L (0.0-4.9) 10/30/23 03:46 NT-Pro-B Natriuret Pep 408 pg/mL (0-125) H 10/30/23 03:46 Total Protein 6.5 g/dL (6.6-8.7) L 10/24/23 03:24 Albumin 4.0 g/dL (3.5-5.2) 10/24/23 03:24 Globulin 2.5 g/dL (1.3-4.6) 10/24/23 03:24 Triglycerides 93 mg/dL (0-150) 10/20/23 10:03 Cholesterol 213 mg/dL (0-200) H 10/20/23 10:03 LDL Cholesterol, Calc 146 mg/dL (50-129) H 10/20/23 10:03 HDL Cholesterol 48 mg/dL (60-100) L 10/20/23 10:03 LDL/HDL Ratio 3.04 RATIO (0.00-3.22) 10/20/23 10:03 Cholesterol/HDL Ratio 4.44 mg/dL (1.0-5.00) 10/20/23 10:03 Procalcitonin 0.05 ng/mL (0-0.5) 10/24/23 03:24 TSH 1.82 uIU/mL (0.27-4.20) 10/20/23 10:03 Adenovirus (PCR) Not detected (NOT DETECT) 10/20/23 11:55 C. pneumoniae DNA (PCR) Not detected (NOT DETECT) 10/20/23 11:55 Coronavirus 229E (PCR) Not detected (NOT DETECT) 10/20/23 11:55 Human Metapneumovir PCR Not detected (NOT DETECT) 10/20/23 11:55 Influenza A (H1) PCR Not detected (NOT DETECT) 10/20/23 11:55 Influ A (H1/09) PCR Not detected (NOT DETECT) 10/20/23 11:55 Influenza A (H3) PCR Not detected (NOT DETECT) 10/20/23 11:55 Influenza Type A (PCR) Not detected (NOT DETECT) 10/20/23 11:55 Influenza Type B (PCR) Not detected (NOT DETECT) 10/20/23 11:55 M. pneumoniae (PCR) Not detected (NOT DETECT) 10/20/23 11:55 Parainfluenza 1 (PCR) Not detected (NOT DETECT) 10/20/23 11:55 Parainfluenza 2 (PCR) Not detected (NOT DETECT) 10/20/23 11:55 Parainfluenza 3 (PCR) Not detected (NOT DETECT) 10/20/23 11:55 Parainfluenza 4 (PCR) Not detected (NOT DETECT) 10/20/23 11:55 RSV Type A (PCR) Not detected (NOT DETECT) 10/20/23 11:55 RSV Type B (PCR) Not detected (NOT DETECT) 10/20/23 11:55 Entero/Rhino (PCR) Not detected (NOT DETECT) 10/20/23 11:55 SARS-CoV-2 (PCR) Not detected (NOT DETECT) 10/20/23 11:55 SARS-CoV-2 Ag (Rapid) negative (Negative) 10/27/23 17:25 Vitals Last Vital Signs Temp 97.3 F L 10/30/23 03:58 Pulse 68 10/30/23 09:44 Resp 21 H 10/30/23 09:44 BP 111/80 10/30/23 09:44 Pulse Ox 93 10/30/23 09:44 O2 Del Method Nasal Cannula 10/30/23 08:00 O2 Flow Rate 4 10/30/23 08:00 FiO2 60 10/24/23 08:00 Discharge Plan Discharge Patient Disposition: er SNF Condition: Stable Prescriptions: New Xanax 0.5 mg tablet 0.25 mg PO TID PRN (Reason: anxiety) Qty: 11 0RF aspirin 81 mg Tablet,Delayed Release (Dr/Ec) 81 mg PO DAILY 30 Days Qty: 30 0RF benzonatate 100 mg Capsule 200 mg PO Q8H PRN (Reason: cough) 7 Days Qty: 42 0RF pantoprazole [Protonix] 40 mg tablet,delayed release (DR/EC) 40 mg PO BID 30 Days Qty: 60 0RF amiodarone [Pacerone] 200 mg Tablet See Rx Instructions .ROUTE .COMPLEX Qty: 60 0RF Rx Instructions: 2 tab twice daily for 3 days, 1 tab twice daily for 14 days, then 1 tab daily enoxaparin 80 mg/0.8 mL Syringe 80 mg SUBCUT Q12H 30 Days Qty: 48 0RF amoxicillin-pot clavulanate 875-125 mg Tablet 1 tab PO BID 7 Days Qty: 14 0RF metoprolol tartrate 25 mg Tablet 25 mg PO BID@0900,2100 30 Days Qty: 60 0RF Continued albuterol sulfate [ProAir HFA] 90 mcg/actuation HFA aerosol inhaler 1 inh inhalation QID PRN (Reason: Shortness Of Breath) albuterol sulfate 0.63 mg/3 mL solution for nebulization 0.63 mg inhalation Q6H Qty: 90 3RF budesonide 0.5 mg/2 mL suspension for nebulization 0.5 mg inhalation BID Qty: 120 6RF Spiriva Respimat 1.25 mcg/actuation mist 2 puff inhalation DAILY Qty: 4 6RF guaifenesin [Mucinex] 600 mg tablet extended release 12hr 600 mg PO BID PRN (Reason: congestion) Qty: 60 6RF prednisolone 5 mg tablet 5 mg PO DAILY Qty: 30 3RF cholecalciferol (vitamin D3) [Vitamin D3] 25 mcg (1,000 unit) Capsule 25 mcg PO DAILY Qty: 0 levetiracetam 500 mg Tablet 500 mg PO BID rosuvastatin 40 mg Tablet 40 mg PO QPM Changed potassium chloride 20 mEq tablet extended release 20 meq PO DAILY 30 Days Qty: 30 0RF furosemide [Lasix] 20 mg tablet 40 mg PO DAILY 30 Days Qty: 60 0RF Discontinued apixaban 5 mg tablet 5 mg PO BID doxycycline hyclate 100 mg tablet 100 mg PO BID Qty: 10 0RF arformoterol 15 mcg/2 mL solution for nebulization 2 ml inhalation BID Qty: 120 6RF diltiazem HCl 180 mg capsule,extended release 24hr 180 mg PO DAILY Discharge Orders: Discharge Order (Routine); Ordered 10/30/23 Ordered By: Timmy Stubbs Other Ambulatory Orders: DME: BIPAP (Order) Location: None Selected Ordered By: Timmy Stubbs DME: Hospital Bed (Order) Location: None Selected Ordered By: Timmy Stubbs Referrals: [facility] [Outside] Jackie Kulkarni MD [Primary Care Provider] - Datar,Alex Frances MD [Physician] - 1 week Casa Baig M.D [Physician] - 2 weeks Nadeem Koenig MD [Hospitalist] - 1 month Bertrand Joseph [Referring] - 2 weeks (PVD) Discharge Diet: Cardiac Discharge Activity: Resume usual activity Patient Instructions: Benzonatate (By mouth) (Tessalon Perles, Zonatuss), Metoprolol (By mouth) (Lopressor, Toprol XL), Alprazolam (By mouth) (Xanax, Xanax XR, alprazolam Intensol, Gabazolamin), Aspirin (By mouth), Amox icillin/Clavulanate Potassium (By mouth), Amiodarone (By mouth) (Cordarone, Pacerone), Enoxaparin (By injection) (Lovenox), Pantoprazole (By mouth) (Protonix), Heart Failure (DC), A-fib (Atrial Fibrillation) (DC), Dyspnea (DC), Chronic Respiratory Failure (DC), CHF Stoplight, Opioid Safety Activity Restrictions/Additional Instructions: - For patient's severe COPD, chronic hypercarbic respiratory failure continue BiPAP 20 over 10 45% FiO2, -Continue antibiotics as prescribed ? Lasix 40 mg daily with potassium replacement therapy ? Please follow-up with cardiology ? For patient's severe peripheral vascular disease, please follow-up with [facility] vascular surgery ? For patient's pulmonary embolism please follow-up with pulmonary, cardiology ? Patient is atrial fibrillation please follow-up with cardiology -Continue Lovenox 80 mg every 12 hours ? Follow-up with oncology -Please monitor closely for hemoptysis, if so go to the emergency room, ? Tessalon Perles as needed for cough ? Xanax as needed for anxiety Discharge Attestations Time Spent in Discharge Care*: greater than 30 min Quality Metrics Clinical Quality Measures [ Venous Thromboembolism { Contraindication to Overlap Therapy: Overlap treatment not indicated; VTE Discharge Education: Education about anticoagulant therapy/Care Notes given;}. No reported AMI, CVA or VTE this stay] Coding Level of Care Code 68684 Total time (in minutes) for Discharge: 55 Diagnoses Popliteal artery aneurysm I72.4 Dyspnea on exertion R06.00 Iliac artery aneurysm, bilateral I72.3 Benign essential HTN I10 H/O endovascular stent graft for abdominal aortic aneurysm Z95.828 Persistent atrial fibrillation I48.19 Aneurysm of ascending aorta without rupture I71.21 Presence of rupture: without rupture Femoral artery aneurysm, bilateral I72.4 Peripheral arterial disease I73.9 Bilateral pulmonary embolism I26.99 Pulmonary hypertension I27.20 Protein-calorie malnutrition, mild E44.1 Chronic bronchitis, unspecified chronic bronchitis type J42 COPD type: chronic bronchitis Chronic bronchitis type: unspecified DA (obstructive sleep apnea) G47.33
--- NOTE | 2023-10-30 14:45 | PC.NURSE ---
Discharge Note Patient discharged to SNF via ready transport accompanied by ready transport. Discharge instructions reviewed with patient and/or financial services sales representative. Mobile pharmacy medications and/or prescriptions provided. Belongings/home medications returned.
== END 2023-10-30 12:44 | disposition skilled nursing facility (03) | DRG 175 ==
LOC: ER 12:50 → CSU 13:13
PROVIDERS: Admitting Provider Family Medicine; Emergency Provider Physician Assistant; PCP Family Medicine; Visit Provider Family Medicine
DX: I26.99 Other pulmonary embolism without acute cor pulmonale (principal); I50.31 Acute diastolic (congestive) heart failure; J18.9 Pneumonia, unspecified organism; J96.02 Acute respiratory failure with hypercapnia; J96.01 Acute respiratory failure with hypoxia; J44.1 Chronic obstructive pulmonary disease with (acute) exacerbation; J44.0 Chronic obstructive pulmonary disease with (acute) lower respiratory infection; I75.022 Atheroembolism of left lower extremity; E46 Unspecified protein-calorie malnutrition; I48.91 Unspecified atrial fibrillation; I11.0 Hypertensive heart disease with heart failure; E78.5 Hyperlipidemia, unspecified; F32.A Depression, unspecified; G47.33 Obstructive sleep apnea (adult) (pediatric); I70.223 Atherosclerosis of native arteries of extremities with rest pain, bilateral legs; Z11.52 Encounter for screening for COVID-19; Z79.01 Long term (current) use of anticoagulants; Z68.26 Body mass index [BMI] 26.0-26.9, adult; Z95.820 Peripheral vascular angioplasty status with implants and grafts; Z87.891 Personal history of nicotine dependence; Z98.890 Other specified postprocedural states
CPT/HCPCS: 36415; 36600; 51702; 71045; 71275; 80048; 80051; 80053; 80061; 82330; 82803; 82805; 83036; 83735; 83880; 84100; 84145; 84443; 84484; 85025; 85610; 85730; 86140; 87040; 87070; 87205; 87426; 87486; 87581; 87633; 93005; 93306; 93925; 94640; 94660; 94664; 94760; 94762; 96365; 96367; 96372; 96375; 96376; 97161; 97530; 99215; 99285; C9113; J0283; J0456; J0696; J1644; J1650; J1940; J2543; J2919; J3490; J7050; J7512; J7626; Q0144; Q9967

== ENCOUNTER 2023-11-05 10:19 | Inpatient (IN) | payer OTHER, SELFPAY ==
[2023-11-05] VITALS (16 sets, daily range): BP systolic 98–122; BP diastolic 57–84; PULSE 81–107; RESP 16–28; TEMP 36.3–36.9; O2SAT 91–97; BMI 27.4
--- NOTE | 2023-11-05 10:30 | ECG_ITS ---
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 Measurements Intervals [place] Rate: 87 P: 0 TX: 0 QRS: 52 QRSD: 104 T: 57 QT: 380 QTc: 459 Interpretive Statements ATRIAL FIBRILLATION NONSPECIFIC ST & T-WAVE ABNORMALITY ABNORMAL RHYTHM ECG Some features of RVH Compared to ECG 10/23/2023 22:52:08 Intraventricular conduction delay no longer present T-wave abnormality still present Electronically Signed On 11-05-2023 22:44:25 CDT by Andrew Petersen M.D. [id number]
--- NOTE | 2023-11-05 10:31 | XRR_ITS ---
PROCEDURE INFORMATION: Exam: XR Chest Exam date and time: 11/05/2023 10:44 AM Age: 73 years old Clinical indication: Shortness of breath; Patient HX: Years of SOB but recently has gotten worse, prescribed oxygen 30/01, history of emphysema, copd. Triple a surgery in 2010 TECHNIQUE: Imaging protocol: Radiologic exam of the chest. Views: 1 view. COMPARISON: CR XR chest 1V portable [id number] 10/30/2023 7:29 AM FINDINGS: Lungs: There is extensive infiltrate throughout much of the left lung. The infiltrate is more dense in the lower lobe. The right lung is clear. Pleural spaces: Unremarkable. No pleural effusion. No pneumothorax. Heart/Mediastinum: Unremarkable. No cardiomegaly. Bones/joints: Unremarkable. XR/XR chest 1V portable [id number] IMPRESSION: Extensive left-sided pneumonia
--- NOTE | 2023-11-05 10:31 | CTR_ITS ---
PROCEDURE INFORMATION: Exam: CTA Chest With Contrast Exam date and time: 11/05/2023 11:06 AM Age: 73 years old Clinical indication: Shortness of breath; Additional info: SOB TECHNIQUE: Imaging protocol: Computed tomographic angiography of the chest with contrast. Exam focused on the arteries. 3D rendering (Not supervised by radiologist): MIP and/or 3D reconstructed images were created by the technologist. Radiation optimization: All CT scans at this facility use at least one of these dose optimization techniques: automated exposure control; mA and/or kV adjustment per patient size (includes targeted exams where dose is matched to clinical indication); or iterative reconstruction. Contrast material: OMNI 350; Contrast volume: 80 ml; Contrast route: INTRAVENOUS (IV); COMPARISON: CT angio chest PE protcl [id number] 10/24/2023 1:07 PM RADIATION DOSE METRICS: Total DLP (mGy-cm): 146.53 FINDINGS: Pulmonary arteries: There is non opacification involving the pulmonary arteries in both lung bases. Aorta: Unremarkable. No aortic aneurysm. No aortic dissection. Lungs: There is a large area of very dense consolidation involving the lingula of the left lung. Additional infiltrate is scattered throughout the left upper lobe as well as both lower lobes. Pleural spaces: Unremarkable. No pneumothorax. No pleural effusion. Heart: Unremarkable. No cardiomegaly. No pericardial effusion. Lymph nodes: Unremarkable. No enlarged lymph nodes. Bones/joints: Unremarkable. No acute fracture. Soft tissues: Unremarkable. CT/CT angio chest PE protcl [id number] IMPRESSION: 1. Extensive left-sided pneumonia along with minimal pneumonia in the right lower lobe 2. Lack of opacification of the basilar pulmonary arteries bilaterally. This is of uncertain etiology. I cannot exclude pulmonary emboli in these areas. I favor this finding to be due to technical factors.
--- NOTE | 2023-11-05 10:32 | ED_ITS ---
HPI - SOB/Dyspnea 2 General: Chief Complaint: Shortness of Breath/Dyspnea Stated Complaint: SOB Time Seen by Provider: 11/05/23 10:20 Source: patient and EMS Mode of arrival: EMS Limitations: no limitations History of Present Illness: HPI Narrative: 73-year-old male history of COPD along w ith CHF he been admitted recently and found to have a pulm embolism patient was discharged to half-way has been on Lovenox states he had increasing shortness of breath with worsening cough with some hemoptysis. He is on 5 L of oxygen at baseline. Denies any pain or fever. Associated symptoms: Reports hemoptysis; Deny abdominal pain, chest pain, fever(s), nausea or vomiting Review of Systems 2 Const: Denies: fever(s), chills, body aches or change in appetite ENMT: Denies: throat pain or dental pain Card: Denies: chest pain Resp: Reports: dyspnea, productive cough and hemoptysis GI: Denies: abdominal pain, nausea, vomiting or diarrhea Musc: Denies: neck pain or back pain Skin/Breast: Denies: rash Neuro: Denies: headache(s) PFSH ED 2 PFSH: Medical History Peripheral arterial disease Benign essential HTN Iliac artery aneurysm, bilateral DA (obstructive sleep apnea) Hx of seizure disorder Depression Dyspnea on exertion Popliteal artery aneurysm Spinal stenosis Tinnitus Sleep apnea in adult A-fib COPD (chronic obstructive pulmonary disease) Surgical History History of PTCA S/P hernia repair incisional History of vascular surgery rt and left leg 2019 History of colonoscopy with polypectomy 2018 History of AAA (abdominal aortic aneurysm) repair 2010 History of left inguinal hernia repair 2016 Family History Mother Cancer Diabetes Father CAD (coronary artery disease) Cancer Chronic kidney disease (CKD) Diabetes Brother No problems noted. Sister No problems noted. Grandfather Lung disease Denies family history of Clotting disorder Dementia Suicide Anesthesia complication Bleeding disorder Stroke Social History Smoking and tobacco/nicotine status: former use of tobacco/nicotine Quit status (tobacco/nicotine): has quit using Year quit tobacco: May 2021 Former quit date comment: 2ppd X 50 Alcohol intake: never Substance/Drug Use: never Physical Exam 2 Const: COMMON NORMALS: patient oriented x3 GENERAL APPEARANCE: ill appearing HENMT: COMMON NORMALS: normocephalic and atraumatic HEAD & SCALP: n ormocephalic and atraumatic Neck/C-Spine: COMMON NORMALS: full ROM and supple Chest: COMMONS NORMALS: normal inspection of the chest Resp: EFFORT & INSPECTION: Yes respiratory distress AUSCULTATION: rales Cardio: COMMON NORMALS: regular rate, regular rhythm and No murmurs present (Cardio) RATE: regular rate RHYTHM: regular rhythm GI: COMMON NORMALS: Normal to inspection, nondistended, normoactive bowel sounds present, Soft to palpation, non-tender and no masses PALPATION: Yes Soft to palpation Extremity: COMMON NORMALS: normal to inspection and full ROM Neuro: COMMON NORMALS: patient oriented x3, moves all extremities and no focal motor deficits Psych: COMMON NORMALS: mental status grossly normal, Normal thought process present and cooperative THOUGHT PROCESS: Normal thought process present Skin: COMMON NORMALS: no rashes or lesions noted and no wounds GENERAL SKIN EXAM: no rashes or lesions noted Course 2 Vital Signs: Vital signs: Vital Signs Temperature 98.4 F 11/05/23 10:25 Pulse Rate 91 11/05/23 11:57 Respiratory Rate 18 11/05/23 11:57 Blood Pressure 100/70 11/05/23 11:57 Pulse Oximetry 96 11/05/23 11:57 Oxygen Delivery Me thod Nasal Cannula 11/05/23 11:57 Oxygen Flow Rate 5 11/05/23 11:57 MDM - SOB/Dyspnea Medical Decision Making Patient presents here with dyspnea along with cough he is found to have extensive left-sided pneumonia his vital signs here been normal we will start IV antibiotics spoke to the hospitalist will admit at this time. Medical Records I reviewed the patient's medical records. Lab Data I reviewed the patient's lab results. 11/05/23 10:36 11/05/23 10:36 Labs/Radiology: Radiology Impressions Chest CTA 11/05/23 10:31 IMPRESSION: 1. Extensive left-sided pneumonia along with minimal pneumonia in the right lower lobe 2. Lack of opacification of the basilar pulmonary arteries bilaterally. This is of uncertain etiology. I cannot exclude pulmonary emboli in these areas. I favor this finding to be due to technical factors. Chest X-Ray 11/05/23 10:31 IMPRESSION: Extensive left-sided pneumonia Laboratory Results WBC 19.11 10^3/uL (3.29-11.43) H 11/05/23 10:36 RBC 2.82 10^6/uL (3.85-5.65) L 11/05/23 10:36 Hgb 8.60 g/dL (11.27-16.99) L 11/05/23 10:36 Hct 27.2 % (37-53) L 11/05/23 10:36 MCV 96.5 fl (82-101) 11/05/23 10:36 MCH 30.5 pg (27-33) 11/05/23 10:36 MCHC 31.6 g/dL (30-55) 11/05/23 10:36 RDW 16.7 % (12.1-15.1) H 11/05/23 10:36 Plt Count 199 10^3/cmm (157-399) 11/05/23 10:36 MPV 10.0 fL (7.4-10.4) 11/05/23 10:36 Neut % (Auto) 81.8 % 11/05/23 10:36 Lymph % (Auto) 6.1 % 11/05/23 10:36 [place] % (Auto) 6.1 % 11/05/23 10:36 Eos % (Auto) 2.3 % 11/05/23 10:36 Baso % (Auto) 0.2 % 11/05/23 10:36 Neut # (Auto) 15.65 10^3/uL (1.8-7.7) H 11/05/23 10:36 Lymph # (Auto) 1.2 10^3/uL (0.8-4.8) 11/05/23 10:36 [place] # (Auto) 1.2 10^3/uL (0.2-0.9) H 11/05/23 10:36 Eos # (Auto) 0.4 10^3/uL (0.0-0.8) 11/05/23 10:36 Baso # (Auto) 0.0 10^3/uL (0.0-0.1) 11/05/23 10:36 Nucleated RBC % (auto) 0.1 % 11/05/23 10:36 Nucleated RBCs # 0.0 /100WBC 11/05/23 10:36 PT 14.60 SECONDS (12.1-14.9) 11/05/23 10:36 INR 1.11 (0.8-1.2) 11/05/23 10:36 Sodium 134 mmol/L (136-145) L 11/05/23 10:36 Potassium 4.5 mmol/L (3.5-5.1) 11/05/23 10:36 Chloride 92 mmol/L (98-107) L 11/05/23 10:36 Carbon Dioxide 37 mmol/L (22-29) H 11/05/23 10:36 Anion Gap 9.5 (5-19) 11/05/23 10:36 BUN 26 mg/dL (8-23) H 11/05/23 10:36 Creatinine 0.6 mg/dL (0.7-1.2) L 11/05/23 10:36 GFR Calculation Not Reportable 11/05/23 10:36 Glucose 115 mg/dL (65-115) 11/05/23 10:36 Calculated Osmolality 284 mOsm/kg (285-295) L 11/05/23 10:36 Calcium 8.5 mg/dL (8.5-10.5) 11/05/23 10:36 Total Bilirubin 1.0 mg/dL (0.15-1.2) 11/05/23 10:36 AST 34 U/L (0-40) 11/05/23 10:36 ALT 67 U/L (0-41) H 11/05/23 10:36 Alkaline Phosphatase 44 U/L (40-130) 11/05/23 10:36 NT-Pro-B Natriuret Pep 715 pg/mL (0-125) H 11/05/23 10:36 Total Protein 5.4 g/dL (6.6-8.7) L 11/05/23 10:36 Albumin 3.1 g/dL (3.5-5.2) L 11/05/23 10:36 Globulin 2.3 g/dL (1.3-4.6) 11/05/23 10:36 All radiology interpretation(s) finalized by discharge EKG Data EKG 1: I personally reviewed and interpreted this EKG as follows: EKG Interpretation Date: 11/05/23 EKG interpretation time: 10:53 Interpretation: afib hr [address] or t wave abnormalities qrs 104 qtc 425 Discharge Plan Discharge Patient Disposition: Admitted As Inpatient Clinical Impression: Pneumonia Condition: Stable Prescriptions: No Action albuterol sulfate [ProAir HFA] 90 mcg/actuation HFA aerosol inhaler 1 inh inhalation QID PRN (Reason: Shortness Of Breath) budesonide 0.5 mg/2 mL suspension for nebulization 0.5 mg inhalation BID Qty: 120 6RF Spiriva Respimat 1.25 mcg/actuation mist 2 puff inhalation DAILY Qty: 4 6RF prednisolone 5 mg tablet 5 mg PO DAILY Qty: 30 3RF guaifenesin 400 mg tablet 400 mg PO QID PRN (Reason: cough) Qty: 120 6RF albuterol sulfate 2.5 mg /3 mL (0.083 %) solution for nebulization 2.5 mg inhalation Q4H PRN (Reason: shortness of breath or wheezing) Qty: 360 0RF cholecalciferol (vitamin D3) [Vitamin D3] 25 mcg (1,000 unit) Capsule 25 mcg PO DAILY Qty: 0 levetiracetam 500 mg Tablet 500 mg PO BID rosuvastatin 40 mg Tablet 40 mg PO QPM aspirin 81 mg Tablet,Delayed Release (Dr/Ec) 81 mg PO DAILY 30 Days Qty: 30 0RF benzonatate 100 mg Capsule 200 mg PO Q8H PRN (Reason: cough) 7 Days Qty: 42 0RF amoxicillin-pot clavulanate 875-125 mg Tablet 1 tab PO BID 7 Days Qty: 14 0RF enoxaparin 80 mg/0.8 mL Syringe 80 mg SUBCUT Q12H 30 Days Qty: 48 0RF metoprolol tartrate 25 mg Tablet 25 mg PO BID@0900,2100 30 Days Qty: 60 0RF pantoprazole [Protonix] 40 mg tablet,delayed release (DR/EC) 40 mg PO BID 30 Days Qty: 60 0RF furosemide [Lasix] 20 mg tablet 40 mg PO DAILY 30 Days Qty: 60 0RF potassium chloride 20 mEq tablet extended release 20 meq PO DAILY 30 Days Qty: 30 0RF alprazolam [Xanax] 0.5 mg tablet 0.25 mg PO TID PRN (Reason: anxiety) Qty: 11 0RF Pacerone 200 mg tablet 200 mg PO DAILY Referrals: Jackie Kulkarni MD [Primary Care Provider] - Coding Level of Care Code ED Field Service Analyst for [facility]
[2023-11-05 10:43] LABS: Basophils % 0.2 %; Eosinophils # 0.4 10^3/uL (0.0-0.8); Eosinophils % 2.3 %; Hematocrit 27.2 % (37-53); Lymphocytes # 1.2 10^3/uL (0.8-4.8); Lymphocytes % 6.1 %; Mean Corpuscular HGB Conc 31.6 g/dL (30-55); Mean Corpuscular Hemoglobin 30.5 pg (27-33); Mean Corpuscular Volume 96.5 fl (82-101); Monocytes # 1.2 10^3/uL (0.2-0.9); Monocytes % 6.1 %; Neutrophils # 15.65 10^3/uL (1.8-7.7); Neutrophils % 81.8 %; Nucleated Red Blood Cells % 0.1 %; Platelet Count 199 10^3/cmm (157-399); Red Blood Count 2.82 10^6/uL (3.85-5.65); Red Cell Distribution Width 16.7 % (12.1-15.1); White Blood Count 19.11 10^3/uL (3.29-11.43)
[2023-11-05 10:55] LABS: INR 1.11 (0.8-1.2)
[2023-11-05] MEDS: iohexol 350 mg/mL 500 mL Btl (per mL) IV (11:07)
[2023-11-05 11:10] LABS: Alanine Aminotransferase 67 U/L (0-41); Albumin Level 3.1 g/dL (3.5-5.2); Alkaline Phosphatase 44 U/L (40-130); Anion Gap 9.5 (5-19); Aspartate Amino Transferase 34 U/L (0-40); Blood Urea Nitrogen 26 mg/dL (8-23); Calcium 8.5 mg/dL (8.5-10.5); Carbon Dioxide 37 mmol/L (22-29); Chloride 92 mmol/L (98-107); Globulin 2.3 g/dL (1.3-4.6); Glucose 115 mg/dL (65-115); NT Pro B Type Natriuretic Pept 715 pg/mL (0-125); Osmolality Calculated 284 mOsm/kg (285-295); Potassium 4.5 mmol/L (3.5-5.1); Sodium 134 mmol/L (136-145); Total Protein 5.4 g/dL (6.6-8.7)
[2023-11-05 11:11] LABS: Creatinine Clr Calc Pharmacy 88.5973
[2023-11-05] MEDS: piperacillin-tazobactam 3.375 GM in sodium chloride 0.9% (plus) 50 ML IV ×2 (11:30→18:37)
[2023-11-05] MEDS: vancomycin 1,000 MG in sodium chloride 0.9% 250 ML 250 MG IV (11:55)
[2023-11-05] MEDS: sodium chloride 0.9% 1,000 ML 999 ML IV (12:12)
[2023-11-05 12:49] LABS: ABG PCO2 53.4 mmHg (35-45); ABG PH Result 7.44 (7.35-7.45); Alveolar-Arterial Oxygen Gradi 16.5 mmHg (5-10); Arterial Blood Gas Hematocrit 22.4 % (42-52); Blood Gas Operator Identificat AMH; Blood Gas Sample Site Brachial, right; Blood Gas Sample Type Arterial; Carboxyhemoglobin 2.3 %THgb (0.4-20.1); HCO3 ABG 36.3 mmol/L (22-26); HGB O2 Sat 96.2 % (95-100); Ionized Calcium Level - ABG 1.1 mmol/L (1.1-1.4); Methemoglobin 0.3 % (0.4-1.5); Oxygen Device NC; Oxygen Saturation ABG 98.8; PO2 ABG 92.2 mmHg (80.0-100.0); PO2 FiO2 Ratio Arterial Blood 0; Potassium Level - ABG 3.8 mmol/L (3.5-5.0); Total Hemoglobin 7.3 g/dL (14-18)
--- NOTE | 2023-11-05 14:06 | PC.NURSE ---
Patient presented to CSU from ED via a bed at 1340.
--- NOTE | 2023-11-05 15:05 | PM.HP ---
Providers/Chief Complaint Admitting Physician: Timmy Stubbs MD Primary Care Provider: Jackie Kulkarni MD Chief Complaint: SOB History of Present Illness Kimo Hernandez is a 73 year old male a past medical history of COPD, prior history of smoking, atrial fibrillation on Eliquis, hypertension, hyperlipidemia, history of with endovascular stent, and femoral artery aneurysm, with a past medical history of peripheral vascular disease s/p angioplasty, bypass, history of blue toe syndrome left toe, history of chronic ischemia bilateral lower extremities, recent hospitalization for pneumonia/COPD exacerbation/CHF exacerbation/respiratory failure, with developing pulmonary embolism on Eliquis therapy, failure of Eliquis therapy, switch to therapeutic Lovenox, who presents [facility] due to fatigue, malaise, productive cough, shortness of breath, difficulty sleeping lower extremity edema, scant hemoptysis. [facility] he has been feeling increasingly short of breath, with productive cough, developing scant hemoptysis, difficulty sleeping with lower extreme edema, shortness of breath, denies any lightheadedness, dizziness, is taking all his medication as prescribed, no calf pain, calf swelling Review of Systems Const: Reports: fatigue and malaise; Denies: fever(s) or chills Card: Denies: chest pain Resp: Reports: dyspnea, productive cough and wheezing GI: Denies: abdominal pain : Denies: flank pain Musc: Denies: neck pain or back pain Neuro: Denies: headache(s) Endo: Denies: polyuria Medications/Allergies Home Medications Medication Instructions Recorded Confirmed Last Taken Type albuterol sulfate 90 mcg/actuation 1 inh inhalation QID PRN Shortness 10/09/20 11/05/23 02/20/23 History aerosol inhaler (ProAir HFA) Of Breath cholecalciferol (vitamin D3) 25 25 mcg PO DAILY ##0 10/26/20 11/05/23 11/04/23 History mcg (1,000 unit) capsule (Vitamin D3) levetiracetam 500 mg tablet 500 mg PO BID 02/21/23 11/05/23 11/04/23 History rosuvastatin 40 mg tablet 40 mg PO QPM 02/21/23 11/05/23 11/04/23 History prednisolone 5 mg tablet 5 mg PO DAILY #30 tabs 06/30/23 11/05/2324 Rx budesonide 0.5 mg/2 mL suspension 0.5 mg (2 mL) inhalation BID #120 08/02/23 11/05/23 11/04/23 Rx for nebulization mL tiotropium bromide 1.25 2 puff inhalation DAILY #4 grams 08/02/23 11/05/23 11/04/23 Rx mcg/actuation mist for inhalation (Spiriva Respimat) alprazolam 0.5 mg tablet (Xanax) 0.25 mg (1/2 x 0.5 mg) PO TID PRN 10/30/23 11/05/23 Unknown Rx anxiety #11 tabs amoxicillin 875 mg-potassium 1 tab PO BID 7 days #14 tabs 10/30/23 11/05/23 11/04/23 Rx clavulanate 125 mg tablet aspirin 81 mg tablet,delayed 81 mg PO DAILY 30 days #30 tabs 10/30/23 11/05/23 11/04/23 Rx release benzonatate 100 mg capsule 200 mg (2 x 100 mg) PO Q8H PRN 10/30/23 11/05/23 Unknown Rx cough 7 days #42 caps enoxaparin 80 mg/0.8 mL 80 mg (0.8 mL) SUBCUT Q12H 30 days 10/30/23 11/05/23 11/04/23 Rx subcutaneous syringe #48 mL furosemide 20 mg tablet (Lasix) 40 mg (2 x 20 mg) PO DAILY 30 days 10/30/23 11/05/23 11/04/23 Rx #60 tabs metoprolol tartrate 25 mg tablet 25 mg PO BID@0900,2100 30 days #60 10/30/23 11/05/23 11/04/23 Rx tabs pantoprazole 40 mg tablet,delayed 40 mg PO BID 30 days #60 tabs 10/30/23 11/05/23 11/04/23 Rx release (Protonix) potassium chloride 20 mEq 20 meq PO DAILY 30 days #30 tabs 10/30/23 11/05/23 11/04/23 Rx tablet,extended release albuterol sulfate 2.5 mg/3 mL 2.5 mg (3 mL) inhalation Q4H PRN 10/31/23 11/05/23 11/04/23 Rx (0.083 %) solution for nebulization shortness of breath or wheezing #360 mL guaifenesin 400 mg tablet 400 mg PO QID PRN cough #120 tabs 10/31/23 11/05/23 Unknown Rx amiodarone 200 mg tablet (Pacerone) 200 mg PO DAILY 11/05/23 11/05/23 11/04/23 History Allergies Allergy/AdvReac Type Severity Reaction Status Date / Time No Known Allergies Allergy Verified 11/05/23 10:30 PFSH Acute PFSH: Medical History Peripheral arterial disease Benign essential HTN Iliac artery aneurysm, bilateral DA (obstructive sleep apnea) Hx of seizure disorder Depression Dyspnea on exertion Popliteal artery aneurysm Spinal stenosis Tinnitus Sleep apnea in adult A-fib COPD (chronic obstructive pulmonary disease) Surgical History History of PTCA S/P hernia repair incisional History of vascular surgery rt and left leg 2019 History of colonoscopy with polypectomy 2018 History of AAA (abdominal aortic aneurysm) repair 2010 History of left inguinal hernia repair 2016 Family History Mother Cancer Diabetes Father CAD (coronary artery disease) Cancer Chronic kidney disease (CKD) Diabetes Brother No problems noted. Sister No problems noted. Grandfather Lung disease Denies family history of Clotting disorder Dementia Suicide Anesthesia complication Bleeding disorder Stroke Social History Smoking and tobacco/nicotine status: former use of tobacco/nicotine Quit status (tobacco/nicotine): has quit using Year quit tobacco: May 2021 Former quit date comment: 2ppd X 50 Alcohol intake: never Substance/Drug Use: never Vitals/I&O/Wt Last Vital Signs Temp 98.4 F 11/05/23 10:25 Pulse 88 11/05/23 13:34 Resp 17 11/05/23 13:34 BP 103/67 11/05/23 13:34 Pulse Ox 94 11/05/23 13:34 O2 Del Method Nasal Cannula 11/05/23 13:22 O2 Flow Rate 6 11/05/23 13:22 11/05/23 11/05/23 11/05/23 06:59 14:59 22:59 Intake Total 1300 / 1300 Balance 1300 / 1300 Weight last 48 hrs Weight 84.368 kg Physical Exam Const: COMMON NORMALS: no acute distress and patient oriented x3 HENMT: COMMON NORMALS: normocephalic HEAD & SCALP: normocephalic Eye: COMMON NORMALS: Equal, round and reactive pupils present and EOMs intact bilaterally Neck/C-Spine: COMMON NORMALS: no JVD Lymph: LYMPHATIC: no lymphadenopathy noted Resp: COMMON NORMALS: normal respiratory effort, No retractions and No use of accessory muscles AUSCULTATION: crackles and wheezes Cardio: COMMON NORMALS: no JVD, regular rate, regular rhythm, S1 normal heart sound present and S2 normal heart sound present RATE: regular rate RHYTHM: regular rhythm HEART SOUNDS: S1 normal heart sound present and S2 normal heart sound present GI: COMMON NORMALS: Normal to inspection, nondistended, normoactive bowel sounds present, Soft to palpation and non-tender Extremity: NARRATIVE EXTREMITY EXAM: DP PT pulses palpable, bilateral extremities, slightly cool, not clammy, slight bluish hue, 2+ pitting edema Neuro: COMMON NORMALS: patient oriented x3, CN's II-XII intact bilaterally, moves all extremities and no focal motor deficits Psych: COMMON NORMALS: mental status grossly normal Data 11/05/23 10:36 11/05/23 10:36 Micro: Microbiology 11/05/23 11:25 Blood Culture - Preliminary Blood SPECIMEN COLLECTED 11/05/23 11:27 Blood Culture - Preliminary Blood SPECIMEN COLLECTED A&P Assessment and plan (1) Acute hypoxic respiratory failure: (2) Acute exacerbation of chronic obstructive pulmonary disease (COPD): (3) Critical limb ischemia of both lower extremities: (4) Chronic anticoagulation: (5) Bilateral pulmonary embolism: (6) Pulmonary hypertension: (7) H/O endovascular stent graft for abdominal aortic aneurysm: (8) Blue toe syndrome of left lower extremity: (9) CHF exacerbation: (10) Acute anemia: (11) Healthcare-associated pneumonia: (12) Hemoptysis: Plan Acute hypoxic respiratory failure ? Multifactorial ? Secondary to pneumonia, healthcare associated pneumonia ? Recent history of failure of anticoagulation on Eliquis therapy with bilateral PEs, currently on [facility]ox [facility] the jail, given scant hemoptysis and anemia switch to heparin drip ? CHF exacerbation, elevated BNP crackles on exam 2+ pitting edema ? Secondary to COPD exacerbation ? Plan ? Monitor in CSU closely ? Currently on 6 L, BiPAP at night ? Vancomycin ? Zosyn ? Sputum cultures ? Getting been scant hemoptysis, Eldahiralemerson Perles scheduled 200 mg 3 times daily scheduled, also Tylenol with codeine in addition as needed ? Solu-Medrol 125 followed by 40 mg IV every 6 hours ? DuoNeb ? Budesonide ? Lasix 40 mg IV once, followed her creatinine monitor follow BMP ? Heparin drip ? Blood cultures Healthcare associated pneumonia ? As above History of bilateral PEs on Eliquis during last hospitalization failure of anticoagulation currently on therapeutic Lovenox at jail ? Given scant hemoptysis and anemia switch to heparin drip CHF exacerbation ? As above COPD exacerbation as above Scant hemoptysis, ? As above History of chronic limb ischemia ? Arterial ultrasound during last hospitalization FINDINGS Rt upper thigh bi pass is normal and lt lower leg bypass is normal Mild to moderate diffuse plaques in the iliac and femoral arteries bilaterally. No flow was detected in the rampart popliteal artery. Patent femoral-popliteal ?bypass Patent infrapopliteal vessels Resting LUCRECIA 0.8 on the right side and 1.0 on the left side CONCLUSIONS 1. Abnormal resting LUCRECIA on the right side, suggestive of mild to moderate peripheral artery disease. Features of total occlusion of the popliteal artery with patent femoral-popliteal? Bypass. 2. Normal resting LUCRECIA on the left side. Features of total occlusion of the popliteal artery with patent femoral-popliteal? bypass. Comparison with the previous study from 08/15/2023 is difficult because of the difference in the technical quality -Reviewed bio diagram of bilateral lower extremities, from [facility], on the right side patient has a patent right [employer] stent, patent right LOCKSTITCH FRONT [employer]KER to trunk bypass, patent left as they tip trunk bypass, patent right TP trunk stent, chronic occlusion of the right SFA to popliteal, left SFA to popliteal, RBI elevated due to medial calcinosis, on the left she has aneurysmal dilatation it extends into SFA measuring 4 x 4 cm, sluggish diminished flow throughout, moderate arthrosclerosis throughout patent vessels accessible to study -During his last hospitalization when he would become hypoxic bilateral lower extremities with look more blue, would have mottling, would develop blue toe syndrome on the left toe -Patient is in hypercoagulable state, given that he developed a PE on anticoagulant therapy, during last hospitalization chiropractic assistant consulted, recommended medical management ? For now continue heparin drip ? Continue to monitor for mottling, blue toe syndrome continue to monitor DP PT pulses ? Continue aspirin, statin, heparin drip Acute anemia ? Etiology multifactorial ? Iron studies, ferritin ? Monitor hemoglobin every 6 hours as patient is on heparin drip ? Monitor scant hemoptysis ? Protonix, Carafate Heparin drip for DVT prophylaxis, ? CODE STATUS discussed in detail with patient, he absolutely does not want CPR for any reason, he wants everything else done, including defibrillation, drugs per ACLS, ICU admission, intubation, mechanical ventilation Attestations Medical Necessity Statement*: Patient requires hospitalization, inpatient, greater than 2 midnights, for acute hypoxic respiratory failure, secondary to COPD, CHF, pneumonia, healthcare associate pneumonia, history of chronic limb ischemia Diagnoses Acute hypoxic respiratory failure J96.01 Acute exacerbation of chronic obstructive pulmonary disease (COPD) J44.1 Critical limb ischemia of both lower extremities I70.223 Chronic anticoagulation Z79.01 Bilateral pulmonary embolism I26.99 Pulmonary hypertension I27.20 H/O endovascular stent graft for abdominal aortic aneurysm Z95.828 Blue toe syndrome of left lower extremity I75.022 CHF exacerbation I50.9 Acute anemia D64.9 Healthcare-associated pneumonia J18.9 Hemoptysis R04.2
[2023-11-05] MEDS: ipratropium-albuterol 3 mL Neb INHALATION ×2 (15:34→20:38)
[2023-11-05] MEDS: methylPREDNISolone sod succ 125 mg/2 mL INJ IVP (15:35)
[2023-11-05] MEDS: sucralfate 1 gm/10 mL Oral Liq UDC PO ×2 (15:35→20:42)
[2023-11-05] MEDS: CLONazepam 0.5 mg Tablet PO (15:37)
[2023-11-05] MEDS: pantoprazole 40 mg SDV IVP (15:37)
[2023-11-05] MEDS: FUROsemide 10 mg/mL SDV 4mL 40 MG IVP (15:37)
[2023-11-05] MEDS: benzonatate 100 mg Capsule 200 MG PO ×2 (15:37→20:42)
[2023-11-05 15:59] LABS: Hematocrit 24.8 % (37-53); Platelet Count 192 10^3/cmm (157-399)
[2023-11-05 16:18] LABS: Troponin(5th) Baseline 26 ng/L (0-15)
[2023-11-05 16:19] LABS: Lactic Sepsis W/Reflex 1.5 mmol/L (0.5-2.2)
--- NOTE | 2023-11-05 16:27 | ECG_ITS ---
[facility] Test Date: 2023-11-05 Pat Name: Kimo Hernandez Department: Room: 105 Gender: Male Rn Home Health: : 1950 Requested By: Timmy Stubbs Order Number: [id number] Ben MD: Andrew Petersen M.D. Measurements Intervals [place] Rate: 87 P: 0 ND: 0 QRS: 53 QRSD: 107 T: -18 QT: 398 QTc: 480 Interpretive Statements ATRIAL FIBRILLATION NONSPECIFIC ST & T-WAVE ABNORMALITY Compared to ECG 11/05/2023 10:53:54 No significant changes Electronically Signed On 11-05-2023 22:52:06 CDT by Andrew Petersen M.D. [id number]
[2023-11-05 16:33] LABS: Ferritin 340 ng/mL (30-400); Iron 59 ug/dL (59-158)
[2023-11-05 18:10] LABS: Procalcitonin 0.15 ng/mL (0-0.5)
[2023-11-05 18:26] LABS: Troponin 5 2HR 27.08 ng/L (0-15); Troponin 5 2HR Delta 1.08 ABS# (0-10)
[2023-11-05] MEDS: heparin drip 25,000 UNIT/500 ML PREMIX 26 UNIT IV (20:07)
[2023-11-05] MEDS: heparin 5,000 unit/mL INJ 1 mL IV (20:08)
[2023-11-05] MEDS: budesonide 0.5 mg/2 mL Neb INHALATION (20:38)
[2023-11-05] MEDS: atorvastatin 40 mg Tablet PO (20:42)
[2023-11-05 22:17] LABS: Hematocrit 23.3 % (37-53)
[2023-11-05 22:31] LABS: Troponin 5 6HR 23.65 ng/L (0-15)
[2023-11-05 22:36] LABS: Troponin 5 6HR Delta -2.35 ng/L (0-12)
--- NOTE | 2023-11-05 23:23 | ECG_ITS ---
[facility] Test Date: 2023-11-05 Pat Name: Kimo Hernandez Department: Room: 105 Gender: Male Copy Clerk: : 1950 Requested By: Timmy Stubbs Order Number: [id number] Ben MD: Andrew Petersen M.D. Measurements Intervals [place] Rate: 83 P: 0 CO: 0 QRS: 54 QRSD: 101 T: 1 QT: 401 QTc: 472 Interpretive Statements ATRIAL FIBRILLATION LOW QRS VOLTAGE IN EXTREMITY LEADS [QRS DEFLECTION < 0.5 mV IN LIMB LEADS] NONSPECIFIC ST & T-WAVE ABNORMALITY ABNORMAL RHYTHM ECG Compared to ECG 11/05/2023 16:27:18 Low QRS voltage now present T-wave abnormality still present Electronically Signed On 11-06-2023 22:52:13 CDT by Andrew Petersen M.D. [id number]
[2023-11-05] MEDS: vancomycin 1,500 MG/300 ML PIGGYBACK 200 MG IV (23:29)
[2023-11-06] VITALS (22 sets, daily range): BP systolic 91–122; BP diastolic 58–89; PULSE 77–111; RESP 16–30; TEMP 36.1–36.6; O2SAT 85–98
[2023-11-06] MEDS: ipratropium-albuterol 3 mL Neb INHALATION ×6 (00:10→21:12)
[2023-11-06] MEDS: piperacillin-tazobactam 3.375 GM in sodium chloride 0.9% (plus) 50 ML IV ×3 (01:12→18:08)
[2023-11-06 02:24] LABS: Basophils % 0.1 %; Eosinophils % 0.1 %; Hematocrit 22.6 % (37-53); Lymphocytes # 0.3 10^3/uL (0.8-4.8); Lymphocytes % 1.8 %; Mean Corpuscular HGB Conc 31.9 g/dL (30-55); Mean Corpuscular Hemoglobin 30.3 pg (27-33); Mean Platelet Volume 10.2 fL (7.4-10.4); Monocytes # 0.1 10^3/uL (0.2-0.9); Monocytes % 0.7 %; Neutrophils # 14.08 10^3/uL (1.8-7.7); Nucleated Red Blood Cells % 0.2 %; Platelet Count 161 10^3/cmm (157-399); Red Blood Count 2.38 10^6/uL (3.85-5.65); White Blood Count 14.82 10^3/uL (3.29-11.43)
[2023-11-06 02:54] LABS: Anion Gap 9.5 (5-19); Blood Urea Nitrogen 26 mg/dL (8-23); Calcium 8.3 mg/dL (8.5-10.5); Carbon Dioxide 35 mmol/L (22-29); Chloride 93 mmol/L (98-107); Creatinine Clr Calc Pharmacy 92.3037; Glucose 171 mg/dL (65-115); NT Pro B Type Natriuretic Pept 703 pg/mL (0-125); Osmolality Calculated 285 mOsm/kg (285-295); Potassium 4.5 mmol/L (3.5-5.1); Sodium 133 mmol/L (136-145)
[2023-11-06] MEDS: pantoprazole 40 mg SDV IVP ×2 (03:05→14:37)
[2023-11-06] MEDS: sucralfate 1 gm/10 mL Oral Liq UDC PO ×4 (03:05→21:16)
[2023-11-06 03:10] LABS: Partial Thromboplastin Time > 250.0 SECONDS (23.9-36.7)
[2023-11-06] MEDS: CLONazepam 0.5 mg Tablet PO ×3 (03:13→21:17)
--- NOTE | 2023-11-06 04:10 | PC.NURSE ---
with new ptt result- hold for 4 hrs and decrease by 2 units for new dosing per dr madison.
[2023-11-06] MEDS: methylPREDNISolone sod succ 40 mg/mL INJ IVP ×2 (05:55→11:32)
[2023-11-06] MEDS: budesonide 0.5 mg/2 mL Neb INHALATION ×2 (07:56→21:13)
[2023-11-06] MEDS: benzonatate 100 mg Capsule 200 MG PO ×3 (09:22→21:16)
[2023-11-06] MEDS: aspirin 81 mg EC Tablet PO (09:22)
[2023-11-06 10:00] LABS: Partial Thromboplastin Time 60.7 SECONDS (23.9-36.7)
[2023-11-06 10:53] LABS: Hematocrit 24.1 % (37-53)
--- NOTE | 2023-11-06 11:41 | P.PN_ITS ---
Subjective 2 Subjective: Patient is endorsing feeling better No active foot pain No discoloration of foot improved this morning however feet are cold Switch heparin to Lovenox FOBT negative Hemoglobin 7.8 Vitals/I&O/Wt Last Vital Signs Temp 97.9 F 11/06/23 11:36 Pulse 81 11/06/23 11:36 Resp 25 H 11/06/23 11:36 BP 103/72 11/06/23 11:36 Pulse Ox 93 11/06/23 11:36 O2 Del Method Nasal Cannula 11/06/23 11:01 O2 Flow Rate 5 11/06/23 11:01 FiO2 35 11/06/23 03:22 11/05/23 11/06/23 11/06/23 22:59 06:59 14:59 Intake Total 46.875 / 1346.875 554.533 / 1901.408 0 / 0 Output Total 1100 / 1100 250 / 1350 Balance -1053.125 / 246.875 304.533 / 551.408 0 / 0 Weight last 48 hrs Weight 91.172 kg Weight 92.334 kg Weight 84.368 kg Physical Exam 2 Narrative: Awake and alert Assessment Currently on 6 L Lower extremity no acute sign of ischemic ulcer Feet are cold however no blue discoloration or mottling Patient is not experiencing conversational dyspnea No audible stridor or wheezing S1, S2 Abdomen soft Nonfocal neuroexam Urinary Catheter Management: Hurd: Cath Placed During This Visit: yes Reason for Continuing Indwelling Catheter: Accurate Measurement of Urinary Output in Critically Ill Patients Urinary Catheter Date of Insertion: 11/05/23 Urinary Catheter Time of Insertion: 16:27 Data 11/06/23 10:38 11/06/23 02:06 Micro: Microbiology 11/05/23 11:27 Blood Culture - Preliminary Blood NEGATIVE TO DATE 11/05/23 11:25 Blood Culture - Preliminary Blood NEGATIVE TO DATE 11/06/23 04:19 Occult Blood (FIT) - Final Stool Routine Collection A&P Assessment and plan (1) Pulmonary hypertension: (2) Persistent atrial fibrillation: (3) Peripheral arterial disease: (4) Iliac artery aneurysm, bilateral: (5) Popliteal thrombosis: (6) Blue toe syndrome of left lower extremity: (7) Acute anemia: (8) Pneumonia: Qualifiers: Laterality: left Lung location: lower lobe of lung Pneumonia type: due to unspecified organism Qualified Code(s): J18.9 - Pneumonia, unspecified organism (9) Acute on chronic respiratory failure with hypoxia and hypercapnia: (10) Healthcare-associated pneumonia: (11) Hemoptysis: Plan Acute hypoxic respiratory failure Hospital-acquired pneumonia continue broad-spectrum antibiotics Afebrile Cultures negative At baseline requires 5 L currently on 6 L Uses BiPAP at night History of bilateral PE I will switch him to therapeutic Lovenox No active hemoptysis Acute anemia Hemoglobin has not changed drastically Blood pressure is stable I will discontinue heparin and switch him to therapeutic Lovenox FOBT negative for GI bleed Could be anemia of chronic disease Chronic limb ischemia No plan of intervention by cardiology Medical management No active sign of vascular ischemic ulcer Patient will go back to assisted likely on Monday Monitor hemoglobin for now Will transfuse if hemoglobin below 7.5 Limited resuscitation I did discuss goals of care again with the patient patient was opting for intubation and defibrillation but not chest compressions, I explained what chest compression is during CODE BLUE situations, patient stated that he will likely discuss with his daughter on Monday and let us know Cardiac diet Attestations 2 Medical Necessity Statement*: Likely discharge on Monday Diagnoses Pulmonary hypertension I27.20 Persistent atrial fibrillation I48.19 Peripheral arterial disease I73.9 Iliac artery aneurysm, bilateral I72.3 Popliteal thrombosis I74.3 Blue toe syndrome of left lower extremity I75.022 Acute anemia D64.9 Pneumonia J18.9 Laterality: left Lung location: lower lobe of lung Pneumonia type: due to unspecified organism Acute on chronic respiratory failure with hypoxia and hypercapnia J96.21; J96.22 Healthcare-associated pneumonia J18.9 Hemoptysis R04.2
[2023-11-06] MEDS: enoxaparin 100 mg/mL Syringe 90 MG SUBCUT (12:03)
[2023-11-06] MEDS: vancomycin 1,500 MG/300 ML PIGGYBACK 200 MG IV (15:30)
[2023-11-06] MEDS: atorvastatin 40 mg Tablet PO (21:17)
[2023-11-07] VITALS (22 sets, daily range): BP systolic 93–115; BP diastolic 62–76; PULSE 74–113; RESP 18–29; TEMP 36.3–36.8; O2SAT 90–99
[2023-11-07] MEDS: ipratropium-albuterol 3 mL Neb INHALATION ×7 (00:50→23:25)
[2023-11-07] MEDS: piperacillin-tazobactam 3.375 GM in sodium chloride 0.9% (plus) 50 ML IV ×3 (01:27→17:29)
[2023-11-07] MEDS: enoxaparin 100 mg/mL Syringe 90 MG SUBCUT ×2 (01:27→11:26)
[2023-11-07 03:36] LABS: Basophils % 0.1 %; Hematocrit 23.9 % (37-53); Lymphocytes # 0.3 10^3/uL (0.8-4.8); Lymphocytes % 1.4 %; Mean Corpuscular HGB Conc 32.2 g/dL (30-55); Mean Corpuscular Hemoglobin 30.3 pg (27-33); Mean Corpuscular Volume 94.1 fl (82-101); Mean Platelet Volume 10.2 fL (7.4-10.4); Monocytes # 0.8 10^3/uL (0.2-0.9); Monocytes % 3.2 %; Neutrophils # 23.21 10^3/uL (1.8-7.7); Neutrophils % 94.2 %; Nucleated Red Blood Cells # 0.2 /100WBC; Nucleated Red Blood Cells % 0.6 %; Platelet Count 163 10^3/cmm (157-399); Red Blood Count 2.54 10^6/uL (3.85-5.65); Red Cell Distribution Width 16.7 % (12.1-15.1); White Blood Count 24.63 10^3/uL (3.29-11.43)
[2023-11-07] MEDS: sucralfate 1 gm/10 mL Oral Liq UDC PO ×4 (03:46→21:02)
[2023-11-07] MEDS: pantoprazole 40 mg SDV IVP ×2 (03:49→16:16)
[2023-11-07 04:00] LABS: Anion Gap 10.1 (5-19); Blood Urea Nitrogen 24 mg/dL (8-23); Calcium 8.9 mg/dL (8.5-10.5); Carbon Dioxide 35 mmol/L (22-29); Chloride 93 mmol/L (98-107); Glucose 133 mg/dL (65-115); Osmolality Calculated 284 mOsm/kg (285-295); Potassium 4.1 mmol/L (3.5-5.1); Sodium 134 mmol/L (136-145)
[2023-11-07] MEDS: vancomycin 1,500 MG/300 ML PIGGYBACK 200 MG IV ×2 (04:37→16:15)
[2023-11-07] MEDS: budesonide 0.5 mg/2 mL Neb INHALATION ×2 (07:45→20:29)
--- NOTE | 2023-11-07 09:15 | PC.CHAP ---
Pastoral Care Encounter/Spiritual Assessment Type of Contact [] Declined technology applications consultant visit [] Patient/Family/Request visit [] Outpatient visit [] Follow-up visit [] Physician referral [] Code/Alert [x] Routine visit [] Staff referral [] Actively dying [] Patient sleeping [] Family support [] [] Out of room [] Palliative care [] [] Receiving care in room [] Pre-surgical visit [] Trauma [] Long length of stay [] ICU visit [] Other: Relational/Emotional Strength [x] Patient feels connected with others/family/visitors/staff [] Distress [] Loneliness/isolation [] Abandonment Spirituality of Patient [x] Person of Jessie [] Attends Taoism of their Jessie [x] Believes in Prayer [] Reads Bible or Denominational materials [] There are Spiritual issues to be addressed 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 Interventions [x] Prayer [x] Active listening [] Non-anxious presence [x] Spiritual/emotional support [] Crisis/trauma care [] Spiritual counseling [] Bereavement support [] Provided bereavement packet [] Provided Bible/devotional materials [] Provided toy/stuffed animal, coloring book to patient or family member [] Provided Communion [] Anointing/[place] [] Salvation [x] Completed spiritual assessment [] Other: Impact on Illness or Injury [] Angry [] Fearful [] Anxious [] Often cries [] Exhaustion [] Unable to work [] Unable to attend advent [] Unable to walk/stand [] Unable to read [] Unable to drive [] Unable to eat/drink [] Unable to sleep [] Unable to be with family [] Patient intubated [] Other: Summary Time spent with patient 5 min
[2023-11-07] MEDS: benzonatate 100 mg Capsule 200 MG PO ×3 (09:27→21:03)
[2023-11-07] MEDS: CLONazepam 0.5 mg Tablet PO ×2 (09:27→16:20)
[2023-11-07] MEDS: aspirin 81 mg EC Tablet PO (09:28)
--- NOTE | 2023-11-07 09:51 | XR_ITS ---
WS: [id number] XR chest 1V portable [id number] REASON FOR EXAM: chf FINDINGS: Compared to the previous examination of 11/05/2023, there has been resolution of interstitial lung opa cities in the upper lung field. In the lower lung field the reticular interstitial lung opacities appear more consolidated. This may be due to atelectasis in the left lower lung. No other significant interval change or new finding. XR/XR chest 1V portable [id number] IMPRESSION: Resolution of upper lung opacities with more focal consolidation in the left lo wer lung as above.
--- NOTE | 2023-11-07 09:51 | P.PN_ITS ---
Subjective 2 Subjective: This morning patient is requiring 5 L however he is experiencing increased work of breathing Audible crackles Requested chest x-ray and IV Lasix Vitals/I&O/Wt Last Vital Signs Temp 97.8 F 11/07/23 07:37 Pulse 102 H 11/07/23 08:32 Resp 25 H 11/07/23 07:45 BP 115/73 11/07/23 07:37 Pulse Ox 95 11/07/23 08:32 O2 Del Method Nasal Cannula 11/07/23 07:45 O2 Flow Rate 5 11/07/23 07:45 FiO2 35 11/07/23 08:32 11/06/23 11/07/23 11/07/23 22:59 06:59 14:59 Intake Total 710 / 2245.467 350 / 2595.467 240 / 240 Output Total 950 / 950 250 / 1200 Balance -240 / 1295.467 100 / 1395.467 240 / 240 Weight last 48 hrs Weight 98.611 kg Weight 91.172 kg Weight 92.334 kg Weight 84.368 kg Physical Exam 2 Narrative: Signs of fluid overload present Crackles evident on auscultation Pleasant cooperative Currently on 5 L Eating breakfast Lower extremity trace edema Feet are not cold as compared to yesterday, the feet are warm I do not see any sign of active ulcer Abdomen soft Urinary Catheter Management: Hurd: Cath Placed During This Visit: yes Reason for Continuing Indwelling Catheter: Accurate Measurement of Urinary Output in Critically Ill Patients Urinary Catheter Date of Insertion: 11/05/23 Urinary Catheter Time of Insertion: 16:27 Data 11/07/23 02:36 11/07/23 02:36 Micro: Microbiology 11/05/23 11:27 Blood Culture - Preliminary Blood NEGATIVE TO DATE 11/05/23 11:25 Blood Culture - Preliminary Blood NEGATIVE TO DATE A&P Assessment and plan (1) Benign essential HTN: (2) CHF (congestive heart failure): (3) Pulmonary hypertension: (4) Persistent atrial fibrillation: (5) Blue toe syndrome of left lower extremity: (6) Pneumonia: Qualifiers: Laterality: left Lung location: lower lobe of lung Pneumonia type: due to unspecified organism Qualified Code(s): J18.9 - Pneumonia, unspecified organism (7) Healthcare-associated pneumonia: Plan Acute on chronic hypoxic respite failure Worsening leukocytosis Hospital-acquired pneumonia Continue antibiotics There were no crackles today Will give him IV Lasix Repeat x-ray today Has been using BiPAP at nighttime Bilateral PE failed Eliquis, will discharge on Lovenox Hemoptysis mild in nature Acute anemia I do not think hemoptysis is contributing to anemia Hemoglobin has been stable FOBT negative Status post 1 unit PRBC Seems to be anemia of chronic disease Chronic limb ischemia Feet are warm no sign of vascular ischemia Worsening left-sided consolidation Underlying CHF Continue Lasix and antibiotics Limited resuscitation: Will discuss goals of care again once daughter is in the room Patient is maximal assist only able to eat on his own otherwise require a lot of assistance to get out of bed to transfer out of bed to chair Attestations 2 Medical Necessity Statement*: Continue hospitalization not ready to be discharged Diagnoses Benign essential HTN I10 CHF (congestive heart failure) I50.9 Pulmonary hypertension I27.20 Persistent atrial fibrillation I48.19 Blue toe syndrome of left lower extremity I75.022 Pneumonia J18.9 Laterality: left Lung location: lower lobe of lung Pneumonia type: due to unspecified organism Healthcare-associated pneumonia J18.9
[2023-11-07] MEDS: potassium chloride ER 20 mEq Tablet PO (11:26)
[2023-11-07] MEDS: amiodarone 200 mg Tablet PO (11:26)
[2023-11-07] MEDS: FUROsemide 10 mg/mL SDV 2mL 20 MG IVP (11:26)
[2023-11-07] MEDS: levETIRAcetam 500 mg Tablet PO (17:29)
[2023-11-07] MEDS: atorvastatin 40 mg Tablet PO (21:03)
[2023-11-07] MEDS: metoprolol tartrate 25 mg Tablet PO (21:03)
[2023-11-08] VITALS (26 sets, daily range): BP systolic 87–116; BP diastolic 54–72; PULSE 70–97; RESP 20–99; TEMP 36.4–36.9; O2SAT 90–100
[2023-11-08] MEDS: enoxaparin 100 mg/mL Syringe 90 MG SUBCUT ×2 (00:37→10:55)
[2023-11-08] MEDS: piperacillin-tazobactam 3.375 GM in sodium chloride 0.9% (plus) 50 ML IV ×3 (02:06→17:43)
[2023-11-08 03:35] LABS: Basophils % 0.1 %; Eosinophils % 0.1 %; Hematocrit 22.7 % (37-53); Lymphocytes # 0.7 10^3/uL (0.8-4.8); Lymphocytes % 3.2 %; Mean Corpuscular HGB Conc 31.7 g/dL (30-55); Mean Corpuscular Hemoglobin 30.9 pg (27-33); Mean Corpuscular Volume 97.4 fl (82-101); Mean Platelet Volume 10.5 fL (7.4-10.4); Monocytes # 1.4 10^3/uL (0.2-0.9); Monocytes % 6.2 %; Neutrophils # 19.69 10^3/uL (1.8-7.7); Neutrophils % 88.6 %; Nucleated Red Blood Cells # 0.8 /100WBC; Nucleated Red Blood Cells % 3.5 %; Platelet Count 164 10^3/cmm (157-399); Red Blood Count 2.33 10^6/uL (3.85-5.65); Red Cell Distribution Width 18.3 % (12.1-15.1); White Blood Count 22.22 10^3/uL (3.29-11.43)
[2023-11-08 03:53] LABS: Vancomycin Trough 21.1 ug/mL (10-15)
[2023-11-08 03:58] LABS: Anion Gap 8.8 (5-19); Blood Urea Nitrogen 25 mg/dL (8-23); Calcium 8.9 mg/dL (8.5-10.5); Carbon Dioxide 34 mmol/L (22-29); Chloride 94 mmol/L (98-107); Creatinine Clr Calc Pharmacy 95.2242; Glucose 88 mg/dL (65-115); Osmolality Calculated 280 mOsm/kg (285-295); Potassium 3.8 mmol/L (3.5-5.1); Sodium 133 mmol/L (136-145)
[2023-11-08] MEDS: pantoprazole 40 mg SDV IVP ×2 (04:07→15:05)
[2023-11-08] MEDS: CLONazepam 0.5 mg Tablet PO ×3 (04:08→21:43)
[2023-11-08] MEDS: sucralfate 1 gm/10 mL Oral Liq UDC PO ×4 (04:08→21:43)
[2023-11-08] MEDS: ipratropium-albuterol 3 mL Neb INHALATION ×6 (04:12→23:40)
[2023-11-08] MEDS: vancomycin 1,250 MG/250 ML PIGGYBACK 166.669999999999987 MG IV (05:29)
[2023-11-08] MEDS: budesonide 0.5 mg/2 mL Neb INHALATION ×2 (07:41→20:11)
[2023-11-08] MEDS: amiodarone 200 mg Tablet PO (09:35)
[2023-11-08] MEDS: benzonatate 100 mg Capsule 200 MG PO ×3 (09:35→21:42)
[2023-11-08] MEDS: metoprolol tartrate 25 mg Tablet PO (09:36)
[2023-11-08] MEDS: potassium chloride ER 20 mEq Tablet PO (09:36)
[2023-11-08] MEDS: aspirin 81 mg EC Tablet PO (09:36)
[2023-11-08] MEDS: levETIRAcetam 500 mg Tablet PO ×2 (09:36→17:45)
[2023-11-08] MEDS: FUROsemide 20 mg Tablet 40 MG PO (09:36)
--- NOTE | 2023-11-08 09:56 | PC.SOCIAL ---
IMM Update pg 2 of IMM updated and reviewed w/ patient. Copy provided and copy dated, initialed and placed in chart.
--- NOTE | 2023-11-08 10:01 | P.PN_ITS ---
Subjective 2 Subjective: Patient this morning was more short of breath Hemoglobin is still low I will give him 1 unit PRBC Daughter is at the bedside Patient stating that he is leaning towards DNR/DNI would like to discuss further with his daughter and then let us know about his final decision He is not complain of chest pain however endorsing shortness of breath He was not able to eat his breakfast this morning Vitals/I&O/Wt Last Vital Signs Temp 97.9 F 11/08/23 07:22 Pulse 88 11/08/23 09:56 Resp 24 H 11/08/23 09:33 BP 95/67 11/08/23 09:33 Pulse Ox 94 11/08/23 09:56 O2 Del Method BiPAP 11/08/23 07:42 O2 Flow Rate 5 11/07/23 07:45 FiO2 35 11/08/23 09:56 11/07/23 11/08/23 11/08/23 22:59 06:59 14:59 Intake Total 590 / 1220 490 / 1710 360 / 360 Output Total 24289 / 15044 700 / 38089 Balance -9410 / -8780 -210 / -8990 360 / 360 Weight last 48 hrs Weight 97.069 kg Weight 98.611 kg Physical Exam 2 Narrative: Patient is showing signs of labored breathing Currently on BiPAP However able to answer questions Awake and alert Drowsy Daughter at the bedside Nonfocal neuroexam Weakness of extremities noted Clinical signs of fluid overload Crackles noted on lung auscultation Abdomen soft however distended Hurd catheter in place Urinary Catheter Management: Hurd: Cath Placed During This Visit: yes Reason for Continuing Indwelling Catheter: Accurate Measurement of Urinary Output in Critically Ill Patients Urinary Catheter Date of Insertion: 11/05/23 Urinary Catheter Time of Insertion: 16:27 Data 11/08/23 02:47 11/08/23 02:47 Micro: Microbiology 11/06/23 21:50 Gram Stain - Final Sputum - Expectorated Sputum A&P Assessment and plan (1) CHF (congestive heart failure): (2) Pulmonary hypertension: (3) Acute anemia: (4) COPD (chronic obstructive pulmonary disease): Qualifiers: COPD type: chronic bronchitis Chronic bronchitis type: unspecified Qualified Code(s): J42 - Unspecified chronic bronchitis (5) Acute on chronic respiratory failure with hypoxia and hypercapnia: (6) Hemoptysis: (7) Cough: (8) Healthcare-associated pneumonia: Plan Acute on chronic hypoxic respiratory failure Concern for aspiration pneumonia with underlying hospital-acquired pneumonia Continue broad-spectrum antibiotics Will request speech therapy as well Significant rhonchi noted A-fib without RVR Discontinue aspirin continue therapeutic Lovenox I will continue amiodarone, secondary to low blood pressure hold metoprolol for now Acute anemia Normocytic anemia Anemia of chronic disease FOBT negative Will give him second unit PRBC today Chronic limb ischemia: No active/acute worsening Goals of care discussed with the patient in front of his daughter, he is leaning towards DNR/DNI, will like to make his final decision by noon And let us know Preserved action fraction heart exacerbation Continue Lasix Maximal assist: Not ready to be discharged: Currently requiring BiPAP for increased work of breathing Today my plan is to give him 1 unit PRBC, continue Lasix Request speech therapy Attestations 2 Medical Necessity Statement*: Continue hospitalization not ready to be discharged yet Diagnoses CHF (congestive heart failure) I50.9 Pulmonary hypertension I27.20 Acute anemia D64.9 Chronic bronchitis, unspecified chronic bronchitis type J42 COPD type: chronic bronchitis Chronic bronchitis type: unspecified Acute on chronic respiratory failure with hypoxia and hypercapnia J96.21; J96.22 Hemoptysis R04.2 Cough R05.9 Healthcare-associated pneumonia J18.9
--- NOTE | 2023-11-08 11:15 | PC.NURSE ---
Unit of PRBC's started at 50 ml at this time. VSS. Pt tolerating infusion well. No S/S of hemolytic reaction present.
[2023-11-08] MEDS: vancomycin 1,250 MG/250 ML PIGGYBACK 166.599999999999994 MG IV (17:44)
[2023-11-08] MEDS: atorvastatin 40 mg Tablet PO (21:43)
[2023-11-09] VITALS (18 sets, daily range): BP systolic 90–123; BP diastolic 59–77; PULSE 72–97; RESP 27–34; TEMP 36.3–36.7; O2SAT 92–98; BMI 30.7
[2023-11-09] MEDS: enoxaparin 100 mg/mL Syringe 90 MG SUBCUT (01:30)
[2023-11-09] MEDS: piperacillin-tazobactam 3.375 GM in sodium chloride 0.9% (plus) 50 ML IV ×3 (01:32→17:32)
[2023-11-09] MEDS: ipratropium-albuterol 3 mL Neb INHALATION ×5 (03:28→19:57)
[2023-11-09] MEDS: sucralfate 1 gm/10 mL Oral Liq UDC PO ×3 (03:29→20:51)
[2023-11-09] MEDS: pantoprazole 40 mg SDV IVP ×2 (03:29→14:47)
[2023-11-09 04:09] LABS: Basophils % 0.1 %; Eosinophils # 0.1 10^3/uL (0.0-0.8); Eosinophils % 0.4 %; Lymphocytes # 0.7 10^3/uL (0.8-4.8); Lymphocytes % 4.1 %; Mean Corpuscular Volume 96.9 fl (82-101); Mean Platelet Volume 10.2 fL (7.4-10.4); Monocytes # 1.1 10^3/uL (0.2-0.9); Monocytes % 6.3 %; Neutrophils # 14.88 10^3/uL (1.8-7.7); Neutrophils % 87.9 %; Nucleated Red Blood Cells # 0.1 /100WBC; Nucleated Red Blood Cells % 0.8 %; Platelet Count 130 10^3/cmm (157-399); Red Blood Count 2.58 10^6/uL (3.85-5.65); Red Cell Distribution Width 17.8 % (12.1-15.1); White Blood Count 16.93 10^3/uL (3.29-11.43)
[2023-11-09 04:32] LABS: Anion Gap 8.4 (5-19); Blood Urea Nitrogen 21 mg/dL (8-23); Calcium 8.7 mg/dL (8.5-10.5); Carbon Dioxide 35 mmol/L (22-29); Chloride 96 mmol/L (98-107); Creatinine Clr Calc Pharmacy 94.5068; Glucose 101 mg/dL (65-115); Osmolality Calculated 285 mOsm/kg (285-295); Potassium 3.4 mmol/L (3.5-5.1); Sodium 136 mmol/L (136-145)
[2023-11-09 05:37] LABS: ABG PH Result 7.45 (7.35-7.45); Arterial Blood Gas Hematocrit 23.5 % (42-52); Base Excess ABG 10.7 mmol/L (-2.0-2.0); Blood Gas Allen Test Pos; Blood Gas Sample Site Radial, right; Blood Gas Sample Type Arterial; HCO3 ABG 35.8 mmol/L (22-26); Oxygen Device BIPAP; PO2 ABG 77.9 mmHg (80.0-100.0); PO2 FiO2 Ratio Arterial Blood 0
[2023-11-09] MEDS: vancomycin 1,250 MG/250 ML PIGGYBACK 166.599999999999994 MG IV (06:40)
[2023-11-09] MEDS: budesonide 0.5 mg/2 mL Neb INHALATION ×2 (07:41→19:57)
[2023-11-09] MEDS: potassium chloride ER 20 mEq Tablet PO (08:55)
[2023-11-09] MEDS: amiodarone 200 mg Tablet PO (08:55)
[2023-11-09] MEDS: CLONazepam 0.5 mg Tablet PO ×2 (08:55→14:47)
[2023-11-09] MEDS: levETIRAcetam 500 mg Tablet PO ×2 (08:55→17:32)
[2023-11-09] MEDS: FUROsemide 20 mg Tablet 40 MG PO (08:55)
[2023-11-09] MEDS: benzonatate 100 mg Capsule 200 MG PO ×3 (08:55→20:51)
--- NOTE | 2023-11-09 12:43 | P.PN_ITS ---
Subjective 2 Subjective: Patient is getting BiPAP dependent Not able to eat without getting shortness of breath, social history Had a very david discussion and long discussion with the patient in front of his daughter We discussed current clinical scenario, labs, x-ray, pneumonia, end-stage COPD, poor prognosis Patient is maximal assist He has not shown any sign improvement since Monday Patient had decided to change his CODE STATUS to DNR/DNI, they are also willing to consider hospice care at the intermediate All questions were answered, they were given ample amount of time to ask questions Will do IV Lasix along morphine Vitals/I&O/Wt Last Vital Signs Temp 97.3 F L 11/09/23 07:13 Pulse 93 11/09/23 11:40 Resp 28 H 11/09/23 11:30 BP 117/75 11/09/23 11:25 Pulse Ox 98 11/09/23 11:35 O2 Del Method BiPAP 11/09/23 11:30 O2 Flow Rate 5 11/09/23 03:29 FiO2 35 11/09/23 11:35 11/08/23 11/09/23 11/09/23 22:59 06:59 14:59 Intake Total 620 / 1690 540 / 540 Output Total 600 / 1600 250 / 1850 700 / 700 Balance 20 / 90 -250 / -160 -160 / -160 Weight last 48 hrs Weight 94.517 kg Weight 97.069 kg Physical Exam 2 Narrative: Work of breathing has increased Conversational dyspnea Currently on BiPAP Awake and alert Nonfocal neuroexam Abdomen nondistended Using abdominal muscles to breathe Does remedy edema He was on nasal cannula went into the room alkalosis and dyspnea I put him on BiPAP at that room interviewed Daughter was present in the room Urinary Catheter Management: Hurd: Cath Placed During This Visit: yes Reason for Continuing Indwelling Catheter: Accurate Measurement of Urinary Output in Critically Ill Patients Urinary Catheter Date of Insertion: 11/05/23 Urinary Catheter Time of Insertion: 16:27 Data 11/09/23 03:45 11/09/23 03:45 Micro: Microbiology 11/06/23 21:50 Gram Stain - Final Sputum - Expectorated Sputum Sputum Culture - Preliminary Yeast species A&P Assessment and plan (1) DNR (do not resuscitate): (2) CHF (congestive heart failure): (3) Pulmonary hypertension: (4) Persistent atrial fibrillation: (5) Acute anemia: (6) Blue toe syndrome of left lower extremity: (7) COPD (chronic obstructive pulmonary disease): Qualifiers: COPD type: chronic bronchitis Chronic bronchitis type: unspecified Qualified Code(s): J42 - Unspecified chronic bronchitis (8) Acute on chronic respiratory failure with hypoxia and hypercapnia: (9) Healthcare-associated pneumonia: (10) Hemoptysis: (11) DA (obstructive sleep apnea): Plan Patient getting BiPAP dependent Advanced COPD End-stage COPD Patient using abdominal muscles to breathe I had to put him on BiPAP our conversation dyspnea and today Will give him morphine and IV Lasix Hospital-acquired/healthcare associate pneumonia Continue antibiotics Inability to eat because of dyspnea End-stage COPD Recommended palliative/hospice care Hemoptysis: Resolved Hemoglobin stable, A-fib without RVR Continue AV hollis blocking agents Patient was switched to therapeutic Lovenox Transfer to [facility] In case of further worsening patient and family both decided to pursue hospice care For now I will change his CODE STATUS to DNR/DNI Patient is agreeable for intermediate placement with hospice Case management updated Will give another dose of potassium along IV Lasix Attestations 2 Medical Necessity Statement*: Transferred to [facility] Diagnoses DNR (do not resuscitate) Z66 CHF (congestive heart failure) I50.9 Pulmonary hypertension I27.20 Persistent atrial fibrillation I48.19 Acute anemia D64.9 Blue toe syndrome of left lower extremity I75.022 Chronic bronchitis, unspecified chronic bronchitis type J42 COPD type: chronic bronchitis Chronic bronchitis type: unspecified Acute on chronic respiratory failure with hypoxia and hypercapnia J96.21; J96.22 Healthcare-associated pneumonia J18.9 Hemoptysis R04.2 DA (obstructive sleep apnea) G47.33
[2023-11-09] MEDS: FUROsemide 10 mg/mL SDV 2mL 20 MG IVP (13:35)
[2023-11-09] MEDS: morphine 4 mg/mL SDV 1 mL 2 MG IVP ×2 (14:46→23:49)
[2023-11-09 16:55] LABS: Vancomycin Trough 15.1 ug/mL (10-15)
[2023-11-09] MEDS: potassium chloride ER 20 mEq Tablet 40 MEQ PO (17:31)
--- NOTE | 2023-11-09 18:03 | PC.NURSE ---
1700 pm report given to med surg Ambreen
[2023-11-09] MEDS: vancomycin 1,250 MG/250 ML PIGGYBACK 167 MG IV (18:11)
--- NOTE | 2023-11-09 19:32 | PC.NURSE ---
pt transferred to [facility] via bed. RT notified on the transfer plan since this afternoon. applied 6 L/min O2 via [place].
[2023-11-09] MEDS: ALPRAZolam 0.5 mg Tablet 0.25 MG PO (23:49)
[2023-11-10] VITALS (21 sets, daily range): BP systolic 92–121; BP diastolic 64–73; PULSE 68–98; RESP 14–30; TEMP 36.3–36.8; O2SAT 74–98
[2023-11-10] MEDS: ipratropium-albuterol 3 mL Neb INHALATION ×5 (00:27→20:45)
[2023-11-10] MEDS: piperacillin-tazobactam 3.375 GM in sodium chloride 0.9% (plus) 50 ML IV ×3 (00:32→22:08)
[2023-11-10] MEDS: sucralfate 1 gm/10 mL Oral Liq UDC PO ×4 (04:10→22:08)
[2023-11-10] MEDS: vancomycin 1,250 MG/250 ML PIGGYBACK 166.669999999999987 MG IV (05:03)
[2023-11-10 05:45] LABS: Basophils % 0.1 %; Eosinophils # 0.1 10^3/uL (0.0-0.8); Eosinophils % 0.6 %; Hematocrit 22.9 % (37-53); Lymphocytes # 0.7 10^3/uL (0.8-4.8); Lymphocytes % 4.8 %; Mean Corpuscular HGB Conc 29.7 g/dL (30-55); Mean Corpuscular Hemoglobin 30.6 pg (27-33); Mean Corpuscular Volume 103.2 fl (82-101); Mean Platelet Volume 10.4 fL (7.4-10.4); Monocytes # 0.8 10^3/uL (0.2-0.9); Monocytes % 5.8 %; Neutrophils # 11.87 10^3/uL (1.8-7.7); Neutrophils % 87.8 %; Nucleated Red Blood Cells # 0.1 /100WBC; Nucleated Red Blood Cells % 0.4 %; Platelet Count 117 10^3/cmm (157-399); Red Blood Count 2.22 10^6/uL (3.85-5.65); Red Cell Distribution Width 18.2 % (12.1-15.1); White Blood Count 13.52 10^3/uL (3.29-11.43)
[2023-11-10 06:13] LABS: Anion Gap 12.9 (5-19); Blood Urea Nitrogen 21 mg/dL (8-23); Calcium 8.4 mg/dL (8.5-10.5); Carbon Dioxide 31 mmol/L (22-29); Chloride 96 mmol/L (98-107); Creatinine Clr Calc Pharmacy 93.8526; Glucose 101 mg/dL (65-115); Osmolality Calculated 285 mOsm/kg (285-295); Potassium 3.9 mmol/L (3.5-5.1); Sodium 136 mmol/L (136-145)
[2023-11-10] MEDS: budesonide 0.5 mg/2 mL Neb INHALATION ×2 (07:20→20:45)
[2023-11-10] MEDS: FUROsemide 20 mg Tablet 40 MG PO (08:44)
[2023-11-10] MEDS: potassium chloride ER 20 mEq Tablet PO (08:44)
[2023-11-10] MEDS: levETIRAcetam 500 mg Tablet PO ×2 (08:44→22:07)
[2023-11-10] MEDS: benzonatate 100 mg Capsule 200 MG PO ×3 (08:44→22:07)
[2023-11-10] MEDS: amiodarone 200 mg Tablet PO (08:44)
[2023-11-10] MEDS: ALPRAZolam 0.5 mg Tablet 0.25 MG PO ×2 (08:52→22:29)
--- NOTE | 2023-11-10 11:48 | P.PN_ITS ---
Subjective 2 Subjective: Patient this morning is able to lay a bit flat Hemoglobin 6.8 No hemodynamic instability I will give him 1 unit PRBC along IV Lasix Daughter stating that there were event with all information, they have not decided about the final decision of hospice at her alf yet family is gathering today to make a final decision Vitals/I&O/Wt Last Vital Signs Temp 98.3 F 11/10/23 11:41 Pulse 80 11/10/23 11:41 Resp 15 11/10/23 11:41 BP 100/66 11/10/23 11:41 Pulse Ox 93 11/10/23 11:41 O2 Del Method BiPAP 11/10/23 11:41 O2 Flow Rate 6 11/09/23 20:00 FiO2 35 11/10/23 07:20 11/09/23 11/10/23 11/10/23 22:59 06:59 14:59 Intake Total 540 / 1130 540 / 1670 120 / 120 Output Total 200 / 900 300 / 1200 Balance 340 / 230 240 / 470 120 / 120 Weight last 48 hrs Weight 95.663 kg Weight 94.517 kg Physical Exam 2 Narrative: Awake and alert Pleasant cooperative morning supine Crackles and rhonchi evident Currently on 5 L nasal cannula Signs of fluid overload present Patient ate 20% of the breakfast Daughter at the bedside No abdominal discomfort Pleasant and cooperative Nonfocal neuroexam Generalized weakness and muscle fatigue with extremity weakness Urinary Catheter Management: Hurd: Cath Placed During This Visit: yes Reason for Continuing Indwelling Catheter: Accurate Measurement of Urinary Output in Critically Ill Patients Urinary Catheter Date of Insertion: 11/05/23 Urinary Catheter Time of Insertion: 16:27 Data 11/10/23 04:39 11/10/23 04:39 Micro: Microbiology 11/05/23 11:27 Blood Culture - Final Blood NO GROWTH AFTER 5 DAYS 11/05/23 11:25 Blood Culture - Final Blood NO GROWTH AFTER 5 DAYS A&P Assessment and plan (1) DNR (do not resuscitate): (2) CHF (congestive heart failure): (3) Pulmonary hypertension: (4) Blue toe syndrome of left lower extremity: (5) Acute anemia: (6) COPD (chronic obstructive pulmonary disease): Qualifiers: COPD type: chronic bronchitis Chronic bronchitis type: unspecified Qualified Code(s): J42 - Unspecified chronic bronchitis (7) Acute on chronic respiratory failure with hypoxia and hypercapnia: (8) Healthcare-associated pneumonia: (9) Hemoptysis: (10) DA (obstructive sleep apnea): Plan Hospital-acquired pneumonia Continue antibiotics Currently on 5 L, required BiPAP until 6 AM Able to lay flat Able to eat 20% of the breakfast Some improvement as he is not dependent on BiPAP as yesterday Acute on chronic anemia Rule out hemolytic anemia Will request LDH and bilirubin Will give another unit PRBC which will be his third unit FOBT negative Blood pressure slightly on the softer side A-fib We are holding off on anticoagulating agent secondary to hemoptysis and low hemoglobin Continue AV hollis blocking agent DNR/DNI Final seen regarding hospice and nursing will be made in next few hours once the family is at the bedside For symptomatic management he is getting morphine Guarded prognosis Using BiPAP every night Attestations 2 Medical Necessity Statement*: Continue medical management Diagnoses DNR (do not resuscitate) Z66 CHF (congestive heart failure) I50.9 Pulmonary hypertension I27.20 Blue toe syndrome of left lower extremity I75.022 Acute anemia D64.9 Chronic bronchitis, unspecified chronic bronchitis type J42 COPD type: chronic bronchitis Chronic bronchitis type: unspecified Acute on chronic respiratory failure with hypoxia and hypercapnia J96.21; J96.22 Healthcare-associated pneumonia J18.9 Hemoptysis R04.2 DA (obstructive sleep apnea) G47.33
[2023-11-10] MEDS: dexamethasone 10 mg/mL INJ IVP (12:50)
[2023-11-10 12:56] LABS: Partial Thromboplastin Time 29.1 SECONDS (23.9-36.7)
--- NOTE | 2023-11-10 13:09 | PC.SOCIAL ---
IMM updated Updated pt & family on IMM. No questions voiced. Provided pt a copy. Initialed, dated, & timed copy in chart.
[2023-11-10] MEDS: FUROsemide 10 mg/mL SDV 2mL 20 MG IVP (15:25)
[2023-11-10] MEDS: lactulose oral liq 20 gm/30 mL UDC PO (15:56)
[2023-11-10] MEDS: sodium chloride 0.9% 100 mL Bag 50 ML IV (15:56)
[2023-11-10] MEDS: vancomycin 1,250 MG/250 ML PIGGYBACK 250 MG IV (17:57)
[2023-11-10] MEDS: morphine 4 mg/mL SDV 1 mL 2 MG IVP (22:29)
[2023-11-11] VITALS (13 sets, daily range): BP systolic 98–121; BP diastolic 62–73; PULSE 70–88; RESP 18–20; TEMP 36.3–37; O2SAT 92–100
[2023-11-11] MEDS: sucralfate 1 gm/10 mL Oral Liq UDC PO ×4 (02:59→21:54)
[2023-11-11] MEDS: lactulose oral liq 20 gm/30 mL UDC PO ×2 (02:59→16:10)
[2023-11-11] MEDS: ipratropium-albuterol 3 mL Neb INHALATION ×5 (04:21→21:16)
[2023-11-11] MEDS: piperacillin-tazobactam 3.375 GM in sodium chloride 0.9% (plus) 50 ML IV ×3 (05:42→21:54)
[2023-11-11 05:55] LABS: Basophils % 0.1 %; Hematocrit 24.6 % (37-53); Lymphocytes # 0.2 10^3/uL (0.8-4.8); Lymphocytes % 1.6 %; Mean Corpuscular HGB Conc 32.5 g/dL (30-55); Mean Corpuscular Hemoglobin 31.3 pg (27-33); Mean Corpuscular Volume 96.1 fl (82-101); Mean Platelet Volume 10.4 fL (7.4-10.4); Monocytes # 0.3 10^3/uL (0.2-0.9); Monocytes % 2.7 %; Neutrophils # 9.99 10^3/uL (1.8-7.7); Neutrophils % 94.5 %; Nucleated Red Blood Cells % 0.4 %; Platelet Count 122 10^3/cmm (157-399); Red Blood Count 2.56 10^6/uL (3.85-5.65); Red Cell Distribution Width 18.9 % (12.1-15.1); White Blood Count 10.58 10^3/uL (3.29-11.43)
[2023-11-11 06:17] LABS: Anion Gap 8.9 (5-19); Blood Urea Nitrogen 22 mg/dL (8-23); Calcium 8.3 mg/dL (8.5-10.5); Carbon Dioxide 37 mmol/L (22-29); Chloride 95 mmol/L (98-107); Creatinine Clr Calc Pharmacy 93.4645; Glucose 148 mg/dL (65-115); Lactate Dehydrogenase 218 U/L (135-225); Osmolality Calculated 290 mOsm/kg (285-295); Potassium 3.9 mmol/L (3.5-5.1); Sodium 137 mmol/L (136-145)
[2023-11-11 06:45] LABS: Vancomycin Trough 14.4 ug/mL (10-15)
[2023-11-11] MEDS: ALPRAZolam 0.5 mg Tablet 0.25 MG PO ×3 (07:51→21:59)
[2023-11-11] MEDS: budesonide 0.5 mg/2 mL Neb INHALATION ×2 (08:15→21:15)
[2023-11-11] MEDS: vancomycin 1,250 MG/250 ML PIGGYBACK 250 MG IV ×2 (08:43→16:58)
[2023-11-11] MEDS: levETIRAcetam 500 mg Tablet PO ×2 (08:52→16:59)
[2023-11-11] MEDS: potassium chloride ER 20 mEq Tablet PO (08:53)
[2023-11-11] MEDS: amiodarone 200 mg Tablet PO (08:53)
[2023-11-11] MEDS: FUROsemide 20 mg Tablet 40 MG PO (08:53)
[2023-11-11] MEDS: benzonatate 100 mg Capsule 200 MG PO ×3 (08:53→21:54)
--- NOTE | 2023-11-11 12:41 | P.PN_ITS ---
Subjective 2 Subjective: Hemoglobin is 8 today Patient is not BiPAP dependent today Able to eat Feeling some good progress He will discuss further with his daughter regarding hospice care at the halfway, My plan is to keep him here until Monday Vitals/I&O/Wt Last Vital Signs Temp 97.6 F 11/11/23 11:26 Pulse 77 11/11/23 11:26 Resp 18 11/11/23 11:26 BP 105/68 11/11/23 11:26 Pulse Ox 97 11/11/23 11:26 O2 Del Method Nasal Cannula 11/11/23 08:16 O2 Flow Rate 5 11/11/23 08:16 FiO2 35 11/11/23 00:00 11/10/23 11/11/23 11/11/23 22:59 06:59 14:59 Intake Total 1320 / 1610 50 / 1660 540 / 540 Output Total 1550 / 1550 550 / 2100 Balance -230 / 60 -500 / -440 540 / 540 Weight last 48 hrs Weight 94.829 kg Weight 95.663 kg Physical Exam 2 Narrative: Awake and alert Signs of fluid load present but improving Currently on 5 L baseline requirement Pleasant cooperative Abdominal breathing has improved Work of breathing has improved as well Nonfocal neuroexam S1, S2 Urinary Catheter Management: Hurd: Cath Placed During This Visit: yes Reason for Continuing Indwelling Catheter: Other Urinary Catheter Date of Insertion: 11/05/23 Urinary Catheter Time of Insertion: 16:27 Data 11/11/23 04:39 11/11/23 04:39 Micro: Microbiology 11/06/23 21:50 Gram Stain - Final Sputum - Expectorated Sputum Sputum Culture - Preliminary Yeast species 11/05/23 11:27 Blood Culture - Final Blood NO GROWTH AFTER 5 DAYS 11/05/23 11:25 Blood Culture - Final Blood NO GROWTH AFTER 5 DAYS A&P Assessment and plan (1) DNR (do not resuscitate): (2) CHF (congestive heart failure): (3) Pulmonary hypertension: (4) Acute on chronic respiratory failure with hypoxia and hypercapnia: (5) Healthcare-associated pneumonia: (6) Hemoptysis: (7) Cough: (8) DA (obstructive sleep apnea): (9) Acute anemia: (10) Blue toe syndrome of left lower extremity: (11) COPD (chronic obstructive pulmonary disease): Qualifiers: COPD type: chronic bronchitis Chronic bronchitis type: unspecified Qualified Code(s): J42 - Unspecified chronic bronchitis Plan Persistent hypoxia Patient is at baseline home requirement of 5 L Recurrent anemia FOBT negative No signs of hemolytic anemia Hemoglobin stable as of today Hemoptysis: Scant Lovenox therapeutic regimen discontinue A-fib without RVR Continue amiodarone only Anticoagulating agent discontinue BiPAP dependency is improving Patient stating that he might consider hospice later but not at this point IV Lasix made a difference DNR/DNI Currently on cardiac diet No significant aspiration I will keep patient on IV Lasix Attestations 2 Medical Necessity Statement*: Continue medical management Diagnoses DNR (do not resuscitate) Z66 CHF (congestive heart failure) I50.9 Pulmonary hypertension I27.20 Acute on chronic respiratory failure with hypoxia and hypercapnia J96.21; J96.22 Healthcare-associated pneumonia J18.9 Hemoptysis R04.2 Cough R05.9 DA (obstructive sleep apnea) G47.33 Acute anemia D64.9 Blue toe syndrome of left lower extremity I75.022 Chronic bronchitis, unspecified chronic bronchitis type J42 COPD type: chronic bronchitis Chronic bronchitis type: unspecified
[2023-11-11] MEDS: FUROsemide 10 mg/mL SDV 2mL 20 MG IVP (16:11)
[2023-11-12] VITALS (23 sets, daily range): BP systolic 98–151; BP diastolic 60–98; PULSE 61–86; RESP 16–24; TEMP 36.2–37; O2SAT 91–100
[2023-11-12] MEDS: morphine 4 mg/mL SDV 1 mL 2 MG IVP (00:19)
[2023-11-12] MEDS: ipratropium-albuterol 3 mL Neb INHALATION ×6 (00:50→23:00)
[2023-11-12] MEDS: lactulose oral liq 20 gm/30 mL UDC PO ×2 (03:29→15:07)
[2023-11-12] MEDS: sucralfate 1 gm/10 mL Oral Liq UDC PO ×4 (03:29→21:19)
[2023-11-12] MEDS: vancomycin 1,250 MG/250 ML PIGGYBACK 250 MG IV ×2 (05:34→17:32)
[2023-11-12] MEDS: piperacillin-tazobactam 3.375 GM in sodium chloride 0.9% (plus) 50 ML IV ×2 (06:28→15:07)
--- NOTE | 2023-11-12 06:58 | P.PN_ITS ---
Subjective 2 Subjective: Patient laying flat On BiPAP Vitals/I&O/Wt Last Vital Signs Temp 97.2 F L 11/12/23 04:00 Pulse 61 11/12/23 05:55 Resp 20 H 11/12/23 04:00 BP 98/60 11/12/23 04:00 Pulse Ox 97 11/12/23 04:00 O2 Del Method BiPAP 11/12/23 04:00 O2 Flow Rate 4.5 11/11/23 20:00 FiO2 35 11/12/23 04:00 11/11/23 11/11/23 11/12/23 14:59 22:59 06:59 Intake Total 780 / 780 780 / 1560 50 / 1610 Output Total 1300 / 1300 300 / 1600 Balance 780 / 780 -520 / 260 -250 / 10 Weight last 48 hrs Weight 96.275 kg Weight 94.829 kg Physical Exam 2 Narrative: Sign of fluid load improving Pressure ulcer on nose Currently on BiPAP Nonfocal neuroexam GCS 15 Blue toe syndrome, cold extremities Urinary Catheter Management: Hurd: Cath Placed During This Visit: yes Reason for Continuing Indwelling Catheter: Other Urinary Catheter Date of Insertion: 11/05/23 Urinary Catheter Time of Insertion: 16:27 Data 11/11/23 04:39 11/11/23 04:39 Micro: Microbiology 11/06/23 21:50 Gram Stain - Final Sputum - Expectorated Sputum Sputum Culture - Preliminary Yeast species A&P Assessment and plan (1) DNR (do not resuscitate): (2) Acute on chronic respiratory failure with hypoxia and hypercapnia: (3) Acute anemia: (4) Blue toe syndrome of left lower extremity: (5) COPD (chronic obstructive pulmonary disease): Qualifiers: COPD type: chronic bronchitis Chronic bronchitis type: unspecified Qualified Code(s): J42 - Unspecified chronic bronchitis Plan Plan to discharge him by Monday Patient most likely will go to retirement without hospice he would opt for palliative care for now He will keep hospice personnel involved in case you decide to use them in future For now he is intake has improved He is not BiPAP dependent anymore Will give him a break from Lasix today Will BiPAP in the morning He is tolerating his protein shakes as well Significant improvement clinically He is able to lay flat I have discontinued his therapeutic anticoagulation secondary to persistent hemoptysis His hemoglobin keeps fluctuating DNR/DNI Attestations 2 Medical Necessity Statement*: Discharge on Monday Coding Level of Care Code Acute Code for Chg Fwd Diagnoses DNR (do not resuscitate) Z66 Acute on chronic respiratory failure with hypoxia and hypercapnia J96.21; J96.22 Acute anemia D64.9 Blue toe syndrome of left lower extremity I75.022 Chronic bronchitis, unspecified chronic bronchitis type J42 COPD type: chronic bronchitis Chronic bronchitis type: unspecified
[2023-11-12 07:29] LABS: Basophils % 0.1 %; Eosinophils # 0.1 10^3/uL (0.0-0.8); Eosinophils % 0.4 %; Hematocrit 24.5 % (37-53); Lymphocytes # 0.7 10^3/uL (0.8-4.8); Lymphocytes % 5.6 %; Mean Platelet Volume 10.5 fL (7.4-10.4); Monocytes # 0.7 10^3/uL (0.2-0.9); Monocytes % 6.1 %; Neutrophils # 10.16 10^3/uL (1.8-7.7); Neutrophils % 86.9 %; Nucleated Red Blood Cells # 0.1 /100WBC; Nucleated Red Blood Cells % 0.5 %; Platelet Count 136 10^3/cmm (157-399); Red Blood Count 2.45 10^6/uL (3.85-5.65); Red Cell Distribution Width 18.7 % (12.1-15.1)
[2023-11-12 07:52] LABS: Anion Gap 8.6 (5-19); Blood Urea Nitrogen 20 mg/dL (8-23); Calcium 8.4 mg/dL (8.5-10.5); Carbon Dioxide 37 mmol/L (22-29); Chloride 97 mmol/L (98-107); Glucose 92 mg/dL (65-115); Osmolality Calculated 290 mOsm/kg (285-295); Potassium 3.6 mmol/L (3.5-5.1); Sodium 139 mmol/L (136-145)
[2023-11-12 07:57] LABS: Creatinine Clr Calc Pharmacy 94.1373
--- NOTE | 2023-11-12 10:11 | CTR_ITS ---
PROCEDURE INFORMATION: Exam: CTA Chest With Contrast Exam date and time: 11/12/2023 1:29 PM Age: 73 years old Clinical indication: Other: Hemoptysis TECHNIQUE: Imaging protocol: Computed tomographic angiography of the chest with contrast. Exam focused on the arteries. 3D rendering (Not supervised by radiologist): MIP and/or 3D reconstructed images were created by the technologist. Radiation optimization: All CT scans at this facility use at least one of these dose optimization techniques: automated exposure control; mA and/or kV adjustment per patient size (includes targeted exams where dose is matched to clinical indication); or iterative reconstruction. Contrast material: OMNI 350; Contrast volume: 80 ml; Contrast route: INTRAVENOUS (IV); COMPARISON: CT angio chest PE protcl [id number] 05/11/2023 11:06 RADIATION DOSE METRICS: Total DLP (mGy-cm): 494.93 FINDINGS: Pulmonary arteries: Prominent pulmonary arteries suggesting pulmonary arterial hypertension. No evidence of PE. Aorta: Unremarkable. No aortic aneurysm. There is essentially no contrast in the thoracic aorta and therefore dissection cannot be evaluated Lungs: Again noted is a dense consolidation in the left mid lung, which has slightly worsened when compared to the most recent CT angiogram of the chest from November 05, 2023. The bilateral lower lobe pulmonary infiltrates seen at the time of the previous exam have also worsened. The findings suggest worsening multifocal pneumonia. New small focus of infiltrate in the right upper lobe. Pleural spaces: Unremarkable. No pneumothorax. No pleural effusion. Heart: Mild cardiomegaly. Coronary arteries: Extensive calcified coronary artery disease. Lymph nodes: Small mediastinal lymph nodes, likely reactive Bones/joints: Multiple stable thoracic compression fracture deformities Soft tissues: Unremarkable. CT/CT angio chest PE protcl [id number] IMPRESSION: 1. The significant bilateral multifocal pneumonia has worsened when compared to prior imaging 2. No evidence of PE 3. Extensive calcified coronary artery disease 4. Small mediastinal lymph nodes, likely reactive
[2023-11-12] MEDS: ALPRAZolam 0.5 mg Tablet 0.25 MG PO ×2 (10:17→21:24)
[2023-11-12] MEDS: potassium chloride ER 20 mEq Tablet PO (10:18)
[2023-11-12] MEDS: levETIRAcetam 500 mg Tablet PO ×2 (10:18→17:13)
[2023-11-12] MEDS: benzonatate 100 mg Capsule 200 MG PO ×3 (10:18→21:19)
[2023-11-12] MEDS: amiodarone 200 mg Tablet PO (10:18)
[2023-11-12] MEDS: meropenem 1,000 MG in sodium chloride 0.9% (plus) 50 ML 100 MG IV (17:46)
[2023-11-12] MEDS: budesonide 0.5 mg/2 mL Neb INHALATION (19:51)
[2023-11-12 21:46] LABS: Hematocrit 29.1 % (37-53)
[2023-11-12] MEDS: FUROsemide 10 mg/mL SDV 4mL 40 MG IVP (22:51)
[2023-11-13] VITALS (15 sets, daily range): BP systolic 103–123; BP diastolic 65–79; PULSE 66–86; RESP 16–23; TEMP 36.4–36.9; O2SAT 94–98
[2023-11-13] MEDS: meropenem 1,000 MG in sodium chloride 0.9% (plus) 50 ML 100 MG IV ×3 (01:44→17:52)
[2023-11-13] MEDS: sucralfate 1 gm/10 mL Oral Liq UDC PO ×4 (03:56→20:27)
[2023-11-13] MEDS: lactulose oral liq 20 gm/30 mL UDC PO ×2 (03:56→17:52)
[2023-11-13] MEDS: vancomycin 1,250 MG/250 ML PIGGYBACK 250 MG IV ×2 (04:00→17:53)
[2023-11-13] MEDS: ipratropium-albuterol 3 mL Neb INHALATION ×6 (04:11→23:53)
[2023-11-13] MEDS: ALPRAZolam 0.5 mg Tablet 0.25 MG PO ×2 (05:04→20:27)
[2023-11-13 05:40] LABS: Basophils % 0.1 %; Eosinophils # 0.2 10^3/uL (0.0-0.8); Eosinophils % 2.4 %; Hematocrit 30.7 % (37-53); Lymphocytes # 0.7 10^3/uL (0.8-4.8); Mean Corpuscular HGB Conc 30.9 g/dL (30-55); Mean Corpuscular Volume 96.8 fl (82-101); Monocytes # 0.7 10^3/uL (0.2-0.9); Monocytes % 6.7 %; Neutrophils # 8.21 10^3/uL (1.8-7.7); Neutrophils % 81.7 %; Nucleated Red Blood Cells # 0.1 /100WBC; Nucleated Red Blood Cells % 0.7 %; Platelet Count 141 10^3/cmm (157-399); Red Blood Count 3.17 10^6/uL (3.85-5.65); White Blood Count 10.04 10^3/uL (3.29-11.43)
[2023-11-13 05:57] LABS: Anion Gap 8.4 (5-19); Blood Urea Nitrogen 18 mg/dL (8-23); Calcium 8.2 mg/dL (8.5-10.5); Carbon Dioxide 38 mmol/L (22-29); Chloride 97 mmol/L (98-107); Creatinine Clr Calc Pharmacy 95.2191; Glucose 104 mg/dL (65-115); Osmolality Calculated 292 mOsm/kg (285-295); Potassium 3.4 mmol/L (3.5-5.1); Sodium 140 mmol/L (136-145)
[2023-11-13] MEDS: budesonide 0.5 mg/2 mL Neb INHALATION ×2 (08:37→20:42)
[2023-11-13] MEDS: benzonatate 100 mg Capsule 200 MG PO ×3 (09:17→20:27)
[2023-11-13] MEDS: potassium chloride ER 20 mEq Tablet PO (09:17)
[2023-11-13] MEDS: levETIRAcetam 500 mg Tablet PO ×2 (09:17→17:52)
[2023-11-13] MEDS: amiodarone 200 mg Tablet PO (09:17)
[2023-11-13] MEDS: morphine 4 mg/mL SDV 1 mL 2 MG IVP ×2 (09:19→18:01)
--- NOTE | 2023-11-13 10:07 | PC.SOCIAL ---
IMM Update pg 2 of IMM updated and reviewed w/ patient. Copy provided and copy dated, initilaed and placed in chart.
--- NOTE | 2023-11-13 12:02 | P.PN_ITS ---
Subjective 2 Subjective: CT chest showing worsening infiltrate Currently patient is on 5 L nasal cannula Spoke with the patient regarding bronchial wash, he is agreeable for intubation for the procedure Spoke with Dr. De La Torre who is planning for bronchoscopy tomorrow morning Start steroids for possible cryptogenic/organizing pneumonia Patient still experiencing mild hemoptysis Low blood pressure noted, no need of Lasix/diuretics today Vitals/I&O/Wt Last Vital Signs Temp 97.5 F L 11/13/23 07:25 Pulse 86 11/13/23 08:00 Resp 22 H 11/13/23 08:00 BP 107/65 11/13/23 07:25 Pulse Ox 97 11/13/23 08:00 O2 Del Method Nasal Cannula 11/13/23 08:00 O2 Flow Rate 4 11/13/23 08:00 FiO2 35 11/13/23 04:14 11/12/23 11/13/23 11/13/23 22:59 06:59 14:59 Intake Total 1070 / 2210 540 / 2750 640 / 640 Output Total 250 / 700 2450 / 3150 200 / 200 Balance 820 / 1510 -1910 / -400 440 / 440 Weight last 48 hrs Weight 98.6 kg Weight 96.887 kg Weight 96.275 kg Physical Exam 2 Narrative: Clinically patient does not look fluid overloaded Still has crackles on lung auscultation Currently on 5 L Nonfocal neuroexam GCS 15 Not using abdominal muscles Daughter is at the bedside Pleasant and cooperative Right foot cold mildly palpable pulse as compared to left Left foot is warmer than right No sign of vascular ischemia of right foot Urinary Catheter Management: Hurd: Cath Placed During This Visit: yes Reason for Continuing Indwelling Catheter: Other Urinary Catheter Date of Insertion: 11/05/23 Urinary Catheter Time of Insertion: 16:27 Data 11/13/23 05:14 11/13/23 05:14 Micro: Microbiology 11/06/23 21:50 Gram Stain - Final Sputum - Expectorated Sputum Sputum Culture - Final [place] albicans A&P Assessment and plan (1) DNR (do not resuscitate): (2) CHF (congestive heart failure): (3) Pulmonary hypertension: (4) Persistent atrial fibrillation: (5) H/O endovascular stent graft for abdominal aortic aneurysm: (6) Ascending aortic aneurysm: Qualifiers: Presence of rupture: without rupture Qualified Code(s): I71.21 - Aneurysm of the ascending aorta, without rupture (7) Blue toe syndrome of left lower extremity: (8) Acute anemia: (9) COPD (chronic obstructive pulmonary disease): Qualifiers: COPD type: chronic bronchitis Chronic bronchitis type: unspecified Qualified Code(s): J42 - Unspecified chronic bronchitis (10) Pneumonia: Qualifiers: Laterality: left Lung location: lower lobe of lung Pneumonia type: due to unspecified organism Qualified Code(s): J18.9 - Pneumonia, unspecified organism (11) Acute on chronic respiratory failure with hypoxia and hypercapnia: (12) Healthcare-associated pneumonia: (13) Hemoptysis: Plan Persistent hypoxia Currently on 5 L home requirement Uses BiPAP overnight Giving him a day off diuretics Patient was getting BiPAP dependent last week however with diuretics and morphine we were able to wean him off BiPAP dependency, he is only using BiPAP at nighttime he is not using his abdominal muscles his work of breathing has improved significantly Patient will need bronchoscopy for bronchial wall watch for evaluation of hemoptysis CT chest again showing worsening infiltrate Start high-dose steroids along nystatin for possible organizing pneumonia Spoke with secondary market manager Dr. De La Torre Hemoptysis: Persistent, status post fourth unit PRBC A-fib without RVR Continue AV hollis blocking agent amiodarone/off anticoagulating agent secondary to hemoptysis Patient is well aware that he is still considered high risk for stroke off anticoagulating agent Healthcare associated pneumonia continue broad-spectrum antibiotics Vancomycin and meropenem almost got 8 days of antibiotics Cultures negative Patient will stay n.p.o. after midnight Holding diuretics for low blood pressure today With high-dose steroids added nystatin and medium dose sliding scale for steroid-induced hyperglycemia patient would like to go to [facility] he is not interested in hospice care at this point Attestations 2 Medical Necessity Statement*: continue medical management Diagnoses DNR (do not resuscitate) Z66 CHF (congestive heart failure) I50.9 Pulmonary hypertension I27.20 Persistent atrial fibrillation I48.19 H/O endovascular stent graft for abdominal aortic aneurysm Z95.828 Aneurysm of ascending aorta without rupture I71.21 Presence of rupture: without rupture Blue toe syndrome of left lower extremity I75.022 Acute anemia D64.9 Chronic bronchitis, unspecified chronic bronchitis type J42 COPD type: chronic bronchitis Chronic bronchitis type: unspecified Pneumonia J18.9 Laterality: left Lung location: lower lobe of lung Pneumonia type: due to unspecified organism Acute on chronic respiratory failure with hypoxia and hypercapnia J96.21; J96.22 Healthcare-associated pneumonia J18.9 Hemoptysis R04.2
[2023-11-13] MEDS: nystatin 100,000 unit/mL UDC 5 mL 500000 UNIT PO ×3 (13:55→20:27)
[2023-11-13] MEDS: methylPREDNISolone sod succ 125 mg/2 mL INJ 60 MG IVP (13:55)
--- NOTE | 2023-11-13 19:35 | P.CONIM_ITS ---
Providers/Reason For Consult 2 Consulting Physician/Specialty*: Alex Moreau MD/pulmonary critical care Reason for Consult*: Persistent consolidation on CT chest Requesting Physician: Elliot Lorenzo MD Attending Physician: Elliot Lorenzo MD Primary Care Provider: Jackie Kulkarni MD History of Present Illness History of Present Illness Kimo Hernandez is a 73 year old male with past medical history of atrial fibrillation, end-stage COPD,, severe peripheral arterial disease, history of seizure disorder, hypertension, DA admitted on 11/05/2023 for fatigue, malaise, productive cough and worsening shortness of breath and scant hemoptysis. 10/20/2023: Clinic visit; followed by hospital admission 10/20/2023 to 10/30/2023 Patient is an known patient in my pulmonary clinic-where he follows up with me for advance COPD-he is on triple nebulization, low-dose prednisone, he was last seen on 10/20/2023-on the day of his clinic visit he was found to be in A-fib RVR and so I transferred him to ER. Subsequently got admitted from 10/20/2023-his A- fib was controlled after adding metoprolol. During hospitalization he went into another A-fib RVR episode and CTA 10/24/2023 showed developing bilateral subsegmental PE with evidence of right heart strain despite being on Eliquis therapy, failure of Eliquis therapy, switch to therapeutic Lovenox. He was also diuresed over 9 L negative discharged on Lasix 40 daily with potassium replacement. Per COPD-patient was discharged with scheduled nebulizations, BiPAP therapy to long term facility. He also developed acute on chronic limb ischemia with history of severe peripheral vascular disease, history of bypass, history of angioplasty, with blue toe syndrome-cardiology recommended medical management with aspirin, statin, therapeutic Lovenox, blue toe syndrome improved. 11/05/2023: This hospitalization Patient came back from long term home with chief complaint of fatigue, malaise, productive cough and worsening shortness of breath and scant hemoptysis. His admission CTA showed extensive left-sided pneumonia along with minimal pneumonia in the right lower lobe. He was treated as healthcare associated pneumonia and started on vancomycin and Zosyn.For He is requiring 5 L nasal cannula. Sputum culture grew Belem albicans. Blood cultures negative so far. Given his advanced COPD and severe deconditioning-patient decided to go DNR/DNI. On 11/12/2023: Patient had hemoptysis and was requiring blood transfusions-repeat CTA showed significant bilateral multifocal pneumonia worsening when compared to CTA 11/04/2022. There is no evidence of PE. He has extensive calcified coronary artery disease. There is no evidence of PE. All his anticoagulation were held given his hemoptysis and retransfer requirement. Pulmonary consult requested for hemoptysis as well as worsening infiltrates on CTA I have seen patient at bedside-is on 5 L supplemental oxygen Appears significantly deconditioned since that time I have seen and clinic on 10/28/2023 Reported having difficulty shortness of breath. Review of Systems 2 General: Reports: 10 or more systems reviewed and unremarkable except in HPI and below Medications/Allergies Home Medications Medication Instructions Recorded Confirmed Last Taken Type albuterol sulfate 90 mcg/actuation 1 inh inhalation QID PRN Shortness 10/09/20 11/05/23 02/20/23 History aerosol inhaler (ProAir HFA) Of Breath cholecalciferol (vitamin D3) 25 25 mcg PO DAILY ##0 10/26/20 11/05/23 11/04/23 History mcg (1,000 unit) capsule (Vitamin D3) levetiracetam 500 mg tablet 500 mg PO BID 02/21/23 11/05/23 11/04/23 History rosuvastatin 40 mg tablet 40 mg PO QPM 02/21/23 11/05/23 11/04/23 History prednisolone 5 mg tablet 5 mg PO DAILY #30 tabs 06/30/23 11/05/23 11/04/23 Rx budesonide 0.5 mg/2 mL suspension 0.5 mg (2 mL) inhalation BID #120 08/02/23 11/05/23 11/04/23 Rx for nebulization mL tiotropium bromide 1.25 2 puff inhalation DAILY #4 grams 08/02/23 11/05/23 11/04/23 Rx mcg/actuation mist for inhalation (Spiriva Respimat) alprazolam 0.5 mg tablet (Xanax) 0.25 mg (1/2 x 0.5 mg) PO TID PRN 10/30/23 11/05/23 Unknown Rx anxiety #11 tabs amoxicillin 875 mg-potassium 1 tab PO BID 7 days #14 tabs 04/22/24 04/28/24 04/27/24 Rx clavulanate 125 mg tablet aspirin 81 mg tablet,delayed 81 mg PO DAILY 30 days #30 tabs 10/30/23 11/05/23 11/04/23 Rx release benzonatate 100 mg capsule 200 mg (2 x 100 mg) PO Q8H PRN 10/30/23 11/05/23 Unknown Rx cough 7 days #42 caps enoxaparin 80 mg/0.8 mL 80 mg (0.8 mL) SUBCUT Q12H 30 days 10/30/23 11/05/23 11/04/23 Rx subcutaneous syringe #48 mL furosemide 20 mg tablet (Lasix) 40 mg (2 x 20 mg) PO DAILY 30 days 10/30/23 11/05/23 11/04/23 Rx #60 tabs metoprolol tartrate 25 mg tablet 25 mg PO BID@0900,2100 30 days #60 10/30/23 11/05/23 11/04/23 Rx tabs pantoprazole 40 mg tablet,delayed 40 mg PO BID 30 days #60 tabs 10/30/23 11/05/23 11/04/23 Rx release (Protonix) potassium chloride 20 mEq 20 meq PO DAILY 30 days #30 tabs 10/30/23 11/05/23 11/04/23 Rx tablet,extended release albuterol sulfate 2.5 mg/3 mL 2.5 mg (3 mL) inhalation Q4H PRN 10/31/23 11/05/23 11/04/23 Rx (0.083 %) solution for nebulization shortness of breath or wheezing #360 mL guaifenesin 400 mg tablet 400 mg PO QID PRN cough #120 tabs 10/31/23 11/05/23 Unknown Rx amiodarone 200 mg tablet (Pacerone) 200 mg PO DAILY 11/05/23 11/05/23 11/04/23 History Allergies Allergy/AdvReac Type Severity Reaction Status Date / Time No Known Allergies Allergy Verified 11/05/23 10:30 Current Medications Generic Name Dose Route Start Last Admin Trade Name Freq PRN Reason Stop Dose Admin Albuterol/Ipratropium 3 ml 11/05/23 16:00 11/13/23 17:11 Ipratropium-Albuterol 3 Ml Neb INHALATION 3 ml Q4H.RESPIRATORY JANE Administration Alprazolam 0.25 mg 11/09/23 21:15 11/13/23 05:04 Alprazolam 0.5 Mg Tablet PO 0.25 mg TID PRN Administration anxiety Amiodarone HCl 200 mg 11/07/23 09:55 11/13/23 09:17 Amiodarone 200 Mg Tablet PO 200 mg DAILY JANE Administration Benzonatate 200 mg 11/05/23 15:00 11/13/23 13:55 Benzonatate 100 Mg Capsule PO 200 mg TID JANE Administration Budesonide 0.5 mg 11/05/23 20:00 11/13/23 08:37 Budesonide 0.5 Mg/2 Ml Neb INHALATION 0.5 mg BID.RESPIRATORY JANE Administration Furosemide 20 mg 11/10/23 16:00 11/11/23 16:11 Furosemide 10 Mg/Ml Sdv 2ml IVP 20 mg Q24H JANE Administration Vancomycin/PEG/NADA/Lysine/Water 1,250 mg in 250 mls @ 166.667 mls/hr 11/08/23 05:00 11/13/23 19:29 Vancocin IV Infused 0500,1700 JANE Infusion Meropenem 1,000 mg/ Sodium 50 mls @ 100 mls/hr 11/12/23 17:15 11/13/23 19:29 Chloride IV Infused Q8H JANE Infusion Protocol Insulin Human Lispro 0 unit 11/13/23 18:00 11/13/23 18:08 Insulin Lispro 100 Unit/1 Ml SUBCUT Not Given [facility] Protocol Lactulose 20 gm 11/10/23 15:00 11/13/23 17:52 Lactulose Oral Liq 20 Gm/30 Ml Udc PO 20 gm Q12H JANE Administration Levetiracetam 500 mg 11/07/23 18:00 11/13/23 17:52 Levetiracetam 500 Mg Tablet PO 500 mg BID JANE Administration Methylprednisolone Sodium Succinate 60 mg 11/13/23 12:05 11/13/23 13:55 Methylprednisolone Sod Succ 125 Mg/2 Ml Inj IVP 60 mg Q12H JANE Administration Morphine Sulfate 2 mg 11/09/23 18:25 11/13/23 18:01 Morphine 4 Mg/Ml Sdv 1 Ml IVP 2 mg Q4H PRN Administration SEVERE PAIN Nystatin 500,000 unit 11/13/23 13:00 11/13/23 17:52 Nystatin 100,000 Unit/Ml Udc 5 Ml PO 500,000 unit QID JANE Administration Potassium Chloride 20 meq 11/07/23 09:55 11/13/23 09:17 Potassium Chloride Er 20 Meq Tablet PO 20 meq DAILY JANE Administration Sucralfate 1 gm 11/05/23 15:00 11/13/23 13:55 Sucralfate 1 Gm/10 Ml Oral Liq Udc PO 1 gm Q6H JANE Administration PFSH Acute 2 PFSH: Medical History Peripheral arterial disease Benign essential HTN Iliac artery aneurysm, bilateral DA (obstructive sleep apnea) Hx of seizure disorder Depression Dyspnea on exertion Popliteal artery aneurysm Spinal stenosis Tinnitus Sleep apnea in adult A-fib COPD (chronic obstructive pulmonary disease) Surgical History History of PTCA S/P hernia repair incisional History of vascular surgery rt and left leg 2019 History of colonoscopy with polypectomy 2018 History of AAA (abdominal aortic aneurysm) repair 2010 History of left inguinal hernia repair 2016 Family History Mother Cancer Diabetes Father CAD (coronary artery disease) Cancer Chronic kidney disease (CKD) Diabetes Brother No problems noted. Sister No problems noted. Grandfather Lung disease Denies family history of Clotting disorder Dementia Suicide Anesthesia complication Bleeding disorder Stroke Social History Smoking and tobacco/nicotine status: former use of tobacco/nicotine Quit status (tobacco/nicotine): has quit using Year quit tobacco: May 2021 Former quit date comment: 2ppd X 50 Alcohol intake: never Substance/Drug Use: never Vitals/I&O/Wt Last Vital Signs Temp 97.9 F 11/13/23 17:30 Pulse 66 11/13/23 17:30 Resp 18 11/13/23 17:30 BP 123/66 11/13/23 17:30 Pulse Ox 94 11/13/23 17:30 O2 Del Method Room Air 11/13/23 17:30 O2 Flow Rate 4 11/13/23 17:00 FiO2 35 11/13/23 04:14 11/13/23 11/13/23 11/13/23 06:59 14:59 22:59 Intake Total 540 / 2750 1120 / 1120 780 / 1900 Output Total 2450 / 3150 500 / 500 300 / 800 Balance -1910 / -400 620 / 620 480 / 1100 Weight last 48 hrs Weight 217 lb 6 oz Weight 213 lb 9.6 oz Weight 212 lb 4 oz Physical Exam 2 Narrative: General: alert, NAD on 5 L supplemental oxygen HEENT: conj clear, EOMI, PERRL, mmm, Neck: supple, no meningismus Heme: no cervical LAP Respiratory: Inspection: No visible deformity of the chest wall Palpation: Trachea is mildly deviated to the right, bilateral symmetric expansion Percussion: Bilateral tympanic percussion note both anterior and posteriorly Auscultation: Bilateral diffuse crackles Cardiovascular: rrr, nl s1s2, no mrg Abdomen: soft, nt, nd, no r/g, bs+ Extremities: pulses +, 1+ pitting pedal edema, no c/c : no CVA tenderness Skin: intact, no rash MSK: no back or neck pain Neurologic: grossly intact Urinary Catheter Management: Hurd: Cath Placed During This Visit: yes Reason for Continuing Indwelling Catheter: Acute Urinary Retention or Obstruction Urinary Catheter Date of Insertion: 11/05/23 Urinary Catheter Time of Insertion: 16:27 Data 11/14/23 05:33 11/14/23 05:33 Other Labs: Radiology Impressions Chest X-Ray 11/07/23 09:51 IMPRESSION: Resolution of upper lung opacities with more focal consolidation in the left lower lung as above. Chest CTA 11/12/23 10:11 IMPRESSION: 1. The significant bilateral multifocal pneumonia has worsened when compared to prior imaging 2. No evidence of PE 3. Extensive calcified coronary artery disease 4. Small mediastinal lymph nodes, likely reactive Laboratory Results WBC 7.02 10^3/uL (3.29-11.43) 11/14/23 05:33 RBC 2.99 10^6/uL (3.85-5.65) L 11/14/23 05:33 Hgb 9.00 g/dL (11.27-16.99) L 11/14/23 05:33 Hct 29.0 % (37-53) L 11/14/23 05:33 MCV 97.0 fl (82-101) 11/14/23 05:33 MCH 30.1 pg (27-33) 11/14/23 05:33 MCHC 31.0 g/dL (30-55) 11/14/23 05:33 RDW 18.3 % (12.1-15.1) H 11/14/23 05:33 Plt Count 121 10^3/cmm (157-399) L 11/14/23 05:33 MPV 10.2 fL (7.4-10.4) 11/14/23 05:33 Neut % (Auto) 93.4 % 11/14/23 05:33 Lymph % (Auto) 3.0 % 11/14/23 05:33 [place] % (Auto) 1.7 % 11/14/23 05:33 Eos % (Auto) 0.0 % 11/14/23 05:33 Baso % (Auto) 0.0 % 11/14/23 05:33 Neut # (Auto) 6.56 10^3/uL (1.8-7.7) 11/14/23 05:33 Lymph # (Auto) 0.2 10^3/uL (0.8-4.8) L 11/14/23 05:33 [place] # (Auto) 0.1 10^3/uL (0.2-0.9) L 11/14/23 05:33 Eos # (Auto) 0.0 10^3/uL (0.0-0.8) 11/14/23 05:33 Baso # (Auto) 0.0 10^3/uL (0.0-0.1) 11/14/23 05:33 Nucleated RBC % (auto) 0.3 % 11/14/23 05:33 Nucleated RBCs # 0.0 /100WBC 11/14/23 05:33 Haptoglobin 209.0 mg/L (30-200) H 11/10/23 12:22 PT 14.60 SECONDS (12.1-14.9) 11/05/23 10:36 INR 1.11 (0.8-1.2) 11/05/23 10:36 APTT 29.1 SECONDS (23.9-36.7) 11/10/23 12:22 Specimen Type Arterial 11/09/23 05:30 Sample Site Radial, right 11/09/23 05:30 ABG pH 7.45 (7.35-7.45) 11/09/23 05:30 ABG pCO2 51.0 mmHg (35-45) H 11/09/23 05:30 ABG pO2 77.9 mmHg (80.0-100.0) L 11/09/23 05:30 ABG PO2/FiO2 Ratio 0 11/09/23 05:30 ABG HCO3 35.8 mmol/L (22-26) H 11/09/23 05:30 ABG O2 Saturation 98.8 11/05/23 12:38 ABG Base Excess 10.7 mmol/L (-2.0-2.0) H 11/09/23 05:30 Geremias Test Pos 11/09/23 05:30 A-a O2 Gradient 16.5 mmHg (5-10) H 11/05/23 12:38 Hematocrit 23.5 % (42-52) L 11/09/23 05:30 Hgb O2 Saturation 96.2 % (95-100) 11/05/23 12:38 Carboxyhemoglobin 2.3 %THgb (0.4-20.1) 11/05/23 12:38 Methemoglobin 0.3 % (0.4-1.5) L 11/05/23 12:38 Total Hemoglobin 7.3 g/dL (14-18) L 11/05/23 12:38 Sodium 136.0 mmol/L (131-143) 11/05/23 12:38 Potassium 3.8 mmol/L (3.5-5.0) 11/05/23 12:38 Glucose 92.0 mg/dL (70-115) 11/05/23 12:38 Ionized Calcium 1.1 mmol/L (1.1-1.4) 11/05/23 12:38 O2 Delivery Device Bipap 11/09/23 05:30 O2 Liters/Min 5.0 % 11/05/23 12:38 FiO2 35.0 % 11/09/23 05:30 Easement Man ID Alewe 11/09/23 05:30 Sodium 137 mmol/L (136-145) 11/14/23 05:33 Potassium 4.1 mmol/L (3.5-5.1) 11/14/23 05:33 Chloride 95 mmol/L (98-107) L 11/14/23 05:33 Carbon Dioxide 36 mmol/L (22-29) H 11/14/23 05:33 Anion Gap 10.1 (5-19) 11/14/23 05:33 BUN 18 mg/dL (8-23) 11/14/23 05:33 Creatinine 0.3 mg/dL (0.7-1.2) L 11/14/23 05:33 GFR Calculation Not Reportable 11/14/23 05:33 Glucose 167 mg/dL (65-115) H 11/14/23 05:33 POC Glucose 155 mg/dL (70-110) H 11/14/23 10:39 Calculated Osmolality 290 mOsm/kg (285-295) 11/14/23 05:33 Lactic Acid 1.5 mmol/L (0.5-2.2) 11/05/23 15:53 Calcium 8.8 mg/dL (8.5-10.5) 11/14/23 05:33 Iron 59 ug/dL (59-158) 11/05/23 15:53 Ferritin 340 ng/mL (30-400) 11/05/23 15:53 Total Bilirubin 1.0 mg/dL (0.15-1.2) 11/10/23 12:22 Direct Bilirubin 0.40 mg/dL (0.00-0.30) H 11/10/23 12:22 Indirect Bilirubin 0.60 11/10/23 12:22 AST 34 U/L (0-40) 11/05/23 10:36 ALT 67 U/L (0-41) H 11/05/23 10:36 Alkaline Phosphatase 44 U/L (40-130) 11/05/23 10:36 Lactate Dehydrogenase 218 U/L (135-225) 11/11/23 04:39 Troponin T Baseline 26 ng/L (0-15) H 11/05/23 15:53 Troponin T 120 Minute 27.08 ng/L (0-15) H 11/05/23 18:02 Delta Troponin T 1.08 ABS# (0-10) 11/05/23 18:02 Troponin T Hi Sens 6Hr 23.65 ng/L (0-15) H 11/05/23 21:56 Troponin T Hi Sens 6Hr Delta -2.35 ng/L (0-12) L 11/05/23 21:56 NT-Pro-B Natriuret Pep 703 pg/mL (0-125) H 11/06/23 02:06 Total Protein 5.4 g/dL (6.6-8.7) L 11/05/23 10:36 Albumin 3.1 g/dL (3.5-5.2) L 11/05/23 10:36 Globulin 2.3 g/dL (1.3-4.6) 11/05/23 10:36 Procalcitonin 0.15 ng/mL (0-0.5) 11/05/23 15:53 Vancomycin Trough 14.0 ug/mL (10-15) 11/13/23 16:15 Blood Type A Negative 11/10/23 12:22 Rho(D) Type Rh negative 11/10/23 12:22 Antibody Screen Negative 11/10/23 12:22 EFREM, Poly Interpret Negative 11/10/23 12:22 Crossmatch See Detail 11/10/23 12:22 Micro: Microbiology 11/06/23 21:50 Gram Stain - Final Sputum - Expectorated Sputum Sputum Culture - Final Belem albicans A&P Assessment and plan (1) COPD (chronic obstructive pulmonary disease): Qualifiers: COPD type: chronic bronchitis Chronic bronchitis type: unspecified Qualified Code(s): J42 - Unspecified chronic bronchitis (2) Hemoptysis: (3) Healthcare-associated pneumonia: (4) Pneumonia: Qualifiers: Laterality: left Lung location: lower lobe of lung Pneumonia type: due to unspecified organism Qualified Code(s): J18.9 - Pneumonia, unspecified organism (5) Chronic respiratory failure: Plan # Persistent bilateral multifocal pneumonia worsened on CT 11/12/[address] 11/05/2023 # Hemoptysis and patient on therapeutic anticoagulation for PE as well as A-fib RVR -Currently patient is covered with vancomycin and meropenem -Sputum cultures positive for Belem albicans -Currently is on 5 L supplemental oxygen-which is his baseline -I am going to do bronchoscopic inspection of airways and will obtain BAL # Advance COPD -Continue scheduled nebulizations with DuoNeb and Pulmicort -Outpatient he will continue his triple nebulizations # Bilateral subsegmental PE with right heart strain seen on CTA 10/24/2023 -Patient developed subsegmental PE despite being on Eliquis -Stable started on therapeutic Lovenox and discharged to long term facility -He comes back get admitted for multifocal pneumonia -Patient developed hemoptysis and requiring blood transfusions-currently anticoagulation on hold -CTA 11/12/2023 did not show any PE -Patient is aware of risk versus benefits of holding anticoagulation versus bleeding Consult Attestations 2 Medical Necessity Statement: Deferred to hospitalist Time Spent in Patient Care: Greater than 35 minutes (>than 50% of time spent in counselling and/or direct pt care on unit) . Coding Level of Care Code Acute Code for [facility] Fwd Diagnoses Chronic bronchitis, unspecified chronic bronchitis type J42 COPD type: chronic bronchitis Chronic bronchitis type: unspecified Hemoptysis R04.2 Healthcare-associated pneumonia J18.9 Pneumonia J18.9 Laterality: left Lung location: lower lobe of lung Pneumonia type: due to unspecified organism Chronic respiratory failure J96.10 Time Spent (min) 57
[2023-11-13 22:54] LABS: Glucose Point of Care 197 mg/dL (70-110)
[2023-11-14] VITALS (29 sets, daily range): BP systolic 99–133; BP diastolic 59–98; PULSE 65–103; RESP 14–20; TEMP 36.1–36.4; O2SAT 92–99
[2023-11-14] MEDS: methylPREDNISolone sod succ 125 mg/2 mL INJ 60 MG IVP ×2 (00:26→23:55)
[2023-11-14] MEDS: meropenem 1,000 MG in sodium chloride 0.9% (plus) 50 ML 100 MG IV (00:26)
[2023-11-14] MEDS: sucralfate 1 gm/10 mL Oral Liq UDC PO ×2 (03:59→20:10)
[2023-11-14] MEDS: lactulose oral liq 20 gm/30 mL UDC PO ×2 (03:59→17:50)
[2023-11-14] MEDS: vancomycin 1,250 MG/250 ML PIGGYBACK 250 MG IV ×2 (04:00→17:50)
[2023-11-14] MEDS: ALPRAZolam 0.5 mg Tablet 0.25 MG PO ×2 (04:01→21:57)
[2023-11-14] MEDS: ipratropium-albuterol 3 mL Neb INHALATION ×5 (04:02→23:36)
[2023-11-14 06:16] LABS: Lymphocytes # 0.2 10^3/uL (0.8-4.8); Mean Corpuscular Hemoglobin 30.1 pg (27-33); Mean Platelet Volume 10.2 fL (7.4-10.4); Monocytes # 0.1 10^3/uL (0.2-0.9); Monocytes % 1.7 %; Neutrophils # 6.56 10^3/uL (1.8-7.7); Neutrophils % 93.4 %; Nucleated Red Blood Cells % 0.3 %; Platelet Count 121 10^3/cmm (157-399); Red Blood Count 2.99 10^6/uL (3.85-5.65); Red Cell Distribution Width 18.3 % (12.1-15.1); White Blood Count 7.02 10^3/uL (3.29-11.43)
[2023-11-14 06:32] LABS: Anion Gap 10.1 (5-19); Blood Urea Nitrogen 18 mg/dL (8-23); Calcium 8.8 mg/dL (8.5-10.5); Carbon Dioxide 36 mmol/L (22-29); Chloride 95 mmol/L (98-107); Creatinine Clr Calc Pharmacy 93.1216; Glucose 167 mg/dL (65-115); Osmolality Calculated 290 mOsm/kg (285-295); Potassium 4.1 mmol/L (3.5-5.1); Sodium 137 mmol/L (136-145)
[2023-11-14 06:36] LABS: Glucose Point of Care 177 mg/dL (70-110)
[2023-11-14] MEDS: budesonide 0.5 mg/2 mL Neb INHALATION ×2 (07:36→19:36)
[2023-11-14] MEDS: levETIRAcetam 500 mg Tablet PO ×2 (09:07→17:50)
[2023-11-14] MEDS: amiodarone 200 mg Tablet PO (09:07)
[2023-11-14] MEDS: meropenem 1,000 MG in sodium chloride 0.9% (plus) 50 ML 50 MG IV ×2 (09:07→17:49)
[2023-11-14] MEDS: morphine 4 mg/mL SDV 1 mL 2 MG IVP (09:07)
[2023-11-14 10:53] LABS: Glucose Point of Care 155 mg/dL (70-110)
[2023-11-14] MEDS: sodium chloride 0.9% 1,000 ML 30 ML IV (11:15)
--- NOTE | 2023-11-14 11:18 | ANES.PREANE2 ---
Pre-Anesthetic Assessment Height/Weight: Height 1.75 m Weight 94.092 kg Temp Pulse Resp BP Pulse Ox O2 Del Method O2 Flow Rate 97.2 F L 76 18 118/71 96 Nasal Cannula 5 11/14/23 12:40 11/14/23 12:55 11/14/23 12:55 11/14/23 12:55 11/14/23 12:55 11/14/23 12:55 11/14/23 12:55 FiO2 35 11/14/23 04:07 Operation Date: 11/14/23 11:25 Proposed Procedures p Bronchoalveolar Lavage(Not Applicable) - Alex Frances DatarMD Familial anesthetic complications: none Was Beta Dinora taken within 24 hours: N/A Was Clonidine taken within 24 hours: N/A Last intake: Intake Last Liquid Date 11/13/23 Last Liquid Time 23:30 Last Solid Date 11/13/23 Last Solid Time 18:00 Social No alcohol previous smoker (1-2ppd x50 yr), quit in 2020 Exam alert and oriented x 3 Airway Mallampati: Class II Dentition: full History/ROS No significant history except as noted Pulmonary Chronic Obstructive Pulmonary Disease, Sleep Apnea and Shortness of Breath pneumonia, on bipap at night, 5 l NC during the day; pulmonary htn CV/HEM Atrial Fibrillation and Congestive Heart Failure None reported Hepatic None reported GI None reported Metabolic None reported Musc/skel None reported Neuropsych Seizure (hx of seizures, has not had one in years) Anesthetic Plan ASA status: 3 Anesthesia: Anesthesia Evaluation and General Risk of > 500 ml blood loss (7ml/kg in children): No Medications/Allergies Home Medications Medication Instructions Recorded Confirmed Last Taken Type albuterol sulfate 90 mcg/actuation 1 inh inhalation QID PRN Shortness 10/09/20 11/05/23 02/20/23 History aerosol inhaler (ProAir HFA) Of Breath cholecalciferol (vitamin D3) 25 25 mcg PO DAILY ##0 10/26/20 11/05/23 11/04/23 History mcg (1,000 unit) capsule (Vitamin D3) levetiracetam 500 mg tablet 500 mg PO BID 02/21/23 11/05/23 11/04/23 History rosuvastatin 40 mg tablet 40 mg PO QPM 02/21/23 11/05/23 11/04/23 History prednisolone 5 mg tablet 5 mg PO DAILY #30 tabs 06/30/23 11/05/23 11/04/23 Rx budesonide 0.5 mg/2 mL suspension 0.5 mg (2 mL) inhalation BID #120 08/02/23 11/05/23 11/04/23 Rx for nebulization mL tiotropium bromide 1.25 2 puff inhalation DAILY #4 grams 08/02/23 11/05/23 11/04/23 Rx mcg/actuation mist for inhalation (Spiriva Respimat) alprazolam 0.5 mg tablet (Xanax) 0.25 mg (1/2 x 0.5 mg) PO TID PRN 10/30/23 11/05/23 Unknown Rx anxiety #11 tabs amoxicillin 875 mg-potassium 1 tab PO BID 7 days #14 tabs 10/30/23 11/05/23 11/04/23 Rx clavulanate 125 mg tablet aspirin 81 mg tablet,delayed 81 mg PO DAILY 30 days #30 tabs 10/30/23 11/05/23 11/04/23 Rx release benzonatate 100 mg capsule 200 mg (2 x 100 mg) PO Q8H PRN 10/30/23 11/05/23 Unknown Rx cough 7 days #42 caps enoxaparin 80 mg/0.8 mL 80 mg (0.8 mL) SUBCUT Q12H 30 days 10/30/23 11/05/23 11/04/23 Rx subcutaneous syringe #48 mL furosemide 20 mg tablet (Lasix) 40 mg (2 x 20 mg) PO DAILY 30 days 10/30/23 11/05/23 11/04/23 Rx #60 tabs metoprolol tartrate 25 mg tablet 25 mg PO BID@0900,2100 30 days #60 10/30/23 11/05/23 11/04/23 Rx tabs pantoprazole 40 mg tablet,delayed 40 mg PO BID 30 days #60 tabs 10/30/23 11/05/23 11/04/23 Rx release (Protonix) potassium chloride 20 mEq 20 meq PO DAILY 30 days #30 tabs 10/30/23 11/05/23 11/04/23 Rx tablet,extended release albuterol sulfate 2.5 mg/3 mL 2.5 mg (3 mL) inhalation Q4H PRN 10/31/23 11/05/23 11/04/23 Rx (0.083 %) solution for nebulization shortness of breath or wheezing #360 mL guaifenesin 400 mg tablet 400 mg PO QID PRN cough #120 tabs 10/31/23 11/05/23 Unknown Rx amiodarone 200 mg tablet (Pacerone) 200 mg PO DAILY 11/05/23 11/05/23 11/04/23 History Allergies Allergy/AdvReac Type Severity Reaction Status Date / Time No Known Allergies Allergy Verified 11/05/23 10:30 Current Medications Generic Name Dose Route Start Last Admin Trade Name Freq PRN Reason Stop Dose Admin Albuterol/Ipratropium 3 ml 11/05/23 16:00 11/14/23 07:36 Ipratropium-Albuterol 3 Ml Neb INHALATION 3 ml Q4H.RESPIRATORY JANE Administration Alprazolam 0.25 mg 11/09/23 21:15 11/14/23 04:01 Alprazolam 0.5 Mg Tablet PO 0.25 mg TID PRN Administration anxiety Amiodarone HCl 200 mg 11/07/23 09:55 11/14/23 09:07 Amiodarone 200 Mg Tablet PO 200 mg DAILY JANE Administration Benzonatate 200 mg 11/05/23 15:00 11/14/23 10:28 Benzonatate 100 Mg Capsule PO Not Given TID JANE Budesonide 0.5 mg 11/05/23 20:00 11/14/23 07:36 Budesonide 0.5 Mg/2 Ml Neb INHALATION 0.5 mg BID.RESPIRATORY JANE Administration Furosemide 20 mg 11/10/23 16:00 11/11/23 16:11 Furosemide 10 Mg/Ml Sdv 2ml IVP 20 mg Q24H JANE Administration Vancomycin/PEG/NADA/Lysine/Water 1,250 mg in 250 mls @ 166.667 mls/hr 11/08/23 05:00 11/14/23 05:02 Vancocin IV Infused 0500,1700 JANE Infusion Meropenem 1,000 mg/ Sodium 50 mls @ 100 mls/hr 11/12/23 17:15 11/14/23 09:07 Chloride IV 50 mls/hr Q8H JANE Administration Protocol Sodium Chloride 1,000 mls @ 30 mls/hr 11/14/23 11:15 11/14/23 12:31 Sodium Chloride 0.9% IV 11/15/23 11:14 Infused .Q24H JANE Infusion Insulin Human Lispro 0 unit 11/13/23 18:00 11/14/23 10:28 Insulin Lispro 100 Unit/1 Ml SUBCUT Not Given TIDWM JANE Protocol Lactulose 20 gm 11/10/23 15:00 11/14/23 03:59 Lactulose Oral Liq 20 Gm/30 Ml Udc PO 20 gm Q12H JANE Administration Levetiracetam 500 mg 11/07/23 18:00 11/14/23 09:07 Levetiracetam 500 Mg Tablet PO 500 mg BID JANE Administration Methylprednisolone Sodium Succinate 60 mg 11/13/23 12:05 11/14/23 00:26 Methylprednisolone Sod Succ 125 Mg/2 Ml Inj IVP 60 mg Q12H JANE Administration Morphine Sulfate 2 mg 11/09/23 18:25 11/14/23 09:07 Morphine 4 Mg/Ml Sdv 1 Ml IVP 2 mg Q4H PRN Administration SEVERE PAIN Nystatin 500,000 unit 11/13/23 13:00 11/14/23 10:28 Nystatin 100,000 Unit/Ml Udc 5 Ml PO Not Given QID JANE Potassium Chloride 20 meq 11/07/23 09:55 11/13/23 09:17 Potassium Chloride Er 20 Meq Tablet PO 20 meq DAILY JANE Administration Sucralfate 1 gm 11/05/23 15:00 11/14/23 10:28 Sucralfate 1 Gm/10 Ml Oral Liq Udc PO Not Given Q6H JANE PFSH Anesthesia Medical History Peripheral arterial disease Benign essential HTN Iliac artery aneurysm, bilateral DA (obstructive sleep apnea) Hx of seizure disorder Depression Dyspnea on exertion Popliteal artery aneurysm Spinal stenosis Tinnitus Sleep apnea in adult A-fib COPD (chronic obstructive pulmonary disease) Surgical History History of PTCA S/P hernia repair incisional History of vascular surgery rt and left leg 2019 History of colonoscopy with polypectomy 2018 History of AAA (abdominal aortic aneurysm) repair 2010 History of left inguinal hernia repair 2016 Family History Mother Cancer Diabetes Father CAD (coronary artery disease) Cancer Chronic kidney disease (CKD) Diabetes Brother No problems noted. Sister No problems noted. Grandfather Lung disease Denies family history of Clotting disorder Dementia Suicide Anesthesia complication Bleeding disorder Stroke Social History Smoking and tobacco/nicotine status: former use of tobacco/nicotine Quit status (tobacco/nicotine): has quit using Year quit tobacco: May 2021 Former quit date comment: 2ppd X 50 Alcohol intake: never Substance/Drug Use: never Data Anesthesia 11/14/23 05:33 11/14/23 05:33 Short CBC 11/12/23 11/13/23 11/14/23 Range/Units 21:39 05:14 05:33 WBC 10.04 7.02 (3.29-11.43) 10^3/uL Hgb 9.10 L 9.50 L 9.00 L (11.27-16.99) g/dL Hct 29.1 L 30.7 L 29.0 L (37-53) % MCV 96.8 97.0 (82-101) fl Plt Count 141 L 121 L (157-399) 10^3/cmm Neut % (Auto) 81.7 93.4 % Neut # (Auto) 8.21 H 6.56 (1.8-7.7) 10^3/uL BMP 11/13/23 11/14/23 05:14 05:33 Sodium 140 137 Potassium 3.4 L 4.1 Chloride 97 L 95 L Carbon Dioxide 38 H 36 H BUN 18 18 Creatinine 0.4 L 0.3 L Glucose 104 167 H Calcium 8.2 L 8.8 Blood Bank 11/10/23 12:22 Blood Type A Negative Rho(D) Type Rh negative Antibody Screen Negative Cardiac Studies: Echocardiogram 10/20/23 Sestamibi Stress Test (Cardiology) 09/29/22 Cardiac Event Monitor 02/15/23
--- NOTE | 2023-11-14 11:30 | P.PN_ITS ---
Subjective 2 Subjective: Possible bronchoscopy Patient agreeable for nursing placement Patient stating that with steroids he does feel feel different and better Vitals/I&O/Wt Last Vital Signs Temp 97.1 F L 11/14/23 11:04 Pulse 79 11/14/23 11:04 Resp 18 11/14/23 11:04 BP 133/86 11/14/23 11:04 Pulse Ox 95 11/14/23 11:04 O2 Del Method Nasal Cannula 11/14/23 11:04 O2 Flow Rate 4 11/14/23 11:04 FiO2 35 11/14/23 04:07 11/13/23 11/14/23 11/14/23 22:59 06:59 14:59 Intake Total 900 / 2020 300 / 2320 Output Total 300 / 800 750 / 1550 Balance 600 / 1220 -450 / 770 Weight last 48 hrs Weight 94.092 kg Weight 98.6 kg Weight 96.887 kg Physical Exam 2 Narrative: Pleasant and cooperative Extremely dry Concentrated urine Receptive Crackles mild improvement Awake and alert Nonfocal neuroexam Bilateral lower extremity no active worsening of complexion poor any sign of vascular ischemia or ulcers Pleasant cooperative laying flat Currently on 4 L nasal cannula Urinary Catheter Management: Hurd: Cath Placed During This Visit: yes Reason for Continuing Indwelling Catheter: Other Urinary Catheter Date of Insertion: 11/05/23 Urinary Catheter Time of Insertion: 16:27 Data 11/14/23 05:33 11/14/23 05:33 A&P Assessment and plan (1) DNR (do not resuscitate): (2) Pulmonary hypertension: (3) Persistent atrial fibrillation: (4) Solitary pulmonary nodule on lung CT: (5) Healthcare-associated pneumonia: (6) Acute on chronic respiratory failure with hypoxia and hypercapnia: (7) COPD (chronic obstructive pulmonary disease): Qualifiers: COPD type: chronic bronchitis Chronic bronchitis type: unspecified Qualified Code(s): J42 - Unspecified chronic bronchitis (8) Acute anemia: (9) Blue toe syndrome of left lower extremity: (10) DA (obstructive sleep apnea): Plan Persistent proximal End-stage COPD Poor functional status Patient underwent significantly with use of morphine, Lasix and addition of steroids Cultures negative Afebrile Hemodynamic stable Requires BiPAP overnight and 4 L of nasal cannula in the morning Worsening infiltrate with active hemoptysis Anticoagulating agent on hold After bronchoscopy today Congestive heart failure features: Improved holding Lasix Patient looks dry and dehydrated now Plan to hold off on diuretics on the day of discharge Diet will be resumed after he is done with his bronchoscopy today Concern for organizing pneumonia that is why steroids have been added Added insulin in case he gets steroid-induced hyperglycemia Healthcare associated pneumonia continue antibiotics DNR/DNI Disposition: [facility] placement Likely will be discharged in next 24 hours Attestations 2 Medical Necessity Statement*: Continue medical management Diagnoses DNR (do not resuscitate) Z66 Pulmonary hypertension I27.20 Persistent atrial fibrillation I48.19 Solitary pulmonary nodule on lung CT R91.1 Healthcare-associated pneumonia J18.9 Acute on chronic respiratory failure with hypoxia and hypercapnia J96.21; J96.22 Chronic bronchitis, unspecified chronic bronchitis type J42 COPD type: chronic bronchitis Chronic bronchitis type: unspecified Acute anemia D64.9 Blue toe syndrome of left lower extremity 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
[2023-11-14] MEDS: lidocaine 1% INJ 10 mL (per mL) XX (11:55)
--- NOTE | 2023-11-14 12:11 | PM.OP ---
Operative Report Date of procedure: November 14, 2023 Pre-op diagnosis: hemoptysis and worsening infiltrates on CT Chest Post-op diagnosis: hemoptysis Procedure done: Procedure : Dx Bronchoscope w/Washings or airway inspection Dx Bronchoscope w/BAL Bronchoscopy w/ therapeutic aspiration of the tracheobronchial tree (clearance of airway secretions, removal of mucus plugs) Surgeon: Alex Moreau MD Brief History: Kimo Hernandez is a 73 year old male with past medical history of atrial fibrillation, end-stage COPD,, severe peripheral arterial disease, history of seizure disorder, hypertension, DA admitted on 11/05/2023 for fatigue, malaise, productive cough and worsening shortness of breath and scant hemoptysis. Pt was admitted on 10/20/2023-for A-fib was controlled after adding metoprolol. During hospitalization he went into another A-fib RVR episode and CTA 10/24/2023 showed developing bilateral subsegmental PE with evidence of right heart strain despite being on Eliquis therapy, failure of Eliquis therapy, switch to therapeutic Lovenox. Patient came back from [facility] home with chief complaint of fatigue, malaise, productive cough and worsening shortness of breath and scant hemoptysis. His admission CTA showed extensive left-sided pneumonia along with minimal pneumonia in the right lower lobe. He was treated as healthcare associated pneumonia and started on vancomycin and Zosyn.For He is requiring 5 L nasal cannula. Sputum culture grew Belem albicans. Blood cultures negative so far. Given his advanced COPD and severe deconditioning-patient decided to go DNR/DNI. On 11/12/2023: Patient had hemoptysis and was requiring blood transfusions-repeat CTA showed significant bilateral multifocal pneumonia worsening when compared to CTA 11/04/2022. There is no evidence of PE. He has extensive calcified coronary artery disease. There is no evidence of PE. All his anticoagulation were held given his hemoptysis and retransfer requirement. Pulmonary consult requested for hemoptysis as well as worsening infiltrates on CTA suspicious for worsening pneumonia I have seen patient at bedside-is on 5 L supplemental oxygen Today scheduled for bronchoscopy for airway inspection and BAL. Procedure: Procedure : Dx Bronchoscope w/Washings or airway inspection Dx Bronchoscope w/BAL Bronchoscopy w/ therapeutic aspiration of the tracheobronchial tree (clearance of airway secretions, removal of mucus plugs) Pre-Operative Diagnosis: Worsening infiltrates on CT chest and patient with hemoptysis-suspicious for worsening pneumonia Post-Operative Diagnosis: Hemoptysis Indication: Worsening infiltrates on CT chest Consent: Consents were obtained from patient and placed in the chart Pre-procedure Evaluation: Patient was evaluated clinically and ancillary testing reviewed. The risk of having active MTB infection is very low in my clinical judgement. ASA: 4 Malampati score: unable to evaluate due to presence of endotracheal tube Time out: Performed by the procedure team and nursing staff. Vent support maintained on Fio2 100. Anesthesia: Managed as per anesthesia team Local anesthesia: The monika in the right and left mainstem bronchi were anesthetized with 1% lidocaine, 6 mL. Summary of Significant Findings: -Bronchoscope passed through ET tube used for initial inspection and airway clearance. The scope was advanced through the ET tube. The lower trachea mucosa appeared normal, no endotracheal lesion was seen, however did reveal significant bloody secretions noted which were suctioned right away.. The monika was sharp. The monika, the right and left mainstem bronchi are anesthetized with 1% lidocaine. In a systematic manner bilateral bronchial tree was then examined. The bronchoscope was advanced into the left mainstem bronchus. The mucosa appeared normal with no endobronchial lesions. The left upper lobe, lingula and left lower lobe bronchi were examined up to the third subsegmental level and no abnormalities were identified. Mucosa appeared normal with no endobronchial lesion, active bleeding or mucous plug. There were significant bloody secretions noted in left upper lobe, lower lobe-which were suctioned right away. The bronchoscope was then introduced into the right mainstem bronchus. The right upper lobe, right middle lobe and right lower lobe bronchi were examined up to the third subsegmental level and no abnormalities were identified. The mucosa appeared normal with no endobronchial lesions, active bleeding. There were significant bloody secretions noted in the right lower lobe which were suctioned right away. BAL obtained from medial basal segment of left lower lobe-the bronchoscope was then removed and the procedure terminated. I have instilled 5 cc cold saline region to left upper lobe, left lower lobe, right middle lobe, right lower lobe. Suctioned all the airways. Waited for 10 minutes but did not notice any active bleeding. Overall it appears the patient is having slow oozing and it was difficult to pinpoint where the bleeding is coming from. Specimens: Bronchoalveolar lavage (23851) from medial basal segment of left lower lobe-30 cc normal saline instilled and aspirated 15 cc of bloody aspirate. Sent for cultures, fluid analysis, Complications:None; patient tolerated the procedure well. Disposition: Patient was transferred to medical surgical floor again Patient is DNR/DNI-and is thinking about comfort care. I discussed with patient's daughter and girlfriend that given slow oozing in his lungs; we cannot put him back on anticoagulation. (He was diagnosed with subsegmental PE 10/24/2023 given while on Eliquis ; so Eliquis was discontinued and started on Lovenox.) He also has severe PAD and had multiple interventions in bilateral lower lobe extremities and has overall poor circulation. At this point patient is hemodynamically stable and is on baseline 5 L supplemental oxygen-recommended transfer to [facility] for interventional radiology-embolization of pulmonary vessels in case he has excessive bleeding. They have yet to make decision and discussed with hospitalist.
[2023-11-14 12:16] LABS: Cyto Order Verification No Order
[2023-11-14 12:17] LABS: Apprearance, Bronch Wash Bloody (CLEAR); Color, Bronc Wash Red
--- NOTE | 2023-11-14 12:55 | ANE.PACU2 ---
Inpatient post-anesthesia follow up: Airway intact: Yes Vital signs: Temperature 97.2 F Pulse Rate 76 Respiratory Rate 18 Blood Pressure 118/71 Pulse Oximetry 96 Oxygen Delivery Me thod Nasal Cannula Oxygen Flow Rate 5 Fraction of Inspir ed Oxygen 35 Hydration adequate: Yes Nausea and vomiting: No Pain level: 1 Mental status: Baseline
[2023-11-14 13:05] LABS: PATH Referral Yes; Total Cells Counted Bronch 200
[2023-11-14 16:59] LABS: Glucose Point of Care 160 mg/dL (70-110)
[2023-11-14] MEDS: nystatin 100,000 unit/mL UDC 5 mL 500000 UNIT PO ×2 (17:50→20:10)
[2023-11-14] MEDS: insulin lispro 100 unit/1 mL SUBCUT (17:55)
--- NOTE | 2023-11-14 18:56 | PM.TDS ---
Transfer Summary Providers Date of Admission: 11/05/23 12:21 Date of Discharge/Transfer: 11/14/23 Attending Provider at Admission: Timmy Stubbs MD Attending Provider at Transfer: Elliot Lorenzo MD Primary Care Provider: Jackie Kulkarni MD Transfer Plans: Anticipated date of transfer: 11/14/23. Diagnoses at Discharge Discharge Diagnosis (1) DNR (do not resuscitate): Status: Acute (2) Pulmonary hypertension: Status: Acute (3) Persistent atrial fibrillation: Status: Acute (4) Solitary pulmonary nodule on lung CT: Status: Acute (5) Healthcare-associated pneumonia: Status: Acute (6) Acute on chronic respiratory failure with hypoxia and hypercapnia: Status: Acute (7) COPD (chronic obstructive pulmonary disease): Status: Acute Qualifiers: COPD type: chronic bronchitis Chronic bronchitis type: unspecified Qualified Code(s): J42 - Unspecified chronic bronchitis (8) Acute anemia: Status: Acute (9) Blue toe syndrome of left lower extremity: Status: Acute (10) DA (obstructive sleep apnea): Status: Acute Reason for Visit Reason for Visit SOB Hospital Course Hospital Course 70-year-old male who was admitted on 11/04 for acute on chronic hypoxia he was started on broad-spectrum antibiotics for healthcare associated pneumonia empirical therapy, patient remained afebrile, no significant leukocytosis, cultures remain negative, patient has history of A-fib he was on Eliquis which was transitioned to therapeutic Lovenox, patient became BiPAP dependent his medications were switched to IV amiodarone along IV heparin which was transitioned back to therapeutic Lovenox and p.o. amiodarone. Goals of care were discussed in detail, patient decided to opt for DNR/DNI status. His hospitalization was complicated secondary to acute on chronic anemia, required 3 unit PRBC in total during hospitalization, his hemoglobin will drop in the span of 3 to 4 days, no GI source of bleeding was noted, CTA was repeated which showed worsening infiltrate, pulmonology was consulted for bronchoscopy, bronchoscopy was done on 11/17 which showed significant bleeding during the evaluation, bulk gas specialist has recommended IR guided coiling of bleeding pulmonary vessels, [facility] Dr. Garcia has accepted the patient, patient will go to [facility] because he requires BiPAP at nighttime and during the daytime he is on 4 to 5 L of oxygen which is his baseline requirement. After the procedure most likely he will go to [facility] Daughter is in agreement. Physical Exam Narrative: Pleasant and cooperative Extremely dry Concentrated urine Receptive Crackles mild improvement Awake and alert Nonfocal neuroexam Bilateral lower extremity no active worsening of complexion poor any sign of vascular ischemia or ulcers Pleasant cooperative laying flat Currently on 4 L nasal cannula Urinary Catheter Management: Hurd: Cath Placed During This Visit: yes Reason for Continuing Indwelling Catheter: Acute Urinary Retention or Obstruction Urinary Catheter Date of Insertion: 11/05/23 Urinary Catheter Time of Insertion: 16:27 TS Data Studies Completed and Pending Pending at discharge Category Date Time Status Basic Metabolic Panel AM LABS Lab 11/15/23 04:00 Ordered Bronch Washing Culture & GS Routine Lab 11/14/23 12:00 Results Complete Blood Count w/Auto AM LABS Lab 11/15/23 04:00 Ordered Completed Studies During Hospitalization Category Date Time Status CT angio chest PE protcl [id number] Routine Cat Scan 11/12/23 10:[address] angio chest PE protcl [id number] Stat Cat Scan 11/05/23 10:31 Completed XR chest 1V portable [id number] Routine Exams 11/07/23 09:51 Completed XR chest 1V portable [id number] Stat Exams 11/05/23 10:31 Completed Laboratory Last Values WBC 7.02 10^3/uL (3.29-11.43) 11/14/23 05:33 RBC 2.99 10^6/uL (3.85-5.65) L 11/14/23 05:33 Hgb 9.00 g/dL (11.27-16.99) L 11/14/23 05:33 Hct 29.0 % (37-53) L 11/14/23 05:33 MCV 97.0 fl (82-101) 11/14/23 05:33 MCH 30.1 pg (27-33) 11/14/23 05:33 MCHC 31.0 g/dL (30-55) 11/14/23 05:33 RDW 18.3 % (12.1-15.1) H 11/14/23 05:33 Plt Count 121 10^3/cmm (157-399) L 11/14/23 05:33 MPV 10.2 fL (7.4-10.4) 11/14/23 05:33 Neut % (Auto) 93.4 % 11/14/23 05:33 Lymph % (Auto) 3.0 % 11/14/23 05:33 Carbon % (Auto) 1.7 % 11/14/23 05:33 Eos % (Auto) 0.0 % 11/14/23 05:33 Baso % (Auto) 0.0 % 11/14/23 05:33 Neut # (Auto) 6.56 10^3/uL (1.8-7.7) 11/14/23 05:33 Lymph # (Auto) 0.2 10^3/uL (0.8-4.8) L 11/14/23 05:33 Carbon # (Auto) 0.1 10^3/uL (0.2-0.9) L 11/14/23 05:33 Eos # (Auto) 0.0 10^3/uL (0.0-0.8) 11/14/23 05:33 Baso # (Auto) 0.0 10^3/uL (0.0-0.1) 11/14/23 05:33 Nucleated RBC % (auto) 0.3 % 11/14/23 05:33 Nucleated RBCs # 0.0 /100WBC 11/14/23 05:33 Haptoglobin 209.0 mg/L (30-200) H 11/10/23 12:22 PT 14.60 SECONDS (12.1-14.9) 11/05/23 10:36 INR 1.11 (0.8-1.2) 11/05/23 10:36 APTT 29.1 SECONDS (23.9-36.7) 11/10/23 12:22 Specimen Type Arterial 11/09/23 05:30 Sample Site Radial, right 11/09/23 05:30 ABG pH 7.45 (7.35-7.45) 11/09/23 05:30 ABG pCO2 51.0 mmHg (35-45) H 11/09/23 05:30 ABG pO2 77.9 mmHg (80.0-100.0) L 11/09/23 05:30 ABG PO2/FiO2 Ratio 0 11/09/23 05:30 ABG HCO3 35.8 mmol/L (22-26) H 11/09/23 05:30 ABG O2 Saturation 98.8 11/05/23 12:38 ABG Base Excess 10.7 mmol/L (-2.0-2.0) H 11/09/23 05:30 Geremias Test Pos 11/09/23 05:30 A-a O2 Gradient 16.5 mmHg (5-10) H 11/05/23 12:38 Hematocrit 23.5 % (42-52) L 11/09/23 05:30 Hgb O2 Saturation 96.2 % (95-100) 11/05/23 12:38 Carboxyhemoglobin 2.3 %THgb (0.4-20.1) 11/05/23 12:38 Methemoglobin 0.3 % (0.4-1.5) L 11/05/23 12:38 Total Hemoglobin 7.3 g/dL (14-18) L 11/05/23 12:38 Sodium 136.0 mmol/L (131-143) 11/05/23 12:38 Potassium 3.8 mmol/L (3.5-5.0) 11/05/23 12:38 Glucose 92.0 mg/dL (70-115) 11/05/23 12:38 Ionized Calcium 1.1 mmol/L (1.1-1.4) 11/05/23 12:38 O2 Delivery Device Bipap 11/09/23 05:30 O2 Liters/Min 5.0 % 11/05/23 12:38 FiO2 35.0 % 11/09/23 05:30 Direct Service Professional ID Alewe 11/09/23 05:30 Sodium 137 mmol/L (136-145) 11/14/23 05:33 Potassium 4.1 mmol/L (3.5-5.1) 11/14/23 05:33 Chloride 95 mmol/L (98-107) L 11/14/23 05:33 Carbon Dioxide 36 mmol/L (22-29) H 11/14/23 05:33 Anion Gap 10.1 (5-19) 11/14/23 05:33 BUN 18 mg/dL (8-23) 11/14/23 05:33 Creatinine 0.3 mg/dL (0.7-1.2) L 11/14/23 05:33 GFR Calculation Not Reportable 11/14/23 05:33 Glucose 167 mg/dL (65-115) H 11/14/23 05:33 POC Glucose 160 mg/dL (70-110) H 11/14/23 16:56 Calculated Osmolality 290 mOsm/kg (285-295) 11/14/23 05:33 Lactic Acid 1.5 mmol/L (0.5-2.2) 11/05/23 15:53 Calcium 8.8 mg/dL (8.5-10.5) 11/14/23 05:33 Iron 59 ug/dL (59-158) 11/05/23 15:53 Ferritin 340 ng/mL (30-400) 11/05/23 15:53 Total Bilirubin 1.0 mg/dL (0.15-1.2) 11/10/23 12:22 Direct Bilirubin 0.40 mg/dL (0.00-0.30) H 11/10/23 12:22 Indirect Bilirubin 0.60 11/10/23 12:22 AST 34 U/L (0-40) 11/05/23 10:36 ALT 67 U/L (0-41) H 11/05/23 10:36 Alkaline Phosphatase 44 U/L (40-130) 11/05/23 10:36 Lactate Dehydrogenase 218 U/L (135-225) 11/11/23 04:39 Troponin T Baseline 26 ng/L (0-15) H 11/05/23 15:53 Troponin T 120 Minute 27.08 ng/L (0-15) H 11/05/23 18:02 Delta Troponin T 1.08 ABS# (0-10) 11/05/23 18:02 Troponin T Hi Sens 6Hr 23.65 ng/L (0-15) H 11/05/23 21:56 Troponin T Hi Sens 6Hr Delta -2.35 ng/L (0-12) L 11/05/23 21:56 NT-Pro-B Natriuret Pep 703 pg/mL (0-125) H 11/06/23 02:06 Total Protein 5.4 g/dL (6.6-8.7) L 11/05/23 10:36 Albumin 3.1 g/dL (3.5-5.2) L 11/05/23 10:36 Globulin 2.3 g/dL (1.3-4.6) 11/05/23 10:36 Procalcitonin 0.15 ng/mL (0-0.5) 11/05/23 15:53 Bronch Specimen Source Left lower lobe 11/14/23 12:00 Bronchial Fluid Color Red 11/14/23 12:00 Bronchial Fluid Appearance Bloody (CLEAR) 11/14/23 12:00 Bronch Cells Counted 200 11/14/23 12:00 Bronchial Neutrophils 29.00 % (0.9-2.3) H 11/14/23 12:00 Bronchial Lymphocytes 5.00 % (10.71-12.91) L 11/14/23 12:00 Bronchial Macrophages 66.00 % (83.6-86.8) L 11/14/23 12:00 Bronchial Diff Comment Yes 11/14/23 12:00 Vancomycin Trough 14.0 ug/mL (10-15) 11/13/23 16:15 Blood Type A Negative 11/10/23 12:22 Rho(D) Type Rh negative 11/10/23 12:22 Antibody Screen Negative 11/10/23 12:22 EFREM, Poly Interpret Negative 11/10/23 12:22 Crossmatch See Detail 11/10/23 12:22 Radiology Impressions Chest X-Ray 11/07/23 09:51 IMPRESSION: Resolution of upper lung opacities with more focal consolidation in the left lower lung as above. Chest CTA 11/12/23 10:11 IMPRESSION: 1. The significant bilateral multifocal pneumonia has worsened when compared to prior imaging 2. No evidence of PE 3. Extensive calcified coronary artery disease 4. Small mediastinal lymph nodes, likely reactive Recent Clincial Data Last Vital Signs Temp 97 F L 11/14/23 13:10 Pulse 74 11/14/23 18:14 Resp 20 H 11/14/23 16:35 BP 108/71 11/14/23 18:14 Pulse Ox 96 11/14/23 18:14 O2 Del Method Nasal Cannula 11/14/23 16:35 O2 Flow Rate 5 11/14/23 16:35 FiO2 35 11/14/23 04:07 Vital Signs Temp Pulse Resp BP Pulse Ox O2 Del Method O2 Flow Rate 11/14/23 18:14 74 108/71 96 11/14/23 18:10 105/60 96 11/14/23 16:35 69 20 H 99 Nasal Cannula 5 11/14/23 16:10 102/68 98 11/14/23 14:10 79 18 115/80 97 11/14/23 13:40 84 17 116/82 93 11/14/23 13:10 97 F L 76 18 105/60 92 11/14/23 12:55 76 18 118/71 96 Nasal Cannula 5 11/14/23 12:50 77 18 126/75 94 Nasal Cannula 5 11/14/23 12:45 84 18 132/66 97 Nasal Cannula 5 11/14/23 12:40 97.2 F L 67 18 128/98 97 Nasal Cannula 5 11/14/23 12:35 74 16 128/88 93 Nasal Cannula 5 11/14/23 12:30 72 15 130/85 96 Nasal Cannula 5 11/14/23 12:25 76 16 118/85 97 Nasal Cannula 5 11/14/23 12:20 5 11/14/23 12:20 97.1 F L 75 14 128/83 99 Nasal Cannula 5 11/14/23 11:04 97.1 F L 79 18 133/86 95 Nasal Cannula 4 11/14/23 07:51 97.5 F L 70 18 129/80 98 11/14/23 07:47 76 11/14/23 07:37 74 18 95 Nasal Cannula 4 Intake & Output/Weight 11/12/23 11/13/23 11/14/23 11/15/23 06:59 06:59 06:59 06:59 Intake Total 1610 / 1610 2750 / 2750 2320 / 2320 830 / 830 Output Total 1600 / 1600 3150 / 3150 1550 / 1550 0 / 0 Balance -400 / -400 770 / 770 830 / 830 Weight 96.275 kg 98.6 kg 94.092 kg Vitals Last Vital Signs Temp 97 F L 11/14/23 13:10 Pulse 74 11/14/23 18:14 Resp 20 H 11/14/23 16:35 BP 108/71 11/14/23 18:14 Pulse Ox 96 11/14/23 18:14 O2 Del Method Nasal Cannula 11/14/23 16:35 O2 Flow Rate 5 11/14/23 16:35 FiO2 35 11/14/23 04:07 TS Medications Medications Acetaminophen (Acetaminophen 325 Mg Tablet) 650 mg PO Q6H PRN PRN Reason: Mild/Mod Pain Or Temp >/= 101 Albuterol/Ipratropium (Ipratropium-Albuterol 3 Ml Neb) 3 ml INHALATION Q4H.RESPIRATORY JANE Last Admin: 11/14/23 16:35 Dose: 3 ml Alprazolam (Alprazolam 0.5 Mg Tablet) 0.25 mg PO TID PRN PRN Reason: anxiety Last Admin: 11/14/23 04:01 Dose: 0.25 mg Amiodarone HCl (Amiodarone 200 Mg Tablet) 200 mg PO DAILY JANE Last Admin: 11/14/23 09:07 Dose: 200 mg Benzonatate (Benzonatate 100 Mg Capsule) 200 mg PO TID JANE Last Admin: 11/14/23 10:28 Dose: Not Given Budesonide (Budesonide 0.5 Mg/2 Ml Neb) 0.5 mg INHALATION BID.RESPIRATORY JANE Last Admin: 11/14/23 07:36 Dose: 0.5 mg Furosemide (Furosemide 10 Mg/Ml Sdv 2ml) 20 mg IVP Q24H JANE Last Admin: 11/11/23 16:11 Dose: 20 mg Vancomycin/PEG/NADA/Lysine/Water (Vancocin) 1,250 mg in 250 mls @ 166.667 mls/hr IV 0500,1700 JANE Last Admin: 11/14/23 17:50 Dose: 250 mls/hr Meropenem 1,000 mg/ Sodium (Chloride) 50 mls @ 100 mls/hr IV Q8H JANE; Protocol Last Admin: 11/14/23 17:49 Dose: 50 mls/hr Dextrose (D5w) 500 mls @ 0 mls/hr IV ONCE PRN; Protocol PRN Reason: Adult Acute Hypoglycemia Prot Dextrose (D10w) 125 mls @ 750 mls/hr IV PRN PRN; Protocol PRN Reason: Adult Acute Hypoglycemia Nursing Protocol Dextrose (D10w) 250 mls @ 1,000 mls/hr IV PRN PRN; Protocol PRN Reason: Adult Acute Hypoglycemia Nursing Protocol Sodium Chloride (Sodium Chloride 0.9%) 1,000 mls @ 30 mls/hr IV .Q24H JANE Stop: 11/15/23 11:14 Last Infusion: 11/14/23 12:31 Dose: Infused Insulin Human Lispro (Insulin Lispro 100 Unit/1 Ml) 0 unit SUBCUT TIDWM JANE; Protocol Last Admin: 11/14/23 17:55 Dose: 4 unit Lactulose (Lactulose Oral Liq 20 Gm/30 Ml Udc) 20 gm PO Q12H [facility] Last Admin: 11/14/23 17:50 Dose: 20 gm Levetiracetam (Levetiracetam 500 Mg Tablet) 500 mg PO BID [facility] Last Admin: 11/14/23 17:50 Dose: 500 mg Lidocaine HCl (Lidocaine 1% Inj 10 Ml (Per Ml)) 0.1 ml INTRADERMA PRN PRN PRN Reason: anesthetic prior to IV start Lidocaine HCl (Lidocaine 2% Viscous 15 Ml Udc) 1 ml TOPICAL PRN PRN PRN Reason: Anesthetic prior to IV start Methylprednisolone Sodium Succinate (Methylprednisolone Sod Succ 125 Mg/2 Ml Inj) 60 mg IVP Q12H [facility] Last Admin: 11/14/23 00:26 Dose: 60 mg Midazolam HCl (Midazolam 1 Mg/Ml Inj 2 Ml) 2 mg IVP Q5M PRN PRN Reason: Preop Anxiety Morphine Sulfate (Morphine 4 Mg/Ml Sdv 1 Ml) 2 mg IVP Q4H PRN PRN Reason: SEVERE PAIN Last Admin: 11/14/23 09:07 Dose: 2 mg Morphine Sulfate (Morphine 4 Mg/Ml Sdv 1 Ml) 0 mg IVP Q5M PRN PRN Reason: Breakthrough Pain PACU PhaseII Naloxone HCl (Naloxone 0.4 Mg/Ml Sdv) 0.1 mg IVP Q2M PRN PRN Reason: OPIATERV Nystatin (Nystatin 100,000 Unit/Ml Udc 5 Ml) 500,000 unit PO QID [facility] Last Admin: 11/14/23 17:50 Dose: 500,000 unit Ondansetron HCl (Ondansetron 2 Mg/Ml Sdv 2 Ml) 4 mg IVP Q8H PRN PRN Reason: vomiting, or N/V if npo Ondansetron HCl (Ondansetron 2 Mg/Ml Sdv 2 Ml) 4 mg IVP Q15M PRN PRN Reason: Nausea/Vomiting PACU PHASE II Potassium Chloride (Potassium Chloride Er 20 Meq Tablet) 20 meq PO DAILY [facility] Last Admin: 11/13/23 09:17 Dose: 20 meq Sucralfate (Sucralfate 1 Gm/10 Ml Oral Liq Udc) 1 gm PO Q6H [facility] Last Admin: 11/14/23 10:28 Dose: Not Given Discontinued Medications Acetaminophen/Codeine Phosphate (Acetaminophen-Codeine 120-12 Mg/5 Ml Udc) 2.5 ml PO Q4H PRN PRN Reason: COUGH Aspirin (Aspirin 81 Mg Ec Tablet) 81 mg PO DAILY [facility] Last Admin: 11/08/23 09:36 Dose: 81 mg Atorvastatin Calcium (Atorvastatin 40 Mg Tablet) 40 mg PO BEDTIME [facility] Last Admin: 11/08/23 21:43 Dose: 40 mg Benzocaine (Cetylpyridinium Lozenge) 1 each MUCOUS MEM ONCE ONE Stop: 11/14/23 11:03 Last Admin: 11/14/23 16:53 Dose: Not Given Clonazepam (Clonazepam 0.5 Mg Tablet) 0.5 mg PO TID PRN PRN Reason: ANXIETY Last Admin: 11/09/23 14:47 Dose: 0.5 mg Dexamethasone (Dexamethasone 10 Mg/Ml Inj) 10 mg IVP ONCE ONE Stop: 11/10/23 11:51 Last Admin: 11/10/23 12:50 Dose: 10 mg Dexamethasone (Dexamethasone 4 Mg/Ml Inj) Confirm Administered Dose 4 mg .ROUTE .STK-MED ONE Stop: 11/14/23 10:30 Enoxaparin Sodium (Enoxaparin 100 Mg/Ml Syringe) 90 mg 1 mg/kg (90 mg) SUBCUT Q12H [facility] Last Admin: 11/09/23 22:30 Dose: Not Given Furosemide (Furosemide 10 Mg/Ml Sdv 4ml) 40 mg IVP ONCE ONE Stop: 11/05/23 15:04 Last Admin: 11/05/23 15:37 Dose: 40 mg Furosemide (Furosemide 10 Mg/Ml Sdv 2ml) 20 mg IVP ONCE ONE Stop: 11/07/23 09:52 Last Admin: 11/07/23 11:26 Dose: 20 mg Furosemide (Furosemide 20 Mg Tablet) 40 mg PO DAILY [facility] Last Admin: 11/11/23 08:53 Dose: 40 mg Furosemide (Furosemide 10 Mg/Ml Sdv 2ml) 20 mg IVP ONCE ONE Stop: 11/09/23 12:48 Last Admin: 11/09/23 13:35 Dose: 20 mg Furosemide (Furosemide 10 Mg/Ml Sdv 4ml) 40 mg IVP ONCE ONE Stop: 11/12/23 22:00 Last Admin: 11/12/23 22:51 Dose: 40 mg Heparin Sodium (Porcine) (Heparin 5,000 Unit/Ml Inj 1 Ml) 0 unit IV PRN PRN; Protocol PRN Reason: Heparin weight-base protocol Last Admin: 11/05/23 20:08 Dose: 4,600 unit Vancomycin HCl 1,000 mg/ (Sodium Chloride) 250 mls @ 250 mls/hr IV ONCE ONE; Protocol Stop: 11/05/23 12:01 Last Infusion: 11/05/23 13:01 Dose: Infused Piperacillin Sod/Tazobactam (Sod 3.375 gm/ Sodium Chloride) 50 mls @ 100 mls/hr IV ONCE ONE; Protocol Stop: 11/05/23 11:31 Last Infusion: 11/05/23 11:56 Dose: Infused Sodium Chloride (Sodium Chloride 0.9%) 1,000 mls @ 999 mls/hr IV .Q1H1M ONE Stop: 11/05/23 13:01 Last Infusion: 11/05/23 13:01 Dose: Infused Piperacillin Sod/Tazobactam (Sod 3.375 gm/ Sodium Chloride) 50 mls @ 12.5 mls/hr IV Q8H JANE; Protocol Last Infusion: 11/12/23 17:15 Dose: Infused Heparin Sodium/Sodium Chloride (Heparin Drip) 25,000 unit in 500 mls @ 0 mls/hr IV .Q0M JANE; Protocol Last Titration: 11/06/23 12:04 Dose: Infused Vancomycin/PEG/NADA/Lysine/Water (Vancocin) 1,500 mg in 300 mls @ 200 mls/hr IV Q12H JANE Last Admin: 11/09/23 22:35 Dose: Not Given Vancomycin/PEG/NADA/Lysine/Water (Vancocin) 1,500 mg in 300 mls @ 200 mls/hr IV Q12H JANE Last Infusion: 11/07/23 06:07 Dose: Infused Vancomycin/PEG/NADA/Lysine/Water (Vancocin) 1,500 mg in 300 mls @ 200 mls/hr IV Q12H JANE Last Admin: 11/09/23 22:35 Dose: Not Given Lidocaine HCl (Xylocaine) Confirm Administered Dose 4 mls @ as directed .ROUTE .STK-MED ONE Stop: 11/14/23 10:30 Iohexol (Iohexol 350 Mg/Ml 500 Ml Btl (Per Ml)) 0 ml IV ONCE ONE Stop: 11/05/23 11:08 Last Admin: 11/05/23 11:07 Dose: 80 ml Lidocaine HCl (Lidocaine 1% Inj 10 Ml (Per Ml)) 10 ml XX ONCE ONE Stop: 11/14/23 11:00 Last Admin: 11/14/23 11:55 Dose: 3 ml Methylprednisolone Sodium Succinate (Methylprednisolone Sod Succ 125 Mg/2 Ml Inj) 125 mg IVP ONCE ONE Stop: 11/05/23 15:09 Last Admin: 11/05/23 15:35 Dose: 125 mg Methylprednisolone Sodium Succinate (Methylprednisolone Sod Succ 40 Mg/Ml Inj) 40 mg IVP Q6H JANE Last Admin: 11/06/23 11:32 Dose: 40 mg Metoprolol Tartrate (Metoprolol Tartrate 25 Mg Tablet) 25 mg PO BID@0900,2100 [facility] Last Admin: 11/08/23 09:36 Dose: 25 mg Morphine Sulfate (Morphine 4 Mg/Ml Sdv 1 Ml) 2 mg IVP Q4H PRN PRN Reason: SEVERE PAIN Last Admin: 11/09/23 14:46 Dose: 2 mg Ondansetron HCl (Ondansetron 2 Mg/Ml Sdv 2 Ml) Confirm Administered Dose 4 mg .ROUTE .STK-MED ONE Stop: 11/14/23 10:30 Pantoprazole Sodium (Pantoprazole 40 Mg Sdv) 40 mg IVP Q12H [facility] Last Admin: 11/09/23 14:47 Dose: 40 mg Potassium Chloride (Potassium Chloride Oral Liq 20 Meq/15 Ml Udc) 40 meq PO ONCE ONE Stop: 11/09/23 12:48 Last Admin: 11/09/23 14:58 Dose: Not Given Potassium Chloride (Potassium Chloride Er 20 Meq Tablet) 40 meq PO ONCE ONE Stop: 11/09/23 14:58 Last Admin: 11/09/23 17:31 Dose: 40 meq Propofol (Propofol 10 Mg/Ml Sdv 20 Ml) Confirm Administered Dose 200 mg .ROUTE .STK-MED ONE Stop: 11/14/23 10:30 Rocuronium [place] (Rocuronium 10 Mg/Ml Inj 5ml) Confirm Administered Dose 50 mg .ROUTE .STK-MED ONE Stop: 11/14/23 10:30 Sodium Chloride (Sodium Chloride 0.9% 100 Ml Bag) 50 ml IV PRN PRN PRN Reason: Blood transfusion prime and flush Stop: 11/07/23 07:17 Sodium Chloride (Sodium Chloride 0.9% 100 Ml Bag) 50 ml IV PRN PRN PRN Reason: Blood transfusion prime and flush Stop: 11/07/23 12:07 Sodium Chloride (Sodium Chloride 0.9% 100 Ml Bag) 50 ml IV PRN PRN PRN Reason: Blood transfusion prime and flush Stop: 11/09/23 10:02 Sodium Chloride (Sodium Chloride 0.9% 100 Ml Bag) 50 ml IV PRN PRN PRN Reason: Blood transfusion prime and flush Stop: 11/11/23 11:50 Last Admin: 11/10/23 15:56 Dose: 50 ml Sodium Chloride (Sodium Chloride 0.9% 100 Ml Bag) 50 ml IV PRN PRN PRN Reason: Blood transfusion prime and flush Stop: 11/13/23 11:16 Sugammadex Sodium (Sugammadex 200 Mg/2 Ml Sdv) Confirm Administered Dose 400 mg .ROUTE .STK-MED ONE Stop: 11/14/23 11:16 Allergies No Known Allergies Allergy (Verified 11/05/23 10:30) Home Medications albuterol sulfate 90 mcg/actuation aerosol inhaler (ProAir HFA) 1 inh inhalation QID PRN Shortness Of Breath 10/09/20 [History Confirmed 11/05/23] cholecalciferol (vitamin D3) 25 mcg (1,000 unit) capsule (Vitamin D3) 25 mcg PO DAILY ##0 10/26/20 [History Confirmed 11/05/23] levetiracetam 500 mg tablet 500 mg PO BID 02/21/23 [History Confirmed 11/05/23] rosuvastatin 40 mg tablet 40 mg PO QPM 02/21/23 [History Confirmed 11/05/23] prednisolone 5 mg tablet 5 mg PO DAILY #30 tabs 06/30/23 [Rx Confirmed 11/05/23] budesonide 0.5 mg/2 mL suspension for nebulization 0.5 mg (2 mL) inhalation BID #120 mL 08/02/23 [Rx Confirmed 11/05/23] tiotropium bromide 1.25 mcg/actuation mist for inhalation (Spiriva Respimat) 2 puff inhalation DAILY #4 grams 08/02/23 [Rx Confirmed 11/05/23] alprazolam 0.5 mg tablet (Xanax) 0.25 mg (1/2 x 0.5 mg) PO TID PRN anxiety #11 tabs 10/30/23 [Rx Confirmed 11/05/23] amoxicillin 875 mg-potassium clavulanate 125 mg tablet 1 tab PO BID 7 days #14 tabs 10/30/23 [Rx Confirmed 11/05/23] aspirin 81 mg tablet,delayed release 81 mg PO DAILY 30 days #30 tabs 10/30/23 [Rx Confirmed 11/05/23] benzonatate 100 mg capsule 200 mg (2 x 100 mg) PO Q8H PRN cough 7 days #42 caps 10/30/23 [Rx Confirmed 11/05/23] enoxaparin 80 mg/0.8 mL subcutaneous syringe 80 mg (0.8 mL) SUBCUT Q12H 30 days #48 mL 10/30/23 [Rx Confirmed 11/05/23] furosemide 20 mg tablet (Lasix) 40 mg (2 x 20 mg) PO DAILY 30 days #60 tabs 10/30/23 [Rx Confirmed 11/05/23] metoprolol tartrate 25 mg tablet 25 mg PO BID@0900,2100 30 days #60 tabs 10/30/23 [Rx Confirmed 11/05/23] pantoprazole 40 mg tablet,delayed release (Protonix) 40 mg PO BID 30 days #60 tabs 10/30/23 [Rx Confirmed 11/05/23] potassium chloride 20 mEq tablet,extended release 20 meq PO DAILY 30 days #30 tabs 10/30/23 [Rx Confirmed 11/05/23] albuterol sulfate 2.5 mg/3 mL (0.083 %) solution for nebulization 2.5 mg (3 mL) inhalation Q4H PRN shortness of breath or wheezing #360 mL 10/31/23 [Rx Confirmed 11/05/23] guaifenesin 400 mg tablet 400 mg PO QID PRN cough #120 tabs 10/31/23 [Rx Confirmed 11/05/23] amiodarone 200 mg tablet (Pacerone) 200 mg PO DAILY 11/05/23 [History Confirmed 11/05/23] Discharge Plan Discharge Patient Disposition: Xfer SNF Condition: Stable Prescriptions: No Action albuterol sulfate [ProAir HFA] 90 mcg/actuation HFA aerosol inhaler 1 inh inhalation QID PRN (Reason: Shortness Of Breath) budesonide 0.5 mg/2 mL suspension for nebulization 0.5 mg inhalation BID Qty: 120 6RF Spiriva Respimat 1.25 mcg/actuation mist 2 puff inhalation DAILY Qty: 4 6RF prednisolone 5 mg tablet 5 mg PO DAILY Qty: 30 3RF guaifenesin 400 mg tablet 400 mg PO QID PRN (Reason: cough) Qty: 120 6RF albuterol sulfate 2.5 mg /3 mL (0.083 %) solution for nebulization 2.5 mg inhalation Q4H PRN (Reason: shortness of breath or wheezing) Qty: 360 0RF cholecalciferol (vitamin D3) [Vitamin D3] 25 mcg (1,000 unit) Capsule 25 mcg PO DAILY Qty: 0 levetiracetam 500 mg Tablet 500 mg PO BID rosuvastatin 40 mg Tablet 40 mg PO QPM aspirin 81 mg Tablet,Delayed Release (Dr/Ec) 81 mg PO DAILY 30 Days Qty: 30 0RF benzonatate 100 mg Capsule 200 mg PO Q8H PRN (Reason: cough) 7 Days Qty: 42 0RF amoxicillin-pot clavulanate 875-125 mg Tablet 1 tab PO BID 7 Days Qty: 14 0RF enoxaparin 80 mg/0.8 mL Syringe 80 mg SUBCUT Q12H 30 Days Qty: 48 0RF metoprolol tartrate 25 mg Tablet 25 mg PO BID@0900,2100 30 Days Qty: 60 0RF pantoprazole [Protonix] 40 mg tablet,delayed release (DR/EC) 40 mg PO BID 30 Days Qty: 60 0RF furosemide [Lasix] 20 mg tablet 40 mg PO DAILY 30 Days Qty: 60 0RF potassium chloride 20 mEq tablet extended release 20 meq PO DAILY 30 Days Qty: 30 0RF alprazolam [Xanax] 0.5 mg tablet 0.25 mg PO TID PRN (Reason: anxiety) Qty: 11 0RF Pacerone 200 mg tablet 200 mg PO DAILY Discharge Orders: Transfer Out of Facility (Order); Ordered 11/14/23 Ordered By: Elliot Lorenzo Referrals: [facility]– [place][Note 2] [Outside] Jackie Kulkarni MD [Primary Care Provider] - Datar,Alex Frances MD [Physician] - 11/30/23 11:00 am Patient Instructions: Heart Failure (DC), CHF Stoplight, Opioid Safety Transfer Attestations Time Spent in Transfer Care: greater than 30 min Quality Metrics Clinical Quality Measures [ No reported AMI, CVA or VTE this stay] Coding Level of Care Code Acute Code for Chg Fwd Diagnoses DNR (do not resuscitate) Z66 Pulmonary hypertension I27.20 Persistent atrial fibrillation I48.19 Solitary pulmonary nodule on lung CT R91.1 Healthcare-associated pneumonia J18.9 Acute on chronic respiratory failure with hypoxia and hypercapnia J96.21; J96.22 Chronic bronchitis, unspecified chronic bronchitis type J42 COPD type: chronic bronchitis Chronic bronchitis type: unspecified Acute anemia D64.9 Blue toe syndrome of left lower extremity 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
[2023-11-14] MEDS: benzonatate 100 mg Capsule 200 MG PO (20:10)
[2023-11-14 20:11] LABS: Glucose Point of Care 174 mg/dL (70-110)
[2023-11-15] VITALS (8 sets, daily range): BP systolic 104–107; BP diastolic 68–69; PULSE 64–76; RESP 16–22; TEMP 36.3–36.5; O2SAT 93–98
[2023-11-15] MEDS: morphine 4 mg/mL SDV 1 mL 2 MG IVP ×2 (00:02→07:34)
[2023-11-15] MEDS: meropenem 1,000 MG in sodium chloride 0.9% (plus) 50 ML 100 MG IV ×2 (02:01→07:40)
[2023-11-15] MEDS: ipratropium-albuterol 3 mL Neb INHALATION (04:25)
[2023-11-15 05:37] LABS: Hematocrit 30.7 % (37-53); Lymphocytes # 0.2 10^3/uL (0.8-4.8); Mean Corpuscular Hemoglobin 29.8 pg (27-33); Mean Corpuscular Volume 99.4 fl (82-101); Mean Platelet Volume 10.2 fL (7.4-10.4); Monocytes # 0.2 10^3/uL (0.2-0.9); Monocytes % 2.4 %; Neutrophils # 8.15 10^3/uL (1.8-7.7); Neutrophils % 94.2 %; Nucleated Red Blood Cells # 0.1 /100WBC; Nucleated Red Blood Cells % 0.6 %; Platelet Count 157 10^3/cmm (157-399); Red Blood Count 3.09 10^6/uL (3.85-5.65); Red Cell Distribution Width 18.4 % (12.1-15.1); White Blood Count 8.65 10^3/uL (3.29-11.43)
[2023-11-15] MEDS: lactulose oral liq 20 gm/30 mL UDC PO (05:38)
[2023-11-15] MEDS: sucralfate 1 gm/10 mL Oral Liq UDC PO (05:38)
[2023-11-15] MEDS: vancomycin 1,250 MG/250 ML PIGGYBACK 166.659999999999997 MG IV (05:39)
[2023-11-15 05:58] LABS: Anion Gap 10.5 (5-19); Blood Urea Nitrogen 21 mg/dL (8-23); Carbon Dioxide 36 mmol/L (22-29); Chloride 93 mmol/L (98-107); Glucose 182 mg/dL (65-115); Osmolality Calculated 288 mOsm/kg (285-295); Potassium 4.5 mmol/L (3.5-5.1); Sodium 135 mmol/L (136-145)
[2023-11-15 06:04] LABS: Creatinine Clr Calc Pharmacy 92.9239
[2023-11-15 06:30] LABS: Glucose Point of Care 196 mg/dL (70-110)
[2023-11-15] MEDS: insulin lispro 100 unit/1 mL SUBCUT (07:32)
[2023-11-15] MEDS: levETIRAcetam 500 mg Tablet PO (07:33)
[2023-11-15] MEDS: ALPRAZolam 0.5 mg Tablet 0.25 MG PO (07:33)
[2023-11-15] MEDS: nystatin 100,000 unit/mL UDC 5 mL 500000 UNIT PO (07:33)
[2023-11-15] MEDS: benzonatate 100 mg Capsule 200 MG PO (07:33)
[2023-11-15] MEDS: amiodarone 200 mg Tablet PO (07:34)
== END 2023-11-15 08:22 | disposition short-term general hospital (02) | DRG 193 ==
LOC: ER 12:11 → CSU 12:22 → MEDSURG 11-09 18:55
PROVIDERS: Internal Medicine; Internal Medicine Pulmonary Disease; Admitting Provider Family Medicine; Emergency Provider Emergency Medicine; PCP Family Medicine; Visit Provider Internal Medicine
PROC: 0BJ08ZZ Inspection of Tracheobronchial Tree, Via Natural or Artificial Opening Endoscopic (ICD-10-PCS; CPT 31622; principal; 2023-11-14 11:15)
DX: J18.9 Pneumonia, unspecified organism (principal); J96.01 Acute respiratory failure with hypoxia; J96.02 Acute respiratory failure with hypercapnia; I48.19 Other persistent atrial fibrillation; J44.1 Chronic obstructive pulmonary disease with (acute) exacerbation; R04.2 Hemoptysis; I75.022 Atheroembolism of left lower extremity; I10 Essential (primary) hypertension; E78.5 Hyperlipidemia, unspecified; G47.33 Obstructive sleep apnea (adult) (pediatric); R91.1 Solitary pulmonary nodule; I71.21 Aneurysm of the ascending aorta, without rupture; Z66 Do not resuscitate; I27.20 Pulmonary hypertension, unspecified; I70.223 Atherosclerosis of native arteries of extremities with rest pain, bilateral legs; Z79.82 Long term (current) use of aspirin; Z79.01 Long term (current) use of anticoagulants; Z98.62 Peripheral vascular angioplasty status; Z87.891 Personal history of nicotine dependence; Z87.01 Personal history of pneumonia (recurrent); Z86.711 Personal history of pulmonary embolism
CPT/HCPCS: 31624; 31645; 36415; 36416; 36430; 36600; 51702; 71045; 71275; 80048; 80051; 80053; 80202; 80503; 82247; 82248; 82274; 82330; 82728; 82803; 82805; 82962; 83010; 83540; 83605; 83615; 83880; 84145; 84484; 85014; 85018; 85025; 85049; 85610; 85730; 86850; 86880; 86900; 86920; 87040; 87070; 87106; 87205; 89050; 92523; 92610; 93005; 94640; 94660; 94664; 96365; 96367; 96372; 96376; 97110; 97161; 97530; 99285; A4222; C9113; J1100; J1644; J1650; J1815; J1940; J2185; J2270; J2405; J2543; J2704; J2919; J3370; J3490; J7030; J7050; J7626; P9016; Q9967

== ENCOUNTER 2024-05-24 16:37 | Inpatient (IN) | payer OTHER, MEDICARE, SELFPAY ==
[2024-05-24] VITALS (13 sets, daily range): BP systolic 123–154; BP diastolic 80–101; PULSE 86–114; RESP 18–29; TEMP 36.8–37; O2SAT 89–98; BMI 28.8; BMI 29.8
--- NOTE | 2024-05-24 16:43 | ECG_ITS ---
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 Measurements Intervals [place] Rate: 99 P: 0 LA: 0 QRS: 75 QRSD: 110 T: 120 QT: 353 QTc: 454 Interpretive Statements ATRIAL FIBRILLATION WITH ABERRANT CONDUCTION OR VENTRICULAR PREMATURE COMPLEXES NONSPECIFIC ST & T-WAVE ABNORMALITY ABNORMAL RHYTHM ECG Compared to ECG 11/05/2023 23:23:49 Ventricular premature complex(es) now present Aberrant conduction of supraventricular beat(s) now present T-wave abnormality still present Electronically Signed On 05-25-2024 15:57:25 [employer] by Andrew Petersen M.D. [email or web address]
--- NOTE | 2024-05-24 16:43 | XRR_ITS ---
PROCEDURE INFORMATION: Exam: XR Chest Exam date and time: 05/24/2024 5:10 PM Age: 73 years old Clinical indication: Shortness of breath; Additional info: SOB TECHNIQUE: Imaging protocol: Radiologic exam of the chest. Views: 1 view. COMPARISON: CT angio chest PE protcl [id number] 11/12/2023 1:29 PM FINDINGS: Lungs: Unremarkable. No consolidation. Pleural spaces: Unremarkable. No pleural effusion. No pneumothorax. Heart/Mediastinum: Unremarkable. No cardiomegaly. Bones/joints: Unremarkable. XR/XR chest 1V portable [id number] IMPRESSION: No acute findings.
--- NOTE | 2024-05-24 16:44 | ED_ITS ---
HPI - SOB/Dyspnea 2 General: Chief Complaint: Shortness of Breath/Dyspnea Stated Complaint: SOB Time Seen by Provider: 05/24/24 16:40 Source: patient Mode of arrival: ambulatory Limitations: no limitations History of Present Illness: HPI Narrative: 73-year-old male history of COPD along w ith CHF he had a recent right below-knee amputation he is here from custodial with increased shortness of breath and wheezing he wears 4 L at baseline he states the last 2 days he had increased cough wheezing EMS states that they had to put him on 6 L oxygen did give him a breathing treatment he said he has some slight improvement with her breathing treatment still has audible wheezing here he states his cough but nonproductive denies any fever denies any pain Associated symptoms: Deny abdominal pain, chest pain, fever(s), nausea or vomiting Related Data Home Medications Medication Instructions Recorded Confirmed albuterol sulfate 90 mcg/actuation 1 inh inhalation QID PRN Shortness 10/09/20 05/24/24 aerosol inhaler (ProAir HFA) Of Breath acetaminophen 325 mg tablet 650 mg PO QID PRN Pain 05/24/24 05/24/24 alprazolam 0.5 mg tablet 0.5 mg PO TID PRN Anxiety 05/24/24 05/24/24 amoxicillin 875 mg-potassium 1 tab PO BID 05/24/24 05/24/24 clavulanate 125 mg tablet aspirin 81 mg tablet 81 mg PO DAILY 05/24/24 05/24/24 bisacodyl 10 mg rectal suppository 10 mg NE DAILY PRN Constipation 05/24/24 05/24/24 (Dulcolax (bisacodyl)) bisacodyl 5 mg tablet,delayed 10 mg PO DAILY PRN Constipation 05/24/24 05/24/24 release (Dulcolax (bisacodyl)) budesonide 0.5 mg/2 mL suspension 0.5 mg inhalation Q4H PRN 05/24/24 05/24/24 for nebulization Shortness Of Breath cholecalciferol (vitamin D3) 25 100 mcg PO DAILY 05/24/24 05/24/24 mcg (1,000 unit) tablet escitalopram oxalate 10 mg tablet 10 mg PO DAILY 05/24/24 05/24/24 furosemide 20 mg tablet (Lasix) 20 mg PO BID 05/24/24 05/24/24 guaifenesin 600 mg tablet, 600 mg PO BID 05/24/24 05/24/24 extended release 12 hr hydrocodone 10 mg-acetaminophen 1 tab PO Q4H PRN Pain 05/24/24 05/24/24 325 mg tablet hyoscyamine sulfate 0.125 mg tablet 0.125 mg PO Q4H PRN Secretions 05/24/24 05/24/24 ipratropium 0.5 mg-albuterol 3 mg 3 ml inhalation Q6H PRN Shortness 05/24/24 05/24/24 (2.5 mg base)/3 mL nebulization Of Breath soln levalbuterol tartrate 45 2 inh inhalation Q6H PRN Shortness 05/24/24 05/24/24 mcg/actuation aerosol inhaler Of Breath levetiracetam 1,000 mg tablet 1,000 mg PO BID 05/24/24 05/24/24 magnesium hydroxide 400 mg/5 mL 30 ml PO Q3D PRN Constipation 05/24/24 05/24/24 oral suspension (Milk of [facility]) menthol 0.44 %-zinc oxide 20.6 % 1 applic topical TID 05/24/24 05/24/24 topical ointment (Calmoseptine) metoprolol tartrate 50 mg tablet 50 mg PO BID 05/24/24 05/24/24 morphine concentrate 20 mg/mL oral 10 mg sublingual Q2H PRN Severe 05/24/24 05/24/24 syringe (FOR ORAL USE ONLY) Pain (Scale Score 7-10) naloxone 0.4 mg/mL injection 0.4 mg SUBCUT Q3M PRN Opiate 05/24/24 05/24/24 solution Reversal nystatin 100,000 unit/gram topical 1 applic topical BID PRN prn 05/24/24 05/24/24 cream potassium chloride 10 mEq 10 meq PO DAILY 05/24/24 05/24/24 tablet,extended release sennosides 8.6 mg-docusate sodium 2 tab-cap PO BEDTIME 05/24/24 05/24/24 50 mg tablet sodium phosphates 19 gram-7 118 ml NE DAILY PRN Constipation 05/24/24 05/24/24 gram/118 mL enema (Fleet Enema) Previous Rx's Medication Instructions Recorded albuterol sulfate 2.5 mg/3 mL 2.5 mg (3 mL) inhalation Q4H PRN 10/31/23 (0.083 %) solution for nebulization shortness of breath or wheezing #360 mL guaifenesin 400 mg tablet 400 mg PO QID PRN cough #120 tabs 10/31/23 Allergies Allergy/AdvReac Type Severity Reaction Status Date / Time No Known Allergies Allergy Verified 11/05/23 10:30 Review of Systems 2 Const: Denies: fever(s), chills, body aches or change in appetite ENMT: Denies: throat pain or dental pain Card: Denies: chest pain Resp: Reports: dyspnea, non-productive cough and wheezing GI: Denies: abdominal pain, nausea, vomiting or diarrhea Musc: Denies: neck pain or back pain Skin/Breast: Denies: rash Neuro: Denies: headache(s) PFSH ED 2 PFSH: Medical History DNR (do not resuscitate) Healthcare-associated pneumonia Acute anemia Pneumonia CHF (congestive heart failure) Chronic respiratory failure 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 Pulmonary hypertension Acute on chronic respiratory failure with hypoxia and hypercapnia Cough Solitary pulmonary nodule on lung CT Ascending aortic aneurysm Persistent atrial fibrillation Peripheral arterial disease Benign essential HTN Iliac artery aneurysm, bilateral DA (obstructive sleep apnea) Hx of seizure disorder Depression Dyspnea on exertion Popliteal artery aneurysm Spinal stenosis Tinnitus Sleep apnea in adult A-fib COPD (chronic obstructive pulmonary disease) Surgical History H/O endovascular stent graft for abdominal aortic aneurysm History of PTCA S/P hernia repair incisional History of vascular surgery rt and left leg 2019 History of colonoscopy with polypectomy 2018 History of AAA (abdominal aortic aneurysm) repair 2010 History of left inguinal hernia repair 2016 Family History Mother Cancer Diabetes Father CAD (coronary artery disease) Cancer Chronic kidney disease (CKD) Diabetes Brother No problems noted. Sister No problems noted. Grandfather Lung disease Denies family history of Clotting disorder Dementia Suicide Anesthesia complication Bleeding disorder Stroke Social History Smoking and tobacco/nicotine status: former use of tobacco/nicotine Quit status (tobacco/nicotine): has quit using Year quit tobacco: May 2021 Former quit date comment: 2ppd X 50 Alcohol intake: never Substance/Drug Use: never Physical Exam 2 Const: COMMON NORMALS: patient oriented x3 GENERAL APPEARANCE: in distress and ill appearing HENMT: COMMON NORMALS: normocephalic and atraumatic HEAD & SCALP: n ormocephalic and atraumatic Eye: COMMON NORMALS: conjunctivae normal CONJUNCTIVA: Yes conjunctivae normal Neck/C-Spine: COMMON NORMALS: full ROM and supple Chest: COMMONS NORMALS: normal inspection of the chest Resp: COMMON NORMALS: No retractions EFFORT & INSPECTION: Yes labored and Yes audible wheezes AUSCULTATION: wheezes Cardio: COMMON NORMALS: regular rhythm and No murmurs present (Cardio) R ATE: tachycardic RHYTHM: regular rhythm Extremity: COMMON NORMALS: normal to inspection and full ROM Neuro: COMMON NORMALS: patient oriented x3, moves all extremities and no focal motor deficits Psych: COMMON NORMALS: mental status grossly normal, Normal thought process present and cooperative THOUGHT PROCESS: Normal thought process present Skin: COMMON NORMALS: no rashes or lesions noted and no wounds GENERAL SKIN EXAM: no rashes or lesions noted Course 2 Vital Signs: Vital signs: Vital Signs Temperature 97.9 F 05/25/24 04:00 Pulse Rate 84 05/25/24 04:00 Respiratory Rate 18 05/25/24 04:00 Blood Pressure 126/85 05/25/24 04:00 Pulse Oximetry 93 05/25/24 04:00 Oxygen Delivery Me thod Nasal Cannula 05/25/24 04:00 Oxygen Flow Rate 5 05/25/24 04:00 MDM - SOB/Dyspnea Medical Decision Making Patient presents here with COPD exacerbation requiring more oxygen he does feel improved here after breathing treatment no signs of pneumonia no signs of pulmonary embolism spoke to hospitalist will admit at this time Medical Records I reviewed the patient's medical records. Lab Data I reviewed the patient's lab results. 05/25/24 02:08 05/25/24 02:08 Labs/Radiology: Radiology Impressions Chest X-Ray 05/24/24 16:43 IMPRESSION: No acute findings. Chest CTA 05/24/24 20:12 IMPRESSION: There is no evidence for a pulmonary artery embolus. There is bilateral lower lobe endobronchial opacification consistent with infection and/or aspiration. Bilateral lung consolidation has shown significant improvement when compared with 11/12/2023. Laboratory Results WBC 13.77 10^3/uL (3.29-11.43) H 05/24/24 16:57 RBC 3.96 10^6/uL (3.85-5.65) 05/24/24 16:57 Hgb 11.00 g/dL (11.27-16.99) L 05/24/24 16:57 Hct 36.3 % (37-53) L 05/24/24 16:57 MCV 91.7 fl (82-101) 05/24/24 16:57 MCH 27.8 pg (27-33) 05/24/24 16:57 MCHC 30.3 g/dL (30-55) 05/24/24 16:57 RDW 16.2 % (12.1-15.1) H 05/24/24 16:57 Plt Count 260 10^3/cmm (157-399) 05/24/24 16:57 MPV 10.6 fL (7.4-10.4) H 05/24/24 16:57 Neut % (Auto) 85.3 % 05/24/24 16:57 Lymph % (Auto) 5.5 % 05/24/24 16:57 [place] % (Auto) 5.0 % 05/24/24 16:57 Eos % (Auto) 3.1 % 05/24/24 16:57 Baso % (Auto) 0.5 % 05/24/24 16:57 Neut # (Auto) 11.74 10^3/uL (1.8-7.7) H 05/24/24 16:57 Lymph # (Auto) 0.8 10^3/uL (0.8-4.8) 05/24/24 16:57 [place] # (Auto) 0.7 10^3/uL (0.2-0.9) 05/24/24 16:57 Eos # (Auto) 0.4 10^3/uL (0.0-0.8) 05/24/24 16:57 Baso # (Auto) 0.1 10^3/uL (0.0-0.1) 05/24/24 16:57 Nucleated RBC % (auto) 0 % 05/24/24 16:57 Nucleated RBCs # 0.0 /100WBC 05/24/24 16:57 D-Dimer 11.81 ug/mLFEU (0-0.59) H 05/24/24 16:57 Specimen Type Arterial 05/24/24 17:53 Sample Site Radial, left 05/24/24 17:53 ABG pH 7.38 (7.35-7.45) 05/24/24 17:53 ABG pCO2 63.6 mmHg (35-45) H* 05/24/24 17:53 ABG pO2 64.3 mmHg (80.0-100.0) L 05/24/24 17:53 ABG PO2/FiO2 Ratio 160 05/24/24 17:53 ABG HCO3 37.7 mmol/L (22-26) H 05/24/24 17:53 ABG Base Excess 10.5 mmol/L (-2.0-2.0) H 05/24/24 17:53 Geremias Test Pos 05/24/24 17:53 Hematocrit 33.8 % (42-52) L 05/24/24 17:53 O2 Delivery Device Nc 05/24/24 17:53 O2 Liters/Min 5.0 % 05/24/24 17:53 FiO2 40.0 % 05/24/24 17:53 Economics Department Chair ID Cak 05/24/24 17:53 Sodium 139 mmol/L (136-145) 05/24/24 16:57 Potassium 4.4 mmol/L (3.5-5.1) 05/24/24 16:57 Chloride 95 mmol/L (98-107) L 05/24/24 16:57 Carbon Dioxide 37 mmol/L (22-29) H 05/24/24 16:57 Anion Gap 11.4 (5-19) 05/24/24 16:57 BUN 18 mg/dL (8-23) 05/24/24 16:57 Creatinine 0.5 mg/dL (0.7-1.2) L 05/24/24 16:57 GFR Calculation Not Reportable 05/24/24 16:57 Glucose 124 mg/dL (65-115) H 05/24/24 16:57 Calculated Osmolality 291 mOsm/kg (285-295) 05/24/24 16:57 Lactic Acid 1.6 mmol/L (0.5-2.2) 05/24/24 16:57 Calcium 9.4 mg/dL (8.5-10.5) 05/24/24 16:57 Iron 39 ug/dL (59-158) L 05/24/24 16:57 TIBC 299 mcg/dl 05/24/24 16:57 % Saturation 13.0 % (20-50) L 05/24/24 16:57 Unsat Iron Binding 260 ug/dL (112-347) 05/24/24 16:57 Total Bilirubin 0.6 mg/dL (0.15-1.2) 05/24/24 16:57 AST 16 U/L (0-40) 05/24/24 16:57 ALT 7 U/L (0-41) 05/24/24 16:57 Alkaline Phosphatase 85 U/L (40-130) 05/24/24 16:57 NT-Pro-B Natriuret Pep 1897 pg/mL (0-125) H 05/24/24 16:57 NT-Pro-B Natriuret Pep Cancelled 05/24/24 16:57 Total Protein 7.2 g/dL (6.6-8.7) 05/24/24 16:57 Albumin 3.9 g/dL (3.5-5.2) 05/24/24 16:57 Globulin 3.3 g/dL (1.3-4.6) 05/24/24 16:57 Vitamin B12 474 pg/mL (232-1245) 05/24/24 16:57 Procalcitonin 0.09 ng/mL (0-0.5) 05/24/24 16:57 All radiology interpretation(s) finalized by discharge EKG Data EKG 1: I personally reviewed and interpreted this EKG as follows: EKG Interpretation Date: 05/24/24 EKG interpretation time: 17:03 Interpretation: afib hr [address] elevation qrs 110 qtc 409 Discharge Plan Discharge Patient Disposition: Admitted As Inpatient Admit Provider: Nelson Gibson Clinical Impression: Acute exacerbation of chronic obstructive airways disease Condition: Stable Coding Level of Care Code ED Director Industrial for [facility]
[2024-05-24] MEDS: albuterol 2.5 mg/3 mL Neb INHALATION (17:06)
[2024-05-24 17:12] LABS: Basophils # 0.1 10^3/uL (0.0-0.1); Basophils % 0.5 %; Eosinophils # 0.4 10^3/uL (0.0-0.8); Eosinophils % 3.1 %; Hematocrit 36.3 % (37-53); Lymphocytes # 0.8 10^3/uL (0.8-4.8); Lymphocytes % 5.5 %; Mean Corpuscular HGB Conc 30.3 g/dL (30-55); Mean Corpuscular Hemoglobin 27.8 pg (27-33); Mean Corpuscular Volume 91.7 fl (82-101); Mean Platelet Volume 10.6 fL (7.4-10.4); Monocytes # 0.7 10^3/uL (0.2-0.9); Neutrophils # 11.74 10^3/uL (1.8-7.7); Neutrophils % 85.3 %; Nucleated Red Blood Cells % 0 %; Platelet Count 260 10^3/cmm (157-399); Red Blood Count 3.96 10^6/uL (3.85-5.65); Red Cell Distribution Width 16.2 % (12.1-15.1); White Blood Count 13.77 10^3/uL (3.29-11.43)
[2024-05-24 17:38] LABS: Alanine Aminotransferase 7 U/L (0-41); Albumin Level 3.9 g/dL (3.5-5.2); Alkaline Phosphatase 85 U/L (40-130); Anion Gap 11.4 (5-19); Aspartate Amino Transferase 16 U/L (0-40); Blood Urea Nitrogen 18 mg/dL (8-23); Calcium 9.4 mg/dL (8.5-10.5); Carbon Dioxide 37 mmol/L (22-29); Chloride 95 mmol/L (98-107); Globulin 3.3 g/dL (1.3-4.6); Glucose 124 mg/dL (65-115); NT Pro B Type Natriuretic Pept 1897 pg/mL (0-125); Osmolality Calculated 291 mOsm/kg (285-295); Potassium 4.4 mmol/L (3.5-5.1); Sodium 139 mmol/L (136-145); Total Bilirubin 0.6 mg/dL (0.15-1.2); Total Protein 7.2 g/dL (6.6-8.7)
[2024-05-24 18:04] LABS: ABG PH Result 7.38 (7.35-7.45); Arterial Blood Gas Hematocrit 33.8 % (42-52); Base Excess ABG 10.5 mmol/L (-2.0-2.0); Blood Gas Allen Test Pos; Blood Gas Operator Identificat CAK; Blood Gas Sample Site Radial, left; Blood Gas Sample Type Arterial; HCO3 ABG 37.7 mmol/L (22-26); Oxygen Device NC; PO2 ABG 64.3 mmHg (80.0-100.0); PO2 FiO2 Ratio Arterial Blood 160
[2024-05-24 18:05] LABS: ABG PCO2 63.6 mmHg (35-45)
[2024-05-24] MEDS: methylPREDNISolone sod succ 125 mg/2 mL INJ IV (18:25)
[2024-05-24] MEDS: ipratropium-albuterol 3 mL Neb INHALATION (19:49)
[2024-05-24] MEDS: morphine 4 mg/mL SDV 1 mL IVP (19:51)
[2024-05-24 19:59] LABS: Lactic Sepsis W/Reflex 1.6 mmol/L (0.5-2.2)
[2024-05-24 20:02] LABS: D Dimer 11.81 ug/mLFEU (0-0.59)
[2024-05-24 20:07] LABS: Procalcitonin 0.09 ng/mL (0-0.5)
--- NOTE | 2024-05-24 20:12 | CTR_ITS ---
PROCEDURE INFORMATION: Exam: CTA Chest With Contrast Exam date and time: 05/24/2024 8:27 PM Age: 73 years old Clinical indication: Abnormal findings; Abnormal diagnostic tests; Elevated d-dimer; Shortness of breath; Prior surgery; Surgery date: 6+ months; Surgery type: Aaa endograft; Patient HX: SOB with hypoxia. Dimer 11.81. ; Additional info: Elevated dimer, resp failure TECHNIQUE: Imaging protocol: Computed tomographic angiography of the chest with contrast. Exam focused on the arteries. 3D rendering (Not supervised by radiologist): MIP and/or 3D reconstructed images were created by the technologist. Radiation optimization: All CT scans at this facility use at least one of these dose optimization techniques: automated exposure control; mA and/or kV adjustment per patient size (includes targeted exams where dose is matched to clinical indication); or iterative reconstruction. Contrast material: OMNI 350; Contrast volume: 72 ml; Contrast route: INTRAVENOUS (IV); COMPARISON: CT angio chest PE protcl [id number] 11/12/2023 1:29 PM RADIATION DOSE METRICS: Total DLP (mGy-cm): 408.81 FINDINGS: Pulmonary arteries: Normal. No pulmonary emboli. Aorta: Unremarkable. No aortic aneurysm. No aortic dissection. Lungs: There is probable atelectasis/scar in the lungs. There is bilateral lower lobe endobronchial opacification. No dominant lung mass. Left upper, lingular and bilateral lower lobe lung consolidation has improved in the interval. Pleural spaces: Unremarkable. No pneumothorax. No pleural effusion. Heart: Unremarkable. No cardiomegaly. No pericardial effusion. Coronary arteries: There is coronary artery calcification. Mediastinal space: There is right paratracheal mediastinal calcification. Lymph nodes: Unremarkable. No enlarged lymph nodes. Bones/joints: Degenerative change is identified in the spine. There is no evidence for acute fracture or malalignment. Soft tissues: Unremarkable. CT/CT angio chest PE protcl IMPRESSION: There is no evidence for a pulmonary artery embolus. There is bilateral lower lobe endobronchial opacification consistent with infection and/or aspiration. Bilateral lung consolidation has shown significant improvement when compared with 11/12/2023.
--- NOTE | 2024-05-24 20:15 | PM.HP ---
Providers/Chief Complaint Primary Care Provider: Jackie Kulkarni MD Chief Complaint: SOB History of Present Illness Kimo Hernandez is a 73 year old male with past medical history of COPD, atrial fibrillation previously on Eliquis, hypertension, hyperlipidemia, PAD with endovascular stent and femoral artery aneurysm, post angioplasty, bypass due to blue toe syndrome, chronic ischemia bilateral lower limbs who was most recently in our hospital in November 2023 when he was transferred to a tertiary center when he was found to have pulmonary hemorrhage on bronchoscopy. Asked with the daughter who is at bedside on subsequent transfer he underwent coiling of the pulmonary artery. After the same he had complications with his old right leg graft and underwent AKA 1 month ago at [place]. Patient has currently been under rehabitation at [facility]. He was sent in today because of worsening difficulty in breathing over last few days. As per the patient his breathing has been getting worse over last few weeks but acutely got worse today morning hence was sent into the ER. He is baseline on 3 L of oxygen supplementation but currently requiring up to 6 L to maintain saturation over 90%. Patient is complaining of cough with expectoration, no fever, denies any sick contacts. Denies any chest pain. As per daughter his swelling in the left leg has been increasing for last few weeks. Review of Systems General: Reports: 10 or more systems reviewed and unremarkable except in HPI and below Const: Denies: fever(s), chills, body aches, change in appetite, change in weight, malaise, night sweats, diaphoresis, change in sleep pattern, daytime sleepiness or snoring Eyes: Denies: change in vision, blurry vision, photophobia, eye discomfort or eye discharge ENMT: Denies: throat pain, enlarged tonsils, hoarseness, mouth pain, oral sores, dry mouth, tinnitus, nasal congestion or post nasal drip Card: Denies: chest pain, palpitations, irregular heart rhythm, edema, swelling of feet/ankles, lightheadedness, syncope, pre-syncope, dyspnea on exertion, orthopnea, leg pain with exertion or acrocyanosis Resp: Denies: dyspnea, productive cough, non-productive cough, wheezing, stridor, pain on inspiration, change in phlegm color, hemoptysis or chest congestion GI: Denies: abdominal pain, nausea, vomiting, hematemesis, coffee ground emesis, dysphagia, heartburn, diarrhea, constipation, bloating, GI cramping, change in bowel habits, pain on defecation, hematochezia or melena : Denies: flank pain, difficulty urinating, dysuria, urinary frequency, urinary urgency, urinary hesitancy, urinary dribbling, difficulty starting urination, change in urine stream, nocturia or hematuria Musc: Denies: neck pain, back pain, extremity pain, joint pain, joint swelling, joint redness, joint stiffness or limited range of motion Neuro: Denies: headache(s), numbness in extremities, weakness in extremities, sensory changes, lack of coordination, difficulty walking, frequent falls, dizziness, vertigo, confusion, Slurred speech present, difficulty communicating thoughts or seizure-like activity Psych: Denies: anxiety, depression, mood swings, panic attacks, hopelessness or irritability Endo: Denies: polyuria, polydipsia, tired all the time, cold intolerance, excessive sweating, flushing or heat intolerance Alpesh/Lymph: Denies: easy bruising or easy bleeding All/Imm: Denies: tongue swelling, facial swelling or acute wheezing Medications/Allergies Home Medications Medication Instructions Recorded Confirmed Last Taken Type albuterol sulfate 90 mcg/actuation 1 inh inhalation QID PRN Shortness 10/09/20 05/24/24 05/20/24 12:25 History aerosol inhaler (ProAir HFA) Of Breath albuterol sulfate 2.5 mg/3 mL 2.5 mg (3 mL) inhalation Q4H PRN 10/31/23 05/24/24 05/22/24 08:33 Rx (0.083 %) solution for nebulization shortness of breath or wheezing #360 mL guaifenesin 400 mg tablet 400 mg PO QID PRN cough #120 tabs 10/31/23 05/24/24 05/23/24 05:05 Rx acetaminophen 325 mg tablet 650 mg PO QID PRN Pain 05/24/24 05/24/24 05/10/24 19:09 History alprazolam 0.5 mg tablet 0.5 mg PO TID PRN Anxiety 05/24/24 05/24/24 05/24/24 08:30 History amoxicillin 875 mg-potassium 1 tab PO BID 05/24/24 05/24/24 05/21/24 18:49 History clavulanate 125 mg tablet aspirin 81 mg tablet 81 mg PO DAILY 05/24/24 05/24/24 05/24/24 08:31 History bisacodyl 10 mg rectal suppository 10 mg CA DAILY PRN Constipation 05/24/24 05/24/24 Unknown History (Dulcolax (bisacodyl)) bisacodyl 5 mg tablet,delayed 10 mg PO DAILY PRN Constipation 05/24/24 05/24/24 Unknown History release (Dulcolax (bisacodyl)) budesonide 0.5 mg/2 mL suspension 0.5 mg inhalation Q4H PRN 05/24/24 05/24/24 05/23/24 18:00 History for nebulization Shortness Of Breath cholecalciferol (vitamin D3) 25 100 mcg PO DAILY 05/24/24 05/24/24 05/24/24 08:31 History mcg (1,000 unit) tablet escitalopram oxalate 10 mg tablet 10 mg PO DAILY 05/24/24 05/24/24 05/24/24 08:31 History furosemide 20 mg tablet (Lasix) 20 mg PO BID 05/24/24 05/24/24 05/24/24 14:50 History guaifenesin 600 mg tablet, 600 mg PO BID 05/24/24 05/24/24 05/24/24 08:31 History extended release 12 hr hydrocodone 10 mg-acetaminophen 1 tab PO Q4H PRN Pain 05/24/24 05/24/24 05/24/24 20:30 History 325 mg tablet hyoscyamine sulfate 0.125 mg tablet 0.125 mg PO Q4H PRN Secretions 05/24/24 05/24/24 05/23/24 18:00 History ipratropium 0.5 mg-albuterol 3 mg 3 ml inhalation Q6H PRN Shortness 05/24/24 05/24/24 Unknown History (2.5 mg base)/3 mL nebulization Of Breath soln levalbuterol tartrate 45 2 inh inhalation Q6H PRN Shortness 05/24/24 05/24/24 Unknown History mcg/actuation aerosol inhaler Of Breath levetiracetam 1,000 mg tablet 1,000 mg PO BID 05/24/24 05/24/24 05/24/24 08:31 History magnesium hydroxide 400 mg/5 mL 30 ml PO Q3D PRN Constipation 05/24/24 05/24/24 Unknown History oral suspension (Milk of Magnesia) menthol 0.44 %-zinc oxide 20.6 % 1 applic topical TID 05/24/24 05/24/24 05/23/24 19:14 History topical ointment (Calmoseptine) metoprolol tartrate 50 mg tablet 50 mg PO BID 05/24/24 05/24/24 05/24/24 08:31 History morphine concentrate 20 mg/mL oral 10 mg sublingual Q2H PRN Severe 05/24/24 05/24/24 05/23/24 18:03 History syringe (FOR ORAL USE ONLY) Pain (Scale Score 7-10) naloxone 0.4 mg/mL injection 0.4 mg SUBCUT Q3M PRN Opiate 05/24/24 05/24/24 Unknown History solution Reversal nystatin 100,000 unit/gram topical 1 applic topical BID PRN prn 05/24/24 05/24/24 Unknown History cream potassium chloride 10 mEq 10 meq PO DAILY 05/24/24 05/24/24 05/24/24 08:31 History tablet,extended release sennosides 8.6 mg-docusate sodium 2 tab-cap PO BEDTIME 05/24/24 05/24/24 05/23/24 18:28 History 50 mg tablet sodium phosphates 19 gram-7 118 ml CA DAILY PRN Constipation 05/24/24 05/24/24 Unknown History gram/118 mL enema (Fleet Enema) Allergies Allergy/AdvReac Type Severity Reaction Status Date / Time No Known Allergies Allergy Verified 11/05/23 10:30 PFSH Acute PFSH: Medical History (Updated 05/25/24 @ 15:30 by Nelson Gibson MD) CHF (congestive heart failure) Diastolic heart failure Blue toe syndrome of left lower extremity Acute on chronic respiratory failure with hypoxia and hypercapnia Persistent atrial fibrillation DA (obstructive sleep apnea) DNR (do not resuscitate) Healthcare-associated pneumonia Acute anemia Pneumonia Chronic respiratory failure Popliteal thrombosis Pulmonary hypertension Cough Solitary pulmonary nodule on lung CT Ascending aortic aneurysm Peripheral arterial disease Benign essential HTN Iliac artery aneurysm, bilateral Hx of seizure disorder Depression Dyspnea on exertion Popliteal artery aneurysm Spinal stenosis Tinnitus Sleep apnea in adult A-fib COPD (chronic obstructive pulmonary disease) Surgical History (Updated 05/25/24 @ 15:30 by Nelson Gibson MD) S/P AKA (above knee amputation) H/O endovascular stent graft for abdominal aortic aneurysm History of PTCA S/P hernia repair incisional History of vascular surgery rt and left leg 2019 History of colonoscopy with polypectomy 2018 History of AAA (abdominal aortic aneurysm) repair 2010 History of left inguinal hernia repair 2016 Family History Mother Cancer Diabetes Father CAD (coronary artery disease) Cancer Chronic kidney disease (CKD) Diabetes Brother No problems noted. Sister No problems noted. Grandfather Lung disease Denies family history of Clotting disorder Dementia Suicide Anesthesia complication Bleeding disorder Stroke Social History Smoking and tobacco/nicotine status: former use of tobacco/nicotine Quit status (tobacco/nicotine): has quit using Year quit tobacco: May 2021 Former quit date comment: 2ppd X 50 Alcohol intake: never Substance/Drug Use: never Vitals/I&O/Wt Last Vital Signs Temp 98.2 F 05/24/24 16:38 Pulse 114 H 05/24/24 19:57 Resp 22 H 05/24/24 19:51 BP 146/98 05/24/24 18:51 Pulse Ox 93 05/24/24 19:49 O2 Del Method Nasal Cannula 05/24/24 19:49 O2 Flow Rate 5 05/24/24 19:49 Weight last 48 hrs Weight 88.451 kg Physical Exam Narrative: General: In mild distress because shortness of breath, on 6 L oxygen supplementation, AOx3, chronically sick appearing, mildly diaphoretic HEENT: PERRLA, pupils bilaterally equal and reactive Chest: Bilateral bronchial breath sounds all over lung anderson with occasional rhonchi, crackles mostly in lower zone right more than left CVS: S1-S2 regular, no murmurs, no tachycardia, no gallops, no rubs Abdomen: Soft, nontender, no organomegaly, bowel sounds present Neuro: No focal deficits, no facial deformity, AO x3, Extremity: Right AKA left leg swollen, mildly cyanotic with chronic ischemic changes Quick SOFA Score: Respiratory Rate: 27 Blood Pressure: 134/94 Morton Coma Scale: 15 qSOFA Score: 1 If qSOFA score 2 or greater, continue: PaO2/FiO2 Ratio (mmHg): 160 Blood Pressure Mean: 84 Bilirubin (mg/dl): 0.6 Platelets (x10?/ml): 233 Creatinine (mg/dl): 0.5 SOFA Score: 3 Evaluation: Current stage of sepsis: sepsis Sepsis stage criteria used: [facility] Sep-1 and Sepsis-3 Crystalloid fluids: no fluids ordered Reasons: heart failure Blood cultures ordered: Yes Possible source: pulmonary Focused Exam: Vital signs: Temp Pulse Resp BP Pulse Ox O2 Del Method O2 Flow Rate 05/25/24 13:34 68 18 91 Nasal Cannula 4 05/25/24 11:36 97.5 F L 77 18 113/70 90 Nasal Cannula 4 05/25/24 08:00 71 14 96 Nasal Cannula 5 05/25/24 07:46 97.5 F L 65 15 116/72 91 Nasal Cannula 6 05/25/24 06:00 67 05/25/24 04:00 97.9 F 84 18 126/85 93 Nasal Cannula 5 Date exam was performed: 05/25/24 Time exam was performed: 15:38 Sepsis Screen No Definite Risk 05/24/24 18:51 Respiratory Rate 18 breaths/min (12 - 18) 05/25/24 13:34 Blood Pressure 113/70 mmHg 05/25/24 11:36 Morton Coma Scale Score 15 05/24/24 23:52 Quick SOFA Score 1 05/24/24 18:51 SOFA Score: ABG PO2/FiO2 Ratio 160 05/24/24 17:53 Morton Coma Scale Score 15 05/24/24 23:52 Blood Pressure Mean 84 mmHg 05/25/24 11:36 Total Bilirubin 0.6 mg/dL (0.15-1.2) 05/25/24 02:08 Platelet Count 233 10^3/cmm (157-399) 05/25/24 02:08 Creatinine 0.5 mg/dL (0.7-1.2) L 05/25/24 02:08 Data 05/25/24 02:08 05/25/24 02:08 A&P Assessment and plan (1) Acute on chronic respiratory failure with hypoxia and hypercapnia: (2) Acute exacerbation of chronic obstructive airways disease: (3) CHF (congestive heart failure): (4) Swelling of lower limb: (5) Elevated d-dimer: (6) Blue toe syndrome of left lower extremity: (7) Persistent atrial fibrillation: (8) DA (obstructive sleep apnea): (9) S/P AKA (above knee amputation): Plan 73-year-old gentleman with past history of COPD, diastolic heart failure, A-fib, recent history of pulmonary hemorrhage post coiling, right AKA, left blue toe syndrome presents to the ER from [facility] because of worsening respiratory status Acute on chronic hypoxic and hypercapnic respiratory failure: Appreciate ABG and admission. Most likely in setting of COPD exacerbation. With mild component of congestive heart failure. Patient also has history of obstructive sleep apnea. Elevated D-dimer to more than 11. Check sputum culture, urine Legionella, bacterial antigen, blood culture, procal, respiratory viral panel. Check CTA. Patient does have mild leukocytosis. At high risk of pneumonia. For now start on treatment with oral azithromycin and IV ceftriaxone. Solu-Medrol 125 mg stat followed by 40 mg every 6 hours. Pulmicort twice daily, ipratropium, Xopenex every 6 hours. Will de-escalate steroids within next 24 to 48 hours. Oxygen supplementation keeping saturation over 80 to 90%. Last echocardiogram from October 2023 showed a normal EF, but moderate biatrial enlargement, trace TR, no pericardial effusion. Patient does have significant lower limb swelling. IV Lasix 40 mg daily. Strict input charting, daily weights. Hurd catheterization. Fluid restriction to less than 1500 cc. Lower limb swelling: Does have history of blue toe syndrome. With elevated D-dimer concern for DVT. Patient also history of peripheral arterial disease. Continue with home dose of aspirin, statin. Check duplex arterial and venous study. Persistent A-fib: Continue with home dose of amiodarone. Continue other home medications including Lexapro, hydrocodone, Keppra. CODE STATUS: Discussed interval with the patient and daughter at bedside. Daughter be DPOA. DNR/DNI. Cardiac diet PUD prophylaxis Heparin 5000 every 12 hourly for DVT prophylaxis Attestations Medical Necessity Statement*: Admission for more than 2 midnights for management of acute on chronic hypoxic and hypercapnic respiratory failure in setting of COPD exacerbation, CHF while PE is ruled out, left lower limb swelling in setting of history of PAD while DVT is ruled out Diagnoses Acute on chronic respiratory failure with hypoxia and hypercapnia J96.21; J96.22 Acute exacerbation of chronic obstructive airways disease J44.1 CHF (congestive heart failure) I50.9 Swelling of lower limb M79.89 Elevated d-dimer R79.89 Blue toe syndrome of left lower extremity I75.022 Persistent atrial fibrillation I48.19 DA (obstructive sleep apnea) G47.33 S/P AKA (above knee amputation) Z89.619
[2024-05-24] MEDS: iohexol 350 mg/mL 500 mL Btl (per mL) IV (20:32)
[2024-05-24 20:55] LABS: Iron 39 ug/dL (59-158); Total Iron Binding Capacity 299 mcg/dl; Unsaturated Iron Binding 260 ug/dL (112-347)
[2024-05-24 21:12] LABS: Vitamin B12 474 pg/mL (232-1245)
[2024-05-24] MEDS: azithromycin 250 mg Tablet 500 MG PO (22:09)
[2024-05-24] MEDS: heparin 5,000 unit/mL INJ 1 mL 5000 UNIT SUBCUT (22:11)
[2024-05-25] VITALS (15 sets, daily range): BP systolic 107–134; BP diastolic 67–94; PULSE 65–108; RESP 14–20; TEMP 36.4–36.9; O2SAT 90–96; BMI 29.7
[2024-05-25] MEDS: methylPREDNISolone sod succ 40 mg/mL INJ IVP ×5 (00:18→23:57)
[2024-05-25] MEDS: levalbuterol 0.63 mg/3 mL Neb INHALATION ×4 (02:13→19:55)
[2024-05-25 02:22] LABS: Basophils % 0.1 %; Eosinophils % 0.3 %; Lymphocytes # 0.2 10^3/uL (0.8-4.8); Mean Corpuscular HGB Conc 30.6 g/dL (30-55); Mean Corpuscular Hemoglobin 27.6 pg (27-33); Mean Corpuscular Volume 90.4 fl (82-101); Monocytes % 0.4 %; Neutrophils # 7.29 10^3/uL (1.8-7.7); Neutrophils % 95.8 %; Nucleated Red Blood Cells % 0 %; Platelet Count 233 10^3/cmm (157-399); Red Blood Count 3.87 10^6/uL (3.85-5.65); Red Cell Distribution Width 16.3 % (12.1-15.1); White Blood Count 7.61 10^3/uL (3.29-11.43)
[2024-05-25 02:30] LABS: Adenovirus Not Detected (NOT DETECT); Chlamydia Pneumoniae Not Detected (NOT DETECT); Coronavirus 229E,HKU1,NL63,OC4 Not Detected (NOT DETECT); Human Metapneumovirus Not Detected (NOT DETECT); Human Rhinovirus/Enterovirus Not Detected (NOT DETECT); Influenza A Not Detected (NOT DETECT); Influenza A H1 Not Detected (NOT DETECT); Influenza A H1-2009 Not Detected (NOT DETECT); Influenza A H3 Not Detected (NOT DETECT); Influenza B Not Detected (NOT DETECT); Mycoplasma Pneumoniae Not Detected (NOT DETECT); Parainfluenza Virus Type 1 Not Detected (NOT DETECT); Parainfluenza Virus Type 2 Not Detected (NOT DETECT); Parainfluenza Virus Type 3 Not Detected (NOT DETECT); Parainfluenza Virus Type 4 Not Detected (NOT DETECT); Respiratory Syncytial Virus A Not Detected (NOT DETECT); Respiratory Syncytial Virus B Not Detected (NOT DETECT); SARS-COV-2 Not Detected (NOT DETECT)
[2024-05-25 02:47] LABS: Alanine Aminotransferase 7 U/L (0-41); Albumin Level 3.9 g/dL (3.5-5.2); Alkaline Phosphatase 78 U/L (40-130); Anion Gap 10.5 (5-19); Aspartate Amino Transferase 14 U/L (0-40); Blood Urea Nitrogen 19 mg/dL (8-23); Calcium 9.4 mg/dL (8.5-10.5); Carbon Dioxide 36 mmol/L (22-29); Chloride 93 mmol/L (98-107); Creatinine Clr Calc Pharmacy 91.9528; Globulin 2.8 g/dL (1.3-4.6); Glucose 183 mg/dL (65-115); Magnesium 1.9 mg/dL (1.7-2.3); Osmolality Calculated 287 mOsm/kg (285-295); Phosphorus 3.2 mg/dL (2.5-4.5); Potassium 4.5 mmol/L (3.5-5.1); Sodium 135 mmol/L (136-145); Total Bilirubin 0.6 mg/dL (0.15-1.2); Total Protein 6.7 g/dL (6.6-8.7)
[2024-05-25 02:59] LABS: Procalcitonin 0.09 ng/mL (0-0.5)
[2024-05-25 03:02] LABS: Folate Level 5.9 ng/mL (4.5-32.2)
[2024-05-25] MEDS: budesonide 0.5 mg/2 mL Neb INHALATION ×2 (07:57→19:55)
[2024-05-25] MEDS: ipratropium 0.5 mg/2.5 mL Neb INHALATION ×3 (07:57→19:55)
[2024-05-25] MEDS: famotidine 20 mg Tablet PO ×2 (08:37→17:19)
[2024-05-25] MEDS: amiodarone 200 mg Tablet PO (08:37)
[2024-05-25] MEDS: levETIRAcetam 500 mg Tablet PO (08:37)
[2024-05-25] MEDS: heparin 5,000 unit/mL INJ 1 mL 5000 UNIT SUBCUT ×2 (08:37→20:19)
[2024-05-25] MEDS: FUROsemide 10 mg/mL SDV 4mL 40 MG IVP (11:19)
[2024-05-25 12:47] LABS: Bilirubin Urine Negative (Negative); Blood Urine 1+ (Negative); Glucose Urine UA Negative (Normal); Ketones Urine Negative (Negative); Leukocyte Esterase Urine 1+ (Negative); Nitrate Urine Negative (Negative); Protein Urine Negative (Negative); Specific Gravity, Urine 1.013 (1.005-1.030); Urine Appearance Clear (CLEAR); Urine Color Yellow (Yellow); pH Urine 6.5 (5-7)
[2024-05-25 12:52] LABS: Add Urine Microscopic? YES; Bacteria Urine None Seen /hpf; Squamous Epithelial Cell Urine 0-5 /hpf (0-5)
[2024-05-25] MEDS: HYDROcodone-acetaminophen 10-325 mg Tablet 1 TAB PO ×2 (15:19→23:57)
--- NOTE | 2024-05-25 15:43 | P.PN_ITS ---
Subjective 2 Subjective: No acute events overnight. Today morning examination patient seems more comfortable. Denies any nausea, vomiting, headache. Somehow only 100 cc of urine charted overnight. Down to full dose of oxygen supplementation. Vitals/I&O/Wt Last Vital Signs Temp 97.5 F L 05/25/24 11:36 Pulse 68 05/25/24 13:34 Resp 18 05/25/24 13:34 BP 113/70 05/25/24 11:36 Pulse Ox 91 05/25/24 13:34 O2 Del Method Nasal Cannula 05/25/24 13:34 O2 Flow Rate 4 05/25/24 13:34 05/25/24 05/25/24 05/25/24 06:59 14:59 22:59 Output Total 100 / 100 1600 / 1600 Balance -100 / -100 -1600 / -1600 Weight last 48 hrs Weight 91.172 kg Weight 91.172 kg Weight 91.58 kg Weight 88.451 kg Physical Exam 2 Narrative: General: In mild distress because shortness of breath, on 6 L oxygen supplementation, AOx3, chronically sick appearing, mildly diaphoretic HEENT: PERRLA, pupils bilaterally equal and reactive Chest: Bilateral bronchial breath sounds all over lung anderson with occasional rhonchi, crackles mostly in lower zone right more than left CVS: S1-S2 regular, no murmurs, no tachycardia, no gallops, no rubs Abdomen: Soft, nontender, no organomegaly, bowel sounds present Neuro: No focal deficits, no facial deformity, AO x3, Extremity: Right AKA left leg swollen, mildly cyanotic with chronic ischemic changes Urinary Catheter Management: Hurd: Cath Placed During This Visit: yes Reason for Continuing Indwelling Catheter: Accurate Measurement of Urinary Output in Critically Ill Patients Urinary Catheter Date of Insertion: 05/24/24 Urinary Catheter Time of Insertion: 23:00 Data 05/25/24 02:08 05/25/24 02:08 Micro: Microbiology 05/24/24 12:30 Bacterial Antigens - Final Urine Kidney 05/24/24 12:30 Legionella Urinary Antigen - Final Unknown Source 05/25/24 02:08 Blood Culture - Preliminary Blood SPECIMEN COLLECTED 05/25/24 02:08 Blood Culture - Preliminary Blood SPECIMEN COLLECTED A&P Assessment and plan (1) Acute on chronic respiratory failure with hypoxia and hypercapnia: (2) Acute exacerbation of chronic obstructive airways disease: (3) Aspiration pneumonia: (4) CHF (congestive heart failure): (5) Swelling of lower limb: (6) Elevated d-dimer: (7) Blue toe syndrome of left lower extremity: (8) Persistent atrial fibrillation: (9) DA (obstructive sleep apnea): (10) S/P AKA (above knee amputation): Plan 73-year-old gentleman with past history of COPD, diastolic heart failure, A-fib, recent history of pulmonary hemorrhage post coiling, right AKA, left blue toe syndrome [facility] because of worsening respiratory status Acute on chronic hypoxic and hypercapnic respiratory failure: Appreciate ABG and admission. Most likely in setting of COPD exacerbation. With mild component of congestive heart failure. Patient also has history of obstructive sleep apnea. Elevated D-dimer to more than 11. Repeat D-dimer in AM. Urine Legionella, bacterial antigen, procalcitonin negative. Respiratory viral panel negative. CTA negative for pulmonary embolism. Concern for bilateral lower lobe endobronchial opacification with concerns for possible aspiration pneumonitis. Speech therapy evaluation. Will plan for modified barium swallow. Leukocytosis resolved. For now continue with oral azithromycin and IV ceftriaxone. Continue with IV Solu-Medrol 40 mg x 6-hour. Will plan to de-escalate within next 24 to 48 hours. Pulmicort twice daily, ipratropium, Xopenex every 6 hours. Oxygen supplementation keeping saturation over 80 to 90%. Wean accordingly. Last echocardiogram from October 2023 showed a normal EF, but moderate biatrial enlargement, trace TR, no pericardial effusion. Patient does have significant lower limb swelling. Continue with IV Lasix 40 mg daily. Strict input and output charting, daily weights. Hurd catheterization. Fluid restriction to less than 1500 cc. Lower limb swelling: Does have history of blue toe syndrome. With elevated D- dimer concern for DVT. Patient also history of peripheral arterial disease. Continue with home dose of aspirin, statin. DVT and acute limb ischemia ruled out. Persistent A-fib: Continue with home dose of amiodarone. Continue other home medications including Lexapro, hydrocodone, Keppra. CODE STATUS: Discussed interval with the patient and daughter at bedside. Daughter be DPOA. DNR/DNI. Cardiac diet Famotidine for PUD prophylaxis Heparin 5000 every 12 hourly for DVT prophylaxis Attestations 2 Medical Necessity Statement*: Requires further hospitalization for management of acute on chronic hypoxic and hypercapnic respiratory failure in setting of COPD and CHF exacerbation, concern for aspiration pneumonitis Diagnoses Acute on chronic respiratory failure with hypoxia and hypercapnia J96.21; J96.22 Acute exacerbation of chronic obstructive airways disease J44.1 Aspiration pneumonia J69.0 CHF (congestive heart failure) I50.9 Swelling of lower limb M79.89 Elevated d-dimer R79.89 Blue toe syndrome of left lower extremity I75.022 Persistent atrial fibrillation I48.19 DA (obstructive sleep apnea) G47.33 S/P AKA (above knee amputation) Z89.619
[2024-05-25 17:08] LABS: ABG PCO2 52.4 mmHg (35-45); ABG PH Result 7.48 (7.35-7.45); Alveolar-Arterial Oxygen Gradi 20.2 mmHg (5-10); Base Excess ABG 13.5 mmol/L (-2.0-2.0); Blood Gas Allen Test Pos; Blood Gas Operator Identificat glc; Blood Gas Sample Site Radial, right; Blood Gas Sample Type Arterial; Carboxyhemoglobin 1.8 %THgb (0.4-20.1); HCO3 ABG 38.8 mmol/L (22-26); HGB O2 Sat 91.2 % (95-100); Ionized Calcium Level - ABG 1.2 mmol/L (1.1-1.4); Oxygen Device NC; Oxygen Saturation ABG 93.8; PO2 ABG 65.4 mmHg (80.0-100.0); PO2 FiO2 Ratio Arterial Blood 163; Potassium Level - ABG 3.6 mmol/L (3.5-5.0); Total Hemoglobin 10.1 g/dL (14-18)
[2024-05-25] MEDS: atorvastatin 40 mg Tablet 80 MG PO (17:18)
[2024-05-25] MEDS: levETIRAcetam 500 mg Tablet 1000 MG PO (17:18)
[2024-05-25] MEDS: ALPRAZolam 0.5 mg Tablet 0.25 MG PO ×2 (17:25→23:59)
--- NOTE | 2024-05-25 18:20 | PC.NURSE ---
Speaks with Ivet, nurse at [facility]. Ivet states that pt is non-compliant with BiPap. She also states that pt was on hospice, discharged from hospice after amputation, and sent to [facility] for therapy. The future plan is to discharge from [facility] back to hospice on 06/09 at home with daughter. Ivet states that the [place] will not pay for pt right stump compression sleeve d/t scabs not being healed. When this nurse assesses pt, he states that he is not sure of his personal medical goals. Pt states that he would like to get stronger, but not participate in therapy. He would like to focus on pain reduction and decreased work of breathing. He is adamant that Bipap not be used, d/t feeling suffocated with the mask on.
--- NOTE | 2024-05-25 20:13 | USR_ITS ---
PROCEDURE INFORMATION: Exam: US Duplex Left Lower Extremity Arteries Or Arterial Bypass Grafts Exam date and time: 05/25/2024 1:08 PM Age: 73 years old Clinical indication: Condition or disease; Peripheral vascular disease; Additional info: Concern for pad TECHNIQUE: Imaging protocol: Left Real-time duplex scan of the arteries or arterial bypass grafts of the left lower extremity with 2-D munguia scale, color Doppler flow and spectral waveform analysis. Images documented and saved. COMPARISON: US CV venous duplex [facility] [id number] 05/25/2024 12:56 PM FINDINGS: No occluded vessels are seen. There is a lobulated hypoechoic focus abutting the common femoral vein which could represent an area of thrombus or an occluded pseudoaneurysm. No flow is seen within this area. PSV in this area is low at 34 cm/sec. It is also low in the visualized iliac artery at 25.7 cm/sec. There is flow in the superficial femoral, popliteal, posterior tibial, and dorsalis pedis arteries but waveforms appear monophasic. Ankle brachial index was normal. 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 No occluded vessels are seen.
--- NOTE | 2024-05-25 20:13 | USR_ITS ---
PROCEDURE INFORMATION: Exam: US Duplex Left Lower Extremity Veins, Limited Exam date and time: 05/25/2024 12:56 PM Age: 73 years old Clinical indication: Swelling (edema) of limb; Lower extremity, left; Additional info: Elevated dimer TECHNIQUE: Imaging protocol: Real-time duplex ultrasound of the left extremity with 2-D munguia scale, color Doppler flow and spectral waveform analysis including responses to compression and other maneuvers (when performed) with image documentation. Limited exam focused on the left lower extremity veins. COMPARISON: CT angio abd aorta [facility] [id number] 08/15/2023 6:38 PM FINDINGS: Left deep veins: Unremarkable. The common femoral, femoral, proximal profunda femoral and popliteal veins are patent without thrombus. Normal Doppler waveforms. Normal compressibility and/or augmentation response. Superficial veins: Greater saphenous vein at the saphenofemoral junction is patent without thrombus. Soft tissues: Edematous changes. US/CV venous duplex [facility] [id number] IMPRESSION: No evidence of deep vein thrombosis.
[2024-05-25] MEDS: cefTRIAXone 1,000 mg SDV 1000 MG IVP (20:18)
[2024-05-25] MEDS: azithromycin 250 mg Tablet 500 MG PO (20:18)
--- NOTE | 2024-05-25 22:32 | PC.NURSE ---
This GLASS FITTER noticed a small amount of wound weepage from the patients leg wound on the bed sheets. This GLASS FITTER offered to do a full bed change while changing the brief on the patient but the patient refused the full bed and only wanted the brief change. A elinor pad was placed on top of a pillow which the patients leg was resting on to prevent any further leakage onto the bed.
[2024-05-26] VITALS (15 sets, daily range): BP systolic 109–127; BP diastolic 59–79; PULSE 66–112; RESP 14–26; TEMP 36.5–36.7; O2SAT 90–97; BMI 28.6
[2024-05-26] MEDS: ipratropium 0.5 mg/2.5 mL Neb INHALATION ×4 (02:57→20:11)
[2024-05-26] MEDS: levalbuterol 0.63 mg/3 mL Neb INHALATION ×4 (02:57→20:11)
[2024-05-26 04:04] LABS: Basophils % 0.1 %; Hematocrit 32.7 % (37-53); Lymphocytes # 0.3 10^3/uL (0.8-4.8); Lymphocytes % 3.3 %; Mean Corpuscular HGB Conc 30.3 g/dL (30-55); Mean Corpuscular Hemoglobin 27.4 pg (27-33); Mean Corpuscular Volume 90.6 fl (82-101); Mean Platelet Volume 10.6 fL (7.4-10.4); Monocytes # 0.2 10^3/uL (0.2-0.9); Monocytes % 1.8 %; Neutrophils # 8.39 10^3/uL (1.8-7.7); Neutrophils % 94.4 %; Nucleated Red Blood Cells % 0 %; Platelet Count 236 10^3/cmm (157-399); Red Blood Count 3.61 10^6/uL (3.85-5.65); Red Cell Distribution Width 16.2 % (12.1-15.1); White Blood Count 8.89 10^3/uL (3.29-11.43)
[2024-05-26 04:21] LABS: D Dimer 8.21 ug/mLFEU (0-0.59)
[2024-05-26 04:27] LABS: Alanine Aminotransferase 8 U/L (0-41); Albumin Level 3.7 g/dL (3.5-5.2); Alkaline Phosphatase 69 U/L (40-130); Anion Gap 10.9 (5-19); Aspartate Amino Transferase 15 U/L (0-40); Blood Urea Nitrogen 18 mg/dL (8-23); Calcium 9.7 mg/dL (8.5-10.5); Carbon Dioxide 36 mmol/L (22-29); Chloride 96 mmol/L (98-107); Creatinine Clr Calc Pharmacy 90.3067; Glucose 141 mg/dL (65-115); Osmolality Calculated 292 mOsm/kg (285-295); Potassium 3.9 mmol/L (3.5-5.1); Sodium 139 mmol/L (136-145); Total Bilirubin 0.7 mg/dL (0.15-1.2); Total Protein 6.7 g/dL (6.6-8.7)
[2024-05-26] MEDS: methylPREDNISolone sod succ 40 mg/mL INJ IVP ×3 (06:25→20:37)
[2024-05-26] MEDS: HYDROcodone-acetaminophen 10-325 mg Tablet 1 TAB PO (08:10)
[2024-05-26] MEDS: amiodarone 200 mg Tablet PO (08:10)
[2024-05-26] MEDS: aspirin 81 mg EC Tablet PO (08:11)
[2024-05-26] MEDS: escitalopram 10 mg Tablet PO (08:11)
[2024-05-26] MEDS: levETIRAcetam 500 mg Tablet 1000 MG PO ×2 (08:11→17:26)
[2024-05-26] MEDS: famotidine 20 mg Tablet PO ×2 (08:11→17:26)
[2024-05-26] MEDS: heparin 5,000 unit/mL INJ 1 mL 5000 UNIT SUBCUT ×2 (08:11→20:38)
[2024-05-26] MEDS: budesonide 0.5 mg/2 mL Neb INHALATION ×2 (08:12→20:11)
[2024-05-26] MEDS: FUROsemide 10 mg/mL SDV 4mL 40 MG IVP (11:17)
--- NOTE | 2024-05-26 14:29 | P.PN_ITS ---
Subjective 2 Subjective: Prophylaxis overnight. Patient has remained hemodynamically stable and afebrile. Today morning he is on 6 L of oxygen supplementation. Urine output appreciated. More awake and alert today. Complaining of mild difficulty in breathing. Vitals/I&O/Wt Last Vital Signs Temp 97.7 F 05/26/24 07:41 Pulse 83 05/26/24 11:09 Resp 26 H 05/26/24 08:00 BP 125/73 05/26/24 11:09 Pulse Ox 90 05/26/24 11:09 O2 Del Method Nasal Cannula 05/26/24 11:09 O2 Flow Rate 6 05/26/24 11:09 05/25/24 05/26/24 05/26/24 22:59 06:59 14:59 Intake Total 240 / 240 240 / 480 240 / 240 Output Total 600 / 2200 350 / 2550 1000 / 1000 Balance -360 / -1960 -110 / -2070 -760 / -760 Weight last 48 hrs Weight 87.997 kg Weight 88.042 kg Weight 91.172 kg Weight 91.172 kg Weight 91.58 kg Weight 88.451 kg Physical Exam 2 Narrative: General: In mild distress because shortness of breath, on 6 L oxygen supplementation, AOx3, chronically sick appearing, mildly diaphoretic HEENT: PERRLA, pupils bilaterally equal and reactive Chest: Bilateral bronchial breath sounds all over lung anderson with occasional rhonchi, crackles mostly in lower zone right more than left CVS: S1-S2 regular, no murmurs, no tachycardia, no gallops, no rubs Abdomen: Soft, nontender, no organomegaly, bowel sounds present Neuro: No focal deficits, no facial deformity, AO x3, Extremity: Right AKA left leg swollen, mildly cyanotic with chronic ischemic changes Urinary Catheter Management: Hurd: Cath Placed During This Visit: yes Reason for Continuing Indwelling Catheter: Other Urinary Catheter Date of Insertion: 05/24/24 Urinary Catheter Time of Insertion: 23:00 Data 05/26/24 03:11 05/26/24 03:11 Micro: Microbiology 05/25/24 02:08 Blood Culture - Preliminary Blood NEGATIVE TO DATE 05/25/24 02:08 Blood Culture - Preliminary Blood NEGATIVE TO DATE 05/24/24 12:30 Bacterial Antigens - Final Urine Kidney 05/24/24 12:30 Legionella Urinary Antigen - Final Unknown Source A&P Assessment and plan (1) Acute on chronic respiratory failure with hypoxia and hypercapnia: (2) Acute exacerbation of chronic obstructive airways disease: (3) Aspiration pneumonia: (4) CHF (congestive heart failure): (5) Swelling of lower limb: (6) Elevated d-dimer: (7) Blue toe syndrome of left lower extremity: (8) Persistent atrial fibrillation: (9) DA (obstructive sleep apnea): (10) S/P AKA (above knee amputation): (11) Goals of care, counseling/discussion: Plan 73-year-old gentleman with past history of COPD, diastolic heart failure, A-fib, recent history of pulmonary hemorrhage post coiling, right AKA, left blue toe syndrome presents to the ER from custodial because of worsening respiratory status Acute on chronic hypoxic and hypercapnic respiratory failure: Appreciate ABG and admission. Most likely in setting of COPD exacerbation. With mild component of congestive heart failure. Patient also has history of obstructive sleep apnea. Elevated D-dimer to more than 11. Repeat D-dimer in AM. Urine Legionella, bacterial antigen, procalcitonin negative. Respiratory viral panel negative. CTA negative for pulmonary embolism. Concern for bilateral lower lobe endobronchial opacification with concerns for possible aspiration pneumonitis. Speech therapy evaluation. Will plan for modified barium swallow. Leukocytosis resolved. For now continue with oral azithromycin and IV ceftriaxone. Continue with IV Solu-Medrol 40 mg x 6-hour. Will plan to de-escalate within next 24 to 48 hours. Pulmicort twice daily, ipratropium, Xopenex every 6 hours. Oxygen supplementation keeping saturation over 80 to 90%. Wean accordingly. Last echocardiogram from October 2023 showed a normal EF, but moderate biatrial enlargement, trace TR, no pericardial effusion. Patient does have significant lower limb swelling. Continue with IV Lasix 40 mg daily. Strict input and output charting, daily weights. Hurd catheterization. Fluid restriction to less than 1500 cc. Lower limb swelling: Does have history of blue toe syndrome. With elevated D- dimer concern for DVT. Patient also history of peripheral arterial disease. Continue with home dose of aspirin, statin. DVT and acute limb ischemia ruled out. Persistent A-fib: Continue with home dose of amiodarone. Continue other home medications including Lexapro, hydrocodone, Keppra. CODE STATUS: Discussed interval with the patient and daughter at bedside. Daughter be DPOA. DNR/DNI. Cardiac diet Famotidine for PUD prophylaxis Heparin 5000 every 12 hourly for DVT prophylaxis Plan for the day: Follow-up with speech evaluation. MRSA swab negative. Follow-up blood cultures. Sputum culture not collected. Continue with IV ceftriaxone and oral azithromycin for now. For now switch diet to dysphagia level 5 with thickened liquids. Modified barium swallow in a.m. or when available. Change nebulization to every 4 hours. BiPAP nightly. Patient is agreeable. He states he uses nasal mask and he is able to. Discussed in detail with [facility]. As per them patient is noncompliant with physical therapy and BiPAP. Continue with IV Lasix 40 mg daily. Wean Solu-Medrol to 40 mg Q8 hourly. D-dimer trending down. On admission elevated most likely as inflammatory marker. Goals of care discussion: Discussed in detail with patient at bedside. As per the custodial it seems patient was on hospice prior to admission and was being transition back to hospice at home on June 09. Patient states that he was on hospice prior to [facility] but he still deciding about hospice on discharge for now. He states he wants to pursue treatment on and off for difficulty in breathing when possible and with hospice he will not be able to get the same hence he is thinking more. He really wants to remain DNR/DNI for now. He is agreeable and is okay with the current line of treatment. Will confirm further with patient's daughter. Attestations 2 Medical Necessity Statement*: Requires further hospitalization for management of acute on chronic hypoxic and hypercapnic respiratory failure in setting of COPD exacerbation, CHF with concerns for aspiration pneumonia in a patient with history of recent right AKA, chronic blue toe syndrome of left leg Diagnoses Acute on chronic respiratory failure with hypoxia and hypercapnia J96.21; J96.22 Acute exacerbation of chronic obstructive airways disease J44.1 Aspiration pneumonia J69.0 CHF (congestive heart failure) I50.9 Swelling of lower limb M79.89 Elevated d-dimer R79.89 Blue toe syndrome of left lower extremity I75.022 Persistent atrial fibrillation I48.19 DA (obstructive sleep apnea) G47.33 S/P AKA (above knee amputation) Z89.619 Goals of care, counseling/discussion Z71.89
[2024-05-26] MEDS: atorvastatin 40 mg Tablet 80 MG PO (17:26)
[2024-05-26] MEDS: cefTRIAXone 1,000 mg SDV 1000 MG IVP (20:38)
[2024-05-26] MEDS: azithromycin 250 mg Tablet 500 MG PO (20:40)
[2024-05-27] VITALS (16 sets, daily range): BP systolic 109–144; BP diastolic 53–91; PULSE 59–97; RESP 16–20; TEMP 36.4–37; O2SAT 90–98; BMI 29.0
[2024-05-27] MEDS: ALPRAZolam 0.5 mg Tablet 0.25 MG PO ×3 (02:13→19:37)
[2024-05-27] MEDS: ipratropium 0.5 mg/2.5 mL Neb INHALATION ×4 (02:26→19:53)
[2024-05-27] MEDS: levalbuterol 0.63 mg/3 mL Neb INHALATION ×4 (02:26→19:53)
[2024-05-27] MEDS: methylPREDNISolone sod succ 40 mg/mL INJ IVP ×3 (03:57→19:37)
[2024-05-27 05:36] LABS: Hematocrit 33.9 % (37-53); Lymphocytes # 0.3 10^3/uL (0.8-4.8); Lymphocytes % 3.5 %; Mean Corpuscular HGB Conc 29.8 g/dL (30-55); Mean Corpuscular Hemoglobin 26.6 pg (27-33); Mean Corpuscular Volume 89.4 fl (82-101); Mean Platelet Volume 10.8 fL (7.4-10.4); Monocytes # 0.4 10^3/uL (0.2-0.9); Monocytes % 4.7 %; Neutrophils # 7.06 10^3/uL (1.8-7.7); Neutrophils % 91.3 %; Nucleated Red Blood Cells % 0 %; Platelet Count 239 10^3/cmm (157-399); Red Blood Count 3.79 10^6/uL (3.85-5.65); Red Cell Distribution Width 16.4 % (12.1-15.1); White Blood Count 7.73 10^3/uL (3.29-11.43)
[2024-05-27 05:47] LABS: Alanine Aminotransferase 11 U/L (0-41); Albumin Level 3.7 g/dL (3.5-5.2); Alkaline Phosphatase 69 U/L (40-130); Anion Gap 11.6 (5-19); Aspartate Amino Transferase 16 U/L (0-40); Blood Urea Nitrogen 25 mg/dL (8-23); Calcium 9.7 mg/dL (8.5-10.5); Carbon Dioxide 36 mmol/L (22-29); Chloride 95 mmol/L (98-107); Creatinine Clr Calc Pharmacy 90.2858; Globulin 2.8 g/dL (1.3-4.6); Glucose 128 mg/dL (65-115); Osmolality Calculated 294 mOsm/kg (285-295); Potassium 3.6 mmol/L (3.5-5.1); Sodium 139 mmol/L (136-145); Total Bilirubin 0.7 mg/dL (0.15-1.2); Total Protein 6.5 g/dL (6.6-8.7)
[2024-05-27] MEDS: budesonide 0.5 mg/2 mL Neb INHALATION ×2 (07:28→19:53)
--- NOTE | 2024-05-27 09:00 | FL_ITS ---
WS: [id number] Exam: FL barium swallow modifd 17770 Date/Time of Exam: 05/27/2024 9:00 AM Reason For Exam: Oropharyngeal dysphagia Fluoroscopy time: 2min [id number] minutes # of spot films: 0 Modified barium swallow study was performed in conjunction with the speech therapy service. Oral pharyngeal phase of swallowing was normal. The patient ingested all consistencies of barium mixt ure foodstuffs without aspiration or penetration. There was some pooling of pudding consistency foods tuffs in the vallecula. The patient ingested a barium tablet without complication. FL/FL barium swallow modifd 11771 IMPRESSION: 1. No penetration or aspiration identified.
--- NOTE | 2024-05-27 09:15 | PC.CHAP ---
Pastoral Care Encounter/Spiritual Assessment Type of Contact [] Declined networks computer consultant visit [] Patient/Family/Request visit [] Outpatient visit [] Follow-up visit [] Physician referral [] Code/Alert [x] Routine visit [] Staff referral [] Actively dying [x] Patient sleeping [] Family support [] [] Out of room [] Palliative care [] [] Receiving care in room [] Pre-surgical visit [] Trauma [] Long length of stay [] ICU visit [] Other: Relational/Emotional Strength [] Patient feels connected with others/family/visitors/staff [] Distress [] Loneliness/isolation [] Abandonment Spirituality of Patient [] Person of Jessie [] Attends Cheondoism of their Jessie [] Believes in Prayer [] Reads Bible or Jewish materials [] There are Spiritual issues to be addressed Clinical Data Specialist Interventions [] Prayer [] Active listening [] Non-anxious presence [] Spiritual/emotional support [] Crisis/trauma care [] Spiritual counseling [] Bereavement support [] Provided bereavement packet [] Provided Bible/devotional materials [] Provided toy/stuffed animal, coloring book to patient or family member [] Provided Communion [] Anointing/[place] [] Salvation [] Completed spiritual assessment [] Other: Impact on Illness or Injury [] Angry [] Fearful [] Anxious [] Often cries [] Exhaustion [] Unable to work [] Unable to attend shinto [] Unable to walk/stand [] Unable to read [] Unable to drive [] Unable to eat/drink [] Unable to sleep [] Unable to be with family [] Patient intubated [] Other: Summary Time spent with patient
[2024-05-27] MEDS: HYDROcodone-acetaminophen 10-325 mg Tablet 1 TAB PO (10:40)
[2024-05-27] MEDS: levETIRAcetam 500 mg Tablet 1000 MG PO ×2 (10:41→16:42)
[2024-05-27] MEDS: escitalopram 10 mg Tablet PO (10:41)
[2024-05-27] MEDS: famotidine 20 mg Tablet PO ×2 (10:41→16:43)
[2024-05-27] MEDS: heparin 5,000 unit/mL INJ 1 mL 5000 UNIT SUBCUT ×2 (10:41→20:59)
[2024-05-27] MEDS: amiodarone 200 mg Tablet PO (10:41)
[2024-05-27] MEDS: aspirin 81 mg EC Tablet PO (10:41)
--- NOTE | 2024-05-27 12:40 | PC.SOCIAL ---
IMM updated IMM dated and initialed, copy placed in chart and copy given to patient
--- NOTE | 2024-05-27 14:02 | PC.PT ---
PT eval attempted in AM. Patient was at Modified Barium Swallow. Eval then withheld secondary to patient transitioning back to hospice care and to return to SNF.
[2024-05-27] MEDS: atorvastatin 40 mg Tablet 80 MG PO (16:43)
--- NOTE | 2024-05-27 17:26 | PC.NURSE ---
Dr. Coleman orders regular diet based on pt preference because he is on Hospice at this time.
--- NOTE | 2024-05-27 19:15 | PM.PN ---
Subjective Subjective: She has been needing BiPAP with sleep. Vitals/I&O/Wt Last Vital Signs Temp 97.7 F 05/27/24 15:19 Pulse 74 05/27/24 15:19 Resp 18 05/27/24 15:19 BP 144/83 05/27/24 15:19 Pulse Ox 97 05/27/24 15:19 O2 Del Method Nasal Cannula 05/27/24 15:19 O2 Flow Rate 5 05/27/24 14:24 FiO2 45 05/27/24 07:25 05/27/24 05/27/24 05/27/24 06:59 14:59 22:59 Intake Total 360 / 1320 120 / 120 Output Total 500 / 2300 350 / 350 Balance -140 / -980 -230 / -230 Weight last 48 hrs Weight 89.04 kg Weight 89.04 kg Weight 87.997 kg Weight 88.042 kg Physical Exam Narrative: Accompanied by his family including his daughter at bedside. Const: COMMON NORMALS: patient oriented x3 and alert GENERAL APPEARANCE: cooperative ORIENTATION/CONSCIOUSNESS: Yes awake OTHER: Generally weak. HENMT: COMMON NORMALS: oropharynx normal Neck/C-Spine: COMMON NORMALS: no JVD Resp: AUSCULTATION: diminished lung sounds Cardio: COMMON NORMALS: no JVD, regular rhythm, S1 normal heart sound present, S2 normal heart sound present and No murmurs present (Cardio) RHYTHM: regular rhythm HEART SOUNDS: S1 normal heart sound present and S2 normal heart sound present GI: COMMON NORMALS: Normal to inspection, nondistended, normoactive bowel sounds present, Soft to palpation and non-tender PALPATION: Yes Soft to palpation Extremity: COMMON NORMALS: no joint enlargement and no pedal edema Neuro: COMMON NORMALS: patient oriented x3 and moves all extremities SENSORIUM/ORIENTATION: Yes alert Skin: COMMON NORMALS: no rashes or lesions noted GENERAL SKIN EXAM: no rashes or lesions noted Urinary Catheter Management: Hurd: Cath Placed During This Visit: yes Reason for Continuing Indwelling Catheter: Other Urinary Catheter Date of Insertion: 05/24/24 Urinary Catheter Time of Insertion: 23:00 Data 05/27/24 04:28 05/27/24 04:28 Micro: Microbiology 05/27/24 02:35 Gram Stain - Final Sputum - Expectorated Sputum A&P Assessment and plan (1) Acute on chronic respiratory failure with hypoxia and hypercapnia: (2) Acute exacerbation of chronic obstructive airways disease: (3) Aspiration pneumonia: (4) CHF (congestive heart failure): (5) Swelling of lower limb: (6) Elevated d-dimer: (7) Blue toe syndrome of left lower extremity: (8) Persistent atrial fibrillation: (9) DA (obstructive sleep apnea): (10) S/P AKA (above knee amputation): (11) Goals of care, counseling/discussion: Plan 73-year-old gentleman with past history of COPD, diastolic heart failure, A-fib, recent history of pulmonary hemorrhage post coiling, right AKA, left blue toe syndrome presents to the ER from assisted because of worsening respiratory status Acute on chronic hypoxic and hypercapnic respiratory failure: Reviewed vitals, CBC, CMP, MBS, venous duplex. Continue treatment of COPD exacerbation, Solu-Medrol, monitor for risk of hyperglycemia, hypertension, gastritis, encephalopathy, continue ceftriaxone, azithromycin. Has been requiring BiPAP. Reviewed ABGs. Has had CPAP at home which was not adequate for him. Was feeling dyspneic while wearing it. Has been tolerating BiPAP here. With hypercapnia, CPAP alone is not adequate for him long-term. Requesting overnight pulse oximetry. Will benefit from BiPAP after discharge. Continue treatment of CHF exacerbation component. Will reassess volume status for consideration of additional Lasix. Most likely in setting of COPD exacerbation. With mild component of congestive heart failure. Patient also has history of obstructive sleep apnea. Elevated D-dimer to more than 11. Reviewed venous duplex, negative for DVT. 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 Possibly responsible for his D-dimer elevation. Urine Legionella, bacterial antigen, procalcitonin negative. Respiratory viral panel negative. CTA negative for pulmonary embolism. Concern for bilateral lower lobe endobronchial opacification with concerns for possible aspiration pneumonitis. Speech therapy evaluation. MBS obtained, no penetration or aspiration identified. As per discussion with ST diet adjusted. Leukocytosis resolved. For now continue with oral azithromycin and IV ceftriaxone. Continue with IV Solu-Medrol 40 mg x 6-hour. Will plan to de-escalate within next 24 to 48 hours. Pulmicort twice daily, ipratropium, Xopenex every 6 hours. Oxygen supplementation keeping saturation over 80 to 90%. Wean accordingly. Last echocardiogram from October 2023 showed a normal EF, but moderate biatrial enlargement, trace TR, no pericardial effusion. Patient does have significant lower limb swelling. Continue with IV Lasix 40 mg daily. Strict input and output charting, daily weights. Hurd catheterization. Fluid restriction to less than 1500 cc. Lower limb swelling: Does have history of blue toe syndrome. With elevated D-dimer, venous duplex negative for DVT. Patient also history of peripheral arterial disease. 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 Continue with home dose of aspirin, statin. DVT and acute limb ischemia ruled out. Persistent A-fib: Continue with home dose of amiodarone. Continue other home medications including Lexapro, hydrocodone, Keppra. CODE STATUS: Discussed interval with the patient and daughter at bedside. Daughter be DPOA. DNR/DNI. Cardiac diet Famotidine for PUD prophylaxis Heparin 5000 every 12 hourly for DVT prophylaxis Goals of care discussion: As per further discussion of goals of care with patient and his family including his daughter at bedside, proceeding to hospice with destination still being worked out, further discussion of patient and family with case management, he will be returning to assisted at current time with hospice once arrangements are made. Down the line he and family may further consider whether he may go home with hospice versus continue at the nursing facility. Attestations Medical Necessity Statement*: Continue admission for assessment management of COPD exacerbation,, goals of care and post discharge planning and arrangements. and High MDM includes amount and/or complexity of data reviewed/ordered [ resulted lab(s)/test(s), ordered lab(s)/test(s) and other healthcare professional discussion] and described risk of complication, morbidity or mortality of management as documented Diagnoses Acute on chronic respiratory failure with hypoxia and hypercapnia J96.21; J96.22 Acute exacerbation of chronic obstructive airways disease J44.1 Aspiration pneumonia J69.0 CHF (congestive heart failure) I50.9 Swelling of lower limb M79.89 Elevated d-dimer R79.89 Blue toe syndrome of left lower extremity I75.022 Persistent atrial fibrillation I48.19 DA (obstructive sleep apnea) G47.33 S/P AKA (above knee amputation) Z89.619 Goals of care, counseling/discussion Z71.89
[2024-05-27] MEDS: azithromycin 250 mg Tablet 500 MG PO (20:59)
[2024-05-27] MEDS: cefTRIAXone 1,000 mg SDV 1000 MG IVP (20:59)
[2024-05-28] VITALS (15 sets, daily range): BP systolic 112–137; BP diastolic 66–86; PULSE 61–80; RESP 10–22; TEMP 36.4–37; O2SAT 84–99
[2024-05-28] MEDS: ipratropium 0.5 mg/2.5 mL Neb INHALATION ×4 (02:57→21:56)
[2024-05-28] MEDS: levalbuterol 0.63 mg/3 mL Neb INHALATION ×4 (02:57→21:56)
[2024-05-28] MEDS: methylPREDNISolone sod succ 40 mg/mL INJ IVP (03:35)
--- NOTE | 2024-05-28 03:38 | PC.NURSE ---
pt 02 dropped below 85 and got as low as 78, duration 3 minutes before patient body jerked and pt snored aloud and 02 started climbing back up. while pt is on 02 during sleep, o2 ranged from 88-92, when placed on Bipap, 02 sat climbed to 97 and remained there
[2024-05-28 04:09] LABS: Hematocrit 34.5 % (37-53); Lymphocytes # 0.3 10^3/uL (0.8-4.8); Lymphocytes % 4.4 %; Mean Corpuscular HGB Conc 30.4 g/dL (30-55); Mean Corpuscular Hemoglobin 27.3 pg (27-33); Mean Corpuscular Volume 89.8 fl (82-101); Mean Platelet Volume 9.8 fL (7.4-10.4); Monocytes # 0.5 10^3/uL (0.2-0.9); Monocytes % 6.5 %; Neutrophils # 6.18 10^3/uL (1.8-7.7); Neutrophils % 88.7 %; Nucleated Red Blood Cells % 0 %; Platelet Count 196 10^3/cmm (157-399); Red Blood Count 3.84 10^6/uL (3.85-5.65); White Blood Count 6.97 10^3/uL (3.29-11.43)
[2024-05-28 04:33] LABS: Anion Gap 9.6 (5-19); Blood Urea Nitrogen 25 mg/dL (8-23); Calcium 8.6 mg/dL (8.5-10.5); Carbon Dioxide 37 mmol/L (22-29); Chloride 97 mmol/L (98-107); Creatinine Clr Calc Pharmacy 89.2096; Glucose 128 mg/dL (65-115); Osmolality Calculated 296 mOsm/kg (285-295); Potassium 3.6 mmol/L (3.5-5.1); Sodium 140 mmol/L (136-145)
[2024-05-28] MEDS: budesonide 0.5 mg/2 mL Neb INHALATION ×2 (08:35→21:56)
[2024-05-28] MEDS: heparin 5,000 unit/mL INJ 1 mL 5000 UNIT SUBCUT ×2 (08:47→21:24)
[2024-05-28] MEDS: famotidine 20 mg Tablet PO ×2 (08:47→16:32)
[2024-05-28] MEDS: aspirin 81 mg EC Tablet PO (08:47)
[2024-05-28] MEDS: escitalopram 10 mg Tablet PO (08:47)
[2024-05-28] MEDS: amiodarone 200 mg Tablet PO (08:47)
[2024-05-28] MEDS: levETIRAcetam 500 mg Tablet 1000 MG PO ×2 (08:47→16:33)
[2024-05-28] MEDS: HYDROcodone-acetaminophen 10-325 mg Tablet 1 TAB PO ×3 (09:04→21:23)
[2024-05-28] MEDS: ALPRAZolam 0.5 mg Tablet 0.25 MG PO ×2 (09:05→16:32)
--- NOTE | 2024-05-28 09:49 | P.PN_ITS ---
Subjective 2 Subjective: His oxygen saturation dropped orteronel overnight, had to be started on BiPAP. Vitals/I&O/Wt Last Vital Signs Temp 97.5 F L 05/28/24 08:01 Pulse 74 05/28/24 08:01 Resp 17 05/28/24 08:01 BP 130/86 05/28/24 08:01 Pulse Ox 98 05/28/24 08:01 O2 Del Method BiPAP 05/28/24 08:01 O2 Flow Rate 4 05/28/24 02:55 FiO2 40 05/28/24 02:58 05/27/24 05/28/24 05/28/24 22:59 06:59 14:59 Intake Total 360 / 360 120 / 480 120 / 120 Output Total 650 / 650 800 / 1450 Balance -290 / -290 -680 / -970 120 / 120 Weight last 48 hrs Weight 85.684 kg Weight 89.04 kg Weight 89.04 kg Weight 87.997 kg Physical Exam 2 Narrative: Accompanied by his family including his daughter at bedside. Const: COMMON NORMALS: patient oriented x3 and alert GENERAL APPEARANCE: c ooperative ORIENTATION/CONSCIOUSNESS: Yes awake HENMT: COMMON NORMALS: oropharynx normal Neck/C-Spine: COMMON NORMALS: no JVD Resp: AUSCULTATION: diminished lung sounds Cardio: COMMON NORMALS: no JVD, regular rhythm, S1 normal heart sound present, S2 normal heart sound present and No murmurs present (Cardio) RHYTHM: regular rhythm HEART SOUNDS: S1 normal heart sound present and S2 normal heart sound present GI: COMMON NORMALS: Normal to inspection, nondistended, normoactive bowel sounds present, Soft to palpation and non-tender PALPATION: Yes Soft to palpation Extremity: COMMON NORMALS: no joint enlargement and no pedal edema Neuro: COMMON NORMALS: patient oriented x3 and moves all extremities S ENSORIUM/ORIENTATION: Yes alert Skin: COMMON NORMALS: no rashes or lesions noted GENERAL SKIN EXAM: no rashes or lesions noted Urinary Catheter Management: Hurd: Cath Placed During This Visit: yes Reason for Continuing Indwelling Catheter: Acute Urinary Retention or Obstruction Urinary Catheter Date of Insertion: 05/24/24 Urinary Catheter Time of Insertion: 23:00 Data 05/28/24 04:00 05/28/24 04:00 Micro: Microbiology 05/27/24 02:35 Gram Stain - Final Sputum - Expectorated Sputum A&P Assessment and plan (1) Acute on chronic respiratory failure with hypoxia and hypercapnia: (2) Acute exacerbation of chronic obstructive airways disease: (3) Aspiration pneumonia: (4) CHF (congestive heart failure): (5) Swelling of lower limb: (6) Elevated d-dimer: (7) Blue toe syndrome of left lower extremity: (8) Persistent atrial fibrillation: (9) DA (obstructive sleep apnea): (10) S/P AKA (above knee amputation): (11) Goals of care, counseling/discussion: Plan 73-year-old gentleman with past history of COPD, diastolic heart failure, A-fib, recent history of pulmonary hemorrhage post coiling, right AKA, left blue toe syndrome presents to the ER from senior care because of worsening respiratory status. Acute on chronic hypoxic and hypercapnic respiratory failure: Reviewed overnight pulse oximetry study. Elections transient got quite low. Had to be started on BiPAP. Reviewed nursing, RT documentation. Requested BiPAP, discussed with case management social worker. Reviewed vitals, CBC, CMP. Continue treatment of COPD exacerbation, Solu- Medrol, decrease to 20 mg, monitor for risk of hyperglycemia, hypertension, gastritis, encephalopathy, continue ceftriaxone, azithromycin. Has been requiring BiPAP. Has had CPAP at home which was not adequate for him. Was feeling dyspneic while wearing it. Has been tolerating BiPAP here. With hypercapnia, CPAP alone is not adequate for him long-term. Requesting overnight pulse oximetry. Will benefit from BiPAP after discharge. Continue treatment of CHF exacerbation component. Currently in negative balance Most likely in setting of COPD exacerbation. With mild component of congestive heart failure. Patient also has history of obstructive sleep apnea. Elevated D-dimer to more than 11. Reviewed venous duplex, negative for DVT. 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 Possibly responsible for his D-dimer elevation. Urine Legionella, bacterial antigen, procalcitonin negative. Respiratory viral panel negative. CTA negative for pulmonary embolism. Concern for bilateral lower lobe endobronchial opacification with concerns for possible aspiration pneumonitis. Speech therapy evaluation. MBS obtained, no penetration or aspiration identified. As per discussion with ST diet adjusted. Leukocytosis resolved. For now continue with oral azithromycin and IV ceftriaxone. Continue with IV Solu-Medrol. Decrease to 20 mg. Pulmicort twice daily, ipratropium, Xopenex every 6 hours. Oxygen supplementation keeping saturation over 80 to 90%. Wean accordingly. Last echocardiogram from October 2023 showed a normal EF, but moderate biatrial enlargement, trace TR, no pericardial effusion. Patient does have significant lower limb swelling. Continue with IV Lasix 40 mg daily. Strict input and output charting, daily weights. Hurd catheterization. Fluid restriction to less than 1500 cc. Lower limb swelling: Does have history of blue toe syndrome. With elevated D- dimer, venous duplex negative for DVT. Patient also history of peripheral arterial disease. 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 Continue with home dose of aspirin, statin. DVT and acute limb ischemia ruled out. Persistent A-fib: Continue with home dose of amiodarone. Continue other home medications including Lexapro, hydrocodone, Keppra. CODE STATUS: Discussed interval with the patient and daughter at bedside. Daughter be DPOA. DNR/DNI. Cardiac diet Famotidine for PUD prophylaxis Heparin 5000 every 12 hourly for DVT prophylaxis Goals of care discussion: As per further discussion of goals of care with patient and his family including his daughter at bedside, proceeding to hospice with destination still being worked out, further discussion of patient and family with case management, he will be returning to senior care at current time with hospice once arrangements are made. Down the line he and family may further consider whether he may go home with hospice versus continue at the nursing facility. Attestations 2 Medical Necessity Statement*: Continue admission for assessment management of COPD exacerbation, goals of care and post discharge planning and arrangements. and High MDM includes amount and/or complexity of data reviewed/ordered [ resulted lab(s)/test(s) and other healthcare professional discussion] and described risk of complication, morbidity or mortality of management as documented Diagnoses Acute on chronic respiratory failure with hypoxia and hypercapnia J96.21; J96.22 Acute exacerbation of chronic obstructive airways disease J44.1 Aspiration pneumonia J69.0 CHF (congestive heart failure) I50.9 Swelling of lower limb M79.89 Elevated d-dimer R79.89 Blue toe syndrome of left lower extremity I75.022 Persistent atrial fibrillation I48.19 DA (obstructive sleep apnea) G47.33 S/P AKA (above knee amputation) Z89.619 Goals of care, counseling/discussion Z71.89
[2024-05-28] MEDS: methylPREDNISolone sod succ 40 mg/mL INJ 20 MG IVP ×2 (12:32→21:20)
[2024-05-28] MEDS: atorvastatin 40 mg Tablet 80 MG PO (16:32)
[2024-05-28] MEDS: azithromycin 250 mg Tablet 500 MG PO (21:23)
[2024-05-28] MEDS: cefTRIAXone 1,000 mg SDV 1000 MG IVP (21:23)
[2024-05-29] VITALS (11 sets, daily range): BP systolic 122–129; BP diastolic 76–86; PULSE 52–90; RESP 16–18; TEMP 36.4–36.8; O2SAT 94–98
[2024-05-29] MEDS: HYDROcodone-acetaminophen 10-325 mg Tablet 1 TAB PO (02:49)
[2024-05-29] MEDS: levalbuterol 0.63 mg/3 mL Neb INHALATION ×3 (03:17→12:29)
[2024-05-29] MEDS: ipratropium 0.5 mg/2.5 mL Neb INHALATION ×3 (03:17→12:29)
[2024-05-29] MEDS: methylPREDNISolone sod succ 40 mg/mL INJ 20 MG IVP ×2 (04:08→11:34)
[2024-05-29 05:44] LABS: Hematocrit 34.3 % (37-53); Lymphocytes # 0.3 10^3/uL (0.8-4.8); Lymphocytes % 3.4 %; Mean Corpuscular HGB Conc 29.7 g/dL (30-55); Mean Corpuscular Hemoglobin 26.8 pg (27-33); Mean Platelet Volume 10.4 fL (7.4-10.4); Monocytes # 0.5 10^3/uL (0.2-0.9); Monocytes % 5.3 %; Neutrophils # 8.17 10^3/uL (1.8-7.7); Nucleated Red Blood Cells % 0 %; Platelet Count 182 10^3/cmm (157-399); Red Blood Count 3.81 10^6/uL (3.85-5.65); Red Cell Distribution Width 15.4 % (12.1-15.1); White Blood Count 8.99 10^3/uL (3.29-11.43)
[2024-05-29 06:15] LABS: Anion Gap 11.2 (5-19); Blood Urea Nitrogen 31 mg/dL (8-23); Calcium 8.2 mg/dL (8.5-10.5); Carbon Dioxide 34 mmol/L (22-29); Chloride 96 mmol/L (98-107); Glucose 122 mg/dL (65-115); Osmolality Calculated 292 mOsm/kg (285-295); Potassium 4.2 mmol/L (3.5-5.1); Sodium 137 mmol/L (136-145)
[2024-05-29] MEDS: budesonide 0.5 mg/2 mL Neb INHALATION (07:57)
[2024-05-29] MEDS: escitalopram 10 mg Tablet PO (08:27)
[2024-05-29] MEDS: levETIRAcetam 500 mg Tablet 1000 MG PO (08:27)
[2024-05-29] MEDS: amiodarone 200 mg Tablet PO (08:27)
[2024-05-29] MEDS: heparin 5,000 unit/mL INJ 1 mL 5000 UNIT SUBCUT (08:28)
[2024-05-29] MEDS: aspirin 81 mg EC Tablet PO (08:28)
[2024-05-29] MEDS: famotidine 20 mg Tablet PO (08:28)
[2024-05-29 10:24] LABS: SARS Covid-2 Antigen negative (Negative)
--- NOTE | 2024-05-29 11:03 | P.DS_ITS ---
Discharge Providers Date of Admission: 05/24/24 17:59 Date of Discharge: May 29, 2024 Attending Provider at Admission: Nelson Gibson MD Attending Provider at Discharge: Clay Coleman Primary Care Provider: Jackie Kulkarni MD Diagnoses at Discharge Discharge Diagnosis (1) Acute on chronic respiratory failure with hypoxia and hypercapnia: Status: Acute (2) Acute exacerbation of chronic obstructive airways disease: Status: Acute (3) Aspiration pneumonia: Status: Acute (4) CHF (congestive heart failure): Status: Acute Permanent problem details: Diastolic heart failure (5) Swelling of lower limb: Status: Acute (6) Elevated d-dimer: Status: Acute (7) Blue toe syndrome of left lower extremity: Status: Acute (8) Persistent atrial fibrillation: Status: Acute (9) DA (obstructive sleep apnea): Status: Acute (10) S/P AKA (above knee amputation): Status: Acute (11) Goals of care, counseling/discussion: Status: Acute Reason for Visit Reason for Visit: SOB Hospital Course Hospital Course Pleasant 73-year-old gentleman with history of advanced COPD, chronically on 3 to 4 L of oxygen, PAD, HTN, HLD, A-fib, pulmonary hemorrhage status post pulmonary vascular clipping, failure of right leg bypass, status post AKA, was admitted due to respiratory failure with COPD exacerbation as well as CHF exacerbation, possible concomitant aspiration pneumonia. Required increase in oxygen supplementation up to 6 L, received treatment with IV steroids, antibiotic, breathing treatments, Lasix. On presentation with elevated D-dimer, with negative CTA without PE, no DVT on venous duplex, incidentally noted hematoma or occluded pseudoaneurysm in the region of common femoral artery without any occluded vessels, possibly responsible for the D-dimer abnormality. He was seen by speech therapy and underwent MBS with recommendation for adjustment to dysphagia diet to reduce chance of aspiration with level 6 dysphagia diet and aspiration precautions which are recommended to continue, although given his overall wishes he may decide to switch to regular diet based on his goals of care. With finding of hypercapnia, overnight pulse oximetry with significant hypoxia and adequately treated by CPAP, BiPAP is requested for him for use after discharge. His condition overall showed gradual improvement, with improvement in oxygenation, coming down to 3 L nasal cannula. Subjective improvement. Long- term on further consideration of options patient with family choosing to resume hospice care at discharge to nursing facility. Physical Exam Const: COMMON NORMALS: patient oriented x3 and alert GENERAL APPEARANCE: cooperative ORIENTATION/CONSCIOUSNESS: Yes awake HENMT: COMMON NORMALS: oropharynx normal Neck/C-Spine: COMMON NORMALS: no JVD Resp: COMMON NORMALS: normal respiratory effort and clear to auscultation bilaterally EFFORT & INSPECTION: Yes other (Barrel chest) AUSCULTATION: clear to auscultation bilaterally Cardio: COMMON NORMALS: no JVD, regular rhythm, S1 normal heart sound present, S2 normal heart sound present and No murmurs present (Cardio) RHYTHM: regular rhythm HEART SOUNDS: S1 normal heart sound present and S2 normal heart sound present GI: COMMON NORMALS: Normal to inspection, nondistended, normoactive bowel sounds present, Soft to palpation and non-tender PALPATION: Yes Soft to palpation Extremity: COMMON NORMALS: no joint enlargement Neuro: COMMON NORMALS: patient oriented x3 and moves all extremities SENSORIUM/ORIENTATION: Yes alert Skin: COMMON NORMALS: no rashes or lesions noted GENERAL SKIN EXAM: no rashes or lesions noted Urinary Catheter Management: Hurd: Cath Placed During This Visit: yes Reason for Continuing Indwelling Catheter: Other Urinary Catheter Date of Insertion: 05/24/24 Urinary Catheter Time of Insertion: 23:00 Discharge Data Studies Completed and Pending Completed Studies During Hospitalization Category Date Time Status CTA chest [CT angio chest PE protcl [id number]] Stat Cat Scan 05/24/24 20:12 Completed FL barium swallow modifd [id number] Routine Exams 05/27/24 09:00 Completed XR chest 1V portable [id number] Stat Exams 05/24/24 16:43 [place] [id number] Stat Ultrasound 05/25/24 20:13 [place] [id number] Stat Ultrasound 05/25/24 20:13 Completed Pending at discharge Category Date Time Status Basic Metabolic Panel AM LABS Lab 05/30/24 04:00 Ordered Blood Culture Stat Lab 05/24/24 19:28 Results Complete Blood Count w/Auto AM LABS Lab 05/30/24 04:00 Ordered Sputum Culture and Gram Stain Stat Lab 05/27/24 02:35 Results Radiology Impressions Chest X-Ray 05/24/24 16:43 IMPRESSION: No acute findings. Chest CTA 05/24/24 20:12 IMPRESSION: There is no evidence for a pulmonary artery embolus. There is bilateral lower lobe endobronchial opacification consistent with infection and/or aspiration. Bilateral lung consolidation has shown significant improvement when compared with 11/12/2023. Duplex Scan Lower Extremity Artery 05/25/24 20:13 IMPRESSION: Hematoma or occluded pseudoaneurysm in the region of the common femoral artery. No occluded vessels are seen. Venous Duplex 05/25/24 20:13 IMPRESSION: No evidence of deep vein thrombosis. Modified Barium Swallow 05/27/24 09:00 IMPRESSION: 1. No penetration or aspiration identified. Laboratory Results WBC 8.99 10^3/uL (3.29-11.43) 05/29/24 05:32 RBC 3.81 10^6/uL (3.85-5.65) L 05/29/24 05:32 Hgb 10.20 g/dL (11.27-16.99) L 05/29/24 05:32 Hct 34.3 % (37-53) L 05/29/24 05:32 MCV 90.0 fl (82-101) 05/29/24 05:32 MCH 26.8 pg (27-33) L 05/29/24 05:32 MCHC 29.7 g/dL (30-55) L 05/29/24 05:32 RDW 15.4 % (12.1-15.1) H 05/29/24 05:32 Plt Count 182 10^3/cmm (157-399) 05/29/24 05:32 MPV 10.4 fL (7.4-10.4) 05/29/24 05:32 Neut % (Auto) 91.0 % 05/29/24 05:32 Lymph % (Auto) 3.4 % 05/29/24 05:32 [place]berson % (Auto) 5.3 % 05/29/24 05:32 Eos % (Auto) 0.0 % 05/29/24 05:32 Baso % (Auto) 0.0 % 05/29/24 05:32 Neut # (Auto) 8.17 10^3/uL (1.8-7.7) H 05/29/24 05:32 Lymph # (Auto) 0.3 10^3/uL (0.8-4.8) L 05/29/24 05:32 [place]on # (Auto) 0.5 10^3/uL (0.2-0.9) 05/29/24 05:32 Eos # (Auto) 0.0 10^3/uL (0.0-0.8) 05/29/24 05:32 Baso # (Auto) 0.0 10^3/uL (0.0-0.1) 05/29/24 05:32 Nucleated RBC % (auto) 0 % 05/29/24 05:32 Nucleated RBCs # 0.0 /100WBC 05/29/24 05:32 D-Dimer 8.21 ug/mLFEU (0-0.59) H 05/26/24 03:11 Specimen Type Arterial 05/25/24 16:56 Sample Site Radial, right 05/25/24 16:56 ABG pH 7.48 (7.35-7.45) H 05/25/24 16:56 ABG pCO2 52.4 mmHg (35-45) H 05/25/24 16:56 ABG pO2 65.4 mmHg (80.0-100.0) L 05/25/24 16:56 ABG PO2/FiO2 Ratio 163 05/25/24 16:56 ABG HCO3 38.8 mmol/L (22-26) H 05/25/24 16:56 ABG O2 Saturation 93.8 05/25/24 16:56 ABG Base Excess 13.5 mmol/L (-2.0-2.0) H 05/25/24 16:56 Geremias Test Pos 05/25/24 16:56 A-a O2 Gradient 20.2 mmHg (5-10) H 05/25/24 16:56 Hematocrit 31.0 % (42-52) L 05/25/24 16:56 Hgb O2 Saturation 91.2 % (95-100) L 05/25/24 16:56 Carboxyhemoglobin 1.8 %THgb (0.4-20.1) 05/25/24 16:56 Methemoglobin 1.0 % (0.4-1.5) 05/25/24 16:56 Total Hemoglobin 10.1 g/dL (14-18) L 05/25/24 16:56 Sodium 138.0 mmol/L (131-143) 05/25/24 16:56 Potassium 3.6 mmol/L (3.5-5.0) 05/25/24 16:56 Glucose 138.0 mg/dL (70-115) H 05/25/24 16:56 Ionized Calcium 1.2 mmol/L (1.1-1.4) 05/25/24 16:56 O2 Delivery Device Nc 05/25/24 16:56 O2 Liters/Min 5.0 % 05/25/24 16:56 FiO2 40.0 % 05/25/24 16:56 Agricultural Inspector ID glc 05/25/24 16:56 Sodium 137 mmol/L (136-145) 05/29/24 05:32 Potassium 4.2 mmol/L (3.5-5.1) 05/29/24 05:32 Chloride 96 mmol/L (98-107) L 05/29/24 05:32 Carbon Dioxide 34 mmol/L (22-29) H 05/29/24 05:32 Anion Gap 11.2 (5-19) 05/29/24 05:32 BUN 31 mg/dL (8-23) H 05/29/24 05:32 Creatinine 0.4 mg/dL (0.7-1.2) L 05/29/24 05:32 GFR Calculation Not Reportable 05/29/24 05:32 Glucose 122 mg/dL (65-115) H 05/29/24 05:32 Calculated Osmolality 292 mOsm/kg (285-295) 05/29/24 05:32 Lactic Acid 1.6 mmol/L (0.5-2.2) 05/24/24 16:57 Calcium 8.2 mg/dL (8.5-10.5) L 05/29/24 05:32 Phosphorus 3.2 mg/dL (2.5-4.5) 05/25/24 02:08 Magnesium 1.9 mg/dL (1.7-2.3) 05/25/24 02:08 Iron 39 ug/dL (59-158) L 05/24/24 16:57 TIBC 299 mcg/dl 05/24/24 16:57 % Saturation 13.0 % (20-50) L 05/24/24 16:57 Unsat Iron Binding 260 ug/dL (112-347) 05/24/24 16:57 Total Bilirubin 0.7 mg/dL (0.15-1.2) 05/27/24 04:28 AST 16 U/L (0-40) 05/27/24 04:28 ALT 11 U/L (0-41) 05/27/24 04:28 Alkaline Phosphatase 69 U/L (40-130) 05/27/24 04:28 NT-Pro-B Natriuret Pep 1897 pg/mL (0-125) H 05/24/24 16:57 NT-Pro-B Natriuret Pep Cancelled 05/24/24 16:57 Total Protein 6.5 g/dL (6.6-8.7) L 05/27/24 04:28 Albumin 3.7 g/dL (3.5-5.2) 05/27/24 04:28 Globulin 2.8 g/dL (1.3-4.6) 05/27/24 04:28 Vitamin B12 474 pg/mL (232-1245) 05/24/24 16:57 Folate 5.9 ng/mL (4.5-32.2) 05/25/24 02:08 Procalcitonin 0.09 ng/mL (0-0.5) 05/25/24 02:08 Urine Color Yellow (Yellow) 05/25/24 12:30 Urine Appearance Clear (CLEAR) 05/25/24 12:30 Urine pH 6.5 (5-7) 05/25/24 12:30 Ur Specific Ash[place]um 1.013 (1.005-1.030) 05/25/24 12:30 Urine Protein Negative (Negative) 05/25/24 12:30 Urine Glucose (UA) Negative (Normal) 05/25/24 12:30 Urine Ketones Negative (Negative) 05/25/24 12:30 Urine Blood 1+ (Negative) A 05/25/24 12:30 Urine Nitrate Negative (Negative) 05/25/24 12:30 Urine Bilirubin Negative (Negative) 05/25/24 12:30 Urine Urobilinogen 1.0 mg/dL (Negative) 05/25/24 12:30 Ur Leukocyte Esterase 1+ (Negative) A 05/25/24 12:30 Urine RBC 3-5 /hpf (0-2) 05/25/24 12:30 Urine WBC 6-10 /hpf (0-5) 05/25/24 12:30 Ur Squamous Epith Cells 0-5 /hpf (0-5) 05/25/24 12:30 Amorphous Sediment Not Reportable 05/25/24 12:30 Urine Bacteria None seen /hpf (NONE) 05/25/24 12:30 Hyaline Casts 3.30 /lpf 05/25/24 12:30 Adenovirus (PCR) Not detected (NOT DETECT) 05/25/24 00:30 C. pneumoniae DNA (PCR) Not detected (NOT DETECT) 05/25/24 00:30 Coronavirus 229E (PCR) Not detected (NOT DETECT) 05/25/24 00:30 Human Metapneumovir PCR Not detected (NOT DETECT) 05/25/24 00:30 Influenza A (H1) PCR Not detected (NOT DETECT) 05/25/24 00:30 Influ A (H1/09) PCR Not detected (NOT DETECT) 05/25/24 00:30 Influenza A (H3) PCR Not detected (NOT DETECT) 05/25/24 00:30 Influenza Type A (PCR) Not detected (NOT DETECT) 05/25/24 00:30 Influenza Type B (PCR) Not detected (NOT DETECT) 05/25/24 00:30 M. pneumoniae (PCR) Not detected (NOT DETECT) 05/25/24 00:30 Parainfluenza 1 (PCR) Not detected (NOT DETECT) 05/25/24 00:30 Parainfluenza 2 (PCR) Not detected (NOT DETECT) 05/25/24 00:30 Parainfluenza 3 (PCR) Not detected (NOT DETECT) 05/25/24 00:30 Parainfluenza 4 (PCR) Not detected (NOT DETECT) 05/25/24 00:30 RSV Type A (PCR) Not detected (NOT DETECT) 05/25/24 00:30 RSV Type B (PCR) Not detected (NOT DETECT) 05/25/24 00:30 Entero/Rhino (PCR) Not detected (NOT DETECT) 05/25/24 00:30 SARS-CoV-2 (PCR) Not detected (NOT DETECT) 05/25/24 00:30 SARS-CoV-2 Ag (Rapid) negative (Negative) 05/29/24 09:20 Vitals Last Vital Signs Temp 97.5 F L 05/29/24 07:22 Pulse 56 L 05/29/24 07:59 Resp 16 05/29/24 07:59 BP 129/86 05/29/24 07:22 Pulse Ox 98 11/20/24 07:59 O2 Del Method BiPAP 05/29/24 07:59 O2 Flow Rate 4 05/29/24 08:00 FiO2 40 05/29/24 07:59 Discharge Plan Discharge Patient Disposition: Hospice - Medical Facility Condition: Stable Prescriptions: New cefdinir 300 mg capsule 300 mg PO BID 3 Days Qty: 6 0RF azithromycin 500 mg tablet 500 mg PO DAILY 3 Days Qty: 3 0RF prednisone 20 mg tablet 20 mg PO DAILY 3 Days Qty: 3 0RF Continued albuterol sulfate [ProAir HFA] 90 mcg/actuation HFA aerosol inhaler 1 inh inhalation QID PRN (Reason: Shortness Of Breath) guaifenesin 400 mg tablet 400 mg PO QID PRN (Reason: cough) Qty: 120 6RF albuterol sulfate 2.5 mg /3 mL (0.083 %) solution for nebulization 2.5 mg inhalation Q4H PRN (Reason: shortness of breath or wheezing) Qty: 360 0RF acetaminophen 325 mg Tablet 650 mg PO QID PRN (Reason: Pain) ipratropium-albuterol 0.5 mg-3 mg(2.5 mg base)/3 mL Solution For Nebulization 3 ml INHALATION Q6H PRN (Reason: Shortness Of Breath) naloxone 0.4 mg/mL Solution 0.4 mg SUBCUT Q3M PRN (Reason: Opiate Reversal) Rx Instructions: NTExceed 10 mg total dose/episode sennosides-docusate sodium 8.6-50 mg Tablet 2 tab-cap PO BEDTIME potassium chloride 10 mEq Tablet Extended Release 10 meq PO DAILY hydrocodone-acetaminophen 10-325 mg Tablet 1 tab PO Q4H PRN (Reason: Pain) alprazolam 0.5 mg Tablet 0.5 mg PO TID PRN (Reason: Anxiety) magnesium hydroxide [Milk of Magnesia] 400 mg/5 mL Suspension 30 ml PO Q3D PRN (Reason: Constipation) bisacodyl [Dulcolax (bisacodyl)] 10 mg Suppository 10 mg NC DAILY PRN (Reason: Constipation) hyoscyamine sulfate 0.125 mg Tablet 0.125 mg PO Q4H PRN (Reason: Secretions) nystatin 100,000 unit/gram Cream 1 applic TOPICAL BID PRN (Reason: prn) metoprolol tartrate 50 mg Tablet 50 mg PO BID Fleet Enema 19-7 gram/118 mL Enema 118 ml NC DAILY PRN (Reason: Constipation) bisacodyl [Dulcolax (bisacodyl)] 5 mg Tablet,Delayed Release (Dr/Ec) 10 mg PO DAILY PRN (Reason: Constipation) aspirin 81 mg Tablet 81 mg PO DAILY escitalopram oxalate 10 mg Tablet 10 mg PO DAILY levalbuterol tartrate 45 mcg/actuation Hfa Aerosol Inhaler 2 inh INHALATION Q6H PRN (Reason: Shortness Of Breath) levetiracetam 1,000 mg Tablet 1,000 mg PO BID cholecalciferol (vitamin D3) 25 mcg (1,000 unit) Tablet 100 mcg PO DAILY menthol-zinc oxide [Calmoseptine] 0.44-20.6 % Ointment 1 applic TOPICAL TID morphine concentrate 20 mg/mL Syringe 10 mg SUBLINGUAL Q2H PRN (Reason: Severe Pain (Scale Score 7-10)) guaifenesin 600 mg Tablet Extended Release 12hr 600 mg PO BID budesonide 0.5 mg/2 mL suspension for nebulization 0.5 mg inhalation Q4H PRN (Reason: Shortness Of Breath) furosemide [Lasix] 20 mg tablet 20 mg PO BID Discontinued amoxicillin-pot clavulanate 875-125 mg Tablet 1 tab PO BID Discharge Orders: Discharge Order (Routine); Ordered 05/29/24 Ordered By: Clay Coleman Other Ambulatory Orders: DME: BIPAP (Order) Location: None Selected Ordered By: Clay Coleman DME: CPAP (Order) Location: None Selected Ordered By: Clay Coleman Referrals: Jackie Kulkarni MD [Primary Care Provider] - 4-7 days Discharge Diet: As Directed Discharge Activity: Cpap/Bipap as instructed Patient Instructions: Prednisone (By mouth), Azithromycin (By mouth), Cefdinir (By mouth), Hospice Care (GEN), Opioid Safety Activity Restrictions/Additional Instructions: Continue dysphagia level 6 diet. Aspiration precautions. Complete antibiotic and steroid course for COPD. Continue Lasix for congestive heart failure. Follow up with your primary doctor regarding hematoma or occluded pseudoaneurysm in the region of left common femoral artery incidentally seen on ultrasound. Discharge Attestations Time Spent in Discharge Care*: greater than 30 min Quality Metrics Clinical Quality Measures [ No reported AMI, CVA or VTE this stay] Coding Level of Care Code 81708 Total time (in minutes) for Discharge: 45 Diagnoses Acute on chronic respiratory failure with hypoxia and hypercapnia J96.21; J96.22 Acute exacerbation of chronic obstructive airways disease J44.1 Aspiration pneumonia J69.0 CHF (congestive heart failure) I50.9 Swelling of lower limb M79.89 Elevated d-dimer R79.89 Blue toe syndrome of left lower extremity I75.022 Persistent atrial fibrillation I48.19 DA (obstructive sleep apnea) G47.33 S/P AKA (above knee amputation) Z89.619 Goals of care, counseling/discussion Z71.89
--- NOTE | 2024-05-29 12:07 | PC.NURSE ---
This nurse called report to SHIMA Velazquez at [facility] at [phone]. Will call Lalit Bobby to arrange for transport.
[2024-05-29] MEDS: acetaminophen 325 mg Tablet 650 MG PO (12:17)
== END 2024-05-29 13:01 | disposition skilled nursing facility (03) | DRG 177 ==
LOC: ER 19:58 → MEDSURG 21:20
PROVIDERS: Admitting Provider Student in an Organized Health Care Education/Training Program; Emergency Provider Emergency Medicine; PCP Family Medicine; Visit Provider Internal Medicine
DX: J69.0 Pneumonitis due to inhalation of food and vomit (principal); I50.33 Acute on chronic diastolic (congestive) heart failure; J96.22 Acute and chronic respiratory failure with hypercapnia; J96.21 Acute and chronic respiratory failure with hypoxia; J44.1 Chronic obstructive pulmonary disease with (acute) exacerbation; I48.19 Other persistent atrial fibrillation; I75.022 Atheroembolism of left lower extremity; I11.0 Hypertensive heart disease with heart failure; E78.5 Hyperlipidemia, unspecified; I73.9 Peripheral vascular disease, unspecified; I27.20 Pulmonary hypertension, unspecified; G47.33 Obstructive sleep apnea (adult) (pediatric); Z66 Do not resuscitate; F32.A Depression, unspecified; Z79.51 Long term (current) use of inhaled steroids; Z79.82 Long term (current) use of aspirin; Z11.52 Encounter for screening for COVID-19; Z89.611 Acquired absence of right leg above knee; Z98.890 Other specified postprocedural states; Z95.820 Peripheral vascular angioplasty status with implants and grafts; Z99.81 Dependence on supplemental oxygen; Z87.01 Personal history of pneumonia (recurrent); Z86.718 Personal history of other venous thrombosis and embolism; Z87.891 Personal history of nicotine dependence
CPT/HCPCS: 36415; 36600; 51702; 71045; 71275; 74230; 80048; 80051; 80053; 81001; 82330; 82607; 82746; 82803; 82805; 83540; 83550; 83605; 83735; 83880; 84100; 84145; 85025; 85378; 86403; 87040; 87070; 87205; 87426; 87449; 87486; 87581; 87633; 92610; 92611; 93005; 93926; 93971; 94640; 94660; 96372; 96374; 96375; 99285; J0696; J1644; J1940; J2270; J2919; J7613; J7614; J7626; J7644; Q0144